=== PATIENT | male | born 1950 | race Caucasian/White ===

== ENCOUNTER 2017-10-23 12:41 | Outpatient (RCR) | payer MEDICARE, OTHER, SELFPAY ==
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
--- NOTE | 2017-11-05 16:37 | NT_ITS ---
NON TREATMENT NOTE: 11/05/17 Patient was a no show no call for today's appointment.
== END 2017-11-09 23:59 | disposition home or self-care (01) ==
LOC: PT 12:41
PROVIDERS: PCP Family Medicine; Referring Provider Family Medicine; Visit Provider Family Medicine
DX: M54.5 Low back pain (principal); M53.86 Other specified dorsopathies, lumbar region
CPT/HCPCS: 97162; G8978

== ENCOUNTER 2017-11-26 15:46 | Outpatient (REF) | payer MEDICARE, OTHER, SELFPAY ==
[2017-11-26 22:39] LABS: Abs Immature Grans 0.02 k/cumm (0.0-0.09); Absolute Basophil Count 0.04 k/cumm (0.0-0.2); Absolute Eosinophil Count 0.09 k/cumm (0.0-0.7); Absolute Lymphocyte Count 1.63 k/cumm (1.2-3.4); Absolute Monocyte Count 0.48 k/cumm (0.11-0.7); Absolute Neutrophil Count 4.09 k/cumm (1.2-6.7); Basophils % 0.6; Eosinophils % 1.4; HCT 41.3 % (40.0-50.0); Immature Grans % 0.3; Lymphocytes % 25.7; Mean Corp. HGB Concentration 33.9 g/dL (32.0-36.0); Mean Corpuscular Hemoglobin 29.2 pg (27.0-33.0); Mean Corpuscular Volume 86.2 fL (80-95); Mean Platelet Volume 10.8 fL (8.0-11.0); Monocytes % 7.6; Neutrophils % 64.4; Platelet Count 228 x1000/uL (130-400); RBC 4.79 m/cumm (4.50-6.00); RBC Distribution Width 13.8 % (11.8-14.1); White Blood Cell Count 6.35 k/cumm (4.4-10.8)
[2017-11-26 22:42] LABS: ALT 17 U/L (12-78); AST 11 U/L (15-37); Albumin 3.1 g/dL (3.4-5.0); Alkaline Phosphatase 90 U/L (46-116); Anion Gap 9.5 mmol/L (3-11); BUN 22 mg/dL (7-18); CO2 26.5 mmol/L (21.0-32.0); CREATININE 1.26 mg/dL (0.70-1.30); Calcium 9.1 mg/dL (8.5-10.1); Chloride 98 mmol/L (98-107); Estimated GFR 57.44 (mL/min/1.73m2); Glucose 326 mg/dL (70-100); Potassium 3.8 mmol/L (3.5-5.1); Sodium 134 mmol/L (136-145); TSH (W/Ref FT4) 10.99 uIU/mL (0.358-3.74); Total Protein 6.7 g/dL (6.4-8.2)
[2017-11-26 23:12] LABS: FREE T4 0.87 ng/dL (0.76-1.46)
== END 2017-11-26 16:06 ==
LOC: NCHCN 15:46
PROVIDERS: PCP Family Medicine; Visit Provider Family Medicine
DX: K21.9 Gastro-esophageal reflux disease without esophagitis (principal); N28.9 Disorder of kidney and ureter, unspecified; F32.9 Major depressive disorder, single episode, unspecified; E11.9 Type 2 diabetes mellitus without complications
CPT/HCPCS: 80053; 84439; 84443; 85025

== ENCOUNTER → 2018-01-15 09:00 | Outpatient (BNVA) | payer MEDICARE, OTHER, MEDICAID, SELFPAY | PROVIDERS: PCP Family Medicine; Visit Provider Nurse Practitioner Family | DX: I25.810 Atherosclerosis of coronary artery bypass graft(s) without angina pectoris (principal); Z95.818 Presence of other cardiac implants and grafts; R00.1 Bradycardia, unspecified; I44.2 Atrioventricular block, complete; Z45.018 Encounter for adjustment and management of other part of cardiac pacemaker; I35.0 Nonrheumatic aortic (valve) stenosis; G47.30 Sleep apnea, unspecified; I10 Essential (primary) hypertension; E11.40 Type 2 diabetes mellitus with diabetic neuropathy, unspecified; Z79.4 Long term (current) use of insulin; J44.9 Chronic obstructive pulmonary disease, unspecified | CPT/HCPCS: 93288; 99213 ==

== ENCOUNTER 2018-06-20 16:46 | Outpatient (REF) | payer MEDICARE, OTHER, SELFPAY, MEDICAID ==
[2018-06-20 21:43] LABS: Anion Gap 8.5 mmol/L (3-11); BUN 27 mg/dL (7-18); CO2 29.5 mmol/L (21.0-32.0); CREATININE 1.38 mg/dL (0.70-1.30); Calcium 9.1 mg/dL (8.5-10.1); Chloride 92 mmol/L (98-107); Estimated GFR 51.71 (mL/min/1.73m2); Glucose 493 mg/dL (70-100); Potassium 4.2 mmol/L (3.5-5.1); Sodium 130 mmol/L (136-145)
== END 2018-06-20 17:06 ==
LOC: NCHCN 16:46
PROVIDERS: PCP Family Medicine; Visit Provider Registered Nurse
DX: I10 Essential (primary) hypertension (principal); E11.9 Type 2 diabetes mellitus without complications
CPT/HCPCS: 80048

== ENCOUNTER 2018-07-10 13:23 | Emergency (ER) | payer MEDICARE, OTHER, MEDICAID, SELFPAY ==
[2018-07-10 13:31] VITALS: BP 147/76; PULSE 70; RESP 14; TEMP 36.6; O2SAT 98
--- NOTE | 2018-07-10 13:40 | ED.GENADUL_ITS ---
Discharge Plan Disposition Patient Disposition: HOME Condition: Stable Discharge Details Chief Complaint: RashLesion Clinical Impression: Abrasion of leg, left Primary Care Provider: [facility] ED Provider: Juan A Mcgraw Home Meds and New Rx's Prescriptions: No Action cholecalciferol (vitamin D3) 1,000 UNIT capsule 1,000 unit PO DAILY RF: 0 beclomethasone dipropionate [Qvar] 8.7 GM aerosol 2 puff Inhalation BID RF: 0 mometasone [Nasonex] 17 GM spray,non-aerosol 2 spry NS DAILY RF: 0 fluticasone propion-salmeterol [Advair Diskus] 1 EACH blister with device 1 puff Inhalation BID RF: 0 clopidogrel [Plavix] 75 MG tablet 75 mg PO DAILY RF: 0 oxycodone-acetaminophen [Percocet] 1 EACH tablet 1 tab-cap PO Q6H PRN RF: 0 econazole 15 GM cream 15 gm Topical BID RF: 0 ketorolac [Acular LS] 5 ML drops 1 drp Ophthalmic QID RF: 0 chlorhexidine gluconate [Peridex] 473 ML mouthwash 473 ml Mucous Membrane BID RF: 0 albuterol sulfate [ProAir RespiClick] 90 MCG aerosol powdr breath activated 90 mcg Inhalation Q4H PRN RF: 0 insulin lispro [Humalog KwikPen Insulin] 200 UNIT/1 ML insulin pen 200 unit SQ as directed RF: 0 tamsulosin 0.4 MG capsule 0.4 mg PO DAILY RF: 0 insulin aspart U-100 [Novolog Flexpen U-100 Insulin] 100 UNIT/1 ML insulin pen 30 Sub-Q TID RF: 0 umeclidinium [Incruse Ellipta] 62.5 MCG blister with device 1 puff Inhalation DAILY RF: 0 ezetimibe [Zetia] 10 MG tablet 10 mg PO QAM RF: 0 aspirin [Aspir-81] 81 MG tablet,delayed release (DR/EC) 81 mg PO QAM RF: 0 bupropion HCl 300 MG tablet extended release 24 hr 300 mg PO QAM RF: 0 escitalopram oxalate [Lexapro] 20 MG tablet 20 mg PO QAM RF: 0 isosorbide mononitrate 120 MG tablet extended release 24 hr 120 mg PO QAM RF: 0 furosemide 40 MG tablet 40 mg PO DAILY RF: 0 atorvastatin [Lipitor] 80 MG tablet 80 mg PO HS RF: 0 ropinirole 2 MG tablet 2 mg PO HS RF: 0 metformin 500 MG tablet extended release 24 hr 500 mg PO BID RF: 0 nitroglycerin [Nitrostat] 0.4 MG tablet, sublingual 0.4 mg Sublingual PRN PRNRF: 0 multivitamin [Daily Multi-Vitamin] 1 EACH tablet 2 tab PO QAM RF: 0 losartan 25 MG tablet 25 mg PO DAILY RF: 0 metoprolol succinate 100 MG tablet extended release 24 hr 100 mg PO DAILY RF: 0 levothyroxine 150 MCG tablet 150 mcg PO DAILY RF: 0 clotrimazole 15 GM cream 1 applic Topical RF: 0 insulin glargine [Lantus Solostar U-100 Insulin] 100 UNIT/ML insulin pen 54 unit SQ QAM RF: 0 omeprazole 20 MG capsule,delayed release(DR/EC) 40 mg PO BID Qty: 0 RF: 0 meclizine 25 MG tablet 25 mg PO Q8H PRN (Reason: Vertigo) Qty: 20 RF: 0 Discharge Instructions Instructions: Abrasion (ED) Additional Instructions: Continue to take your normally prescribed daily medication and apply bacitracin ointment 2 times daily to the wound and continue to observe over the next couple days. For any significant worsening of symptoms, odorous drainage, or spreading redness please return to emergency department or your primary care provider for reassessment. Referrals: [facility] [Primary Care Provider] - (As needed for reassessment or if wound is not healing) Medical Decision Making Patient presenting the emergency department for chief complaint of injury to left lower leg. Patient states approximately 6 days ago he had a side table fall and strike him in the back of the left lower leg. People have asked him what happened making him concerned due to his diabetes about needing to get it checked out. Patient has a superficial abrasion with appropriate healing scabbing and mild redness to the area but no spreading redness, no streaking, patient denies any severe pain or discomfort and no other symptoms are noted. Wound does not appear to be infected at this time and appears appropriate for superficial abrasion. Given patient is a diabetic he was instructed on bacitracin use and informed that he should use this twice daily for the next 3 days and continue to watch wound closely and return for any new or significant worsening of symptoms. Full return precautions were discussed. After discussion of diagnosis and plan of care patient has no further needs, questions, or concerns and states clear understanding to return to the emergency department for any worsening symptoms. HPI General Mode of arrival: ambulatory . Date/Time Provider Initiated Documentation: 07/10/18 13:26 . Limitations to Documentation: no limitations . Information obtained by: patient and RN notes reviewed . History of Present Ill last 68 year old M presents to the emergency department with the chief complaint of Left leg injury, described as mild, with intensity rated at 2. Quality is described as aching, and is localized to the left and lower extremity. Patient started experiencing this day(s) (6) and it has been constant. No relieving factors improve symptom(s), No exacerbating factors reported . Patient notes no other symptoms.. Patient did receive the following treatments prior to arrival, none Related Data Home Medications Medication Instructions Recorded Confirmed aspirin [Aspir-81] 81 mg PO QAM 01/05/14 01/15/18 atorvastatin [Lipitor] 80 mg PO HS 01/05/14 01/15/18 bupropion HCl 300 mg PO QAM 01/05/14 01/15/18 escitalopram oxalate [Lexapro] 20 mg PO QAM 01/05/14 01/15/18 ezetimibe [Zetia] 10 mg PO QAM 01/05/14 01/15/18 furosemide 40 mg PO DAILY 01/05/14 01/15/18 isosorbide mononitrate 120 mg PO QAM 01/05/14 01/15/18 metformin 500 mg PO BID 01/05/14 01/15/18 multivitamin [Daily Multi-Vitamin] 2 tab PO QAM 01/05/14 01/15/18 nitroglycerin [Nitrostat] 0.4 mg SUBLINGUAL PRN PRN 01/05/14 01/15/18 ropinirole 2 mg PO HS 01/05/14 01/15/18 cholecalciferol (vitamin D3) 1,000 unit PO DAILY 04/21/15 01/15/18 losartan 25 mg PO DAILY 02/12/16 01/15/18 beclomethasone dipropionate [Qvar] 2 puff INHALATION BID inhaler 03/01/16 01/15/18 meclizine 25 mg PO Q8H PRN #20 tab 11/08/16 01/15/18 mometasone [Nasonex] 2 spry NS DAILY spray 01/08/17 01/15/18 clotrimazole 1 applic TOPICAL 04/02/17 01/15/18 insulin glargine [Lantus Solostar 54 unit SQ QAM 04/02/17 01/15/18 U-100 Insulin] levothyroxine 150 mcg PO DAILY 04/02/17 01/15/18 metoprolol succinate 100 mg PO DAILY 04/02/17 01/15/18 omeprazole 40 mg PO BID #0 tab-cap 04/02/17 01/15/18 albuterol sulfate [ProAir 90 mcg INHALATION Q4H PRN 07/10/17 01/15/18 RespiClick] chlorhexidine gluconate [Peridex] 473 ml MUCOUS MEMBRANE BID 07/10/17 01/15/18 clopidogrel [Plavix] 75 mg PO DAILY tab-cap 07/10/17 01/15/18 econazole 15 gm TOPICAL BID 07/10/17 01/15/18 fluticasone propion-salmeterol 1 puff INHALATION BID disk 07/10/17 01/15/18 [Advair Diskus] insulin lispro [Humalog KwikPen 200 unit SQ as directed 07/10/17 01/15/18 Insulin] ketorolac [Acular LS] 1 drp OPHTHALMIC QID drp 07/10/17 01/15/18 oxycodone-acetaminophen [Percocet] 1 tab-cap PO Q6H PRN tab-cap 07/10/17 01/15/18 insulin aspart U-100 [Novolog 30 SUB-Q TID 07/20/17 01/15/18 Flexpen U-100 Insulin] tamsulosin 0.4 mg PO DAILY tab-cap 07/20/17 01/15/18 umeclidinium [Incruse Ellipta] 1 puff INHALATION DAILY 07/20/17 01/15/18 Previous Rx's Medication Instructions Recorded meclizine 25 mg PO Q8H PRN #20 tab 11/08/16 omeprazole 40 mg PO BID #0 tab-cap 04/02/17 Allergies Allergy/AdvReac Type Severity Reaction Status Date / Time No Known Allergies Allergy Unverified 07/10/18 13:35 General Stated Complaint: RashLesion DAYLIN: 5 Review of Systems Constitutional Denies chills and Denies fever(s) Cardiovascular Denies chest pain and Denies dyspnea Respiratory Denies dyspnea Integumentary/Breasts Reports as per HPI and Reports erythema PFSH Medical History Aortic valve replaced CAD (coronary artery disease) COPD (chronic obstructive pulmonary disease) DM (diabetes mellitus) Diabetic neuropathy HTN (hypertension) Hypothyroidism IVETTE (obstructive sleep apnea) Pacemaker Renal insufficiency Surgical History Coronary Artery Bypass Gaft (CABG) Coronary Stent Pacemaker Replacement of aortic valve Social History Smoking/Tobacco Use Status: Never Drug use: Never Do you feel safe at home: Yes Do you feel safe in your relationship?: Yes Exam Const General: cooperative, no acute distress and not ill appearing Orientation: alert, awake and oriented x3 Resp Effort & Inspection: normal respiratory effort, able to speak in complete sentences and no respiratory distress Skin Trauma: abrasion (Superficial abrasion to posterior distal tib-fib) Neuro General: alert, awake and oriented x3 Course Vital Signs Temperature 36.6 C 07/10/18 13:31 Pulse 70 07/10/18 13:31 Respiratory Rate 14 07/10/18 13:31 Blood Pressure 147/76 H 07/10/18 13:31 Pulse Oximetry 98 07/10/18 13:31 Temperature 36.6 C 07/10/18 13:31 Temperature Source Temporal Artery Scan 07/10/18 13:31 Pulse 70 07/10/18 13:31 Respiratory Rate 14 07/10/18 13:31 Respiratory Effort Non-Labored 07/10/18 13:32 Blood Pressure 147/76 H 07/10/18 13:31 Blood Pressure Position Sitting 07/10/18 13:31 Pulse Oximetry 98 07/10/18 13:31 Oxygen Delivery Method Room Air 07/10/18 13:31 Oxygen Flow Rate 0 07/10/18 13:31 Pain Level 0 07/10/18 13:31
== END 2018-07-10 13:46 | disposition home or self-care (01) ==
LOC: ER 13:57
PROVIDERS: Emergency Provider Nurse Practitioner Family; PCP Registered Nurse
DX: S80.812A Abrasion, left lower leg, initial encounter (principal); W22.8XXA Striking against or struck by other objects, initial encounter; E11.9 Type 2 diabetes mellitus without complications; Z79.4 Long term (current) use of insulin
CPT/HCPCS: 99282

== ENCOUNTER → 2018-07-23 13:04 | Outpatient (BNVA) | payer MEDICARE, OTHER, SELFPAY, MEDICAID | PROVIDERS: PCP Registered Nurse; Visit Provider Nurse Practitioner Family | DX: I25.10 Atherosclerotic heart disease of native coronary artery without angina pectoris (principal); J44.9 Chronic obstructive pulmonary disease, unspecified; E11.40 Type 2 diabetes mellitus with diabetic neuropathy, unspecified; I10 Essential (primary) hypertension; I49.5 Sick sinus syndrome; Z45.018 Encounter for adjustment and management of other part of cardiac pacemaker; N18.9 Chronic kidney disease, unspecified; E11.22 Type 2 diabetes mellitus with diabetic chronic kidney disease | CPT/HCPCS: 93280; 99212; 99214 ==

== ENCOUNTER 2018-07-23 13:51 | Emergency (ER) | payer MEDICARE, OTHER, MEDICAID, SELFPAY ==
[2018-07-23] VITALS (14 sets, daily range): BP systolic 90–117; BP diastolic 54–67; PULSE 61–69; RESP 11–23; TEMP 36.6; O2SAT 90–99
--- NOTE | 2018-07-23 13:54 | DI.RAD_ITS ---
SYMPTOMS/DIAGNOSIS: FATIGUE PA AND LATERAL CHEST: Comparison is made with July,. Cardiomegaly, pacemaker, sternal wires, coronary artery stents and proximal aortic stent are again noted. The lungs appear clear. No infiltrate, effusion or pulmonary edema is seen. There is no visible mass or adenopathy. IMPRESSION: No acute abnormality.
[2018-07-23 14:10] LABS: Abs Immature Grans 0.01 k/cumm (0.0-0.09); Absolute Basophil Count 0.07 k/cumm (0.0-0.2); Absolute Eosinophil Count 0.16 k/cumm (0.0-0.7); Absolute Monocyte Count 0.42 k/cumm (0.11-0.7); Absolute Neutrophil Count 3.03 k/cumm (1.2-6.7); Basophils % 1.3; HCT 40.2 % (40.0-50.0); HGB 14.2 g/dL (13.5-17.5); Immature Grans % 0.2; Lymphocytes % 31.5; Mean Corp. HGB Concentration 35.3 g/dL (32.0-36.0); Mean Corpuscular Hemoglobin 29.8 pg (27.0-33.0); Mean Corpuscular Volume 84.3 fL (80-95); Mean Platelet Volume 10.2 fL (8.0-11.0); Monocytes % 7.8; Neutrophils % 56.2; Platelet Count 226 x1000/uL (130-400); RBC 4.77 m/cumm (4.50-6.00); RBC Distribution Width 13.1 % (11.8-14.1); White Blood Cell Count 5.39 k/cumm (4.4-10.8)
[2018-07-23 14:35] LABS: ALT 23 U/L (12-78); AST 13 U/L (15-37); Albumin 2.9 g/dL (3.4-5.0); Alkaline Phosphatase 89 U/L (46-116); Anion Gap 6.9 mmol/L (3-11); BUN 28 mg/dL (7-18); CO2 29.1 mmol/L (21.0-32.0); CREATININE 1.65 mg/dL (0.70-1.30); Chloride 89 mmol/L (98-107); Estimated GFR 41.95 (mL/min/1.73m2); Lipase 312 U/L (73-393); NT-proBNP 848 pg/mL; Potassium 4.6 mmol/L (3.5-5.1); Sodium 125 mmol/L (136-145); TSH (W/Ref FT4) 11.58 uIU/mL (0.358-3.74); Total Protein 7.3 g/dL (6.4-8.2); Troponin I 0.02 ng/mL (0.00-0.06)
--- NOTE | 2018-07-23 14:44 | W.ED.GENAD ---
Discharge Plan Disposition Patient Disposition: HOME Condition: Good Discharge Details Chief Complaint: Chest Pain Clinical Impression: Hyperglycemia, Medically noncompliant, Acute hyponatremia, Disease of thyroid gland Primary Care Provider: ALEXUS LAN ED Provider: Torsten Diane Home Meds and New Rx's Prescriptions: No Action mirtazapine 15 mg tablet 15 mg PO DAILY RF: 0 Slow-Mag 71.5 mg tablet,delayed release (DR/EC) 71.5 mg PO BID RF: 0 cholecalciferol (vitamin D3) 1,000 UNIT capsule 1,000 unit PO DAILY RF: 0 beclomethasone dipropionate [Qvar] 8.7 GM aerosol 2 puff Inhalation BID RF: 0 fluticasone propion-salmeterol [Advair Diskus] 1 EACH blister with device 1 puff Inhalation BID RF: 0 albuterol sulfate [ProAir RespiClick] 90 MCG aerosol powdr breath activated 90 mcg Inhalation Q4H PRN RF: 0 insulin lispro [Humalog KwikPen Insulin] 200 UNIT/1 ML insulin pen 200 unit SQ as directed RF: 0 tamsulosin 0.4 MG capsule 0.4 mg PO DAILY RF: 0 insulin aspart U-100 [Novolog Flexpen U-100 Insulin] 100 UNIT/1 ML insulin pen 30 Sub-Q TID RF: 0 umeclidinium [Incruse Ellipta] 62.5 MCG blister with device 1 puff Inhalation DAILY RF: 0 ezetimibe [Zetia] 10 MG tablet 10 mg PO QAM RF: 0 aspirin [Aspir-81] 81 MG tablet,delayed release (DR/EC) 81 mg PO QAM RF: 0 escitalopram oxalate [Lexapro] 20 MG tablet 20 mg PO QAM RF: 0 isosorbide mononitrate 120 MG tablet extended release 24 hr 120 mg PO QAM RF: 0 furosemide 40 MG tablet 40 mg PO DAILY RF: 0 atorvastatin [Lipitor] 80 MG tablet 80 mg PO HS RF: 0 ropinirole 2 MG tablet 2 mg PO HS RF: 0 metformin 500 MG tablet extended release 24 hr 500 mg PO BID RF: 0 nitroglycerin [Nitrostat] 0.4 MG tablet, sublingual 0.4 mg Sublingual PRN PRNRF: 0 multivitamin [Daily Multi-Vitamin] 1 EACH tablet 2 tab PO QAM RF: 0 losartan 25 mg tablet 100 mg PO DAILY RF: 0 metoprolol succinate 100 MG tablet extended release 24 hr 100 mg PO DAILY RF: 0 levothyroxine 150 MCG tablet 150 mcg PO DAILY RF: 0 insulin glargine [Lantus Solostar U-100 Insulin] 100 UNIT/ML insulin pen 54 unit SQ QAM RF: 0 omeprazole 20 MG capsule,delayed release(DR/EC) 40 mg PO BID Qty: 0 RF: 0 meclizine 25 MG tablet 25 mg PO Q8H PRN (Reason: Vertigo) Qty: 20 RF: 0 Discharge Instructions Instructions: Diabetic Hyperglycemia (ED) Additional Instructions: Please take your insulin and Lantus as directed, do not miss any doses. Please eat foods high in salt over the next few days as your sodium is slightly low. Your thyroid level certainly needs further management, and reassessment by a primary care provider. If you change your mind on wanting a family doctor please let us know and we will be happy to set one up for you immediately. Please drink some Gatorade over the next few days to be well-hydrated and supplement your sodium levels. If you notice any worsening of your symptoms, or any new symptoms such as vomiting, diarrhea, fever, chills, shortness of breath, chest pain, numbness, weakness, or fainting , please return immediately to the emergency department for reevaluation. Please follow up with your primary care provider as soon as possible for reassessment and reevaluation. As always, it was a pleasure participating in your medical care today. Referrals: ALEXUS LAN NP [Primary Care Provider] - Discharge Data Discharge Date/Time-TO BE ENTERED AT DEPARTURE: 07/23/18 17:30 Medical Decision Making This is a pleasant 68-year-old male with past medical history COPD, coronary artery disease, pacemaker defibrillator, anemia and anxiety who presents today for generalized feelings of unwellness. He was getting his pacemaker defibrillator interrogated but while up there medical staff felt that he looked unwell, and recommended that he come in for further evaluation. Currently the patient has no complaints to speak of. He does have some chronic chest pain which he states is unchanged, occasional loose stools mild nausea and cough. Very nonspecific symptoms. I did ask the patient if he felt sad, depressed, or suicidal. He states that he does feel little sad but does not feel depressed and has had no thoughts of taking his life. He states specifically that he does not want any resources or any help at this time. He also reassures me that he is not a danger to himself. We will perform a cardiac work-up, imaging of his chest, rehydrate, and perform laboratory work-up 18: 00 Patient's laboratory work-up has returned, he demonstrates a notably elevated glucose at 700. No evidence of acidosis, and bicarb is normal. I discussed this with the patient and he states that for the last few days he has not been checking his sugar levels and he has not been taking his insulin. I have asked why and he states that he just does not feel like taking it. Remainder of his laboratory work-up is returned, EKG is relatively benign, troponin is normal, sodium is low at 125, he has been gently rehydrated with normal saline here. Upon reassessment he is actually feeling much better after the rehydration. We did give the patient 30 units of subcu insulin, and his sugars are beginning to trend downwards with this. I discussed admission, continued fluids, and further management with the patient, however he has made it very clear that he feels fine, and he would like to go home and he does not want to be admitted. Additionally he does not want additional lab testing for further cardiac evaluation. He states very clearly that he understands his risks, his current medical status, as well as the importance of medical noncompliance and the risk of not complying with this. The patient is asking to go home. I again offered him multiple resources for both mental health counseling, help and assistance at home, as well as new primary care provider referral for management of his diabetes, and he reiterates multiple times that he does not want any additional assistance, he feels that he will be able to control care for himself medically on his own. Respecting the patient's wishes we will allow him to be discharged home, and he understands the notable risk of this. He is of clear mind, and demonstrates good decision-making capacity. I discussed with him that he can return at any time for continued and further management, and all he needs to do is contact us and we will set him up with a PCP or counselors on an outpatient basis. I have extensively reviewed the treatment plan and discharge instructions with the patient. I have addressed all patient concerns at this time. The patient was made aware of what symptoms to monitor for that would warrant a return to the emergency department. Discussed the plan with the patient, they demonstrate verbal understanding and agreement with our assessment and plan at this time. EKG 13: 57 Rate 60 intervals normal, sinus rhythm, right bundle branch block, findings are consistent with previous EKG on 06/01/2017 and 10/04/2017. No acute changes. No significant ST changes. High sugar, sugar going down, patient wanting to go Exam(s) a RAD:XR chest 2V PA & lateral SYMPTOMS/DIAGNOSIS: FATIGUE PA AND LATERAL CHEST: Comparison is made with July,. Cardiomegaly, pacemaker, sternal wires, coronary artery stents and proximal aortic stent are again noted. The lungs appear clear. No infiltrate, effusion or pulmonary edema is seen. There is no visible mass or adenopathy. IMPRESSION: No acute abnormality. Ordered By: Torsten Diane DO [facility] General Date/Time Provider Initiated Documentation: 07/23/18 13:54. HPI Narrative: This is a pleasant 68-year-old male with a past medical history of pacemaker defibrillator, coronary artery disease, COPD, diabetes, depression, irritable bowel syndrome, hypothyroidism, chronic anemia, who presents today for evaluation of malaise. The patient was getting his pacemaker interrogated at a standard visit appointment with his machine try out setter. While up there the medical staff noticed that he appeared more fatigued, pale, and were concerned. The recommend he go down to the ER for further evaluation. Pacemaker interrogation at that time per medical staff was negative with no abnormalities. On my assessment the patient does have a complaint of chronic left-sided chest pain, he states that it is unchanged from his normal feeling. He has had it for months upon months, and there is been no acute worsening or change. He does admit to an occasional cough which is unchanged, occasional diarrhea and nausea but no vomiting. He denies any fever or chills. He denies any abdominal pain. He denies any numbness tingling or weakness. He has no other complaints at this time. He denies any other modifying factors. Related Data Home Medications Medication Instructions Recorded Confirmed aspirin [Aspir-81] 81 mg PO QAM 01/05/14 07/23/18 atorvastatin [Lipitor] 80 mg PO HS 01/05/14 07/23/18 escitalopram oxalate [Lexapro] 20 mg PO QAM 01/05/14 07/23/18 ezetimibe [Zetia] 10 mg PO QAM 01/05/14 07/23/18 furosemide 40 mg PO DAILY 01/05/14 07/23/18 isosorbide mononitrate 120 mg PO QAM 01/05/14 07/23/18 metformin 500 mg PO BID 01/05/14 07/23/18 multivitamin [Daily Multi-Vitamin] 2 tab PO QAM 01/05/14 07/23/18 nitroglycerin [Nitrostat] 0.4 mg SUBLINGUAL PRN PRN 01/05/14 07/23/18 ropinirole 2 mg PO HS 01/05/14 07/23/18 cholecalciferol (vitamin D3) 1,000 unit PO DAILY 04/21/15 07/23/18 beclomethasone dipropionate [Qvar] 2 puff INHALATION BID inhaler 03/01/16 01/15/18 meclizine 25 mg PO Q8H PRN #20 tab 11/08/16 07/23/18 insulin glargine [Lantus Solostar 54 unit SQ QAM 04/02/17 01/15/18 U-100 Insulin] levothyroxine 150 mcg PO DAILY 04/02/17 07/23/18 metoprolol succinate 100 mg PO DAILY 04/02/17 07/23/18 omeprazole 40 mg PO BID #0 tab-cap 04/02/17 07/23/18 albuterol sulfate [ProAir 90 mcg INHALATION Q4H PRN 07/10/17 01/15/18 RespiClick] fluticasone propion-salmeterol 1 puff INHALATION BID disk 07/10/17 01/15/18 [Advair Diskus] insulin lispro [Humalog KwikPen 200 unit SQ as directed 07/10/17 01/15/18 Insulin] insulin aspart U-100 [Novolog 30 SUB-Q TID 07/20/17 01/15/18 Flexpen U-100 Insulin] tamsulosin 0.4 mg PO DAILY tab-cap 07/20/17 07/23/18 umeclidinium [Incruse Ellipta] 1 puff INHALATION DAILY 07/20/17 01/15/18 losartan 25 mg tablet 100 mg PO DAILY tab 07/23/18 07/23/18 magnesium 71.5 mg (magnesium 71.5 mg PO BID tab 07/23/18 07/23/18 chloride) tablet,delayed release mirtazapine 15 mg tablet 15 mg PO DAILY 07/23/18 07/23/18 Previous Rx's Medication Instructions Recorded meclizine 25 mg PO Q8H PRN #20 tab 11/08/16 omeprazole 40 mg PO BID #0 tab-cap 04/02/17 Allergies Allergy/AdvReac Type Severity Reaction Status Date / Time No Known Allergies Allergy Unverified 07/23/18 14:04 General Stated Complaint: Chest Pain DAYLIN: 2 Review of Systems Review of Systems All systems reviewed & are unremarkable except as noted in HPI and below PFSH Social History Smoking/Tobacco Use Status: Never Alcohol Intake: never Drug use: Never Do you feel safe at home: Yes Do you feel safe in your relationship?: Yes Exam Narrative Exam Narrative: 1.Const: Well-nourished, Well-developed, appearing stated age, morbidly obese 2.Eyes: PERRL, no conjunctival injection, and symmetrical lids. 3.ENT: Atraumatic external nose and ears. Moist MM. Neck: Symmetric, trachea midline, No thyromegaly. 4.CVS: +S1/S2, No murmurs or gallops. Peripheral pulses 2+ and equal in all extremities. Brisk capillary refill in all extremities. Questionable mild reproducible left-sided chest pain on palpation in the epigastric region 5.RESP: Unlabored respiratory effort. Clear to auscultation bilaterally. No wheezes rales or rhonchi 6.GI: Soft, Nontender/Nondistended, No hepatosplenomegaly. No guarding or rebound. 7.MSK: Normocephalic/Atraumatic, Extremities w/o deformity or ttp No cyanosis or clubbing, Normal movement of all extremities 8.Skin: Warm, Dry. No rashes or lesions. 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 Sensation grossly intact, no focal neurologic deficits. 10.Psych: (AAO) x3. Appropriate mood and affect Course Vital Signs Temperature 36.6 C 07/23/18 13:58 Pulse 63 05/14/19 13:58 Respiratory Rate 17 07/23/18 13:58 Blood Pressure 104/61 07/23/18 13:58 Pulse Oximetry 98 07/23/18 13:58 Temperature 36.6 C 07/23/18 13:58 Temperature Source Temporal Artery Scan 07/23/18 13:58 Pulse 63 07/23/18 13:58 Respiratory Rate 17 07/23/18 13:58 Respiratory Effort Non-Labored 07/23/18 14:02 Blood Pressure 104/61 07/23/18 13:58 Blood Pressure Position Supine 07/23/18 13:58 Pulse Oximetry 98 07/23/18 13:58 Oxygen Delivery Method Room Air 07/23/18 13:58 Oxygen Flow Rate 0 07/23/18 13:58 Pain Level 8 07/23/18 13:58 Lab/Test Results Lab/Test Results: Laboratory Tests Range/Units 07/23/18 07/23/18 14:04 14:04 WBC (4.4-10.8) k/cumm 5.39 RBC (4.50-6.00) m/cumm 4.77 Hgb (13.5-17.5) g/dL 14.2 Hct (40.0-50.0) % 40.2 MCV (80-95) fL 84.3 MCH (27.0-33.0) pg 29.8 MCHC (32.0-36.0) g/dL 35.3 RDW (11.8-14.1) % 13.1 Plt Count (130-400) x1000/uL 226 MPV (8.0-11.0) fL 10.2 Immature Gran % 0.2 Neutrophils % 56.2 Lymphocytes % 31.5 Monocytes % 7.8 Eosinophils % 3.0 Basophils % 1.3 Absolute Neutrophils (1.2-6.7) k/cumm 3.03 Absolute Lymphocytes (1.2-3.4) k/cumm 1.70 Absolute Monocytes (0.11-0.7) k/cumm 0.42 Absolute Eosinophils (0.0-0.7) k/cumm 0.16 Absolute Basophils (0.0-0.2) k/cumm 0.07 Sodium (136-145) mmol/L 125 L Potassium (3.5-5.1) mmol/L 4.6 Chloride (98-107) mmol/L 89 L Carbon Dioxide (21.0-32.0) mmol/L 29.1 Anion Gap (3-11) mmol/L 6.9 BUN (7-18) mg/dL 28 H Creatinine (0.70-1.30) mg/dL 1.65 H Estimated GFR/1.73 m2 (mL/min/1.73m2) 41.95 Glucose (70-100) mg/dL Total Bilirubin (0.2-1.0) mg/dL 1.0 AST (15-37) U/L 13 L ALT (12-78) U/L 23 Alkaline Phosphatase (46-116) U/L 89 Troponin I (0.00-0.06) ng/mL 0.02 NT-Pro-B Natriuret Pep ( - 299) pg/mL 848 H Total Protein (6.4-8.2) g/dL 7.3 Albumin (3.4-5.0) g/dL 2.9 L Lipase (73-393) U/L 312 TSH (0.358-3.74) uIU/mL 11.58 H
[2018-07-23] MEDS: Normal Saline 250 ML 1000 ML IV (14:45)
[2018-07-23 14:55] LABS: Calcium 9.4 mg/dL (8.5-10.1); FREE T4 1.08 ng/dL (0.76-1.46)
[2018-07-23 15:03] LABS: Glucose 733 mg/dL (70-100)
[2018-07-23] MEDS: Insulin REGULAR-Human 100 UNITS/ML UNIT 30 UNITS SC (15:22)
[2018-07-23 16:59] LABS: Glucose 681 mg/dL (70-100)
== END 2018-07-23 17:30 | disposition home or self-care (01) ==
PROVIDERS: Emergency Provider Student in an Organized Health Care Education/Training Program; PCP Registered Nurse
DX: E11.65 Type 2 diabetes mellitus with hyperglycemia (principal); E87.1 Hypo-osmolality and hyponatremia; E07.9 Disorder of thyroid, unspecified; I10 Essential (primary) hypertension; J44.9 Chronic obstructive pulmonary disease, unspecified; Z91.19 Patient's noncompliance with other medical treatment and regimen; Z95.0 Presence of cardiac pacemaker; I25.10 Atherosclerotic heart disease of native coronary artery without angina pectoris; E11.40 Type 2 diabetes mellitus with diabetic neuropathy, unspecified
CPT/HCPCS: 36415; 80053; 82947; 83690; 93005; 93280; 96360; 96372; 99212; 99214; 99285; 71046; 83880; 84439; 84443; 84484; 85025; 93010

== ENCOUNTER 2018-09-18 15:40 | Outpatient (REF) | payer MEDICARE, OTHER, SELFPAY, MEDICAID ==
[2018-09-18 21:42] LABS: Anion Gap 9.5 mmol/L (3-11); BUN 24 mg/dL (7-18); CO2 25.5 mmol/L (21.0-32.0); Calcium 8.7 mg/dL (8.5-10.1); Chloride 94 mmol/L (98-107); Estimated GFR 46.82 (mL/min/1.73m2); Potassium 4.8 mmol/L (3.5-5.1); Sodium 129 mmol/L (136-145)
[2018-09-18 21:51] LABS: Glucose 715 mg/dL (70-100)
[2018-09-18 22:03] LABS: Hemoglobin A1C 13.2 % (4.5-6.2)
== END 2018-09-18 16:00 ==
LOC: NCHCN 15:40
PROVIDERS: PCP Registered Nurse; Visit Provider Registered Nurse
DX: E11.40 Type 2 diabetes mellitus with diabetic neuropathy, unspecified (principal); I10 Essential (primary) hypertension
CPT/HCPCS: 80048; 83036

== ENCOUNTER 2018-10-04 04:11 | Emergency (ER) | payer MEDICARE, OTHER, MEDICAID, SELFPAY ==
[2018-10-04] VITALS (17 sets, daily range): BP systolic 120–131; BP diastolic 52–103; PULSE 72–89; RESP 20; TEMP 36.2–36.6; O2SAT 95–98
[2018-10-04] MEDS: Normal Saline 1,000 ML 1000 ML IV (04:05)
--- NOTE | 2018-10-04 04:17 | ED.GENADUL_ITS ---
Discharge Plan Disposition Patient Disposition: HOME Condition: Good Discharge Details Chief Complaint: Nk/Back Pain Clinical Impression: Right-sided low back pain with sciatica, Hyperglycemia without ketosis Primary Care Provider: ALEXUS LAN ED Provider: Jaylen España [place] Meds and New Rx's Prescriptions: New lidocaine [Lidoderm] 5 % Adhesive Patch,Medicated 1 patch topical DIRECTED Qty: 15 RF: 0 Continued mirtazapine 15 mg tablet 15 mg PO DAILY RF: 0 Slow-Mag 71.5 mg tablet,delayed release (DR/EC) 71.5 mg PO BID RF: 0 cholecalciferol (vitamin D3) 1,000 UNIT capsule 1,000 unit PO DAILY RF: 0 Qvar 8.7 GM aerosol 2 puff Inhalation BID RF: 0 fluticasone propion-salmeterol [Advair Diskus] 1 EACH blister with device 1 puff Inhalation BID RF: 0 ProAir RespiClick 90 MCG aerosol powdr breath activated 90 mcg Inhalation Q4H PRN RF: 0 tamsulosin 0.4 MG capsule 0.4 mg PO DAILY RF: 0 Novolog Flexpen U-100 Insulin 100 UNIT/1 ML insulin pen 30 unit Sub-Q TID RF: 0 ezetimibe [Zetia] 10 MG tablet 10 mg PO QAM RF: 0 aspirin [Aspir-81] 81 MG tablet,delayed release (DR/EC) 81 mg PO QAM RF: 0 escitalopram oxalate [Lexapro] 20 MG tablet 20 mg PO QAM RF: 0 isosorbide mononitrate 120 MG tablet extended release 24 hr 120 mg PO QAM RF: 0 furosemide 40 MG tablet 40 mg PO DAILY RF: 0 atorvastatin [Lipitor] 80 MG tablet 80 mg PO HS RF: 0 ropinirole 2 MG tablet 2 mg PO HS RF: 0 nitroglycerin [Nitrostat] 0.4 MG tablet, sublingual 0.4 mg Sublingual PRN PRNRF: 0 multivitamin [Daily Multi-Vitamin] 1 EACH tablet 2 tab PO QAM RF: 0 losartan 25 mg tablet 100 mg PO DAILY RF: 0 metoprolol succinate 100 MG tablet extended release 24 hr 100 mg PO DAILY RF: 0 levothyroxine 150 MCG tablet 150 mcg PO DAILY RF: 0 Lantus Solostar U-100 Insulin 100 UNIT/ML insulin pen 54 unit SQ QAM RF: 0 omeprazole 20 MG capsule,delayed release(DR/EC) 40 mg PO BID Qty: 0 RF: 0 meclizine 25 MG tablet 25 mg PO Q8H PRN (Reason: Vertigo) Qty: 20 RF: 0 gabapentin 300 mg Capsule 300 mg PO HS RF: 0 Discharge Instructions Additional Instructions: Use the Lidoderm patches as directed, apply patch for 12 hours then remove for 12 hours. Please take Tylenol 1 g every 6-8 hours in addition to using the Lidoderm patches. Please monitor your blood sugars. Follow-up with your primary care next week as planned. Return to the emergency department if you develop worsening back pain, inability to ambulate, bladder or bowel dysfunction, lower extremity weakness, abdominal pain, fever, persistently elevated blood sugar. Referrals: ALEXUS LAN REFRIGERATION MANAGER [Primary Care Provider] - Medical Decision Making This patient's chief complaint is right low back pain with radiation down the right leg with ambulation. Certainly appears to be sciatica related. He has no midline spinal tenderness. He has no new neurologic deficits. The decreased sensation in his lower extremities is chronic and unchanged due to neuropathy from diabetes. He has no weakness. He has no bladder or bowel incontinence. He has not taken anything for this pain including Tylenol or Motrin. We will go ahead and apply a Lidoderm patch. We will give a one-time dose of IV Toradol 15 mg. His sugar is elevated and EMS started a line with fluids. I will go ahead and check a CBC and chemistry and get a urine but I do not think this back pain is related to pyelonephritis, kidney stone, abdominal process. It is not abnormal for patient to have elevated sugars according to him. Patient's back is feeling better with the Lidoderm and Toradol. We will not continue nonsteroidal use because of his history of diabetes, hypertension, renal insufficiency. Will prescribe Lidoderm patches and have him use Tylenol as well. Laboratory studies significant for sugar over 500. He received a liter of saline and 10 units of regular insulin subcu. Repeat fingerstick showed glucose to be 186. There are no ketones in his urine. There is no anion gap. No evidence of urinary tract infection. No elevated white count. Patient will be discharged home. He has follow-up with his primary care next week. Return to ED for increasing back pain, bladder or bowel dysfunction, lower extremity weakness, abdominal pain, fever, persistent elevated glucose. Lab Data Lab results reviewed: Yes I reviewed the patient's lab results. HPI General Mode of arrival: EMS . Date/Time Provider Initiated Documentation: 10/04/18 04:57 . Limitations to Documentation: no limitations . Information obtained by: patient and RN notes reviewed . HPI Narrative: Patient presents to ED by ambulance with complaint of right low back pain. He has had it for about 2 weeks. He has not seen his primary care doctor yet. He is supposed to see her next week. Pain has got worse to the point where he has shooting pain down the right leg when he is trying to walk. He denies weakness. The leg gives out because of pain. He has diabetic neuropathy and chronic numbness which he does not think is worse. He has no bladder or bowel incontinence. He has some mild nausea but no abdominal pain. He has no fevers. He denies chest pain or shortness of breath. He denies rash. There is no mid line back pain. He has been running high on sugar and when EMS checked it, he was > 500. IV was started and fluids given. Patient reports baseline sugar is typically in the 200 range. Related Data Home Medications Medication Instructions Recorded Confirmed aspirin [Aspir-81] 81 mg PO QAM 01/05/14 10/04/18 atorvastatin [Lipitor] 80 mg PO HS 01/05/14 10/04/18 escitalopram oxalate [Lexapro] 20 mg PO QAM 01/05/14 10/04/18 ezetimibe [Zetia] 10 mg PO QAM 01/05/14 10/04/18 furosemide 40 mg PO DAILY 01/05/14 10/04/18 isosorbide mononitrate 120 mg PO QAM 01/05/14 10/04/18 multivitamin [Daily Multi-Vitamin] 2 tab PO QAM 01/05/14 10/04/18 nitroglycerin [Nitrostat] 0.4 mg SUBLINGUAL PRN PRN 01/05/14 10/04/18 ropinirole 2 mg PO HS 01/05/14 10/04/18 cholecalciferol (vitamin D3) 1,000 unit PO DAILY 04/21/15 10/04/18 Qvar 2 puff INHALATION BID inhaler 03/01/16 10/04/18 meclizine 25 mg PO Q8H PRN #20 tab 11/08/16 10/04/18 Lantus Solostar U-100 Insulin 54 unit SQ QAM 04/02/17 10/04/18 levothyroxine 150 mcg PO DAILY 04/02/17 10/04/18 metoprolol succinate 100 mg PO DAILY 04/02/17 10/04/18 omeprazole 40 mg PO BID #0 tab-cap 04/02/17 10/04/18 ProAir RespiClick 90 mcg INHALATION Q4H PRN 07/10/17 10/04/18 fluticasone propion-salmeterol 1 puff INHALATION BID disk 07/10/17 10/04/18 [Advair Diskus] Novolog Flexpen U-100 Insulin 30 unit SUB-Q TID 07/20/17 10/04/18 tamsulosin 0.4 mg PO DAILY tab-cap 07/20/17 10/04/18 losartan 25 mg tablet 100 mg PO DAILY tab 07/23/18 10/04/18 magnesium chloride 71.5 mg 71.5 mg PO BID tab 07/23/18 10/04/18 (magnesium chloride) tablet,delayed release mirtazapine 15 mg tablet 15 mg PO DAILY 07/23/18 10/04/18 gabapentin 300 mg PO HS 10/04/18 10/04/18 lidocaine [Lidoderm] 1 patch TOPICAL DIRECTED #15 10/04/18 each Previous Rx's Medication Instructions Recorded meclizine 25 mg PO Q8H PRN #20 tab 11/08/16 omeprazole 40 mg PO BID #0 tab-cap 04/02/17 lidocaine [Lidoderm] 1 patch TOPICAL DIRECTED #15 10/04/18 each Allergies Allergy/AdvReac Type Severity Reaction Status Date / Time No Known Allergies Allergy Unverified 10/04/18 04:29 General Stated Complaint: FlankPain DAYLIN: 2 Review of Systems Review of Systems 12/23 Review of Systems completed and is negative except as stated above in HPI (Systems reviewed: Const, Eyes, ENT, Resp, CV, GI, , MSK, Skin, Neuro) PFSH Social History Smoking/Tobacco Use Status: Never Alcohol Intake: never Drug use: Never Do you feel safe at home: Yes Do you feel safe in your relationship?: Yes Exam Narrative Exam Narrative: Vitals: Afebrile with normal vital signs. Const: Obese male in NAD. HEENT: NC/AT. Normal facial exam. Eyes: Normal conjunctiva and sclera. Neck: Supple. Trachea midline. Lungs: Normal respiratory effort. Lungs are clear. Cor: RRR without murmur/gallop. Good distal pulses including B DP pulses. GI: Soft. NT/ND. No guarding or rebound. Back: No CVAT. No spinal tenderness. Tender with palpation over the right lower lumbar area. No tenderness over the sciatic nerve. Neuro: A+O x 3. CN grossly in tact. 5/5 strength throughout. Sensory decreased in LE (chronic and unchanged per patient due to neuropathy). Anal wink present. Ext: No C/C. BLE edema. No deformity or tenderness. Skin: Warm and dry without rash. Course Vital Signs Temperature 97.9 F 10/04/18 04:02 Pulse 82 10/04/18 04:02 Respiratory Rate 20 10/04/18 04:02 Blood Pressure 131/61 10/04/18 04:02 Temperature 97.9 F 10/04/18 04:02 Temperature Source Temporal Artery Scan 10/04/18 04:02 Pulse 82 10/04/18 04:02 Respiratory Rate 20 10/04/18 04:02 Respiratory Effort 10/04/18 04:02 Blood Pressure 131/61 10/04/18 04:02 Blood Pressure Position Supine 10/04/18 04:02 Oxygen Delivery Method Room Air 10/04/18 04:02 Oxygen Flow Rate 0 10/04/18 04:02 Pain Level 8 10/04/18 04:02
[2018-10-04 04:30] LABS: Abs Immature Grans 0.01 k/cumm (0.0-0.09); Absolute Basophil Count 0.05 k/cumm (0.0-0.2); Absolute Eosinophil Count 0.16 k/cumm (0.0-0.7); Absolute Lymphocyte Count 1.95 k/cumm (1.2-3.4); Absolute Monocyte Count 0.44 k/cumm (0.11-0.7); Absolute Neutrophil Count 2.74 k/cumm (1.2-6.7); Basophils % 0.9; HCT 37.2 % (40.0-50.0); HGB 12.8 g/dL (13.5-17.5); Immature Grans % 0.2; Lymphocytes % 36.4; Mean Corp. HGB Concentration 34.4 g/dL (32.0-36.0); Mean Corpuscular Hemoglobin 29.6 pg (27.0-33.0); Mean Corpuscular Volume 86.1 fL (80-95); Mean Platelet Volume 10.1 fL (8.0-11.0); Monocytes % 8.2; Neutrophils % 51.3; Platelet Count 225 x1000/uL (130-400); RBC 4.32 m/cumm (4.50-6.00); RBC Distribution Width 13.6 % (11.8-14.1); White Blood Cell Count 5.35 k/cumm (4.4-10.8)
[2018-10-04] MEDS: Ketorolac 15 MG/ML VIAL IVP (04:35)
[2018-10-04 04:38] LABS: Bilirubin Negative (Negative); Blood Small (Negative); Clarity Clear (Clear); Glucose 500 mg/dL (Negative); Ketones Negative (Negative); Leukocyte Esterase Negative (Negative); Nitrite Negative (Negative); Urobilinogen 0.2 EU/dL (Up TO 0.2)
[2018-10-04 04:43] LABS: Anion Gap 9.9 mmol/L (3-11); BUN 20 mg/dL (7-18); CO2 27.1 mmol/L (21.0-32.0); CREATININE 1.34 mg/dL (0.70-1.30); Calcium 8.7 mg/dL (8.5-10.1); Chloride 98 mmol/L (98-107); Estimated GFR 53.33 (mL/min/1.73m2); Potassium 3.5 mmol/L (3.5-5.1); Sodium 135 mmol/L (136-145)
[2018-10-04] MEDS: Lidocaine 5% Patch 1 PATCH TP (04:45)
[2018-10-04 04:47] LABS: Bacteria Rare HPF (Negative); C & S Indicated? No; Casts Negative LPF (Negative); Crystals Negative HPF (Negative); Epithelial Cells Negative HPF (Negative); Mucus Negative (Negative); Other Cells Negative (Negative); WBC 0-2 HPF (0-5)
[2018-10-04] MEDS: Insulin REGULAR-Human 100 UNITS/ML UNIT 10 UNITS SC (05:07)
[2018-10-07 12:04] LABS: Glucose 533 mg/dL (70-100)
== END 2018-10-04 06:49 | disposition home or self-care (01) ==
PROVIDERS: Emergency Provider Emergency Medicine; PCP Registered Nurse
DX: M54.41 Lumbago with sciatica, right side (principal); E11.65 Type 2 diabetes mellitus with hyperglycemia; E11.22 Type 2 diabetes mellitus with diabetic chronic kidney disease; I12.9 Hypertensive chronic kidney disease with stage 1 through stage 4 chronic kidney disease, or unspecified chronic kidney disease; N18.9 Chronic kidney disease, unspecified; E11.42 Type 2 diabetes mellitus with diabetic polyneuropathy
CPT/HCPCS: 36415; 36416; 80048; 82962; 96361; 96372; 96374; 99284; 81003; 81015; 85025; J1885

== ENCOUNTER 2018-10-14 17:56 | Outpatient (REF) | payer MEDICARE, OTHER, MEDICAID, SELFPAY ==
[2018-10-14 21:28] LABS: Abs Immature Grans 0.03 k/cumm (0.0-0.09); Absolute Basophil Count 0.06 k/cumm (0.0-0.2); Absolute Eosinophil Count 0.12 k/cumm (0.0-0.7); Absolute Lymphocyte Count 1.75 k/cumm (1.2-3.4); Absolute Monocyte Count 0.52 k/cumm (0.11-0.7); Absolute Neutrophil Count 3.15 k/cumm (1.2-6.7); Basophils % 1.1; Eosinophils % 2.1; HCT 39.5 % (40.0-50.0); HGB 13.3 g/dL (13.5-17.5); Immature Grans % 0.5; Lymphocytes % 31.1; Mean Corp. HGB Concentration 33.7 g/dL (32.0-36.0); Mean Corpuscular Hemoglobin 29.6 pg (27.0-33.0); Mean Platelet Volume 10.1 fL (8.0-11.0); Monocytes % 9.2; Platelet Count 233 x1000/uL (130-400); RBC 4.49 m/cumm (4.50-6.00); RBC Distribution Width 13.5 % (11.8-14.1); White Blood Cell Count 5.63 k/cumm (4.4-10.8)
[2018-10-14 21:42] LABS: ALT 17 U/L (12-78); AST 17 U/L (15-37); Albumin 2.6 g/dL (3.4-5.0); Alkaline Phosphatase 88 U/L (46-116); Anion Gap 6.8 mmol/L (3-11); BUN 14 mg/dL (7-18); CO2 30.2 mmol/L (21.0-32.0); CREATININE 1.41 mg/dL (0.70-1.30); Chloride 95 mmol/L (98-107); Estimated GFR 50.29 (mL/min/1.73m2); Magnesium 1.3 mg/dL (1.8-2.4); Potassium 4.4 mmol/L (3.5-5.1); Sodium 132 mmol/L (136-145); Total Protein 6.2 g/dL (6.4-8.2)
[2018-10-14 21:48] LABS: Glucose 649 mg/dL (70-100)
== END 2018-10-14 18:16 ==
LOC: NCHCN 17:56
PROVIDERS: PCP Registered Nurse; Visit Provider Registered Nurse
DX: E11.9 Type 2 diabetes mellitus without complications (principal); I25.10 Atherosclerotic heart disease of native coronary artery without angina pectoris; I10 Essential (primary) hypertension; N28.9 Disorder of kidney and ureter, unspecified; R41.0 Disorientation, unspecified; Z95.2 Presence of prosthetic heart valve
CPT/HCPCS: 80053; 83735; 85025

== ENCOUNTER 2018-10-15 06:33 | Inpatient (IN) | payer MEDICARE, OTHER, MEDICAID, SELFPAY ==
[2018-10-15] VITALS (48 sets, daily range): BP systolic 153–187; BP diastolic 79–108; PULSE 67–83; RESP 16; TEMP 36.5–37; O2SAT 89–100
--- NOTE | 2018-10-15 06:43 | ED.GENADUL_ITS ---
Discharge Plan Disposition Patient Disposition: STILL A PATIENT Condition: Stable Discharge Details Chief Complaint: Headache Clinical Impression: Headache, Nausea & vomiting Primary Care Provider: ALEXUS LAN ED Provider: Estee Peterson Home Meds and New Rx's Prescriptions: No Action mirtazapine 15 mg tablet 15 mg PO DAILY RF: 0 Slow-Mag 71.5 mg tablet,delayed release (DR/EC) 71.5 mg PO BID RF: 0 cholecalciferol (vitamin D3) 1,000 UNIT capsule 1,000 unit PO DAILY RF: 0 Qvar 8.7 GM aerosol 2 puff Inhalation BID RF: 0 fluticasone propion-salmeterol [Advair Diskus] 1 EACH blister with device 1 puff Inhalation BID RF: 0 ProAir RespiClick 90 MCG aerosol powdr breath activated 90 mcg Inhalation Q4H PRN RF: 0 tamsulosin 0.4 MG capsule 0.4 mg PO DAILY RF: 0 Novolog Flexpen U-100 Insulin 100 UNIT/1 ML insulin pen 30 unit Sub-Q TID RF: 0 ezetimibe [Zetia] 10 MG tablet 10 mg PO QAM RF: 0 aspirin [Aspir-81] 81 MG tablet,delayed release (DR/EC) 81 mg PO QAM RF: 0 escitalopram oxalate [Lexapro] 20 MG tablet 20 mg PO QAM RF: 0 isosorbide mononitrate 120 MG tablet extended release 24 hr 120 mg PO QAM RF: 0 furosemide 40 MG tablet 40 mg PO DAILY RF: 0 atorvastatin [Lipitor] 80 MG tablet 80 mg PO HS RF: 0 ropinirole 2 MG tablet 2 mg PO HS RF: 0 nitroglycerin [Nitrostat] 0.4 MG tablet, sublingual 0.4 mg Sublingual PRN PRNRF: 0 multivitamin [Daily Multi-Vitamin] 1 EACH tablet 2 tab PO QAM RF: 0 losartan 25 mg tablet 100 mg PO DAILY RF: 0 metoprolol succinate 100 MG tablet extended release 24 hr 100 mg PO DAILY RF: 0 levothyroxine 150 MCG tablet 150 mcg PO DAILY RF: 0 Lantus Solostar U-100 Insulin 100 UNIT/ML insulin pen 54 unit SQ QAM RF: 0 omeprazole 20 MG capsule,delayed release(DR/EC) 40 mg PO BID Qty: 0 RF: 0 meclizine 25 MG tablet 25 mg PO Q8H PRN (Reason: Vertigo) Qty: 20 RF: 0 gabapentin 300 mg Capsule 300 mg PO HS RF: 0 lidocaine [Lidoderm] 5 % Adhesive Patch,Medicated 1 patch topical DIRECTED Qty: 15 RF: 0 Medical Decision Making <Drake Vasquez MD - Last Filed: 10/15/18 07:36> 68 yo male with multiple medical problems including CAD, copd, DM, HTN, CKD comes in with cc of nausea and vomit and not feeling well since yesterday. He states he has had intermittent n/vand epigastric pain and pain in the head that has slowly been worsening. Denies any trauma or falls and states the SERRANO is not the worst of his life. He has no vision changes and no new focal motor or sensation deficits. Suspect the headache is from migraine as he states he used to have this when he wasyounger but given his age will obtain ct head to eval for SDH. SERRANO is not worst of his life and not thunderclap on description so doubt sah. 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 He does have some epigastric tenderness and given the n/v will obtain CT abd/pelvis to eval for possible sbo among other surgical pathology. given his hx of cad will also obtain ecg and troponin to eval for possible atypical presentation of acs. labs show a troponin of 0.51 and glucose over 500, normal ph on venous ph so doubt dka, will order dose of insulin. Given lack of chest pain and no ischemic findings on ekg, and still pending imaging will hold on asa, plavix and heparin. Pt will be signed out to oncoming provider pending final results and disposition Differential Diagnosis sdh, pancreatitis, sbo, cholecystitis Lab Data Lab results reviewed: Yes I reviewed the patient's lab results. ECG Data Attestation: I personally reviewed and interpreted this ECG (s) as follows: Prior ECG tracings: available for review Interpretation: sinus rhythm, rbbb, rate of 75, no acute st wave ischemic changes compared to old ekg <Estee Peterson MD - Last Filed: 10/15/18 11:21> Sher Hinkle was signed out to me by Dr. Vasquez at time of shift change with imaging and disposition pending. Per radiology over the phone, CT abdomen pelvis negative, CT head shows subacute occipital and parietal infarcts. In my exam of the patient he is alert, cranial nerves are intact, motor is intact in all extremities. He is complaining of mild to moderate headache of gradual onset that began yesterday, similar to migraine headaches that he had years ago. Not the worst headache of his life. He also reports general malaise and nausea. I discussed patient with transfer center at [facility] at 910, given patient's recent admission there and patient's request that he be transferred there over [facility], in addition to patient stable condition at this time.. Awaiting callback. 9:26 transfer center called back, hospitalist not available for consultation for at least 40 minutes. I contacted [facility] transfer center for possible transfer given delay. Awaiting callback from both facilities. I discussed patient presentation and results with Dr. Marroquin of hospitalist medicine and Dr. Epperson of neurology at [facility] who reviewed CT head images that were sent over. Per Dr. Epperson of neurology, patient should undergo either CTA of the head and neck or MRA of the head and neck for evaluation of vessels, also needs general outpatient versus inpatient studies including echocardiogram. Needs gradual lowering of blood pressure. He states that there is no need for admission for stroke at this time, as further studies and treatment can be performed on an out patient basis. He also states that should patient need anticoagulation for an STEMI, the risk should be discussed with the patient but it would be generally recommended that patient have typical NSTEMI anticoagulation. Per Dr. Marroquin, unless patient were to have continued elevation in troponin, no indication for transfer at this time. I also discussed patient presentation results with cardiology at [facility], who also felt that patient would not be catheterized at this time unless significant elevation in troponin occurred. Pending second troponin. On reassessment patient reports that he continues to have mild general malaise, mild headache, and no other pain. No other new symptoms. Patient given 1 g magnesium for hypomagnesemia. Second troponin resulted at 0.40. Fingerstick blood sugar 350. Plan for admission to [facility]. Patient is amenable to the plan. Patient admitted to Dr. Peraza. Clinical Impression: Subacute strokes, hyperglycemia, elevated troponin, hypertension Disposition: [facility] inpatient Medical Records Medical records reviewed: Yes I reviewed the patient's medical records. Imaging Data Radiologic Study: Attestation: I personally reviewed and interpreted this imaging study as follows: Radiologist's impression: NONCONTRAST HEAD CT: Comparison is made with 12/13/14. There is an area of low attenuation in the posterior right temporal lobe extending posteriorly into the right occipital lobe. The findings are consistent with a subacute infarct. There is no significant mass effect. There is underlying atrophy, unchanged. The ventricles are normal in size. There is no evidence of hemorrhage. No skull fracture or sinus opacification is seen. IMPRESSION: Area of low attenuation in the right temporo-occipital region could represent a subacute infarct. A mass is less likely. ABDOMEN AND PELVIC CT: Comparison is made with 05/23/17. Images were performed from the lung bases through the ischial tuberosities after IV and a limited amount of oral contrast. The oral contrast is seen in the stomach and proximal duodenum. Proximal aortic stents and pacemaker leads are seen. The lung bases are clear. The liver, gallbladder, spleen, pancreas and adrenals are unremarkable. There are bilateral renal cysts. The aorta is normal in diameter and shows mild calcification. The prostate appears normal in size. The bladder is unremarkable. There is no bowel dilatation or inflammatory change. IMPRESSION: No acute abnormality. Lab Data Lab results reviewed: Yes I reviewed the patient's lab results. Laboratory Tests Range/Units 10/15/18 10/15/18 10/15/18 06:53 06:53 06:53 WBC (4.4-10.8) k/cumm 7.04 RBC (4.50-6.00) m/cumm 5.30 Hgb (13.5-17.5) g/dL 15.8 D Hct (40.0-50.0) % 45.6 MCV (80-95) fL 86.0 MCH (27.0-33.0) pg 29.8 MCHC (32.0-36.0) g/dL 34.6 RDW (11.8-14.1) % 13.5 Plt Count (130-400) x1000/uL 251 MPV (8.0-11.0) fL 9.7 Immature Gran % 0.3 Neutrophils % 67.4 Lymphocytes % 21.0 Monocytes % 7.4 Eosinophils % 2.3 Basophils % 1.6 Absolute Neutrophils (1.2-6.7) k/cumm 4.75 Absolute Lymphocytes (1.2-3.4) k/cumm 1.48 Absolute Monocytes (0.11-0.7) k/cumm 0.52 Absolute Eosinophils (0.0-0.7) k/cumm 0.16 Absolute Basophils (0.0-0.2) k/cumm 0.11 PT (9.3-11.0) sec 9.6 INR (0.9-1.1) 1.0 APTT (21.0-31.4) sec 24.7 VBG pH (7.32-7.43) VBG pCO2 (34-47) mm/Hg VBG pO2 (28-44) mm/Hg VBG HCO3 (22-28) mmol/L VBG Total CO2 (22-29) mmol/L VBG O2 Saturation (70-80) % VBG Base Excess (-3-3) mmol/L Sodium (136-145) mmol/L 126 L Potassium (3.5-5.1) mmol/L 4.1 Chloride (98-107) mmol/L 90 L Carbon Dioxide (21.0-32.0) mmol/L 30.3 Anion Gap (3-11) mmol/L 5.7 BUN (7-18) mg/dL 15 Creatinine (0.70-1.30) mg/dL 1.28 Estimated GFR/1.73 m2 (mL/min/1.73m2) 56.23 Glucose (70-100) mg/dL 514 H* D Calcium (8.5-10.1) mg/dL 9.9 Magnesium (1.8-2.4) mg/dL 1.5 L Total Bilirubin (0.2-1.0) mg/dL 1.2 H AST (15-37) U/L 14 L ALT (12-78) U/L 16 Alkaline Phosphatase (46-116) U/L 92 Creatine Kinase (39-308) U/L Troponin I (0.00-0.06) ng/mL 0.51 H* Total Protein (6.4-8.2) g/dL 8.0 Albumin (3.4-5.0) g/dL 2.9 L Lipase (73-393) U/L 116 Urine Color (Yellow) Urine Clarity (Clear) Urine pH (5-8) Ur Specific [place] (1.005-1.025) Urine Protein (Negative) mg/dL Urine Ketones (Negative) mg/dL Urine Blood (Negative) Urine Nitrite (Negative) Urine Bilirubin (Negative) Urine Urobilinogen (Up TO 0.2) EU/dL Ur Leukocyte Esterase (Negative) Urine RBC (0-2) Urine WBC (0-5) HPF Ur Epithelial Cells (Negative) HPF Urine Crystals (Negative) HPF Urine Bacteria (Negative) HPF Urine Casts (Negative) LPF Urine Mucus (Negative) Ur Culture Indicated? Urine Glucose (Negative) mg/dL Range/Units 10/15/18 10/15/18 10/15/18 06:53 07:10 09:55 WBC (4.4-10.8) k/cumm RBC (4.50-6.00) m/cumm Hgb (13.5-17.5) g/dL Hct (40.0-50.0) % MCV (80-95) fL MCH (27.0-33.0) pg MCHC (32.0-36.0) g/dL RDW (11.8-14.1) % Plt Count (130-400) x1000/uL MPV (8.0-11.0) fL Immature Gran % Neutrophils % Lymphocytes % Monocytes % Eosinophils % Basophils % Absolute Neutrophils (1.2-6.7) k/cumm Absolute Lymphocytes (1.2-3.4) k/cumm Absolute Monocytes (0.11-0.7) k/cumm Absolute Eosinophils (0.0-0.7) k/cumm Absolute Basophils (0.0-0.2) k/cumm PT (9.3-11.0) sec INR (0.9-1.1) APTT (21.0-31.4) sec VBG pH (7.32-7.43) 7.40 VBG pCO2 (34-47) mm/Hg 52 H VBG pO2 (28-44) mm/Hg 33 VBG HCO3 (22-28) mmol/L 33 H VBG Total CO2 (22-29) mmol/L 29 VBG O2 Saturation (70-80) % 63 L VBG Base Excess (-3-3) mmol/L 7.7 H Sodium (136-145) mmol/L Potassium (3.5-5.1) mmol/L Chloride (98-107) mmol/L Carbon Dioxide (21.0-32.0) mmol/L Anion Gap (3-11) mmol/L BUN (7-18) mg/dL Creatinine (0.70-1.30) mg/dL Estimated GFR/1.73 m2 (mL/min/1.73m2) Glucose (70-100) mg/dL Calcium (8.5-10.1) mg/dL Magnesium (1.8-2.4) mg/dL Total Bilirubin (0.2-1.0) mg/dL AST (15-37) U/L ALT (12-78) U/L Alkaline Phosphatase (46-116) U/L Creatine Kinase (39-308) U/L Troponin I (0.00-0.06) ng/mL 0.40 H* Total Protein (6.4-8.2) g/dL Albumin (3.4-5.0) g/dL Lipase (73-393) U/L Urine Color (Yellow) Yellow Urine Clarity (Clear) Clear Urine pH (5-8) 7.0 Ur Specific [place] (1.005-1.025) 1.020 Urine Protein (Negative) mg/dL >=300 H Urine Ketones (Negative) mg/dL Negative Urine Blood (Negative) Moderate H Urine Nitrite (Negative) Negative Urine Bilirubin (Negative) Negative Urine Urobilinogen (Up TO 0.2) EU/dL 0.2 Ur Leukocyte Esterase (Negative) Negative Urine RBC (0-2) 20-50 H Urine WBC (0-5) HPF 0-2 Ur Epithelial Cells (Negative) HPF Few Urine Crystals (Negative) HPF Negative Urine Bacteria (Negative) HPF Few Urine Casts (Negative) LPF Negative Urine Mucus (Negative) Trace Ur Culture Indicated? No Urine Glucose (Negative) mg/dL 500 H Range/Units 10/15/18 09:55 WBC (4.4-10.8) k/cumm RBC (4.50-6.00) m/cumm Hgb (13.5-17.5) g/dL Hct (40.0-50.0) % MCV (80-95) fL MCH (27.0-33.0) pg MCHC (32.0-36.0) g/dL RDW (11.8-14.1) % Plt Count (130-400) x1000/uL MPV (8.0-11.0) fL Immature Gran % Neutrophils % Lymphocytes % Monocytes % Eosinophils % Basophils % Absolute Neutrophils (1.2-6.7) k/cumm Absolute Lymphocytes (1.2-3.4) k/cumm Absolute Monocytes (0.11-0.7) k/cumm Absolute Eosinophils (0.0-0.7) k/cumm Absolute Basophils (0.0-0.2) k/cumm PT (9.3-11.0) sec INR (0.9-1.1) APTT (21.0-31.4) sec VBG pH (7.32-7.43) VBG pCO2 (34-47) mm/Hg VBG pO2 (28-44) mm/Hg VBG HCO3 (22-28) mmol/L VBG Total CO2 (22-29) mmol/L VBG O2 Saturation (70-80) % VBG Base Excess (-3-3) mmol/L Sodium (136-145) mmol/L Potassium (3.5-5.1) mmol/L Chloride (98-107) mmol/L Carbon Dioxide (21.0-32.0) mmol/L Anion Gap (3-11) mmol/L BUN (7-18) mg/dL Creatinine (0.70-1.30) mg/dL Estimated GFR/1.73 m2 (mL/min/1.73m2) Glucose (70-100) mg/dL Calcium (8.5-10.1) mg/dL Magnesium (1.8-2.4) mg/dL Total Bilirubin (0.2-1.0) mg/dL AST (15-37) U/L ALT (12-78) U/L Alkaline Phosphatase (46-116) U/L Creatine Kinase (39-308) U/L 111 Troponin I (0.00-0.06) ng/mL Total Protein (6.4-8.2) g/dL Albumin (3.4-5.0) g/dL Lipase (73-393) U/L Urine Color (Yellow) Urine Clarity (Clear) Urine pH (5-8) Ur Specific [place] (1.005-1.025) Urine Protein (Negative) mg/dL Urine Ketones (Negative) mg/dL Urine Blood (Negative) Urine Nitrite (Negative) Urine Bilirubin (Negative) Urine Urobilinogen (Up TO 0.2) EU/dL Ur Leukocyte Esterase (Negative) Urine RBC (0-2) Urine WBC (0-5) HPF Ur Epithelial Cells (Negative) HPF Urine Crystals (Negative) HPF Urine Bacteria (Negative) HPF Urine Casts (Negative) LPF Urine Mucus (Negative) Ur Culture Indicated? Urine Glucose (Negative) mg/dL ECG Data Attestation: I personally reviewed and interpreted this ECG (s) as follows: Interpretation: EKG 9:44 shows sinus rhythm at 79, normal axis, right bundle branch block, no significant change from prior HPI <Drake Vasquez MD - Last Filed: 10/15/18 07:36> General Mode of arrival: ambulatory . Date/Time Provider Initiated Documentation: 10/15/18 06:34 . Limitations to Documentation: no limitations . Information obtained by: patient . History of Present Illness 68 year old M presents to the emergency department with the chief complaint of nausea/vomit, Patient reports no radiation. Patient started experiencing this day(s) (1) and it has been constant. No relieving factors improve symptom(s), No exacerbating factors reported . Patient did receive the following treatments prior to arrival, none Related Data Home Medications Medication Instructions Recorded Confirmed aspirin [Aspir-81] 81 mg PO QAM 01/05/14 10/15/18 atorvastatin [Lipitor] 80 mg PO 01/05/14 10/15/18 escitalopram oxalate [Lexapro] 20 mg PO QAM 01/05/14 10/15/18 ezetimibe [Zetia] 10 mg PO QAM 01/05/14 10/15/18 furosemide 40 mg PO DAILY 01/05/14 10/15/18 isosorbide mononitrate 120 mg PO QAM 01/05/14 10/15/18 multivitamin [Daily Multi-Vitamin] 2 tab PO QAM 01/05/14 10/15/18 nitroglycerin [Nitrostat] 0.4 mg SUBLINGUAL PRN PRN 01/05/14 10/15/18 ropinirole 2 mg PO 01/05/14 10/15/18 cholecalciferol (vitamin D3) 1,000 unit PO DAILY 04/21/15 10/15/18 Qvar 2 puff INHALATION BID inhaler 03/01/16 10/15/18 meclizine 25 mg PO Q8H PRN #20 tab 11/08/16 10/15/18 Lantus Solostar U-100 Insulin 54 unit SQ QAM 04/02/17 10/15/18 levothyroxine 150 mcg PO DAILY 04/02/17 10/15/18 metoprolol succinate 100 mg PO DAILY 04/02/17 10/15/18 omeprazole 40 mg PO BID #0 tab-cap 04/02/17 10/15/18 ProAir RespiClick 90 mcg INHALATION Q4H PRN 07/10/17 10/15/18 fluticasone propion-salmeterol 1 puff INHALATION BID disk 07/10/17 10/15/18 [Advair Diskus] Novolog Flexpen U-100 Insulin 30 unit SUB-Q TID 07/20/17 10/15/18 tamsulosin 0.4 mg PO DAILY tab-cap 07/20/17 10/15/18 losartan 25 mg tablet 100 mg PO DAILY tab 07/23/18 10/15/18 magnesium chloride 71.5 mg 71.5 mg PO BID tab 07/23/18 10/15/18 (magnesium chloride) tablet,delayed release mirtazapine 15 mg tablet 15 mg PO DAILY 07/23/18 10/15/18 gabapentin 300 mg PO HS 10/04/18 10/15/18 lidocaine [Lidoderm] 1 patch TOPICAL DIRECTED #15 10/04/18 10/15/18 each Previous Rx's Medication Instructions Recorded meclizine 25 mg PO Q8H PRN #20 tab 11/08/16 omeprazole 40 mg PO BID #0 tab-cap 04/02/17 lidocaine [Lidoderm] 1 patch TOPICAL DIRECTED #15 10/04/18 each Allergies Allergy/AdvReac Type Severity Reaction Status Date / Time No Known Allergies Allergy Unverified 10/15/18 07:33 General Stated Complaint: Headache [place]: 3 Review of Systems <Drake Vasquez MD - Last Filed: 10/15/18 07:36> Review of Systems All systems reviewed & are unremarkable except as noted in HPI and below Constitutional Denies chills, Denies fever(s) and Denies weakness Cardiovascular Denies chest pain and Denies dyspnea Respiratory Denies dyspnea Integumentary/Breasts Denies rash Neurologic Denies weakness Endocrine Denies heat intolerance PFSH <Drake Vasquez MD - Last Filed: 10/15/18 07:36> Social History Smoking/Tobacco Use Status: Never Alcohol Intake: never Drug use: Never Do you feel safe at home: Yes Do you feel safe in your relationship?: Yes Exam <Drake Vasquez MD - Last Filed: 10/15/18 07:36> Const General: no acute distress Orientation: alert HENMT Head: normal to inspection Ears: external ears normal General nose exam: external nose normal Mouth: moist mucous membranes Eyes General: appearance normal, both eyes and all related structures Neck Neck: normal visual inspection Resp Effort & Inspection: normal respiratory effort and able to speak in complete sentences Cardio Rate: regular rate Skin General skin exam: no rashes or lesions noted Neuro General: alert and oriented x3 Extrem General: normal to inspection Psych Mental Status: mental status grossly normal Course <Drake Vasquez MD - Last Filed: 10/15/18 07:36> Vital Signs Temperature 36.9 C 10/15/18 06:38 Pulse 83 10/15/18 06:38 Respiratory Rate 16 10/15/18 06:38 Blood Pressure 187/106 H 10/15/18 06:38 Pulse Oximetry 99 10/15/18 06:38 Temperature 36.9 C 10/15/18 06:38 Temperature Source Oral 10/15/18 06:38 Pulse 83 10/15/18 06:38 Respiratory Rate 16 10/15/18 06:38 Respiratory Effort Non-Labored 10/15/18 06:40 Blood Pressure 187/106 H 10/15/18 06:38 Pulse Oximetry 99 10/15/18 06:38 Oxygen Delivery Method Room Air 10/15/18 06:38 Oxygen Flow Rate 0 10/15/18 06:38 Pain Level 10 10/15/18 06:38 Sign Out <Drake Vasquez MD - Last Filed: 10/15/18 07:36> Sign Out Data: Sign Out Comment: follow up on imaging results and dispostion Last updated by Drake Vasquez MD at 10/15/18 06:50
[2018-10-15] MEDS: Ondansetron 4 MG/2 ML VIAL IVP (06:54)
[2018-10-15] MEDS: Normal Saline 1,000 ML 1000 ML IV (06:54)
[2018-10-15] MEDS: Acetaminophen 500 MG TAB 1000 MG PO (06:55)
[2018-10-15] MEDS: Omnipaque 350 MG/ML 50 ML BTL PO (06:58)
[2018-10-15] MEDS: Breeza Beverage 473 ML BTL PO ×2 (06:59→08:45)
[2018-10-15 07:05] LABS: Abs Immature Grans 0.02 k/cumm (0.0-0.09); Absolute Basophil Count 0.11 k/cumm (0.0-0.2); Absolute Eosinophil Count 0.16 k/cumm (0.0-0.7); Absolute Lymphocyte Count 1.48 k/cumm (1.2-3.4); Absolute Monocyte Count 0.52 k/cumm (0.11-0.7); Absolute Neutrophil Count 4.75 k/cumm (1.2-6.7); BE (Venous) 7.7 mmol/L (-3-3); Basophils % 1.6; Eosinophils % 2.3; HCO3 (Venous) 33 mmol/L (22-28); HCT 45.6 % (40.0-50.0); HGB 15.8 g/dL (13.5-17.5); Immature Grans % 0.3; Mean Corp. HGB Concentration 34.6 g/dL (32.0-36.0); Mean Corpuscular Hemoglobin 29.8 pg (27.0-33.0); Mean Platelet Volume 9.7 fL (8.0-11.0); Monocytes % 7.4; Neutrophils % 67.4; O2 Sat (Venous) 63 % (70-80); Platelet Count 251 x1000/uL (130-400); RBC Distribution Width 13.5 % (11.8-14.1); TCO2 (Venous) 29 mmol/L (22-29); White Blood Cell Count 7.04 k/cumm (4.4-10.8); pCO2 (Venous) 52 mm/Hg (34-47); pO2 (Venous) 33 mm/Hg (28-44)
[2018-10-15 07:28] LABS: ALT 16 U/L (12-78); AST 14 U/L (15-37); Albumin 2.9 g/dL (3.4-5.0); Alkaline Phosphatase 92 U/L (46-116); Anion Gap 5.7 mmol/L (3-11); BUN 15 mg/dL (7-18); Bilirubin, Total 1.2 mg/dL (0.2-1.0); CO2 30.3 mmol/L (21.0-32.0); CREATININE 1.28 mg/dL (0.70-1.30); Calcium 9.9 mg/dL (8.5-10.1); Chloride 90 mmol/L (98-107); Estimated GFR 56.23 (mL/min/1.73m2); Lipase 116 U/L (73-393); Magnesium 1.5 mg/dL (1.8-2.4); PTT Activated 24.7 sec (21.0-31.4); Potassium 4.1 mmol/L (3.5-5.1); Prothrombin Time 9.6 sec (9.3-11.0); Sodium 126 mmol/L (136-145)
[2018-10-15 07:32] LABS: Troponin I 0.51 ng/mL (0.00-0.06)
[2018-10-15 07:34] LABS: Glucose 514 mg/dL (70-100)
[2018-10-15] MEDS: Insulin REGULAR-Human 100 UNITS/ML UNIT 10 UNITS IV (07:45)
[2018-10-15] MEDS: Normal Saline 1,000 ML 125 ML IV (07:49)
[2018-10-15 07:52] LABS: Bilirubin Negative (Negative); Blood Moderate (Negative); Clarity Clear (Clear); Glucose 500 mg/dL (Negative); Ketones Negative (Negative); Leukocyte Esterase Negative (Negative); Nitrite Negative (Negative); Urobilinogen 0.2 EU/dL (Up TO 0.2)
[2018-10-15 08:02] LABS: Bacteria Few HPF (Negative); Crystals Negative HPF (Negative); Epithelial Cells Few HPF (Negative); Mucus Trace (Negative); RBC 20-50 (0-2); WBC 0-2 HPF (0-5)
[2018-10-15 08:03] LABS: C & S Indicated? No; Casts Negative LPF (Negative)
[2018-10-15] MEDS: Omnipaque 350 MG/ML 100 ML BTL IJ (08:43)
[2018-10-15] MEDS: Omnipaque 350 MG/ML 50 ML BTL IJ (08:45)
[2018-10-15] MEDS: MAGNESIUM SULFATE 1 GM/100 ML BAG IVPB ×2 (09:23→11:31)
[2018-10-15 10:48] LABS: Creatine Kinase 111 U/L (39-308)
--- NOTE | 2018-10-15 11:10 | NUR.NOTE ---
Nursing Note: BGL 350. MD Peterson made aware.
[2018-10-15] MEDS: Metoprolol CR 50 MG TABCR (11:31)
[2018-10-15] MEDS: Heparin 5,000 UNITS/ML VIAL 5000 UNITS SC ×2 (11:32→20:19)
--- NOTE | 2018-10-15 12:35 | DI.US_ITS ---
SYMPTOMS/DIAGNOSIS: SUBACUTE CEREBROVASCULAR ACCIDENT CAROTID ULTRASOUND: There is scattered calcific plaque along the common carotid arteries, right greater than left. A small amount of plaque is seen in both common carotid bulbs and at the ICA origins. There is no significant visible stenosis. The velocity measurements are within the normal range, consistent with a mild, less than 50% stenosis. The vertebral arteries show antegrade flow. IMPRESSION: Mild scattered calcific plaque. No significant internal carotid artery stenosis.
--- NOTE | 2018-10-15 12:45 | DI.MRI_ITS ---
SYMPTOMS/DIAGNOSIS: SUBACUTE CEREBROVASCULAR ACCIDENT MRI OF THE BRAIN: Comparison is made with head CT performed earlier the same day. T2 sagittal, T1, T2, FLAIR, diffusion and gradient-echo axial sequences were performed. There is an area of high signal on T2 and FLAIR images in the posteroinferior right temporal lobe and extending into the right occipital lobe adjacent to the occipital horn of the lateral ventricle. There is mild mass effect on the temporal horn of the lateral ventricle. There is no midline shift. There is no evidence of hemorrhage. No additional areas of infarction are seen. The vascular flow voids appear grossly intact. There is moderate atrophy, but no significant underlying white matter changes. IMPRESSION: Subacute infarct in the right temporal and occipital lobes. MRA OF THE [place]: A 3D [id number] study was performed. The distal vertebral, basilar and distal carotid arteries, as well as [place] vasculature, show normal diameter. There is no evidence of aneurysm. IMPRESSION: Negative MRA of the [place] of [place].
--- NOTE | 2018-10-15 13:20 | MERGE_ITS ---
*[facility]* *[facility]* [address] [place] [address] Date of study: 10/15/2018 Transthoracic Echocardiography M-mode, complete 2D, complete spectral Doppler, and color Doppler *STUDY CONCLUSIONS* Impressions: Compared to the 2017 study, there has been no significant interval change. Summary: 1. Left ventricle: The cavity size was normal. There was mild concentric hypertrophy. Systolic function was at the lower limits of normal. The estimated ejection fraction was 50-55%. Although no diagnostic regional wall motion abnormality was identified, this possibility cannot be completely excluded on the basis of this study. Findings consistent with diastolic dysfunction. Doppler parameters are consistent with high ventricular filling pressure. 2. Aortic valve: History of bioprosthetic valve placement TAVR. There was no significant perivalvular regurgitation. Mean gradient (S): 17.1mm Hg. 3. Right ventricle: The cavity size was normal. Wall thickness was normal. Pacer wire noted in right ventricle. Systolic function was normal. 4. Pulmonary arteries: Pulmonary systolic pressure was increased, in the range of 40mm Hg to 45mm Hg. *PATIENT PRESENTATION* Height: 157.5cm (62in ) S/D Pressure: 159 / 80 Weight: 110.7kg (243.5lb ) BSA: 2.27m^2 Test start time: 01:25 PM. Test stop time: 02:20 PM. PERFORMING Unknown CONSULTING Adolfo Peraza ORDERING Adolfo Peraza REFERRING Adolfo Peraza PERFORMING [facility] DIRECTOR OF PROGRAMMING RT Chika (R)(RAVI) RDCS *PROCEDURE DATA* Procedure information: The patient was identified by two identifiers. This study was interpreted by [facility]. Pertinent images and digital data are archived for permanent storage and are available for subsequent review. Comparison was made to the study of 11/15/2016. Study status: Routine. Transthoracic echocardiography. M-mode, complete 2D, complete spectral Doppler, and color Doppler. A Transthoracic Echocardiogram was performed. Scanning was performed from the parasternal, apical, subcostal, and suprasternal notch acoustic windows. Images were obtained using an [id number] cardiac ultrasound machine. Image quality was fair. Study completion: The patient tolerated the procedure well. There were no complications. History: PMH: Subacute CVA. *CARDIAC ANATOMY* Left ventricle: The cavity size was normal. There was mild concentric hypertrophy. Systolic function was at the lower limits of normal. The estimated ejection fraction was 50-55%. Although no diagnostic regional wall motion abnormality was identified, this possibility cannot be completely excluded on the basis of this study. Findings consistent with diastolic dysfunction. Doppler parameters are consistent with high ventricular filling pressure. Aortic valve: History of bioprosthetic valve placement TAVR. Mobility was not restricted. Doppler: Transvalvular velocity was within the normal range. There was no stenosis. There was no regurgitation. There was no significant perivalvular regurgitation. VTI ratio of LVOT to aortic valve: 0.5. Valve area (VTI): 1.4cm^2. Indexed valve area (VTI): 0.6cm^2/m^2. Peak velocity ratio of LVOT to aortic valve: 0.5. Valve area (Vmax): 1.4cm^2. Indexed valve area (Vmax): 0.6cm^2/m^2. Mean velocity ratio of LVOT to aortic valve: 0.42. Valve area (Vmean): 1.2cm^2. Indexed valve area (Vmean): 0.5cm^2/m^2. Mean gradient (S): 17.1mm Hg. Peak gradient (S): 28.2mm Hg. Aorta: Aortic root: The aortic root was normal in size. Ascending aorta: The ascending aorta was normal in size. Mitral valve: Structurally normal valve. Mobility was not restricted. Doppler: Transvalvular velocity was within the normal range. There was no evidence for stenosis. There was trivial regurgitation. Valve area by pressure half-time: 4.3cm^2. Indexed valve area by pressure half-time: 1.9cm^2/m^2. Peak gradient (D): 5mm Hg. Left atrium: The atrium was normal in size. Right ventricle: The cavity size was normal. Wall thickness was normal. Pacer wire noted in right ventricle. Systolic function was normal. Pulmonic valve: Doppler: Transvalvular velocity was within the normal range. There was no evidence for stenosis. There was no significant regurgitation. Peak gradient (S): 3.2mm Hg. Tricuspid valve: Structurally normal valve. Doppler: Transvalvular velocity was within the normal range. There was no evidence for stenosis. There was trivial regurgitation. Pulmonary artery: Pulmonary systolic pressure was increased, in the range of 40mm Hg to 45mm Hg. Right atrium: The atrium was normal in size. Pacer wire or catheter noted in right atrium. Pericardium: There was no pericardial effusion. Systemic veins: Inferior vena cava: Well visualized. The vessel was normal in size. The respirophasic diameter changes were in the normal range (greater than or equal to 50%). Baseline ECG: Paced rhythm. Measurements Left ventricle Value 11/15/2016 Reference LV ID, ED, PLAX 5.7 cm 5.7 3.5 - 6.0 LV ID, ES, PLAX 4.0 cm 4.1 2.1 - 4.0 LV PW thickness, ED, PLAX 1.2 cm 1.2 LV end-diastolic volume, 86 ml 1-p A2C LV ejection fraction, 1-p 53 % A2C LV end-diastolic volume, 95 ml 1-p A4C LV ejection fraction, 1-p 49 % A4C LV e', lateral 0.046 m/sec LV E/e', lateral 24 LV e', medial 0.057 m/sec LV E/e', medial 20 LV e', average 0.052 m/sec LV E/e', average 22 Ventricular septum Value 11/15/2016 Reference IVS thickness, ED, PLAX 1.2 cm 1.3 LVOT Value 11/15/2016 Reference LVOT ID, A-P 1.9 cm 1.9 LVOT area 2.8 cm^2 2.8 LVOT peak velocity, S 1.34 m/sec 1.04 LVOT mean velocity, S 0.82 m/sec LVOT VTI, S 27.4 cm 25.3 LVOT peak gradient, S 7.2 mm Hg LVOT mean gradient, S 3.3 mm Hg 2.5 Stroke volume (SV), LVOT 78 ml DP Stroke index (SV/bsa), 34 ml/m^2 LVOT DP Aortic valve Value 11/15/2016 Reference Aortic valve peak 2.7 m/sec 2.9 velocity, S Aortic valve mean 2 m/sec velocity, S Aortic valve VTI, S 55.0 cm Aortic mean gradient, S 17.1 mm Hg 19 Aortic peak gradient, S 28.2 mm Hg 34.6 VTI ratio, LVOT/AV 0.5 0.39 Aortic valve area, VTI 1.4 cm^2 1.1 Velocity ratio, peak, 0.5 0.36 LVOT/AV Aortic valve area, peak 1.4 cm^2 1 velocity Velocity ratio, mean, 0.42 LVOT/AV Aortic valve area, mean 1.2 cm^2 velocity Aortic valve area/bsa, 0.5 cm^2/m^2 mean velocity Aorta Value 11/15/2016 Reference Ascending aorta ID, A-P, S 3.4 cm 3.4 Left atrium Value 11/15/2016 Reference LA ID, A-P, ES 4.0 cm LA ID/bsa, A-P 1.8 cm/m^2 <=2.2 LA volume/bsa, ES, 1-p A4C 24 ml/m^2 25 LA volume, ES, 2-p 36 ml LA volume/bsa, ES, 2-p 16 ml/m^2 Mitral valve Value 11/15/2016 Reference Mitral E-wave peak 1.12 m/sec 1.14 velocity Mitral A-wave peak 0.55 m/sec 0.66 velocity Mitral deceleration time 178 ms 150 - 230 Mitral pressure half-time 51 ms 49 Mitral peak gradient, D 5 mm Hg 5.2 Mitral E/A ratio, peak 2.02 1.73 Mitral valve area, PHT, DP 4.3 cm^2 4.5 Pulmonary veins Value 11/15/2016 Reference Pulmonary vein peak 0.31 m/sec velocity, S Pulmonary vein peak 0.83 m/sec velocity, D Pulmonary vein velocity 0.37 ratio, peak, S/D Tricuspid valve Value 11/15/2016 Reference Tricuspid regurg peak 3 m/sec 2.8 velocity Tricuspid peak RV-RA 36.8 mm Hg 30.7 gradient Right atrium Value 11/15/2016 Reference RA area, ES, A4C 15.4 cm^2 13 8.3 - 19.5 Pulmonic valve Value 11/15/2016 Reference Pulmonic peak gradient, S 3.2 mm Hg 5.2 Legend: (L) and (H) annie values outside specified reference range. I have personally reviewed the images and have reviewed and edited the reported findings. Electronically signed by Enoc Dillon 10/15/2018 15:46
[2018-10-15] MEDS: Normal Saline 1,000 ML 75 ML IV (14:38)
[2018-10-15] MEDS: Acetaminophen 325 MG TAB PO (14:47)
[2018-10-15 15:21] LABS: Sodium 133 mmol/L (136-145)
--- NOTE | 2018-10-15 16:17 | PT.INNT ---
Date of service: 10/15/18 Time of Service: 16:17 PT Notes Referral for skilled services was received today for this 68-year-old male who was brought up to the MedSurg department from the ED this afternoon for management of subacute stroke. Patient is currently with respiratory therapist and is unavailable upon arrival of this PT. Nurse stated that lab staff are coming as well to draw blood which may further limit patient availability. Physical therapy evaluation will be re-attempted tomorrow morning. Thank you very much for this referral. Melissa Cavazos PT, DPT, CLT [facility]
--- NOTE | 2018-10-15 17:18 | HPE_ITS ---
Date of service: 10/15/18 Time of Service: 17:19 Assessment and Plan (1) CVA (cerebral vascular accident): Current visit: Yes Status: Chronic Subacute CVA in poorly controlled diabetic with multiple underlying comorbidities, including HTN, dyslipidemia, and CAD. Echo, carotid ultrasound, and MRI as reported. - Maintain on telemetry overnight. - Change aspirin to daily clopidogrel, and continue high potency statin and BB therapy. - Hold losartan to allow permissive hypertension overnight, with goals of gently decreasing blood pressure. - Consult physical therapy for further evaluation, but patient does not appear to have any deficits post CVA. - Check fasting lipids, hemoglobin A1c, and repeat TSH in the morning. Neurology consult in the morning as well. (2) Type 2 diabetes mellitus with complication, with long-term current use of insulin: Current visit: No Status: Acute Continue home basal insulin regimen, initiate resistant sliding scale, and maintain patient on carb counting pre-meal insulin as well. Current blood sugar in the 500s, and review of prior ED visits appears to have patient leaving the hospital with blood sugars as high as in the 700s. Current pH appears to be normal. (3) IVETTE (obstructive sleep apnea): Current visit: No Status: Acute Continue CPAP therapy. (4) Hypothyroidism: Current visit: No Status: Acute Continue replacement therapy, and repeat TSH -elevated when last checked in July. (5) H/O aortic valve replacement: Current visit: No Status: Acute s/p TAVR in 2016, with bioprosthetic functioning well on current echocardiogram. (6) CAD (coronary artery disease): Current visit: Yes Status: Chronic Noted history of CAD, with prior history of NSTEMI, with reported previous stents and s/p CABG x4. -Continue high potency statin, beta-blocke, and change daily antiplatelet therapy from aspirin to clopidogrel given evidence of subacute CVA. -Current mild elevation in troponin is in the setting of nausea, self-reported decreased oral intake and dehydration, and subacute CVA -very unlikely to be ACS. Will maintain on telemetry and trend serial cardiac biomarkers. Current troponin downtrending and stable at 0.4. (7) DVT prophylaxis: Current visit: Yes Status: Acute SC heparin. History of Present Illness Chief Complaint: Headache Narrative: 68-year-old man with a history of uncontrolled DM, being admitted from [facility] Emergency Department on 10/15 with a diagnosis of subacute CVA. Mr. Hinkle has a past medical history significant for CAD with a prior history of NSTEMI, stenting, and s/p CABG x4 in the past. He also has uncontrolled insulin-dependent diabetes with diabetic neuropathy. Other history includes diastolic CHF, severe s/p TAVR in 2016, hx SSS & Complete Heart Block s/p PP M, PHTN, severe IVETTE on CPAP therapy, and reported carotid disease s/p Carotid endarterectomy. Other history includes dyslipidemia, COPD, hypothyroidism, HTN, depression, and anxiety. The patient presented to the ED with complaints of worsening right-sided headache ongoing since yesterday, along with some nausea without any specific abdominal pain or discomfort. He also specifically denies any chest pain, pressure, palpitations, heartburn symptoms. Routine lab work was unremarkable with the exception of a mildly low sodium at 126, a value which the patient has had in the past. Also with noted mild TIN with a creatinine of 1.4, elevated glucose which appears to be the norm for the patient, and an elevated specific gravity and urinalysis without any evidence of infection. Imaging of abdomen and pelvis with CT scanning was negative, but CT of the head showed evidence of a subacute right sided temporo-occipital infarct. He was admitted for further evaluation and treatment. Review of Systems Review of Systems All systems reviewed & are unremarkable except as noted in HPI and below PFSH Medical History Aortic valve replaced CAD (coronary artery disease) COPD (chronic obstructive pulmonary disease) Diabetic neuropathy DM (diabetes mellitus) HTN (hypertension) Hypothyroidism IVETTE (obstructive sleep apnea) Pacemaker Renal insufficiency Surgical History Coronary Artery Bypass Gaft (CABG) Coronary Stent Pacemaker Replacement of aortic valve Social History Smoking/Tobacco Use Status: Never Alcohol Intake: never Drug use: Never Do you feel safe at home: Yes Do you feel safe in your relationship?: Yes Meds Home Medications Medication Instructions Recorded Confirmed Type aspirin [Aspir-81] 81 mg PO QAM 01/05/14 10/15/18 History atorvastatin [Lipitor] 80 mg PO HS 01/05/14 10/15/18 History escitalopram oxalate [Lexapro] 20 mg PO QAM 01/05/14 10/15/18 History ezetimibe [Zetia] 10 mg PO QAM 01/05/14 10/15/18 History furosemide 40 mg PO DAILY 01/05/14 10/15/18 History isosorbide mononitrate 120 mg PO QAM 01/05/14 10/15/18 History multivitamin [Daily Multi-Vitamin] 2 tab PO QAM 01/05/14 10/15/18 History nitroglycerin [Nitrostat] 0.4 mg SUBLINGUAL PRN PRN 01/05/14 10/15/18 History ropinirole 2 mg PO HS 01/05/14 10/15/18 History cholecalciferol (vitamin D3) 1,000 unit PO DAILY 04/21/15 10/15/18 History Qvar 2 puff INHALATION BID inhaler 03/01/16 10/15/18 History meclizine 25 mg PO Q8H PRN #20 tab 11/08/16 10/15/18 Rx Lantus Solostar U-100 Insulin 54 unit SQ QAM 04/02/17 10/15/18 History levothyroxine 150 mcg PO DAILY 04/02/17 10/15/18 History metoprolol succinate 100 mg PO DAILY 04/02/17 10/15/18 History omeprazole 40 mg PO BID #0 tab-cap 04/02/17 10/15/18 Rx ProAir RespiClick 90 mcg INHALATION Q4H PRN 07/10/17 10/15/18 History fluticasone propion-salmeterol 1 puff INHALATION BID disk 07/10/17 10/15/18 History [Advair Diskus] Novolog Flexpen U-100 Insulin 30 unit SUB-Q TID 07/20/17 10/15/18 History tamsulosin 0.4 mg PO DAILY tab-cap 07/20/17 10/15/18 History losartan 25 mg tablet 100 mg PO DAILY tab 07/23/18 10/15/18 History magnesium chloride 71.5 mg 71.5 mg PO BID tab 07/23/18 10/15/18 History (magnesium chloride) tablet,delayed release mirtazapine 15 mg tablet 15 mg PO DAILY 07/23/18 10/15/18 History gabapentin 300 mg PO HS 10/04/18 10/15/18 History lidocaine [Lidoderm] 1 patch TOPICAL DIRECTED #15 10/04/18 10/15/18 Rx each Allergies Allergy/AdvReac Type Severity Reaction Status Date / Time No Known Allergies Allergy Unverified 10/15/18 07:33 Exam Narrative Exam Narrative: General: Patient appears comfortable, AAOX3, NAD Neck: Supple CV: Regular, nontachycardic, S1S2, No rubs, murmurs, or gallops. Pulmonary: Clear to auscultation bilaterally, no crackles, wheezing, or rhonchi on limited anterior and lateral oral exam Abdomen: + Bowel Sounds, soft, nontender, nondistended Vascular: No lower extremity edema Neurologic: CN II-XII grossly intact. No focal deficits. Psych: Normal mood and affect. Results Imaging Additional studies: Exam(s) a CT:CT abdomen & pelvis w a CT:CT head wo SYMPTOM/DIAGNOSIS: HEADACHE, NAUSEA, VOMITING, EPIGASTRIC PAIN NONCONTRAST HEAD CT: Comparison is made with 12/13/14. There is an area of low attenuation in the posterior right temporal lobe extending posteriorly into the right occipital lobe. The findings are consistent with a subacute infarct. There is no significant mass effect. There is underlying atrophy, unchanged. The ventricles are normal in size. There is no evidence of hemorrhage. No skull fracture or sinus opacification is seen. IMPRESSION: Area of low attenuation in the right temporo-occipital region could represent a subacute infarct. A mass is less likely. ABDOMEN AND PELVIC CT: Comparison is made with 05/23/17. Images were performed from the lung bases through the ischial tuberosities after IV and a limited amount of oral contrast. The oral contrast is seen in the stomach and proximal duodenum. Proximal aortic stents and pacemaker leads are seen. The lung bases are clear. The liver, gallbladder, spleen, pancreas and adrenals are unremarkable. There are bilateral renal cysts. The aorta is normal in diameter and shows mild calcification. The prostate appears normal in size. The bladder is unremarkable. There is no bowel dilatation or inflammatory change. IMPRESSION: No acute abnormality. Exam(s) a US:US carotid SYMPTOMS/DIAGNOSIS: SUBACUTE CEREBROVASCULAR ACCIDENT CAROTID ULTRASOUND: There is scattered calcific plaque along the common carotid arteries, right greater than left. A small amount of plaque is seen in both common carotid bulbs and at the ICA origins. There is no significant visible stenosis. The velocity measurements are within the normal range, consistent with a mild, less than 50% stenosis. The vertebral arteries show antegrade flow. IMPRESSION: Mild scattered calcific plaque. No significant internal carotid artery stenosis. Exam(s) a MRI:MR angio brain wo a MRI:MR brain wo SYMPTOMS/DIAGNOSIS: SUBACUTE CEREBROVASCULAR ACCIDENT MRI OF THE BRAIN: Comparison is made with head CT performed earlier the same day. T2 sagittal, T1, T2, FLAIR, diffusion and gradient-echo axial sequences were performed. There is an area of high signal on T2 and FLAIR images in the posteroinferior right temporal lobe and extending into the right occipital lobe adjacent to the occipital horn of the lateral ventricle. There is mild mass effect on the temporal horn of the lateral ventricle. There is no midline shift. There is no evidence of hemorrhage. No additional areas of infarction are seen. The vascular flow voids appear grossly intact. There is moderate atrophy, but no significant underlying white matter changes. IMPRESSION: Subacute infarct in the right temporal and occipital lobes. MRA OF THE [place]: A 3D [id number] study was performed. The distal vertebral, basilar and distal carotid arteries, as well as [place] vasculature, show normal diameter. There is no evidence of aneurysm. IMPRESSION: Negative MRA of the [place]. --------- Exam(s) a US:US echocardiogram Date of study: 10/15/2018 Transthoracic Echocardiography M-mode, complete 2D, complete spectral Doppler, and color Doppler *STUDY CONCLUSIONS* Impressions: Compared to the 2017 study, there has been no significant interval change. Summary: 1. Left ventricle: The cavity size was normal. There was mild concentric hypertrophy. Systolic function was at the lower limits of normal. The estimated ejection fraction was 50-55%. Although no diagnostic regional wall motion abnormality was identified, this possibility cannot be completely excluded on the basis of this study. Findings consistent with diastolic dysfunction. Doppler parameters are consistent with high ventricular filling pressure. 2. Aortic valve: History of bioprosthetic valve placement TAVR. There was no significant perivalvular regurgitation. Mean gradient (S): 17.1mm Hg. 3. Right ventricle: The cavity size was normal. Wall thickness was normal. Pacer wire noted in right ventricle. Systolic function was normal. 4. Pulmonary arteries: Pulmonary systolic pressure was increased, in the range of 40mm Hg to 45mm Hg. Labs : 10/15/18 06:53 10/15/18 14:34 Laboratory Results - last 24 hr 10/15/18 10/15/18 10/15/18 06:53 06:53 06:53 WBC 7.04 RBC 5.30 Hgb 15.8 D Hct 45.6 MCV 86.0 MCH 29.8 MCHC 34.6 RDW 13.5 Plt Count 251 MPV 9.7 Immature Gran % 0.3 Neutrophils % 67.4 Lymphocytes % 21.0 Monocytes % 7.4 Eosinophils % 2.3 Basophils % 1.6 Absolute Neutrophils 4.75 Absolute Lymphocytes 1.48 Absolute Monocytes 0.52 Absolute Eosinophils 0.16 Absolute Basophils 0.11 PT 9.6 INR 1.0 APTT 24.7 VBG pH VBG pCO2 VBG pO2 VBG HCO3 VBG Total CO2 VBG O2 Saturation VBG Base Excess Sodium 126 L Potassium 4.1 Chloride 90 L Carbon Dioxide 30.3 Anion Gap 5.7 BUN 15 Creatinine 1.28 Estimated GFR/1.73 m2 56.23 Glucose 514 H* D Calcium 9.9 Magnesium 1.5 L Total Bilirubin 1.2 H AST 14 L ALT 16 Alkaline Phosphatase 92 Creatine Kinase Troponin I 0.51 H* Total Protein 8.0 Albumin 2.9 L Lipase 116 Urine Color Urine Clarity Urine pH Ur Specific [place] Urine Protein Urine Ketones Urine Blood Urine Nitrite Urine Bilirubin Urine Urobilinogen Ur Leukocyte Esterase Urine RBC Urine WBC Ur Epithelial Cells Urine Crystals Urine Bacteria Urine Casts Urine Mucus Ur Culture Indicated? Urine Glucose 10/15/18 10/15/18 10/15/18 06:53 07:10 09:55 WBC RBC Hgb Hct MCV MCH MCHC RDW Plt Count MPV Immature Gran % Neutrophils % Lymphocytes % Monocytes % Eosinophils % Basophils % Absolute Neutrophils Absolute Lymphocytes Absolute Monocytes Absolute Eosinophils Absolute Basophils PT INR APTT VBG pH 7.40 VBG pCO2 52 H VBG pO2 33 VBG HCO3 33 H VBG Total CO2 29 VBG O2 Saturation 63 L VBG Base Excess 7.7 H Sodium Potassium Chloride Carbon Dioxide Anion Gap BUN Creatinine Estimated GFR/1.73 m2 Glucose Calcium Magnesium Total Bilirubin AST ALT Alkaline Phosphatase Creatine Kinase Troponin I 0.40 H* Total Protein Albumin Lipase Urine Color Yellow Urine Clarity Clear Urine pH 7.0 Ur Specific [place] 1.020 Urine Protein >=300 H Urine Ketones Negative Urine Blood Moderate H Urine Nitrite Negative Urine Bilirubin Negative Urine Urobilinogen 0.2 Ur Leukocyte Esterase Negative Urine RBC 20-50 H Urine WBC 0-2 Ur Epithelial Cells Few Urine Crystals Negative Urine Bacteria Few Urine Casts Negative Urine Mucus Trace Ur Culture Indicated? No Urine Glucose 500 H 10/15/18 10/15/18 10/15/18 09:55 14:34 14:35 WBC RBC Hgb Hct MCV MCH MCHC RDW Plt Count MPV Immature Gran % Neutrophils % Lymphocytes % Monocytes % Eosinophils % Basophils % Absolute Neutrophils Absolute Lymphocytes Absolute Monocytes Absolute Eosinophils Absolute Basophils PT INR APTT VBG pH VBG pCO2 VBG pO2 VBG HCO3 VBG Total CO2 VBG O2 Saturation VBG Base Excess Sodium 133 L Potassium Chloride Carbon Dioxide Anion Gap BUN Creatinine Estimated GFR/1.73 m2 Glucose Calcium Magnesium Total Bilirubin AST ALT Alkaline Phosphatase Creatine Kinase 111 Troponin I 0.40 H* Total Protein Albumin Lipase Urine Color Urine Clarity Urine pH Ur Specific [place] Urine Protein Urine Ketones Urine Blood Urine Nitrite Urine Bilirubin Urine Urobilinogen Ur Leukocyte Esterase Urine RBC Urine WBC Ur Epithelial Cells Urine Crystals Urine Bacteria Urine Casts Urine Mucus Ur Culture Indicated? Urine Glucose Last Vital Signs Temp 37 C 10/15/18 14:50 Pulse 72 10/15/18 15:12 Resp 16 10/15/18 14:50 BP 154/82 H 10/15/18 14:50 Pulse Ox 96 10/15/18 14:50
[2018-10-15] MEDS: Insulin Aspart 300 UNITS/3 ML PEN SC (17:28)
[2018-10-15 19:09] LABS: Troponin I 0.34 ng/mL (0.00-0.06)
[2018-10-15] MEDS: Budesonide/Formoterol 160/4.5 6 GM 60 PUFF INH IH (20:10)
[2018-10-15] MEDS: Mometasone 220 MCG 14 DOSE INHALER 1 PUFF IH (20:11)
[2018-10-15] MEDS: Omeprazole 20 MG CAPCR 40 MG PO (20:13)
[2018-10-15] MEDS: Magnesium Chloride 64 MG TABCR PO (20:13)
[2018-10-15] MEDS: Insulin Glargine 300 UNITS/3 ML PEN 54 UNITS SC (20:16)
[2018-10-15] MEDS: Atorvastatin 40 MG TAB 80 MG PO (21:45)
[2018-10-15] MEDS: rOPINIRole 1 MG TAB 2 MG PO (21:50)
[2018-10-15] MEDS: Gabapentin 300 MG CAP PO (21:50)
[2018-10-16] VITALS (8 sets, daily range): BP systolic 85–151; BP diastolic 46–85; PULSE 60–69; RESP 17–19; TEMP 36.1–36.6; O2SAT 96–98
[2018-10-16] MEDS: Normal Saline 1,000 ML 75 ML IV (02:37)
[2018-10-16] MEDS: Heparin 5,000 UNITS/ML VIAL 5000 UNITS SC ×2 (03:54→12:13)
[2018-10-16] MEDS: Levothyroxine 150 MCG TAB PO (06:42)
[2018-10-16 07:21] LABS: Abs Immature Grans 0.01 k/cumm (0.0-0.09); Absolute Basophil Count 0.07 k/cumm (0.0-0.2); Absolute Eosinophil Count 0.23 k/cumm (0.0-0.7); Absolute Monocyte Count 0.49 k/cumm (0.11-0.7); Absolute Neutrophil Count 3.25 k/cumm (1.2-6.7); Basophils % 1.1; Eosinophils % 3.7; HCT 39.9 % (40.0-50.0); HGB 13.4 g/dL (13.5-17.5); Immature Grans % 0.2; Lymphocytes % 35.2; Mean Corp. HGB Concentration 33.6 g/dL (32.0-36.0); Mean Corpuscular Hemoglobin 29.6 pg (27.0-33.0); Mean Corpuscular Volume 88.1 fL (80-95); Mean Platelet Volume 9.9 fL (8.0-11.0); Monocytes % 7.8; Platelet Count 224 x1000/uL (130-400); RBC 4.53 m/cumm (4.50-6.00); RBC Distribution Width 13.6 % (11.8-14.1); White Blood Cell Count 6.25 k/cumm (4.4-10.8)
[2018-10-16 07:41] LABS: Anion Gap 5.4 mmol/L (3-11); BUN 12 mg/dL (7-18); CO2 29.6 mmol/L (21.0-32.0); Calcium 8.4 mg/dL (8.5-10.1); Calculated LDL 149 mg/dL; Chloride 101 mmol/L (98-107); Cholesterol 246 mg/dL (50-200); Glucose 252 mg/dL (70-100); HDL Cholesterol 44 mg/dL (40-60); Magnesium 1.7 mg/dL (1.8-2.4); Potassium 3.6 mmol/L (3.5-5.1); Sodium 136 mmol/L (136-145); TSH 10.49 uIU/mL (0.36-3.74); Triglyceride 265 mg/dL (30-150)
[2018-10-16 07:42] LABS: Hemoglobin A1C 13.7 % (4.5-6.2)
[2018-10-16] MEDS: Insulin Aspart 300 UNITS/3 ML PEN SC ×5 (08:19→17:06)
[2018-10-16] MEDS: Insulin Glargine 300 UNITS/3 ML PEN 54 UNITS SC (08:20)
[2018-10-16] MEDS: Mirtazapine 15 MG TAB PO (08:21)
[2018-10-16] MEDS: Isosorbide Mononitrate 60 MG TABCR 120 MG PO (08:21)
[2018-10-16] MEDS: Furosemide 40 MG TAB PO (08:21)
[2018-10-16] MEDS: Multivitamin TAB 2 TAB PO (08:21)
[2018-10-16] MEDS: Magnesium Chloride 64 MG TABCR PO (08:21)
[2018-10-16] MEDS: Metoprolol CR 100 MG TABCR PO (08:21)
[2018-10-16] MEDS: Tamsulosin 0.4 MG CAPCR PO (08:21)
[2018-10-16] MEDS: Omeprazole 20 MG CAPCR 40 MG PO (08:21)
[2018-10-16] MEDS: Cholecalciferol (Vitamin D3) 1,000 UNIT TAB 1000 UNITS PO (08:22)
[2018-10-16] MEDS: Escitalopram 20 MG TAB PO (08:22)
[2018-10-16] MEDS: Ezetimibe 10 MG TAB PO (08:22)
[2018-10-16] MEDS: Clopidogrel 75 MG TAB PO (08:22)
--- NOTE | 2018-10-16 08:31 | W.NEUROCONSU ---
Date of service: 10/16/18 Time of Service: 08:32 Assessment and Plan (1) CVA (cerebral vascular accident): Current visit: Yes Status: Chronic Mr. Hinkle is a 68-year-old, right-handed man who was admitted for a right occipital subacute ischemic infarct manifested by nausea, emesis, and headache; of which the etiology remains unknown. Given the large territory infarct, concern is for a embolus from the heart/arch. He has had an extensive negative work-up thus far. I recommend further work-up including a transesophageal echocardiogram and extended 30-day cardiac monitoring. He states understanding. He will continue Plavix with atorvastatin for secondary stroke prevention at this time. I do not recommend dual antiplatelets given the large infarct size and high risk of bleeding. His biggest risk factor for stroke includes poorly controlled type 2 diabetes which we discussed. I agree with discharge and further outpatient work-up pending PT/OT evaluations. He should follow-up in the neurology clinic in 4 to 6 weeks. DISCLAIMER: This note was created using Brighter[employer] voice recognition software. Qualifiers: CVA mechanism: thrombosis Precerebral and cerebral artery: posterior cerebral artery Laterality of affected vessel: right Qualified Code(s): I63.331 - Cerebral infarction due to thrombosis of right posterior cerebral artery History of Present Illness Chief Complaint: stroke Narrative: Handedness: right. HPI: Mr. Hinkle is a 68-year-old man with a past medical history of hypertension, hyperlipidemia, poorly controlled type 2 diabetes with known peripheral neuropathy, coronary artery disease status post stents and CABG x4 as well as aortic valve replacement, obstructive sleep apnea on CPAP, previous carotid stenosis status post CEA, and sick sinus syndrome status post pacemaker. He presented to the [facility] emergency room on 10/15/2018 with a 1 day history of nausea, vomiting, mild right-sided headache, and just generally not feeling well. He has a history of similar headaches remotely. In the emergency room, his glucose was greater than 500. He had a sodium of 126 (-> 133) and a creatinine of 1.41 (-> 1.28). His troponin was mildly elevated at 0.51 (-> 0.4 ->0.4 -> 0.34). He underwent a CT head which I was able to review and showed a subacute right occipital infarct. He was admitted for further care and evaluation. He is on aspirin 81 mg daily at baseline along with atorvastatin 80mg. He underwent the below work-up including an MRI despite having a pacemaker. His aspirin was switched to 75 mg of Plavix daily. He has had improvement in his symptoms since admission. He has not noticed any visual field defects. He may have slight worsening of his balance. -CT head: subacute right occipital infarct. -MRI brain: subacute right occipital/medial temporal infarct, per my review. -MRA head: unremarkable per rads. per my review, R [employer] appears smaller than left, but is still patent -CUS: mild plaque bilaterally without significant stenosis. -CTA neck: Limited study with no axial images per my review. Radiology reported as unremarkable. -TTE: Poor study due to body habitus. EF 50 to 55%. Wall motion abnormalities could not be excluded based on the poor study. Left atria was normal sized. -Tele: unremarkable. -Labs: A1c 13.7, LDL 149 Consults Requesting physician: Adolfo Peraza Review of Systems Review of Systems All systems reviewed & are unremarkable except as noted in HPI and below PFSH Medical History Aortic valve replaced CAD (coronary artery disease) COPD (chronic obstructive pulmonary disease) CVA (cerebral vascular accident) (Chronic) Diabetic neuropathy DM (diabetes mellitus) HTN (hypertension) Hypothyroidism IVETTE (obstructive sleep apnea) Pacemaker Renal insufficiency Surgical History Coronary Artery Bypass Gaft (CABG) Coronary Stent Pacemaker Replacement of aortic valve Social History Smoking/Tobacco Use Status: Never Alcohol Intake: never Drug use: Never Household members: none current occupation: Lives at [facility]. Disabled since . Do you feel safe at home: Yes Do you feel safe in your relationship?: Yes Visit Medication and Allergies Active Medications Generic Name Dose Route Start Last Admin Trade Name Freq PRN Reason Stop Dose Admin Acetaminophen 0 mg 10/15/18 10:45 10/15/18 14:47 Tylenol PO 650 mg Q4H PRN PRN Administration Al Hydrox/Mg Hydrox/Simethicone 30 ml 10/15/18 10:45 Mylanta Liquid PO Q2H PRN PRN Albuterol/Ipratropium 3 ml 10/15/18 10:45 Duoneb Updraft UPD Q6H PRN PRN Atorvastatin Calcium 80 mg 10/15/18 22:00 10/15/18 21:45 Lipitor PO 80 mg HS BG Administration Budesonide/Formoterol Fumarate 2 puff 10/15/18 20:00 10/15/18 20:10 Symbicort 160/4.5 Mcg Inhaler IH 2 puff BID BG Administration Cholecalciferol 1,000 units 10/16/18 08:30 10/16/18 08:22 Vitamin D PO 1,000 units DAILY BG Administration Clopidogrel Bisulfate 75 mg 10/16/18 08:30 10/16/18 08:22 Plavix PO 75 mg DAILY BG Administration Dextrose 0 gm 10/15/18 10:54 Insta-Glucose PO DIRECTED PRN Dextrose/Water 0 gm 10/15/18 10:54 IVP DIRECTED PRN Dimethicone/Zinc Oxide 0 gm 10/15/18 10:45 Dorota Protect Cream TP PRN PRN Docusate Sodium 100 mg 10/15/18 10:45 Colace PO TID PRN PRN Ezetimibe 10 mg 10/16/18 08:30 10/16/18 08:22 Zetia PO 10 mg QAM BG Administration Escitalopram Oxalate 20 mg 10/16/18 08:30 10/16/18 08:22 Lexapro PO 20 mg QAM BG Administration Furosemide 40 mg 10/16/18 08:30 10/16/18 08:21 Lasix PO 40 mg DAILY BG Administration Gabapentin 300 mg 10/15/18 22:00 10/15/18 21:50 Neurontin PO 300 mg HS BG Administration Heparin Sodium (Porcine) 5,000 units 10/15/18 20:00 10/16/18 03:54 SC 5,000 units Q8H BG Administration Sodium Chloride 1,000 mls @ 75 mls/hr 10/15/18 11:00 10/16/18 02:37 Saline 1000ml Bag IV 75 mls/hr INFUSION BG Administration Insulin Aspart 0 units 10/15/18 12:00 10/16/18 08:19 Novolog Flexpen SC 9 unit 0800,1200,1700 BG Administration Protocol Insulin Aspart 0 units 10/15/18 17:00 10/16/18 08:20 Novolog Flexpen SC 5 units 0800,1200,1700 BG Administration Insulin Glargine 54 units 10/15/18 20:00 10/16/18 08:20 Lantus Solostar SC 54 unit BID BG Administration Iohexol 50 ml 10/15/18 07:00 10/15/18 06:58 Omnipaque 350 PO 11/14/18 23:59 50 ml DIRECTED BG Administration Iohexol 100 ml 10/15/18 08:45 10/15/18 08:43 Omnipaque 350 IJ 11/14/18 23:59 100 ml DIRECTED BG Administration Iohexol 50 ml 10/15/18 09:00 10/15/18 08:45 Omnipaque 350 IJ 11/14/18 23:59 50 ml DIRECTED BG Administration Isosorbide Mononitrate 120 mg 10/16/18 08:30 10/16/18 08:21 Imdur PO 120 mg QAM BG Administration Levothyroxine Sodium 150 mcg 10/16/18 06:00 10/16/18 06:42 Levothroid PO 150 mcg DAILY@0600 BG Administration Magnesium Chloride 64 mg 10/15/18 20:00 10/16/18 08:21 Slow-Mag PO 64 mg BID BG Administration Magnesium Hydroxide 30 ml 10/15/18 10:45 Milk Of Magnesia PO DAILY PRN PRN Meclizine HCl 25 mg 10/15/18 11:22 Antivert PO Q8H PRN PRN Vertigo Metoprolol Succinate 100 mg 10/16/18 08:30 10/16/18 08:21 Toprol Xl PO 100 mg DAILY BG Administration Metoprolol Succinate Confirm 10/15/18 11:21 10/15/18 11:31 Toprol Xl Administered 50 mg Dose Administration 50 mg .ROUTE .DM PRN Metoprolol Tartrate 5 mg 10/15/18 11:18 Lopressor Injection IVP Q6H PRN PRN Mirtazapine 15 mg 10/16/18 08:30 10/16/18 08:21 Remeron PO 15 mg DAILY BG Administration Miscellaneous Medication 473 ml 10/15/18 07:00 10/15/18 06:59 Breeza Tropical Fruit Flavor PO 11/14/18 23:59 473 ml DIRECTED BG Administration Miscellaneous Medication 473 ml 10/15/18 08:45 10/15/18 08:45 Breeza Tropical Fruit Flavor PO 11/14/18 23:59 473 ml DIRECTED BG Administration Mometasone Furoate 1 puff 10/15/18 20:00 10/15/18 20:11 Asmanex 220 Twisthaler IH 1 puff BID BG Administration Multivitamins 2 tab 10/16/18 08:30 10/16/18 08:21 PO 2 tab QAM BG Administration Nitroglycerin 0.4 mg 10/15/18 11:14 Nitrostat SL Q5 MIN PRN X3 PRN Omeprazole 40 mg 10/15/18 20:00 10/16/18 08:21 Prilosec PO 40 mg BID@0730,2000 BG Administration Polyethylene Glycol 17 gm 10/15/18 10:45 Miralax PO DAILY PRN PRN Constipation Ropinirole HCl 2 mg 10/15/18 22:00 10/15/18 21:50 Requip PO 2 mg HS BG Administration Sodium Chloride 0 ml 10/15/18 06:41 Saline Flush 10 Ml Syringe IVP PRN PRN Tamsulosin HCl 0.4 mg 10/16/18 08:30 10/16/18 08:21 Flomax PO 0.4 mg DAILY BG Administration Allergies No Known Allergies Allergy (Unverified 10/15/18 07:33) Exam Narrative Exam Narrative: Physical Exam: Gen: Patient appears older than stated age, NAD Head and face: no facial or cranial abnormalities Neck: Supple, no meningismus, no occipital tenderness CV: RRR, distant heart sounds Resp: CTA B/L Abd: soft, nontender, nondistended Ext: Mild bilateral LE edema. No clubbing or cyanosis. No bony deformity. Neuro Exam: Language: fluency, naming, repetition, and comprehension intact; Mental Status: AAOx3, current events intact, fund of knowledge intact; Speech: no dysarthria Cranial nerves: Funduscopy: not performed CN II: visual fry intact CN III, IV, : extraocular movements intact, no nystagmus, pupils symmetric and reactive to light CN V: face sensation intact to LT and PP CN VII: no facial asymmetry noted CN VIII: hearing intact bilaterally CN IX, X: palate rises symmetrically CN XI: trapezius/SCM 5/5 bilaterally CN XII: protrudes tongue symmetrically Sensory: intact to LT and joint position in all extremities; reduced PP in the LE with absent vibration in the LE; stereognosia and graphesthesia intact; Motor: bulk and tone intact. Fine motor movements intact bilaterally. No pronator drift. Strength 5/5 throughout including the deltoids, biceps, triceps, wrist extensors, hip flexors, knee flexors, knee extensors, ankle flexors, and ankle extensors; except 4+/5 right hip flexor (he states this is old). Reflexes: 2+ at the biceps, triceps, and brachioradialis; absent at the patella and achilles tendons bilaterally; toes neutral bilaterally; Coordination: FTN and HTS intact bilaterally Gait: deferred Results Last Vital Signs Temp 36.6 C 10/16/18 07:25 Pulse 60 10/16/18 07:25 Resp 18 10/16/18 07:25 BP 128/85 10/16/18 07:25 Pulse Ox 96 10/16/18 07:25 Labs : 10/16/18 06:55 10/16/18 06:55 Laboratory Results - last 24 hr 10/15/18 10/15/18 10/15/18 09:55 09:55 14:34 WBC RBC Hgb Hct MCV MCH MCHC RDW Plt Count MPV Immature Gran % Neutrophils % Lymphocytes % Monocytes % Eosinophils % Basophils % Absolute Neutrophils Absolute Lymphocytes Absolute Monocytes Absolute Eosinophils Absolute Basophils Sodium 133 L Potassium Chloride Carbon Dioxide Anion Gap BUN Creatinine Estimated GFR/1.73 m2 Glucose Hemoglobin A1c Calcium Magnesium Creatine Kinase 111 Troponin I 0.40 H* Triglycerides Total Cholesterol LDL Cholesterol, Calc HDL Cholesterol TSH 10/15/18 10/15/18 10/16/18 14:35 18:15 06:55 WBC RBC Hgb Hct MCV MCH MCHC RDW Plt Count MPV Immature Gran % Neutrophils % Lymphocytes % Monocytes % Eosinophils % Basophils % Absolute Neutrophils Absolute Lymphocytes Absolute Monocytes Absolute Eosinophils Absolute Basophils Sodium 136 Potassium 3.6 Chloride 101 Carbon Dioxide 29.6 Anion Gap 5.4 BUN 12 Creatinine 1.20 Estimated GFR/1.73 m2 >= 60.00 Glucose 252 H D Hemoglobin A1c Calcium 8.4 L Magnesium 1.7 L Creatine Kinase Troponin I 0.40 H* 0.34 H* Triglycerides 265 H Total Cholesterol 246 H LDL Cholesterol, Calc 149 HDL Cholesterol 44 TSH 10.49 H 10/16/18 10/16/18 06:55 06:55 WBC 6.25 RBC 4.53 Hgb 13.4 L D Hct 39.9 L MCV 88.1 MCH 29.6 MCHC 33.6 RDW 13.6 Plt Count 224 MPV 9.9 Immature Gran % 0.2 Neutrophils % 52.0 Lymphocytes % 35.2 Monocytes % 7.8 Eosinophils % 3.7 Basophils % 1.1 Absolute Neutrophils 3.25 Absolute Lymphocytes 2.20 Absolute Monocytes 0.49 Absolute Eosinophils 0.23 Absolute Basophils 0.07 Sodium Potassium Chloride Carbon Dioxide Anion Gap BUN Creatinine Estimated GFR/1.73 m2 Glucose Hemoglobin A1c 13.7 H Calcium Magnesium Creatine Kinase Troponin I Triglycerides Total Cholesterol LDL Cholesterol, Calc HDL Cholesterol TSH
--- NOTE | 2018-10-16 09:10 | IN_ITS ---
Date of service: 10/16/18 Time of Service: 08:32 PT Notes Inpatient Physical Therapy Evaluation Date: 10/16/2018 Referring Doctor: Adolfo Peraza MD PT Orders: PT CONSULT: Subacute CVA Precautions: Fall. Standard. Activity as tolerated. Patient Profile/Admitting Diagnosis: Patient is a 68-year-old male who presented to the ED with chief complaints of nausea and vomiting, general body malaise, epigastric pain, and pain in the head that has slowly been worsening. CT of the abdomen and pelvis is negative. CT of the head showed subacute occipital and parietal infarcts. Patient is diagnosed with CVA, type II DM, IVETTE, hypothyroidism, AVR, and CAD.. PMHX: Medical History Aortic valve replaced CAD (coronary artery disease) COPD (chronic obstructive pulmonary disease) Diabetic neuropathy DM (diabetes mellitus) HTN (hypertension) Hypothyroidism IVETTE (obstructive sleep apnea) Pacemaker Renal insufficiency Surgical History Coronary Artery Bypass Gaft (CABG) Coronary Stent Pacemaker Replacement of aortic valve Social History/Home Situation: Patient lives on the second floor of the [facility] alone. He uses a motorized wheelchair for community ambulation although recently he states that he has not been able to use it due to battery issues. He is independent with ambulation from his room to the dining room of the apartment building for all his meals and walks about 70-90 feet each time. Current Functional Limitations: Need for assistive device and physical assistance for all transfer and ambulation task performance due to increased fall risk Equipment Owned/DME: Motorized wheelchair. Hospital bed. SPC. Subjective: Patient is agreeable to a PT consult. He states that his wheelchair is motorized wheelchair has been broken due to a battery issue and he has been having a hard time facilitating replacement. He denies headache on the right frontotemporal and occipital areas and like what he experienced at the ED on admission. He denies nausea, dizziness, chest pain, and low back pain. Objective: General Observation: Patient seen resting on recliner chair. IV pole and right UE. Obese. Mental Status: Alert and oriented x4 Pain: 0/10 ROM: Right Upper Extremity: Shoulder Flexion WFL. Shoulder abduction WFL. Elbow flexion WFL. Wrist flexion WFL. Functional opening and closing of hand WFL. Left Upper Extremity: Shoulder Flexion WFL. Shoulder abduction WFL. Elbow flexion WFL. Wrist flexion WFL. Functional opening and closing of hand WFL. Right Lower Extremity: Hip flexion only allows up to 120 degrees due to abdominal panniculus. Hip abduction WFL. Knee flexion WFL. Ankle dorsiflexion WFL. Ankle plantarflexion WFL. Left Lower Extremity: Hip flexion only allows up to 100 degrees due to abdominal panniculus. Hip abduction WFL. Knee flexion WFL. Ankle dorsiflexion WFL. Ankle plantarflexion WFL. Strength: Right Upper Extremity: Shoulder flexors 4/5. Shoulder abductors 4/5. Elbow flexors 4/5. Elbow extensors 4/5. Instrument Technician strong. Left Upper Extremity: Shoulder flexors 4/5. Shoulder abductors 4/5. Elbow flexors 4/5. Elbow extensors 4/5. Instrument Technician strong. Right Lower Extremity: Hip flexors 4/5. Hip abductors 4/5. Knee flexors 4/5. Knee extensors 4/5. Ankle dorsiflexors 4/5. Ankle plantarflexors 4/5. Left Lower Extremity:Hip flexors 3-/5. Hip abductors 4-/5. Knee flexors 4-/5. Knee extensors 4-/5. Ankle dorsiflexors 4-/5. Ankle plantarflexors 4-/5. Sensation: Intact as to pain and pressure on bilateral lower extremities. Bed Mobility/Transfers: Rolling supervision Supine to sit supervision Sit to supine supervision Sit to stand SBA Stand to sit SBA Bed to chair SBA Chair to bed SBA Gait: Patient was able to tolerate 60 feet x 2 of level surface ambulation using SPC with FWB requiring only CGA assist of this PT with decreased step height observed and gait velocity reduced due to body size and complains of mild lightheadedness. Balance: Static Sitting: Good Dynamic Sitting: Good Static Standing: Good Dynamic Standing: Fair Special Tests: Mobility Limitations Standardized Measure [facility] AM-PAC 6 clicks Basic Mobility Inpatient Short Form: Raw Score: 18 CMS Score: 47% deficit 4 stage balance test: Patient able to assume position 1 where feet are placed together for 10 seconds but was unable to perform positions 2 (semi-tande), position 3 (tandem stance), and position 4 (one-legged stance) signifying high risk for falls. Informed Consent/Education: Patient instructed in purpose of PT consult and plan of care. Assessment: 68-year-old male with diagnosis of CVA, Type II DM, IVETTE, hypothyroidism, AVR, and CAD. Patient presents with clinical signs and symptoms consistent with current/admitting diagnoses that have resulted to mobility limitations, gait instability, generalized weakness, and impairment of motor control as demonstrated by the following impairment level findings: 1. Decreased strength to B LE major muscle groups with a left LE>R LE 2. Impaired standing balance 3. Impaired activity tolerance 4. Limitation of joint range of motion in bilateral hips due to abdominal pa nniculus Impairments are contributing to the following functional limitations: 1. Dependent bed mobility skills 2. Increased dependence with transfers 3. Inability to safely ambulate without assistive device and physical assistance 4. Increase completion time for mobility ADL performance 5. Increased fall risk 6. Inability to negotiate steps alone safely Patient is assessed as a 11656 moderate complexity complexity based on the following: History: 68-year-old male with diagnosis of CVA, type II DM, IVETTE, hypothyroidism, AVR, and CAD Examination: Demonstrable impairment in strength, balance, and range of motion with underlying impairments and functional limitations as documented above Presentation:Evolving Decision Makin moderate complexity Goals: Goals X1 week 1. Supine-Sit independent 2. Sit-Supine independent 3. Sit-Stand independent 4. Stand-Sit independent 5. Bed-Chair independent 6. Chair-Bed independent 7. Independent gait on level surface with use of SPC for at least 200 feet without report of pain nor dyspnea 8. Independent with home exercise program 9. Good static and dynamic standing balance/tolerance Plan of Care/Treatment Plan: 1-2x/day, 7 days/week x 1 week. Plan of care has been reviewed with the [employer] providing the service under Physical Therapy direction. Initiate Physical Therapy intervention for strengthening, bed mobility, transfers, gait, stairs, balance training, use of assistive device. DISCHARGE RECOMMENDATIONS: Patient will benefit from home health PT services in order to progress mobility level using least restrictive assistive ambulatory device/using no device, assess home safety, identify additional equipment needs, and establish a functional maintenance program that will increase ability of patient to remain at home. TREATMENT CODE/TIME: 05072 x 23 minutes beginning at 8:32 AM. Thank you very much for this referral. Melissa Cavazos PT, DPT, CLT [facility]
[2018-10-16] MEDS: Budesonide/Formoterol 160/4.5 6 GM 60 PUFF INH IH (09:19)
[2018-10-16] MEDS: Magnesium Oxide 400 MG TAB 800 MG PO (09:47)
[2018-10-16] MEDS: Potassium Chloride 20 MEQ TABCR 40 MEQ PO (09:47)
--- NOTE | 2018-10-16 11:44 | PHARADMIT ---
Admission Pharmacy Clinical Review SUBACUTE CVA Code Status Full Code Current Weight Wgt-110.7 kg Renally Cleared and Narrow Therapeutic Index Meds CrCl~ 46 mL/min Meds-OK QTc Value / Action Taken QTc-477 (Lasix, Prilosec,Lexapro Flomax, BP Control, Fever BP-90/63 Tmax- 37C Electrolytes reviewed Na-136 K+3.6 Mag-1.7 DVT Prophylaxis Plavix, Heparin-SC Opiate Usage / Scheduled Bowel Regimen Ordered No Yes Plt/SCr for Heparin / Enoxaparin Plts-224 SCR-1.20 INR for Warfarin inr-1.0 H/H stable, WBC/Bands H&H- 13.4/39.9 WBC- 6.25 Antibiotic appropriateness none Cultures and Sensitivities none Surgical ABX d/c within 24 hr na DM control / Insulin Dosing BG-252 [id number]-18.7 Aspart, Lantus Heart Failure (Check EF%) (CITLALY's, B-Block, Diuretics) Lasix, Imdur, Toprol-XL, NTG IV to PO Switch No Home Meds Reviewed Yes Home Meds Not Ordered ASA, Lidoderm, Losartan Comments QVAR HFA- subst.Asmanex, Advair-Subst Symbicort RT researching which he should be on.
[2018-10-16] MEDS: Omnipaque 350 MG/ML 100 ML BTL IJ (11:55)
[2018-10-16] MEDS: Normal Saline Flush 10 ML SYR IVP (11:55)
--- NOTE | 2018-10-16 12:00 | DI.CT_ITS ---
SYMPTOMS/DIAGNOSIS: SUBACUTE CEREBROVASCULAR ACCIDENT CT ANGIOGRAPHY OF THE NECK: CT angiography was performed with multi slice acquisition and multi planar and 3D reconstruction. Comparison is made with neck ultrasound of the previous day. The common carotid arteries are normal in diameter. There is minimal calcific plaque at the common carotid bulbs. The internal and external carotid arteries show normal diameter. The left vertebral artery is dominant. There is some calcification of the distal left vertebral artery but no evidence of stenosis. IMPRESSION: Minimal calcific plaque at the common carotid bulbs. No evidence of stenosis or dissection.
--- NOTE | 2018-10-16 14:10 | CHAPLAIN ---
Sher was up in the chair waiting to be discharged later today. He lives at the [facility] and said his sister calls him twice a day to check in on him. This was his first stroke, he told me, but he feels okay, he said, Just a little lightheaded. He was pleasant and is looking forward to being home.
--- NOTE | 2018-10-16 14:28 | PT.INTREAT ---
Date of service: 10/16/18 Time of Service: 14:28 PT Notes 10/16/18 SUBJECTIVE: Sher stating he is doing good. He utilizes a cane for ambulation in the hallways at the [facility]. He utilizes his motorized wheel chair for longer distances outside when it is working. OBJECTIVE: Seated in chair. Agreeable to PT. TRANSFERS Sit to stand: S Stand to sit: S GAIT Device: SPC Weight bearing: Full Assist: CGA/SBA Distance: 100'+40' Deviation: Minimal use of cane ASSESSMENT: Pt tolerates increase in gait distance well. He minimally uses his cane as he is walking and tends to carry this. He was instructed in gait mechanics with the walker and to utilize his cane at a lower height for better control. PLAN: Continue per POC. Direct time: 15 minutes [id number] Yamini Mayes PTA Clinic location: [facility] [place], [place]
--- NOTE | 2018-10-16 14:29 | W.INDIABCONS ---
Date of service: 10/16/18 Time of Service: 14:30
--- NOTE | 2018-10-16 16:00 | W.PM.DS.N ---
Date of service: 10/16/18 Time of Service: 16:00 DS: Diagnosis Discharge Diagnosis (1) CVA (cerebral vascular accident): Status: Chronic (2) Type 2 diabetes mellitus with complication, with long-term current use of insulin: Status: Acute (3) IVETTE (obstructive sleep apnea): Status: Acute (4) Hypothyroidism: Status: Acute (5) H/O aortic valve replacement: Status: Acute (6) CAD (coronary artery disease): Status: Chronic Discharge Plan Disposition Patient Disposition: HOME Condition: Stable Discharge Details Chief Complaint: Headache Clinical Impression: Headache, Nausea & vomiting Reason For Visit: SUBACUTE CVA Admit Date/Time: 10/15/18 10:45 Admit Provider: Adolfo Peraza Attending Provider: Adolfo Peraza Primary Care Provider: ALEXUS LAN ED Provider: Estee Peterson Hospital Course Hospital Course: Chief Complaint: Headache HPI: 68-year-old man with a history of uncontrolled DM, admitted from [facility] Emergency Department on 10/15 with a diagnosis of subacute CVA. Mr. Hinkle has a past medical history significant for CAD with a prior history of NSTEMI, stenting, and s/p CABG x4 in the past. He also has uncontrolled insulin-dependent diabetes with diabetic neuropathy. Other history includes diastolic CHF, severe s/p TAVR in 2016, hx SSS & Complete Heart Block s/p PPM, PHTN, and severe IVETTE on CPAP therapy. Patient also carries the diagnoses of dyslipidemia, COPD, hypothyroidism, HTN, depression, and anxiety. The patient presented to the ED with complaints of worsening right-sided headache ongoing since the day prior to admission, along with some nausea without any specific abdominal pain or discomfort. He also specifically denied any chest pain, pressure, palpitations, or heartburn symptoms. Routine lab work was unremarkable with the exception of a mildly low sodium at 126, a value which the patient has had in the past. Also with noted mild TIN with a creatinine of 1.4, elevated glucose which appears to be the norm for the patient, and an elevated specific gravity and urinalysis without any evidence of infection. Imaging of abdomen and pelvis with CT scanning was negative, but CT of the head showed evidence of a subacute right sided temporo-occipital infarct. He was admitted for further evaluation and treatment. This morning Mr. Hinkle feels back to his baseline and has no complaints. He has been evaluated by PT and deemed safe for discharge. Neurology evaluation with request for a ANGEL. Telemetry without significant arrhythmias or Afib overnight. Remains afebrile. Hospital Course: (1) CVA (cerebral vascular accident): Subacute CVA in poorly controlled diabetic with multiple underlying comorbidities, including HTN, dyslipidemia, and CAD. Echo, carotid ultrasound, and CT Angio of the neck essentially unremarkable and as reported. MRI/MRA with Subacute infarct in the right Temporal and Occipital Lobes. - Maintained on telemetry without significant arrhythmias. - Changed aspirin to daily clopidogrel, with plans to continue high potency statin and BB therapy. - Losartan was held to allow permissive hypertension overnight, with goals of gently decreasing blood pressure. However, with developed mild hypotension despite this raising the question of medication compliance at home. See below. - Pphysical therapy evaluated patient, but patient does not appear to have any deficits post CVA. Cleared to return home. - Fasting lipids, hemoglobin A1c, and repeat TSH performed as well. - Scheduled for outpatient ANGEL on Sunday morning, as availability was not until then as inpatient as well - discussed with neurology and cardiology who are okay with patient leaving here and returning for testing as an outpatient. (2) Type 2 diabetes mellitus with complication, with long-term current use of insulin: HgA1C grossly elevated at 13.7% (13.2 09/2018), with history of grossly elevated blood sugars on prior ED visit. PH was normal despite initial blood sugar in the 500's. Suspect Insulin non-compliance at home. This will need to be addressed in follow-up with PCP. Patient was maintained on his home regimen, along with sliding scale coverage, with blood sugars in the 200's while hospitalized and on an ADA diet. (3) IVETTE (obstructive sleep apnea): Continue CPAP therapy. (4) Hypothyroidism: TSH grossly elevated again (values of 11.5 and 10.9 last July and November) - Levothyroxine increased, but again suspect potential non-compliance with medications at home. Importance of Rx compliance discussed in detail today. Will need follow-up TSH in 4-6 weeks. (5) H/O aortic valve replacement: s/p TAVR in 2016, with bioprosthetic functioning well on current echocardiogram. (6) CAD (coronary artery disease): Noted history of CAD, with prior history of NSTEMI, with reported previous stents and s/p CABG x4. -Continue high potency statin, beta-blocke, and change daily antiplatelet therapy from aspirin to clopidogrel given evidence of subacute CVA. -Current mild elevation in troponin is in the setting of nausea, self-reported decreased oral intake and dehydration, TIN, and subacute CVA - very unlikely to be ACS. Troponins downtrended and stable from 0.51 --> 0.4, 0.34 last checked. (7) DVT prophylaxis: Was maintained on SC heparin. Home Meds and New Rx's Prescriptions: New levothyroxine 175 mcg Tablet 175 mcg PO DAILY@0600 Qty: 30 RF: 0 clopidogrel [Plavix] 75 mg Tablet 75 mg PO DAILY Qty: 30 RF: 0 Continued mirtazapine 15 mg tablet 15 mg PO DAILY RF: 0 Slow-Mag 71.5 mg tablet,delayed release (DR/EC) 71.5 mg PO BID RF: 0 cholecalciferol (vitamin D3) 1,000 UNIT capsule 1,000 unit PO DAILY RF: 0 fluticasone propion-salmeterol [Advair Diskus] 1 EACH blister with device 1 puff Inhalation BID RF: 0 ProAir RespiClick 90 MCG aerosol powdr breath activated 90 mcg Inhalation Q4H PRN RF: 0 tamsulosin 0.4 MG capsule 0.4 mg PO DAILY RF: 0 Novolog Flexpen U-100 Insulin 100 UNIT/1 ML insulin pen 30 unit Sub-Q TID RF: 0 ezetimibe [Zetia] 10 MG tablet 10 mg PO QAM RF: 0 escitalopram oxalate [Lexapro] 20 MG tablet 20 mg PO QAM RF: 0 isosorbide mononitrate 120 MG tablet extended release 24 hr 120 mg PO QAM RF: 0 furosemide 40 MG tablet 40 mg PO DAILY RF: 0 atorvastatin [Lipitor] 80 MG tablet 80 mg PO HS RF: 0 ropinirole 2 MG tablet 2 mg PO HS RF: 0 nitroglycerin [Nitrostat] 0.4 MG tablet, sublingual 0.4 mg Sublingual PRN PRNRF: 0 multivitamin [Daily Multi-Vitamin] 1 EACH tablet 2 tab PO QAM RF: 0 metoprolol succinate 100 MG tablet extended release 24 hr 100 mg PO DAILY RF: 0 Lantus Solostar U-100 Insulin 100 UNIT/ML insulin pen 54 unit SQ QAM RF: 0 omeprazole 20 MG capsule,delayed release(DR/EC) 40 mg PO BID Qty: 0 RF: 0 meclizine 25 MG tablet 25 mg PO Q8H PRN (Reason: Vertigo) Qty: 20 RF: 0 gabapentin 300 mg Capsule 300 mg PO HS RF: 0 lidocaine [Lidoderm] 5 % Adhesive Patch,Medicated 1 patch topical DIRECTED Qty: 15 RF: 0 Discontinued aspirin [Aspir-81] 81 MG tablet,delayed release (DR/EC) 81 mg PO QAM RF: 0 losartan 25 mg tablet 100 mg PO DAILY RF: 0 levothyroxine 150 MCG tablet 150 mcg PO DAILY RF: 0 Discharge Instructions Additional Instructions: Nothing to eat or drink after midnight on October 17 in preparation for ANGEL on Sunday. ANGEL on SundayOctober 18 please arrive to [facility] Day Surgery Unit at 12 noon. Stand Alone Forms: Nursing Discharge Form Referrals: Shiela Sheffield MD [[facility] STAFF PHYSICIAN] - 12/02/18 12:15 pm ALEXUS LAN NP [Primary Care Provider] - 10/23/18 3:25 am Activity:: No Strenuous Activity Equipment/Supplies:: No Equipment Needed Diet:: Carb Counting Discharge Orders Discharge Orders: Discharge Order (Routine); Ordered 10/16/18 Ordered By: Adolfo Peraza DS: Data Vitals/I&O Vitals and I&O: Vital Signs Temperature 36.6 C 10/16/18 07:25 Temperature Source Tympanic 10/16/18 07:25 Pulse 62 10/16/18 09:57 Pulse Rhythm Regular 10/16/18 08:36 Pulse 75 10/15/18 11:33 Respiratory Rate 18 10/16/18 07:25 Respiratory Effort Non-Labored 10/16/18 08:36 Respiratory Depth Normal 10/16/18 08:36 Respiratory Pattern Normal 10/16/18 08:36 Blood Pressure 92/61 L 10/16/18 09:57 Blood Pressure Mean 98 10/15/18 11:33 Pulse Oximetry 96 10/16/18 07:25 Oxygen Delivery Method Cpap 10/16/18 07:25 Oxygen Flow Rate 0 10/16/18 03:40 Pain Level 0 10/16/18 07:25 Comment 10/16/18 09:57 Intake & Output 10/15/18 10/16/18 10/16/18 23:59 11:59 23:59 Intake Total 100 / 1200 2308.75 / 2788.75 480 / 2788.75 Balance 100 / 950 2308.75 / 2788.75 480 / 2788.75 Weight 110.677 kg Intake: IV 100 / 1200 1898.75 / 1898.75 Oral 410 / 890 480 / 890 Other: Urine Color Yellow Pale Straw Yellow Straw Urine Appearance Clear Urine Odor Normal Normal Comment Limon catheter drained an unmeasured amount, by prior [employer]. VOID X 2 DURING THE NIGHT PER PT Voiding Methods Indwelling Catheter Toilet Completed studies during hospitalization [Text1]: a CT:CT abdomen & pelvis w a CT:CT head wo SYMPTOM/DIAGNOSIS: HEADACHE, NAUSEA, VOMITING, EPIGASTRIC PAIN NONCONTRAST HEAD CT: Comparison is made with 12/13/14. There is an area of low attenuation in the posterior right temporal lobe extending posteriorly into the right occipital lobe. The findings are consistent with a subacute infarct. There is no significant mass effect. There is underlying atrophy, unchanged. The ventricles are normal in size. There is no evidence of hemorrhage. No skull fracture or sinus opacification is seen. IMPRESSION: Area of low attenuation in the right temporo-occipital region could represent a subacute infarct. A mass is less likely. ABDOMEN AND PELVIC CT: Comparison is made with 05/23/17. Images were performed from the lung bases through the ischial tuberosities after IV and a limited amount of oral contrast. The oral contrast is seen in the stomach and proximal duodenum. Proximal aortic stents and pacemaker leads are seen. The lung bases are clear. The liver, gallbladder, spleen, pancreas and adrenals are unremarkable. There are bilateral renal cysts. The aorta is normal in diameter and shows mild calcification. The prostate appears normal in size. The bladder is unremarkable. There is no bowel dilatation or inflammatory change. IMPRESSION: No acute abnormality. Exam(s) a US:US carotid SYMPTOMS/DIAGNOSIS: SUBACUTE CEREBROVASCULAR ACCIDENT CAROTID ULTRASOUND: There is scattered calcific plaque along the common carotid arteries, right greater than left. A small amount of plaque is seen in both common carotid bulbs and at the ICA origins. There is no significant visible stenosis. The velocity measurements are within the normal range, consistent with a mild, less than 50% stenosis. The vertebral arteries show antegrade flow. IMPRESSION: Mild scattered calcific plaque. No significant internal carotid artery stenosis. Exam(s) a MRI:MR angio brain wo a MRI:MR brain wo SYMPTOMS/DIAGNOSIS: SUBACUTE CEREBROVASCULAR ACCIDENT MRI OF THE BRAIN: Comparison is made with head CT performed earlier the same day. T2 sagittal, T1, T2, FLAIR, diffusion and gradient-echo axial sequences were performed. There is an area of high signal on T2 and FLAIR images in the posteroinferior right temporal lobe and extending into the right occipital lobe adjacent to the occipital horn of the lateral ventricle. There is mild mass effect on the temporal horn of the lateral ventricle. There is no midline shift. There is no evidence of hemorrhage. No additional areas of infarction are seen. The vascular flow voids appear grossly intact. There is moderate atrophy, but no significant underlying white matter changes. IMPRESSION: Subacute infarct in the right temporal and occipital lobes. MRA OF THE [place]: A 3D [id number] study was performed. The distal vertebral, basilar and distal carotid arteries, as well as [place] vasculature, show normal diameter. There is no evidence of aneurysm. IMPRESSION: Negative MRA of the [place]. --------- Exam(s) a US:US echocardiogram Date of study: 10/15/2018 Transthoracic Echocardiography M-mode, complete 2D, complete spectral Doppler, and color Doppler *STUDY CONCLUSIONS* Impressions: Compared to the 2017 study, there has been no significant interval change. Summary: 1. Left ventricle: The cavity size was normal. There was mild concentric hypertrophy. Systolic function was at the lower limits of normal. The estimated ejection fraction was 50-55%. Although no diagnostic regional wall motion abnormality was identified, this possibility cannot be completely excluded on the basis of this study. Findings consistent with diastolic dysfunction. Doppler parameters are consistent with high ventricular filling pressure. 2. Aortic valve: History of bioprosthetic valve placement TAVR. There was no significant perivalvular regurgitation. Mean gradient (S): 17.1mm Hg. 3. Right ventricle: The cavity size was normal. Wall thickness was normal. Pacer wire noted in right ventricle. Systolic function was normal. 4. Pulmonary arteries: Pulmonary systolic pressure was increased, in the range of 40mm Hg to 45mm Hg. Exam(s) 10/16/[address]:CT carotid neck CTA SYMPTOMS/DIAGNOSIS: SUBACUTE CEREBROVASCULAR ACCIDENT CT ANGIOGRAPHY OF THE NECK: CT angiography was performed with multi slice acquisition and multi planar and 3D reconstruction. Comparison is made with neck ultrasound of the previous day. The common carotid arteries are normal in diameter. There is minimal calcific plaque at the common carotid bulbs. The internal and external carotid arteries show normal diameter. The left vertebral artery is dominant. There is some calcification of the distal left vertebral artery but no evidence of stenosis. IMPRESSION: Minimal calcific plaque at the common carotid bulbs. No evidence of stenosis or dissection. Labs on day of discharge: Labs from last 24 hours 10/16/18 10/16/18 10/16/18 06:55 06:55 06:55 WBC 6.25 RBC 4.53 Hgb 13.4 L D Hct 39.9 L MCV 88.1 MCH 29.6 MCHC 33.6 RDW 13.6 Plt Count 224 MPV 9.9 Immature Gran % 0.2 Neutrophils % 52.0 Lymphocytes % 35.2 Monocytes % 7.8 Eosinophils % 3.7 Basophils % 1.1 Absolute Neutrophils 3.25 Absolute Lymphocytes 2.20 Absolute Monocytes 0.49 Absolute Eosinophils 0.23 Absolute Basophils 0.07 Sodium 136 Potassium 3.6 Chloride 101 Carbon Dioxide 29.6 Anion Gap 5.4 BUN 12 Creatinine 1.20 Estimated GFR/1.73 m2 >= 60.00 Glucose 252 H D Hemoglobin A1c 13.7 H Calcium 8.4 L Magnesium 1.7 L Troponin I Triglycerides 265 H Total Cholesterol 246 H LDL Cholesterol, Calc 149 HDL Cholesterol 44 TSH 10.49 H 10/15/18 10/15/18 18:15 14:35 WBC RBC Hgb Hct MCV MCH MCHC RDW Plt Count MPV Immature Gran % Neutrophils % Lymphocytes % Monocytes % Eosinophils % Basophils % Absolute Neutrophils Absolute Lymphocytes Absolute Monocytes Absolute Eosinophils Absolute Basophils Sodium Potassium Chloride Carbon Dioxide Anion Gap BUN Creatinine Estimated GFR/1.73 m2 Glucose Hemoglobin A1c Calcium Magnesium Troponin I 0.34 H* 0.40 H* Triglycerides Total Cholesterol LDL Cholesterol, Calc HDL Cholesterol [facility] Medical History Aortic valve replaced CAD (coronary artery disease) COPD (chronic obstructive pulmonary disease) CVA (cerebral vascular accident) (Chronic) Diabetic neuropathy DM (diabetes mellitus) HTN (hypertension) Hypothyroidism IVETTE (obstructive sleep apnea) Pacemaker Renal insufficiency Surgical History Coronary Artery Bypass Gaft (CABG) Coronary Stent Pacemaker Replacement of aortic valve Social History Smoking/Tobacco Use Status: Never Alcohol Intake: never Drug use: Never Do you feel safe at home: Yes Do you feel safe in your relationship?: Yes
--- NOTE | 2018-10-16 19:04 | PDOC.CMIN ---
- If Service Date Differs Date of service: 10/16/18 Time of Service: 19:04 Care Management Initial Assess REASON FOR HOSPITALIZATION:: CVA PAST MEDICAL HISTORY/PAST SURGICAL HISTORY:: Aortic valve replaced. CAD (coronary artery disease). COPD (chronic obstructive pulmonary disease). Diabetic neuropathy. DM (diabetes mellitus). HTN (hypertension). Hypothyroidism. IVETTE (obstructive sleep apnea). Pacemaker. Renal insufficiency. Surgical History . Coronary Artery Bypass Gaft (CABG). Coronary Stent. Pacemaker. Replacement of aortic valve PREVIOUS FUNCTIONAL STATUS/SOCIAL/FAMILY SUPPORTS:: Sher lives at the [facility] he has a sister that lives local. He has two sons that live in [place] and he talks to over the phone. 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 Sher has a scooter that is broken and that is how he gets around town. [facility] [employer] is assisting with finding resources to replace it. CURRENT FUNCTIONAL STATUS:: Sher is able to stand and walk around on his own. He reports that he has a FWW, hospital bed and electric recliner at home. He does have moderate needs with a home health nurse licensed practical. ADVANCE DIRECTIVES:: None on file he reports that he completed with [facility] and a copy is at the primary Has patient been provided with information about the portal?: Yes Did the patient sign up for the portal?: No INSURANCE COVERAGE / FINANCIAL ISSUES:: Medicare, medicaid, finanical assist CURRENT HOME/COMMUNITY SERVICES/EQUIPMENT:: [facility], homemaker through moderate needs, walker, hospital bed, electric recliner PRIMARY CARE PHYSICIAN:: Everett Felipe POTENTIAL DISCHARGE NEEDS:: Follow up with primary care neurology and ANGEL on Sunday as outpatient. PATIENT/FAMILY EDUCATION NEEDS:: Discharged education, limitations and follow plan of care including ask me three. CM communitcated to [facility] caser shoe parts Gisela Roger requested follow up r/t scooter ANTICIPATED BARRIERS TO DISCHARGE:: none TRANSPORTATION:: Via private car with sister PLAN:: Sher is being discharged home today he will follow up with primary care and neurology. Plan for outpatient ANGEL on Sunday arranged at time of discharge. No additional services. CM faxed discharge information to pcp at number provided.
== END 2018-10-16 18:05 | disposition home or self-care (01) | DRG 65 ==
LOC: ER 11:06 → MS 12:25
PROVIDERS: Emergency Medicine; Admitting Provider Internal Medicine; Emergency Provider Student in an Organized Health Care Education/Training Program; PCP Registered Nurse; Visit Provider Internal Medicine
DX: I63.331 Cerebral infarction due to thrombosis of right posterior cerebral artery (principal); I50.32 Chronic diastolic (congestive) heart failure; N17.9 Acute kidney failure, unspecified; E11.65 Type 2 diabetes mellitus with hyperglycemia; E11.42 Type 2 diabetes mellitus with diabetic polyneuropathy; G47.33 Obstructive sleep apnea (adult) (pediatric); J44.9 Chronic obstructive pulmonary disease, unspecified; I11.0 Hypertensive heart disease with heart failure; E78.5 Hyperlipidemia, unspecified; I25.10 Atherosclerotic heart disease of native coronary artery without angina pectoris; Z79.4 Long term (current) use of insulin; E03.9 Hypothyroidism, unspecified; E86.0 Dehydration; Z95.3 Presence of xenogenic heart valve; I25.2 Old myocardial infarction
CPT/HCPCS: 36410; 36415; 36416; 70498; 70544; 80048; 80053; 80061; 82550; 82805; 82962; 83690; 83721; 93005; 93306; 94640; 96361; 96365; 96366; 96367; 96375; 97162; 97530; 99223; 99239; 99285; 70450; 70551; 74177; 81003; 81015; 83036; 83735; 84295; 84443; 84484; 85025; 85610; 85730; 93010; 93880; 94660; J1644; J2405; J3475; J3490; Q9967

== ENCOUNTER → 2018-10-16 09:57 | Outpatient (BNVA) | payer MEDICARE, OTHER, MEDICAID, SELFPAY ==
--- NOTE | 2018-10-17 13:02 | INDS_ITS ---
Date of service: 10/17/18 Time of Service: 13:02 PT Notes Inpatient Physical Therapy Discharge Summary Dates: 10/17/2018 Dates of Service: 10/16/2018 and 10/17/2018 This is a clinical summary of care provided on the duration of dates listed above. No charge was made in the completion of this documentation. Referring Doctor: Adolfo Peraza MD PT Orders: PT CONSULT: Subacute CVA Precautions: Fall. Standard. Activity as tolerated. Patient Profile/Admitting Diagnosis: Patient is a 68-year-old male who presented to the ED with chief complaints of nausea and vomiting, general body malaise, epigastric pain, and pain in the head that has slowly been worsening. CT of the abdomen and pelvis is negative. CT of the head showed subacute occipital and parietal infarcts. Patient is diagnosed with CVA, type II DM, IVETTE, hypothyroidism, AVR, and CAD.. PMHX: Medical History Aortic valve replaced CAD (coronary artery disease) COPD (chronic obstructive pulmonary disease) Diabetic neuropathy DM (diabetes mellitus) HTN (hypertension) Hypothyroidism IVETTE (obstructive sleep apnea) Pacemaker Renal insufficiency Surgical History Coronary Artery Bypass Gaft (CABG) Coronary Stent Pacemaker Replacement of aortic valve Social History/Home Situation: Patient lives on the second floor of the [facility] alone. He uses a motorized wheelchair for community ambulation although recently he states that he has not been able to use it due to battery issues. He is independent with ambulation from his room to the dining room of the apartment building for all his meals and walks about 70-90 feet each time. Current Functional Limitations: Need for assistive device and physical assistance for all transfer and ambulation task performance due to increased fall risk Equipment Owned/DME: Motorized wheelchair. Hospital bed. SPC. Subjective: NT Objective: General Observation: NT Mental Status: NT Pain: NT ROM: Right Upper Extremity: Shoulder Flexion WFL. Shoulder abduction WFL. Elbow flexion WFL. Wrist flexion WFL. Functional opening and closing of hand WFL. Left Upper Extremity: Shoulder Flexion WFL. Shoulder abduction WFL. Elbow flexion WFL. Wrist flexion WFL. Functional opening and closing of hand WFL. Right Lower Extremity: Hip flexion only allows up to 120 degrees due to abdominal panniculus. Hip abduction WFL. Knee flexion WFL. Ankle dorsiflexion W FL. Ankle plantarflexion WFL. Left Lower Extremity: Hip flexion only allows up to 100 degrees due to abdominal panniculus. Hip abduction WFL. Knee flexion WFL. Ankle dorsiflexion WFL. Ankle plantarflexion WFL. Strength: Right Upper Extremity: Shoulder flexors 4/5. Shoulder abductors 4/5. Elbow flexors 4/5. Elbow extensors 4/5. Director Pediatric strong. Left Upper Extremity: Shoulder flexors 4/5. Shoulder abductors 4/5. Elbow flexors 4/5. Elbow extensors 4/5. Director Pediatric strong. Right Lower Extremity: Hip flexors 4/5. Hip abductors 4/5. Knee flexors 4/5. Knee extensors 4/5. Ankle dorsiflexors 4/5. Ankle plantarflexors 4/5. Left Lower Extremity:Hip flexors 3-/5. Hip abductors 4-/5. Knee flexors 4-/5. Knee extensors 4-/5. Ankle dorsiflexors 4-/5. Ankle plantarflexors 4-/5. Sensation: Intact as to pain and pressure on bilateral lower extremities. Bed Mobility/Transfers: Rolling supervision Supine to sit supervision Sit to supine supervision Sit to stand SBA Stand to sit SBA Bed to chair SBA Chair to bed SBA Gait: Patient was able to tolerate 60 feet x 2 of level surface ambulation using SPC with FWB requiring only CGA assist of this PT with decreased step height observed and gait velocity reduced due to body size and complains of mild lightheadedness. Balance: Static Sitting: Good Dynamic Sitting: Good Static Standing: Good Dynamic Standing: Fair Special Tests: Mobility Limitations Standardized Measure [facility] AM-PAC 6 clicks Basic Mobility Inpatient Short Form: Raw Score: 18 CMS Score: 47% deficit 4 stage balance test: Patient able to assume position 1 where feet are placed together for 10 seconds but was unable to perform positions 2 (semi-tande), position 3 (tandem stance), and position 4 (one-legged stance) signifying high risk for falls. Assessment: 68-year-old male with diagnosis of CVA, Type II DM, IVETTE, hypothyroidism, AVR, and CAD. Patient presents with clinical signs and symptoms consistent with current/admitting diagnoses that have resulted to mobility limitations, gait instability, generalized weakness, and impairment of motor control as demonstrated by the following impairment level findings: 1. Decreased strength to B LE major muscle groups with a left LE>R LE 2. Impaired standing balance 3. Impaired activity tolerance 4. Limitation of joint range of motion in bilateral hips due to abdominal panniculus Impairments are contributing to the following functional limitations: 1. Dependent bed mobility skills 2. Increased dependence with transfers 3. Inability to safely ambulate without assistive device and physical assistance 4. Increase completion time for mobility ADL performance 5. Increased fall risk 6. Inability to negotiate steps alone safely Patient is assessed as a [id number] moderate complexity complexity based on the following: History: 68-year-old male with diagnosis of CVA, type II DM, IVETTE, hypothyroidism, AVR, and CAD Examination: Demonstrable impairment in strength, balance, and range of motion with underlying impairments and functional limitations as documented above Presentation:Evolving Decision Makin moderate complexity Goals: Goals X1 week 1. Supine-Sit independent MET 2. Sit-Supine independent MET 3. Sit-Stand independent MET 4. Stand-Sit independent NOT MET 5. Bed-Chair independent NOT MET 6. Chair-Bed independent NOT MET 7. Independent gait on level surface with use of SPC for at least 200 feet without report of pain nor dyspnea NOT MET 8. Independent with home exercise program NOT MET 9. Good static and dynamic standing balance/tolerance NOT MET DISCHARGE RECOMMENDATIONS: Patient will benefit from home health PT services in order to progress mobility level using least restrictive assistive ambulatory device/using no device, assess home safety, identify additional equipment needs, and establish a functional maintenance program that will increase ability of patient to remain at home. TREATMENT CODE/TIME: NC. Thank you very much for this referral. Melissa Cavazos PT, DPT, CLT [facility]
== END ==
PROVIDERS: PCP Registered Nurse; Visit Provider Student in an Organized Health Care Education/Training Program
DX: R69 Illness, unspecified (principal)

== ENCOUNTER 2018-10-18 07:38 | Outpatient (CLI) | payer MEDICARE, OTHER, MEDICAID, SELFPAY ==
--- NOTE | 2018-10-18 12:30 | MERGE_ITS ---
*[facility]* *[facility]* [address] [place] [address] Date of study: 10/18/2018 Transesophageal Echocardiography 2D, spectral Doppler, and color Doppler *STUDY CONCLUSIONS* Impressions: No cardiac source of emboli was identified. Summary: 1. Left ventricle: Systolic function was normal. The estimated ejection fraction was 50-55%. Wall motion was normal; there were no regional wall motion abnormalities. 2. Right ventricle: The cavity size was normal. Deivce wire noted in right ventricle. Systolic function was normal. 3. Left atrium: The atrium was dilated. No evidence of thrombus in the atrial cavity or appendage. 4. Aortic valve: A bioprosthesis was present and functioning normally. 5. Atrial septum: Agitated saline contrast study showed no atrial level shunt, in the baseline state. *PATIENT PRESENTATION* Height: 157.5cm (62in ) S/D Pressure: 152 / 83 Weight: 110.7kg (243.5lb ) BSA: 2.27m^2 PERFORMING Unknown CONSULTING Adolfo Peraza ORDERING Adolfo Peraza REFERRING Adolfo Peraza PERFORMING [facility] APPLIANCE FIXER RT Farr RDCS (R CT) *PROCEDURE DATA* Procedure information: The patient was identified by two identifiers. This study was interpreted by [facility]. Pertinent images and digital data are archived for permanent storage and are available for subsequent review. Study status: Routine. Diagnostic transesophageal echocardiography. 2D, spectral Doppler, and color Doppler. Consent: The risks, benefits, and alternatives to the procedure were explained to the patient and consent was verbally obtained. Barriers to education: No barriers to education identified. Initial setup. The patient was brought to the laboratory in the fasting state. Surface ECG leads, blood pressure measurements, and pulse oximetric signals were monitored. Sedation. Moderate sedation was administered . A Transesophageal echocardiogram was performed. Topical anesthesia was obtained using viscous lidocaine. Images were obtained using an [id number] cardiac ultrasound machine. Image quality was adequate. The saline was administered by RN . A total amount of 10ml of saline was used.The transesophageal probe was removed. Study completion: The patient tolerated the procedure well. There was no blood loss or specimens removed during the procedure. There were no complications. History: PMH: Right occipital subacute ischemic infarct. I63.9 *CARDIAC ANATOMY* Left ventricle: Systolic function was normal. The estimated ejection fraction was 50-55%. Wall motion was normal; there were no regional wall motion abnormalities. Aortic valve: A bioprosthesis was present and functioning normally. Cusp separation was normal. No evidence of vegetation. Doppler: There was no significant regurgitation. Aorta: There was no atheroma. There was no evidence for dissection. Aortic root: The aortic root was not dilated. Ascending aorta: The ascending aorta was normal in size. Aortic arch: The aortic arch was normal in size. Descending aorta: The descending aorta was normal in size. Mitral valve: Structurally normal valve. Leaflet separation was normal. No evidence of vegetation. Doppler: There was mild regurgitation. Left atrium: The atrium was dilated. No evidence of thrombus in the atrial cavity or appendage. The appendage was morphologically a left appendage, multilobulated, and of normal size. Emptying velocity was normal. Atrial septum: Agitated saline contrast study showed no atrial level shunt, in the baseline state. Right ventricle: The cavity size was normal. Deivce wire noted in right ventricle. Systolic function was normal. Pulmonic valve: The pulmonary valve appears to be grossly normal. No evidence of vegetation. Doppler: There was no significant regurgitation. Tricuspid valve: Structurally normal valve. Leaflet separation was normal. No evidence of vegetation. Doppler: There was mild-moderate regurgitation. Right atrium: The atrium was normal in size. Pericardium: There was no pericardial effusion. Baseline ECG: Paced rhythm. I have personally reviewed the images and have reviewed and edited the reported findings. Electronically signed by Gita Wilson 10/18/2018 14:18
== END 2018-10-18 07:58 ==
PROVIDERS: PCP Registered Nurse; Referring Provider Psychiatry & Neurology Neurology; Visit Provider Internal Medicine
DX: I63.9 Cerebral infarction, unspecified (principal); I51.7 Cardiomegaly; Z95.3 Presence of xenogenic heart valve; Z95.0 Presence of cardiac pacemaker
CPT/HCPCS: 93306; 93312; 93320; 93325

== ENCOUNTER 2018-10-18 11:16 | Day surgery (SDC) | payer MEDICARE, OTHER, MEDICAID, SELFPAY ==
[2018-10-18] VITALS (8 sets, daily range): BP systolic 103–162; BP diastolic 51–88; PULSE 67–77; RESP 11–20; TEMP 36–36.5; O2SAT 96–100
[2018-10-18] MEDS: Normal Saline 1,000 ML 20 ML IV (12:50)
--- NOTE | 2018-10-18 13:43 | W.PROCNOTE ---
Date of service: 10/18/18 Time of Service: 13:43 Procedure Note Date of procedure: 10/18/18 Procedure: Transesophageal echo Surgeon/Proceduralist/Physician: Gita Wilson Procedure Diagnosis: CVA Procedure Indications: Thromboembolic source Procedure Description: Outpatient transesophageal echo. Recent stroke. Completing work-up to exclude a thromboembolic etiology. Informed consent obtained. Anesthesia nursing present throughout procedure. Hemodynamically monitored. No contraindications to proceeding. Sedation as per anesthesia. Patient tolerated procedure well. No complications. No obvious thrombo-embolic source identified. Please see MERGE for full details of results.
== END 2018-10-18 15:42 | disposition home or self-care (01) ==
PROVIDERS: PCP Registered Nurse; Visit Provider Internal Medicine Cardiovascular Disease
PROC: (CPT 93312; principal; 2018-10-18 13:00)
DX: I63.9 Cerebral infarction, unspecified (principal)
CPT/HCPCS: 93312; 93306; 93320; 93325; J2250; J2405

== ENCOUNTER 2018-11-13 14:51 | Emergency (ER) | payer MEDICARE, OTHER, MEDICAID, SELFPAY ==
[2018-11-13] VITALS (38 sets, daily range): BP systolic 100–120; BP diastolic 50–65; PULSE 63–75; RESP 4–26; TEMP 36.9; O2SAT 91–99
--- NOTE | 2018-11-13 15:03 | ED.GENADUL_ITS ---
Discharge Plan Disposition Patient Disposition: HOME Condition: Stable Discharge Details Chief Complaint: SOB Clinical Impression: Shortness of breath Primary Care Provider: ALEXUS LAN ED Provider: Drake Vasquez Home Meds and New Rx's Prescriptions: Continued mirtazapine 15 mg tablet 15 mg PO DAILY RF: 0 cholecalciferol (vitamin D3) 1,000 UNIT capsule 1,000 unit PO DAILY RF: 0 fluticasone propion-salmeterol [Advair Diskus] 1 EACH blister with device 1 puff Inhalation BID RF: 0 ProAir RespiClick 90 MCG aerosol powdr breath activated 90 mcg Inhalation Q4H PRN RF: 0 tamsulosin 0.4 MG capsule 0.4 mg PO DAILY RF: 0 Novolog Flexpen U-100 Insulin 100 UNIT/1 ML insulin pen 30 unit Sub-Q TID RF: 0 ezetimibe [Zetia] 10 MG tablet 10 mg PO QAM RF: 0 escitalopram oxalate [Lexapro] 20 MG tablet 20 mg PO QAM RF: 0 isosorbide mononitrate 120 MG tablet extended release 24 hr 120 mg PO QAM RF: 0 furosemide 40 MG tablet 40 mg PO DAILY RF: 0 atorvastatin [Lipitor] 80 MG tablet 80 mg PO HS RF: 0 ropinirole 2 MG tablet 2 mg PO HS RF: 0 nitroglycerin [Nitrostat] 0.4 MG tablet, sublingual 0.4 mg Sublingual PRN PRNRF: 0 multivitamin [Daily Multi-Vitamin] 1 EACH tablet 2 tab PO QAM RF: 0 metoprolol succinate 100 MG tablet extended release 24 hr 100 mg PO DAILY RF: 0 Lantus Solostar U-100 Insulin 100 UNIT/ML insulin pen 54 unit SQ QAM RF: 0 omeprazole 20 MG capsule,delayed release(DR/EC) 40 mg PO BID Qty: 0 RF: 0 meclizine 25 MG tablet 25 mg PO Q8H PRN (Reason: Vertigo) Qty: 20 RF: 0 gabapentin 300 mg Capsule 300 mg PO HS RF: 0 levothyroxine 175 mcg Tablet 175 mcg PO DAILY@0600 Qty: 30 RF: 0 clopidogrel [Plavix] 75 mg Tablet 75 mg PO DAILY Qty: 30 RF: 0 metformin 500 mg Tablet 500 mg PO BID RF: 0 Slow-Mag 71.5 mg Tablet,Delayed Release (Dr/Ec) 71.5 mg PO DAILY RF: 0 Discharge Instructions Instructions: Dyspnea (ED) Additional Instructions: follow up with your primary care provider within 1 week especially if symptoms continue if you feel you are becoming more ill, have severe worsening pain or trouble breathing return to the emergency department Medical Decision Making 68 yo male with hx of copd, cad, recent cva earlier last month, who comes in with shortness of breath since 9 am and intermittent chest aches for the past few days that last a few days. Denies fevers, has had a dry cough, no recent falls. He is noted to have mild wheezing at the apices and bases on lung exam bilteral. no jvd and no crackles so doubt acute chf and had transesophageal echo done within the past month that showed ef of 50%. chest pain sounds atypical for acs and ekg unchanged, will send troponin and obtain lab work and chest xray. Has no hypoxia or evidence of dvt so doubt pe at this time. xray unremarkable, labs show troponin just outside undetectabale range and is down from over 0.5 earlier in October. Remains pain free and feels well, will repeat troponin and ecg. pt remains stable second ecg unchanged and 2nd troponin negative, no chest pain here so feel he can be d/c'd with f/u with pcp. He states he has a frontal headache similar to prior migraine headaches. he states normally they don't get better with meds and improve on their own so declined anything other than ibuprofen. States pain is not worse of his life and slowly came on so doubt sah and no falls so doubt ich. 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 Differential Diagnosis copd, pna, chf Medical Records Medical records reviewed: Yes I reviewed the patient's medical records. Imaging Data Radiologic Study: Attestation: I personally reviewed and interpreted this imaging study as follows: Imaging: X-Ray Radiologist's impression: no acute findings Lab Data Lab results reviewed: Yes I reviewed the patient's lab results. ECG Data Attestation: I personally reviewed and interpreted this ECG (s) as follows: Prior ECG tracings: available for review Interpretation: sinus rhythm, rate of 70, pr 180, no acute st t wave ischemic findings 2nd ekg shows sinusrhythm, rate of 70, pr 178, no acute changes from first ekg HPI General Mode of arrival: ambulatory . Date/Time Provider Initiated Documentation: 11/13/18 14:52 . Limitations to Documentation: no limitations . Information obtained by: patient . History of Present Illness 68 year old M presents to the emergency department with the chief complaint of shortness of breath, described as moderate, Patient started experiencing this hour(s) (6) and it has been intermittent. No relieving factors improve symptom(s), No exacerbating factors reported . Patient notes no other symptoms.. Patient did receive the following treatments prior to arrival, none Related Data Home Medications Medication Instructions Recorded Confirmed atorvastatin [Lipitor] 80 mg PO HS 01/05/14 11/13/18 escitalopram oxalate [Lexapro] 20 mg PO QAM 01/05/14 11/13/18 ezetimibe [Zetia] 10 mg PO QAM 01/05/14 11/13/18 furosemide 40 mg PO DAILY 01/05/14 11/13/18 isosorbide mononitrate 120 mg PO QAM 01/05/14 11/13/18 multivitamin [Daily Multi-Vitamin] 2 tab PO QAM 01/05/14 11/13/18 nitroglycerin [Nitrostat] 0.4 mg SUBLINGUAL PRN PRN 01/05/14 11/13/18 ropinirole 2 mg PO HS 01/05/14 11/13/18 cholecalciferol (vitamin D3) 1,000 unit PO DAILY 04/21/15 11/13/18 meclizine 25 mg PO Q8H PRN #20 tab 11/08/16 11/13/18 Lantus Solostar U-100 Insulin 54 unit SQ QAM 04/02/17 11/13/18 metoprolol succinate 100 mg PO DAILY 04/02/17 11/13/18 omeprazole 40 mg PO BID #0 tab-cap 04/02/17 11/13/18 ProAir RespiClick 90 mcg INHALATION Q4H PRN 07/10/17 11/13/18 fluticasone propion-salmeterol 1 puff INHALATION BID disk 07/10/17 11/13/18 [Advair Diskus] Novolog Flexpen U-100 Insulin 30 unit SUB-Q TID 07/20/17 11/13/18 tamsulosin 0.4 mg PO DAILY tab-cap 07/20/17 11/13/18 mirtazapine 15 mg tablet 15 mg PO DAILY 07/23/18 11/13/18 gabapentin 300 mg PO HS 10/04/18 11/13/18 clopidogrel [Plavix] 75 mg PO DAILY #30 tab 10/16/18 11/13/18 levothyroxine 175 mcg PO DAILY@0600 #30 tab 10/16/18 11/13/18 Slow-Mag 71.5 mg PO DAILY 10/18/18 11/13/18 metformin 500 mg PO BID 10/18/18 11/13/18 Previous Rx's Medication Instructions Recorded meclizine 25 mg PO Q8H PRN #20 tab 11/08/16 omeprazole 40 mg PO BID #0 tab-cap 04/02/17 clopidogrel [Plavix] 75 mg PO DAILY #30 tab 10/16/18 levothyroxine 175 mcg PO DAILY@0600 #30 tab 10/16/18 Allergies Allergy/AdvReac Type Severity Reaction Status Date / Time No Known Allergies Allergy Unverified 11/13/18 15:03 General Stated Complaint: SOB DAYLIN: 2 Review of Systems Review of Systems All systems reviewed & are unremarkable except as noted in HPI and below Constitutional Denies chills, Denies fever(s) and Denies weakness Respiratory Denies cough Gastrointestinal Denies abdominal pain, Denies nausea and Denies vomiting Musculoskeletal Denies joint swelling Neurologic Denies weakness PFSH Family History (Updated 10/17/18 @ 15:54 by Yenny Gibbons RN) Other Cancer Heart disease Social History Smoking/Tobacco Use Status: Never Alcohol Intake: former Drug use: Never Substance use type: does not use Details: Pt reports no alcohol since his heart attack 1995 Household members: none current occupation: Lives at [employer]. Disabled since . Do you feel safe at home: Yes Additional Social history: lives alone, area on [place] comes in to assiste pt. Exam Const General: no acute distress Orientation: alert HENMT Head: normal to inspection Ears: external ears normal General nose exam: external nose normal Mouth: moist mucous membranes Eyes General: appearance normal, both eyes and all related structures Neck Neck: normal visual inspection Resp Effort & Inspection: normal respiratory effort and able to speak in complete sentences Cardio Rate: regular rate Skin General skin exam: no rashes or lesions noted Neuro General: alert and oriented x3 Extrem General: normal to inspection Psych Mental Status: mental status grossly normal Course Vital Signs Temperature 36.9 C 11/13/18 14:58 Pulse 70 11/13/18 14:58 Respiratory Rate 14 11/13/18 14:58 Blood Pressure 113/65 11/13/18 14:58 Pulse Oximetry 99 11/13/18 14:58 Temperature 36.9 C 11/13/18 14:58 Temperature Source Temporal Artery Scan 11/13/18 14:58 Pulse 70 11/13/18 14:58 Respiratory Rate 14 11/13/18 14:58 Blood Pressure 113/65 11/13/18 14:58 Blood Pressure Position Supine 11/13/18 14:58 Pulse Oximetry 99 11/13/18 14:58 Oxygen Delivery Method Room Air 11/13/18 14:58 Oxygen Flow Rate 0 11/13/18 14:58
--- NOTE | 2018-11-13 15:03 | DI.RAD_ITS ---
SYMPTOMS/DIAGNOSIS: SHORTNESS OF BREATH PA AND LATERAL CHEST: Comparison is made with July,. The heart is enlarged, unchanged. A pacemaker, mediastinal clips and coronary artery stents, as well as proximal aortic prosthesis, are again noted. The lungs appear clear. No infiltrate, effusion or pulmonary edema is seen. IMPRESSION: No acute abnormality.
[2018-11-13 15:13] LABS: Abs Immature Grans 0.02 k/cumm (0.0-0.09); Absolute Basophil Count 0.07 k/cumm (0.0-0.2); Absolute Eosinophil Count 0.16 k/cumm (0.0-0.7); Absolute Lymphocyte Count 2.41 k/cumm (1.2-3.4); Absolute Monocyte Count 0.44 k/cumm (0.11-0.7); Absolute Neutrophil Count 4.13 k/cumm (1.2-6.7); Eosinophils % 2.2; HCT 40.8 % (40.0-50.0); HGB 13.5 g/dL (13.5-17.5); Immature Grans % 0.3; Lymphocytes % 33.3; Mean Corp. HGB Concentration 33.1 g/dL (32.0-36.0); Mean Corpuscular Hemoglobin 29.3 pg (27.0-33.0); Mean Corpuscular Volume 88.7 fL (80-95); Mean Platelet Volume 9.5 fL (8.0-11.0); Monocytes % 6.1; Neutrophils % 57.1; Platelet Count 254 x1000/uL (130-400); RBC Distribution Width 13.9 % (11.8-14.1); White Blood Cell Count 7.23 k/cumm (4.4-10.8)
[2018-11-13] MEDS: Albuterol/Ipratropium 3 ML UPD VIAL UPD (15:13)
[2018-11-13] MEDS: methylPREDNISolone SUCC 125 MG VIAL IVP (15:13)
[2018-11-13 15:18] LABS: BE (Venous) 2.8 mmol/L (-3-3); HCO3 (Venous) 29 mmol/L (22-28); O2 Sat (Venous) 45 % (70-80); TCO2 (Venous) 27 mmol/L (22-29); pCO2 (Venous) 55 mm/Hg (34-47); pH (Venous) 7.32 (7.32-7.43); pO2 (Venous) 26 mm/Hg (28-44)
[2018-11-13 15:26] LABS: PTT Activated 24.1 sec (21.0-31.4); Prothrombin Time 9.8 sec (9.3-11.0)
[2018-11-13 15:42] LABS: ALT 25 U/L (16-63); AST 19 U/L (15-37); Albumin 2.7 g/dL (3.4-5.0); Alkaline Phosphatase 80 U/L (46-116); Anion Gap 7.8 mmol/L (3-11); BUN 23 mg/dL (7-18); Bilirubin, Total 0.8 mg/dL (0.2-1.0); CO2 28.2 mmol/L (21.0-32.0); CREATININE 1.29 mg/dL (0.70-1.30); Calcium 8.6 mg/dL (8.5-10.1); Chloride 104 mmol/L (98-107); Estimated GFR 55.72 (mL/min/1.73m2); Glucose 83 mg/dL (70-100); Magnesium 1.3 mg/dL (1.8-2.4); NT-proBNP 1736 pg/mL; Sodium 140 mmol/L (136-145)
[2018-11-13 16:04] LABS: Troponin I 0.07 ng/mL (0.00-0.06)
[2018-11-13] MEDS: Ibuprofen 600 MG TAB (17:43)
[2018-11-13 17:58] LABS: Troponin I 0.06 ng/mL (0.00-0.06)
--- NOTE | 2018-11-13 18:20 | NUR.NOTE ---
Nursing Note: pt assisted to wheelchair and assisted in to sisters car.
== END 2018-11-13 18:18 | disposition home or self-care (01) ==
PROVIDERS: Emergency Provider Emergency Medicine; PCP Registered Nurse
DX: R06.02 Shortness of breath (principal); R51 Headache; R07.89 Other chest pain; J44.9 Chronic obstructive pulmonary disease, unspecified; I25.10 Atherosclerotic heart disease of native coronary artery without angina pectoris; I12.9 Hypertensive chronic kidney disease with stage 1 through stage 4 chronic kidney disease, or unspecified chronic kidney disease; N18.9 Chronic kidney disease, unspecified; E11.22 Type 2 diabetes mellitus with diabetic chronic kidney disease; Z79.4 Long term (current) use of insulin
CPT/HCPCS: 36415; 80053; 82805; 93005; 94640; 96374; 99285; 71046; 83735; 83880; 84484; 85025; 85610; 85730; 93010; J2930; J3490; J7620

== ENCOUNTER 2018-11-15 03:53 | Outpatient (CLI) | payer MEDICARE, OTHER, MEDICAID, SELFPAY ==
--- NOTE | 2018-12-17 12:07 | CER_ITS ---
Cardiac Event Recorder Cardiac Event Note: The study is a 30 day MCT monitor ordered for history of stroke. -There were no events of atrial fibrillation recorded. -Sinus rhythm with an average heart rate of 70 bpm (min 58 - max 117). -There were rare (less than 1%) isolated and paired atrial premature complexes. -There were rare (less than 1%) isolated ventricular premature complexes. There were no runs of ventricular tachycardia. -All patient triggered events were associated with sinus rhythm, or an isolated atrial/ventricular premature complex -There were no pauses greater than 3 seconds CC: Dictated by: DAMEON IVY MD Dictated:: [id number] <Electronically signed by Dameon Ivy M.D.> 12/17/18
== END 2018-11-15 04:13 ==
PROVIDERS: PCP Registered Nurse; Visit Provider Registered Nurse
DX: I69.331 Monoplegia of upper limb following cerebral infarction affecting right dominant side (principal); I49.1 Atrial premature depolarization; I49.3 Ventricular premature depolarization
CPT/HCPCS: 93270

== ENCOUNTER 2018-12-04 18:09 | Outpatient (REF) | payer MEDICARE, OTHER, MEDICAID, SELFPAY ==
[2018-12-04 22:33] LABS: COMMENT (LAB VIEW ONLY) 95.15 mg/dL
== END 2018-12-04 18:29 ==
LOC: NCHCN 18:09
PROVIDERS: PCP Registered Nurse; Visit Provider Registered Nurse
DX: E11.9 Type 2 diabetes mellitus without complications (principal)
CPT/HCPCS: 82043; 82570

== ENCOUNTER 2018-12-15 19:03 | Emergency (ER) | payer MEDICARE, OTHER, MEDICAID, SELFPAY ==
[2018-12-15 19:10] VITALS: BP 171/93; PULSE 85; RESP 15; TEMP 36.5; O2SAT 99
[2018-12-15 19:13] VITALS: RESP 18
--- NOTE | 2018-12-15 19:30 | NUR.NOTE ---
Nursing Note: Reports several hours of sharp midsternal pain with associated SOB. pain radiates to back. denies n/v. #18 RAC, labs drawn. SR on monitor. RA sat 98%, placed on 2L NC for comfort, sats 99% Reports 8/10 pain.
[2018-12-15 19:37] VITALS: O2SAT 99
[2018-12-15 19:53] LABS: Abs Immature Grans 0.02 k/cumm (0.0-0.09); Absolute Basophil Count 0.07 k/cumm (0.0-0.2); Absolute Eosinophil Count 0.15 k/cumm (0.0-0.7); Absolute Monocyte Count 0.46 k/cumm (0.11-0.7); Absolute Neutrophil Count 3.45 k/cumm (1.2-6.7); Basophils % 1.1; Eosinophils % 2.4; HCT 39.2 % (40.0-50.0); HGB 13.1 g/dL (13.5-17.5); Immature Grans % 0.3; Lymphocytes % 33.6; Mean Corp. HGB Concentration 33.4 g/dL (32.0-36.0); Mean Corpuscular Hemoglobin 29.4 pg (27.0-33.0); Mean Corpuscular Volume 87.9 fL (80-95); Mean Platelet Volume 10.2 fL (8.0-11.0); Monocytes % 7.4; Neutrophils % 55.2; Platelet Count 204 x1000/uL (130-400); RBC 4.46 m/cumm (4.50-6.00); White Blood Cell Count 6.25 k/cumm (4.4-10.8)
[2018-12-15 20:02] LABS: ALT 17 U/L (16-63); AST 16 U/L (15-37); Albumin 2.7 g/dL (3.4-5.0); Alkaline Phosphatase 75 U/L (46-116); Anion Gap 6.9 mmol/L (3-11); BUN 21 mg/dL (7-18); Bilirubin, Total 0.9 mg/dL (0.2-1.0); CO2 31.1 mmol/L (21.0-32.0); CREATININE 1.35 mg/dL (0.70-1.30); Calcium 8.8 mg/dL (8.5-10.1); Chloride 99 mmol/L (98-107); Estimated GFR 52.88 (mL/min/1.73m2); Glucose 477 mg/dL (70-100); NT-proBNP 1764 pg/mL; Potassium 3.9 mmol/L (3.5-5.1); Sodium 137 mmol/L (136-145); Total Protein 6.7 g/dL (6.4-8.2)
[2018-12-15 20:08] LABS: Troponin I < 0.05 ng/mL (0.00-0.06)
--- NOTE | 2018-12-15 20:16 | ED.GENADUL_ITS ---
Discharge Plan Disposition Patient Disposition: HOME Condition: Improving Discharge Details Chief Complaint: Chest Pain Clinical Impression: Atypical chest pain Primary Care Provider: ALEXUS LAN ED Provider: Mounika Persaud Home Meds and New Rx's Prescriptions: Continued mirtazapine 15 mg tablet 15 mg PO DAILY RF: 0 cholecalciferol (vitamin D3) 1,000 UNIT capsule 1,000 unit PO DAILY RF: 0 fluticasone propion-salmeterol [Advair Diskus] 1 EACH blister with device 1 puff Inhalation BID RF: 0 ProAir RespiClick 90 MCG aerosol powdr breath activated 90 mcg Inhalation Q4H PRN RF: 0 tamsulosin 0.4 MG capsule 0.4 mg PO DAILY RF: 0 Novolog Flexpen U-100 Insulin 100 UNIT/1 ML insulin pen See Rx Instructions .ROUTE .COMPLEX RF: 0 ezetimibe [Zetia] 10 MG tablet 10 mg PO QAM RF: 0 escitalopram oxalate [Lexapro] 20 MG tablet 20 mg PO QAM RF: 0 isosorbide mononitrate 120 MG tablet extended release 24 hr 120 mg PO QAM RF: 0 furosemide 40 MG tablet 40 mg PO DAILY RF: 0 atorvastatin [Lipitor] 80 MG tablet 80 mg PO HS RF: 0 ropinirole 2 MG tablet 2 mg PO HS RF: 0 nitroglycerin [Nitrostat] 0.4 MG tablet, sublingual 0.4 mg Sublingual PRN PRNRF: 0 multivitamin [Daily Multi-Vitamin] 1 EACH tablet 2 tab PO QAM RF: 0 metoprolol succinate 100 MG tablet extended release 24 hr 100 mg PO DAILY RF: 0 Lantus Solostar U-100 Insulin 100 UNIT/ML insulin pen 42 unit SQ QAM RF: 0 omeprazole 20 MG capsule,delayed release(DR/EC) 40 mg PO BID Qty: 0 RF: 0 meclizine 25 MG tablet 25 mg PO Q8H PRN (Reason: Vertigo) Qty: 20 RF: 0 gabapentin 300 mg Capsule 300 mg PO HS RF: 0 levothyroxine 175 mcg Tablet 175 mcg PO DAILY@0600 Qty: 30 RF: 0 clopidogrel [Plavix] 75 mg Tablet 75 mg PO DAILY Qty: 30 RF: 0 metformin 500 mg Tablet 500 mg PO BID RF: 0 Slow-Mag 71.5 mg Tablet,Delayed Release (Dr/Ec) 71.5 mg PO DAILY RF: 0 Discharge Instructions Instructions: Chest Pain (ED) Additional Instructions: Take tylenol as needed for pain and get plenty of rest. Follow up with your primary care doctor next week for re-evaluation. Return immediately to the emergency department with any worsening or new concerning symptoms. Discharge Data Discharge Date/Time-TO BE ENTERED AT DEPARTURE: 12/16/18 00:20 Discharge Physician: Mounika Persaud Medical Decision Making <Kj Peterson MD - Last Filed: 01/07/19 02:10> 20:21 --68-year-old male with multiple medical problems including history of coronary artery disease status post stent, aortic valve replacement, COPD, recent CVA, here with pleuritic chest pain over the past few hours. Patient is not tachycardic, but is on metoprolol. He is hypertensive. Patient saturating well in no respiratory distress. ECG was reviewed and interpreted by me: Sinus rhythm, 84 bpm, normal axis, right bundle branch block with left anterior fascicular block. ECG without significant change from prior 11/13/2018. Given pleuritic nature of chest pain, I am concerned about potential pulmonary embolism. Plan to obtain CT of the chest to assess for pulmonary embolism. Consider ACS given risk factors. ECG nondiagnostic. Will check troponin. Plan to reassess. --Initial labs reviewed. Initial troponin negative. Initial troponin is mildly elevated but at baseline compared to prior. Patient does have elevated glucose with no anion gap. Creatinine is 1.35 which is his baseline. Will give insulin 10U regular for hyperglycemia. <Mounika Persaud DO - Last Filed: 12/16/18 07:15> 1999 -- Please see Dr. Peterson's note for initial presentation and course. 68-year-old male with a history of COPD, CAD, depression, hypertension, diabetes, hypothyroidism, and obesity with history of CABG and coronary stent placement, aortic valve replacement and pacemaker presented with several hours of sharp chest pain radiating to his back. Case endorsed to follow-up on CT imaging and with plan for repeat troponin and EKG -- Overall presentation atypical for acs and 1st troponin negative with no ischemic changes on ekg but given patient's age and risk factors will discuss final disposition. 2300 --CT chest negative for PE. Second troponin negative. Repeat EKG unchanged. Patient is pain-free after pain meds given here and requesting to go home. Considering patient's age and risk factors, he was offered admission for further evaluation but declined. The risks of and disability due to a cardiac etiology explained to patient and he fully understands. He demonstrates capacity to make decisions. He ambulated around the emergency department in no acute distress. Repeat glucose 377. He was advised to follow-up with his primary care doctor this week for reevaluation and to return here at any time if worse. Medical Records Medical records reviewed: Yes I reviewed the patient's medical records. Imaging Data Radiologic Study: Radiologist's impression: CT Angiography Chest With Contrast Exam date and time: 12/15/2018 8:35 PM Clinical history: 68 years old, male; Other: Pleuritic chest pain, central left chest pain; Prior surgery; Surgery date: 6+ months; Surgery type: Pace maker 3 years ago TECHNIQUE: Imaging protocol: Computed tomographic angiography of the chest with intravenous contrast. 3D rendering: MIP reconstructed images were created and reviewed. Radiation optimization: All CT scans at this facility use at least one of these dose optimization techniques: automated exposure control; mA and/or kV adjustment per patient size (includes targeted exams where dose is matched to clinical indication); or iterative reconstruction. Contrast material: OMNIPAQUE 350; Contrast volume: 90 ml; Contrast route: IV RAC; COMPARISON: CR XR CHEST 2V PA LATERAL 11/13/2018 3:37 PM FINDINGS: Tubes, catheters and devices: Transvenous pacemaker. Generator in left upper chest, one lead terminating in right atrium and second lead in right ventricular apex. Pulmonary arteries: Dependent pulmonary vascular prominence. No pulmonary artery filling defects to segmental level. Evaluation more distally is limited. Aorta: No aortic aneurysm or dissection. Lungs: Unremarkable. No consolidation. No masses. Pleural space: Small bilateral pleural effusions. Heart: Status post median sternotomy for coronary artery bypass grafting. Status post TAVR. Cardiomegaly. Liver: There is diffuse decrease in hepatic parenchymal density, consistent with mild fatty infiltration. Lymph nodes: Unremarkable. No enlarged lymph nodes. Bones/joints: Unremarkable. No acute fracture. The spine demonstrates moderate degenerative changes at multiple levels. Soft tissues: Unremarkable. IMPRESSION: 1. No pulmonary embolism demonstrated to segmental level. Evaluation more distally occluded. 2. Pulmonary vascular congestion. 3. Cardiomegaly. 4. Hepatic steatosis. 5. Pleural effusions. Lab Data Lab results reviewed: Yes I reviewed the patient's lab results. ECG Data Attestation: I personally reviewed and interpreted this ECG (s) as follows: Interpretation: 2252 --rate of 70, sinus, right bundle branch block. Left anterior fascicular block. No acute ST elevation or depression. No acute change from previous. HPI <Kj Peterson MD - Last Filed: 01/07/19 02:10> General Mode of arrival: ambulatory . Date/Time Provider Initiated Documentation: 12/15/18 19:22 . Limitations to Documentation: no limitations . Information obtained by: patient . HPI Narrative: 68-year-old male with multiple medical problems including history of coronary artery disease status post stent, COPD, diabetes, hypertension, aortic valve replacement, pacemaker, presents with chief complaint of chest pain. Patient notes that for the past few hours he has had moderate to severe, currently rated 8 out of 10 chest pain. Pain is localized to his central and left anterior chest. Pain is worse with deep inspiration. He has no associated shortness of breath. Patient notes chronic leg pain. No calf pain. Related Data Home Medications Medication Instructions Recorded Confirmed atorvastatin [Lipitor] 80 mg PO HS 01/05/14 12/27/18 escitalopram oxalate [Lexapro] 20 mg PO QAM 01/05/14 12/27/18 ezetimibe [Zetia] 10 mg PO QAM 01/05/14 12/27/18 furosemide 40 mg PO DAILY 01/05/14 12/27/18 isosorbide mononitrate 120 mg PO QAM 01/05/14 12/27/18 multivitamin [Daily Multi-Vitamin] 2 tab PO QAM 01/05/14 12/27/18 nitroglycerin [Nitrostat] 0.4 mg SUBLINGUAL PRN PRN 01/05/14 12/27/18 ropinirole 2 mg PO HS 01/05/14 12/27/18 cholecalciferol (vitamin D3) 1,000 unit PO DAILY 04/21/15 12/27/18 meclizine 25 mg PO Q8H PRN #20 tab 11/08/16 12/27/18 Lantus Solostar U-100 Insulin 42 unit SQ QAM 04/02/17 12/27/18 metoprolol succinate 100 mg PO DAILY 04/02/17 12/27/18 omeprazole 40 mg PO BID #0 tab-cap 04/02/17 12/27/18 ProAir RespiClick 90 mcg INHALATION Q4H PRN 07/10/17 12/27/18 fluticasone propion-salmeterol 1 puff INHALATION BID disk 07/10/17 12/27/18 [Advair Diskus] Novolog Flexpen U-100 Insulin See Rx Instructions .ROUTE .COMPLEX 07/20/17 12/27/18 tamsulosin 0.4 mg PO DAILY tab-cap 07/20/17 12/27/18 mirtazapine 15 mg tablet 15 mg PO DAILY 07/23/18 12/27/18 gabapentin 300 mg PO HS 10/04/18 12/27/18 clopidogrel [Plavix] 75 mg PO DAILY #30 tab 10/16/18 12/27/18 levothyroxine 175 mcg PO DAILY@0600 #30 tab 10/16/18 12/27/18 Slow-Mag 71.5 mg PO DAILY 10/18/18 12/27/18 metformin 500 mg PO BID 10/18/18 12/27/18 Previous Rx's Medication Instructions Recorded meclizine 25 mg PO Q8H PRN #20 tab 11/08/16 omeprazole 40 mg PO BID #0 tab-cap 04/02/17 clopidogrel [Plavix] 75 mg PO DAILY #30 tab 10/16/18 levothyroxine 175 mcg PO DAILY@0600 #30 tab 10/16/18 Allergies Allergy/AdvReac Type Severity Reaction Status Date / Time No Known Allergies Allergy Unverified 12/27/18 22:33 General Stated Complaint: Chest Pain DAYLIN: 2 Review of Systems <Kj Peterson MD - Last Filed: 01/07/19 02:10> Review of Systems ROS Unobtainable: All systems reviewed & are unremarkable except as noted in HPI and below Constitutional Constitutional: Denies fever(s) Cardiovascular Cardiovascular: Reports as per HPI, Reports chest pain, Denies diaphoresis, Denies syncope, Reports edema and Denies dyspnea Respiratory Respiratory: Denies dyspnea Gastrointestinal Gastrointestinal: Denies abdominal pain Neurologic Neurologic: Denies syncope PFSH <Kj Peterson MD - Last Filed: 01/07/19 02:10> Medical History Aortic valve replaced CAD (coronary artery disease) COPD (chronic obstructive pulmonary disease) CVA (cerebral vascular accident) (Chronic) Diabetic neuropathy DM (diabetes mellitus) HTN (hypertension) Hypothyroidism IVETTE (obstructive sleep apnea) Pacemaker Renal insufficiency Surgical History Coronary Artery Bypass Gaft (CABG) Coronary Stent CABGx4 Pacemaker Replacement of aortic valve Family History Other Cancer Heart disease Social History Smoking/Tobacco Use Status: Never Alcohol Intake: former Drug use: Never Substance use type: does not use Details: Pt reports no alcohol since his heart attack 1995 Household members: none current occupation: Lives at [employer]. Disabled since . Do you feel safe at home: Yes Do you feel safe in your relationship?: Yes Additional Social history: lives alone, [facility] comes in to assiste pt. Exam <Kj Peterson MD - Last Filed: 01/07/19 02:10> Const General: cooperative and no acute distress HENMT Head: normocephalic Mouth: moist mucous membranes Eyes Conjunctivae: normal conjunctivae Sclera: normal sclerae Neck Neck: trachea midline, supple and no JVD Resp Auscultation: clear to auscultation bilaterally, no rales, no rhonchi and no wheezes Cardio Jugular venous pressure: no JVD Rate: regular rate and not tachycardic Rhythm: regular rhythm GI Palpation: soft, not firm, no guarding, no masses, not rigid and nontender Skin General skin exam: no rashes or lesions noted Neuro General: alert, awake, oriented x3 and tone normal Extrem General: no calf tenderness and edema Laterality: bilateral (1+ pitting) Psych Appearance: grossly normal Mental Status: mental status grossly normal Course <Kj Peterson MD - Last Filed: 01/07/19 02:10> Vital Signs Vital signs: Vital Signs Temperature 36.5 C 12/15/18 19:10 Pulse 85 12/15/18 19:10 Respiratory Rate 15 12/15/18 19:10 Blood Pressure 171/93 H 12/15/18 19:10 Pulse Oximetry 99 12/15/18 19:10 Temperature 36.5 C 12/15/18 19:10 Temperature Source Skin 12/15/18 19:10 Pulse 85 12/15/18 19:10 Respiratory Rate 18 12/15/18 19:13 Respiratory Effort 12/15/18 19:13 Blood Pressure 171/93 H 12/15/18 19:10 Blood Pressure Position Supine 12/15/18 19:10 Pulse Oximetry 99 12/15/18 19:37 Oxygen Delivery Method Nasal Cannula 12/15/18 19:37 Oxygen Flow Rate 2 12/15/18 19:37 Lab/Test Results Lab/Test Results: Laboratory Tests Range/Units 12/15/18 12/15/18 19:25 19:25 WBC (4.4-10.8) k/cumm 6.25 RBC (4.50-6.00) m/cumm 4.46 L Hgb (13.5-17.5) g/dL 13.1 L Hct (40.0-50.0) % 39.2 L MCV (80-95) fL 87.9 MCH (27.0-33.0) pg 29.4 MCHC (32.0-36.0) g/dL 33.4 RDW (11.8-14.1) % 14.0 Plt Count (130-400) x1000/uL 204 MPV (8.0-11.0) fL 10.2 Immature Gran % 0.3 Neutrophils % 55.2 Lymphocytes % 33.6 Monocytes % 7.4 Eosinophils % 2.4 Basophils % 1.1 Absolute Neutrophils (1.2-6.7) k/cumm 3.45 Absolute Lymphocytes (1.2-3.4) k/cumm 2.10 Absolute Monocytes (0.11-0.7) k/cumm 0.46 Absolute Eosinophils (0.0-0.7) k/cumm 0.15 Absolute Basophils (0.0-0.2) k/cumm 0.07 Sodium (136-145) mmol/L 137 Potassium (3.5-5.1) mmol/L 3.9 Chloride (98-107) mmol/L 99 Carbon Dioxide (21.0-32.0) mmol/L 31.1 Anion Gap (3-11) mmol/L 6.9 BUN (7-18) mg/dL 21 H Creatinine (0.70-1.30) mg/dL 1.35 H Estimated GFR/1.73 m2 (mL/min/1.73m2) 52.88 Glucose (70-100) mg/dL 477 H Calcium (8.5-10.1) mg/dL 8.8 Total Bilirubin (0.2-1.0) mg/dL 0.9 AST (15-37) U/L 16 ALT (16-63) U/L 17 Alkaline Phosphatase (46-116) U/L 75 Troponin I (0.00-0.06) ng/mL < 0.05 NT-Pro-B Natriuret Pep ( - 299) pg/mL 1764 H Total Protein (6.4-8.2) g/dL 6.7 Albumin (3.4-5.0) g/dL 2.7 L Sign Out <Kj Peterson MD - Last Filed: 01/07/19 02:10> Sign Out Data: Sign Out Comment: Follow-up CT chest for PE. Follow-up labs. Reassess patient for disposition. Last updated by Kj Peterson MD at 12/15/18 20:25
--- NOTE | 2018-12-15 20:17 | NUR.NOTE ---
Nursing Note: Home med list reviewedw eligio pt, Did not bring list today.
[2018-12-15] MEDS: Omnipaque 350 MG/ML 100 ML BTL IJ (20:31)
--- NOTE | 2018-12-15 20:45 | DI.CT_ITS ---
EXAM: CT CHEST PE CTA CLINICAL HISTORY: pleuritic chest pain, central and left chest. TECHNIQUE: COMPARISON: CT ABDOMEN PELVIS W from 10/15/2018 FINDINGS: CT angiography of chest was performed with bolus infusion 100 cc of Omnipaque 350. There are small b ilateral pleural effusions. The lungs are clear but hypoinflated. No evidence of pulmonary embolic disease. Aortic valve replacement. Transvenous cardiac pacemaker in position. No mediastinal or hi lar adenopathy. Tracheobronchial tree appears intact. IMPRESSION: No evidence of acute pulmonary embolic disease
[2018-12-15] MEDS: Insulin REGULAR-Human 100 UNITS/ML UNIT 10 UNITS SC (20:52)
[2018-12-15] MEDS: Normal Saline 250 ML IV (21:09)
--- NOTE | 2018-12-15 21:09 | DI.VRAD_ITS ---
PROCEDURE INFORMATION: Exam: CT Angiography Chest With Contrast Exam date and time: 12/15/2018 8:35 PM Clinical history: 68 years old, male; Other: Pleuritic chest pain, central left chest pain; Prior surgery; Surgery date: 6+ months; Surgery type: Pace maker 3 years ago TECHNIQUE: Imaging protocol: Computed tomographic angiography of the chest with intravenous contrast. 3D rendering: MIP reconstructed images were created and reviewed. Radiation optimization: All CT scans at this facility use at least one of these dose optimization techniques: automated exposure control; mA and/or kV adjustment per patient size (includes targeted exams where dose is matched to clinical indication); or iterative reconstruction. Contrast material: OMNIPAQUE 350; Contrast volume: 90 ml; Contrast route: IV RAC; COMPARISON: CR XR CHEST 2V PA LATERAL 11/13/2018 3:37 PM FINDINGS: Tubes, catheters and devices: Transvenous pacemaker. Generator in left upper chest, one lead terminating in right atrium and second lead in right ventricular apex. Pulmonary arteries: Dependent pulmonary vascular prominence. No pulmonary artery filling defects to segmental level. Evaluation more distally is limited. Aorta: No aortic aneurysm or dissection. Lungs: Unremarkable. No consolidation. No masses. Pleural space: Small bilateral pleural effusions. Heart: Status post median sternotomy for coronary artery bypass grafting. Status post TAVR. Cardiomegaly. Liver: There is diffuse decrease in hepatic parenchymal density, consistent with mild fatty infiltration. Lymph nodes: Unremarkable. No enlarged lymph nodes. Bones/joints: Unremarkable. No acute fracture. The spine demonstrates moderate degenerative changes at multiple levels. Soft tissues: Unremarkable. IMPRESSION: 1. No pulmonary embolism demonstrated to segmental level. Evaluation more distally occluded. 2. Pulmonary vascular congestion. 3. Cardiomegaly. 4. Hepatic steatosis. 5. Pleural effusions. Dictated and Authenticated by: Florian Minor MD. Ordering:ALVIN Underwood MD
[2018-12-15 21:30] VITALS: BP 189/90; PULSE 77; RESP 14; O2SAT 99
[2018-12-15 22:43] LABS: Troponin I 0.05 ng/mL (0.00-0.06)
[2018-12-15 23:15] VITALS: BP 199/84; PULSE 70; RESP 18; O2SAT 99
[2018-12-15 23:52] VITALS: BP 186/82; PULSE 76; RESP 17; TEMP 36.5; O2SAT 95
--- NOTE | 2018-12-15 23:53 | NUR.NOTE ---
Nursing Note: Ambulated to BR with steady gait. remains pain free. denies CP, SOB. IV dc'd.
--- NOTE | 2018-12-16 00:17 | NUR.NOTE ---
Nursing Note: Discharge instructions reviewed with verbal understanding. aware to f/u with pcp as needed. ambulated to exit with steady gait.
--- NOTE | 2018-12-17 12:07 | W.CARDEVENT ---
Cardiac Event Recorder Cardiac Event Note: The study is a 30 day MCT monitor ordered for history of stroke. -There were no events of atrial fibrillation recorded. -Sinus rhythm with an average heart rate of 70 bpm (min 58 - max 117). -There were rare (less than 1%) isolated and paired atrial premature complexes. -There were rare (less than 1%) isolated ventricular premature complexes. There were no runs of ventricular tachycardia. -All patient triggered events were associated with sinus rhythm, or an isolated atrial/ventricular premature complex -There were no pauses greater than 3 seconds
== END 2018-12-16 00:20 | disposition home or self-care (01) ==
PROVIDERS: Student in an Organized Health Care Education/Training Program; Emergency Provider Physician Assistant; PCP Registered Nurse
DX: R07.89 Other chest pain (principal); J44.9 Chronic obstructive pulmonary disease, unspecified; E11.42 Type 2 diabetes mellitus with diabetic polyneuropathy; I10 Essential (primary) hypertension; Z95.0 Presence of cardiac pacemaker; Z95.5 Presence of coronary angioplasty implant and graft; Z95.1 Presence of aortocoronary bypass graft; Z95.4 Presence of other heart-valve replacement
CPT/HCPCS: 36415; 71275; 80053; 93005; 96361; 96372; 96374; 99285; 83880; 84484; 85025; 93010; J3490

== ENCOUNTER 2018-12-17 12:07 | Outpatient (CLI) | payer MEDICARE, OTHER, MEDICAID, SELFPAY | END 2018-12-17 12:27 | PROVIDERS: PCP Registered Nurse; Referring Provider Registered Nurse; Visit Provider Internal Medicine Cardiovascular Disease | DX: I63.331 Cerebral infarction due to thrombosis of right posterior cerebral artery (principal); I49.1 Atrial premature depolarization; I49.3 Ventricular premature depolarization | CPT/HCPCS: 93228 ==

== ENCOUNTER 2018-12-27 22:12 | Emergency (ER) | payer MEDICARE, OTHER, MEDICAID, SELFPAY ==
[2018-12-27] VITALS (12 sets, daily range): BP systolic 159–163; BP diastolic 75–92; PULSE 81–92; RESP 18–20; TEMP 36.7; O2SAT 95–97
--- NOTE | 2018-12-27 22:38 | W.ED.GENAD ---
Discharge Plan Disposition Patient Disposition: HOME Condition: Good Discharge Details Chief Complaint: Dizzy/Sync Clinical Impression: Dehydration, Hyperbilirubinemia, Acute UTI Primary Care Provider: ALEXUS LAN ED Provider: Torsten Diane Home Meds and New Rx's Prescriptions: New cephalexin [Keflex] 500 mg capsule 500 mg PO QID 7 Days Qty: 28 RF: 0 Continued mirtazapine 15 mg tablet 15 mg PO DAILY RF: 0 cholecalciferol (vitamin D3) 1,000 UNIT capsule 1,000 unit PO DAILY RF: 0 fluticasone propion-salmeterol [Advair Diskus] 1 EACH blister with device 1 puff Inhalation BID RF: 0 ProAir RespiClick 90 MCG aerosol powdr breath activated 90 mcg Inhalation Q4H PRN RF: 0 tamsulosin 0.4 MG capsule 0.4 mg PO DAILY RF: 0 Novolog Flexpen U-100 Insulin 100 UNIT/1 ML insulin pen See Rx Instructions .ROUTE .COMPLEX RF: 0 ezetimibe [Zetia] 10 MG tablet 10 mg PO QAM RF: 0 escitalopram oxalate [Lexapro] 20 MG tablet 20 mg PO QAM RF: 0 isosorbide mononitrate 120 MG tablet extended release 24 hr 120 mg PO QAM RF: 0 furosemide 40 MG tablet 40 mg PO DAILY RF: 0 atorvastatin [Lipitor] 80 MG tablet 80 mg PO HS RF: 0 ropinirole 2 MG tablet 2 mg PO HS RF: 0 nitroglycerin [Nitrostat] 0.4 MG tablet, sublingual 0.4 mg Sublingual PRN PRNRF: 0 multivitamin [Daily Multi-Vitamin] 1 EACH tablet 2 tab PO QAM RF: 0 metoprolol succinate 100 MG tablet extended release 24 hr 100 mg PO DAILY RF: 0 Lantus Solostar U-100 Insulin 100 UNIT/ML insulin pen 42 unit SQ QAM RF: 0 omeprazole 20 MG capsule,delayed release(DR/EC) 40 mg PO BID Qty: 0 RF: 0 meclizine 25 MG tablet 25 mg PO Q8H PRN (Reason: Vertigo) Qty: 20 RF: 0 gabapentin 300 mg Capsule 300 mg PO HS RF: 0 levothyroxine 175 mcg Tablet 175 mcg PO DAILY@0600 Qty: 30 RF: 0 clopidogrel [Plavix] 75 mg Tablet 75 mg PO DAILY Qty: 30 RF: 0 metformin 500 mg Tablet 500 mg PO BID RF: 0 Slow-Mag 71.5 mg Tablet,Delayed Release (Dr/Ec) 71.5 mg PO DAILY RF: 0 Discharge Instructions Instructions: Dehydration (ED), Urinary Tract Infection in Men (ED) Additional Instructions: I feel that your symptoms are likely from mild dehydration. However you have many medical problems which I believe are playing into this. Please continue to stay well-hydrated at home and drink plenty of fluids. You have a questionable mild urinary tract infection, please take the antibiotic as directed. Your sugars are not well controlled, this may be secondary to a virus, or your mild urinary tract infection. Please watch your sugars closely and use your insulin at home as directed. Please follow-up closely with your primary care provider in regards to your elevated bilirubin. You may require further evaluation on an outpatient setting for this. Additionally you may require increased dosing for your levothyroxine as you are thyroid still appears to be low functioning. If you notice any worsening of your symptoms, or any new symptoms such as vomiting, diarrhea, fever, chills, shortness of breath, chest pain, numbness, weakness, or fainting , please return immediately to the emergency department for reevaluation. Please follow up with your primary care provider as soon as possible for reassessment and reevaluation. As always, it was a pleasure participating in your medical care today. Referrals: ALEXUS LAN, [employer] [Primary Care Provider] - Medical Decision Making This is a pleasant 68-year-old male with a past medical history of pacemaker defibrillator, coronary artery disease and CABG, COPD, diabetes, depression, irritable bowel syndrome, hypothyroidism, chronic anemia, who presents today for evaluation of generalized malaise, mild dizziness, mild nausea without vomiting. Additionally he has had a cough for the last week, that is been nonproductive. No hemoptysis. Physical exam demonstrates no nystagmus, and a surprisingly normal neurologic exam. Notably dry mucous membranes. No abdominal tenderness whatsoever. Lungs are clear. Signs and symptoms are concerning for metabolic disorder, electrolyte abnormality, dehydration or hyperglycemia. Previous echo demonstrates normal systolic function but reduced diastolic function. We will gently rehydrate, evaluate for laboratory abnormalities, evaluate for unlikely or atypical ACS, CT scan of his head to rule out acute abnormality. 2:43 AM Patient's laboratory work-up is returned relatively unremarkable, no significant white count, bandemia or leukocytosis. No acidosis on VBG. Urine does show mild ketones, mild blood which is very typical for him, questionable mild UTI though. Electrolytes are stable, no anion gap. Renal function stable. TSH is elevated, however free T4 is borderline low end of normal. Recommend continued follow-up with his PCP in regards to this. No clinical evidence of myxedema coma at this time. Serial troponins are unremarkable. EKG unchanged. Patient's bilirubin is elevated at 2.1, however CT scan shows no evidence of acute gallbladder pathology or other abnormality. On reassessment the patient's dizziness is resolved, he is feeling much better. He was given 10 units of subcu insulin to help with his hyperglycemia and upon gentle rehydration feels significantly improved. Discussed admission versus discharge and at this time the patient feels comfortable to go home. Signs and symptoms appear to be consistent with mild dehydration, potentially secondary to hyperglycemia, poor control at home. Questionable UTI may also be a potential component. Abdomen abundance of precaution we will give Rocephin here and Keflex for home use. Recommend close follow-up with his PCP for management of his thyroid disease, and elevated bilirubin. Repeat abdominal exam shows no clinical evidence of an acute surgical abdomen, he shows no clinical jaundice, and he has been able to tolerate p.o. I have extensively reviewed the treatment plan and discharge instructions with the patient. I have addressed all patient concerns at this time. The patient was made aware of what symptoms to monitor for that would warrant a return to the emergency department. Discussed the plan with the patient, they demonstrate verbal understanding and agreement with our assessment and plan at this time. EKG 22: 33 Rate 86, [place] 164, QTc 490, QRS 148, sinus rhythm, right bundle branch block, no other significant abnormalities, evaluation of EKG from 12/15/2018 demonstrates identical findings. FINDINGS: Brain: Encephalomalacia is developing in the right temporal and occipital lobes. No acute infarct. Mild cerebral cortical atrophy again seen. No acute intracranial hemorrhage. Ventricles: No ventriculomegaly. Bones/joints: No acute fracture. Sinuses: No acute sinusitis. Mastoid air cells: No mastoid effusion. Orbits: Exophthalmos. Soft tissues: No suspicious lesions. IMPRESSION: No acute intracranial findings. Thank you for allowing us to participate in the care of your patient. Dictated and Authenticated by: Maureen Javed MD 12/27/2018 11:24 PM Eastern Time ([place] & [place]) FINDINGS: Tubes, catheters and devices: Dual lead pacemaker in the expected position. Lungs: No consolidation. Pleural space: No pleural effusion. No pneumothorax. Heart/Mediastinum: Stable mild cardiomegaly without volume overload. Bones/joints: Median sternotomy wires. No displaced fracture. Aortic valvular prosthesis again seen. IMPRESSION: Stable mild cardiomegaly without volume overload. Thank you for allowing us to participate in the care of your patient. Dictated and Authenticated by: Maureen Javed MD FINDINGS: Tubes, catheters and devices: Cardiac pacemaker leads are partially seen. Lungs: Minimal dependent subsegmental atelectasis. Liver: No mass. Gallbladder and bile ducts: No calcified stones. No ductal dilation. No inflammatory changes. Pancreas: No ductal dilation. No masses. Spleen: No splenomegaly or focal lesions. Adrenals: No mass. Kidneys and ureters: Benign-appearing renal cysts and probable cysts. Follow-up as per institutional protocol. No renal masses or hydronephrosis bilaterally. Stomach and bowel: No obstruction. No mucosal thickening. Appendix: No evidence of appendicitis. Intraperitoneal space: No free air. No significant fluid collection. Vasculature: Aortic prosthesis partially seen. Lymph nodes: No significantly enlarged lymph nodes. Bladder: Unremarkable as visualized. Reproductive: Unremarkable as visualized. Bones/joints: Median sternotomy wires are partially seen. Soft tissues: Small fat-containing umbilical hernia. Small fat-containing right inguinal hernia. IMPRESSION: 1. No acute findings. 2. Incidental findings as described. Thank you for allowing us to participate in the care of your patient. Dictated and Authenticated by: Maureen Javed MD [facility] General Date/Time Provider Initiated Documentation: 12/27/18 22:15. HPI Narrative: This is a pleasant 68-year-old male with a past medical history of pacemaker defibrillator, coronary artery disease with CABG, COPD, diabetes, depression, irritable bowel syndrome, hypothyroidism, chronic anemia, who presents today for evaluation of feelings of mild dizziness and nausea without vomiting. He also has mild cough. For the past week he has had a mild cough, however today he is felt shaky, nauseous without vomiting, slightly dizzy. He denies any recent trauma. He has been checking his sugars at home and they have been in the 300s. He states that he has been taking his medications including his Lantus. He denies any chest pain, chest heaviness, chest tightness, shortness of breath. He states that his whole body feels slightly numb, but he denies any focal numbness tingling or weakness. He has mild dizziness is not made worse by movement or turning his head. He denies any tinnitus. He denies any other complaints at this time. No other modifying factors. Of note he also states that the symptoms are not similar to his previous episodes of coronary artery disease. Related Data Home Medications Medication Instructions Recorded Confirmed atorvastatin [Lipitor] 80 mg PO HS 01/05/14 12/27/18 escitalopram oxalate [Lexapro] 20 mg PO QAM 01/05/14 12/27/18 ezetimibe [Zetia] 10 mg PO QAM 01/05/14 12/27/18 furosemide 40 mg PO DAILY 01/05/14 12/27/18 isosorbide mononitrate 120 mg PO QAM 01/05/14 12/27/18 multivitamin [Daily Multi-Vitamin] 2 tab PO QAM 01/05/14 12/27/18 nitroglycerin [Nitrostat] 0.4 mg SUBLINGUAL PRN PRN 01/05/14 12/27/18 ropinirole 2 mg PO HS 01/05/14 12/27/18 cholecalciferol (vitamin D3) 1,000 unit PO DAILY 04/21/15 12/27/18 meclizine 25 mg PO Q8H PRN #20 tab 11/08/16 12/27/18 Lantus Solostar U-100 Insulin 42 unit SQ QAM 04/02/17 12/27/18 metoprolol succinate 100 mg PO DAILY 04/02/17 12/27/18 omeprazole 40 mg PO BID #0 tab-cap 04/02/17 12/27/18 ProAir RespiClick 90 mcg INHALATION Q4H PRN 07/10/17 12/27/18 fluticasone propion-salmeterol 1 puff INHALATION BID disk 07/10/17 12/27/18 [Advair Diskus] Novolog Flexpen U-100 Insulin See Rx Instructions .ROUTE .COMPLEX 07/20/17 12/27/18 tamsulosin 0.4 mg PO DAILY tab-cap 07/20/17 12/27/18 mirtazapine 15 mg tablet 15 mg PO DAILY 07/23/18 12/27/18 gabapentin 300 mg PO HS 10/04/18 12/27/18 clopidogrel [Plavix] 75 mg PO DAILY #30 tab 10/16/18 12/27/18 levothyroxine 175 mcg PO DAILY@0600 #30 tab 10/16/18 12/27/18 Slow-Mag 71.5 mg PO DAILY 10/18/18 12/27/18 metformin 500 mg PO BID 10/18/18 12/27/18 cephalexin [Keflex] 500 mg PO QID 7 Days #28 cap 12/28/18 Previous Rx's Medication Instructions Recorded meclizine 25 mg PO Q8H PRN #20 tab 11/08/16 omeprazole 40 mg PO BID #0 tab-cap 04/02/17 clopidogrel [Plavix] 75 mg PO DAILY #30 tab 10/16/18 levothyroxine 175 mcg PO DAILY@0600 #30 tab 10/16/18 cephalexin [Keflex] 500 mg PO QID 7 Days #28 cap 12/28/18 Allergies Allergy/AdvReac Type Severity Reaction Status Date / Time No Known Allergies Allergy Unverified 12/27/18 22:33 General Stated Complaint: Dizzy/Sync DAYLIN: 2 Review of Systems Review of Systems ROS Unobtainable: All systems reviewed & are unremarkable except as noted in HPI and below PFSH Social History Smoking/Tobacco Use Status: Never Alcohol Intake: former Drug use: Never Substance use type: does not use Details: Pt reports no alcohol since his heart attack 1995 Household members: none current occupation: Lives at [employer]. Disabled since . Do you feel safe at home: Yes Do you feel safe in your relationship?: Yes Additional Social history: lives alone, [facility] comes in to assiste pt. Exam Narrative Exam Narrative: 1.Const: Well-nourished, Well-developed, appearing stated age 2.Eyes: PERRL, no conjunctival injection, and symmetrical lids. No horizontal vertical or rotatory nystagmus. Negative test of skew. 3.ENT: Atraumatic external nose and ears. Notably dry MM. Neck: Symmetric, trachea midline, No thyromegaly. 4.CVS: +S1/S2, No murmurs or gallops. Peripheral pulses 2+ and equal in all extremities. Brisk capillary refill in all extremities. 5.RESP: Unlabored respiratory effort. Clear to auscultation bilaterally. No wheezes rales or rhonchi 6.GI: Soft, Nontender/Nondistended, No hepatosplenomegaly. No guarding or rebound. No pain at McBurney's point, negative Tanner sign. 7.MSK: Normocephalic/Atraumatic, Extremities w/o deformity or ttp No cyanosis or clubbing, Normal movement of all extremities 8.Skin: Warm, Dry. No rashes or lesions. 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 Sensation grossly intact, no focal neurologic deficits. All 6 cardinal planes of vision are fully intact. No evidence of rotatory or vertical nystagmus. The patient demonstrated a normal [id number], good dexterity. There was no evidence of dysdiadochokinesia. Patient was able to ambulate without difficulty. There was no wide-based gait. [id number] normal on testing. Sensation was intact bilaterally as well as muscle strength bilaterally for all extremities. Patient was able to verbalize butter cup with no slurring, or miss pronunciation. 10.Psych: (AAO) x3. Appropriate mood and affect Course Vital Signs Vital signs: Vital Signs Temperature 36.7 C 12/27/18 22:30 Pulse 92 H 12/27/18 22:30 Respiratory Rate 20 12/27/18 22:30 Blood Pressure 163/92 H 12/27/18 22:30 Pulse Oximetry 95 12/27/18 22:30 Temperature 36.7 C 12/27/18 22:30 Pulse 92 H 12/27/18 22:30 Respiratory Rate 20 12/27/18 22:30 Blood Pressure 163/92 H 12/27/18 22:30 Pulse Oximetry 95 12/27/18 22:30 Oxygen Delivery Method Room Air 12/27/18 22:30 Oxygen Flow Rate 0 12/27/18 22:30 Pain Level 0 12/27/18 22:30
[2018-12-27] MEDS: Normal Saline 500 ML IV (22:55)
--- NOTE | 2018-12-27 23:10 | DI.CT_ITS ---
EXAM: CT HEAD WO CLINICAL HISTORY: dizzy, hx of stroke TECHNIQUE: Noncontrast cranial CT was performed. COMPARISON: CT HEAD WO from 10/15/2018 FINDINGS: There is moderate generalized cerebral atrophy. There is an old area of encephalomalacia consistent w ith remote infarct involving portions of the right temporal and occipital lobes, consistent with a po sterior circulation infarct. No evidence of acute intracranial hemorrhage, mass effect or midline alonso ft. Orbital and temporal bone structures appear intact. Paranasal sinuses and mastoid air cells are c lear as visualized. IMPRESSION: No evidence of acute intracranial process.
--- NOTE | 2018-12-27 23:17 | DI.RAD_ITS ---
EXAM: XR CHEST 2V PA LATERAL CLINICAL HISTORY: cough for 1 week COMPARISON: XR CHEST 2V PA LATERAL from 11/13/2018 FINDINGS: The heart is at the upper limits of normal in size. Lungs are clear. No pleural effusion seen. Pre viously noted cardiac pacemaker and proximal aortic graft again noted. No pleural effusion. IMPRESSION: No evidence of acute process.
[2018-12-27] MEDS: Meclizine 25 MG TAB PO (23:23)
--- NOTE | 2018-12-27 23:23 | DI.VRAD_ITS ---
PROCEDURE INFORMATION: Exam: XR Chest, 2 Views Exam date and time: 12/27/2018 23:17 Clinical history: 68 years old, male; Cough; Prior surgery; Surgery type: Pacemaker TECHNIQUE: Imaging protocol: XR of the chest Views: 2 views. COMPARISON: CR XR CHEST 2V PA LATERAL 11/13/2018 15:37 FINDINGS: Tubes, catheters and devices: Dual lead pacemaker in the expected position. Lungs: No consolidation. Pleural space: No pleural effusion. No pneumothorax. Heart/Mediastinum: Stable mild cardiomegaly without volume overload. Bones/joints: Median sternotomy wires. No displaced fracture. Aortic valvular prosthesis again seen. IMPRESSION: Stable mild cardiomegaly without volume overload. Dictated and Authenticated by: Maureen Javed MD. Ordering:JELENA Sarmiento MD
--- NOTE | 2018-12-27 23:24 | DI.VRAD_ITS ---
PROCEDURE INFORMATION: Exam: CT Head Without Contrast Exam date and time: 12/27/2018 23:07 Clinical history: 68 years old, male; Dizziness; Patient HX: HX stroke TECHNIQUE: Imaging protocol: Computed tomography of the head without contrast. Radiation optimization: All CT scans at this facility use at least one of these dose optimization techniques: automated exposure control; mA and/or kV adjustment per patient size (includes targeted exams where dose is matched to clinical indication); or iterative reconstruction. COMPARISON: CT HEAD WO 10/15/2018 08:28 FINDINGS: Brain: Encephalomalacia is developing in the right temporal and occipital lobes. No acute infarct. Mild cerebral cortical atrophy again seen. No acute intracranial hemorrhage. Ventricles: No ventriculomegaly. Bones/joints: No acute fracture. Sinuses: No acute sinusitis. Mastoid air cells: No mastoid effusion. Orbits: Exophthalmos. Soft tissues: No suspicious lesions. IMPRESSION: No acute intracranial findings. Dictated and Authenticated by: Maureen Javed MD. Ordering:JELENA Sarmiento MD
[2018-12-27 23:46] LABS: HCO3 (Venous) 29 mmol/L (22-28); O2 Sat (Venous) 69 % (70-80); TCO2 (Venous) 25 mmol/L (22-29); pCO2 (Venous) 48 mm/Hg (34-47); pH (Venous) 7.39 (7.32-7.43); pO2 (Venous) 36 mm/Hg (28-44)
[2018-12-27 23:47] LABS: Abs Immature Grans 0.01 k/cumm (0.0-0.09); Absolute Basophil Count 0.05 k/cumm (0.0-0.2); Absolute Eosinophil Count 0.09 k/cumm (0.0-0.7); Absolute Lymphocyte Count 0.95 k/cumm (1.2-3.4); Absolute Monocyte Count 0.64 k/cumm (0.11-0.7); Absolute Neutrophil Count 8.45 k/cumm (1.2-6.7); Basophils % 0.5; Eosinophils % 0.9; HCT 42.2 % (40.0-50.0); HGB 14.4 g/dL (13.5-17.5); Immature Grans % 0.1; Lymphocytes % 9.3; Mean Corp. HGB Concentration 34.1 g/dL (32.0-36.0); Mean Corpuscular Hemoglobin 29.4 pg (27.0-33.0); Mean Corpuscular Volume 86.1 fL (80-95); Mean Platelet Volume 10.1 fL (8.0-11.0); Monocytes % 6.3; Neutrophils % 82.9; Platelet Count 268 x1000/uL (130-400); RBC Distribution Width 13.8 % (11.8-14.1); White Blood Cell Count 10.19 k/cumm (4.4-10.8)
[2018-12-27] MEDS: Metoclopramide 10 MG/2 ML VIAL IVP (23:58)
[2018-12-28] VITALS (23 sets, daily range): BP systolic 137–163; BP diastolic 69–81; PULSE 76–99; RESP 18; O2SAT 95–99
[2018-12-28] MEDS: Normal Saline 50 ML (00:09)
[2018-12-28 00:12] LABS: ALT 13 U/L (16-63); AST 12 U/L (15-37); Albumin 2.7 g/dL (3.4-5.0); Alkaline Phosphatase 77 U/L (46-116); Anion Gap 9.5 mmol/L (3-11); BUN 19 mg/dL (7-18); Bilirubin, Total 2.1 mg/dL (0.2-1.0); CO2 28.5 mmol/L (21.0-32.0); CREATININE 1.24 mg/dL (0.70-1.30); Calcium 8.8 mg/dL (8.5-10.1); Chloride 97 mmol/L (98-107); Estimated GFR 58.33 (mL/min/1.73m2); Glucose 339 mg/dL (70-100); Lipase 71 U/L (73-393); NT-proBNP 1815 pg/mL; Sodium 135 mmol/L (136-145); TSH (W/Ref FT4) 15.96 uIU/mL (0.36-3.74); Total Protein 7.1 g/dL (6.4-8.2)
[2018-12-28 00:15] LABS: Troponin I < 0.05 ng/mL (0.00-0.06)
[2018-12-28 00:41] LABS: FREE T4 0.74 ng/dL (0.76-1.46)
[2018-12-28] MEDS: Omnipaque 350 MG/ML 100 ML BTL IJ (01:02)
--- NOTE | 2018-12-28 01:03 | DI.CT_ITS ---
EXAM: CT ABDOMEN PELVIS W CLINICAL HISTORY: nausea, elevated bili, r/o gb pathology TECHNIQUE: CT examination of the abdomen and pelvis was performed with a bolus infusion of 100 cc of Omnipaque 350. COMPARISON: CT CHEST PE CTA from 12/15/2018 FINDINGS: Note is made of cardiac pacemaker and aortic graft. Visualized lung bases are clear. Liver, spleen and pancreas are unremarkable. Gallbladder and bile ducts are CT normal. Multiple renal cysts again noted. No evidence of urinary tract calcification or obstruction. Adrenals are unremarkable. Abdo zenaida aorta is of normal diameter. There is some atheromatous calcification of thoracic aorta and ma ирина visceral branches but no significant stenosis is identified. Small fat containing umbilical hernia noted. Small bilateral fat containing inguinal hernias noted. No abdominal or pelvic adenopathy. Appendix is normal. No evidence of diverticulitis or bowel obst ruction. There is wall thickening of the urinary bladder which may represent chronic bladder outlet obstructio n versus cystitis. IMPRESSION: Urinary bladder wall thickening which may represent cystitis versus chronic bladder outlet obstructio n. Please correlate clinically.
--- NOTE | 2018-12-28 01:17 | DI.VRAD_ITS ---
PROCEDURE INFORMATION: Exam: CT Abdomen And Pelvis With Contrast Exam date and time: 12/28/2018 00:29 Clinical history: 68 years old, male; Prior surgery; Surgery date: 6+ months; Surgery type: Pacemaker; Patient HX: Nausea, elevated bili, R/O gb pathology TECHNIQUE: Imaging protocol: Computed tomography of the abdomen and pelvis with intravenous contrast. Radiation optimization: All CT scans at this facility use at least one of these dose optimization techniques: automated exposure control; mA and/or kV adjustment per patient size (includes targeted exams where dose is matched to clinical indication); or iterative reconstruction. Contrast material: [id number]; Contrast volume: 100 ml; Contrast route: IV RAC 18G; COMPARISON: CT ABDOMEN PELVIS W 10/15/2018 08:34 FINDINGS: Tubes, catheters and devices: Cardiac pacemaker leads are partially seen. Lungs: Minimal dependent subsegmental atelectasis. Liver: No mass. Gallbladder and bile ducts: No calcified stones. No ductal dilation. No inflammatory changes. Pancreas: No ductal dilation. No masses. Spleen: No splenomegaly or focal lesions. Adrenals: No mass. Kidneys and ureters: Benign-appearing renal cysts and probable cysts. Follow-up as per institutional protocol. No renal masses or hydronephrosis bilaterally. Stomach and bowel: No obstruction. No mucosal thickening. Appendix: No evidence of appendicitis. Intraperitoneal space: No free air. No significant fluid collection. Vasculature: Aortic prosthesis partially seen. Lymph nodes: No significantly enlarged lymph nodes. Bladder: Unremarkable as visualized. Reproductive: Unremarkable as visualized. Bones/joints: Median sternotomy wires are partially seen. Soft tissues: Small fat-containing umbilical hernia. Small fat-containing right inguinal hernia. IMPRESSION: 1. No acute findings. 2. Incidental findings as described. Dictated and Authenticated by: Maureen Javed MD. Ordering:JELENA Sarmiento MD
[2018-12-28] MEDS: Insulin REGULAR-Human 100 UNITS/ML UNIT 10 UNITS SC (01:19)
[2018-12-28 02:13] LABS: Bilirubin Negative (Negative); Blood Moderate (Negative); Clarity Clear (Clear); Glucose 500 mg/dL (Negative); Ketones 15 mg/dL (Negative); Leukocyte Esterase Negative (Negative); Nitrite Negative (Negative); Specific Gravity 1.025 (1.005-1.025); Urobilinogen 0.2 EU/dL (Up TO 0.2)
[2018-12-28 02:19] LABS: Epithelial Cells Many HPF (Negative); RBC >50 (0-2)
[2018-12-28 02:20] LABS: Bacteria Few HPF (Negative); Crystals Negative HPF (Negative); Mucus Heavy (Negative)
[2018-12-28 02:21] LABS: C & S Indicated? No/Sq. Contamination; Casts Negative LPF (Negative)
[2018-12-28 02:24] LABS: Troponin I < 0.05 ng/mL (0.00-0.06)
[2018-12-28 03:20] LABS: PTT Activated 26.4 sec (21.0-31.4)
[2018-12-28 06:31] LABS: Bilirubin, Direct 0.27 mg/dL (0.00-0.20)
== END 2018-12-28 03:25 | disposition home or self-care (01) ==
PROVIDERS: Emergency Provider Student in an Organized Health Care Education/Training Program; PCP Registered Nurse
DX: E86.0 Dehydration (principal); E80.6 Other disorders of bilirubin metabolism; N39.0 Urinary tract infection, site not specified; I25.10 Atherosclerotic heart disease of native coronary artery without angina pectoris; J44.9 Chronic obstructive pulmonary disease, unspecified; E11.42 Type 2 diabetes mellitus with diabetic polyneuropathy; I10 Essential (primary) hypertension; Z95.0 Presence of cardiac pacemaker
CPT/HCPCS: 36415; 80053; 82805; 83690; 93005; 96361; 96372; 96374; 99285; 70450; 71046; 74177; 81003; 81015; 82248; 83880; 84439; 84443; 84484; 85025; 85610; 85730; 93010; J2765; J3490

== ENCOUNTER 2019-01-02 15:22 | Outpatient (REF) | payer MEDICARE, OTHER, MEDICAID, SELFPAY ==
[2019-01-02 21:04] LABS: Bilirubin Negative (Negative); Blood Moderate (Negative); Clarity Clear (Clear); Glucose 500 mg/dL (Negative); Ketones Negative (Negative); Leukocyte Esterase Negative (Negative); Nitrite Negative (Negative); Specific Gravity 1.025 (1.005-1.025); Urobilinogen 0.2 EU/dL (Up TO 0.2)
[2019-01-02 21:14] LABS: Bacteria Rare HPF (Negative); C & S Indicated? No; Casts 3-5 Hyaline LPF (Negative); Crystals Negative HPF (Negative); Epithelial Cells Negative HPF (Negative); Mucus Negative (Negative); Other Cells Rare Yeast (Negative); WBC 0-2 HPF (0-5)
== END 2019-01-02 15:42 ==
LOC: NCHCN 15:22
PROVIDERS: PCP Registered Nurse; Visit Provider Nurse Practitioner Family
DX: R82.90 Unspecified abnormal findings in urine (principal)
CPT/HCPCS: 81003; 81015

== ENCOUNTER → 2019-01-07 13:17 | Outpatient (BNVA) | payer MEDICARE, OTHER, MEDICAID, SELFPAY | PROVIDERS: PCP Registered Nurse; Referring Provider Registered Nurse; Visit Provider Psychiatry & Neurology Neurology | DX: I69.331 Monoplegia of upper limb following cerebral infarction affecting right dominant side (principal); Z09 Encounter for follow-up examination after completed treatment for conditions other than malignant neoplasm; I25.810 Atherosclerosis of coronary artery bypass graft(s) without angina pectoris; K92.1 Melena; I10 Essential (primary) hypertension; E11.65 Type 2 diabetes mellitus with hyperglycemia; E11.42 Type 2 diabetes mellitus with diabetic polyneuropathy | CPT/HCPCS: 99214 ==

== ENCOUNTER 2019-02-14 03:52 | Emergency (ER) | payer MEDICARE, MEDICAID, SELFPAY ==
[2019-02-14 04:06] VITALS: BP 128/69; PULSE 80; RESP 20; TEMP 36.4; O2SAT 98
--- NOTE | 2019-02-14 04:22 | ED.GENADUL_ITS ---
Discharge Plan Disposition Patient Disposition: HOME Condition: Good Discharge Details Chief Complaint: Diabetes Clinical Impression: Viral URI with cough, Hyperglycemia without ketosis Primary Care Provider: ALEXUS LAN ED Provider: Jaylen España Orange Meds and New Rx's Prescriptions: New benzonatate [Tessalon Perles] 100 mg capsule 100 mg PO TID PRN (Reason: cough) Qty: 15 RF: 0 Continued mirtazapine 15 mg tablet 15 mg PO DAILY RF: 0 cholecalciferol (vitamin D3) 1,000 UNIT capsule 1,000 unit PO DAILY RF: 0 fluticasone propion-salmeterol [Advair Diskus] 1 EACH blister with device 1 puff Inhalation BID RF: 0 ProAir RespiClick 90 MCG aerosol powdr breath activated 90 mcg Inhalation Q4H PRN RF: 0 tamsulosin 0.4 MG capsule 0.4 mg PO DAILY RF: 0 Novolog Flexpen U-100 Insulin 100 UNIT/1 ML insulin pen See Rx Instructions .ROUTE .COMPLEX RF: 0 ezetimibe [Zetia] 10 MG tablet 10 mg PO QAM RF: 0 escitalopram oxalate [Lexapro] 20 MG tablet 20 mg PO QAM RF: 0 isosorbide mononitrate 120 MG tablet extended release 24 hr 120 mg PO QAM RF: 0 furosemide 40 MG tablet 40 mg PO DAILY RF: 0 atorvastatin [Lipitor] 80 MG tablet 80 mg PO HS RF: 0 ropinirole 2 MG tablet 2 mg PO HS RF: 0 nitroglycerin [Nitrostat] 0.4 MG tablet, sublingual 0.4 mg Sublingual PRN PRNRF: 0 multivitamin [Daily Multi-Vitamin] 1 EACH tablet 2 tab PO QAM RF: 0 metoprolol succinate 100 MG tablet extended release 24 hr 100 mg PO DAILY RF: 0 Lantus Solostar U-100 Insulin 100 UNIT/ML insulin pen 42 unit SQ BID RF: 0 omeprazole 20 MG capsule,delayed release(DR/EC) 40 mg PO BID Qty: 0 RF: 0 meclizine 25 MG tablet 25 mg PO Q8H PRN (Reason: Vertigo) Qty: 20 RF: 0 gabapentin 300 mg Capsule 300 mg PO HS RF: 0 levothyroxine 175 mcg Tablet 175 mcg PO DAILY@0600 Qty: 30 RF: 0 clopidogrel [Plavix] 75 mg Tablet 75 mg PO DAILY Qty: 30 RF: 0 metformin 500 mg Tablet 500 mg PO BID RF: 0 Slow-Mag 71.5 mg Tablet,Delayed Release (Dr/Ec) 71.5 mg PO DAILY RF: 0 Discharge Instructions Additional Instructions: Please monitor your blood sugars and use your NovoLog sliding scale as directed. Do not take with breakfast as we just gave you regular insulin. You may use your pro-air inhaler every 4-6 hours while ill with your cold. Tessalon if needed for cough. Follow-up with your primary care doctor next week. Return to ED for persistent elevated blood sugars, vomiting, high fever, increasing shortness of breath, chest pain, confusion, other concerns or problems. Referrals: ALEXUS LAN NP [Primary Care Provider] - Medical Decision Making Patient presenting with complaint of cough and high blood sugar. Vital signs are normal. He does not appear to be in any distress. Few scattered wheezes on lung exam. Blood sugar here over [address] IV to give her a liter of fluid and check BMP. Will receive DuoNeb and Tessalon. Will obtain chest x-ray. Patient's cough is better with a DuoNeb and Tessalon. Laboratory studies with a glucose of 442. He has no anion gap and his carbon dioxide is normal. After a liter of LR his sugar is 400. On further discussion patient tells me that around 4:00 this morning he did take his Lantus. He has not taken any NovoLog. We will give him 10 of regular insulin subcu. He will not use NovoLog this morning. He will recheck his blood sugar and use the NovoLog based upon his sliding scale at lunch. He will get the prescription for Tessalon. He is told that he may use his pro-air inhaler every 4-6 hours while he is sick with a cold. Follow-up with primary care next week. Return to ED for increasing shortness of breath, high fever, persistent high sugars, other concerns. Lab Data Lab results reviewed: Yes I reviewed the patient's lab results. HPI General Mode of arrival: ambulatory . Date/Time Provider Initiated Documentation: 02/14/19 04:21 . Limitations to Documentation: no limitations . Information obtained by: patient and RN notes reviewed . HPI Narrative: Patient presents to ED with complaint of elevated blood sugar and cough. Patient reports a dry cough for about 2 to 3 days now. He has a sore throat from coughing so much. Has some congestion. No real trouble breathing. No fever that he is aware of. Mild shortness of breath with exertion. No chest pain. He has been using cough drops that were not sugar-free. He has been taking his insulin. Reports his blood sugar being high this morning. He has not taken any insulin yet this morning. He has some nausea but no vomiting. There is no abdominal pain. Related Data Home Medications Medication Instructions Recorded Confirmed atorvastatin [Lipitor] 80 mg PO HS 01/05/14 02/14/19 escitalopram oxalate [Lexapro] 20 mg PO QAM 01/05/14 02/14/19 ezetimibe [Zetia] 10 mg PO QAM 01/05/14 02/14/19 furosemide 40 mg PO DAILY 01/05/14 02/14/19 isosorbide mononitrate 120 mg PO QAM 01/05/14 02/14/19 multivitamin [Daily Multi-Vitamin] 2 tab PO QAM 01/05/14 02/14/19 nitroglycerin [Nitrostat] 0.4 mg SUBLINGUAL PRN PRN 01/05/14 02/14/19 ropinirole 2 mg PO HS 01/05/14 01/07/19 cholecalciferol (vitamin D3) 1,000 unit PO DAILY 04/21/15 02/14/19 meclizine 25 mg PO Q8H PRN #20 tab 11/08/16 02/14/19 Lantus Solostar U-100 Insulin 42 unit SQ BID 04/02/17 02/14/19 metoprolol succinate 100 mg PO DAILY 04/02/17 02/14/19 omeprazole 40 mg PO BID #0 tab-cap 04/02/17 02/14/19 ProAir RespiClick 90 mcg INHALATION Q4H PRN 07/10/17 02/14/19 fluticasone propion-salmeterol 1 puff INHALATION BID disk 07/10/17 02/14/19 [Advair Diskus] Novolog Flexpen U-100 Insulin See Rx Instructions .ROUTE .COMPLEX 07/20/1708/28 tamsulosin 0.4 mg PO DAILY tab-cap 07/20/17 01/07/19 mirtazapine 15 mg tablet 15 mg PO DAILY 07/23/18 02/14/19 gabapentin 300 mg PO HS 10/04/18 02/14/19 clopidogrel [Plavix] 75 mg PO DAILY #30 tab 10/16/18 02/14/19 levothyroxine 175 mcg PO DAILY@0600 #30 tab 10/16/18 02/14/19 Slow-Mag 71.5 mg PO DAILY 10/18/18 02/14/19 metformin 500 mg PO BID 10/18/18 02/14/19 benzonatate [Tessalon Perles] 100 mg PO TID PRN #15 cap 02/14/19 Previous Rx's Medication Instructions Recorded meclizine 25 mg PO Q8H PRN #20 tab 11/08/16 omeprazole 40 mg PO BID #0 tab-cap 04/02/17 clopidogrel [Plavix] 75 mg PO DAILY #30 tab 10/16/18 levothyroxine 175 mcg PO DAILY@0600 #30 tab 10/16/18 benzonatate [Tessalon Perles] 100 mg PO TID PRN #15 cap 02/14/19 Allergies Allergy/AdvReac Type Severity Reaction Status Date / Time No Known Allergies Allergy Unverified 01/07/19 13:31 General Stated Complaint: Diabetes DAYLIN: 3 Review of Systems Narrative: As documented in HPI otherwise negative as below. Const: no fever, chills, weakness Resp: cough, mild SOB; no pleuritic pain CV: no CP, diaphoresis, edema, syncope GI: nausea; no abdominal pain, vomiting, diarrhea Neuro: no headache, numbness, focal weakness, confusion PFSH Medical History Aortic valve replaced CAD (coronary artery disease) COPD (chronic obstructive pulmonary disease) CVA (cerebral vascular accident) (Chronic) Diabetic neuropathy DM (diabetes mellitus) HTN (hypertension) Hypothyroidism IVETTE (obstructive sleep apnea) Pacemaker Renal insufficiency Surgical History Coronary Artery Bypass Gaft (CABG) Coronary Stent CABGx4 Pacemaker Replacement of aortic valve Social History Smoking/Tobacco Use Status: Never Alcohol Intake: former Drug use: Never Substance use type: does not use Details: Pt reports no alcohol since his heart attack 1995 Household members: none Housing: other Details: [facility] Number of Children: 2 current occupation: Lives at [facility]. Disabled since . Seatbelt use: always Do you feel safe at home: Yes Do you feel safe in your relationship?: Yes Additional Social history: lives alone, [facility] comes in to assiste pt. Exam Narrative Exam Narrative: Vitals: Afebrile. Normal vital signs and normal room air pulse ox. Const: Obese male in NAD. HEENT: NC/AT. Normal facial exam. OP without erythema or exudate. Eyes: Normal conjunctiva and sclera. Neck: Supple. Trachea midline. Lungs: Normal respiratory effort. Lungs with just a few scattered wheezes. Cor: RRR with murmur. Good radial pulses. GI: Soft. NT/ND. No guarding or rebound. Neuro: A+O x 3. No gross motor or sensory deficit. Ext: No C/C. BLE edema. Skin: Warm and dry without rash. Course Vital Signs Vital signs: Vital Signs Temperature 97.6 F 02/14/19 04:06 Pulse 80 02/14/19 04:06 Respiratory Rate 20 02/14/19 04:06 Blood Pressure 128/69 02/14/19 04:06 Pulse Oximetry 98 02/14/19 04:06 Temperature 97.6 F 02/14/19 04:06 Temperature Source Temporal Artery Scan 02/14/19 04:06 Pulse 80 02/14/19 04:06 Respiratory Rate 20 02/14/19 04:06 Respiratory Effort Labored 02/14/19 04:18 Blood Pressure 128/69 02/14/19 04:06 Blood Pressure Position Supine 02/14/19 04:06 Pulse Oximetry 98 02/14/19 04:06 Oxygen Delivery Method Room Air 02/14/19 04:06 Oxygen Flow Rate 0 02/14/19 04:06 Pain Level 0 02/14/19 04:06
[2019-02-14] MEDS: Lactated Ringers 1,000 ML 1000 ML IV (04:51)
[2019-02-14] MEDS: Benzonatate 100 MG CAP PO (04:53)
[2019-02-14 04:54] LABS: Anion Gap 6.9 mmol/L (3-11); BUN 22 mg/dL (7-18); CO2 27.1 mmol/L (21.0-32.0); CREATININE 1.18 mg/dL (0.70-1.30); Calcium 8.8 mg/dL (8.5-10.1); Chloride 97 mmol/L (98-107); Glucose 442 mg/dL (74-106); Potassium 4.1 mmol/L (3.5-5.1); Sodium 131 mmol/L (136-145)
[2019-02-14] MEDS: Albuterol/Ipratropium 3 ML UPD VIAL UPD (04:54)
--- NOTE | 2019-02-14 05:03 | NUR.NOTE ---
Nursing Note: Radiology called for chest x ray.
--- NOTE | 2019-02-14 05:15 | DI.RAD_ITS ---
EXAM: XR CHEST 2V PA LATERAL INDICATION: cough. COMPARISON: No exams were available for comparison TECHNIQUE: 2D digital imaging was performed. FINDINGS: Heart size and pulmonary vasculature are within normal limits. Sternal wires are in place. Pacing w ires are in stable position. The lungs are clear. No effusions or pneumothoraces are present. Age- appropriate degenerative changes are seen in the spine. IMPRESSION: No acute pulmonary process.
[2019-02-14 05:24] VITALS: PULSE 79; RESP 1; RESP 18; RESP 8; O2SAT 99
--- NOTE | 2019-02-14 05:32 | DI.VRAD_ITS ---
PROCEDURE INFORMATION: Exam: XR Chest, 2 Views Exam date and time: 02/14/2019 5:14 AM Age: 68 years old Clinical history: Cough; Prior surgery; Surgery date: 6+ months TECHNIQUE: Imaging protocol: XR of the chest Views: 2 views. COMPARISON: CR XR CHEST 2V PA LATERAL 12/27/2018 11:13 PM FINDINGS: Lungs: Unremarkable. No consolidation. Pleural space: Unremarkable. No pleural effusion. No pneumothorax. Heart/Mediastinum: Unremarkable. No cardiomegaly. Bones/joints: Left chest wall pacing device and median sternotomy wires. IMPRESSION: No acute finding. Dictated and Authenticated by: Drake Peoples MD. Ordering:KARLO York MD
[2019-02-14] MEDS: Insulin REGULAR-Human 100 UNITS/ML UNIT 10 UNITS SC (06:05)
== END 2019-02-14 06:25 | disposition home or self-care (01) ==
PROVIDERS: Emergency Provider Emergency Medicine; PCP Registered Nurse
DX: E11.65 Type 2 diabetes mellitus with hyperglycemia (principal); Z79.4 Long term (current) use of insulin; J06.9 Acute upper respiratory infection, unspecified; R05 Cough; J44.9 Chronic obstructive pulmonary disease, unspecified
CPT/HCPCS: 36415; 80048; 94640; 96360; 96372; 99284; 71046; J7620

== ENCOUNTER 2019-03-18 23:32 | Outpatient (REF) | payer OTHER, MEDICAID, SELFPAY ==
[2019-03-18 22:33] LABS: Abs Immature Grans 0.01 k/cumm (0.0-0.09); Absolute Basophil Count 0.05 k/cumm (0.0-0.2); Absolute Eosinophil Count 0.09 k/cumm (0.0-0.7); Absolute Lymphocyte Count 1.82 k/cumm (1.2-3.4); Absolute Monocyte Count 0.48 k/cumm (0.11-0.7); Absolute Neutrophil Count 2.97 k/cumm (1.2-6.7); Basophils % 0.9; Eosinophils % 1.7; HCT 39.4 % (40.0-50.0); HGB 13.4 g/dL (13.5-17.5); Immature Grans % 0.2 %; Lymphocytes % 33.6; Mean Corpuscular Volume 85.3 fL (80-95); Mean Platelet Volume 10.1 fL (8.0-11.0); Monocytes % 8.9; Neutrophils % 54.7; Platelet Count 268 x1000/uL (130-400); RBC 4.62 m/cumm (4.50-6.00); RBC Distribution Width 13.8 % (11.8-14.1); White Blood Cell Count 5.42 k/cumm (4.4-10.8)
[2019-03-18 22:55] LABS: ALT 14 U/L (16-63); AST 15 U/L (15-37); Albumin 2.7 g/dL (3.4-5.0); Alkaline Phosphatase 75 U/L (46-116); Anion Gap 10.6 mmol/L (3-11); BUN 23 mg/dL (7-18); Bilirubin, Total 0.8 mg/dL (0.2-1.0); CO2 27.4 mmol/L (21.0-32.0); CREATININE 1.36 mg/dL (0.70-1.30); Calcium 9.1 mg/dL (8.5-10.1); Chloride 95 mmol/L (98-107); Estimated GFR 52.43 (mL/min/1.73m2); Glucose 456 mg/dL (74-106); Potassium 4.5 mmol/L (3.5-5.1); Sodium 133 mmol/L (136-145); TSH 27.39 uIU/mL (0.36-3.74)
== END 2019-03-18 23:52 ==
LOC: NCHCN 23:32
PROVIDERS: PCP Registered Nurse; Visit Provider Registered Nurse
DX: E03.9 Hypothyroidism, unspecified (principal); F32.9 Major depressive disorder, single episode, unspecified; E11.9 Type 2 diabetes mellitus without complications; Z91.81 History of falling
CPT/HCPCS: 80053; 84443; 85025

== ENCOUNTER 2019-03-20 03:31 | Emergency (ER) | payer OTHER, MEDICAID, SELFPAY ==
[2019-03-20] VITALS (12 sets, daily range): BP systolic 101–116; BP diastolic 47–56; PULSE 62–76; RESP 16; TEMP 36; O2SAT 94–99
--- NOTE | 2019-03-20 02:38 | ED.GENADUL_ITS ---
Discharge Plan Disposition Patient Disposition: HOME Condition: Good Discharge Details Chief Complaint: Nk/Back Pain Clinical Impression: Lumbago, Chronic hyperglycemia Primary Care Provider: ALEXUS LAN ED Provider: Torsten Diane Home Meds and New Rx's Prescriptions: New acetaminophen [Mapap Extra Strength] 500 MG tablet 1,000 mg PO Q6H 5 Days Qty: 60 RF: 0 lidocaine [Lidoderm] 1 PATCH patch 1 patch Topical Q24H Qty: 4 RF: 0 No Action mirtazapine 15 mg tablet 15 mg PO DAILY RF: 0 cholecalciferol (vitamin D3) 1,000 UNIT capsule 1,000 unit PO DAILY RF: 0 fluticasone propion-salmeterol [Advair Diskus] 1 EACH blister with device 1 puff Inhalation BID RF: 0 ProAir RespiClick 90 MCG aerosol powdr breath activated 90 mcg Inhalation Q4H PRN RF: 0 tamsulosin 0.4 MG capsule 0.4 mg PO DAILY RF: 0 Novolog Flexpen U-100 Insulin 100 UNIT/1 ML insulin pen See Rx Instructions .ROUTE .COMPLEX RF: 0 ezetimibe [Zetia] 10 MG tablet 10 mg PO QAM RF: 0 escitalopram oxalate [Lexapro] 20 MG tablet 20 mg PO QAM RF: 0 isosorbide mononitrate 120 MG tablet extended release 24 hr 120 mg PO QAM RF: 0 furosemide 40 MG tablet 40 mg PO DAILY RF: 0 atorvastatin [Lipitor] 80 MG tablet 80 mg PO HS RF: 0 ropinirole 2 MG tablet 2 mg PO HS RF: 0 nitroglycerin [Nitrostat] 0.4 MG tablet, sublingual 0.4 mg Sublingual PRN PRNRF: 0 multivitamin [Daily Multi-Vitamin] 1 EACH tablet 2 tab PO QAM RF: 0 metoprolol succinate 100 MG tablet extended release 24 hr 100 mg PO DAILY RF: 0 Lantus Solostar U-100 Insulin 100 UNIT/ML insulin pen 42 unit SQ BID RF: 0 omeprazole 20 MG capsule,delayed release(DR/EC) 40 mg PO BID Qty: 0 RF: 0 meclizine 25 MG tablet 25 mg PO Q8H PRN (Reason: Vertigo) Qty: 20 RF: 0 gabapentin 300 mg Capsule 300 mg PO HS RF: 0 levothyroxine 175 mcg Tablet 175 mcg PO DAILY@0600 Qty: 30 RF: 0 clopidogrel [Plavix] 75 mg Tablet 75 mg PO DAILY Qty: 30 RF: 0 metformin 500 mg Tablet 500 mg PO BID RF: 0 Slow-Mag 71.5 mg Tablet,Delayed Release (Dr/Ec) 71.5 mg PO DAILY RF: 0 benzonatate [Tessalon Perles] 100 mg capsule 100 mg PO TID PRN (Reason: cough) Qty: 15 RF: 0 Discharge Instructions Instructions: Low Back Strain (ED) Additional Instructions: At this time your symptoms are consistent and concerning for a muscle sprain. Please continue to use the Lidoderm patch, Tylenol. Use a heating pad on your back. If your symptoms do not improve over time he may require additional imaging or evaluation. If you notice any worsening of your symptoms, or any new symptoms such as vomiting, diarrhea, fever, chills, shortness of breath, chest pain, numbness, weakness, or fainting , please return immediately to the emergency department for reevaluation. Please follow up with your primary care provider as soon as possible for reassessment and reevaluation. As always, it was a pleasure participating in your medical care today. Referrals: ALEXUS LAN NP [Primary Care Provider] - Medical Decision Making This is a pleasant 68-year-old male with a past medical history of pacemaker defibrillator, coronary artery disease with CABG, COPD, diabetes, depression, irritable bowel syndrome, hypothyroidism, chronic anemia, who presents for back pain by EMS. Patient states that for the last 2 to 3 days he has had mild right-sided back/flank pain. Made worse with lying flat or sitting upright. He denies any associated saddle anesthesia numbness or tingling in his groin, or new weakness or change in strength for his lower extremities. No bowel or bladder incontinence that is new. He denies a acute falls or trauma. Exam demonstrates reproducible right lower paraspinal tenderness over the right lumbar region, as well as mild right CVA tenderness. No abdominal tenderness though. No genital or testicular tenderness. Rectal exam normal. No clinical evidence of neurovascular compromise or cauda equina syndrome. Suspect mu sculoskeletal etiology however urolithiasis is less likely but on the differential. Get basic labs, UA, treat with NSAIDs Lidoderm patch and reassess. 3:57 AM Laboratory work-up has returned, CBC normal, metabolic panel demonstrates chronic renal deficiency, sugar is high at 534, which is actually fairly normal for the patient. However we will give some subcu insulin at 15 units here to help mitigate this. Urinalysis shows no evidence of infection, 3-5 RBCs, but no evidence of significant hematuria. Symptoms and consistent with kidney stone. Patient continues to show no pain at McBurney's point, negative Tanner sign, no genital pain. Symptoms appear to be localized to the right paraspinal musculature region. Patient has no history of trauma or falls recently to suggest osseous injury. With the symptoms being notably muscular in nature, being worse with lying flat bending, signs and symptoms are clinically consistent with muscle spasm. Did discuss imaging with the patient, and with no current clinical indication after weighing risks and benefits through shared decision making process we will hold off on any additional imaging. Bladder scan demonstrates less than 50 cc post void. With no evidence of saddle anesthesia, bowel or bladder incontinence, or other abnormality cauda equina syndrome is clinically inconsistent. Signs and symptoms at this time appear clinically consistent with a right-sided muscle spasm. Recommend continuation of acetaminophen, Lidoderm patch. Discussed the importance of a heating pad and close follow-up with PCP. I have extensively reviewed the treatment plan and discharge instructions with the patient. I have addressed all patient concerns at this time. The patient was made aware of what symptoms to monitor for that would warrant a return to the emergency department. Discussed the plan with the patient, they demonstrate verbal understanding and agreement with our assessment and plan at this time. HPI General Date/Time Provider Initiated Documentation: 03/20/19 03:31 . HPI Narrative: This is a pleasant 68-year-old male with a past medical history of pacemaker defibrillator, coronary artery disease with CABG, COPD, diabetes, depression, irritable bowel syndrome, hypothyroidism, chronic anemia, who presents today for evaluation of right lower back pain. Patient states that it is been present for the last 2 to 3 days, he describes it as aching and stabbing. He denies any tearing or ripping sensations. Pain is made worse with bending and lying flat. Improved by nothing. He has not been taking any NSAIDs. He did see his primary care provider less than 24 hours ago. And at that time he states that nothing additional was done in regards to this. He denies any hematuria, urinary frequency, or new bowel or bladder incontinence. He denies any change in strength of his lower extremities, or numbness or tingling in his groin. He denies any fever, chills, or recent falls or trauma. He has no other complaints at this time. Related Data Home Medications Medication Instructions Recorded Confirmed atorvastatin [Lipitor] 80 mg PO HS 01/05/14 03/20/19 escitalopram oxalate [Lexapro] 20 mg PO QAM 01/05/14 03/20/19 ezetimibe [Zetia] 10 mg PO QAM 01/05/14 03/20/19 furosemide 40 mg PO DAILY 01/05/14 03/20/19 isosorbide mononitrate 120 mg PO QAM 01/05/14 02/14/19 multivitamin [Daily Multi-Vitamin] 2 tab PO QAM 01/05/14 03/20/19 nitroglycerin [Nitrostat] 0.4 mg SUBLINGUAL PRN PRN 01/05/14 03/20/19 ropinirole 2 mg PO HS 01/05/14 03/20/19 cholecalciferol (vitamin D3) 1,000 unit PO DAILY 04/21/15 03/20/19 meclizine 25 mg PO Q8H PRN #20 tab 11/08/16 02/14/19 Lantus Solostar U-100 Insulin 42 unit SQ BID 04/02/17 03/20/19 metoprolol succinate 100 mg PO DAILY 04/02/17 03/20/19 omeprazole 40 mg PO BID #0 tab-cap 04/02/17 03/20/19 ProAir RespiClick 90 mcg INHALATION Q4H PRN 07/10/17 03/20/19 fluticasone propion-salmeterol 1 puff INHALATION BID disk 07/10/17 02/14/19 [Advair Diskus] Novolog Flexpen U-100 Insulin See Rx Instructions .ROUTE .COMPLEX 07/20/17 03/20/19 tamsulosin 0.4 mg PO DAILY tab-cap 07/20/17 03/20/19 mirtazapine 15 mg tablet 15 mg PO DAILY 07/23/18 03/20/19 gabapentin 300 mg PO HS 10/04/18 03/20/19 clopidogrel [Plavix] 75 mg PO DAILY #30 tab 10/16/18 03/20/19 levothyroxine 175 mcg PO DAILY@0600 #30 tab 10/16/18 03/20/19 Slow-Mag 71.5 mg PO DAILY 10/18/18 03/20/19 metformin 500 mg PO BID 10/18/18 03/20/19 benzonatate [Tessalon Perles] 100 mg PO TID PRN #15 cap 02/14/19 acetaminophen [Mapap Extra 1,000 mg PO Q6H 5 Days #60 tab 03/20/19 Strength] lidocaine [Lidoderm] 1 patch TOPICAL Q24H #4 patch 03/20/19 Previous Rx's Medication Instructions Recorded meclizine 25 mg PO Q8H PRN #20 tab 11/08/16 omeprazole 40 mg PO BID #0 tab-cap 04/02/17 clopidogrel [Plavix] 75 mg PO DAILY #30 tab 10/16/18 levothyroxine 175 mcg PO DAILY@0600 #30 tab 10/16/18 benzonatate [Tessalon Perles] 100 mg PO TID PRN #15 cap 02/14/19 acetaminophen [Mapap Extra 1,000 mg PO Q6H 5 Days #60 tab 03/20/19 Strength] lidocaine [Lidoderm] 1 patch TOPICAL Q24H #4 patch 03/20/19 Allergies Allergy/AdvReac Type Severity Reaction Status Date / Time No Known Allergies Allergy Unverified 03/20/19 02:51 General DAYLIN: 3 Review of Systems All systems reviewed & are unremarkable except as noted in HPI and below PFSH Social History Smoking/Tobacco Use Status: Never Alcohol Intake: former Drug use: Never Substance use type: does not use Details: Pt reports no alcohol since his heart attack 1995 Household members: none Housing: other Details: [facility] Number of Children: 2 current occupation: Lives at [facility]. Disabled since . Seatbelt use: always Do you feel safe at home: Yes Do you feel safe in your relationship?: Yes Additional Social history: lives alone, area on [facility] comes in to assiste pt. Exam Narrative Exam Narrative: 1.Const: Well-nourished, Well-developed, appearing stated age 2.Eyes: PERRL, no conjunctival injection, and symmetrical lids. 3.ENT: Atraumatic external nose and ears. Moist MM. Neck: Symmetric, trachea midline, No thyromegaly. 4.CVS: +S1/S2, No murmurs or gallops. Peripheral pulses 2+ and equal in all extremities. Brisk capillary refill in all extremities. 5.RESP: Unlabored respiratory effort. Clear to auscultation bilaterally. No wheezes rales or rhonchi 6.GI: Soft, Nontender/Nondistended, No hepatosplenomegaly. No guarding or rebound. No pain on palpation of the right lower right mid to right upper regions of the abdomen. No tenderness on the left. 7.MSK: Normocephalic/Atraumatic, Extremities w/o deformity or ttp No cyanosis or clubbing, Normal movement of all extremities No midline tenderness to palpation over the CTLS spine. Minimal right paraspinal right CVA tenderness. Normal ROM in flexion, extension, side bend, and rotation. Patient has +5 out of 5 strength in the lower extremities in d orsiflexion and plantarflexion, knee flexion and extension, hip flexion and extension. Normal strength for dorsiflexion and plantar flexion of the great toe bilaterally. There is +2 over 2 dorsalis pedis pulses bilaterally. There is normal sensation to the skin with light touch at the foot, knee, and hip. Normal saddle sensation. Good sensation over the deep sural nerve area bilaterally. Rectal exam demonstrates good rectal tone and perirectal sensation. Lower extremity reflexes intact. 8.Skin: Warm, Dry. No rashes or lesions. 9.Neuro: map clerk II-XII grossly intact. Sensation grossly intact, no focal neurologic deficits. 10.Psych: (AAO) x3. Appropriate mood and affect
--- NOTE | 2019-03-20 02:49 | NUR.NOTE ---
Nursing Note: Pt states his blood sugar at home was 536 around 1930 tonight. States he took 54 units of lantus at that time.
[2019-03-20] MEDS: Lidocaine 5% Patch 1 PATCH TP (02:55)
[2019-03-20] MEDS: Acetaminophen 500 MG TAB 1000 MG PO (02:56)
[2019-03-20] MEDS: Ketorolac 15 MG/ML VIAL IVP (02:57)
[2019-03-20 02:58] LABS: Abs Immature Grans 0.01 k/cumm (0.0-0.09); Absolute Basophil Count 0.07 k/cumm (0.0-0.2); Absolute Eosinophil Count 0.09 k/cumm (0.0-0.7); Absolute Lymphocyte Count 2.44 k/cumm (1.2-3.4); Absolute Monocyte Count 0.57 k/cumm (0.11-0.7); Absolute Neutrophil Count 2.99 k/cumm (1.2-6.7); Basophils % 1.1; Eosinophils % 1.5; HGB 13.2 g/dL (13.5-17.5); Immature Grans % 0.2 %; Lymphocytes % 39.5; Mean Corp. HGB Concentration 33.8 g/dL (32.0-36.0); Mean Corpuscular Hemoglobin 29.2 pg (27.0-33.0); Mean Corpuscular Volume 86.3 fL (80-95); Mean Platelet Volume 9.5 fL (8.0-11.0); Monocytes % 9.2; Neutrophils % 48.5; Platelet Count 250 x1000/uL (130-400); RBC 4.52 m/cumm (4.50-6.00); RBC Distribution Width 13.6 % (11.8-14.1); White Blood Cell Count 6.17 k/cumm (4.4-10.8)
--- NOTE | 2019-03-20 03:06 | NUR.NOTE ---
Nursing Note: Urinal at bedside. Pt instructed to call when he is ready to void. Call light handed to patient
[2019-03-20 03:10] LABS: ALT 11 U/L (16-63); AST 15 U/L (15-37); Albumin 2.6 g/dL (3.4-5.0); Alkaline Phosphatase 68 U/L (46-116); Anion Gap 8.7 mmol/L (3-11); BUN 19 mg/dL (7-18); Bilirubin, Total 1.1 mg/dL (0.2-1.0); CO2 29.3 mmol/L (21.0-32.0); CREATININE 1.46 mg/dL (0.70-1.30); Chloride 96 mmol/L (98-107); Estimated GFR 48.31 (mL/min/1.73m2); Potassium 4.1 mmol/L (3.5-5.1); Sodium 134 mmol/L (136-145); Total Protein 6.6 g/dL (6.4-8.2)
[2019-03-20 03:28] LABS: Glucose 534 mg/dL (74-106)
[2019-03-20 03:34] LABS: Bilirubin Negative (Negative); Blood Trace-intact (Negative); Clarity Clear (Clear); Glucose 500 mg/dL (Negative); Ketones Negative (Negative); Leukocyte Esterase Negative (Negative); Nitrite Negative (Negative); Urobilinogen 0.2 EU/dL (Up TO 0.2); pH 5.5 (5-8)
[2019-03-20 03:44] LABS: Bacteria Rare HPF (Negative); Epithelial Cells Rare HPF (Negative); WBC 0-2 HPF (0-5)
[2019-03-20 03:45] LABS: C & S Indicated? No
[2019-03-20] MEDS: Insulin REGULAR-Human 100 UNITS/ML UNIT 15 UNITS SC (04:08)
--- NOTE | 2019-03-20 05:06 | NUR.NOTE ---
Nursing Note: RCT called for ride home
== END 2019-03-20 06:20 | disposition home or self-care (01) ==
LOC: ER 04:52
PROVIDERS: Emergency Provider Student in an Organized Health Care Education/Training Program; PCP Registered Nurse
DX: E11.65 Type 2 diabetes mellitus with hyperglycemia (principal); Z79.4 Long term (current) use of insulin; J44.9 Chronic obstructive pulmonary disease, unspecified; M54.5 Low back pain
CPT/HCPCS: 80053; 96372; 96374; 96375; 99285; 81003; 81015; 85025; 99284; J1885

== ENCOUNTER 2019-05-07 16:47 | Outpatient (REF) | payer OTHER, MEDICAID, SELFPAY ==
[2019-05-07 22:15] LABS: HCT 38.4 % (40.0-50.0); Mean Corp. HGB Concentration 33.9 g/dL (32.0-36.0); Mean Corpuscular Hemoglobin 29.4 pg (27.0-33.0); Mean Corpuscular Volume 86.9 fL (80-95); Mean Platelet Volume 10.4 fL (8.0-11.0); Platelet Count 279 x1000/uL (130-400); RBC 4.42 m/cumm (4.50-6.00); RBC Distribution Width 13.8 % (11.8-14.1); White Blood Cell Count 6.08 k/cumm (4.4-10.8)
[2019-05-07 22:21] LABS: ALT 12 U/L (16-63); AST 12 U/L (15-37); Albumin 2.8 g/dL (3.4-5.0); Alkaline Phosphatase 76 U/L (46-116); Anion Gap 8.1 mmol/L (3-11); BUN 19 mg/dL (7-18); Bilirubin, Total 0.8 mg/dL (0.2-1.0); CO2 27.9 mmol/L (21.0-32.0); CREATININE 1.23 mg/dL (0.70-1.30); Calcium 8.5 mg/dL (8.5-10.1); Chloride 103 mmol/L (98-107); Estimated GFR 58.87 (mL/min/1.73m2); Glucose 322 mg/dL (74-106); Magnesium 1.3 mg/dL (1.8-2.4); Potassium 3.9 mmol/L (3.5-5.1); Sodium 139 mmol/L (136-145)
== END 2019-05-07 17:07 ==
LOC: NCHCN 16:47
PROVIDERS: PCP Registered Nurse; Visit Provider Registered Nurse
DX: E11.9 Type 2 diabetes mellitus without complications (principal); N28.9 Disorder of kidney and ureter, unspecified; D64.9 Anemia, unspecified; E80.6 Other disorders of bilirubin metabolism
CPT/HCPCS: 80053; 85027; 83735

== ENCOUNTER → 2019-05-19 10:39 | Outpatient (BNVA) | payer OTHER, MEDICAID, SELFPAY | PROVIDERS: PCP Registered Nurse; Referring Provider Registered Nurse; Visit Provider Nurse Practitioner Gerontology | DX: R31.9 Hematuria, unspecified (principal); R35.0 Frequency of micturition; I10 Essential (primary) hypertension; J44.9 Chronic obstructive pulmonary disease, unspecified; E11.42 Type 2 diabetes mellitus with diabetic polyneuropathy | CPT/HCPCS: 99214 ==

== ENCOUNTER 2019-05-29 14:45 | Emergency (ER) | payer OTHER, MEDICAID, SELFPAY ==
[2019-05-29] VITALS (31 sets, daily range): BP systolic 121–208; BP diastolic 57–109; PULSE 68–91; RESP 14–27; TEMP 36.4; O2SAT 93–100
--- NOTE | 2019-05-29 14:43 | W.ED.GENAD ---
Discharge Plan Disposition Patient Disposition: HOME Condition: Stable Discharge Details Chief Complaint: Diabetes Clinical Impression: Hyperglycemia, Generalized weakness Primary Care Provider: ALEXUS LAN ED Provider: Mounika Persaud Home Meds and New Rx's Prescriptions: Continued mirtazapine 15 mg tablet 15 mg PO DAILY RF: 0 cholecalciferol (vitamin D3) 1,000 UNIT capsule 1,000 unit PO DAILY RF: 0 fluticasone propion-salmeterol [Advair Diskus] 1 EACH blister with device 1 puff Inhalation BID RF: 0 ProAir RespiClick 90 MCG aerosol powdr breath activated 90 mcg Inhalation Q4H PRN RF: 0 tamsulosin 0.4 MG capsule 0.4 mg PO DAILY RF: 0 insulin aspart U-100 [Novolog Flexpen U-100 Insulin] 100 UNIT/1 ML insulin pen See Rx Instructions .ROUTE .COMPLEX RF: 0 ketorolac 0.4 % drops 1 drp OP QID RF: 0 chlorhexidine gluconate [Periogard] 0.12 % mouthwash 15 ml MM BID RF: 0 (DME) nebulizers Misc See Rx Instructions .ROUTE .MEDSUPPLY Qty: 1 RF: 0 (DME) oxygen-air delivery systems Device See Rx Instructions .ROUTE .MEDSUPPLY Qty: 1 RF: 0 nystatin 100,000 unit/gram powder 1 applic TP TID RF: 0 Shingrix Adjuvant Component-PF Suspension IM RF: 0 clotrimazole 1 % cream 1 applic TP BID RF: 0 mometasone [Nasonex] 50 mcg/actuation spray,non-aerosol 2 spray ROSE MARY DAILY RF: 0 mometasone [Nasonex] 50 mcg/actuation spray,non-aerosol 2 spray ROSE MARY DAILY RF: 0 fluticasone propionate 50 mcg/actuation spray,suspension 2 spray ROSE MARY DAILY RF: 0 Levemir FlexTouch U-100 Insuln 100 unit/mL (3 mL) insulin pen 54 unit SC .am and pm RF: 0 metformin 500 mg tablet 500 mg PO BID RF: 0 budesonide-formoterol [Symbicort] 80-4.5 mcg/actuation HFA aerosol inhaler 2 puff IH Q12H RF: 0 clopidogrel [Plavix] 75 mg tablet 75 mg PO DAILY RF: 0 losartan 100 mg tablet 100 mg PO DAILY RF: 0 hydrocortisone 0.5 % cream 1 applic TP BID PRNRF: 0 levothyroxine 25 mcg tablet 25 mcg PO DAILY RF: 0 ezetimibe [Zetia] 10 MG tablet 10 mg PO QAM RF: 0 isosorbide mononitrate 120 MG tablet extended release 24 hr 120 mg PO QAM RF: 0 furosemide 40 MG tablet 40 mg PO DAILY RF: 0 atorvastatin [Lipitor] 80 MG tablet 80 mg PO HS RF: 0 ropinirole 2 MG tablet 2 mg PO HS RF: 0 nitroglycerin [Nitrostat] 0.4 MG tablet, sublingual 0.4 mg Sublingual PRN PRNRF: 0 multivitamin [Daily Multi-Vitamin] 1 EACH tablet 2 tab PO QAM RF: 0 metoprolol succinate 100 MG tablet extended release 24 hr 100 mg PO DAILY RF: 0 Lantus Solostar U-100 Insulin 100 UNIT/ML insulin pen 42 unit SQ BID RF: 0 omeprazole 20 MG capsule,delayed release(DR/EC) 40 mg PO BID Qty: 0 RF: 0 gabapentin 300 mg Capsule 400 mg PO HS RF: 0 levothyroxine 175 mcg Tablet 175 mcg PO DAILY@0600 Qty: 30 RF: 0 clopidogrel [Plavix] 75 mg Tablet 75 mg PO DAILY Qty: 30 RF: 0 metformin 500 mg Tablet 500 mg PO BID RF: 0 Slow-Mag 71.5 mg Tablet,Delayed Release (Dr/Ec) 71.5 mg PO DAILY RF: 0 lidocaine [Lidoderm] 1 PATCH patch 1 patch Topical Q24H Qty: 4 RF: 0 polyethylene glycol 3350 [Miralax] 17 gram Powder In Packet 17 g PO DAILY RF: 0 levothyroxine 175 mcg Tablet 175 mcg PO DAILY RF: 0 nitroglycerin [Nitrostat] 0.4 mg Tablet, Sublingual 0.4 mg sublingual PRN PRNRF: 0 fluoxetine 20 mg Capsule 20 mg PO DAILY RF: 0 Discharge Instructions Instructions: Weakness (ED), Diabetic Hyperglycemia (ED) Additional Instructions: Drink plenty of fluids and get plenty of rest. You should not be using a sliding scale for your insulin per your primary care doctor. Their recommendations for insulin is that you continue your Levemir 54 units twice daily and to take NovoLog 30 units 3 times daily. Call your primary care doctor's office tomorrow to schedule a follow-up appointment for reevaluation next week. Return to the emergency department if you develop any worsening or new concerning symptoms. Discharge Data Discharge Date/Time-TO BE ENTERED AT DEPARTURE: 05/29/19 18:00 Discharge Physician: Mounika Persaud Medical Decision Making [id number] -- 68-year-old male with a history of morbid obesity, anxiety, asthma, COPD, CAD, diabetes, hypertension, hyperlipidemia and ID presents for hyperglycemia of 535 and generalized weakness today at home. EKG on arrival notes a rate of 85, sinus, right bundle branch block and left anterior fascicular block with no acute ischemic change. Patient was able to ambulate from the ambulance stretcher to the ED stretcher bed without incident. Lungs clear. Abdomen soft nontender. No focal deficits. Fingerstick glucose 308. 1730 -- Screening labs obtained and note a normal white blood cell count and hemoglobin. Glucose 294. Magnesium 1.2. Potassium 3.1. Patient given 1 L IV fluids, and repleted potassium and magnesium. Urinalysis noted glucose and protein but no obvious infection. Repeat glucose 266 after fluids and patient meal. Case was discussed with care management who discussed with patient's primary care doctor who stated that patient is not supposed to be on sliding scale insulin. Per the primary care doctor, he is supposed to be on 54 units of lantus bid and 30 units SSI TID. Pt was informed of this plan. Pt feels good to go home. Advised to follow up with the primary care doctor for re-evaluation. Usual and customary return precautions given prior to discharge. Medical Records Medical records reviewed: Yes I reviewed the patient's medical records. Lab Data Lab results reviewed: Yes I reviewed the patient's lab results. Labs: Laboratory Tests Range/Units 05/29/19 05/29/19 05/29/19 15:06 15:06 15:18 WBC (4.4-10.8) k/cumm 5.02 RBC (4.50-6.00) m/cumm 4.67 Hgb (13.5-17.5) g/dL 13.8 Hct (40.0-50.0) % 40.7 MCV (80-95) fL 87.2 MCH (27.0-33.0) pg 29.6 MCHC (32.0-36.0) g/dL 33.9 RDW (11.8-14.1) % 13.9 Plt Count (130-400) x1000/uL 259 MPV (8.0-11.0) fL 9.4 Immature Gran % % 0.2 Neutrophils % 52.7 Lymphocytes % 35.9 Monocytes % 8.2 Eosinophils % 2.4 Basophils % 0.6 Absolute Neutrophils (1.2-6.7) k/cumm 2.65 Absolute Lymphocytes (1.2-3.4) k/cumm 1.80 Absolute Monocytes (0.11-0.7) k/cumm 0.41 Absolute Eosinophils (0.0-0.7) k/cumm 0.12 Absolute Basophils (0.0-0.2) k/cumm 0.03 Sodium (136-145) mmol/L 139 Potassium (3.5-5.1) mmol/L 3.1 L Chloride (98-107) mmol/L 101 Carbon Dioxide (21.0-32.0) mmol/L 31.6 Anion Gap (3-11) mmol/L 6.4 BUN (7-18) mg/dL 15 Creatinine (0.70-1.30) mg/dL 1.34 H Estimated GFR/1.73 m2 (mL/min/1.73m2) 53.33 Glucose (74-106) mg/dL 294 H Calcium (8.5-10.1) mg/dL 9.0 Magnesium (1.8-2.4) mg/dL 1.2 L Total Bilirubin (0.2-1.0) mg/dL 0.8 AST (15-37) U/L 11 L ALT (16-63) U/L 13 L Alkaline Phosphatase (46-116) U/L 75 Troponin I (<0.06) ng/Ml < 0.05 Total Protein (6.4-8.2) g/dL 6.4 Albumin (3.4-5.0) g/dL 2.5 L Urine Color (Yellow) Yellow Urine Clarity (Clear) Clear Urine pH (5-8) 6.0 Ur Specific Ignacio (1.005-1.025) 1.025 Urine Protein (Negative) mg/dL >=300 H Urine Ketones (Negative) mg/dL Negative Urine Blood (Negative) Moderate H Urine Nitrite (Negative) Negative Urine Bilirubin (Negative) Negative Urine Urobilinogen (Up TO 0.2) EU/dL 1.0 H Ur Leukocyte Esterase (Negative) Negative Urine RBC (0-2) HPF 5-10 H Urine WBC (0-5) HPF 3-5 Ur Epithelial Cells (Negative) HPF Few Urine Crystals (Negative) HPF Negative Urine Bacteria (Negative) HPF Rare Urine Casts (Negative) LPF 3-5 hyaline Urine Mucus (Negative) Negative Urine Other (Negative) Few renal Ur Culture Indicated? No Urine Glucose (Negative) mg/dL 500 H ECG Data Attestation: I personally reviewed and interpreted this ECG (s) as follows: Interpretation: Rate of 85, sinus, right bundle branch block. Left anterior fascicular block. No acute ST elevation or depression. IA 180. QTc 492. QRS 152. HPI General Mode of arrival: ambulatory. Date/Time Provider Initiated Documentation: 05/29/19 14:51. Limitations to Documentation: no limitations. Information obtained by: patient. HPI Narrative: Patient is a 68-year-old male with a history of asthma, COPD, coronary artery disease, diabetes, hypertension, hyperlipidemia and ID and obesity presents with hyperglycemia and generalized weakness at home today. Glucose as high as 535. Patient states he has home health who helps him with his insulin at home but states he lost his sliding scale insulin information packet and has been giving himself insulin doses which may be inaccurate. He states he took 54 units of Lantus this morning and 20 units of NovoLog in the afternoon. He admits to generalized weakness and denies any unilateral numbness or weakness, headache, dizziness, chest pain, shortness of breath, abdominal pain, vomiting, diarrhea or urinary symptoms. Related Data Home Medications Medication Instructions Recorded Confirmed atorvastatin [Lipitor] 80 mg PO HS 01/05/14 05/29/19 ezetimibe [Zetia] 10 mg PO QAM 01/05/14 05/29/19 furosemide 40 mg PO DAILY 01/05/14 05/29/19 isosorbide mononitrate 120 mg PO QAM 01/05/14 05/29/19 multivitamin [Daily Multi-Vitamin] 2 tab PO QAM 01/05/14 05/29/19 nitroglycerin [Nitrostat] 0.4 mg SUBLINGUAL PRN PRN 01/05/14 05/29/19 ropinirole 2 mg PO HS 01/05/14 05/29/19 cholecalciferol (vitamin D3) 1,000 unit PO DAILY 04/21/15 05/29/19 Lantus Solostar U-100 Insulin 42 unit SQ BID 04/02/17 05/29/19 metoprolol succinate 100 mg PO DAILY 04/02/17 05/29/19 omeprazole 40 mg PO BID #0 tab-cap 04/02/17 05/29/19 ProAir RespiClick 90 mcg INHALATION Q4H PRN 07/10/17 05/29/19 fluticasone propion-salmeterol 1 puff INHALATION BID disk 07/10/17 05/29/19 [Advair Diskus] insulin aspart U-100 [Novolog See Rx Instructions .ROUTE .COMPLEX 07/20/17 05/29/19 Flexpen U-100 Insulin] tamsulosin 0.4 mg PO DAILY tab-cap 07/20/17 05/29/19 mirtazapine 15 mg tablet 15 mg PO DAILY 07/23/18 05/29/19 gabapentin 400 mg PO HS 10/04/18 05/29/19 clopidogrel [Plavix] 75 mg PO DAILY #30 tab 10/16/18 05/29/19 levothyroxine 175 mcg PO DAILY@0600 #30 tab 10/16/18 05/29/19 Slow-Mag 71.5 mg PO DAILY 10/18/18 05/29/19 metformin 500 mg PO BID 10/18/18 05/29/19 lidocaine [Lidoderm] 1 patch TOPICAL Q24H #4 patch 03/20/19 05/29/19 adjuvant AS01B (PF)vial 1 of 2 ml IM 04/01/19 05/19/19 budesonide-formoterol HFA 80 2 puff IH Q12H 04/01/19 05/29/19 mcg-4.5 mcg/actuation aerosol inhaler chlorhexidine gluconate 0.12 % 15 ml MM BID 04/01/19 05/29/19 mouthwash clopidogrel 75 mg tablet 75 mg PO DAILY 04/01/19 05/29/19 clotrimazole 1 % topical cream 1 applic TP BID 04/01/19 05/29/19 fluticasone propionate 50 2 spray ROSE MARY DAILY 04/01/19 05/29/19 mcg/actuation nasal spray,suspension hydrocortisone 0.5 % topical cream 1 applic TP BID PRN 04/01/19 05/29/19 insulin detemir U-100 100 unit/mL 54 unit SC .am and pm ml 04/01/19 05/29/19 (3 mL) subcutaneous pen ketorolac 0.4 % eye drops 1 drp OP QID 04/01/19 05/29/19 levothyroxine 25 mcg tablet 25 mcg PO DAILY 04/01/19 05/29/19 losartan 100 mg tablet 100 mg PO DAILY 04/01/19 05/29/19 metformin 500 mg tablet 500 mg PO BID 04/01/19 05/29/19 mometasone 50 mcg/actuation nasal 2 spray ROSE MARY DAILY 04/01/19 05/29/19 spray mometasone 50 mcg/actuation nasal 2 spray ROSE MARY DAILY 04/01/19 05/29/19 spray nebulizers #1 each 04/01/19 05/19/19 nystatin 100,000 unit/gram topical 1 applic TP TID 04/01/19 05/29/19 powder oxygen-air delivery systems #1 04/01/19 05/19/19 fluoxetine 20 mg PO DAILY 05/29/19 05/29/19 levothyroxine 175 mcg PO DAILY 05/29/19 05/29/19 nitroglycerin [Nitrostat] 0.4 mg SUBLINGUAL PRN PRN 05/29/19 05/29/19 polyethylene glycol 3350 [Miralax] 17 g PO DAILY 05/29/19 05/29/19 Previous Rx's Medication Instructions Recorded omeprazole 40 mg PO BID #0 tab-cap 04/02/17 clopidogrel [Plavix] 75 mg PO DAILY #30 tab 10/16/18 levothyroxine 175 mcg PO DAILY@0600 #30 tab 10/16/18 lidocaine [Lidoderm] 1 patch TOPICAL Q24H #4 patch 03/20/19 Allergies Allergy/AdvReac Type Severity Reaction Status Date / Time No Known Allergies Allergy Unverified 05/29/19 14:55 General DAYLIN: 3 Review of Systems All systems reviewed & are unremarkable except as noted in HPI and below Constitutional Constitutional: Reports as per HPI, Denies chills, Denies fever(s) and Reports weakness Eyes Eyes: Denies blurry vision ENT Ears, Nose, Mouth, and Throat: Denies dizziness, Denies sore throat and Denies throat swelling Cardiovascular Cardiovascular: Denies chest pain and Denies dyspnea Respiratory Respiratory: Denies cough and Denies dyspnea Gastrointestinal Gastrointestinal: Denies abdominal pain, Denies diarrhea and Denies vomiting Genitourinary Genitourinary: Denies hematuria and Denies dysuria Musculoskeletal Musculoskeletal: Denies back pain and Denies numbness Integumentary/Breasts Skin/Breast: Denies lesions and Denies rash Neurologic Neurologic: Denies dizziness, Denies localized weakness, Denies numbness and Reports weakness Allergic/Immunologic Allergic/Immunologic: Denies throat swelling [facility] Medical History Anxiety with depression (Acute) Aortic valve replaced Back pain (Acute) CAD (coronary artery disease) COPD (chronic obstructive pulmonary disease) CVA (cerebral vascular accident) (Chronic) Diabetic neuropathy DM (diabetes mellitus) GERD (gastroesophageal reflux disease) (Chronic) H/O: HTN (hypertension) (Acute) Hematuria (Acute) History of bloody stools (Acute) HTN (hypertension) Hx of fall (Acute) Hyperlipidemia (Acute) Hypothyroidism Hypothyroidism (acquired) (Acute) Insomnia (Acute) Memory impairment (Acute) Obesity (Chronic) IVETTE (obstructive sleep apnea) IVETTE on CPAP (Chronic) Pacemaker Passive suicidal ideations (Acute) Perforated tympanic membrane (Acute) Polypharmacy (Acute) Proteinuria (Acute) Rash, skin (Acute) Renal insufficiency Tinea cruris (Acute) Surgical History Coronary Artery Bypass Gaft (CABG) Coronary Stent CABGx4 Pacemaker Replacement of aortic valve Family History Other Cancer Heart disease Social History Smoking/Tobacco Use Status: Never Alcohol Intake: former Drug use: Never Substance use type: does not use Details: Pt reports no alcohol since his heart attack 1995 Household members: none Housing: other Details: [facility] Number of Children: 2 current occupation: Lives at [employer]. Disabled since . Seatbelt use: always Do you feel safe at home: Yes Do you feel safe in your relationship?: Yes Additional Social history: lives alone, area on aging comes in to assiste pt. Reports safety issue regarding leg giving out. Exam Const General: cooperative, no acute distress and ill appearing chronically Orientation: alert, awake and oriented x3 HENMT Head: normal to inspection Ears: hearing grossly normal bilaterally and external ears normal General nose exam: external nose normal Face and sinus: normal facial exam Mouth: oral mucosae normal Teeth and gingiva: dentition normal Throat: posterior oropharynx normal Eyes General: appearance normal, both eyes and all related structures Eyelids: eyelids normal Pupils: PERRL EOM: EOM intact bilaterally Neck Neck: normal visual inspection Lymphatic: no lymphadenopathy noted Chest Chest: normal inspection of the chest Resp Effort & Inspection: normal respiratory effort and able to speak in complete sentences Auscultation: clear to auscultation bilaterally Cardio Rate: regular rate Rhythm: regular rhythm GI Inspection: normal to inspection and obesity Palpation: soft, not firm, no guarding, no hepatosplenomegaly, no masses and nontender Auscultation: hypoactive bowel sounds Skin General skin exam: no rashes or lesions noted Neuro General: patient alert and patient awake Cognition: normal cognition Speech: speech normal Gait: normal gait Motor: muscle tone normal throughout Sensory Exam: no sensory deficits noted Extrem General: normal to inspection, full ROM, capillary refill normal and no edema Psych Appearance: grossly normal Mental Status: mental status grossly normal Speech and Movement: speech and movement normal Affect: normal affect Thought Process: normal
[2019-05-29] MEDS: Normal Saline 500 ML IV ×2 (15:00→16:11)
[2019-05-29 15:19] LABS: Abs Immature Grans 0.01 k/cumm (0.0-0.09); Absolute Basophil Count 0.03 k/cumm (0.0-0.2); Absolute Eosinophil Count 0.12 k/cumm (0.0-0.7); Absolute Monocyte Count 0.41 k/cumm (0.11-0.7); Absolute Neutrophil Count 2.65 k/cumm (1.2-6.7); Basophils % 0.6; Eosinophils % 2.4; HCT 40.7 % (40.0-50.0); HGB 13.8 g/dL (13.5-17.5); Immature Grans % 0.2 %; Lymphocytes % 35.9; Mean Corp. HGB Concentration 33.9 g/dL (32.0-36.0); Mean Corpuscular Hemoglobin 29.6 pg (27.0-33.0); Mean Corpuscular Volume 87.2 fL (80-95); Mean Platelet Volume 9.4 fL (8.0-11.0); Monocytes % 8.2; Neutrophils % 52.7; Platelet Count 259 x1000/uL (130-400); RBC 4.67 m/cumm (4.50-6.00); RBC Distribution Width 13.9 % (11.8-14.1); White Blood Cell Count 5.02 k/cumm (4.4-10.8)
[2019-05-29 15:27] LABS: Bilirubin Negative (Negative); Blood Moderate (Negative); Clarity Clear (Clear); Glucose 500 mg/dL (Negative); Ketones Negative (Negative); Leukocyte Esterase Negative (Negative); Nitrite Negative (Negative); Specific Gravity 1.025 (1.005-1.025)
[2019-05-29 15:33] LABS: ALT 13 U/L (16-63); AST 11 U/L (15-37); Albumin 2.5 g/dL (3.4-5.0); Alkaline Phosphatase 75 U/L (46-116); Anion Gap 6.4 mmol/L (3-11); BUN 15 mg/dL (7-18); Bilirubin, Total 0.8 mg/dL (0.2-1.0); CO2 31.6 mmol/L (21.0-32.0); CREATININE 1.34 mg/dL (0.70-1.30); Chloride 101 mmol/L (98-107); Estimated GFR 53.33 (mL/min/1.73m2); Glucose 294 mg/dL (74-106); Magnesium 1.2 mg/dL (1.8-2.4); Potassium 3.1 mmol/L (3.5-5.1); Sodium 139 mmol/L (136-145); Total Protein 6.4 g/dL (6.4-8.2); Troponin I < 0.05 ng/Ml (<0.06)
[2019-05-29] MEDS: Potassium Chloride 20 MEQ TABCR 40 MEQ PO (16:05)
[2019-05-29] MEDS: MAGNESIUM SULFATE 1 GM/100 ML BAG IVPB (16:06)
[2019-05-29 16:12] LABS: Bacteria Rare HPF (Negative); C & S Indicated? No; Casts 3-5 Hyaline LPF (Negative); Crystals Negative HPF (Negative); Epithelial Cells Few HPF (Negative); Mucus Negative (Negative); Other Cells Few Renal (Negative)
--- NOTE | 2019-05-30 14:31 | CMPROGNOTE_ITS ---
- If Service Date Differs Date of service: 05/29/19 Time of Service: 14:31 Care Management Progress Note ED provider requests CM's assistance in locating a sliding scale for patient's insulin. Sher reportedly was given one by his PCP several months ago but has lost it and is unsure of how many units of insulin he should be taking. PAT telephones Sher's PCP's office ([facility]) and speaks with DINORA Reed, who reports Sher has been told a few times to stop taking his insulin on a s liding scale. She reports he is prescribed Levemir 54 units twice a day and Novolog 30 units three time a day but fears Sher is not taking the insulin as prescribed. PAT relays information to ED provider.
== END 2019-05-29 18:00 | disposition home or self-care (01) ==
PROVIDERS: Emergency Provider Physician Assistant; PCP Registered Nurse
DX: E11.65 Type 2 diabetes mellitus with hyperglycemia (principal); R53.1 Weakness; R79.9 Abnormal finding of blood chemistry, unspecified; J44.9 Chronic obstructive pulmonary disease, unspecified; I10 Essential (primary) hypertension; Z79.4 Long term (current) use of insulin
CPT/HCPCS: 80053; 93005; 96361; 96365; 99284; 81003; 81015; 83735; 84484; 85025; 93010; J3475

== ENCOUNTER 2019-07-03 06:21 | Emergency (ER) | payer OTHER, MEDICAID, SELFPAY ==
--- NOTE | 2019-07-03 06:15 | DI.RAD_ITS ---
EXAM: XR PORTABLE CHEST AP CLINICAL HISTORY: chest pain TECHNIQUE: COMPARISON: XR CHEST 2V PA LATERAL from 02/14/2019 FINDINGS: Portable AP film at 0648 hours. There is a poor inspiration. There is mild prominence of the pulmon arturo interstitial markings which may be due to the poor inspiration. No focal consolidation. Cardiac size appears at the upper limits of normal. Proximal aortic graft again noted. Transvenous cardiac pacemaker again noted in position. IMPRESSION: No evidence of acute process.
[2019-07-03 06:22] VITALS: BP 164/76; PULSE 92; RESP 16; TEMP 36.8; O2SAT 97
--- NOTE | 2019-07-03 06:48 | ED.GENADUL_ITS ---
Discharge Plan Disposition Patient Disposition: HOME Condition: Stable Discharge Details Chief Complaint: Chest Pain Clinical Impression: Chest pain Primary Care Provider: ALEXUS LAN ED Provider: Drake Vasquez Home Meds and New Rx's Prescriptions: Continued mirtazapine 15 mg tablet 15 mg PO DAILY RF: 0 cholecalciferol (vitamin D3) 1,000 UNIT capsule 1,000 unit PO DAILY RF: 0 fluticasone propion-salmeterol [Advair Diskus] 1 EACH blister with device 1 puff Inhalation BID RF: 0 ProAir RespiClick 90 MCG aerosol powdr breath activated 90 mcg Inhalation Q4H PRN RF: 0 tamsulosin 0.4 MG capsule 0.4 mg PO DAILY RF: 0 insulin aspart U-100 [Novolog Flexpen U-100 Insulin] 100 UNIT/1 ML insulin pen See Rx Instructions .ROUTE .COMPLEX RF: 0 ketorolac 0.4 % drops 1 drp OP QID RF: 0 chlorhexidine gluconate [Periogard] 0.12 % mouthwash 15 ml MM BID RF: 0 (DME) nebulizers Misc See Rx Instructions .ROUTE .MEDSUPPLY Qty: 1 RF: 0 (DME) oxygen-air delivery systems Device See Rx Instructions .ROUTE .MEDSUPPLY Qty: 1 RF: 0 nystatin 100,000 unit/gram powder 1 applic TP TID RF: 0 clotrimazole 1 % cream 1 applic TP BID RF: 0 mometasone [Nasonex] 50 mcg/actuation spray,non-aerosol 2 spray ROSE MARY DAILY RF: 0 fluticasone propionate 50 mcg/actuation spray,suspension 2 spray ROSE MARY DAILY RF: 0 Levemir FlexTouch U-100 Insuln 100 unit/mL (3 mL) insulin pen 54 unit SC .am and pm RF: 0 metformin 500 mg tablet 500 mg PO BID RF: 0 budesonide-formoterol [Symbicort] 80-4.5 mcg/actuation HFA aerosol inhaler 2 puff IH Q12H RF: 0 clopidogrel [Plavix] 75 mg tablet 75 mg PO DAILY RF: 0 losartan 100 mg tablet 100 mg PO DAILY RF: 0 hydrocortisone 0.5 % cream 1 applic TP BID PRNRF: 0 levothyroxine 25 mcg tablet 25 mcg PO DAILY RF: 0 ezetimibe [Zetia] 10 MG tablet 10 mg PO QAM RF: 0 isosorbide mononitrate 120 MG tablet extended release 24 hr 120 mg PO QAM RF: 0 furosemide 40 MG tablet 40 mg PO DAILY RF: 0 atorvastatin [Lipitor] 80 MG tablet 80 mg PO HS RF: 0 ropinirole 2 MG tablet 2 mg PO HS RF: 0 multivitamin [Daily Multi-Vitamin] 1 EACH tablet 2 tab PO QAM RF: 0 metoprolol succinate 100 MG tablet extended release 24 hr 100 mg PO DAILY RF: 0 omeprazole 20 MG capsule,delayed release(DR/EC) 40 mg PO BID Qty: 0 RF: 0 gabapentin 300 mg Capsule 400 mg PO HS RF: 0 Slow-Mag 71.5 mg Tablet,Delayed Release (Dr/Ec) 71.5 mg PO DAILY RF: 0 polyethylene glycol 3350 [Miralax] 17 gram Powder In Packet 17 g PO DAILY RF: 0 levothyroxine 175 mcg Tablet 175 mcg PO DAILY RF: 0 nitroglycerin [Nitrostat] 0.4 mg Tablet, Sublingual 0.4 mg sublingual PRN PRNRF: 0 fluoxetine 20 mg Capsule 20 mg PO DAILY RF: 0 Discharge Instructions Instructions: Chest Pain (ED), Hypokalemia (ED), Hypomagnesemia (ED) Additional Instructions: follow up with your primary care provider within 1 week if you have severe worsening of pain, difficulty breathing or feel more ill return to the emergency department Stand Alone Forms: Work Release Discharge Data Discharge Date/Time-TO BE ENTERED AT DEPARTURE: 07/03/19 10:05 Medical Decision Making <Drake Vasquez MD - Last Filed: 07/03/19 07:40> 69 yo male with multiple medical problems including CAD s/p stenting, copd, pacemaker, t2dm who comes in with burning sensation in his chest since yesterday and is unable to provide complete details on when it started or what he was doing when it started. He took 2 nitro at home without significaitn relief so came here. Denies any dyspnea, fevers, abdominal pain, back pain. Has no tenderness of the abdomen on exam speaking in full sentences in no distress. Given his history will obtain ecg and troponin to evaluate for acs. His symptoms are consistent with possible gerd so will try gi cocktail. He has no hypoxia, tachycardia or pleuritic chest pain so doubt PE and no evidence of dvt on exam. No tearing back pain and no deficits in pulses on either arm to suggest dissection pt's pain resolved with gi cocktail and has no pain now, labs show chronic elevated probnp and low k and magnesium that is not abnormal for him. I recommended admission but he declined. He has the capacity to make his own decisions and understands risks of leaving including and disability and is willing to accept these risks He has had the pain since yesterday so did not feel delta troponin would be beneficial, this was at least offered to him but he declined. Will place him on f/u list to see pcp within a week, return precautions given Differential Diagnosis Differential Diagnosis: gerd, acs, pna, esophagitis Medical Records Medical records reviewed: Yes I reviewed the patient's medical records. Imaging Data Radiologic Study: Attestation: I personally reviewed and interpreted this imaging study as follows: Imaging: X-Ray Radiologist's impression: IMPRESSION: Question mild interstitial prominence/peribronchial thickening. Correlate for mild bronchitis No radiographic evidence for pneumonia Lab Data Lab results reviewed: Yes I reviewed the patient's lab results. ECG Data Attestation: I personally reviewed and interpreted this ECG (s) as follows: Prior ECG tracings: available for review Interpretation: sinus rhythm, rate of 81, pr 176, qtc 508, no acute st t wave ischmic findings <Torsten Diane DO - Last Filed: 07/04/19 08:05> I did not see or care for this patient. My name was placed on the chart in error and was unable to be removed secondary to the complicated system of [employer]. HPI <Drake Vasquez MD - Last Filed: 07/03/19 07:40> General Mode of arrival: EMS . Date/Time Provider Initiated Documentation: 07/03/19 06:29 . Limitations to Documentation: no limitations . Information obtained by: patient . History of Present Illness 69 year old M presents to the emergency department with the chief complaint of chest pain, described as moderate, with intensity rated at 4. Quality is described as burning, and is localized to the chest. Patient reports no radiation. Patient started experiencing this day(s) (1) and it has been constant. No relieving factors improve symptom(s), No exacerbating factors reported . Patient notes no other symptoms.. Patient did receive the following treatments prior to arrival, other (nitro, no relief) Related Data Home Medications Medication Instructions Recorded Confirmed atorvastatin [Lipitor] 80 mg PO HS 01/05/14 07/03/19 ezetimibe [Zetia] 10 mg PO QAM 01/05/14 07/03/19 furosemide 40 mg PO DAILY 01/05/14 07/03/19 isosorbide mononitrate 120 mg PO QAM 01/05/14 07/03/19 multivitamin [Daily Multi-Vitamin] 2 tab PO QAM 01/05/14 07/03/19 ropinirole 2 mg PO HS 01/05/14 07/03/19 cholecalciferol (vitamin D3) 1,000 unit PO DAILY 04/21/15 07/03/19 metoprolol succinate 100 mg PO DAILY 04/02/17 07/03/19 omeprazole 40 mg PO BID #0 tab-cap 04/02/17 07/03/19 ProAir RespiClick 90 mcg INHALATION Q4H PRN 07/10/17 07/03/19 fluticasone propion-salmeterol 1 puff INHALATION BID disk 07/10/17 07/03/19 [Advair Diskus] insulin aspart U-100 [Novolog See Rx Instructions .ROUTE .COMPLEX 07/20/17 07/03/19 Flexpen U-100 Insulin] tamsulosin 0.4 mg PO DAILY tab-cap 07/20/17 07/03/19 mirtazapine 15 mg tablet 15 mg PO DAILY 07/23/18 07/03/19 gabapentin 400 mg PO HS 10/04/18 07/03/19 Slow-Mag 71.5 mg PO DAILY 10/18/18 07/03/19 budesonide-formoterol HFA 80 2 puff IH Q12H 04/01/19 07/03/19 mcg-4.5 mcg/actuation aerosol inhaler chlorhexidine gluconate 0.12 % 15 ml MM BID 04/01/19 07/03/19 mouthwash clopidogrel 75 mg tablet 75 mg PO DAILY 04/01/19 07/03/19 clotrimazole 1 % topical cream 1 applic TP BID 04/01/19 07/03/19 fluticasone propionate 50 2 spray ROSE MARY DAILY 04/01/19 07/03/19 mcg/actuation nasal spray,suspension hydrocortisone 0.5 % topical cream 1 applic TP BID PRN 04/01/19 07/03/19 insulin detemir U-100 100 unit/mL 54 unit SC .am and pm ml 04/01/19 07/03/19 (3 mL) subcutaneous pen ketorolac 0.4 % eye drops 1 drp OP QID 04/01/19 07/03/19 levothyroxine 25 mcg tablet 25 mcg PO DAILY 04/01/19 07/03/19 losartan 100 mg tablet 100 mg PO DAILY 04/01/19 07/03/19 metformin 500 mg tablet 500 mg PO BID 04/01/19 07/03/19 mometasone 50 mcg/actuation nasal 2 spray ROSE MARY DAILY 04/01/19 07/03/19 spray nebulizers #1 each 04/01/19 05/19/19 nystatin 100,000 unit/gram topical 1 applic TP TID 04/01/19 07/03/19 powder oxygen-air delivery systems #1 04/01/19 05/19/19 fluoxetine 20 mg PO DAILY 05/29/19 07/03/19 levothyroxine 175 mcg PO DAILY 05/29/19 07/03/19 nitroglycerin [Nitrostat] 0.4 mg SUBLINGUAL PRN PRN 05/29/19 07/03/19 polyethylene glycol 3350 [Miralax] 17 g PO DAILY 05/29/19 07/03/19 Previous Rx's Medication Instructions Recorded omeprazole 40 mg PO BID #0 tab-cap 04/02/17 Allergies Allergy/AdvReac Type Severity Reaction Status Date / Time No Known Allergies Allergy Unverified 05/29/19 14:55 General Stated Complaint: Chest Pain DAYLIN: 2 Review of Systems <Drake Vasquez MD - Last Filed: 07/03/19 07:40> All systems reviewed & are unremarkable except as noted in HPI and below Constitutional Constitutional: Denies chills, Denies fever(s) and Denies weakness Cardiovascular Cardiovascular: Denies dyspnea Respiratory Respiratory: Denies cough and Denies dyspnea Gastrointestinal Gastrointestinal: Denies abdominal pain, Denies nausea and Denies vomiting Musculoskeletal Musculoskeletal: Denies joint swelling Neurologic Neurologic: Denies weakness Psychiatric Psychiatric: Denies depression PFSH <Drake Vasquez MD - Last Filed: 07/03/19 07:40> Social History Smoking/Tobacco Use Status: Never Alcohol Intake: former Drug use: Never Substance use type: does not use Details: Pt reports no alcohol since his heart attack 1995 Household members: none Housing: other Details: [facility] Number of Children: 2 current occupation: Lives at [facility]. Disabled since . Seatbelt use: always Do you feel safe at home: Yes Do you feel safe in your relationship?: Yes Additional Social history: lives alone, [facility] comes in to assiste pt. Reports safety issue regarding leg giving out. Exam <Drake Vasquez MD - Last Filed: 07/03/19 07:40> Const General: no acute distress Orientation: alert HENMT Head: normal to inspection Ears: external ears normal General nose exam: external nose normal Mouth: moist mucous membranes Eyes General: appearance normal, both eyes and all related structures Neck Neck: normal visual inspection Resp Effort & Inspection: normal respiratory effort and able to speak in complete sentences Cardio Rate: regular rate Skin General skin exam: no rashes or lesions noted Neuro General: patient alert and patient oriented x3 Extrem General: normal to inspection Psych Mental Status: mental status grossly normal Course <Drake Vasquez MD - Last Filed: 07/03/19 07:40> Vital Signs Vital signs: Vital Signs Temperature 36.8 C 07/03/19 06:22 Pulse 92 H 07/03/19 06:22 Respiratory Rate 16 07/03/19 06:22 Blood Pressure 164/76 H 07/03/19 06:22 Pulse Oximetry 97 07/03/19 06:22 Temperature 36.8 C 07/03/19 06:22 Temperature Source Temporal Artery Scan 07/03/19 06:22 Pulse 92 H 07/03/19 06:22 Respiratory Rate 16 07/03/19 06:22 Respiratory Effort 07/03/19 06:47 Blood Pressure 164/76 H 07/03/19 06:22 Pulse Oximetry 97 07/03/19 06:22 Oxygen Delivery Method Room Air 07/03/19 06:22 Oxygen Flow Rate 0 07/03/19 06:22 Pain Level 8 07/03/19 06:22
--- NOTE | 2019-07-03 06:59 | DI.VRAD_ITS ---
PROCEDURE INFORMATION: Exam: XR Chest, 1 View Exam date and time: 07/03/2019 6:48 AM Age: 69 years old Clinical indication: Chest pain; Type not specified TECHNIQUE: Imaging protocol: XR of the chest Views: 1 view. COMPARISON: CR XR CHEST 2V PA LATERAL 02/14/2019 5:11 AM FINDINGS: Cardiac pacemaker leads are grossly intact. Prior sternotomy/CABG Low lung volumes. Moderate cardiomegaly and tortuous aorta noted. Mild interstitial prominence/peribronchial thickening. No focal consolidation. No pleural effusion or pneumothorax Question right-sided calcific tendinosis IMPRESSION: Question mild interstitial prominence/peribronchial thickening. Correlate for mild bronchitis No radiographic evidence for pneumonia Dictated and Authenticated by: Sukhdeep Gill MD. Ordering:ZENON Juan MD
[2019-07-03] MEDS: Aspirin 81 MG CHEW 324 MG CH (07:00)
[2019-07-03 07:02] VITALS: BP 190/82; PULSE 77; RESP 14; TEMP 36.6; O2SAT 96
--- NOTE | 2019-07-03 07:10 | NUR.NOTE ---
Nursing Note: BGL 105, MD Vasquez made aware.
[2019-07-03 07:12] LABS: Abs Immature Grans 0.04 k/cumm (0.0-0.09); Absolute Basophil Count 0.06 k/cumm (0.0-0.2); Absolute Eosinophil Count 0.17 k/cumm (0.0-0.7); Absolute Lymphocyte Count 3.36 k/cumm (1.2-3.4); Absolute Monocyte Count 0.77 k/cumm (0.11-0.7); Absolute Neutrophil Count 4.09 k/cumm (1.2-6.7); Basophils % 0.7; HCT 42.3 % (40.0-50.0); HGB 14.5 g/dL (13.5-17.5); Immature Grans % 0.5 %; Lymphocytes % 39.6; Mean Corp. HGB Concentration 34.3 g/dL (32.0-36.0); Mean Corpuscular Hemoglobin 29.2 pg (27.0-33.0); Mean Corpuscular Volume 85.3 fL (80-95); Mean Platelet Volume 9.6 fL (8.0-11.0); Monocytes % 9.1; Neutrophils % 48.1; Platelet Count 344 x1000/uL (130-400); RBC 4.96 m/cumm (4.50-6.00); RBC Distribution Width 13.7 % (11.8-14.1); White Blood Cell Count 8.49 k/cumm (4.4-10.8)
[2019-07-03 07:14] LABS: ALT 16 U/L (16-63); AST 13 U/L (15-37); Albumin 2.5 g/dL (3.4-5.0); Alkaline Phosphatase 88 U/L (46-116); Anion Gap 8.2 mmol/L (3-11); BUN 15 mg/dL (7-18); Bilirubin, Total 0.9 mg/dL (0.2-1.0); CO2 29.8 mmol/L (21.0-32.0); CREATININE 1.27 mg/dL (0.70-1.30); Calcium 9.6 mg/dL (8.5-10.1); Chloride 99 mmol/L (98-107); Estimated GFR 56.57 (mL/min/1.73m2); Glucose 75 mg/dL (74-106); Lipase 116 U/L (73-393); Magnesium 1.3 mg/dL (1.8-2.4); NT-proBNP 2793 pg/mL (<300); Sodium 137 mmol/L (136-145); Troponin I < 0.05 ng/Ml (<0.06)
[2019-07-03 07:21] LABS: Potassium 2.9 mmol/L (3.5-5.1)
[2019-07-03] MEDS: Potassium Chloride 20 MEQ TABCR 40 MEQ PO (07:46)
[2019-07-03 07:47] LABS: Prothrombin Time 10.1 sec (9.3-11.0)
[2019-07-03 07:48] VITALS: BP 190/82; PULSE 72; RESP 14; TEMP 36.6; O2SAT 96
[2019-07-03 09:22] VITALS: BP 147/105; PULSE 73; RESP 16; TEMP 36.6; O2SAT 95
--- NOTE | 2019-07-04 11:35 | PDOC.ERCMACT ---
- If Service Date Differs Date of service: 07/04/19 Time of Service: 11:36 Care Management Activity Note ER note is faxed to Sher's primary care physician at the [facility] with a request for a follow-up appointment in one week.
== END 2019-07-03 10:05 | disposition home or self-care (01) ==
PROVIDERS: Emergency Provider Emergency Medicine; PCP Registered Nurse
DX: R07.89 Other chest pain (principal); E83.42 Hypomagnesemia; E87.6 Hypokalemia; J44.0 Chronic obstructive pulmonary disease with (acute) lower respiratory infection; E11.9 Type 2 diabetes mellitus without complications; Z79.4 Long term (current) use of insulin
CPT/HCPCS: 36416; 80053; 82962; 83690; 93005; 99284; 71045; 83735; 83880; 84484; 85025; 85610; 85730; 93010

== ENCOUNTER 2019-07-11 12:57 | Emergency (ER) | payer OTHER, MEDICAID, SELFPAY ==
[2019-07-11] VITALS (48 sets, daily range): BP systolic 125–191; BP diastolic 68–127; PULSE 66–95; RESP 10–26; TEMP 36.5–36.7; O2SAT 94–98
--- NOTE | 2019-07-11 12:58 | ED.GENADUL_ITS ---
Discharge Plan Disposition Patient Disposition: [facility] Condition: Stable Discharge Details Chief Complaint: AMS/LOC Clinical Impression: NSTEMI (non-ST elevated myocardial infarction), Hyperglycemia Primary Care Provider: ALEXUS LAN ED Provider: Mounika Persaud Home Meds and New Rx's Prescriptions: No Action mirtazapine 15 mg tablet 15 mg PO DAILY RF: 0 cholecalciferol (vitamin D3) 1,000 UNIT capsule 1,000 unit PO DAILY RF: 0 fluticasone propion-salmeterol [Advair Diskus] 1 EACH blister with device 1 puff Inhalation BID RF: 0 ProAir RespiClick 90 MCG aerosol powdr breath activated 90 mcg Inhalation Q4H PRN RF: 0 tamsulosin 0.4 MG capsule 0.4 mg PO DAILY RF: 0 insulin aspart U-100 [Novolog Flexpen U-100 Insulin] 100 UNIT/1 ML insulin pen See Rx Instructions .ROUTE .COMPLEX RF: 0 ketorolac 0.4 % drops 1 drp OP QID RF: 0 chlorhexidine gluconate [Periogard] 0.12 % mouthwash 15 ml MM BID RF: 0 (DME) nebulizers Misc See Rx Instructions .ROUTE .MEDSUPPLY Qty: 1 RF: 0 (DME) oxygen-air delivery systems Device See Rx Instructions .ROUTE .MEDSUPPLY Qty: 1 RF: 0 nystatin 100,000 unit/gram powder 1 applic TP TID RF: 0 clotrimazole 1 % cream 1 applic TP BID RF: 0 mometasone [Nasonex] 50 mcg/actuation spray,non-aerosol 2 spray ROSE MARY DAILY RF: 0 fluticasone propionate 50 mcg/actuation spray,suspension 2 spray ROSE MARY DAILY RF: 0 Levemir FlexTouch U-100 Insuln 100 unit/mL (3 mL) insulin pen 54 unit SC .am and pm RF: 0 metformin 500 mg tablet 500 mg PO BID RF: 0 budesonide-formoterol [Symbicort] 80-4.5 mcg/actuation HFA aerosol inhaler 2 puff IH Q12H RF: 0 clopidogrel [Plavix] 75 mg tablet 75 mg PO DAILY RF: 0 losartan 100 mg tablet 100 mg PO DAILY RF: 0 hydrocortisone 0.5 % cream 1 applic TP BID PRNRF: 0 levothyroxine 25 mcg tablet 25 mcg PO DAILY RF: 0 ezetimibe [Zetia] 10 MG tablet 10 mg PO QAM RF: 0 isosorbide mononitrate 120 MG tablet extended release 24 hr 120 mg PO QAM RF: 0 furosemide 40 MG tablet 40 mg PO DAILY RF: 0 atorvastatin [Lipitor] 80 MG tablet 80 mg PO HS RF: 0 ropinirole 2 MG tablet 2 mg PO HS RF: 0 multivitamin [Daily Multi-Vitamin] 1 EACH tablet 2 tab PO QAM RF: 0 metoprolol succinate 100 MG tablet extended release 24 hr 100 mg PO DAILY RF: 0 omeprazole 20 MG capsule,delayed release(DR/EC) 40 mg PO BID Qty: 0 RF: 0 gabapentin 300 mg Capsule 400 mg PO HS RF: 0 Slow-Mag 71.5 mg Tablet,Delayed Release (Dr/Ec) 71.5 mg PO DAILY RF: 0 polyethylene glycol 3350 [Miralax] 17 gram Powder In Packet 17 g PO DAILY RF: 0 levothyroxine 175 mcg Tablet 175 mcg PO DAILY RF: 0 nitroglycerin [Nitrostat] 0.4 mg Tablet, Sublingual 0.4 mg sublingual PRN PRNRF: 0 fluoxetine 20 mg Capsule 20 mg PO DAILY RF: 0 Discharge Data Discharge Date/Time-TO BE ENTERED AT DEPARTURE: 07/11/19 17:20 Medical Decision Making 1300 -- 69-year-old male with multiple medical problems including anxiety, depression, coronary artery disease with CABG and coronary stent placement, COPD, CVA, diabetes, hypertension, sleep apnea and morbid obesity presents for hyperglycemia, reported confusion and weakness. EMS states glucose was 580. Patient states his confusion is evident and some memory issues at times. He admitted to an episode of chest pain at 3 AM this morning that was unresolved with nitro. He denies any chest pain at present. Glucose on arrival 500s. Patient appears in no acute distress. He is oriented x3. He has no focal deficits. EKG on arrival notes a rate of 80, sinus, right bundle branch block and left bifascicular block which appear similar to previous EKG. Differential diagnosis includes electrolyte abnormality, metabolic abnormality, ACS, CVA, dehydration, UTI. Will check screening labs, CT head and chest x-ray and start fluids. 1400 --troponin elevated at 1.4. Patient denies any chest pain. Remainder of labs noted a normal CBC, potassium 3.4, sodium 127. Glucose 603 with normal bicarb and anion gap. Magnesium 1.6. Urinalysis notes glucose and protein. Negative CT head and chest x-ray. 1430 --Case discussed with [facility] cardiology who recommends heparin drip, nitro drip and Plavix 300 mg p.o. x1. Accepts patient for transfer, accepting physician Dr. Feliciano. 1500 --Case discussed with patient who states he does not want to be transferred to [facility]. He would rather transferred to [facility] as his sons live nearby there. Case discussed with [facility] cardiology -who stated that patient does not need emergent transfer at this time for any intervention and recommends serial troponins and EKGs. We will repeat troponin and EKG at this time and determine disposition based on result. 1620 --repeat troponin slightly up trending at 1.73. Repeat EKG unchanged. Patient remains chest pain-free. He now is agreeable to transfer to [facility]. Bed now available at [facility]. Discussed with [facility] and they state they are unable to transport with insulin drip but can continue heparin and nitro drip. [facility] does not have a critical care medic available at this time. Patient glucose is downtrending to 434. Will hold insulin drip at this time to prevent further delay of transport. Patient remains hemodynamically stable and in no acute distress. Medical Records Medical records reviewed: Yes I reviewed the patient's medical records. Imaging Data Radiologic Study: Radiologist's impression: CT HEAD WO CLINICAL HISTORY: CONFUSION, R/O ACUTE CVA. TECHNIQUE: Imaging Protocol: Axial computed tomography images with coronal and sagittal reformatted images were created and reviewed COMPARISON: CT HEAD WO from 12/27/2018 FINDINGS: Ventricles and Extra axial spaces: Normal in size and morphology for the patient's age. Hemorrhage: None. Cerebral parenchyma: There is an old infarct again seen involving the right parietal and occipital lobe. No new acute territorial infarct is identified. Midline shift: None. Brainstem/Cerebellum: Normal. Calvarium: Normal. Visualized Paranasal sinuses/Mastoids: Clear. Soft Tissues: Unremarkable. IMPRESSION: No acute intracranial process. The findings were discussed with the Emergency Department on the date of the examination. XR CHEST 2V PA LATERAL CLINICAL HISTORY: confusion, chest pain, r/o acute disease TECHNIQUE: 2D digital imaging was performed. COMPARISON: XR CHEST 2V PA LATERAL from 02/14/2019 FINDINGS: MEDIASTINUM: Normal. HEART: Normal. Aortic graft is again noted. PULMONARY VASCULATURE: Normal. LUNGS: Clear. PLEURAL SPACE: No pleural effusion or pneumothorax. BONE:Normal. Sternal wires are in place. OTHER FINDINGS:Pacing wires are stable in position. IMPRESSION: No acute pulmonary findings. Lab Data Lab results reviewed: Yes I reviewed the patient's lab results. Labs: Laboratory Tests Range/Units 07/11/19 07/11/19 07/11/19 13:06 13:42 14:25 WBC (4.4-10.8) k/cumm 5.95 RBC (4.50-6.00) m/cumm 4.70 Hgb (13.5-17.5) g/dL 13.9 Hct (40.0-50.0) % 39.4 L MCV (80-95) fL 83.8 MCH (27.0-33.0) pg 29.6 MCHC (32.0-36.0) g/dL 35.3 RDW (11.8-14.1) % 13.0 Plt Count (130-400) x1000/uL 281 MPV (8.0-11.0) fL 9.8 Immature Gran % % 0.2 Neutrophils % 62.3 Lymphocytes % 28.1 Monocytes % 7.1 Eosinophils % 1.8 Basophils % 0.5 Absolute Neutrophils (1.2-6.7) k/cumm 3.71 Absolute Lymphocytes (1.2-3.4) k/cumm 1.67 Absolute Monocytes (0.11-0.7) k/cumm 0.42 Absolute Eosinophils (0.0-0.7) k/cumm 0.11 Absolute Basophils (0.0-0.2) k/cumm 0.03 PT (9.3-11.0) sec INR (0.9-1.1) APTT (21.0-31.4) sec Sodium (136-145) mmol/L 127 L Potassium (3.5-5.1) mmol/L 3.4 L Chloride (98-107) mmol/L 92 L Carbon Dioxide (21.0-32.0) mmol/L 26.6 Anion Gap (3-11) mmol/L 8.4 BUN (7-18) mg/dL 15 Creatinine (0.70-1.30) mg/dL 1.56 H Estimated GFR/1.73 m2 (mL/min/1.73m2) 44.62 Glucose (74-106) mg/dL 603 H* Calcium (8.5-10.1) mg/dL 8.8 Magnesium (1.8-2.4) mg/dL 1.6 L Total Bilirubin (0.2-1.0) mg/dL 0.8 AST (15-37) U/L 20 ALT (16-63) U/L 18 Alkaline Phosphatase (46-116) U/L 84 Troponin I (<0.06) ng/Ml 1.40 H* Total Protein (6.4-8.2) g/dL 6.5 Albumin (3.4-5.0) g/dL 2.4 L Urine Color (Yellow) Yellow Urine Clarity (Clear) Clear Urine pH (5-8) 6.5 Ur Specific [place] (1.005-1.025) 1.015 Urine Protein (Negative) mg/dL >=300 H Urine Ketones (Negative) mg/dL Negative Urine Blood (Negative) Small H Urine Nitrite (Negative) Negative Urine Bilirubin (Negative) Negative Urine Urobilinogen (Up TO 0.2) EU/dL 0.2 Ur Leukocyte Esterase (Negative) Negative Urine RBC (0-2) HPF 5-10 H Urine WBC (0-5) HPF 0-2 Ur Epithelial Cells (Negative) HPF Rare Urine Crystals (Negative) HPF Negative Urine Bacteria (Negative) HPF Rare Urine Casts (Negative) LPF Negative Urine Mucus (Negative) Negative Ur Culture Indicated? No Urine Glucose (Negative) mg/dL 500 H Range/Units 07/11/19 07/11/19 15:52 15:52 WBC (4.4-10.8) k/cumm RBC (4.50-6.00) m/cumm Hgb (13.5-17.5) g/dL Hct (40.0-50.0) % MCV (80-95) fL MCH (27.0-33.0) pg MCHC (32.0-36.0) g/dL RDW (11.8-14.1) % Plt Count (130-400) x1000/uL MPV (8.0-11.0) fL Immature Gran % % Neutrophils % Lymphocytes % Monocytes % Eosinophils % Basophils % Absolute Neutrophils (1.2-6.7) k/cumm Absolute Lymphocytes (1.2-3.4) k/cumm Absolute Monocytes (0.11-0.7) k/cumm Absolute Eosinophils (0.0-0.7) k/cumm Absolute Basophils (0.0-0.2) k/cumm PT (9.3-11.0) sec 10.1 INR (0.9-1.1) 1.0 APTT (21.0-31.4) sec 24.3 Sodium (136-145) mmol/L Potassium (3.5-5.1) mmol/L Chloride (98-107) mmol/L Carbon Dioxide (21.0-32.0) mmol/L Anion Gap (3-11) mmol/L BUN (7-18) mg/dL Creatinine (0.70-1.30) mg/dL Estimated GFR/1.73 m2 (mL/min/1.73m2) Glucose (74-106) mg/dL Calcium (8.5-10.1) mg/dL Magnesium (1.8-2.4) mg/dL Total Bilirubin (0.2-1.0) mg/dL AST (15-37) U/L ALT (16-63) U/L Alkaline Phosphatase (46-116) U/L Troponin I (<0.06) ng/Ml 1.73 H* Total Protein (6.4-8.2) g/dL Albumin (3.4-5.0) g/dL Urine Color (Yellow) Urine Clarity (Clear) Urine pH (5-8) Ur Specific [place] (1.005-1.025) Urine Protein (Negative) mg/dL Urine Ketones (Negative) mg/dL Urine Blood (Negative) Urine Nitrite (Negative) Urine Bilirubin (Negative) Urine Urobilinogen (Up TO 0.2) EU/dL Ur Leukocyte Esterase (Negative) Urine RBC (0-2) HPF Urine WBC (0-5) HPF Ur Epithelial Cells (Negative) HPF Urine Crystals (Negative) HPF Urine Bacteria (Negative) HPF Urine Casts (Negative) LPF Urine Mucus (Negative) Ur Culture Indicated? Urine Glucose (Negative) mg/dL ECG Data Attestation: I personally reviewed and interpreted this ECG (s) as follows: Interpretation: #1 -- Rate of 80, sinus, right bundle branch block. Left bifascicular block. No acute ST elevation or depression. SD 182. QTc 508. QRS 152. #2 -- Rate of 90, sinus, right bundle branch block. Left bifascicular block. No acute ST elevation or depression. SD 160. QTc 538. QRS 150. HPI General Mode of arrival: EMS . Date/Time Provider Initiated Documentation: 07/11/19 12:57 . Limitations to Documentation: no limitations . Information obtained by: patient and EMS . HPI Narrative: Patient is a 69-year-old male with multiple medical problems including anxiety, depression, coronary artery disease with CABG and coronary stent placement and aortic valve replacement, COPD, CVA, diabetes, morbid obesity, pacemaker who presents to the ED for hyperglycemia, confusion and generalized weakness. Patient states he has felt confused and generally weak for several months. He states his sugar often fluctuates between normal and high. He states he has been taking his insulin and regular medications as directed. He denied chest pain to me but admitted to one episode of chest pain at 3 AM this morning which was not relieved with 1 nitro. He denies any chest pain at present. He denies any fever, cough, shortness of breath, abdominal pain or urinary symptoms. Related Data Home Medications Medication Instructions Recorded Confirmed atorvastatin [Lipitor] 80 mg PO HS 01/05/14 07/03/19 ezetimibe [Zetia] 10 mg PO QAM 01/05/14 07/03/19 furosemide 40 mg PO DAILY 01/05/14 07/03/19 isosorbide mononitrate 120 mg PO QAM 01/05/14 07/03/19 multivitamin [Daily Multi-Vitamin] 2 tab PO QAM 01/05/14 07/03/19 ropinirole 2 mg PO HS 01/05/14 07/03/19 cholecalciferol (vitamin D3) 1,000 unit PO DAILY 04/21/15 07/03/19 metoprolol succinate 100 mg PO DAILY 04/02/17 07/03/19 omeprazole 40 mg PO BID #0 tab-cap 04/02/17 07/03/19 ProAir RespiClick 90 mcg INHALATION Q4H PRN 07/10/17 07/03/19 fluticasone propion-salmeterol 1 puff INHALATION BID disk 07/10/17 07/03/19 [Advair Diskus] insulin aspart U-100 [Novolog See Rx Instructions .ROUTE .COMPLEX 07/20/17 07/03/19 Flexpen U-100 Insulin] tamsulosin 0.4 mg PO DAILY tab-cap 07/20/17 07/03/19 mirtazapine 15 mg tablet 15 mg PO DAILY 07/23/18 07/03/19 gabapentin 400 mg PO HS 10/04/18 07/03/19 Slow-Mag 71.5 mg PO DAILY 10/18/18 07/03/19 budesonide-formoterol HFA 80 2 puff IH Q12H 04/01/19 07/03/19 mcg-4.5 mcg/actuation aerosol inhaler chlorhexidine gluconate 0.12 % 15 ml MM BID 04/01/19 07/03/19 mouthwash clopidogrel 75 mg tablet 75 mg PO DAILY 04/01/19 07/03/19 clotrimazole 1 % topical cream 1 applic TP BID 04/01/19 07/03/19 fluticasone propionate 50 2 spray ROSE MARY DAILY 04/01/19 07/03/19 mcg/actuation nasal spray,suspension hydrocortisone 0.5 % topical cream 1 applic TP BID PRN 04/01/19 07/03/19 insulin detemir U-100 100 unit/mL 54 unit SC .am and pm ml 04/01/19 07/03/19 (3 mL) subcutaneous pen ketorolac 0.4 % eye drops 1 drp OP QID 04/01/19 07/03/19 levothyroxine 25 mcg tablet 25 mcg PO DAILY 04/01/19 07/03/19 losartan 100 mg tablet 100 mg PO DAILY 04/01/19 07/03/19 metformin 500 mg tablet 500 mg PO BID 04/01/19 07/03/19 mometasone 50 mcg/actuation nasal 2 spray ROSE MARY DAILY 04/01/19 07/03/19 spray nebulizers #1 each 04/01/19 05/19/19 nystatin 100,000 unit/gram topical 1 applic TP TID 04/01/19 07/03/19 powder oxygen-air delivery systems #1 04/01/19 05/19/19 fluoxetine 20 mg PO DAILY 05/29/19 07/03/19 levothyroxine 175 mcg PO DAILY 05/29/19 07/03/19 nitroglycerin [Nitrostat] 0.4 mg SUBLINGUAL PRN PRN 05/29/19 07/03/19 polyethylene glycol 3350 [Miralax] 17 g PO DAILY 05/29/19 07/03/19 Previous Rx's Medication Instructions Recorded omeprazole 40 mg PO BID #0 tab-cap 04/02/17 Allergies Allergy/AdvReac Type Severity Reaction Status Date / Time No Known Allergies Allergy Unverified 07/11/19 13:15 General [place]: 2 Review of Systems All systems reviewed & are unremarkable except as noted in HPI and below Constitutional Constitutional: Reports as per HPI, Denies chills, Denies fever(s) and Reports weakness Eyes Eyes: Denies blurry vision ENT Ears, Nose, Mouth, and Throat: Denies dizziness, Denies sore throat and Denies throat swelling Cardiovascular Cardiovascular: Denies chest pain and Denies dyspnea Respiratory Respiratory: Denies cough and Denies dyspnea Gastrointestinal Gastrointestinal: Denies abdominal pain, Denies diarrhea and Denies vomiting Genitourinary Genitourinary: Denies hematuria and Denies dysuria Musculoskeletal Musculoskeletal: Denies back pain and Denies numbness Integumentary/Breasts Skin/Breast: Denies lesions and Denies rash Neurologic Neurologic: Reports confusion, Denies dizziness, Denies localized weakness, Denies numbness and Reports weakness Psychiatric Psychiatric: Reports confusion Allergic/Immunologic Allergic/Immunologic: Denies throat swelling [facility] Social History Smoking/Tobacco Use Status: Never Alcohol Intake: former Drug use: Never Substance use type: does not use Details: Pt reports no alcohol since his heart attack 1995 Household members: none Housing: other Details: [facility] Number of Children: 2 current occupation: Lives at [facility]. Disabled since . Seatbelt use: always Do you feel safe at home: Yes Do you feel safe in your relationship?: Yes Additional Social history: lives alone, area on [place] comes in to assiste pt. Reports safety issue regarding leg giving out. Exam Const General: cooperative and ill appearing chronically Nutritional Appearance: obese morbidly obese Orientation: alert, awake and oriented x3 HENMT Head: normal to inspection Ears: hearing grossly normal bilaterally and external ears normal General nose exam: external nose normal Face and sinus: normal facial exam Mouth: oral mucosae normal Teeth and gingiva: dentition normal Throat: posterior oropharynx normal Eyes General: appearance normal, both eyes and all related structures Eyelids: eyelids normal EOM: EOM intact bilaterally Neck Neck: normal visual inspection Lymphatic: no lymphadenopathy noted Chest Chest: normal inspection of the chest Resp Effort & Inspection: normal respiratory effort and able to speak in complete sentences Auscultation: clear to auscultation bilaterally Cardio Rate: regular rate Rhythm: regular rhythm GI Inspection: normal to inspection and obesity Palpation: soft, not firm, no guarding, no hepatosplenomegaly, no masses and nontender Auscultation: normal bowel sounds Skin General skin exam: no rashes or lesions noted Neuro General: patient alert, patient awake and moves all extremities Cognition: normal cognition Speech: speech normal Gait: normal gait Motor: muscle tone normal throughout and strength 5/5 throughout Sensory Exam: no sensory deficits noted Extrem General: normal to inspection, full ROM and capillary refill normal Psych Appearance: grossly normal Mental Status: mental status grossly normal Speech and Movement: speech and movement normal Affect: normal affect Thought Process: normal Critical Care Time Critical Care Time Critical Care Time: Yes Total Critical Care Time: 45 Attestation: I spent 45 minutes of critical care time with this patient. This does not include time spent on separately reported billable procedures.
--- NOTE | 2019-07-11 13:00 | DI.CT_ITS ---
EXAM: CT HEAD WO CLINICAL HISTORY: CONFUSION, R/O ACUTE CVA. TECHNIQUE: Imaging Protocol: Axial computed tomography images with coronal and sagittal reformatted images were created and reviewed COMPARISON: CT HEAD WO from 12/27/2018 FINDINGS: Ventricles and Extra axial spaces: Normal in size and morphology for the patient's age. Hemorrhage: None. Cerebral parenchyma: There is an old infarct again seen involving the right parietal and occipital lo be. No new acute territorial infarct is identified. Midline shift: None. Brainstem/Cerebellum: Normal. Calvarium: Normal. Visualized Paranasal sinuses/Mastoids: Clear. Soft Tissues: Unremarkable. IMPRESSION: No acute intracranial process. The findings were discussed with the Emergency Department on the date of the examination. RADIATION DOSE DELIVERED: Total DLP DATA REPOSITORY: All CT scans at this facility are submitted to the National Radiology Data Registry (NRDR) Dose Index Registry (DIR) with the [employer] (A[employer]). RADIATION OPTIMIZATION: All CT scans at this facility use at least one of these dose optimization te chniques: automated exposure control; mA and/or kV adjustment per patient size (includes targeted exa ms where dose is matched to clinical indication); or iterative reconstruction.
[2019-07-11 13:56] LABS: Abs Immature Grans 0.01 k/cumm (0.0-0.09); Absolute Basophil Count 0.03 k/cumm (0.0-0.2); Absolute Eosinophil Count 0.11 k/cumm (0.0-0.7); Absolute Lymphocyte Count 1.67 k/cumm (1.2-3.4); Absolute Monocyte Count 0.42 k/cumm (0.11-0.7); Absolute Neutrophil Count 3.71 k/cumm (1.2-6.7); Basophils % 0.5; Eosinophils % 1.8; HCT 39.4 % (40.0-50.0); HGB 13.9 g/dL (13.5-17.5); Immature Grans % 0.2 %; Lymphocytes % 28.1; Mean Corp. HGB Concentration 35.3 g/dL (32.0-36.0); Mean Corpuscular Hemoglobin 29.6 pg (27.0-33.0); Mean Corpuscular Volume 83.8 fL (80-95); Mean Platelet Volume 9.8 fL (8.0-11.0); Monocytes % 7.1; Neutrophils % 62.3; Platelet Count 281 x1000/uL (130-400); White Blood Cell Count 5.95 k/cumm (4.4-10.8)
[2019-07-11 14:15] LABS: ALT 18 U/L (16-63); AST 20 U/L (15-37); Albumin 2.4 g/dL (3.4-5.0); Alkaline Phosphatase 84 U/L (46-116); Anion Gap 8.4 mmol/L (3-11); BUN 15 mg/dL (7-18); Bilirubin, Total 0.8 mg/dL (0.2-1.0); CO2 26.6 mmol/L (21.0-32.0); CREATININE 1.56 mg/dL (0.70-1.30); Calcium 8.8 mg/dL (8.5-10.1); Chloride 92 mmol/L (98-107); Estimated GFR 44.62 (mL/min/1.73m2); Magnesium 1.6 mg/dL (1.8-2.4); Potassium 3.4 mmol/L (3.5-5.1); Sodium 127 mmol/L (136-145); Total Protein 6.5 g/dL (6.4-8.2)
[2019-07-11 14:17] LABS: Glucose 603 mg/dL (74-106)
[2019-07-11] MEDS: Normal Saline 500 ML IV (14:26)
[2019-07-11 14:36] LABS: Bilirubin Negative (Negative); Blood Small (Negative); Clarity Clear (Clear); Glucose 500 mg/dL (Negative); Ketones Negative (Negative); Leukocyte Esterase Negative (Negative); Nitrite Negative (Negative); Specific Gravity 1.015 (1.005-1.025); Urobilinogen 0.2 EU/dL (Up TO 0.2); pH 6.5 (5-8)
[2019-07-11 14:47] LABS: Bacteria Rare HPF (Negative); C & S Indicated? No; Casts Negative LPF (Negative); Crystals Negative HPF (Negative); Epithelial Cells Rare HPF (Negative); Mucus Negative (Negative); WBC 0-2 HPF (0-5)
[2019-07-11] MEDS: POTASSIUM CHLORIDE 20 MEQ/100 ML BAG 50 MEQ IVPB (14:51)
[2019-07-11] MEDS: Aspirin 325 MG TAB PO (14:51)
[2019-07-11] MEDS: INSULIN REGULAR IN 0.9 % NACL 100 UNIT/100 ML BAG 6.28 UNIT IV (15:17)
[2019-07-11] MEDS: Clopidogrel 300 MG TAB PO (15:25)
[2019-07-11] MEDS: Normal Saline Flush 10 ML SYR IVP (15:46)
[2019-07-11] MEDS: MAGNESIUM SULFATE 2 GM/50 ML BAG IVPB (15:58)
[2019-07-11 16:18] LABS: PTT Activated 24.3 sec (21.0-31.4); Prothrombin Time 10.1 sec (9.3-11.0)
[2019-07-11 16:22] LABS: Troponin I 1.73 ng/Ml (<0.06)
--- NOTE | 2019-07-11 18:07 | NUR.NOTE ---
Nursing Note: Pt transferred to [facility] and left cane behind in room. Family called and will coal picker tomorrow. Patient name label placed on cane and in access for coal picker at main door tomorrow.
--- NOTE | 2019-07-11 21:39 | NUR.NOTE ---
Patients sister called to verify patients arrival to ED, I notified Serenity iHnkle (sister) that I am unable to give any information regarding the patients whereabouts because of HIPAA. I did inform her that I would call Casey Hinkle who is written on the HIPAA. After speaking with Casey i Notified him that Sher had been transferred to [facility]. Nursing Note:
== END 2019-07-11 17:20 | disposition short-term general hospital (02) ==
PROVIDERS: Emergency Provider Physician Assistant; PCP Registered Nurse
DX: I21.4 Non-ST elevation (NSTEMI) myocardial infarction (principal); E11.65 Type 2 diabetes mellitus with hyperglycemia; Z79.4 Long term (current) use of insulin; R41.82 Altered mental status, unspecified; R53.1 Weakness; I10 Essential (primary) hypertension; J44.9 Chronic obstructive pulmonary disease, unspecified; Z95.1 Presence of aortocoronary bypass graft; I25.10 Atherosclerotic heart disease of native coronary artery without angina pectoris; Z95.5 Presence of coronary angioplasty implant and graft; Z95.2 Presence of prosthetic heart valve
CPT/HCPCS: 36415; 36416; 80053; 82962; 93005; 96360; 96361; 96365; 96366; 96368; 99291; 70450; 71046; 81003; 81015; 83735; 84484; 85025; 85610; 85730; 93010; J3480

== ENCOUNTER 2019-07-18 14:00 | Emergency (ER) | payer OTHER, MEDICAID, SELFPAY ==
[2019-07-18] VITALS (17 sets, daily range): BP systolic 97–146; BP diastolic 55–93; PULSE 75–94; RESP 10–22; TEMP 36.2; O2SAT 95–100
--- NOTE | 2019-07-18 14:00 | DI.CT_ITS ---
EXAM: CT HEAD WO CLINICAL HISTORY: AMS. TECHNIQUE: Imaging Protocol: Axial computed tomography images with coronal and sagittal reformatted images were created and reviewed COMPARISON: CT CT HEAD WO from 07/11/2019 FINDINGS: Ventricles and Extra axial spaces: Normal in size and morphology for the patient's age. Hemorrhage: None. Cerebral parenchyma: Stable atrophy. Stable area of old infarct in the posteromedial right temporal and medial right occipital lobe. No evidence of acute infarct. Midline shift: None. Brainstem/Cerebellum: Normal. Calvarium: Normal. Visualized Paranasal sinuses/Mastoids: Clear. Soft Tissues: Unremarkable. IMPRESSION: No acute intracranial process. RADIATION DOSE DELIVERED: Total DLP DATA REPOSITORY: All CT scans at this facility are submitted to the National Radiology Data Registry (NRDR) Dose Index Registry (DIR) with the [employer] (ACR). RADIATION OPTIMIZATION: All CT scans at this facility use at least one of these dose optimization te chniques: automated exposure control; mA and/or kV adjustment per patient size (includes targeted exa ms where dose is matched to clinical indication); or iterative reconstruction.
--- NOTE | 2019-07-18 14:03 | W.ED.GENAD ---
Discharge Plan Disposition Patient Disposition: [facility] Condition: Serious Discharge Details Chief Complaint: AMS/LOC Clinical Impression: NSTEMI (non-ST elevated myocardial infarction), Hyperglycemia Primary Care Provider: ALEXUS LNA ED Provider: Lexii Worthy Home Meds and New Rx's Prescriptions: No Action mirtazapine 15 mg tablet 15 mg PO DAILY RF: 0 cholecalciferol (vitamin D3) 1,000 UNIT capsule 1,000 unit PO DAILY RF: 0 fluticasone propion-salmeterol [Advair Diskus] 1 EACH blister with device 1 puff Inhalation BID RF: 0 ProAir RespiClick 90 MCG aerosol powdr breath activated 90 mcg Inhalation Q4H PRN RF: 0 tamsulosin 0.4 MG capsule 0.4 mg PO DAILY RF: 0 insulin aspart U-100 [Novolog Flexpen U-100 Insulin] 100 UNIT/1 ML insulin pen See Rx Instructions .ROUTE .COMPLEX RF: 0 ketorolac 0.4 % drops 1 drp OP QID RF: 0 chlorhexidine gluconate [Periogard] 0.12 % mouthwash 15 ml MM BID RF: 0 (DME) nebulizers Misc See Rx Instructions .ROUTE .MEDSUPPLY Qty: 1 RF: 0 (DME) oxygen-air delivery systems Device See Rx Instructions .ROUTE .MEDSUPPLY Qty: 1 RF: 0 nystatin 100,000 unit/gram powder 1 applic TP TID RF: 0 clotrimazole 1 % cream 1 applic TP BID RF: 0 mometasone [Nasonex] 50 mcg/actuation spray,non-aerosol 2 spray ROSE MARY DAILY RF: 0 fluticasone propionate 50 mcg/actuation spray,suspension 2 spray ROSE MARY DAILY RF: 0 Levemir FlexTouch U-100 Insuln 100 unit/mL (3 mL) insulin pen 54 unit SC .am and pm RF: 0 metformin 500 mg tablet 500 mg PO BID RF: 0 budesonide-formoterol [Symbicort] 80-4.5 mcg/actuation HFA aerosol inhaler 2 puff IH Q12H RF: 0 clopidogrel [Plavix] 75 mg tablet 75 mg PO DAILY RF: 0 losartan 100 mg tablet 100 mg PO DAILY RF: 0 hydrocortisone 0.5 % cream 1 applic TP BID PRNRF: 0 levothyroxine 25 mcg tablet 25 mcg PO DAILY RF: 0 ezetimibe [Zetia] 10 MG tablet 10 mg PO QAM RF: 0 isosorbide mononitrate 120 MG tablet extended release 24 hr 120 mg PO QAM RF: 0 furosemide 40 MG tablet 40 mg PO DAILY RF: 0 atorvastatin [Lipitor] 80 MG tablet 80 mg PO HS RF: 0 ropinirole 2 MG tablet 0.5 mg PO HS RF: 0 multivitamin [Daily Multi-Vitamin] 1 EACH tablet 2 tab PO QAM RF: 0 metoprolol succinate 100 MG tablet extended release 24 hr 100 mg PO DAILY RF: 0 omeprazole 20 MG capsule,delayed release(DR/EC) 40 mg PO BID Qty: 0 RF: 0 tamsulosin 0.4 mg Capsule 0.4 mg PO DAILY RF: 0 aspirin 81 mg Tablet,Chewable 81 mg PO BID RF: 0 lisinopril 2.5 mg Tablet 2.5 mg PO DAILY RF: 0 gabapentin 300 mg Capsule 400 mg PO HS RF: 0 Slow-Mag 71.5 mg Tablet,Delayed Release (Dr/Ec) 71.5 mg PO DAILY RF: 0 polyethylene glycol 3350 [Miralax] 17 gram Powder In Packet 17 g PO DAILY RF: 0 levothyroxine 175 mcg Tablet 175 mcg PO DAILY RF: 0 nitroglycerin [Nitrostat] 0.4 mg Tablet, Sublingual 0.4 mg sublingual PRN PRNRF: 0 fluoxetine 20 mg Capsule 20 mg PO DAILY RF: 0 Medical Decision Making <WINDY Burns - Last Filed: 07/18/19 19:45> Patient is a pleasant 69-year-old gentleman with significant past medical history presenting today with chief complaint of confusion. Patient was recently discharged from [facility]. I was able to review these records. Patient is also endorsing hyperglycemia and states that his glucose was around 200 when he checked it this morning. He states that his baseline is between 2 and 300. However, he is presenting today after he was confused as to what medications to take in light of his glucose reading and he states that this inability to medicate himself is unusual. He is currently not on endorsing any physical irritants. Believes that the onset of confusion was around the time that he was discharged from [facility]. States that he was discharged a few days ago. Since being home, patient has begun to feel more off but is having a hard time defining this. He curently denies SERRANO, visual changes, CP, SOB, abdominal pain, N/V/D, back pain. On exam, patient is resting comfortably. He appears to be chronically ill but in no acute distress. He has multiple puncture wounds from his recent admission, all without signs of infection. He appears slightly dehydrated. His lungs are clear, normal cardiac auscultation, no lower extremity edema or calf tenderness. Abdominal exam is benign. Neurologic exam is intact aside from patient being confused as to what day of the week it is. Plan for CT, labs and reevaluation. I did review the notes from [facility]. Of note, the patient's A1c was 12. He was discharged on glargine 54 units nightly and aspart 15 units 3 times daily. Plan was for the patient to enter an assisted living home and this is supposed to be managed by her primary care provider. I will recheck the primary care provider and have also requested care management evaluate the patient. Patient's TSH was elevated with normal T4. He did have episodes of hypotension and medications were adjusted. At the time patient was transferred from here to [facility] there is concern for end STEMI as the patient had a troponin of 1.5. Their work-up there revealed that this troponin elevation was likely secondary to demand ischemia. Patient is also diagnosed with ischemic cardiomyopathy with an LVEF of 35%. Patient was noted to have chronic coronary artery disease. Patient is also treated for hypotension that to be secondary to dehydration. While admitted, the patient underwent a right heart catheterization. Was determined during the work-up that the patient did not have any evidence of acute lesion so medical treatment for ischemic cardiomyopathy was undergone. Patient discharged home with aspirin, Plavix, metoprolol, lisinopril and atorvastatin. Patient previously been on or Imdur but this was held secondary to his hypotension. In regard to the mental status of the patient when he was at [facility], they do note that the patient was unable to any helpful details regarding how he got to the hospital or why he might of sought care. This does have a question the patient's timeline as this confusion is likely baseline for the patient. They note that there was concern for the patient to be able to care for himself at home and the patient was agreeable to assisted living facility. Per the discharge note, patient was discharged home with home nursing assistance and PCP follow-up. However, the patient is reporting at this time that no assistance came to his home. With his baseline confusion, I am unclear as to what is actually taken place since the time of his discharge. I am able to see that the VNA referral was sent by [facility]. EKG was reviewed by Dr. Garcia. Patient is in a sinus rhythm with a rate of 86. He does have evidence of a right bundle branch block as well as T wave inversions which appear similar to his EKG dated 07/11/2019. He advised no acute ischemic changes on today's EKG. Contacted by the lab, troponin 32. Patient is denying CP, SOB, nausea, back pain. He continues to be resting comfortably. Unclear if this is from the cath although I would expect it to be downtrending faster as this was completed several days ago. Patient is on Plavix and ASA daily, with the patients confusion, I am unsure if he has taken these medications. Patient will be given dose of aspirin Remaining labs are reviewed. Sodium slightly low at 135. BUN is elevated 20. His creatinine is 1.46 with a GFR 48. This appears to be fairly baseline for the patient although his creatinine does fluctuate with likely baseline being around 1.35. Glucose is 326, this is baseline for the patient. Lactate is normal. Magnesium was 1.5, will replenish this here. AST is elevated at 87, is not been elevated historically. Troponin is elevated at 32. Albumin is low 2.5. TSH is elevated at 10.24 with a free T4 within normal limits. Patient does have protein in his urine, no ketones. Small amount of blood. This is not consistent with infection. Spoke with RONALDO Varner with cardiology at [facility]. She advised not to worry about it in regard to the troponin. She advised to address his current concerns and to not make anything of the troponin. I am concerned that this patient could be having a silent UT. Left heart cath was unable to be performed, he has poorly controlled DM as well as hx of CABG. Will repeat a 4 hour troponin and consult again with cardiology. I was able to speak with patients son, Duong, who advised that his father is baseline slightly confused but that this seems to have been worse since his recent admission although not as severe as when he was first transferred to [facility]. If the patient needed to be transferred, son requests that we consult with [facility] as he and his brother reside in [place]. Head CT reviewed by radiologist: FINDINGS: Ventricles and Extra axial spaces: Normal in size and morphology for the patient's age. Hemorrhage: None. Cerebral parenchyma: Stable atrophy. Stable area of old infarct in the posteromedial right temporal and medial right occipital lobe. No evidence of acute infarct. Midline shift: None. Brainstem/Cerebellum: Normal. Calvarium: Normal. Visualized Paranasal sinuses/Mastoids: Clear. Soft Tissues: Unremarkable. IMPRESSION: No acute intracranial process. CXR reviewed: FINDINGS: The heart is enlarged, unchanged. The pacemaker and proximal aortic stent as well as sternal wires are again noted. The lungs appear clear. No infiltrate, effusion or pulmonary edema is seen. IMPRESSION: Cardiomegaly. No acute pulmonary findings. Repeat ECG reviewed by Dr. Garcia, unchanged from previous. Repeat troponin elevated further at 42.54. Patient continues to be comfortable. Contacted [facility] cardiology, spoke with fellow Dr. Kohler. She knew the patient from the recent admission. She advised that a troponin of this level does not correlate with demand ischemia. She advised transfer to their facility for further intervention. We discussed that the patient was redosed with aspirin were unclear if he took his Plavix today or not. We will hold off at this time as he is currently asymptomatic. Tata nascimento phone # [phone] and # [phone]. Spoke with akosua nascimento regarding findings. They agree to transfer to [facility]. Spoke with Dr. Kohler again who accepts the patient in transfer. Accepting physician is Dr. Hi. Discussed transfer at length with the patient. He voiced understanding and wishes to proceed. Continues to be resting comfortably in the department. <Jose Garcia MD - Last Filed: 07/18/19 15:40> Patient seen, examined, discussed and records reviewed from recent admission and discharge from [facility]. I agree with her plan of care including consultation with cardiology. Please see her note regarding details of the case. HPI <WINDY Burns - Last Filed: 07/18/19 19:45> General Mode of arrival: ambulatory. Date/Time Provider Initiated Documentation: 07/18/19 14:03. Limitations to Documentation: altered mental status. Information obtained by: patient and RN notes reviewed. HPI Narrative: Patient is a pleasant 69 year old male presenting today with c/c of confusion. Patient has a lengthy past medical history including anxiety, depression, CAD status post CABG and stent placements, COPD, CVA, poorly controlled diabetes, hypertension, IVETTE, obesity. Patient was seen here recently at which time patient was sent to [facility] with concern for end STEMI as well as hyperglycemia. Patient is unclear as to the course while at [facility]. He is presenting today with concern for confusion. He states that he is been more confused as to the time as well as the medication she should be taking. He believes that somebody was supposed to be at home helping him after his discharge and states that nobody has come to see him as of yet. He does state that his sister picked up his medications that were prescribed for him at the time of discharge today and he states that he did take these but is concerned that he is not remembering to do so on a regular basis. He attributes the onset of his confusion to his discharge from [facility]. He denies any headache, visual change, weakness, sensory deficit, change in bowel or bladder habits, shortness of breath, chest pain, abdominal pain. No recent fever/chills or other new constitutional symptoms. Related Data Home Medications Medication Instructions Recorded Confirmed atorvastatin [Lipitor] 80 mg PO HS 01/05/14 07/18/19 ezetimibe [Zetia] 10 mg PO QAM 01/05/14 07/18/19 furosemide 40 mg PO DAILY 01/05/14 07/18/19 isosorbide mononitrate 120 mg PO QAM 01/05/14 07/18/19 multivitamin [Daily Multi-Vitamin] 2 tab PO QAM 01/05/14 07/18/19 ropinirole 0.5 mg PO HS 01/05/14 07/18/19 cholecalciferol (vitamin D3) 1,000 unit PO DAILY 04/21/15 07/18/19 metoprolol succinate 100 mg PO DAILY 04/02/17 07/18/19 omeprazole 40 mg PO BID #0 tab-cap 04/02/17 07/18/19 ProAir RespiClick 90 mcg INHALATION Q4H PRN 07/10/17 07/03/19 fluticasone propion-salmeterol 1 puff INHALATION BID disk 07/10/17 07/03/19 [Advair Diskus] insulin aspart U-100 [Novolog See Rx Instructions .ROUTE .COMPLEX 07/20/17 07/03/19 Flexpen U-100 Insulin] tamsulosin 0.4 mg PO DAILY tab-cap 07/20/17 07/18/19 mirtazapine 15 mg tablet 15 mg PO DAILY 07/23/18 07/18/19 gabapentin 400 mg PO HS 10/04/18 07/18/19 Slow-Mag 71.5 mg PO DAILY 10/18/18 07/18/19 budesonide-formoterol HFA 80 2 puff IH Q12H 04/01/19 07/03/19 mcg-4.5 mcg/actuation aerosol inhaler chlorhexidine gluconate 0.12 % 15 ml MM BID 04/01/19 07/03/19 mouthwash clopidogrel 75 mg tablet 75 mg PO DAILY 04/01/19 07/18/19 clotrimazole 1 % topical cream 1 applic TP BID 04/01/19 07/03/19 fluticasone propionate 50 2 spray ROSE MARY DAILY 04/01/19 07/03/19 mcg/actuation nasal spray,suspension hydrocortisone 0.5 % topical cream 1 applic TP BID PRN 04/01/19 07/03/19 insulin detemir U-100 100 unit/mL 54 unit SC .am and pm ml 04/01/19 07/18/19 (3 mL) subcutaneous pen ketorolac 0.4 % eye drops 1 drp OP QID 04/01/19 07/03/19 levothyroxine 25 mcg tablet 25 mcg PO DAILY 04/01/19 07/18/19 losartan 100 mg tablet 100 mg PO DAILY 04/01/19 07/03/19 metformin 500 mg tablet 500 mg PO BID 04/01/19 07/18/19 mometasone 50 mcg/actuation nasal 2 spray ROSE MARY DAILY 04/01/19 07/03/19 spray nebulizers #1 each 04/01/19 05/19/19 nystatin 100,000 unit/gram topical 1 applic TP TID 04/01/19 07/03/19 powder oxygen-air delivery systems #1 04/01/19 05/19/19 fluoxetine 20 mg PO DAILY 05/29/19 07/18/19 levothyroxine 175 mcg PO DAILY 05/29/19 07/18/19 nitroglycerin [Nitrostat] 0.4 mg SUBLINGUAL PRN PRN 05/29/19 07/03/19 polyethylene glycol 3350 [Miralax] 17 g PO DAILY 05/29/19 07/03/19 aspirin 81 mg PO BID 07/18/19 07/18/19 lisinopril 2.5 mg PO DAILY 07/18/19 07/18/19 tamsulosin 0.4 mg PO DAILY 07/18/19 07/18/19 Previous Rx's Medication Instructions Recorded omeprazole 40 mg PO BID #0 tab-cap 04/02/17 Allergies Allergy/AdvReac Type Severity Reaction Status Date / Time No Known Allergies Allergy Unverified 07/11/19 13:15 General DAYLIN: 3 Review of Systems <WINDY Burns - Last Filed: 07/18/19 19:45> Constitutional Constitutional: Reports as per HPI, Denies chills, Denies fatigue, Denies fever(s), Denies frequent falls, Denies headache(s), Denies snoring and Denies weakness Eyes Eyes: Reports as per HPI, Denies blurry vision, Denies change in vision and Reports photophobia ENT Ears, Nose, Mouth, and Throat: Denies vertigo, Denies headache(s) and Denies neck pain Cardiovascular Cardiovascular: Reports as per HPI, Denies chest pain, Denies lightheadedness, Denies radiating jaw, neck or arm pain, Denies dyspnea and Denies dyspnea on exertion Respiratory Respiratory: Reports as per HPI, Denies chest congestion, Denies cough, Denies dyspnea, Denies dyspnea on exertion, Denies snoring, Denies stridor and Denies wheezing Gastrointestinal Gastrointestinal: Reports as per HPI, Denies abdominal pain, Denies change in bowel habits, Denies nausea and Denies vomiting Genitourinary Genitourinary: Reports system reviewed and no additional complaints, except as documented (denies change in urinary habits) Musculoskeletal Musculoskeletal: Reports as per HPI, Denies back pain, Denies myalgias, Denies muscle cramps, Denies neck pain and Denies numbness Integumentary/Breasts Skin/Breast: Reports as per HPI and Denies rash Neurologic Neurologic: Reports as per HPI, Denies abnormal movements, Denies abnormal speech, Denies behavioral changes, Reports confusion, Denies vertigo, Denies frequent falls, Denies headache(s), Denies localized weakness, Denies numbness, Denies sensory deficit and Denies weakness Psychiatric Psychiatric: Denies behavioral changes and Reports confusion Endocrine Endocrine: Denies fatigue Allergic/Immunologic Allergic/Immunologic: Denies wheezing PFSH <WINDY Burns - Last Filed: 07/18/19 19:45> Medical History Anxiety with depression (Acute) Aortic valve replaced Back pain (Acute) CAD (coronary artery disease) COPD (chronic obstructive pulmonary disease) CVA (cerebral vascular accident) (Chronic) Diabetic neuropathy DM (diabetes mellitus) GERD (gastroesophageal reflux disease) (Chronic) H/O: HTN (hypertension) (Acute) Hematuria (Acute) History of bloody stools (Acute) HTN (hypertension) Hx of fall (Acute) Hyperlipidemia (Acute) Hypothyroidism Hypothyroidism (acquired) (Acute) Insomnia (Acute) Memory impairment (Acute) Obesity (Chronic) IVETTE (obstructive sleep apnea) IVETTE on CPAP (Chronic) Pacemaker Passive suicidal ideations (Acute) Perforated tympanic membrane (Acute) Polypharmacy (Acute) Proteinuria (Acute) Rash, skin (Acute) Renal insufficiency Tinea cruris (Acute) Surgical History Coronary Artery Bypass Gaft (CABG) Coronary Stent CABGx4 Pacemaker Replacement of aortic valve Social History Smoking/Tobacco Use Status: Never Alcohol Intake: former Drug use: Never Substance use type: does not use Details: Pt reports no alcohol since his heart attack 1995 Household members: none Housing: other Details: [facility] Number of Children: 2 current occupation: Lives at [facility]. Disabled since . Seatbelt use: always Do you feel safe at home: Yes Do you feel safe in your relationship?: Yes Additional Social history: lives alone, area on [facility] comes in to assiste pt. Reports safety issue regarding leg giving out. Exam <WINDY Burns - Last Filed: 07/18/19 19:45> Const General: cooperative, comfortable, no acute distress, well developed, well groomed and ill appearing chronically Nutritional Appearance: well nourished and obese Orientation: alert, awake, oriented to person, oriented to place and not oriented to time [facility] Head: normal to inspection, no palpable skull fracture, normocephalic and atraumatic Ears: hearing grossly normal bilaterally, external ears normal and TM's normal bilaterally General nose exam: external nose normal Mouth: oral mucosae normal and moist mucous membranes Throat: posterior oropharynx normal Eyes General: appearance normal, both eyes and all related structures Visual Fry: normal visual fry by confrontation Alignment and Position: alignment normal Periorbital: periorbital findings normal Eyelids: eyelids normal Sclera: sclerae normal Cornea: corneas normal Pupils: PERRL EOM: EOM intact bilaterally Neck Neck: normal visual inspection, full ROM, no lymphadenopathy, no meningeal signs and other (puncture site apperas well healed on right side) Resp Effort & Inspection: normal respiratory effort, able to speak in complete sentences and no respiratory distress Auscultation: clear to auscultation bilaterally, no rales, no rhonchi and no wheezes Cardio Rate: regular rate Rhythm: regular rhythm Heart Sounds: S1 normal and S2 normal GI Inspection: normal to inspection and non-distended Palpation: soft, no hepatosplenomegaly, not firm, no guarding, not rigid and nontender Percussion: normal to percussion Auscultation: normal bowel sounds Back/Spine/Pelvis Cervical Spine: normal cervical lordosis and cervical ROM normal Skin General skin exam: ecchymosis (multiple areas of ecchymosis surrounding puncture wound consistent with acc) Neuro General: patient alert, patient awake and patient oriented x3 Cranial Nerves: CN's II-XI intact bilaterally Cognition: normal cognition Speech: speech normal Gait: normal gait Motor: muscle tone normal throughout, strength 5/5 throughout, no pronator drift, no movement abnormalities noted and no fasciculations Sensory Exam: no sensory deficits noted Coordination: [id number] test normal, [id number] test normal, Romberg test normal, Does not sway with eyes open and rapid alternating movement UE normal Extrem General: normal to inspection, capillary refill normal, no pedal edema and no calf tenderness Psych Appearance: grossly normal and well kempt Mental Status: mental status grossly normal Speech and Movement: speech and movement normal
[2019-07-18 14:29] LABS: Lactate 1.2 mmol/L (0.6-1.4)
[2019-07-18 14:31] LABS: Abs Immature Grans 0.02 k/cumm (0.0-0.09); Absolute Basophil Count 0.04 k/cumm (0.0-0.2); Absolute Eosinophil Count 0.14 k/cumm (0.0-0.7); Absolute Lymphocyte Count 1.68 k/cumm (1.2-3.4); Absolute Monocyte Count 0.63 k/cumm (0.11-0.7); Absolute Neutrophil Count 4.09 k/cumm (1.2-6.7); Basophils % 0.6; Eosinophils % 2.1; HCT 39.5 % (40.0-50.0); HGB 13.2 g/dL (13.5-17.5); Immature Grans % 0.3 %; Lymphocytes % 25.5; Mean Corp. HGB Concentration 33.4 g/dL (32.0-36.0); Mean Corpuscular Hemoglobin 29.4 pg (27.0-33.0); Mean Platelet Volume 9.3 fL (8.0-11.0); Monocytes % 9.5; Platelet Count 269 x1000/uL (130-400); RBC 4.49 m/cumm (4.50-6.00)
[2019-07-18] MEDS: Normal Saline 1,000 ML 125 ML IV (14:33)
[2019-07-18 14:44] LABS: Prothrombin Time 10.2 sec (9.3-11.0)
[2019-07-18 14:47] LABS: Ammonia < 10 umol/L (11-32)
[2019-07-18 14:55] LABS: ALT 29 U/L (16-63); AST 87 U/L (15-37); Albumin 2.5 g/dL (3.4-5.0); Alkaline Phosphatase 73 U/L (46-116); Anion Gap 4.5 mmol/L (3-11); BUN 20 mg/dL (7-18); Bilirubin, Total 0.9 mg/dL (0.2-1.0); CO2 30.5 mmol/L (21.0-32.0); CREATININE 1.46 mg/dL (0.70-1.30); Calcium 8.7 mg/dL (8.5-10.1); Chloride 100 mmol/L (98-107); Estimated GFR 48.16 (mL/min/1.73m2); Glucose 326 mg/dL (74-106); Magnesium 1.5 mg/dL (1.8-2.4); Potassium 4.3 mmol/L (3.5-5.1); Sodium 135 mmol/L (136-145); TSH 10.24 uIU/mL (0.36-3.74); Total Protein 6.4 g/dL (6.4-8.2)
[2019-07-18 14:57] LABS: Troponin I 32.46 ng/Ml (<0.06)
--- NOTE | 2019-07-18 15:00 | DI.RAD_ITS ---
EXAM: XR CHEST 2V PA LATERAL CLINICAL HISTORY: elevated troponin TECHNIQUE: 2D digital imaging was performed. COMPARISON: No exams were available for comparison FINDINGS: The heart is enlarged, unchanged. The pacemaker and proximal aortic stent as well as sternal wires are again noted. The lungs appear clear. No infiltrate, effusion or pulmonary edema is seen. IMPRESSION: Cardiomegaly. No acute pulmonary findings. DATA REPOSITORY: RADIATION DOSE DELIVERED:
--- NOTE | 2019-07-18 15:00 | NUR.NOTE ---
critical value Trop. 32.46 07/18/2019 Nursing Note:
[2019-07-18 15:11] LABS: Bilirubin Negative (Negative); Blood Small (Negative); Clarity Clear (Clear); Glucose 250 mg/dL (Negative); Ketones Negative (Negative); Leukocyte Esterase Negative (Negative); Nitrite Negative (Negative); Specific Gravity 1.025 (1.005-1.025); Urobilinogen 0.2 EU/dL (Up TO 0.2); pH 5.5 (5-8)
[2019-07-18] MEDS: MAGNESIUM SULFATE 1 GM/100 ML BAG IVPB (15:13)
[2019-07-18 15:19] LABS: Bacteria Rare HPF (Negative); Crystals Negative HPF (Negative); Epithelial Cells Rare HPF (Negative); Mucus Trace (Negative); WBC 0-2 HPF (0-5)
[2019-07-18 15:20] LABS: C & S Indicated? No; Casts 0-2 Hyaline LPF (Negative)
[2019-07-18] MEDS: Aspirin 81 MG CHEW 324 MG CH (15:28)
[2019-07-18] MEDS: Normal Saline 500 ML IV (15:30)
[2019-07-18 15:31] LABS: FREE T4 1.15 ng/dL (0.76-1.46)
[2019-07-18 16:01] LABS: Troponin I 35.91 ng/Ml (<0.06)
--- NOTE | 2019-07-18 16:26 | CMPROGNOTE_ITS ---
- If Service Date Differs Date of service: 07/18/19 Time of Service: 16:26 Care Management Progress Note CM meets with Sher at the request of ED provider. Sher lives alone at the [facility]. He has two adult sons in [place] and has a brother and sister in the [place], [place] area. Sher reports he had a girlfriend but she of cancer a few years ago. He shares she had a cat that he took in after her . Sher is disabled due to a stroke and no longer drives. He receives ser vices through [facility] ([facility] Ontiver[facility]) and [place] [facility], but states his case management rn through [facility] recently left the agency and he has not yet met his new case management rn. Sher owns a FWW and an electric wheelchair/scooter but states the scooter is in need of a new battery. He states Franklyn from [facility] is working on getting a battery for him. Sher admits he sometimes feels very depressed and has periods of confusion at home. He is willing to consider moving to an assisted living facility, but would like it to be in the [place] or [place] area.
--- NOTE | 2019-07-18 16:26 | PDOC.ERCMPRO ---
- If Service Date Differs Date of service: 07/18/19 Time of Service: 16:26 Care Management Progress Note CM meets with Sher at the request of ED provider. Sher lives alone at the [facility]. He has two adult sons in [place] and has a brother and sister in the [place], [place] area. Sher reports he had a girlfriend but she of cancer a few years ago. He shares she had a cat that he took in after her . Sher is disabled due to a stroke and no longer drives. He receives services through [facility] ([facility]lyn Ontiveros) and [place] [facility], but states his case loader operator through [facility] recently left the agency and he has not yet met his new case loader operator. Sher owns a FWW and an electric wheelchair/scooter but states the scooter is in need of a new battery. He states Franklyn from [facility] is working on getting a battery for him. Sher admits he sometimes feels very depressed and has periods of confusion at home. He is willing to consider moving to an assisted living facility, but would like it to be in the [place] or [place] area.
[2019-07-18 17:55] LABS: Troponin I 42.54 ng/Ml (<0.06)
--- NOTE | 2019-07-18 19:10 | NUR.NOTE ---
Nursing Note: Pt resting on stretcher in NAD. Denies CP or SOB.
== END 2019-07-18 19:50 | disposition short-term general hospital (02) ==
PROVIDERS: Emergency Provider Physician Assistant; PCP Registered Nurse
DX: I21.4 Non-ST elevation (NSTEMI) myocardial infarction (principal); E11.65 Type 2 diabetes mellitus with hyperglycemia; Z79.4 Long term (current) use of insulin; E86.0 Dehydration; I25.10 Atherosclerotic heart disease of native coronary artery without angina pectoris; E11.22 Type 2 diabetes mellitus with diabetic chronic kidney disease; N18.9 Chronic kidney disease, unspecified; I12.9 Hypertensive chronic kidney disease with stage 1 through stage 4 chronic kidney disease, or unspecified chronic kidney disease; I25.5 Ischemic cardiomyopathy; Z95.5 Presence of coronary angioplasty implant and graft; Z95.1 Presence of aortocoronary bypass graft
CPT/HCPCS: 36415; 36416; 80053; 82962; 93005; 96361; 96365; 99285; 70450; 71046; 81003; 81015; 82140; 83605; 83735; 84439; 84443; 84484; 85025; 85610; 93010; J3475

== ENCOUNTER → 2019-08-14 11:37 | Outpatient (BNVA) | payer OTHER, MEDICAID, SELFPAY | PROVIDERS: PCP Registered Nurse; Referring Provider Registered Nurse; Visit Provider Nurse Practitioner Gerontology | DX: R35.0 Frequency of micturition (principal); R31.9 Hematuria, unspecified | CPT/HCPCS: 99213 ==

== ENCOUNTER → 2019-08-14 11:46 | Outpatient (BNVA) | payer OTHER, MEDICAID, SELFPAY | PROVIDERS: PCP Registered Nurse; Referring Provider Registered Nurse; Visit Provider Internal Medicine Cardiovascular Disease | DX: I25.119 Atherosclerotic heart disease of native coronary artery with unspecified angina pectoris (principal); Z95.0 Presence of cardiac pacemaker; Z95.2 Presence of prosthetic heart valve; I10 Essential (primary) hypertension; E11.42 Type 2 diabetes mellitus with diabetic polyneuropathy; Z79.4 Long term (current) use of insulin | CPT/HCPCS: 99203; 99214 ==

== ENCOUNTER 2019-08-21 12:24 | Emergency (ER) | payer OTHER, MEDICAID, SELFPAY ==
[2019-08-21] VITALS (129 sets, daily range): BP systolic 150–215; BP diastolic 99–162; PULSE 83–120; RESP 14–38; TEMP 36.2; O2SAT 94–100
--- NOTE | 2019-08-21 12:45 | DI.RAD_ITS ---
EXAM: XR PORTABLE CHEST AP CLINICAL HISTORY: SOB TECHNIQUE: 2D digital imaging was performed. COMPARISON: CR,XR XR PORTABLE CHEST AP from 07/03/2019 CR XR CHEST 2V PA LATERAL from 07/18/2019 FINDINGS: MEDIASTINUM: Normal. HEART: Normal. Stable aortic stent. PULMONARY VASCULATURE: Normal. LUNGS: Clear. PLEURAL SPACE: No pleural effusion or pneumothorax. BONE:Normal. Sternal wires are again seen. OTHER FINDINGS:Stable positioning of the pacing wires. IMPRESSION: No acute pulmonary findings. DATA REPOSITORY: RADIATION DOSE DELIVERED:
[2019-08-21 14:33] LABS: Abs Immature Grans 0.02 k/cumm (0.0-0.09); Absolute Basophil Count 0.03 k/cumm (0.0-0.2); Absolute Eosinophil Count 0.14 k/cumm (0.0-0.7); Absolute Lymphocyte Count 1.42 k/cumm (1.2-3.4); Absolute Neutrophil Count 4.02 k/cumm (1.2-6.7); Basophils % 0.5; Eosinophils % 2.3; HCT 39.5 % (40.0-50.0); HGB 13.1 g/dL (13.5-17.5); Immature Grans % 0.3 %; Lymphocytes % 23.5; Mean Corp. HGB Concentration 33.2 g/dL (32.0-36.0); Mean Corpuscular Hemoglobin 29.2 pg (27.0-33.0); Mean Corpuscular Volume 88.2 fL (80-95); Mean Platelet Volume 9.9 fL (8.0-11.0); Monocytes % 6.6; Neutrophils % 66.8; Platelet Count 275 x1000/uL (130-400); RBC 4.48 m/cumm (4.50-6.00); RBC Distribution Width 14.6 % (11.8-14.1); White Blood Cell Count 6.03 k/cumm (4.4-10.8)
[2019-08-21 14:43] LABS: ALT 20 U/L (16-63); AST 16 U/L (15-37); Albumin 2.6 g/dL (3.4-5.0); Alkaline Phosphatase 96 U/L (46-116); BUN 16 mg/dL (7-18); Bilirubin, Total 0.9 mg/dL (0.2-1.0); CREATININE 1.21 mg/dL (0.70-1.30); Calcium 8.5 mg/dL (8.5-10.1); Chloride 103 mmol/L (98-107); Estimated GFR 59.82 (mL/min/1.73m2); Glucose 310 mg/dL (74-106); NT-proBNP 5284 pg/mL (<300); Potassium 3.5 mmol/L (3.5-5.1); Sodium 140 mmol/L (136-145); Total Protein 6.9 g/dL (6.4-8.2); Troponin I < 0.05 ng/mL (<0.06)
[2019-08-21] MEDS: Furosemide 40 MG/4 ML VIAL IVP (15:27)
[2019-08-21 15:40] LABS: Bilirubin Negative (Negative); Blood Moderate (Negative); Clarity Clear (Clear); Glucose 500 mg/dL (Negative); Ketones Negative (Negative); Leukocyte Esterase Negative (Negative); Nitrite Negative (Negative); Specific Gravity 1.025 (1.005-1.025); Urobilinogen 0.2 EU/dL (Up TO 0.2)
--- NOTE | 2019-08-21 15:43 | ED.GENADUL_ITS ---
Discharge Plan Disposition Patient Disposition: HOME Condition: Stable Discharge Details Chief Complaint: SOB Clinical Impression: Chronic obstructive pulmonary disease Primary Care Provider: ALEXUS LAN ED Provider: Amparo Barboza Meds and New Rx's Prescriptions: New furosemide [Lasix] 20 mg tablet 20 mg PO DAILY 3 Days Qty: 3 RF: 0 Continued mirtazapine 15 mg tablet 15 mg PO DAILY RF: 0 cholecalciferol (vitamin D3) 1,000 UNIT capsule 1,000 unit PO DAILY RF: 0 fluticasone propion-salmeterol [Advair Diskus] 1 EACH blister with device 1 puff Inhalation BID RF: 0 ProAir RespiClick 90 MCG aerosol powdr breath activated 90 mcg Inhalation Q4H PRN RF: 0 tamsulosin 0.4 MG capsule 0.4 mg PO DAILY RF: 0 insulin aspart U-100 [Novolog Flexpen U-100 Insulin] 100 UNIT/1 ML insulin pen See Rx Instructions .ROUTE .COMPLEX RF: 0 ketorolac 0.4 % drops 1 drp OP QID RF: 0 chlorhexidine gluconate [Periogard] 0.12 % mouthwash 15 ml MM BID RF: 0 (DME) nebulizers Misc See Rx Instructions .ROUTE .MEDSUPPLY Qty: 1 RF: 0 (DME) oxygen-air delivery systems Device See Rx Instructions .ROUTE .MEDSUPPLY Qty: 1 RF: 0 nystatin 100,000 unit/gram powder 1 applic TP TID RF: 0 clotrimazole 1 % cream 1 applic TP BID RF: 0 mometasone [Nasonex] 50 mcg/actuation spray,non-aerosol 2 spray ROSE MARY DAILY RF: 0 fluticasone propionate 50 mcg/actuation spray,suspension 2 spray ROSE MARY DAILY RF: 0 Levemir FlexTouch U-100 Insuln 100 unit/mL (3 mL) insulin pen 54 unit SC .am and pm RF: 0 metformin 500 mg tablet 500 mg PO BID RF: 0 budesonide-formoterol [Symbicort] 80-4.5 mcg/actuation HFA aerosol inhaler 2 puff IH Q12H RF: 0 clopidogrel [Plavix] 75 mg tablet 75 mg PO DAILY RF: 0 losartan 100 mg tablet 100 mg PO DAILY RF: 0 hydrocortisone 0.5 % cream 1 applic TP BID PRNRF: 0 levothyroxine 25 mcg tablet 25 mcg PO DAILY RF: 0 ezetimibe [Zetia] 10 MG tablet 10 mg PO QAM RF: 0 isosorbide mononitrate 120 MG tablet extended release 24 hr 120 mg PO QAM RF: 0 furosemide 40 MG tablet 40 mg PO DAILY RF: 0 atorvastatin [Lipitor] 80 MG tablet 80 mg PO HS RF: 0 ropinirole 2 MG tablet 0.5 mg PO HS RF: 0 multivitamin [Daily Multi-Vitamin] 1 EACH tablet 2 tab PO QAM RF: 0 metoprolol succinate 100 MG tablet extended release 24 hr 100 mg PO DAILY RF: 0 omeprazole 20 MG capsule,delayed release(DR/EC) 40 mg PO BID Qty: 0 RF: 0 tamsulosin 0.4 mg Capsule 0.4 mg PO DAILY RF: 0 aspirin 81 mg Tablet,Chewable 81 mg PO BID RF: 0 lisinopril 2.5 mg Tablet 2.5 mg PO DAILY RF: 0 gabapentin 300 mg Capsule 400 mg PO HS RF: 0 Slow-Mag 71.5 mg Tablet,Delayed Release (Dr/Ec) 71.5 mg PO DAILY RF: 0 polyethylene glycol 3350 [Miralax] 17 gram Powder In Packet 17 g PO DAILY RF: 0 levothyroxine 175 mcg Tablet 175 mcg PO DAILY RF: 0 nitroglycerin [Nitrostat] 0.4 mg Tablet, Sublingual 0.4 mg sublingual PRN PRNRF: 0 fluoxetine 20 mg Capsule 20 mg PO DAILY RF: 0 Discharge Instructions Instructions: COPD (Chronic Obstructive Pulmonary Disease) (ED) Additional Instructions: Increase your lasix to 60 mg daily for the next 3 days. Rest activities as tolerated. Follow-up promptly with your primary care doctor for reevaluation. Your chest x-ray is reassuring today. Your labs today are reassuring. Your blood pressure remains elevated please have prompt follow-up with PCP for blood pressure recheck. Return for any worsening, concerns or alarming symptoms sooner if needed I can Referrals: ALEXUS LAN NP [Primary Care Provider] - Discharge Data Discharge Date/Time-TO BE ENTERED AT DEPARTURE: 08/21/19 16:54 Medical Decision Making Is a 69-year-old patient presenting for complaints of shortness of breath. Patient reports increase in exertional shortness of breath for the last 2 weeks. Patient reports symptoms feel significantly improved at rest. Patient denies any active chest pain. Patient denies any fevers, chills, nausea, vomiting. Patient does have a history of COPD, diabetes, hypertension, CAD, CVA. Patient has multiple comorbidities. Patient does report compliance with his daily medications. Patient reports using his inhalers normally. Patient reports this does seem like a COPD exacerbation. Patient denies fever, chills. Patient does report mild vague nausea today in addition to nausea noted 2 days ago. Patient has been eating and drinking without difficulty. No difficulty urinating, urgency, frequency or dysuria. Patient denies any change in bowels. Patient does report mild increase in swelling in his lower extremities compared to his baseline. Patient does describe orthopnea when lying flat. He does have a hospital bed in his position of comfort is sleeping upright. Patient has been sleeping without difficulty. Patient has clear breath sounds on exam. Patient has no significant increase in respiratory effort at this time. Patient does report shortness of breath with exertion. Patient reports this is typical of his COPD however patient does have obvious retention of fluid distally. Patient does report mild increase in fluid retention over the last few weeks. Patient reports symptoms have been notable in the last few weeks specifically dyspnea on exertion. Denies active chest pain or back pain. Patient denies any headache or dizziness. No fevers or chills recently. We will plan to check labs including a BNP given patient's complaints of shortness of breath and concern for fluid overload with increased peripheral edema present. Given patient's hypertension will check labs prior to administration of Lasix or albuterol as patient is in no apparent distress for sake of trying to avoid fluid movement into the lungs. Will check urinalysis. Will check portable chest as well as EKG. Differential diagnosis includes COPD exacerbation, CHF exacerbation, CAD remains in the differential however significantly less likely as patient does not have any diaphoresis complaints of chest pain symptoms have been intermittent for the last 2 weeks. Renal dysfunction, will check labs. Viral illness less likely given lack of infectious symptoms. Patient's EKG reveals sinus rhythm with a heart rate of 84. No ST elevation [place]. Reviewed with Dr. Persaud. Patient's labs revealed leukocytosis. Patient renal function is within normal limits. Patient's glucose is elevated at 310 however he reports he did not take his morning metformin. Patient's initial troponin is normal of note Patient's BNP is noted to be 5284. This is increased from approximately 2800 earlier this year. We will plan to give patient additional dose of Lasix IV. He did take his morning dose After Lasix infused patient was provided DuoNeb Chest x-ray reveals no acute pulmonary abnormalities. I suspect etiology of patient's symptoms are CHF exacerbation given patient's lab findings. Did recommend increase Lasix to an additional 20 mg daily for the next 3 days in addition to the 40 mg he currently takes. Patient reports he feels significantly improved. Patient is requesting discharge home at this time. Patient request discharge home and follow-up with PCP as an outpatient. The patient was stable and requested discharge. Prior to discharge, my usual and customary return precautions were reviewed with the patient - this included follow-up instructions and reasons to return to the Emergency Department if conditions worsens, does not improve as expected, or other new concerns arise. HPI General Date/Time Provider Initiated Documentation: 08/21/19 12:26 . HPI Narrative: Is a 69-year-old patient presenting for complaints of shortness of breath. Patient reports increase in exertional shortness of breath for the last 2 weeks. Patient reports symptoms feel significantly improved at rest. Patient denies any active chest pain. Patient denies any fevers, chills, nausea, vomiting. Patient does have a history of COPD, diabetes, hypertension, CAD, CVA. Patient has multiple comorbidities. Patient does report compliance with his daily medications. Patient reports using his inhalers normally. Patient reports this does seem like a COPD exacerbation. Patient denies fever, chills. Patient does report mild vague nausea today in addition to nausea noted 2 days ago. Patient has been eating and drinking without difficulty. No difficulty urinating, urgency, frequency or dysuria. Patient denies any change in bowels. Patient does report mild increase in swelling in his lower extremities compared to his baseline. Patient does describe orthopnea when lying flat. He does have a hospital bed in his position of comfort is sleeping upright. Patient has been sleeping without difficulty. Related Data Home Medications Medication Instructions Recorded Confirmed atorvastatin [Lipitor] 80 mg PO HS 01/05/14 08/14/19 ezetimibe [Zetia] 10 mg PO QAM 01/05/14 08/14/19 furosemide 40 mg PO DAILY 01/05/14 08/14/19 isosorbide mononitrate 120 mg PO QAM 01/05/14 08/14/19 multivitamin [Daily Multi-Vitamin] 2 tab PO QAM 01/05/14 08/14/19 ropinirole 0.5 mg PO HS 01/05/14 08/14/19 cholecalciferol (vitamin D3) 1,000 unit PO DAILY 04/21/15 08/14/19 metoprolol succinate 100 mg PO DAILY 04/02/17 08/14/19 omeprazole 40 mg PO BID #0 tab-cap 04/02/17 08/14/19 ProAir RespiClick 90 mcg INHALATION Q4H PRN 07/10/17 08/14/19 fluticasone propion-salmeterol 1 puff INHALATION BID disk 07/10/17 08/14/19 [Advair Diskus] insulin aspart U-100 [Novolog See Rx Instructions .ROUTE .COMPLEX 07/20/17 08/14/19 Flexpen U-100 Insulin] tamsulosin 0.4 mg PO DAILY tab-cap 07/20/17 08/14/19 mirtazapine 15 mg tablet 15 mg PO DAILY 07/23/18 08/14/19 gabapentin 400 mg PO HS 10/04/18 08/14/19 Slow-Mag 71.5 mg PO DAILY 10/18/18 08/14/19 budesonide-formoterol HFA 80 2 puff IH Q12H 04/01/19 08/14/19 mcg-4.5 mcg/actuation aerosol inhaler chlorhexidine gluconate 0.12 % 15 ml MM BID 04/01/19 08/14/19 mouthwash clopidogrel 75 mg tablet 75 mg PO DAILY 04/01/19 08/14/19 clotrimazole 1 % topical cream 1 applic TP BID 04/01/19 08/14/19 fluticasone propionate 50 2 spray ROSE MARY DAILY 04/01/19 08/14/19 mcg/actuation nasal spray,suspension hydrocortisone 0.5 % topical cream 1 applic TP BID PRN 04/01/19 08/14/19 insulin detemir U-100 100 unit/mL 54 unit SC .am and pm ml 04/01/19 08/14/19 (3 mL) subcutaneous pen ketorolac 0.4 % eye drops 1 drp OP QID 04/01/19 08/14/19 levothyroxine 25 mcg tablet 25 mcg PO DAILY 04/01/19 08/14/19 losartan 100 mg tablet 100 mg PO DAILY 04/01/19 08/14/19 metformin 500 mg tablet 500 mg PO BID 04/01/19 08/14/19 mometasone 50 mcg/actuation nasal 2 spray ROSE MARY DAILY 04/01/19 08/14/19 spray nebulizers #1 each 04/01/19 08/14/19 nystatin 100,000 unit/gram topical 1 applic TP TID 04/01/19 08/14/19 powder oxygen-air delivery systems #1 04/01/19 08/14/19 fluoxetine 20 mg PO DAILY 05/29/19 08/14/19 levothyroxine 175 mcg PO DAILY 05/29/19 08/14/19 nitroglycerin [Nitrostat] 0.4 mg SUBLINGUAL PRN PRN 05/29/19 08/14/19 polyethylene glycol 3350 [Miralax] 17 g PO DAILY 05/29/19 08/14/19 aspirin 81 mg PO BID 07/18/19 08/14/19 lisinopril 2.5 mg PO DAILY 07/18/19 08/14/19 tamsulosin 0.4 mg PO DAILY 07/18/19 08/14/19 furosemide [Lasix] 20 mg PO DAILY 3 Days #3 tab 08/21/19 Previous Rx's Medication Instructions Recorded omeprazole 40 mg PO BID #0 tab-cap 04/02/17 furosemide [Lasix] 20 mg PO DAILY 3 Days #3 tab 08/21/19 Allergies Allergy/AdvReac Type Severity Reaction Status Date / Time No Known Allergies Allergy Unverified 08/14/19 11:51 General Stated Complaint: SOB DAYLIN: 2 Review of Systems All systems reviewed & are unremarkable except as noted in HPI and below PFSH Medical History Anxiety with depression (Acute) Aortic valve replaced Back pain (Acute) CAD (coronary artery disease) COPD (chronic obstructive pulmonary disease) CVA (cerebral vascular accident) (Chronic) Diabetic neuropathy DM (diabetes mellitus) GERD (gastroesophageal reflux disease) (Chronic) H/O: HTN (hypertension) (Acute) Hematuria (Acute) History of bloody stools (Acute) HTN (hypertension) Hx of fall (Acute) Hyperlipidemia (Acute) Hypothyroidism Hypothyroidism (acquired) (Acute) Insomnia (Acute) Memory impairment (Acute) Obesity (Chronic) IVETTE (obstructive sleep apnea) IVETTE on CPAP (Chronic) Pacemaker Passive suicidal ideations (Acute) Perforated tympanic membrane (Acute) Polypharmacy (Acute) Proteinuria (Acute) Rash, skin (Acute) Renal insufficiency Tinea cruris (Acute) Social History Smoking/Tobacco Use Status: Never Alcohol Intake: former Drug use: Never Substance use type: does not use Details: Pt reports no alcohol since his heart attack 1995 Household members: none Housing: other Details: [facility] Number of Children: 2 current occupation: Lives at [facility]. Disabled since . Seatbelt use: always Do you feel safe at home: Yes Do you feel safe in your relationship?: Yes Additional Social history: lives alone, area on aging comes in to assiste pt. Reports safety issue regarding leg giving out. Exam Narrative Exam Narrative: CONST: Healthy appearing patient, in no acute distress. Well hydrated. Alert and oriented. HENMT: Head nomocephalic, normal to inspection. Atraumatic. Hearing grossly normal. Normal facial exam. Oral mucosa normal. Tounge normal. Dentition normal. Normal posterior oropharynx. Uvula midline. EYES: General normal appearance. Alignment normal. Eyelids normal. Conjunctiva normal. Sclera normal. NECK: Normal visual inspection. FROM. No lymphadenopathy. Trachea midline. No Midline tenderness. CHEST: Normal insepection of the chest. RESP: Normal respiratory effort. Speaking full sentences. No cough. No wheezing. No retractions. Clear to auscaltation. Breath sound equal and present bilaterally. CARDIO: No JVD. Normal PMI. Regular Rate. Regular Rhythm. Normal peripheral pulses. GI: Normal inspection of abdomen. No distension. Soft. Nontender. Bowel sounds present in all 4 quadrants. No rebound. No gaurding. MUSCULOSKELETAL: Normal Gait. FROM of all extremities. Distal neurovascularly intact. Sensation intact distally. SKIN: Normal. Dry. No rashes. NEURO: Alert and awake. Speech clear. PSYCH: Normal affect. Cooperative. Course Vital Signs Vital signs: Vital Signs Temperature 36.2 C L 08/21/19 12:29 Pulse 95 H 08/21/19 12:29 Respiratory Rate 18 08/21/19 12:29 Pulse Oximetry 98 08/21/19 12:29 Temperature 36.2 C L 08/21/19 12:29 Temperature Source Tympanic 08/21/19 12:29 Pulse 89 08/21/19 13:47 Respiratory Rate 17 08/21/19 14:26 Respiratory Effort 08/21/19 14:02 Respiratory Depth Normal 08/21/19 14:02 Respiratory Pattern Tachypnea 08/21/19 14:02 Blood Pressure 176/116 H 08/21/19 13:47 Blood Pressure Position Sitting 08/21/19 12:29 Pulse Oximetry 96 08/21/19 14:26 Oxygen Delivery Method Room Air 08/21/19 12:29 Oxygen Flow Rate 0 08/21/19 12:29 Pain Level 0 08/21/19 12:29 Lab/Test Results Lab/Test Results: Laboratory Tests Range/Units 08/21/19 08/21/19 08/21/19 13:50 13:50 15:32 WBC (4.4-10.8) k/cumm 6.03 RBC (4.50-6.00) m/cumm 4.48 L Hgb (13.5-17.5) g/dL 13.1 L Hct (40.0-50.0) % 39.5 L MCV (80-95) fL 88.2 MCH (27.0-33.0) pg 29.2 MCHC (32.0-36.0) g/dL 33.2 RDW (11.8-14.1) % 14.6 H Plt Count (130-400) x1000/uL 275 MPV (8.0-11.0) fL 9.9 Immature Gran % % 0.3 Neutrophils % 66.8 Lymphocytes % 23.5 Monocytes % 6.6 Eosinophils % 2.3 Basophils % 0.5 Absolute Neutrophils (1.2-6.7) k/cumm 4.02 Absolute Lymphocytes (1.2-3.4) k/cumm 1.42 Absolute Monocytes (0.11-0.7) k/cumm 0.40 Absolute Eosinophils (0.0-0.7) k/cumm 0.14 Absolute Basophils (0.0-0.2) k/cumm 0.03 Sodium (136-145) mmol/L 140 Potassium (3.5-5.1) mmol/L 3.5 Chloride (98-107) mmol/L 103 Carbon Dioxide (21.0-32.0) mmol/L 28.0 Anion Gap (3-11) mmol/L 9.0 BUN (7-18) mg/dL 16 Creatinine (0.70-1.30) mg/dL 1.21 Estimated GFR/1.73 m2 (mL/min/1.73m2) 59.82 Glucose (74-106) mg/dL 310 H Calcium (8.5-10.1) mg/dL 8.5 Total Bilirubin (0.2-1.0) mg/dL 0.9 AST (15-37) U/L 16 ALT (16-63) U/L 20 Alkaline Phosphatase (46-116) U/L 96 Troponin I (<0.06) ng/mL < 0.05 NT-Pro-B Natriuret Pep (<300) pg/mL 5284 H Total Protein (6.4-8.2) g/dL 6.9 Albumin (3.4-5.0) g/dL 2.6 L Urine Color (Yellow) Yellow Urine Clarity (Clear) Clear Urine pH (5-8) 7.0 Ur Specific [place] (1.005-1.025) 1.025 Urine Protein (Negative) mg/dL >=300 H Urine Ketones (Negative) mg/dL Negative Urine Blood (Negative) Moderate H Urine Nitrite (Negative) Negative Urine Bilirubin (Negative) Negative Urine Urobilinogen (Up TO 0.2) EU/dL 0.2 Ur Leukocyte Esterase (Negative) Negative Urine Glucose (Negative) mg/dL 500 H
[2019-08-21 15:47] LABS: Bacteria Negative HPF (Negative); C & S Indicated? No; Casts Negative LPF (Negative); Crystals Negative HPF (Negative); Epithelial Cells Negative HPF (Negative); Mucus Negative (Negative); Other Cells Negative (Negative); WBC 0-2 HPF (0-5)
[2019-08-21] MEDS: Albuterol/Ipratropium 3 ML UPD VIAL UPD (16:05)
--- NOTE | 2019-08-21 16:19 | ED.GENADUL_ITS ---
Discharge Plan Disposition Patient Disposition: HOME Condition: Stable Discharge Details Chief Complaint: SOB Clinical Impression: Chronic obstructive pulmonary disease Primary Care Provider: ALEXUS LAN ED Provider: Amparo Barboza Meds and New Rx's Prescriptions: New furosemide [Lasix] 20 mg tablet 20 mg PO DAILY 3 Days Qty: 3 RF: 0 Continued mirtazapine 15 mg tablet 15 mg PO DAILY RF: 0 cholecalciferol (vitamin D3) 1,000 UNIT capsule 1,000 unit PO DAILY RF: 0 fluticasone propion-salmeterol [Advair Diskus] 1 EACH blister with device 1 puff Inhalation BID RF: 0 ProAir RespiClick 90 MCG aerosol powdr breath activated 90 mcg Inhalation Q4H PRN RF: 0 tamsulosin 0.4 MG capsule 0.4 mg PO DAILY RF: 0 insulin aspart U-100 [Novolog Flexpen U-100 Insulin] 100 UNIT/1 ML insulin pen See Rx Instructions .ROUTE .COMPLEX RF: 0 ketorolac 0.4 % drops 1 drp OP QID RF: 0 chlorhexidine gluconate [Periogard] 0.12 % mouthwash 15 ml MM BID RF: 0 (DME) nebulizers Misc See Rx Instructions .ROUTE .MEDSUPPLY Qty: 1 RF: 0 (DME) oxygen-air delivery systems Device See Rx Instructions .ROUTE .MEDSUPPLY Qty: 1 RF: 0 nystatin 100,000 unit/gram powder 1 applic TP TID RF: 0 clotrimazole 1 % cream 1 applic TP BID RF: 0 mometasone [Nasonex] 50 mcg/actuation spray,non-aerosol 2 spray ROSE MARY DAILY RF: 0 fluticasone propionate 50 mcg/actuation spray,suspension 2 spray ROSE MARY DAILY RF: 0 Levemir FlexTouch U-100 Insuln 100 unit/mL (3 mL) insulin pen 54 unit SC .am and pm RF: 0 metformin 500 mg tablet 500 mg PO BID RF: 0 budesonide-formoterol [Symbicort] 80-4.5 mcg/actuation HFA aerosol inhaler 2 puff IH Q12H RF: 0 clopidogrel [Plavix] 75 mg tablet 75 mg PO DAILY RF: 0 losartan 100 mg tablet 100 mg PO DAILY RF: 0 hydrocortisone 0.5 % cream 1 applic TP BID PRNRF: 0 levothyroxine 25 mcg tablet 25 mcg PO DAILY RF: 0 ezetimibe [Zetia] 10 MG tablet 10 mg PO QAM RF: 0 isosorbide mononitrate 120 MG tablet extended release 24 hr 120 mg PO QAM RF: 0 furosemide 40 MG tablet 40 mg PO DAILY RF: 0 atorvastatin [Lipitor] 80 MG tablet 80 mg PO HS RF: 0 ropinirole 2 MG tablet 0.5 mg PO HS RF: 0 multivitamin [Daily Multi-Vitamin] 1 EACH tablet 2 tab PO QAM RF: 0 metoprolol succinate 100 MG tablet extended release 24 hr 100 mg PO DAILY RF: 0 omeprazole 20 MG capsule,delayed release(DR/EC) 40 mg PO BID Qty: 0 RF: 0 tamsulosin 0.4 mg Capsule 0.4 mg PO DAILY RF: 0 aspirin 81 mg Tablet,Chewable 81 mg PO BID RF: 0 lisinopril 2.5 mg Tablet 2.5 mg PO DAILY RF: 0 gabapentin 300 mg Capsule 400 mg PO HS RF: 0 Slow-Mag 71.5 mg Tablet,Delayed Release (Dr/Ec) 71.5 mg PO DAILY RF: 0 polyethylene glycol 3350 [Miralax] 17 gram Powder In Packet 17 g PO DAILY RF: 0 levothyroxine 175 mcg Tablet 175 mcg PO DAILY RF: 0 nitroglycerin [Nitrostat] 0.4 mg Tablet, Sublingual 0.4 mg sublingual PRN PRNRF: 0 fluoxetine 20 mg Capsule 20 mg PO DAILY RF: 0 Discharge Instructions Instructions: COPD (Chronic Obstructive Pulmonary Disease) (ED) Additional Instructions: Increase your lasix to 60 mg daily for the next 3 days. Rest activities as tolerated. Follow-up promptly with your primary care doctor for reevaluation. Your chest x-ray is reassuring today. Your labs today are reassuring. Your blood pressure remains elevated please have prompt follow-up with PCP for blood pressure recheck. Return for any worsening, concerns or alarming symptoms sooner if needed I can Referrals: ALEXUS LAN NP [Primary Care Provider] - Discharge Data Discharge Date/Time-TO BE ENTERED AT DEPARTURE: 08/21/19 16:54 Medical Decision Making 1621: Received patient from outgoing provider Neelam TEMPLE, patient is requesting to be discharged home, he does have a history of hypertension and is hypertensive upon initial exam, he does take metoprolol 100 mg p.o. daily. We will give him 100 mg metoprolol prior to discharge. Patient is alert and oriented, and has no chest pain. Patient instructed to increase Lasix to 60 mg for the next 3 days and follow-up with PCP. Lasix 20 mg tablets x3 tablets prescribed to add to his regimen for the next 3 days. Instructed by staff midwife/apprenticeship director on taking this medication. Patient verbalized understanding. Instructed to follow-up closely with primary care provider, strict return instructions discussed. [facility] General Date/Time Provider Initiated Documentation: 08/21/19 12:26 . Related Data Home Medications Medication Instructions Recorded Confirmed atorvastatin [Lipitor] 80 mg PO HS 01/05/14 08/14/19 ezetimibe [Zetia] 10 mg PO QAM 01/05/14 08/14/19 furosemide 40 mg PO DAILY 01/05/14 08/14/19 isosorbide mononitrate 120 mg PO QAM 01/05/14 08/14/19 multivitamin [Daily Multi-Vitamin] 2 tab PO QAM 01/05/14 08/14/19 ropinirole 0.5 mg PO HS 01/05/14 08/14/19 cholecalciferol (vitamin D3) 1,000 unit PO DAILY 04/21/15 08/14/19 metoprolol succinate 100 mg PO DAILY 04/02/17 08/14/19 omeprazole 40 mg PO BID #0 tab-cap 04/02/17 08/14/19 ProAir RespiClick 90 mcg INHALATION Q4H PRN 07/10/17 08/14/19 fluticasone propion-salmeterol 1 puff INHALATION BID disk 07/10/17 08/14/19 [Advair Diskus] insulin aspart U-100 [Novolog See Rx Instructions .ROUTE .COMPLEX 07/20/17 08/14/19 Flexpen U-100 Insulin] tamsulosin 0.4 mg PO DAILY tab-cap 07/20/17 08/14/19 mirtazapine 15 mg tablet 15 mg PO DAILY 07/23/18 08/14/19 gabapentin 400 mg PO HS 10/04/18 08/14/19 Slow-Mag 71.5 mg PO DAILY 10/18/18 08/14/19 budesonide-formoterol HFA 80 2 puff IH Q12H 04/01/19 08/14/19 mcg-4.5 mcg/actuation aerosol inhaler chlorhexidine gluconate 0.12 % 15 ml MM BID 04/01/19 08/14/19 mouthwash clopidogrel 75 mg tablet 75 mg PO DAILY 04/01/19 08/14/19 clotrimazole 1 % topical cream 1 applic TP BID 04/01/19 08/14/19 fluticasone propionate 50 2 spray ROSE MARY DAILY 04/01/19 08/14/19 mcg/actuation nasal spray,suspension hydrocortisone 0.5 % topical cream 1 applic TP BID PRN 04/01/19 08/14/19 insulin detemir U-100 100 unit/mL 54 unit SC .am and pm ml 04/01/19 08/14/19 (3 mL) subcutaneous pen ketorolac 0.4 % eye drops 1 drp OP QID 04/01/19 08/14/19 levothyroxine 25 mcg tablet 25 mcg PO DAILY 04/01/19 08/14/19 losartan 100 mg tablet 100 mg PO DAILY 04/01/19 08/14/19 metformin 500 mg tablet 500 mg PO BID 04/01/19 08/14/19 mometasone 50 mcg/actuation nasal 2 spray ROSE MARY DAILY 04/01/19 08/14/19 spray nebulizers #1 each 04/01/19 08/14/19 nystatin 100,000 unit/gram topical 1 applic TP TID 04/01/19 08/14/19 powder oxygen-air delivery systems #1 04/01/19 08/14/19 fluoxetine 20 mg PO DAILY 05/29/19 08/14/19 levothyroxine 175 mcg PO DAILY 05/29/19 08/14/19 nitroglycerin [Nitrostat] 0.4 mg SUBLINGUAL PRN PRN 05/29/19 08/14/19 polyethylene glycol 3350 [Miralax] 17 g PO DAILY 05/29/19 08/14/19 aspirin 81 mg PO BID 07/18/19 08/14/19 lisinopril 2.5 mg PO DAILY 07/18/19 08/14/19 tamsulosin 0.4 mg PO DAILY 07/18/19 08/14/19 furosemide [Lasix] 20 mg PO DAILY 3 Days #3 tab 08/21/19 Previous Rx's Medication Instructions Recorded omeprazole 40 mg PO BID #0 tab-cap 04/02/17 furosemide [Lasix] 20 mg PO DAILY 3 Days #3 tab 08/21/19 Allergies Allergy/AdvReac Type Severity Reaction Status Date / Time No Known Allergies Allergy Unverified 08/14/19 11:51 General Stated Complaint: SOB [place]: 2 [facility] Medical History Anxiety with depression (Acute) Aortic valve replaced Back pain (Acute) CAD (coronary artery disease) COPD (chronic obstructive pulmonary disease) CVA (cerebral vascular accident) (Chronic) Diabetic neuropathy DM (diabetes mellitus) GERD (gastroesophageal reflux disease) (Chronic) H/O: HTN (hypertension) (Acute) Hematuria (Acute) History of bloody stools (Acute) HTN (hypertension) Hx of fall (Acute) Hyperlipidemia (Acute) Hypothyroidism Hypothyroidism (acquired) (Acute) Insomnia (Acute) Memory impairment (Acute) Obesity (Chronic) IVETTE (obstructive sleep apnea) IVETTE on CPAP (Chronic) Pacemaker Passive suicidal ideations (Acute) Perforated tympanic membrane (Acute) Polypharmacy (Acute) Proteinuria (Acute) Rash, skin (Acute) Renal insufficiency Tinea cruris (Acute) Social History Smoking/Tobacco Use Status: Never Alcohol Intake: former Drug use: Never Substance use type: does not use Details: Pt reports no alcohol since his heart attack 1995 Household members: none Housing: other Details: [facility] Number of Children: 2 current occupation: Lives at [facility]. Disabled since . Seatbelt use: always Do you feel safe at home: Yes Do you feel safe in your relationship?: Yes Additional Social history: lives alone, [facility] comes in to assiste pt. Reports safety issue regarding leg giving out. Course Vital Signs Vital signs: Vital Signs Temperature 36.2 C L 08/21/19 12:29 Pulse 95 H 08/21/19 12:29 Respiratory Rate 18 08/21/19 12:29 Pulse Oximetry 98 08/21/19 12:29 Temperature 36.2 C L 08/21/19 12:29 Temperature Source Tympanic 08/21/19 12:29 Pulse 120 H 08/21/19 16:02 Pulse 86 08/21/19 15:50 Respiratory Rate 26 H 08/21/19 16:08 Respiratory Effort 08/21/19 14:02 Respiratory Depth Normal 08/21/19 14:02 Respiratory Pattern Tachypnea 08/21/19 14:02 Blood Pressure 190/162 H 08/21/19 16:02 Blood Pressure Mean 124 08/21/19 15:47 Blood Pressure Position Sitting 08/21/19 12:29 Pulse Oximetry 99 08/21/19 16:08 Oxygen Delivery Method Room Air 08/21/19 12:29 Oxygen Flow Rate 0 08/21/19 12:29 Pain Level 0 08/21/19 12:29 Lab/Test Results Lab/Test Results: Laboratory Tests Range/Units 08/21/19 08/21/19 08/21/19 13:50 13:50 15:32 WBC (4.4-10.8) k/cumm 6.03 RBC (4.50-6.00) m/cumm 4.48 L Hgb (13.5-17.5) g/dL 13.1 L Hct (40.0-50.0) % 39.5 L MCV (80-95) fL 88.2 MCH (27.0-33.0) pg 29.2 MCHC (32.0-36.0) g/dL 33.2 RDW (11.8-14.1) % 14.6 H Plt Count (130-400) x1000/uL 275 MPV (8.0-11.0) fL 9.9 Immature Gran % % 0.3 Neutrophils % 66.8 Lymphocytes % 23.5 Monocytes % 6.6 Eosinophils % 2.3 Basophils % 0.5 Absolute Neutrophils (1.2-6.7) k/cumm 4.02 Absolute Lymphocytes (1.2-3.4) k/cumm 1.42 Absolute Monocytes (0.11-0.7) k/cumm 0.40 Absolute Eosinophils (0.0-0.7) k/cumm 0.14 Absolute Basophils (0.0-0.2) k/cumm 0.03 Sodium (136-145) mmol/L 140 Potassium (3.5-5.1) mmol/L 3.5 Chloride (98-107) mmol/L 103 Carbon Dioxide (21.0-32.0) mmol/L 28.0 Anion Gap (3-11) mmol/L 9.0 BUN (7-18) mg/dL 16 Creatinine (0.70-1.30) mg/dL 1.21 Estimated GFR/1.73 m2 (mL/min/1.73m2) 59.82 Glucose (74-106) mg/dL 310 H Calcium (8.5-10.1) mg/dL 8.5 Total Bilirubin (0.2-1.0) mg/dL 0.9 AST (15-37) U/L 16 ALT (16-63) U/L 20 Alkaline Phosphatase (46-116) U/L 96 Troponin I (<0.06) ng/mL < 0.05 NT-Pro-B Natriuret Pep (<300) pg/mL 5284 H Total Protein (6.4-8.2) g/dL 6.9 Albumin (3.4-5.0) g/dL 2.6 L Urine Color (Yellow) Yellow Urine Clarity (Clear) Clear Urine pH (5-8) 7.0 Ur Specific [place] (1.005-1.025) 1.025 Urine Protein (Negative) mg/dL >=300 H Urine Ketones (Negative) mg/dL Negative Urine Blood (Negative) Moderate H Urine Nitrite (Negative) Negative Urine Bilirubin (Negative) Negative Urine Urobilinogen (Up TO 0.2) EU/dL 0.2 Ur Leukocyte Esterase (Negative) Negative Urine RBC (0-2) HPF 3-5 H Urine WBC (0-5) HPF 0-2 Ur Epithelial Cells (Negative) HPF Negative Urine Crystals (Negative) HPF Negative Urine Bacteria (Negative) HPF Negative Urine Casts (Negative) LPF Negative Urine Mucus (Negative) Negative Urine Other (Negative) Negative Ur Culture Indicated? No Urine Glucose (Negative) mg/dL 500 H
[2019-08-21] MEDS: Metoprolol 50 MG TAB 100 MG PO (16:52)
== END 2019-08-21 16:54 | disposition home or self-care (01) ==
LOC: ER 16:36
PROVIDERS: Physician Assistant; Emergency Provider Registered Nurse Emergency; PCP Registered Nurse
DX: J44.1 Chronic obstructive pulmonary disease with (acute) exacerbation (principal); R11.0 Nausea; E11.9 Type 2 diabetes mellitus without complications; Z79.4 Long term (current) use of insulin; I10 Essential (primary) hypertension
CPT/HCPCS: 36415; 36416; 80053; 82962; 93005; 94640; 96374; 99285; 71045; 81003; 81015; 83880; 84484; 85025; 93010; 99284; J1940; J7620

== ENCOUNTER → 2019-08-27 13:56 | Outpatient (BNVA) | payer OTHER, MEDICAID, SELFPAY | PROVIDERS: PCP Registered Nurse; Referring Provider Registered Nurse; Visit Provider Physician Assistant | DX: I49.5 Sick sinus syndrome (principal); Z45.018 Encounter for adjustment and management of other part of cardiac pacemaker; J44.9 Chronic obstructive pulmonary disease, unspecified; I10 Essential (primary) hypertension | CPT/HCPCS: 93280; 99211; 99213 ==

== ENCOUNTER 2019-09-02 09:36 | Emergency (ER) | payer OTHER, MEDICAID, SELFPAY ==
[2019-09-02 09:37] VITALS: PULSE 70; RESP 23; TEMP 36.7; O2SAT 95
--- NOTE | 2019-09-02 09:45 | DI.CT_ITS ---
EXAM: CT HEAD - STROKE PROTOCOL CLINICAL HISTORY: Generalized weakness. Question change in speech TECHNIQUE: COMPARISON: CT CT HEAD WO from 07/18/2019 FINDINGS: Noncontrast cranial CT was performed. There is moderate generalized cerebral atrophy. There is no e vidence of acute intracranial hemorrhage, mass effect, or midline shift. The orbital and temporal bone structures appear intact. Visualized paranasal sinuses and mastoid air cells are clear. IMPRESSION: No evidence of acute intracranial process.
--- NOTE | 2019-09-02 10:00 | DI.RAD_ITS ---
EXAM: XR CHEST 1V IN DI DEPT CLINICAL HISTORY: weakness TECHNIQUE: COMPARISON: CR XR PORTABLE CHEST AP from 08/21/2019 FINDINGS: Single upright portable view was obtained. There are multiple sternal sutures. There is a transveno us cardiac pacemaker in position. Cardiac size is mildly enlarged. Lungs are grossly clear and well expanded. No focal consolidation seen. IMPRESSION: No evidence of acute process.
--- NOTE | 2019-09-02 10:14 | ED.GENADUL_ITS ---
Discharge Plan Disposition Patient Disposition: HOME Condition: Good Discharge Details Chief Complaint: GenMedical Clinical Impression: Hypomagnesemia, Weakness Primary Care Provider: ALEXUS LAN ED Provider: Lexii Worthy Home Meds and New Rx's Prescriptions: Continued mirtazapine 15 mg tablet 15 mg PO DAILY RF: 0 ProAir RespiClick 90 MCG aerosol powdr breath activated 90 mcg Inhalation Q4H PRN PRNRF: 0 insulin aspart U-100 [Novolog Flexpen U-100 Insulin] 100 UNIT/1 ML insulin pen See Rx Instructions .ROUTE .COMPLEX RF: 0 ketorolac 0.4 % drops 1 drp OP QID RF: 0 chlorhexidine gluconate [Periogard] 0.12 % mouthwash 15 ml MM BID RF: 0 (DME) nebulizers Misc See Rx Instructions .ROUTE .MEDSUPPLY Qty: 1 RF: 0 (DME) oxygen-air delivery systems Device See Rx Instructions .ROUTE .MEDSUPPLY Qty: 1 RF: 0 nystatin 100,000 unit/gram powder 1 applic TP TID RF: 0 clotrimazole 1 % cream 1 applic TP BID RF: 0 mometasone [Nasonex] 50 mcg/actuation spray,non-aerosol 2 spray ROSE MARY DAILY RF: 0 Levemir FlexTouch U-100 Insuln 100 unit/mL (3 mL) insulin pen 54 unit SC .am and pm RF: 0 metformin 500 mg tablet 500 mg PO BID RF: 0 clopidogrel [Plavix] 75 mg tablet 75 mg PO DAILY RF: 0 losartan 100 mg tablet 100 mg PO DAILY RF: 0 hydrocortisone 0.5 % cream 1 applic TP BID PRNRF: 0 ezetimibe [Zetia] 10 MG tablet 10 mg PO QAM RF: 0 isosorbide mononitrate 120 MG tablet extended release 24 hr 120 mg PO QAM RF: 0 furosemide 40 MG tablet 40 mg PO DAILY RF: 0 atorvastatin [Lipitor] 80 MG tablet 80 mg PO HS RF: 0 ropinirole 2 MG tablet 2 mg PO HS RF: 0 multivitamin [Daily Multi-Vitamin] 1 EACH tablet 1 tab PO QAM RF: 0 metoprolol succinate 100 MG tablet extended release 24 hr 100 mg PO DAILY RF: 0 tamsulosin 0.4 mg Capsule 0.4 mg PO DAILY RF: 0 gabapentin 300 mg Capsule 400 mg PO HS RF: 0 Slow-Mag 71.5 mg Tablet,Delayed Release (Dr/Ec) 71.5 mg PO DAILY RF: 0 polyethylene glycol 3350 [Miralax] 17 gram Powder In Packet 17 g PO DAILY RF: 0 levothyroxine 175 mcg Tablet 175 mcg PO DAILY RF: 0 nitroglycerin [Nitrostat] 0.4 mg Tablet, Sublingual 0.4 mg sublingual PRN PRNRF: 0 fluoxetine 20 mg Capsule 20 mg PO DAILY RF: 0 cholecalciferol (vitamin D3) [Vitamin D3] 25 mcg (1,000 unit) Tablet 1,000 unit PO DAILY RF: 0 fluticasone propionate [Flonase Allergy Relief] 50 mcg/actuation [place],Suspension 2 spray INTRANASAL DAILY RF: 0 budesonide-formoterol [Symbicort] 80-4.5 mcg/actuation Hfa Aerosol Inhaler 2 puff INHALATION BID RF: 0 No Action omeprazole 20 MG capsule,delayed release(DR/EC) 40 mg PO DAILY RF: 0 Discharge Instructions Instructions: Weakness (ED), Hypomagnesemia (ED) Additional Instructions: Please continue your medications as previously prescribed. Please keep your upcoming appointment to have your wheelchair checked. In the interim, please continue with your other wheelchair you have at home, your walker or your canes. You have declined placement into a rehabilitation center today. Should you wish to pursue this for other after talking to your family, please contact your primary care to discuss further. If you develop any new or worsening symptoms please seek care urgently once again. Referrals: ALEXUS LAN NP [Primary Care Provider] - Discharge Data Discharge Date/Time-TO BE ENTERED AT DEPARTURE: 09/02/19 17:21 Medical Decision Making <WINDY Ferrera - Last Filed: 09/03/19 12:21> 69-year-old gentleman with extensive past medical history presents reporting generalized weakness, so weak that he is have difficulty speaking. He reports he went to bed at baseline and awoke like this morning around 9 AM. He was so weak that he slid himself to the ground in order not to fall. Patient is able to move his lower extremities against gravity but not able to hold for extended period of time. Otherwise his strength is 5 out of 5 body wide and he has no glaring neuro deficits. Patient is a rather vague and poor historian. Reports that he lives at home alone but does have some help with his sister. He reports that if he was to go home, going home with a wheelchair would likely be indicated. I was able to speak with the patient's sister who reports that she does not believe that he is safe at home any longer. Progressive weakness over the past 2 weeks, generalized in nature. Also reports that he does not having difficulty finding his words or even slurring his speech. She reports that occasionally his voice just goes out. This certainly appears to be more of a progressive weakness as opposed to an acute TIA, CVA. We will initiate a extensive work-up including laboratory values, urinalysis, chest x-ray, troponin, head CT. Patient be given 1 L IV fluid in the meantime. I did discuss the case with Dr. Persaud. I spoke more with the patient and his sister, he at some point had home health but then later declined. CT is unremarkable. Patient requesting food. Eating lunch without difficulty. Laboratory values reveal a white blood cell count of 6.36 hemoglobin 11.7 hematocrit 35.7. This is slightly lower than his baseline although he appears well, hemodynamically stable, denies black tarry stools or bright red blood in his stools. INR 1.1 creatinine 1.33, estimated GFR 53.63. Glucose 310. Calcium 8.5, mag 1.3, total bili 1.1, albumin 2.7 magnesium and albumin appear to be near baseline. TSH of 4.57, this appears better than baseline. Urinalysis without obvious signs of infection. Chest x-ray clear. I see no obvious emergent process, no glaring neuro deficit. I will reach out to care management to discuss our options as patient is likely not safe to go home alone. Care management involved in the case. Please see their note. Request a PT evaluation and COVID swab. Both ordered Medical Records Medical records reviewed: Yes I reviewed the patient's medical records. Imaging Data Radiologic Study: Attestation: I personally reviewed and interpreted this imaging study as follows: Radiologist's impression: Chest x-ray and head CT both read by radiology as negative Lab Data Lab results reviewed: Yes I reviewed the patient's lab results. Lab results narrative: Laboratory Tests Range/Units 09/02/19 09/02/19 09/02/19 09:56 09:56 10:10 WBC (4.4-10.8) k/cumm 6.36 RBC (4.50-6.00) m/cumm 4.03 L Hgb (13.5-17.5) g/dL 11.7 L Hct (40.0-50.0) % 35.7 L MCV (80-95) fL 88.6 MCH (27.0-33.0) pg 29.0 MCHC (32.0-36.0) g/dL 32.8 RDW (11.8-14.1) % 14.6 H Plt Count (130-400) x1000/uL 247 MPV (8.0-11.0) fL 10.0 Immature Gran % % 0.3 Neutrophils % 60.2 Lymphocytes % 28.1 Monocytes % 8.5 Eosinophils % 2.4 Basophils % 0.5 Absolute Neutrophils (1.2-6.7) k/cumm 3.83 Absolute Lymphocytes (1.2-3.4) k/cumm 1.79 Absolute Monocytes (0.11-0.7) k/cumm 0.54 Absolute Eosinophils (0.0-0.7) k/cumm 0.15 Absolute Basophils (0.0-0.2) k/cumm 0.03 PT (9.3-11.0) sec 11.1 H INR (0.9-1.1) 1.1 Sodium (136-145) mmol/L 138 Potassium (3.5-5.1) mmol/L 3.6 Chloride (98-107) mmol/L 100 Carbon Dioxide (21.0-32.0) mmol/L 30.1 Anion Gap (3-11) mmol/L 7.9 BUN (7-18) mg/dL 17 Creatinine (0.70-1.30) mg/dL 1.33 H Estimated GFR/1.73 m2 (mL/min/1.73m2) 53.63 Glucose (74-106) mg/dL 310 H Calcium (8.5-10.1) mg/dL 8.5 Magnesium (1.8-2.4) mg/dL 1.3 L Total Bilirubin (0.2-1.0) mg/dL 1.1 H AST (15-37) U/L 20 ALT (16-63) U/L 21 Alkaline Phosphatase (46-116) U/L 90 Troponin I (<0.06) ng/mL < 0.05 Total Protein (6.4-8.2) g/dL 6.3 L Albumin (3.4-5.0) g/dL 2.7 L TSH (0.36-3.74) uIU/mL Free T4 (0.76-1.46) ng/dL Urine Color (Yellow) Urine Clarity (Clear) Urine pH (5-8) Ur Specific [place] (1.005-1.025) Urine Protein (Negative) mg/dL Urine Ketones (Negative) mg/dL Urine Blood (Negative) Urine Nitrite (Negative) Urine Bilirubin (Negative) Urine Urobilinogen (Up TO 0.2) EU/dL Ur Leukocyte Esterase (Negative) Urine RBC (0-2) HPF Urine WBC (0-5) HPF Ur Epithelial Cells (Negative) HPF Urine Crystals (Negative) HPF Urine Bacteria (Negative) HPF Urine Casts (Negative) LPF Urine Mucus (Negative) Ur Culture Indicated? Urine Glucose (Negative) mg/dL Range/Units 09/02/19 09/02/19 09/02/19 10:10 10:10 12:43 WBC (4.4-10.8) k/cumm RBC (4.50-6.00) m/cumm Hgb (13.5-17.5) g/dL Hct (40.0-50.0) % MCV (80-95) fL MCH (27.0-33.0) pg MCHC (32.0-36.0) g/dL RDW (11.8-14.1) % Plt Count (130-400) x1000/uL MPV (8.0-11.0) fL Immature Gran % % Neutrophils % Lymphocytes % Monocytes % Eosinophils % Basophils % Absolute Neutrophils (1.2-6.7) k/cumm Absolute Lymphocytes (1.2-3.4) k/cumm Absolute Monocytes (0.11-0.7) k/cumm Absolute Eosinophils (0.0-0.7) k/cumm Absolute Basophils (0.0-0.2) k/cumm PT (9.3-11.0) sec INR (0.9-1.1) Sodium (136-145) mmol/L Potassium (3.5-5.1) mmol/L Chloride (98-107) mmol/L Carbon Dioxide (21.0-32.0) mmol/L Anion Gap (3-11) mmol/L BUN (7-18) mg/dL Creatinine (0.70-1.30) mg/dL Estimated GFR/1.73 m2 (mL/min/1.73m2) Glucose (74-106) mg/dL Calcium (8.5-10.1) mg/dL Magnesium (1.8-2.4) mg/dL Total Bilirubin (0.2-1.0) mg/dL AST (15-37) U/L ALT (16-63) U/L Alkaline Phosphatase (46-116) U/L Troponin I (<0.06) ng/mL < 0.05 Total Protein (6.4-8.2) g/dL Albumin (3.4-5.0) g/dL TSH (0.36-3.74) uIU/mL 4.57 H Free T4 (0.76-1.46) ng/dL 1.33 Urine Color (Yellow) Yellow Urine Clarity (Clear) Clear Urine pH (5-8) 6.5 Ur Specific [place] (1.005-1.025) 1.020 Urine Protein (Negative) mg/dL >=300 H Urine Ketones (Negative) mg/dL Negative Urine Blood (Negative) Small H Urine Nitrite (Negative) Negative Urine Bilirubin (Negative) Negative Urine Urobilinogen (Up TO 0.2) EU/dL 1.0 H Ur Leukocyte Esterase (Negative) Negative Urine RBC (0-2) HPF 0-2 Urine WBC (0-5) HPF 0-2 Ur Epithelial Cells (Negative) HPF Rare Urine Crystals (Negative) HPF Negative Urine Bacteria (Negative) HPF Negative Urine Casts (Negative) LPF Negative Urine Mucus (Negative) Negative Ur Culture Indicated? No Urine Glucose (Negative) mg/dL 250 H ECG Data Attestation: I personally reviewed and interpreted this ECG (s) as follows: Interpretation: EKG performed at 0 945, reviewed and interpreted with Dr. Persaud. Sinus rhythm. Right bundle branch block. Nonspecific T wave abnormality. No STEMI. <WINDY Burns - Last Filed: 09/02/19 17:41> Care transition to myself from Matt Finney PA-C, with physical therapy evaluation still pending. Patient was able to ambulate well around the department. After evaluation, physical therapy recommended home PT services. Care management has also been heavily involved with this patient. There was question about dispositioning this patient to a rehab facility versus home. Patient is adamant that he does not want to go to rehabilitation services. He would like to go home. He is now reporting that he does in fact have a wheelchair at home as well as a walker and cane. However, he does not typically feel that he needs to use the wheelchair in the house. He states that he is able to ambulate up the ramp into his house with his walker. His sister also corroborates this story. I did advise that he continue to work with physical therapy. He does have an appointment to get his motorized wheelchair fixed in 2 days. Patient was given return precautions. All his questions and concerns were addressed in his agreement this plan. HPI <WINDY Ferrera - Last Filed: 09/03/19 12:21> General Mode of arrival: EMS . Date/Time Provider Initiated Documentation: 09/02/19 09:38 . Limitations to Documentation: no limitations . Information obtained by: patient and EMS . HPI Narrative: This is a 69-year-old gentleman with significant past medical history that includes CAD, COPD, CVA, diabetes, diabetic neuropathy, hypertension, hypothyroidism, memory impairment, obesity, pacemaker, renal insufficiency, CABG, coronary stent, aortic valve replacement, anxiety, depression, presenting today via EMS for generalized weakness. He reports that he lives at home alone and typically walks with a walker or 2 canes. He reports that he went to bed last night at baseline and upon waking this morning at approximately 9 AM had generalized weakness in my whole body. He reports I am so tired I cannot even talk. He denies focal weakness, headache, visual changes, fever, chest pain, breath, abdominal pain, nausea, vomiting, numbness in his extremities. He does report some chronic tingling in his lower extremities secondary to his neuropathy. Patient tells me that he has had no recent illness or trauma. He has been eating well and sleeping normally. Apparently because of his generalized weakness he was unable to stand and instead slid himself to the floor in order not to injure himself. He denies any injury while sliding himself on the floor but then was too weak to get up off of the floor. Related Data Home Medications Medication Instructions Recorded Confirmed atorvastatin [Lipitor] 80 mg PO HS 01/05/14 09/03/19 ezetimibe [Zetia] 10 mg PO QAM 01/05/14 09/03/19 furosemide 40 mg PO DAILY 01/05/14 09/03/19 isosorbide mononitrate 120 mg PO QAM 01/05/14 09/03/19 multivitamin [Daily Multi-Vitamin] 1 tab PO QAM 01/05/14 09/03/19 ropinirole 2 mg PO HS 01/05/14 09/03/19 metoprolol succinate 100 mg PO DAILY 04/02/17 09/03/19 ProAir RespiClick 90 mcg INHALATION Q4H PRN PRN 07/10/17 09/03/19 insulin aspart U-100 [Novolog See Rx Instructions .ROUTE .COMPLEX 07/20/17 09/03/19 Flexpen U-100 Insulin] mirtazapine 15 mg tablet 15 mg PO DAILY 07/23/18 09/03/19 gabapentin 400 mg PO HS 10/04/18 09/03/19 Slow-Mag 71.5 mg PO DAILY 10/18/18 09/03/19 chlorhexidine gluconate 0.12 % 15 ml MM BID 04/01/19 09/03/19 mouthwash clopidogrel 75 mg tablet 75 mg PO DAILY 04/01/19 09/03/19 clotrimazole 1 % topical cream 1 applic TP BID 04/01/19 09/03/19 hydrocortisone 0.5 % topical cream 1 applic TP BID PRN 04/01/19 09/03/19 insulin detemir U-100 100 unit/mL 54 unit SC .am and pm ml 04/01/19 09/03/19 (3 mL) subcutaneous pen ketorolac 0.4 % eye drops 1 drp OP QID 04/01/19 09/03/19 losartan 100 mg tablet 100 mg PO DAILY 04/01/19 09/03/19 metformin 500 mg tablet 500 mg PO BID 04/01/19 09/03/19 mometasone 50 mcg/actuation nasal 2 spray ROSE MARY DAILY 04/01/19 09/03/19 spray nebulizers #1 each 04/01/19 08/27/19 nystatin 100,000 unit/gram topical 1 applic TP TID 04/01/19 09/03/19 powder oxygen-air delivery systems #1 04/01/19 08/27/19 fluoxetine 20 mg PO DAILY 05/29/19 09/03/19 levothyroxine 175 mcg PO DAILY 05/29/19 09/03/19 nitroglycerin [Nitrostat] 0.4 mg SUBLINGUAL PRN PRN 05/29/19 09/03/19 polyethylene glycol 3350 [Miralax] 17 g PO DAILY 05/29/19 09/03/19 tamsulosin 0.4 mg PO DAILY 07/18/19 09/03/19 budesonide-formoterol [Symbicort] 2 puff INHALATION BID 09/02/19 09/03/19 cholecalciferol (vitamin D3) 1,000 unit PO DAILY 09/02/19 09/03/19 [Vitamin D3] fluticasone propionate [Flonase 2 spray INTRANASAL DAILY 09/02/19 09/03/19 Allergy Relief] omeprazole 40 mg PO DAILY 09/03/19 09/03/19 Allergies Allergy/AdvReac Type Severity Reaction Status Date / Time No Known Allergies Allergy Unverified 09/02/19 09:44 General Stated Complaint: CVA/TIA [place]LIN: 2 Review of Systems <WINDY Ferrera - Last Filed: 09/03/19 12:21> Constitutional Constitutional: Denies fever(s) Eyes Eyes: Denies change in vision ENT Ears, Nose, Mouth, and Throat: Denies vertigo, Denies dizziness and Denies sore throat Cardiovascular Cardiovascular: Denies chest pain and Denies dyspnea Respiratory Respiratory: Denies chest congestion, Reports cough (Chronic, mild, dry) and Denies dyspnea Gastrointestinal Gastrointestinal: Denies abdominal pain, Denies nausea and Denies vomiting Genitourinary Genitourinary: Denies dysuria Musculoskeletal Musculoskeletal: Denies numbness and Reports tingling Integumentary/Breasts Skin/Breast: Denies rash Neurologic Neurologic: Denies vertigo, Denies dizziness, Denies numbness and Reports tingling PFSH <WINDY Ferrera - Last Filed: 09/03/19 12:21> Medical History Anxiety with depression (Acute) Aortic valve replaced Back pain (Acute) CAD (coronary artery disease) COPD (chronic obstructive pulmonary disease) CVA (cerebral vascular accident) (Chronic) Diabetic neuropathy DM (diabetes mellitus) GERD (gastroesophageal reflux disease) (Chronic) H/O: HTN (hypertension) (Acute) Hematuria (Acute) History of bloody stools (Acute) HTN (hypertension) Hx of fall (Acute) Hyperlipidemia (Acute) Hypothyroidism Hypothyroidism (acquired) (Acute) Insomnia (Acute) Memory impairment (Acute) Obesity (Chronic) IVETTE (obstructive sleep apnea) IVETTE on CPAP (Chronic) Pacemaker Passive suicidal ideations (Acute) Perforated tympanic membrane (Acute) Polypharmacy (Acute) Proteinuria (Acute) Rash, skin (Acute) Renal insufficiency Sinus node dysfunction (Acute) Tinea cruris (Acute) Surgical History Coronary Artery Bypass Gaft (CABG) Coronary Stent CABGx4 Pacemaker Replacement of aortic valve Family History Other Cancer Heart disease Social History Smoking/Tobacco Use Status: Never Alcohol Intake: former Drug use: Never Substance use type: does not use Details: Pt reports no alcohol since his heart attack 1995 Household members: none Housing: other Details: [facility] Number of Children: 2 current occupation: Lives at [employer]. Disabled since . Seatbelt use: always Do you feel safe at home: Yes Do you feel safe in your relationship?: Yes Additional Social history: lives alone, area on aging comes in to assiste pt. Reports safety issue regarding leg giving out. Exam <WINDY Ferrera - Last Filed: 09/03/19 12:21> Const General: cooperative, healthy appearing, comfortable and no acute distress Orientation: alert, awake, oriented to person, oriented to place and oriented to time (Patient knows it is August 2019, unsure of exact date) [facility] Head: normal to inspection, normocephalic and atraumatic Face and sinus: normal facial exam Mouth: moist mucous membranes Throat: posterior oropharynx normal Eyes General: appearance normal, both eyes and all related structures Alignment and Position: alignment normal Periorbital: periorbital findings normal Conjunctivae: conjunctivae normal Sclera: sclerae normal Cornea: corneas normal EOM: EOM intact bilaterally Direct ophthalmoscopy: normal light reflex Neck Neck: normal visual inspection, full ROM, no lymphadenopathy, no meningeal signs, trachea midline, supple and nontender Resp Effort & Inspection: normal respiratory effort and able to speak in complete sentences Auscultation: clear to auscultation bilaterally Cardio Rate: regular rate Rhythm: regular rhythm GI Palpation: soft, no guarding, not rigid and nontender Auscultation: normal bowel sounds Back/Spine/Pelvis Back: No back tenderness Skin General skin exam: no rashes or lesions noted Neuro General: patient alert, patient awake, oriented Patient Orientation: Person, Place and Time (August 2019, unsure of exact date), moves all extremities, no focal motor deficits and CN's II-XI intact bilaterally Cranial Nerves: CN's II-XI intact bilaterally Cognition: normal cognition Speech: abnormal speech garbled (Occasionally) Gait: other (Not tested) Motor: strength 5/5 throughout (Upper extremities), no pronator drift, no fasciculations and strength abnormal (4 out of 5 lower extremities) Sensory Exam: no sensory deficits noted Coordination: [id number] test normal and Does not sway with eyes open Extrem General: normal to inspection, full ROM, capillary refill normal, no pedal edema and no calf tenderness Psych Appearance: grossly normal Mental Status: mental status grossly normal Course <WINDY Ferrera - Last Filed: 09/03/19 12:21> Vital Signs Vital signs: Vital Signs Temperature 36.7 C 09/02/19 09:37 Pulse 70 09/02/19 09:37 Respiratory Rate 23 09/02/19 09:37 Pulse Oximetry 95 09/02/19 09:37 Temperature 36.7 C 09/02/19 09:37 Pulse 70 09/02/19 09:37 Respiratory Rate 23 09/02/19 09:37 Respiratory Effort Non-Labored 09/02/19 09:37 Blood Pressure Position Supine 09/02/19 09:37 Pulse Oximetry 95 09/02/19 09:37 Oxygen Delivery Method Room Air 09/02/19 09:37 Oxygen Flow Rate 0 09/02/19 09:37 Pain Level 0 09/02/19 09:37 Sign Out <WINDY Ferrera - Last Filed: 09/03/19 12:21> Sign Out Data: Sign Out Comment: Pending PT evaluation, final disposition set forth by the care management team. Last updated by Matt Finney PA at 09/02/19 16:04
[2019-09-02 10:22] LABS: Abs Immature Grans 0.02 k/cumm (0.0-0.09); Absolute Basophil Count 0.03 k/cumm (0.0-0.2); Absolute Eosinophil Count 0.15 k/cumm (0.0-0.7); Absolute Lymphocyte Count 1.79 k/cumm (1.2-3.4); Absolute Monocyte Count 0.54 k/cumm (0.11-0.7); Absolute Neutrophil Count 3.83 k/cumm (1.2-6.7); Basophils % 0.5; Eosinophils % 2.4; HCT 35.7 % (40.0-50.0); HGB 11.7 g/dL (13.5-17.5); Immature Grans % 0.3 %; Lymphocytes % 28.1; Mean Corp. HGB Concentration 32.8 g/dL (32.0-36.0); Mean Corpuscular Volume 88.6 fL (80-95); Monocytes % 8.5; Neutrophils % 60.2; Platelet Count 247 x1000/uL (130-400); RBC 4.03 m/cumm (4.50-6.00); RBC Distribution Width 14.6 % (11.8-14.1); White Blood Cell Count 6.36 k/cumm (4.4-10.8)
[2019-09-02 10:33] LABS: Bilirubin Negative (Negative); Blood Small (Negative); Clarity Clear (Clear); Glucose 250 mg/dL (Negative); Ketones Negative (Negative); Leukocyte Esterase Negative (Negative); Nitrite Negative (Negative); pH 6.5 (5-8)
[2019-09-02 10:34] LABS: INR 1.1 (0.9-1.1); Prothrombin Time 11.1 sec (9.3-11.0)
[2019-09-02 10:43] LABS: ALT 21 U/L (16-63); AST 20 U/L (15-37); Albumin 2.7 g/dL (3.4-5.0); Alkaline Phosphatase 90 U/L (46-116); Anion Gap 7.9 mmol/L (3-11); BUN 17 mg/dL (7-18); Bilirubin, Total 1.1 mg/dL (0.2-1.0); CO2 30.1 mmol/L (21.0-32.0); CREATININE 1.33 mg/dL (0.70-1.30); Calcium 8.5 mg/dL (8.5-10.1); Chloride 100 mmol/L (98-107); Estimated GFR 53.63 (mL/min/1.73m2); Glucose 310 mg/dL (74-106); Magnesium 1.3 mg/dL (1.8-2.4); Potassium 3.6 mmol/L (3.5-5.1); Sodium 138 mmol/L (136-145); Total Protein 6.3 g/dL (6.4-8.2)
[2019-09-02 10:44] LABS: Troponin I < 0.05 ng/mL (<0.06)
[2019-09-02 10:49] LABS: TSH (W/Ref FT4) 4.57 uIU/mL (0.36-3.74)
[2019-09-02 10:58] LABS: Bacteria Negative HPF (Negative); C & S Indicated? No; Casts Negative LPF (Negative); Crystals Negative HPF (Negative); Epithelial Cells Rare HPF (Negative); Mucus Negative (Negative); RBC 0-2 HPF (0-2); WBC 0-2 HPF (0-5)
[2019-09-02 11:08] LABS: FREE T4 1.33 ng/dL (0.76-1.46)
[2019-09-02 11:21] VITALS: BP 180/91; PULSE 70; RESP 20; O2SAT 95
--- NOTE | 2019-09-02 11:55 | NUR.NOTE ---
provided diabetic meal tray
[2019-09-02 12:59] VITALS: BP 150/72; PULSE 74; RESP 18; TEMP 36.6; O2SAT 95
[2019-09-02 13:04] LABS: Troponin I < 0.05 ng/mL (<0.06)
[2019-09-02 14:22] VITALS: BP 181/82; PULSE 82; RESP 24; O2SAT 96
--- NOTE | 2019-09-02 14:22 | NUR.NOTE ---
given water and voided in urinal
--- NOTE | 2019-09-02 15:45 | PT.INIE ---
Date of service: 09/02/19 Time of Service: 03:45 PT Notes Visit Reasons: [facility] Inpatient Initial Evaluation Date: 09/02/2019 Referring Doctor: Matt Finney MD PT Orders: PT CONSULT: Urgent. Limited ability Precautions: Fall. Standard. Activity as tolerated. Patient Profile/Admitting Diagnosis: Sher is a 69-year-old male who presented to the ED today with chief complaint of generalized weakness and difficulty with speech. ED referral was sent in order to assess safety of discharge to home. PMHX: Medical History Anxiety with depression (Acute) Aortic valve replaced Back pain (Acute) CAD (coronary artery disease) COPD (chronic obstructive pulmonary disease) CVA (cerebral vascular accident) (Chronic) Diabetic neuropathy DM (diabetes mellitus) GERD (gastroesophageal reflux disease) (Chronic) H/O: HTN (hypertension) (Acute) Hematuria (Acute) History of bloody stools (Acute) HTN (hypertension) Hx of fall (Acute) Hyperlipidemia (Acute) Hypothyroidism Hypothyroidism (acquired) (Acute) Insomnia (Acute) Memory impairment (Acute) Obesity (Chronic) IVETTE (obstructive sleep apnea) IVETTE on CPAP (Chronic) Pacemaker Passive suicidal ideations (Acute) Perforated tympanic membrane (Acute) Polypharmacy (Acute) Proteinuria (Acute) Rash, skin (Acute) Renal insufficiency Sinus node dysfunction (Acute) Tinea cruris (Acute) Surgical History Coronary Artery Bypass Gaft (CABG) Coronary Stent CABGx4 Pacemaker Replacement of aortic valve Social History/Home Situation: Patient lives on the second floor of the [facility]. He states that he has been limited to only doing indoor ambulation using his 4-wheeled walker and has a motorized wheelchair that he uses for outdoors but currently has battery issues. Equipment Owned/DME: Motorized wheelchair with battery issue, 4-wheeled walker Subjective: Sher was admant that he is gong home today no matter what. Patient reports that he has gradually been weak for the past couple of weeks and that this morning he was trying to sit up on his hospital bed but was too weak to support himself and struggle slowly slid himself down onto the floor. He states that he has had the bed for 7 years now and that the mattress is all worn out. He also said that he does not have a rails on the bed to stabilize himself with making it very challenging to move in and out. Objective: General Observation: Obese. Telemetry monitoring in place. Mental Status: Alert and oriented x4 Pain: Reported pain in his back when he transitioned to the sitting position from supine ROM: Right Upper Extremity: Shoulder Flexion WFL. Shoulder abduction WFL. Elbow flexion WFL. Wrist flexion WFL. Opening and closing of hand WFL. Left Upper Extremity: Shoulder Flexion WFL. Shoulder abduction WFL. Elbow flexion WFL. Wrist flexion WFL. Opening and closing of hand WFL. Right Lower Extremity: Hip flexion allows 10 degrees beyond 90 while seated on the edge with this ICU bed. Hip abduction WFL. Knee extension -100 degrees knee flexion 0-90 degrees. Ankle dorsiflexion WFL. Ankle plantarflexion WFL. Left Lower Extremity: Hip flexion allows 10 degrees beyond 90 while seated on the edge with this ICU bed. Hip abduction WFL. Knee flexion 0-90 degrees. Ankle dorsiflexion WFL. Ankle plantarflexion WFL. Ankle dorsiflexion WFL. Ankle plantarflexion WFL. Strength: Right Upper Extremity: Shoulder flexors 5/5. Shoulder abductors 5/5. Elbow flexors 5/5. Elbow extensors 5/5. Neon Sign Erector strong. Left Upper Extremity: Shoulder flexors 5/5. Shoulder abductors 5/5. Elbow flexors 5/5. Elbow extensors 5/5. Neon Sign Erector strong. Right Lower Extremity: Hip flexors 3-/5. Hip abductors 3+/5. Knee flexors 3-/5. Knee extensors 3-/5. Ankle dorsiflexors 3+/5. Ankle plantarflexors 3+/5. Left Lower Extremity: Hip flexors 3-/5. Hip abductors 3+/5. Knee flexors 3-/5. Knee extensors 3-/5. Ankle dorsiflexors 3+/5. Ankle plantarflexors 3+/5. Bed Mobility/Transfers: Rolling modified independent with bed rail Supine to sit modified independent with bed rail Sit to supine modified independent with bed rail Sit to stand SBA Stand to sit SBA Bed to chair SBA Chair to bed SBA Gait: Patient tolerated 50 feet of ICU hallway ambulation using the front-wheeled walker. Contact-guard assist. Vania decreased. Patient reports both knees being shaky and that he did not feel entirely safe. Balance: Static Sitting: Normal Dynamic Sitting: Normal Static Standing: Fair Dynamic Standing: Fair Special Tests: Mobility Limitations Standardized Measure [facility] AM-PAC 6 clicks Basic Mobility Inpatient Short Form: Raw Score: 18 CMS Score: 47% deficit Informed Consent/Education: Patient instructed in purpose of PT consult and plan of care. Assessment: Sher demonstrates generalized weakness and functional mobility decline requiring the use of a front wheeled walker, unsteadiness of gait, and difficulty with walking which increases his risk for falling at home. He also has equipment issues that home health physical therapy may urgently need to look into in order to ensure safety at home. Also will have the assistance of his sister once he goes home today to make sure that he stays safe and that assistance for his basic ADLs are performed. Patient presents with clinical signs and symptoms consistent with current/admitting diagnoses that have resulted to mobility limitations, gait instability, generalized weakness, and impairment of motor control as demonstrated by the following impairment level findings: 1. Decreased strength to B LE major muscle groups 2. Impaired sitting/standing balance 3. Impaired activity tolerance 4. Limitation of joint range of motion in B hips and knees Impairments are contributing to the following functional limitations: 1. Inability to safely ambulate without assistive device and physical assistance 2. Increase completion time for mobility ADL performance 3. Increased fall risk 4. Inability to negotiate steps alone safely Patient is assessed as a 09698 moderate complexity based on the following: History: 69-year-old male with impairment level findings, functional limitations, and past medical history as indicated above Examination: Demonstrable impairment in strength, balance, and mobility level with underlying impairments and functional limitations as documented above Presentation:Evolving Decision Makin moderate complexity Goals: N/A. PT eval only. Plan of Care/Treatment Plan: N/A. PT eval only. DISCHARGE RECOMMENDATIONS: Sher will benefit from using a regular wheelchair to get into his residence at the [facility] via ramp. His sister will be there to help him get into the apartment building. Home Health PT will be urgently needed in order to check the safety of his mattress and his hospital bed, bilateral rails will need to be installed to promote independence with bed mobility tasks and prevent near fall episodes. Home Health PT will also need to assess motorized wheelchair fit and management in order to ensure safe community ambulation. Sher states that he has an appointment with the [facility] in [place] on the of this month to inspect the motorized wheelchair battery. Finally, home health PT services will be needed in order to provide skilled services for functional mobility progression and fall prevention/reduction. TREATMENT CODE/TIME: 38901 x 30 minutes beginning at 3:45 PM. Thank you very much for this referral. Melissa Cavazos PT, DPT, CLT [facility] [place], [place]
--- NOTE | 2019-09-02 16:08 | NUR.NOTE ---
PT here to evaluate pt
[2019-09-02 16:51] VITALS: BP 181/85; PULSE 81; RESP 23; O2SAT 93
--- NOTE | 2019-09-02 17:09 | PDOC.ERCMPRO ---
- If Service Date Differs Date of service: 09/02/19 Time of Service: 17:09 Care Management Progress Note Sher was seen by CM at the request of the ED provider. He presented with weakness and verbalized an inability to care for himself at home. His sister also called the ED to share that she felt he was not safe to be at home alone.Sher is well known to [facility] and has many community supports. He is working with a block and case maker at [employer], Cheli Begum, and also with Valeria Ontiveros from [facility]. Sher stated that he realizes that he is getting weaker and that he needs help to care for himself. CM discussed short term rehab and Sher was willing at first, but later changed his mind. A PT evaluation was completed and Sher was deemed safe to go home with a wheelchair. At first he stated that he did not have one, but later stated that he did. CM communicated with both Valeria and Cheli and community efforts to ensure Sher's safety with a skilled nursing goal of an assisted living accomodation will continue. [employer] is working on a [employer] application at this time. Sher was discharged home with his sister with a plan for her to stay with him in his home.
[2019-09-03 02:31] LABS: COVID-19 RT-PCR UVMMC Result Negative (Negative)
== END 2019-09-02 17:21 | disposition home or self-care (01) ==
PROVIDERS: Physician Assistant; Emergency Provider Physician Assistant; PCP Registered Nurse
DX: E83.42 Hypomagnesemia (principal); R53.1 Weakness; I25.10 Atherosclerotic heart disease of native coronary artery without angina pectoris; Z95.5 Presence of coronary angioplasty implant and graft; Z79.4 Long term (current) use of insulin; Z60.2 Problems related to living alone; E11.22 Type 2 diabetes mellitus with diabetic chronic kidney disease; I12.9 Hypertensive chronic kidney disease with stage 1 through stage 4 chronic kidney disease, or unspecified chronic kidney disease; N18.9 Chronic kidney disease, unspecified; J44.9 Chronic obstructive pulmonary disease, unspecified; Z11.59 Encounter for screening for other viral diseases
CPT/HCPCS: 36415; 36416; 80053; 82962; 93005; 97162; 99285; U0003; 70450; 71045; 81003; 81015; 83735; 84439; 84443; 84484; 85025; 85610; 93010

== ENCOUNTER 2019-09-03 07:56 | Inpatient (IN) | payer OTHER, MEDICAID, SELFPAY ==
[2019-09-03] VITALS (81 sets, daily range): BP systolic 152–196; BP diastolic 74–174; PULSE 76–92; RESP 10–27; TEMP 36.2–37.3; O2SAT 92–97
--- NOTE | 2019-09-03 07:30 | DI.CT_ITS ---
EXAM: CT HEAD - STROKE PROTOCOL CLINICAL HISTORY: left side weakness/slurred speech TECHNIQUE: COMPARISON: CT CT HEAD - STROKE PROTOCOL from 09/02/2019 FINDINGS: Noncontrast cranial CT was performed. There is marked generalized cerebral atrophy. There are areas of decreased attenuation in right temporal occipital region consistent with old infarct. No evidenc e of acute intracranial hemorrhage mass effect or midline shift. Orbital and temporal bone structure s appear intact. Visualized paranasal sinuses and mastoid air cells are clear. IMPRESSION: No evidence of acute intracranial process. Additional evaluation with MRI may be considered if clini filomena appropriate considering the patient's acute symptomatology..
--- NOTE | 2019-09-03 08:21 | DI.RAD_ITS ---
EXAM: XR CHEST 1V IN DI DEPT CLINICAL HISTORY: possible stroke, r/o acute disease TECHNIQUE: COMPARISON: CR XR CHEST 1V IN DI DEPT from 09/02/[address] BRAIN NECK CTA from 09/03/2019 FINDINGS: The heart is enlarged. There is a transvenous cardiac pacemaker in position. There are mild diffuse pulmonary interstitial radiodensities consistent with mild CHF as noted on today's CT examination. IMPRESSION: Findings consistent with mild CHF. Today's CT examination showed bilateral pleural effusions which a re not appreciated on the plain film.
--- NOTE | 2019-09-03 08:29 | W.ED.GENAD ---
Discharge Plan Disposition Patient Disposition: [facility] INPATIENT Condition: Stable Discharge Details Chief Complaint: CVA/TIA Clinical Impression: Slurred speech, Facial droop, Generalized weakness Admit Date/Time: 09/03/19 15:02 Admit Provider: Risa Fleming Attending Provider: Risa Fleming Primary Care Provider: ALEXUS LAN ED Provider: Mounika Persaud Discharge Data Discharge Date/Time-TO BE ENTERED AT DEPARTURE: 09/03/19 16:30 Medical Decision Making 0815 -- 69-year-old male with a history of CAD, COPD, CVA, diabetes, diabetic neuropathy, hypertension, hypothyroidism, memory impairment, obesity, pacemaker, renal insufficiency, CABG, coronary stent, aortic valve replacement, anxiety, depression presents as stroke alert with left-sided facial droop, left arm and leg weakness upon awakening at 6 AM this morning. Last known normal 930 last night. Unknown timeframe of onset of symptoms. Patient sent directly to radiology for stat CT head which is negative for any acute process. Of note, patient was here yesterday for generalized weakness and slurred speech and had negative CT head, was recommended for possible rehab which patient declined and preferred discharged home with plan for motorized wheelchair. EKG notes a rate of 84, sinus, right bundle branch block, left anterior fascicular block with no acute change from previous EKG. On exam, patient has left facial droop, 4/5 muscle strength left upper extremity compared to 5/5 right upper extremity as well as symmetrical weakness to bilateral lower extremities 3/5 with subjective increase in weakness in left leg. He is oriented x3. Airway intact. Screening labs and chest x-ray ordered. Patient unable to obtain MRI due to pacemaker. Will refer for CTA brain and neck. 1015 -- CTA head and neck no obvious acute findings but unable to view the anterior temporal artery. Will discuss with [facility] neurology. 1530 --Long delay in neurology consult from [facility]. They have reviewed the images and do not see any obvious acute stroke. Recommend dual antiplatelet therapy. Case discussed with hospitalist accepts patient for admission. Patient will likely need rehab stay for chronic medical needs and generalized weakness. Medical Records Medical records reviewed: Yes I reviewed the patient's medical records. Imaging Data Radiologic Study: Radiologist's impression: CT HEAD - STROKE PROTOCOL CLINICAL HISTORY: left side weakness/slurred speech TECHNIQUE: COMPARISON: CT CT HEAD - STROKE PROTOCOL from 09/02/2019 FINDINGS: Noncontrast cranial CT was performed. There is marked generalized cerebral atrophy. There are areas of decreased attenuation in right temporal occipital region consistent with old infarct. No evidence of acute intracranial hemorrhage mass effect or midline shift. Orbital and temporal bone structures appear intact. Visualized paranasal sinuses and mastoid air cells are clear. IMPRESSION: No evidence of acute intracranial process. Additional evaluation with MRI may be considered if clinically appropriate considering the patient's acute symptomatology.. Lab Data Lab results reviewed: Yes I reviewed the patient's lab results. Labs: Laboratory Tests Range/Units 09/03/19 09/03/19 09/03/19 08:12 08:12 08:12 WBC (4.4-10.8) k/cumm 6.71 RBC (4.50-6.00) m/cumm 4.24 L Hgb (13.5-17.5) g/dL 12.6 L Hct (40.0-50.0) % 37.6 L MCV (80-95) fL 88.7 MCH (27.0-33.0) pg 29.7 MCHC (32.0-36.0) g/dL 33.5 RDW (11.8-14.1) % 14.7 H Plt Count (130-400) x1000/uL 268 MPV (8.0-11.0) fL 9.9 Immature Gran % % 0.3 Neutrophils % 64.4 Lymphocytes % 24.9 Monocytes % 7.6 Eosinophils % 2.5 Basophils % 0.3 Absolute Neutrophils (1.2-6.7) k/cumm 4.32 Absolute Lymphocytes (1.2-3.4) k/cumm 1.67 Absolute Monocytes (0.11-0.7) k/cumm 0.51 Absolute Eosinophils (0.0-0.7) k/cumm 0.17 Absolute Basophils (0.0-0.2) k/cumm 0.02 PT (9.3-11.0) sec 10.8 INR (0.9-1.1) 1.1 APTT (21.0-31.4) sec 25.3 Sodium (136-145) mmol/L 138 Potassium (3.5-5.1) mmol/L 3.9 Chloride (98-107) mmol/L 100 Carbon Dioxide (21.0-32.0) mmol/L 31.4 Anion Gap (3-11) mmol/L 6.6 BUN (7-18) mg/dL 15 Creatinine (0.70-1.30) mg/dL 1.23 Estimated GFR/1.73 m2 (mL/min/1.73m2) 58.69 Glucose (74-106) mg/dL 282 H Calcium (8.5-10.1) mg/dL 8.8 Magnesium (1.8-2.4) mg/dL 1.3 L Total Bilirubin (0.2-1.0) mg/dL 1.6 H AST (15-37) U/L 29 ALT (16-63) U/L 23 Alkaline Phosphatase (46-116) U/L 96 Creatine Kinase (39-308) U/L Troponin I (<0.06) ng/mL < 0.05 NT-Pro-B Natriuret Pep (<300) pg/mL 5983 H Total Protein (6.4-8.2) g/dL 6.9 Albumin (3.4-5.0) g/dL 2.8 L TSH (0.36-3.74) uIU/mL Urine Color (Yellow) Urine Clarity (Clear) Urine pH (5-8) Ur Specific [place] (1.005-1.025) Urine Protein (Negative) mg/dL Urine Ketones (Negative) mg/dL Urine Blood (Negative) Urine Nitrite (Negative) Urine Bilirubin (Negative) Urine Urobilinogen (Up TO 0.2) EU/dL Ur Leukocyte Esterase (Negative) Urine RBC (0-2) HPF Urine WBC (0-5) HPF Ur Epithelial Cells (Negative) HPF Urine Crystals (Negative) HPF Urine Bacteria (Negative) HPF Urine Casts (Negative) LPF Urine Mucus (Negative) Ur Culture Indicated? Urine Glucose (Negative) mg/dL Range/Units 09/03/19 09/03/19 09/03/19 08:12 08:12 10:18 WBC (4.4-10.8) k/cumm RBC (4.50-6.00) m/cumm Hgb (13.5-17.5) g/dL Hct (40.0-50.0) % MCV (80-95) fL MCH (27.0-33.0) pg MCHC (32.0-36.0) g/dL RDW (11.8-14.1) % Plt Count (130-400) x1000/uL MPV (8.0-11.0) fL Immature Gran % % Neutrophils % Lymphocytes % Monocytes % Eosinophils % Basophils % Absolute Neutrophils (1.2-6.7) k/cumm Absolute Lymphocytes (1.2-3.4) k/cumm Absolute Monocytes (0.11-0.7) k/cumm Absolute Eosinophils (0.0-0.7) k/cumm Absolute Basophils (0.0-0.2) k/cumm PT (9.3-11.0) sec INR (0.9-1.1) APTT (21.0-31.4) sec Sodium (136-145) mmol/L Potassium (3.5-5.1) mmol/L Chloride (98-107) mmol/L Carbon Dioxide (21.0-32.0) mmol/L Anion Gap (3-11) mmol/L BUN (7-18) mg/dL Creatinine (0.70-1.30) mg/dL Estimated GFR/1.73 m2 (mL/min/1.73m2) Glucose (74-106) mg/dL Calcium (8.5-10.1) mg/dL Magnesium (1.8-2.4) mg/dL Total Bilirubin (0.2-1.0) mg/dL AST (15-37) U/L ALT (16-63) U/L Alkaline Phosphatase (46-116) U/L Creatine Kinase (39-308) U/L 247 Troponin I (<0.06) ng/mL NT-Pro-B Natriuret Pep (<300) pg/mL Total Protein (6.4-8.2) g/dL Albumin (3.4-5.0) g/dL TSH (0.36-3.74) uIU/mL 5.32 H Urine Color (Yellow) Yellow Urine Clarity (Clear) Clear Urine pH (5-8) 7.0 Ur Specific [place] (1.005-1.025) 1.020 Urine Protein (Negative) mg/dL >=300 H Urine Ketones (Negative) mg/dL Trace H Urine Blood (Negative) Small H Urine Nitrite (Negative) Negative Urine Bilirubin (Negative) Negative Urine Urobilinogen (Up TO 0.2) EU/dL 0.2 Ur Leukocyte Esterase (Negative) Negative Urine RBC (0-2) HPF 5-10 H Urine WBC (0-5) HPF 0-2 Ur Epithelial Cells (Negative) HPF Rare Urine Crystals (Negative) HPF Negative Urine Bacteria (Negative) HPF Negative Urine Casts (Negative) LPF 0-2 coarse granular Urine Mucus (Negative) Negative Ur Culture Indicated? No Urine Glucose (Negative) mg/dL 500 H ECG Data Attestation: I personally reviewed and interpreted this ECG (s) as follows: Interpretation: Rate of 84, sinus, right bundle branch block. Left anterior fascicular block. No acute ST elevation or depression. NC 180. QTc 504. QRS 152. HPI General Mode of arrival: EMS. Date/Time Provider Initiated Documentation: 09/03/19 08:09. Limitations to Documentation: no limitations. Information obtained by: patient and EMS. HPI Narrative: Patient is a 69-year-old male with a h/o CAD, COPD, CVA, diabetes, diabetic neuropathy, hypertension, hypothyroidism, memory impairment, obesity, pacemaker, renal insufficiency, CABG, coronary stent, aortic valve replacement, anxiety, depression who presents to the ED as a possible stroke alert. At 6 AM this morning, patient awoke to go to the bathroom and noticed left facial droop, slurred speech, and left leg weakness when attempting to get out of bed. Patient states he was too weak and was able to lower himself to the ground. Patient made on the ground until he contacted his sister who contacted EMS. Upon EMS arrival, glucose in the 200s, and blood pressure hypertensive at 207/112. Patient states he has not taken any of his regular medications yesterday or today. Patient was seen here yesterday initially as a stroke alert and was found to have generalized weakness and slurred speech with a negative CT head and was eventually able to ambulate around the ED and prefer discharge to home instead of rehab with plans for a motorized wheelchair. Patient states now he understands that he is unable to go home and care for himself at this time. Patient denies any fever, headache, dizziness, chest pain, shortness of breath. Related Data Home Medications Medication Instructions Recorded Confirmed atorvastatin [Lipitor] 80 mg PO HS 01/05/14 09/03/19 ezetimibe [Zetia] 10 mg PO QAM 01/05/14 09/03/19 furosemide 40 mg PO DAILY 01/05/14 09/03/19 isosorbide mononitrate 120 mg PO QAM 01/05/14 09/03/19 multivitamin [Daily Multi-Vitamin] 1 tab PO QAM 01/05/14 09/03/19 ropinirole 2 mg PO HS 01/05/14 09/03/19 metoprolol succinate 100 mg PO DAILY 04/02/17 09/03/19 ProAir RespiClick 90 mcg INHALATION Q4H PRN PRN 07/10/17 09/03/19 insulin aspart U-100 [Novolog See Rx Instructions .ROUTE .COMPLEX 07/20/17 09/03/19 Flexpen U-100 Insulin] mirtazapine 15 mg tablet 15 mg PO DAILY 07/23/18 09/03/19 gabapentin 400 mg PO HS 10/04/18 09/03/19 Slow-Mag 71.5 mg PO DAILY 10/18/18 09/03/19 chlorhexidine gluconate 0.12 % 15 ml MM BID 04/01/19 09/03/19 mouthwash clopidogrel 75 mg tablet 75 mg PO DAILY 04/01/19 09/03/19 clotrimazole 1 % topical cream 1 applic TP BID 04/01/19 09/03/19 hydrocortisone 0.5 % topical cream 1 applic TP BID PRN 04/01/19 09/03/19 insulin detemir U-100 100 unit/mL 54 unit SC .am and pm ml 04/01/19 09/03/19 (3 mL) subcutaneous pen ketorolac 0.4 % eye drops 1 drp OP QID 04/01/19 09/03/19 losartan 100 mg tablet 100 mg PO DAILY 04/01/19 09/03/19 metformin 500 mg tablet 500 mg PO BID 04/01/19 09/03/19 mometasone 50 mcg/actuation nasal 2 spray ROSE MARY DAILY 04/01/19 09/03/19 spray nebulizers #1 each 04/01/19 08/27/19 nystatin 100,000 unit/gram topical 1 applic TP TID 04/01/19 09/03/19 powder oxygen-air delivery systems #1 04/01/19 08/27/19 fluoxetine 20 mg PO DAILY 05/29/19 09/03/19 levothyroxine 175 mcg PO DAILY 05/29/19 09/03/19 nitroglycerin [Nitrostat] 0.4 mg SUBLINGUAL PRN PRN 05/29/19 09/03/19 polyethylene glycol 3350 [Miralax] 17 g PO DAILY 05/29/19 09/03/19 tamsulosin 0.4 mg PO DAILY 07/18/19 09/03/19 budesonide-formoterol [Symbicort] 2 puff INHALATION BID 09/02/19 09/03/19 cholecalciferol (vitamin D3) 1,000 unit PO DAILY 09/02/19 09/03/19 [Vitamin D3] fluticasone propionate [Flonase 2 spray INTRANASAL DAILY 09/02/19 09/03/19 Allergy Relief] omeprazole 40 mg PO DAILY 09/03/19 09/03/19 Allergies Allergy/AdvReac Type Severity Reaction Status Date / Time No Known Allergies Allergy Unverified 09/02/19 09:44 General Stated Complaint: CVA/TIA [place]: 2 Review of Systems All systems reviewed & are unremarkable except as noted in HPI and below Constitutional Constitutional: Reports as per HPI, Denies chills and Denies fever(s) Eyes Eyes: Denies blurry vision ENT Ears, Nose, Mouth, and Throat: Denies dizziness, Denies sore throat and Denies throat swelling Cardiovascular Cardiovascular: Denies chest pain and Denies dyspnea Respiratory Respiratory: Denies cough and Denies dyspnea Gastrointestinal Gastrointestinal: Denies abdominal pain, Denies diarrhea and Denies vomiting Genitourinary Genitourinary: Denies hematuria and Denies dysuria Musculoskeletal Musculoskeletal: Denies back pain and Denies numbness Integumentary/Breasts Skin/Breast: Denies lesions and Denies rash Neurologic Neurologic: Denies dizziness, Reports localized weakness and Denies numbness Allergic/Immunologic Allergic/Immunologic: Denies throat swelling [facility] Medical History (Updated 09/03/19 @ 19:12 by Mounika Persaud DO) Anxiety with depression (Acute) Aortic valve replaced Back pain (Acute) CAD (coronary artery disease) COPD (chronic obstructive pulmonary disease) CVA (cerebral vascular accident) (Chronic) Diabetic neuropathy DM (diabetes mellitus) GERD (gastroesophageal reflux disease) (Chronic) H/O: HTN (hypertension) (Acute) Hematuria (Acute) History of bloody stools (Acute) HTN (hypertension) Hx of fall (Acute) Hyperlipidemia (Acute) Hypothyroidism Hypothyroidism (acquired) (Acute) Insomnia (Acute) Memory impairment (Acute) Obesity (Chronic) IVETTE (obstructive sleep apnea) IVETTE on CPAP (Chronic) Pacemaker Passive suicidal ideations (Acute) Perforated tympanic membrane (Acute) Polypharmacy (Acute) Proteinuria (Acute) Rash, skin (Acute) Renal insufficiency Sick sinus syndrome (Acute) Sinus node dysfunction (Acute) Tinea cruris (Acute) Surgical History (Updated 09/03/19 @ 18:31 by Risa Fleming MD) Coronary Artery Bypass Gaft (CABG) Coronary Stent CABGx4 H/O carotid endarterectomy (Acute) Pacemaker Replacement of aortic valve Social History Smoking/Tobacco Use Status: Never Alcohol Intake: former Drug use: Never Substance use type: does not use Details: Pt reports no alcohol since his heart attack 1995 Household members: none Housing: other Details: [facility] Number of Children: 2 current occupation: Lives at [facility] [employer]. Disabled since . Seatbelt use: always Do you feel safe at home: Yes Do you feel safe in your relationship?: Yes Additional Social history: lives alone, area on aging comes in to assiste pt. Reports safety issue regarding leg giving out. Exam Const General: cooperative, no acute distress and ill appearing chronically Orientation: alert, awake and oriented x3 HENMT Head: normal to inspection Face and sinus: normal facial exam Eyes General: appearance normal, both eyes and all related structures Pupils: PERRL EOM: EOM intact bilaterally Neck Neck: normal visual inspection and No submandibular swelling Lymphatic: no lymphadenopathy noted Chest Chest: normal inspection of the chest and no tenderness Resp Effort & Inspection: normal respiratory effort and able to speak in complete sentences Auscultation: clear to auscultation bilaterally Cardio Rate: regular rate Rhythm: regular rhythm GI Inspection: normal to inspection and obesity Palpation: soft, not firm, not rigid and nontender Auscultation: normal bowel sounds Skin General skin exam: no rashes or lesions noted Neuro General: patient alert, patient awake and patient oriented x3 Cranial Nerves: PERRL and other (Left facial droop. Tongue deviation to left.) Cognition: normal cognition Speech: abnormal speech slurred Motor: no pronator drift and other (4/5 muscle strength left upper extremity. 3/5 muscle strength b/l LE) Sensory Exam: no sensory deficits noted Extrem General: normal to inspection, full ROM, capillary refill normal, no calf tenderness bilaterally and no edema Psych Appearance: grossly normal Mental Status: mental status grossly normal Speech and Movement: speech and movement normal Affect: normal affect Course Vital Signs Vital signs: Vital Signs Respiratory Rate 17 09/03/19 08:10 Temperature 97.5 F L 09/03/19 08:11 Temperature Source Temporal Artery Scan 09/03/19 08:11 Pulse 82 09/03/19 08:13 Pulse 84 09/03/19 08:13 Respiratory Rate 19 09/03/19 08:13 Blood Pressure 173/87 H 09/03/19 08:13 Blood Pressure Mean 109 09/03/19 08:13 Blood Pressure Position Supine 09/03/19 08:11 Pulse Oximetry 94 L 09/03/19 08:13 Oxygen Delivery Method Room Air 09/03/19 08:11 Oxygen Flow Rate 0 09/03/19 08:11 Pain Level 0 09/03/19 08:11
[2019-09-03 08:40] LABS: Abs Immature Grans 0.02 k/cumm (0.0-0.09); Absolute Basophil Count 0.02 k/cumm (0.0-0.2); Absolute Eosinophil Count 0.17 k/cumm (0.0-0.7); Absolute Lymphocyte Count 1.67 k/cumm (1.2-3.4); Absolute Monocyte Count 0.51 k/cumm (0.11-0.7); Absolute Neutrophil Count 4.32 k/cumm (1.2-6.7); Basophils % 0.3; Eosinophils % 2.5; HCT 37.6 % (40.0-50.0); HGB 12.6 g/dL (13.5-17.5); Immature Grans % 0.3 %; Lymphocytes % 24.9; Mean Corp. HGB Concentration 33.5 g/dL (32.0-36.0); Mean Corpuscular Hemoglobin 29.7 pg (27.0-33.0); Mean Corpuscular Volume 88.7 fL (80-95); Mean Platelet Volume 9.9 fL (8.0-11.0); Monocytes % 7.6; Neutrophils % 64.4; Platelet Count 268 x1000/uL (130-400); RBC 4.24 m/cumm (4.50-6.00); RBC Distribution Width 14.7 % (11.8-14.1); White Blood Cell Count 6.71 k/cumm (4.4-10.8)
[2019-09-03 08:56] LABS: ALT 23 U/L (16-63); AST 29 U/L (15-37); Albumin 2.8 g/dL (3.4-5.0); Alkaline Phosphatase 96 U/L (46-116); Anion Gap 6.6 mmol/L (3-11); BUN 15 mg/dL (7-18); Bilirubin, Total 1.6 mg/dL (0.2-1.0); CO2 31.4 mmol/L (21.0-32.0); CREATININE 1.23 mg/dL (0.70-1.30); Calcium 8.8 mg/dL (8.5-10.1); Chloride 100 mmol/L (98-107); Estimated GFR 58.69 (mL/min/1.73m2); Glucose 282 mg/dL (74-106); Magnesium 1.3 mg/dL (1.8-2.4); Potassium 3.9 mmol/L (3.5-5.1); Sodium 138 mmol/L (136-145); Total Protein 6.9 g/dL (6.4-8.2); Troponin I < 0.05 ng/mL (<0.06)
[2019-09-03 08:57] LABS: INR 1.1 (0.9-1.1); PTT Activated 25.3 sec (21.0-31.4); Prothrombin Time 10.8 sec (9.3-11.0)
[2019-09-03 09:32] LABS: TSH (W/Ref FT4) 5.32 uIU/mL (0.36-3.74)
--- NOTE | 2019-09-03 09:47 | DI.CT_ITS ---
EXAM: CT BRAIN NECK CTA CLINICAL HISTORY: L facial droop/L leg weakness, r/o acute cva TECHNIQUE: Axial CT angiography was performed with multi-slice acquisition and multi-planar and/or 3 D reconstructions. COMPARISON: CT CT ABDOMEN PELVIS W from 12/28/2018 CR XR CHEST 1V IN DI DEPT from 09/03/2019 FINDINGS: CT angiography of the cervicocranial region was performed with intravenous infusion 85 cc of 350. No te is made of bilateral pleural effusions and mild diffuse pulmonary edema. There is an aortic/root prosthesis. There is a transvenous cardiac pacemaker. The findings are suggestive of acute CHF. No gross lesion of the aortic arch identified. No pulmonary embolus surveyed region. No abnormality of the common or internal carotid arteries to suggest a hemodynamically significant stenosis. There is a miniscule right vertebral artery and unremarkable appearing left vertebral artery. Intracranially, there is calcification of cavernous internal carotid artery bilaterally without evide nce of hemodynamically significant stenosis. Calcification of left vertebral artery also noted witho ut evidence of a stenosis in excess of 50 percent. Unremarkable appearance of the basilar artery. M iniscule right vertebral artery. The anterior middle and posterior cerebral arteries show no evidence of occlusion, stenosis or aneury sm. No significant abnormality of major branches identified although there may be a relative paucity of sylvian branches on right as compared to the left. Tracheolaryngeal structures appear intact. No cervical mass or adenopathy. No orbital process. Delayed images of the brain were obtained and show no intracranial mass lesion or enhancing lesion. IMPRESSION: No evidence of intracranial mass lesion or enhancing lesion. Presumed old right temporo-occipital infarct as noted on today's noncontrast CT. No hemodynamically significant vascular lesion identified. Calcified atheromatous plaque noted in ca vernous portions of internal carotid arteries bilaterally and in the left vertebral artery.
[2019-09-03] MEDS: Omnipaque 350 MG/ML 100 ML BTL IJ (09:52)
[2019-09-03] MEDS: MAGNESIUM SULFATE 2 GM/50 ML BAG IVPB ×2 (10:12→17:12)
[2019-09-03 10:31] LABS: Bilirubin Negative (Negative); Blood Small (Negative); Clarity Clear (Clear); Glucose 500 mg/dL (Negative); Ketones Trace mg/dL (Negative); Leukocyte Esterase Negative (Negative); Nitrite Negative (Negative); Urobilinogen 0.2 EU/dL (Up TO 0.2)
[2019-09-03 10:43] LABS: Bacteria Negative HPF (Negative); C & S Indicated? No; Casts 0-2 Coarse Granular LPF (Negative); Crystals Negative HPF (Negative); Epithelial Cells Rare HPF (Negative); Mucus Negative (Negative); WBC 0-2 HPF (0-5)
[2019-09-03 10:45] LABS: Creatine Kinase 247 U/L (39-308)
[2019-09-03] MEDS: Lidocaine 2% Jelly 6 ML SYR (11:34)
[2019-09-03] MEDS: Aspirin 325 MG TAB PO (15:00)
[2019-09-03] MEDS: Clopidogrel 300 MG TAB PO (15:00)
[2019-09-03 15:48] LABS: Troponin I < 0.05 ng/mL (<0.06)
[2019-09-03] MEDS: Heparin 5,000 UNITS/ML VIAL 5000 UNITS SC (17:12)
--- NOTE | 2019-09-03 17:15 | HPE_ITS ---
Date of service: 09/03/19 Time of Service: 16:50 Assessment and Plan Assessment and plan (1) Acute CVA (cerebrovascular accident): Status: Acute Assessment and plan: Unfortunately we will not be able to perform an MRI at our facility due to pacemaker in situ. He was initiated on aspirin in addition to plavix. Obtain echo. Consult neurology, PT/OT, speech. Permissive hypertension overnight. Neurochecks (2) Dysarthria: Status: Acute Assessment and plan: Due to above. Consult speech. For now, provide a modified diet as I suspect the patient may also have dysphagia. (3) H/O aortic valve replacement: Status: Acute Assessment and plan: Obtain echo (4) Hypomagnesemia: Status: Acute Assessment and plan: Replete (5) Type 2 diabetes mellitus with complication, with long-term current use of insulin: Status: Acute Assessment and plan: Continue basal bolus insulin with SSI (6) IVETTE (obstructive sleep apnea): Status: Acute Assessment and plan: Continue home CPAP (7) Hypertension: Status: Chronic Assessment and plan: Permissive hypertension tonight (8) Ambulatory dysfunction: Status: Acute Assessment and plan: consult PT/OT. (9) DVT prophylaxis: Status: Acute Assessment and plan: Heparin SC (10) Discharge planning issues: Status: Acute Assessment and plan: DNI per advanced directive he showed me Will require SNF placement History of Present Illness History of Present Illness Chief Complaint: L-sided weakness since yesterday. Narrative: Mr Hinkle is a 69 year old male with PMHx of CAD s/p CABG in 1995, s/p PCI to RCA/pOM2 in 2005), bioprosthetic aortic valve, , SSS s/p pacer, IDDM2, HTN, hyperlipidemia, COPD, not on oxygen, PAD, as well as IVETTE, who first presented to [facility] ED yesterday complaining of generalized weakness and difficulty walking. He was not felt to have any focal neurological symptoms at that time, and his weakness was felt to be progressive over two weeks. Dispo sition to SNF was considered, but patient adamantly refused this yesterday. This morning, he woke up with L-sided numbness, tingling, and weakness (LUE/LLE) as well as slurred speech and left-sided facial droop. He fell at home (both yesterday and today) and activated his life-alert button, calling the firefighters next door, who brought him to ED. The patient states that his symptoms today are the same as yesterday, but worse. However, there is a report that he was normal at 9:30 last night. In the ED, he was confirmed to have these neurological deficits. He was hypertensive with BP of up to 191/100. CT head, CTA head/neck did not reveal any acute findings. Case was reviewed with [facility] neurology, who recommended that patient be given asa and plavix. He cannot have an MRI here due to pacemaker in-situ. The patient agrees to SNF placement at this time. Review of Systems All systems reviewed & are unremarkable except as noted in HPI and below PFSH Medical History (Updated 09/03/19 @ 18:55 by Risa Fleming MD) Anxiety with depression (Acute) Aortic valve replaced Back pain (Acute) CAD (coronary artery disease) COPD (chronic obstructive pulmonary disease) CVA (cerebral vascular accident) (Chronic) Diabetic neuropathy DM (diabetes mellitus) GERD (gastroesophageal reflux disease) (Chronic) H/O: HTN (hypertension) (Acute) Hematuria (Acute) History of bloody stools (Acute) HTN (hypertension) Hx of fall (Acute) Hyperlipidemia (Acute) Hypothyroidism Hypothyroidism (acquired) (Acute) Insomnia (Acute) Memory impairment (Acute) Obesity (Chronic) IVETTE (obstructive sleep apnea) IVETTE on CPAP (Chronic) Pacemaker Passive suicidal ideations (Acute) Perforated tympanic membrane (Acute) Polypharmacy (Acute) Proteinuria (Acute) Rash, skin (Acute) Renal insufficiency Sick sinus syndrome (Acute) Sinus node dysfunction (Acute) Tinea cruris (Acute) Surgical History (Updated 09/03/19 @ 18:31 by Risa Fleming MD) Coronary Artery Bypass Gaft (CABG) Coronary Stent CABGx4 H/O carotid endarterectomy (Acute) Pacemaker Replacement of aortic valve Social History Smoking/Tobacco Use Status: Never Alcohol Intake: former Drug use: Never Substance use type: does not use Details: Pt reports no alcohol since his heart attack 1995 Household members: none Housing: other Details: [facility] Number of Children: 2 current occupation: Lives at [employer] [facility]. Disabled since . Seatbelt use: always Do you feel safe at home: Yes Do you feel safe in your relationship?: Yes Additional Social history: lives alone, area on aging comes in to assiste pt. Reports safety issue regarding leg giving out. Meds Home Medications and Allergies Home Medications Medication Instructions Recorded Confirmed Type atorvastatin [Lipitor] 80 mg PO HS 01/05/14 09/03/19 History ezetimibe [Zetia] 10 mg PO QAM 01/05/14 09/03/19 History furosemide 40 mg PO DAILY 01/05/14 09/03/19 History isosorbide mononitrate 120 mg PO QAM 01/05/14 09/03/19 History multivitamin [Daily Multi-Vitamin] 1 tab PO QAM 01/05/14 09/03/19 History ropinirole 2 mg PO HS 01/05/14 09/03/19 History metoprolol succinate 100 mg PO DAILY 04/02/17 09/03/19 History ProAir RespiClick 90 mcg INHALATION Q4H PRN PRN 07/10/17 09/03/19 History insulin aspart U-100 [Novolog See Rx Instructions .ROUTE .COMPLEX 07/20/17 09/03/19 History Flexpen U-100 Insulin] mirtazapine 15 mg tablet 15 mg PO DAILY 07/23/18 09/03/19 History gabapentin 400 mg PO HS 10/04/18 09/03/19 History Slow-Mag 71.5 mg PO DAILY 10/18/18 09/03/19 History chlorhexidine gluconate 0.12 % 15 ml MM BID 04/01/19 09/03/19 History mouthwash clopidogrel 75 mg tablet 75 mg PO DAILY 04/01/19 09/03/19 History clotrimazole 1 % topical cream 1 applic TP BID 04/01/19 09/03/19 History hydrocortisone 0.5 % topical cream 1 applic TP BID PRN 04/01/19 09/03/19 History insulin detemir U-100 100 unit/mL 54 unit SC .am and pm ml 04/01/19 09/03/19 History (3 mL) subcutaneous pen ketorolac 0.4 % eye drops 1 drp OP QID 04/01/19 09/03/19 History losartan 100 mg tablet 100 mg PO DAILY 04/01/19 09/03/19 History metformin 500 mg tablet 500 mg PO BID 04/01/19 09/03/19 History mometasone 50 mcg/actuation nasal 2 spray ROSE MARY DAILY 04/01/19 09/03/19 History spray nebulizers #1 each 04/01/19 08/27/19 History nystatin 100,000 unit/gram topical 1 applic TP TID 04/01/19 09/03/19 History powder oxygen-air delivery systems #1 04/01/19 08/27/19 History fluoxetine 20 mg PO DAILY 05/29/19 09/03/19 History levothyroxine 175 mcg PO DAILY 05/29/19 09/03/19 History nitroglycerin [Nitrostat] 0.4 mg SUBLINGUAL PRN PRN 05/29/19 09/03/19 History polyethylene glycol 3350 [Miralax] 17 g PO DAILY 05/29/19 09/03/19 History tamsulosin 0.4 mg PO DAILY 07/18/19 09/03/19 History budesonide-formoterol [Symbicort] 2 puff INHALATION BID 09/02/19 09/03/19 History cholecalciferol (vitamin D3) 1,000 unit PO DAILY 09/02/19 09/03/19 History [Vitamin D3] fluticasone propionate [Flonase 2 spray INTRANASAL DAILY 09/02/19 09/03/19 History Allergy Relief] omeprazole 40 mg PO DAILY 09/03/19 09/03/19 History Allergies Allergy/AdvReac Type Severity Reaction Status Date / Time No Known Allergies Allergy Unverified 09/02/19 09:44 Exam Narrative Exam Narrative: General: Very pleasant obese male with slurred speech and an obvious L-sided facial droop, able to provide his history, though he is difficult to understand due to dysarthria Neurological: A&Ox3, slurred speech, but appropriate word choice, EOMI, PERRLA, tongue appears to be slightly deviated to the R, L facial droop, Otherwise CN II-XII intact, Decreased sensation LUE/LLE. LUE stregth 4/5, LLE 3/5. RUE/RLE 5/5. I am unable to get DTRs. Plantar response equivocal B. No pronator drift. Unclear if patient has dysmetria with LUE or if his weakness is preventing him from being able to reach his nose. Psychiatric: Appropriate speech pattern/content Skin: mild chronic venous stasis dermatitis HEENT: EOMI, MMM, clear oropharynx, tongue deviated to R, L facial droop, no submandibular or cervical lymphadenopathy, mild goiter, no JVD Cardiovascular: RRR, +quiet MARCY Lungs: CTAB Gastrointestinal: soft, nontender, nondistended Genitourinary: has a sotelo Extremities: no lesions on B feet, +1 pedal pules B Results Imaging Additional studies: EKG: NSR, HR 84, RBBB/bi-fascicular block, unchanged from prior CT head: No evidence of acute intracranial process. Additional evaluation with MRI may be considered if clinically appropriate considering the patient's acute symptomatology.. CTA head/neck: No evidence of intracranial mass lesion or enhancing lesion. Presumed old right temporo-occipital infarct as noted on today's noncontrast CT. No hemodynamically significant vascular lesion identified. Calcified atheromatous plaque noted in cavernous portions of internal carotid arteries bilaterally and in the left vertebral artery. CXR: Findings consistent with mild CHF. Today's CT examination showed bilateral pleural effusions which are not appreciated on the plain film. Labs Result diagrams: 09/03/19 08:12 09/03/19 08:12 Labs: Laboratory Results - last 24 hr 09/03/19 09/03/19 09/03/19 08:12 08:12 08:12 WBC 6.71 RBC 4.24 L Hgb 12.6 L Hct 37.6 L MCV 88.7 MCH 29.7 MCHC 33.5 RDW 14.7 H Plt Count 268 MPV 9.9 Immature Gran % 0.3 Neutrophils % 64.4 Lymphocytes % 24.9 Monocytes % 7.6 Eosinophils % 2.5 Basophils % 0.3 Absolute Neutrophils 4.32 Absolute Lymphocytes 1.67 Absolute Monocytes 0.51 Absolute Eosinophils 0.17 Absolute Basophils 0.02 PT 10.8 INR 1.1 APTT 25.3 Sodium 138 Potassium 3.9 Chloride 100 Carbon Dioxide 31.4 Anion Gap 6.6 BUN 15 Creatinine 1.23 Estimated GFR/1.73 m2 58.69 Glucose 282 H Calcium 8.8 Magnesium 1.3 L Total Bilirubin 1.6 H AST 29 ALT 23 Alkaline Phosphatase 96 Creatine Kinase Troponin I < 0.05 Total Protein 6.9 Albumin 2.8 L TSH Urine Color Urine Clarity Urine pH Ur Specific [place] Urine Protein Urine Ketones Urine Blood Urine Nitrite Urine Bilirubin Urine Urobilinogen Ur Leukocyte Esterase Urine RBC Urine WBC Ur Epithelial Cells Urine Crystals Urine Bacteria Urine Casts Urine Mucus Ur Culture Indicated? Urine Glucose 09/03/19 09/03/19 09/03/19 08:12 08:12 10:18 WBC RBC Hgb Hct MCV MCH MCHC RDW Plt Count MPV Immature Gran % Neutrophils % Lymphocytes % Monocytes % Eosinophils % Basophils % Absolute Neutrophils Absolute Lymphocytes Absolute Monocytes Absolute Eosinophils Absolute Basophils PT INR APTT Sodium Potassium Chloride Carbon Dioxide Anion Gap BUN Creatinine Estimated GFR/1.73 m2 Glucose Calcium Magnesium Total Bilirubin AST ALT Alkaline Phosphatase Creatine Kinase 247 Troponin I Total Protein Albumin TSH 5.32 H Urine Color Yellow Urine Clarity Clear Urine pH 7.0 Ur Specific [place] 1.020 Urine Protein >=300 H Urine Ketones Trace H Urine Blood Small H Urine Nitrite Negative Urine Bilirubin Negative Urine Urobilinogen 0.2 Ur Leukocyte Esterase Negative Urine RBC 5-10 H Urine WBC 0-2 Ur Epithelial Cells Rare Urine Crystals Negative Urine Bacteria Negative Urine Casts 0-2 coarse granular Urine Mucus Negative Ur Culture Indicated? No Urine Glucose 500 H 09/03/19 15:30 WBC RBC Hgb Hct MCV MCH MCHC RDW Plt Count MPV Immature Gran % Neutrophils % Lymphocytes % Monocytes % Eosinophils % Basophils % Absolute Neutrophils Absolute Lymphocytes Absolute Monocytes Absolute Eosinophils Absolute Basophils PT INR APTT Sodium Potassium Chloride Carbon Dioxide Anion Gap BUN Creatinine Estimated GFR/1.73 m2 Glucose Calcium Magnesium Total Bilirubin AST ALT Alkaline Phosphatase Creatine Kinase Troponin I < 0.05 Total Protein Albumin TSH Urine Color Urine Clarity Urine pH Ur Specific [place] Urine Protein Urine Ketones Urine Blood Urine Nitrite Urine Bilirubin Urine Urobilinogen Ur Leukocyte Esterase Urine RBC Urine WBC Ur Epithelial Cells Urine Crystals Urine Bacteria Urine Casts Urine Mucus Ur Culture Indicated? Urine Glucose Last Vital Signs Temp 37.1 C 09/03/19 16:45 Pulse 92 H 09/03/19 16:45 Resp 19 09/03/19 16:45 BP 181/119 H 09/03/19 16:45 Pulse Ox 96 09/03/19 16:45 COVID-19 Screening In the past 14 days, have you traveled outside of [place]?: NO Had IN PERSON contact w/suspected or confirmed C-19 person: No
[2019-09-03] MEDS: Insulin Aspart 300 UNITS/3 ML PEN SC ×2 (17:25→21:35)
[2019-09-03 19:24] LABS: NT-proBNP 5983 pg/mL (<300)
[2019-09-03] MEDS: Budesonide/Formoterol 80/4.5 6.9 GM 60 PUFF INH IH (21:26)
[2019-09-03] MEDS: Gabapentin 400 MG CAP PO (21:27)
[2019-09-03] MEDS: rOPINIRole 1 MG TAB 2 MG PO (21:27)
[2019-09-03] MEDS: Atorvastatin 40 MG TAB 80 MG PO (21:27)
--- NOTE | 2019-09-04 | DI.US_ITS ---
APPROVED REPORT EXAM: Comprehensive 2D, Doppler, and color-flow Echocardiogram Patient Location: In-Patient Room/Bed: [address] Worker: Rebecca Swenson RDCS (AE) Indications: Acute CVA Other Information Study Quality: Technically Difficult. Technically limited study due to body habitus. Conclusion Left Ventricle : The left ventricle is normal size. Left ventricular systolic function is mild to mod erately decreased. There is normal left ventricular wall thickness. Regional wall motion abnormalitie s are noted. LVEF is 38%. Right Ventricle : Right ventricle is not well visualized. Right ventricular systolic function could n ot be assessed. The RVSP is 46.8 mmHg. Atria : The left atrium size is normal. The right atrium size is normal. Aortic Valve : Bioprosthetic aortic valve is present. No aortic regurgitation is present. Mitral Valve : Mild mitral annular calcification. The mitral valve is mildly thickened. No evidence o f mitral valve stenosis. Trace mitral regurgitation. Great Vessels : The IVC collapses <50% with inspiration. Echocardiogram at [facility] from 07/19/2019: There is no significant change. Wall motion Left Ventricle The left ventricle is normal size. Left ventricular systolic function is mild to moderately decreased . There is normal left ventricular wall thickness. Regional wall motion abnormalities are noted. The left ventricular diastolic function is abnormal. There is no ventricular septal defect visualized. LV EF is 38%. Right Ventricle Right ventricle is not well visualized. Right ventricular systolic function could not be assessed. Th e RVSP is 46.8 mmHg. Pacemaker lead is present in the right ventricle. Atria The left atrium size is normal. The right atrium size is normal. The interatrial septum is intact wit h no evidence for an atrial septal defect. Aortic Valve No hemodynamically significant valvular aortic stenosis. No aortic regurgitation is present. Bioprost hetic aortic valve is present. Mitral Valve Mild mitral annular calcification. The mitral valve is mildly thickened. No evidence of mitral valve stenosis. Trace mitral regurgitation. Tricuspid Valve The tricuspid valve is normal in structure. There is no tricuspid valve stenosis. Mild tricuspid regu rgitation. Pulmonic Valve The pulmonary valve is normal in structure. There is no pulmonic valvular stenosis. There is no pulmo argelia valvular regurgitation. Great Vessels The aortic root is normal in size. Ascending aorta is normal in caliber. The IVC collapses <50% with inspiration. Pericardium There is no pericardial effusion. 2D Dimensions IVSD d PLAX 0.96 cm M: 0.6-1.2 LV Vol A2C d MOD 120.9 mL LVPW d PLAX 0.90 cm M: 0.6 - 1.2 LV Vol A4C d MOD 109.1 mL LVID d PLAX 5.31 cm M: 4.2 - 5.8 LA vol/ BSA A2C s A-L 16.2 mL/m2 LVDs 4.35 cm M: 2.5 - 4.0 LA vol/ BSA A4C s A-L 20.4 mL/m2 Ao Root d 3.14 cm M: 3.1 - 3.7 LA Vol/ BSA Biplane s A-L 19.4 mL/m2 RA Area A4C 14.69 cm2 LA Area A4C s MOD 17.01 cm2 RA Vol/ BSA A4C s A-L 17.2 mL/m2 LA Area A2C s MOD 14.19 cm2 Ao Asc Diam d 3.23 cm M: 2.6 - 3.4 LV EF A4C MOD 37.5 % LV EF Teichholz 36.9 % LV EF A2C MOD 36.7 % LVEF (Benítez's) 36.98 % M: 52 - 72 LV EF Biplane MOD 37.0 % LV Volume 83.05 mL M: 62 - 150 SV 42.53 mL LV Volume Index 36.91 mL/m2 M: 34 - 74 SV Index 18.89 mL/m2 LV Vol Biplane MOD 115.0 mL FS 17.85 % M-Mode TAPSE 1.88 cm (M/F) >1.7 LV Diastology MV E' medial 0.059 (>0.07 m/s) E/A Ratio 1.7 LV E/e MED 17.15 (<14) MV E Vmax 1.01 (0.4-1.3 m/s) MV E' lateral 0.068 (>0.1 m/s) MV A Vmax 0.60 (0.4-1.3 m/s) LV E/e LAT 14.70 (<14) MV E/A Ratio 1.56 MV E/E' medial 17.17 MV E/E' lateral 14.71 Aortic Valve LVOT Area 3.89 cm2 AoV Area Vmax 2.02 cm2 LVOT Vmax 1.15 m/s AoV Area/ BSA (Vmax) 0.90 cm2/m2 LVOT Mean Dioni. 0.88 m/s BRINA Mean Dioni. 2.09 cm2 LVOT Peak Grad 5.3 mmHg BRINA Mean Dioni. Index 0.93 cm2/m2 LVOT Mean Grad 3.4 mmHg LVOT VTI 0.228 m LVOT Diam s 2.20 cm AoV Vmax 2.22 m/s Velocity Ratio 0.51 AoV Mean Dioni. 1.63 m/s AoV Peak Grad 19.8 mmHg LVOT SV 88.88 mL AoV Mean Grad 11.6 mmHg AoV VTI 0.465 m AoV Area VTI 1.91 cm2 AoV Area/ BSA (VTI) 0.85 cm/m2 Mitral Valve MV DT 165 (160-240 msec) MV PHT 48 msec MV Area PHT 4.60 cm2 MV VTI 0.259 m MV Area VTI 3.43 (4.0-6.0 cm2) Pulmonary Valve PV Vmax 1.10 (0.5-1.5 m/s) RVOT Peak Gr. 3.15 mmHg PV Peak Grad 4.8 mmHg RVOT Mean Gr. 1.90 mmHg PV Mean Grad 3.2 mmHg RVOT VTI 0.164 m PV VTI 0.216 m RVOT Vmax 0.89 m/s Tricuspid Valve TR Peak Grad 38.7 mmHg TR Vmax 3.11 m/s RA Pressure 8.00 mmHg RVSP (TR) 46.8 mmHg
[2019-09-04] MEDS: Heparin 5,000 UNITS/ML VIAL 5000 UNITS SC ×3 (00:20→16:25)
[2019-09-04 03:30] VITALS: BP 158/99; PULSE 80; RESP 19; TEMP 36.7; O2SAT 97
[2019-09-04] MEDS: Levothyroxine 25 MCG TAB (05:59)
[2019-09-04] MEDS: Levothyroxine 150 MCG TAB (05:59)
[2019-09-04 06:57] LABS: Abs Immature Grans 0.01 k/cumm (0.0-0.09); Absolute Basophil Count 0.05 k/cumm (0.0-0.2); Absolute Eosinophil Count 0.28 k/cumm (0.0-0.7); Absolute Lymphocyte Count 1.83 k/cumm (1.2-3.4); Absolute Monocyte Count 0.53 k/cumm (0.11-0.7); Absolute Neutrophil Count 5.67 k/cumm (1.2-6.7); Basophils % 0.6; Eosinophils % 3.3; HCT 37.4 % (40.0-50.0); HGB 12.4 g/dL (13.5-17.5); Immature Grans % 0.1 %; Lymphocytes % 21.9; Mean Corp. HGB Concentration 33.2 g/dL (32.0-36.0); Mean Corpuscular Volume 87.6 fL (80-95); Mean Platelet Volume 9.8 fL (8.0-11.0); Monocytes % 6.3; Neutrophils % 67.8; Platelet Count 295 x1000/uL (130-400); RBC 4.27 m/cumm (4.50-6.00); RBC Distribution Width 14.6 % (11.8-14.1); White Blood Cell Count 8.37 k/cumm (4.4-10.8)
[2019-09-04 07:35] LABS: Anion Gap 6.3 mmol/L (3-11); BUN 10 mg/dL (7-18); CO2 30.7 mmol/L (21.0-32.0); CREATININE 1.01 mg/dL (0.70-1.30); Calcium 8.9 mg/dL (8.5-10.1); Calculated LDL 81 mg/dL (<100); Chloride 104 mmol/L (98-107); Cholesterol 155 mg/dL (<200); Glucose 98 mg/dL (74-106); HDL Cholesterol 48 mg/dL (40-60); Magnesium 1.9 mg/dL (1.8-2.4); Potassium 3.2 mmol/L (3.5-5.1); Sodium 141 mmol/L (136-145); Triglyceride 131 mg/dL (<150); Troponin I < 0.05 ng/mL (<0.06); Vitamin B12 314 pg/mL (193-986)
[2019-09-04] MEDS: Budesonide/Formoterol 80/4.5 6.9 GM 60 PUFF INH IH ×2 (08:00→19:39)
[2019-09-04 08:14] VITALS: BP 178/109; PULSE 80; RESP 16; TEMP 35.9; O2SAT 98
[2019-09-04 08:26] LABS: COVID-19 RT-PCR UVMMC Result Negative (Negative)
--- NOTE | 2019-09-04 08:35 | PT.INIE ---
Date of service: 09/04/19 Time of Service: 08:35 PT Notes Visit Reasons: ACUTE CVA Physical Therapy Inpatient Initial Evaluation Date: 09/04/2019 Referring Doctor: Risa Fleming MD PT Orders: PT CONSULT: Limited ability Precautions: Fall. Standard. Activity as tolerated. Patient Profile/Admitting Diagnosis: Sher is a 69-year-old male who presented to the ED on 09/03/2019 with chief complaints of left-sided facial droop, left arm and left leg weakness, and slurred speech. Patient is diagnosed with acute sudden, dysarthria, hypomagnesemia, type 2 diabetes mellitus, IVETTE, and ambulatory dysfunction with referral to skilled for therapy services in order to address resulting functional mobility impairments. Sher was previously evaluated on 09/02/2019 at the ED for safety assessment for D/C to home with recommendations given for use of wheelchair to use for the ramp to get into the apartment building and for HH PT to follow up right away to assess for home safety. Patient was adamant about intending to go home during the evaluation so aforementioned recommendations were stressed in the ED initial evaluation. (Please refer to ED eval dated 09/02/2019) PMHX: Medical History (Updated 09/03/19 @ 18:55 by Risa Fleming MD) Anxiety with depression (Acute) Aortic valve replaced Back pain (Acute) CAD (coronary artery disease) COPD (chronic obstructive pulmonary disease) CVA (cerebral vascular accident) (Chronic) Diabetic neuropathy DM (diabetes mellitus) GERD (gastroesophageal reflux disease) (Chronic) H/O: HTN (hypertension) (Acute) Hematuria (Acute) History of bloody stools (Acute) HTN (hypertension) Hx of fall (Acute) Hyperlipidemia (Acute) Hypothyroidism Hypothyroidism (acquired) (Acute) Insomnia (Acute) Memory impairment (Acute) Obesity (Chronic) IVETTE (obstructive sleep apnea) IVTETE on CPAP (Chronic) Pacemaker Passive suicidal ideations (Acute) Perforated tympanic membrane (Acute) Polypharmacy (Acute) Proteinuria (Acute) Rash, skin (Acute) Renal insufficiency Sick sinus syndrome (Acute) Sinus node dysfunction (Acute) Tinea cruris (Acute) Surgical History (Updated 09/03/19 @ 18:31 by Risa Fleming MD) Coronary Artery Bypass Graft (CABG) Coronary Stent CABGx4 H/O carotid endarterectomy (Acute) Pacemaker Replacement of aortic valve Social History/Home Situation: Patient lives on the second floor of the [facility]. He states that he has been limited to only doing indoor ambulation using his 4-wheeled walker and has a motorized wheelchair that he uses for outdoors but currently has battery issues. Equipment Owned/DME: Motorized wheelchair with battery issue, 4-wheeled walker Subjective: Sher states that his sister picked her up from the ED in the evening of 09/02/2019 and had a hard time helping him out of her car. He reports walking into the apartment building's ramp using a straight cane on one hand and holding onto the rail with the other with his sister providing needed help. They managed to get into apartment but he states it took a lot out of him. When he got up the bed the following morning, he slid again as the mattress he has has been all worn out and the bed does not have side rails. He was unable to get up and tried to crawl' to the recliner and maneuvered himself in an attempt to use recliner to help him to the sitting and standing position. He failed and finally asked his sister for help who then called 911 immediately. EMS finally brought patient back to the ED yesterday. Objective: General Observation: Appears tired. Lips pale. Obese. L half of face drooped. IV in L UE. TEDS to B legs. Red-colored urine in urinary bag, sotelo catheter in place. Telemetry in place. Mental Status: Alert and oriented for Pain: 3/10 in the low back area ROM: Right Upper Extremity: Shoulder Flexion WFL. Shoulder abduction WFL. Elbow flexion WFL. Wrist flexion WFL. Opening and closing of hand WFL. Left Upper Extremity: Shoulder Flexion allows up to 120 degrees. Shoulder abduction allows up to 100 degrees. Elbow flexion WFL. Wrist flexion WFL. Opening and closing of hand WFL. Right Lower Extremity: Hip flexion WFL. Hip abduction WFL. Knee flexion WFL. Ankle dorsiflexion WFL. Ankle plantarflexion WFL. Left Lower Extremity: Hip flexion does not allow any flexion beyond 90 while seated at edge of bed. Hip abduction allows to 10 degrees. Knee flexion allows up to 90 degrees. Ankle dorsiflexion allows 10 degrees of dorsiflexion beyond neutral. Ankle plantarflexion WFL. Strength: Right Upper Extremity: Shoulder flexors 5/5. Shoulder abductors 5/5. Elbow flexors 5/5. Elbow extensors 5/5. Director Of Advertising [employer] strong. Left Upper Extremity: Shoulder flexors 3-/5. Shoulder abductors 3-/5. Elbow flexors 4-/5. Elbow extensors 4-/5. Director Of Advertising Sales weak but functional. Right Lower Extremity: Hip flexors 5/5. Hip abductors 5/5. Knee flexors 5/5. Knee extensors 5/5. Ankle dorsiflexors 5/5. Ankle plantarflexors 5/5. Left Lower Extremity:Hip flexors 2-/5. Hip abductors 2-/5. Knee flexors 3--/5. Knee extensors 3-/5. Ankle dorsiflexors 3-/5. Ankle plantarflexors 4-/5. Sensation: Intact as to pain and pressure on bilateral lower extremities. Bed Mobility/Transfers: Supine to sit moderate assist Sit to supine moderate assist Sit to stand contact-guard assist, cues needed for hand placement, requires use of a walker Stand to sit contact-guard assist, cues needed for hand placement, requires use of a walker Bed to chair contact-guard assist, cues needed for hand placement, requires use of a walker Chair to bed contact-guard assist, cues needed for hand placement, requires use of a walker Gait: Patient tolerated short distance ambulation of 15 feet x 2 with front wheeled walker with contact-guard assist and IV pole management provided. Vania creased. Dorsiflexion on the left decreased. No LOB seen. Patient reports being exhausted from a short walk and wanted to rest continue to sleep. Functional billboard mechanic on the left walker handle seen. Balance: Static Sitting: Normal Dynamic Sitting: Good Static Standing: Fair Dynamic Standing: Fair Special Tests: Mobility Limitations Standardized Measure [facility] AM-PAC 6 clicks Basic Mobility Inpatient Short Form: Raw Score: 6 CMS Score: 15% deficit Informed Consent/Education: Patient instructed in purpose of PT consult and plan of care. Assessment: Sher demonstrates left-sided hemiparesis on the left UE/LE compounding the pre-existing B UE/LE weakness that has started a couple of weeks ago, functional mobility decline requiring the use of front wheeled for all mobility performance, impairment in balance, unsteadiness of gait, and limited activity tolerance resulting from admitting diagnoses and past medical history. Sher is a 69-year-old male who presented to the ED on 09/03/2019 with chief complaints of left-sided facial droop, left arm and left leg weakness, and slurred speech. Patient is diagnosed with acute sudden, dysarthria, hypomagnesemia, type 2 diabetes mellitus, IVETTE, and ambulatory dysfunction with referral to skilled for therapy services in order to address resulting functional mobility impairments. Sher was previously evaluated on 09/02/2019 at the ED for safety assessment for D/C to home but because patient was adamant about intending to go home (he did not want to stay at hospital nor go somewhere else) during the evaluation so aforementioned recommendations were stressed in the ED initial evaluation with recommendations given for use of wheelchair for the ramp to get into the apartment building and for HH PT to follow up right away to assess for home safety. Patient presents with clinical signs and symptoms consistent with current/admitting diagnoses that have resulted to mobility limitations, gait instability, generalized weakness, and impairment of motor control as demonstrated by the following impairment level findings: 1. Decreased strength to left UE/LE major muscle groups with pre-existing weakness to right UE/LE 2. Impaired sitting/standing balance 3. Impaired activity tolerance 4. Limitation of joint range of motion in L UEs/LE joints Impairments are contributing to the following functional limitations: 1. Dependent bed mobility skills 2. dependent with transfers 3. Inability to safely ambulate without assistive device and physical assistance 4. Increase completion time for mobility ADL performance 5. Increased fall risk 6. Inability to negotiate steps alone safely Patient is assessed as a 49554 moderate complexity based on the following: History: 69-year-old male with impairment level findings, functional limitations, and past medical history as indicated above Examination: Demonstrable impairment in strength, balance, and mobility level with underlying impairments and functional limitations as documented above Presentation:Evolving Decision Makin moderate complexity Goals: Goals X1 week 1. Supine-Sit independent 2. Sit-Supine independent 3. Sit-Stand independent 4. Stand-Sit independent 5. Bed-Chair independent 6. Chair-Bed independent 7. Independent gait on level surface with use of least restrictive device for at least 300 feet without report of pain nor dyspnea 8. Independent stair negotiation while holding onto bilateral rails for at least 10 steps without report of pain nor dyspnea 9. Independent with home exercise program 10. Good static and dynamic standing balance/tolerance Plan of Care/Treatment Plan: 1-2x/day, 7 days/week x 1 week. Plan of care has been reviewed with the INFO SPECIALIST providing the service under Physical Therapy direction. Initiate Physical Therapy intervention for strengthening, bed mobility, transfers, gait, stairs, balance training, use of assistive device. PT Intervention: Session today consisted of initial physical therapy evaluation as well as education and training on safe ability ADL performance using the front-wheeled walker. DISCHARGE RECOMMENDATIONS: Patient will benefit from [facility] placement for continued skilled physical therapy services in order to progress mobility level, strength, and balance in preparation for a safe discharge to home. TREATMENT CODE/TIME: 06428 x 25 minutes, 73231 x43 minutes beginning at 8:35 AM. Thank you very much for this referral. Melissa Cavazos PT, DPT, CLT [facility] [place], [place]
[2019-09-04] MEDS: Tamsulosin 0.4 MG CAPCR PO (09:11)
[2019-09-04] MEDS: Isosorbide Mononitrate 60 MG TABCR 120 MG PO (09:11)
[2019-09-04] MEDS: Ezetimibe 10 MG TAB PO (09:11)
[2019-09-04] MEDS: Omeprazole 20 MG CAPCR 40 MG PO (09:11)
[2019-09-04] MEDS: Clopidogrel 75 MG TAB PO (09:11)
[2019-09-04] MEDS: Cholecalciferol (Vitamin D3) 1,000 UNIT TAB 1000 UNITS PO (09:12)
[2019-09-04] MEDS: Magnesium Chloride 64 MG TABCR PO (09:12)
[2019-09-04] MEDS: Metoprolol CR 100 MG TABCR PO (09:12)
[2019-09-04] MEDS: Multivitamin TAB 1 TAB PO (09:12)
[2019-09-04] MEDS: Aspirin E.C. 81 MG TABEC PO (09:12)
[2019-09-04] MEDS: FLUoxetine 20 MG CAP PO (09:12)
[2019-09-04] MEDS: Polyethylene Glycol 3350 17 GM PACKET PO (09:14)
[2019-09-04] MEDS: Losartan 50 MG TAB 100 MG PO (09:20)
--- NOTE | 2019-09-04 09:57 | OT.INIE ---
Occupational Therapy Notes Inpatient Occupational Therapy Evaluation Date: 09/04/19 Referring Doctor: Risa Fleming MD OT Orders: Non Urgent Precautions: Fall, Standard, DNI PATIENT PROFILE/ADMITTING DIAGNOSIS: Pt is a 69 year old male who presented to the ED on 09/03/19 with Slurred speech, Facial droop, Generalized weakness. He was admitted to [facility] with the following dx of acute CVA, dysarthria, h/o aortic valve replacement, type II DM, IVETTE, HTN. Past Medical History- Medical History (Updated 09/03/19 @ 18:55 by Risa Fleming MD) Anxiety with depression (Acute) Aortic valve replaced Back pain (Acute) CAD (coronary artery disease) COPD (chronic obstructive pulmonary disease) CVA (cerebral vascular accident) (Chronic) Diabetic neuropathy DM (diabetes mellitus) GERD (gastroesophageal reflux disease) (Chronic) H/O: HTN (hypertension) (Acute) Hematuria (Acute) History of bloody stools (Acute) HTN (hypertension) Hx of fall (Acute) Hyperlipidemia (Acute) Hypothyroidism Hypothyroidism (acquired) (Acute) Insomnia (Acute) Memory impairment (Acute) Obesity (Chronic) IVETTE (obstructive sleep apnea) IVETTE on CPAP (Chronic) Pacemaker Passive suicidal ideations (Acute) Perforated tympanic membrane (Acute) Polypharmacy (Acute) Proteinuria (Acute) Rash, skin (Acute) Renal insufficiency Sick sinus syndrome (Acute) Sinus node dysfunction (Acute) Tinea cruris (Acute) Surgical History (Updated 09/03/19 @ 18:31 by Risa Fleming MD) Coronary Artery Bypass Gaft (CABG) Coronary Stent CABGx4 H/O carotid endarterectomy (Acute) Pacemaker Replacement of aortic valve Social History/Home Situation: Pt was previously living at the [facility] on the 2nd floor with his cat. He reports that there is an elevator and that he typically utilizes the elevator when leaving. He has a FWW and 2 canes which he states that he uses for his functional mobility because he is wobbly. He states that he has a walk in shower with a seat and his living situation is handicap accessible. He does not drive at baseline and states that his PCP recommended that he no longer drive but states that the V sent him an active license so he says he has one if he needs to use it but hasnt. He does not require (A) at his baseline level of function and reports that he is (I). He has laundry in the building which he did himself and his son (A) him with grocery shopping when needed. Equipment owned/DME: shower seat, grab bars, FWW, 2-canes, handicap accessible apartment. SUBJECTIVE: Pt was sitting up in bed when OT arrived. He was agreeable to OT session with (L) arm weakness and facial droop present. Difficulty with speech but was able to answer questions appropriately. OBJECTIVE: General Observation: (L) facial droop, difficulty with speech/understanding, (L) arm weakness, hand/digits open and propped on pillow. Mental Status: A&Ox3 Pain: no c.o pain ROM: RUE AROM WFL L UE AROM shoulder flexion to 50*, elbow with minimal movement unless passively (A), wrist and digits WNL, PROM to shoulder flexion WNL STRENGTH: RUE 3+/5 throughout globally LUE 3-/5 throughout globally SENSATION: Intact (B) UE FUNCTIONAL MOBILITY/ADLS: BATHING Bathing UE Sitting in bed with (L) UE able to (I) wash face and forearms. (R) UE also able to perform. Bathing LE NT pt has minimal AROM of (B) LE during OT consult. DRESSING NT Dressing UE Functional ROM of (L) UE and pt will require mod (A) with don and doffing hospital gown due to lack of AROM of (L) UE Dressing LE Max (A) will be required for don and doffing (B) socks at this time. GROOMING NT pt has functional ROM to actively bring (B) UE to face. TOILETING Limon in place. BALANCE: Static sitting Good Dynamic Sitting Good Static Standing NT Dynamic Standing NT SPECIAL TESTS: Daily Activity Limitations Standardized Measure [facility] AM -PAC ?6 clicks? Daily Activity Inpatient Short Form: Raw score: 15 INFORMED CONSENT/EDUCATION: Pt instructed in purpose of OT Consult and plan of care. ASSESSMENT: Patient is a 69 -year-old male referred to occupational therapy services with diagnosis of acute CVA, dysarthria, h/o aortic valve replacement, Type II DM, IVETTE, HTN. Patient presents with clinical signs and symptoms consistent with dx, as demonstrated by the following impairment level findings: (L) facial droop, slurred speech, (L) side weakness, (L) side decreased ROM, (L) LE decreased ROM, increased risk for (L) side neglect, increased risk for secondary complication. Impairments are contributing to the following functional limitations: Impairments in ADL/IADL and leisure activities, hemiparesis of (L) UE, spasticity noted in (L) UE with AROM, impaired coordination, limited functional activity tolerance and endurance, impaired sensation in (L) UE/LE, dysarthria, cognitive impairment secondary to storke, at risk for post secondary complications including biomechanical shoulder issues, edema, joint contractures, depression, DVT's, and increased fall risk. AMPAC score 15 Patient is assessed as a Moderate 75060 complexity based on the following: History: See above Examination: see functional limitations as noted above Presentation: Evolving Decision Making: AMPAC score 15 GOALS Goals x1 week 1. Transfers with min (A) FWW 2. Dressing sitting in bed min (A) don and doffing [facility] gown, mod (A) don and doffing (B) socks 3. Bathing sitting in bed (I) with (B) UE, min (A) abdomen, mod (A) (B) LE 4. Toileting on commode with min (A) 5. Eating min (A) PLAN OF CARE/TREATMENT PLAN: 1x/day, 5 days/ week x 1week Initiate Occupational Therapy Services for bathing, dressing, grooming, toileting, eating, transfer training. DISCHARGE RECOMMENDATIONS Based on pts functional limitations at this time and increased risk for post seconday complications due to stroke, OT recommends that pt go to SNF when medically cleared per MD. TREATMENT TIME/MINUTES/CODES 49146, 20 minutes (08:00)) Anne Marie Amato OTR/[facility]
--- NOTE | 2019-09-04 10:20 | PDOC.CMIN ---
- If Service Date Differs Date of service: 09/04/19 Time of Service: 10:20 Care Management Initial Assess REASON FOR HOSPITALIZATION:: Acute CVA PAST MEDICAL HISTORY/PAST SURGICAL HISTORY:: Medical History (Updated 09/03/19 @ 18:55 by Risa Fleming MD). Anxiety with depression (Acute). Aortic valve replaced. Back pain (Acute). CAD (coronary artery disease). COPD (chronic obstructive pulmonary disease). CVA (cerebral vascular accident) (Chronic). Diabetic neuropathy. DM (diabetes mellitus). GERD (gastroesophageal reflux disease) (Chronic). H/O: HTN (hypertension) (Acute). Hematuria (Acute). History of bloody stools (Acute). HTN (hypertension). Hx of fall (Acute). Hyperlipidemia (Acute). Hypothyroidism. Hypothyroidism (acquired) (Acute). Insomnia (Acute). Memory impairment (Acute). Obesity (Chronic). IVETTE (obstructive sleep apnea). IVETTE on CPAP (Chronic). Pacemaker. Passive suicidal ideations (Acute). Perforated tympanic membrane (Acute). Polypharmacy (Acute). Proteinuria (Acute). Rash, skin (Acute). Renal insufficiency. Sick sinus syndrome (Acute). Sinus node dysfunction (Acute). Tinea cruris (Acute). Surgical History (Updated 09/03/19 @ 18:31 by Risa Fleming MD). Coronary Artery Bypass Gaft (CABG). Coronary Stent. CABGx4. H/O carotid endarterectomy (Acute). Pacemaker. Replacement of aortic valve PREVIOUS FUNCTIONAL STATUS/SOCIAL/FAMILY SUPPORTS:: Sher lives alone in an apartment at the [facility] in [facility]. He has a sister that lives locally who is very supportive. He also has a brother in [place] and 2 sons in the [facility]. 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 He uses a walker and canes to assist with ambulation and he also has a scooter that is broken that he uses to get around town. Sher had an appointment scheduled at [facility] this week to replace it. That appointment will need to be re-scheduled. CURRENT FUNCTIONAL STATUS:: Sher was sitting up in bed when CM met with him. He was pleasant and engaged with CM but admitted to being really tired today. He was seen by Dr. Haynes and speech therapy as well as the hospitalist. The speech therapist was unable to complete her evaluation due to Sher being so sleepy. ADVANCE DIRECTIVES:: Sher has advanced directives but they are not on file at [facility]. His 2 sons are HCAs. Has patient been provided with info about the portal/API?: No Did the patient sign up for the portal?: No CODE STATUS:: DNI INSURANCE COVERAGE / FINANCIAL ISSUES:: [facility] HMO. Medicaid CURRENT HOME/COMMUNITY SERVICES/EQUIPMENT:: Sher has an electric wheelchair/scooter, walker and canes. He has a pillowcase folder through [place] [facility] (Cheli grant) and is also working with Valeria Ontiveros from [facility]. PRIMARY CARE PHYSICIAN:: Asmita Brown POTENTIAL DISCHARGE NEEDS:: Follow up with PCP and discharge plan of care. Sher may need to go to short term rehab or a more supervised living facility such as an assisted living facility. PATIENT/FAMILY EDUCATION NEEDS:: Discharge plan, limitations, follow up plan, Ask Me Three TRANSPORTATION:: to be determined depending on disposition PLAN:: Sher will likely need to go to a fpc facility for rehab or placement when ready for discharge. Disposition will be determined by the course of his illness. will continue to support Sher, his family and discharge planning needs.
[2019-09-04] MEDS: Cyanocobalamin 500 MCG TAB 1000 MCG PO (10:57)
[2019-09-04] MEDS: POTASSIUM CHLORIDE 20 MEQ/100 ML BAG 50 MEQ IVPB ×2 (10:58→13:18)
[2019-09-04] MEDS: Insulin Aspart 300 UNITS/3 ML PEN 30 UNITS SC ×2 (12:16→17:19)
[2019-09-04 12:22] VITALS: BP 169/81; PULSE 73; RESP 18; TEMP 36.3; O2SAT 93
--- NOTE | 2019-09-04 14:48 | W.NEUROCONSU ---
Date of service: 09/04/19 Time of Service: 14:49 Assessment and Plan Assessment and plan (1) Right middle cerebral artery stroke: Status: Acute (2) Left hemiparesis: Status: Acute (3) Dysarthria: Status: Acute (4) Poorly controlled diabetes mellitus: Status: Acute Assessment and plan: Mr. Hinkle is a 69 year-old, right-handed man with a complicated past medical history including prior stroke of unclear etiology and poorly-controlled diabetes admitted for new right basal ganglia stroke manifested by left hemiparesis, dysarthria, and dysphagia, likely due to small vessel disease from poorly-controlled diabetes and hypertension. I agree with combination of aspiring 81mg daily + Plavix 75mg daily for stroke prevention. He should continue atorvastatin 80mg HS as well. Continue permissive hypertension with slow lowering to goal of 140/80 as an outpatient. Continue work-up with TTE and extended 30 day cardiac monitoring. He needs ST, PT, OT. Otherwise, I strongly recommend inpatient rehabilitation to help with getting diabetes and blood pressures under control (along with rehab) and discussed long-term placement with him as well. History of Present Illness History of Present Illness Chief Complaint: stroke Narrative: Handedness: right. HPI: Mr. Hinkle is a 69-year-old, right-handed man with a complicated PMHx including hypertension, hyperlipidemia, poorly controlled type 2 diabetes with known peripheral neuropathy, coronary artery disease s/p CABG x4, cardiac stents and a TAVR in 2016; carotid stenosis s/p endarterectomy, sick sinus syndrome s/p pacemaker, obstructive sleep apnea on CPAP, and medication non-adherence. Mr. Hinkle suffered a right temporoccipital ischemic infarct on 10/14/18 manifested by nausea, emesis, and headache (no visual field defect surprisingly) for which he was admitted at [facility]. In the emergency room, his glucose was greater than 500. He had a sodium of 126 (-> 133) and a creatinine of 1.41 (-> 1.28). His troponin was mildly elevated at 0.51 (-> 0.4 ->0.4 -> 0.34). He was on aspirin 81 mg daily at baseline along with atorvastatin 80mg. He underwent an extensive work-up including an MRI despite having a pacemaker along with MRA head, CTA neck, CUS, TTE, ANGEL, and 30 day cardiac monitoring. The etiology of his stroke remains unknown to this day. His aspirin was switched to 75 mg of Plavix daily for secondary stroke prevention (however, I had contemplated ASA+ low-dose Xarelto combo based on 2018 Compass study, but opted not to do this because of medication adherance issues). I last saw him in December 2018. Mr. Hinkle presented to the [facility] ER on 09/02/19 after waking up with generalized weakness. When getting out of bed, he slid to the floor and was unable to get back up. In the emergency room, he had no focal neurological findings. Per his sister, his weakness had been progressing over 2 weeks. His strength was reportedly 5/5 in the emergency room. His initial BP was 180/91 (not unusual for him, unfortunately). He was discharged to home after an extensive normal laboratory work-up and a CTH with no acute findings. He presented back to the [facility] ER on 09/03/19 this time after waking up with left face, arm, and leg weakness as well has bilateral leg weakness. In the emergency room, his blood pressure was 191/100. He has since undergone the imaging below. He cannot under go MRI due to PM placement. He has been admitted for suspected stroke. He has been placed on aspirin + Plavix combination. Work-up: -CTH (09/02/19): no acute findings. Old right temporoccipital infarct. I reviewed these images personally. -CTH (09/03/19): Subtle appearance of what appears to be a small new infarct in the right basal ganglia. Old right temporoccipital infarct. I reviewed these images personally. -CTA head/neck (09/03/19): unremarkable. I reviewed these images personally. -A1c = 11.0 -LDL = 81 Consults Requesting physician: Risa Fleming Review of Systems All systems reviewed & are unremarkable except as noted in HPI and below [facility] History Anxiety with depression (Acute) Aortic valve replaced Back pain (Acute) CAD (coronary artery disease) COPD (chronic obstructive pulmonary disease) CVA (cerebral vascular accident) (Chronic) Diabetic neuropathy DM (diabetes mellitus) GERD (gastroesophageal reflux disease) (Chronic) H/O: HTN (hypertension) (Acute) Hematuria (Acute) History of bloody stools (Acute) HTN (hypertension) Hx of fall (Acute) Hyperlipidemia (Acute) Hypothyroidism Hypothyroidism (acquired) (Acute) Insomnia (Acute) Memory impairment (Acute) Obesity (Chronic) IVETTE (obstructive sleep apnea) IVETTE on CPAP (Chronic) Pacemaker Passive suicidal ideations (Acute) Perforated tympanic membrane (Acute) Polypharmacy (Acute) Proteinuria (Acute) Rash, skin (Acute) Renal insufficiency Sick sinus syndrome (Acute) Sinus node dysfunction (Acute) Tinea cruris (Acute) Surgical History Coronary Artery Bypass Gaft (CABG) Coronary Stent CABGx4 H/O carotid endarterectomy (Acute) Pacemaker Replacement of aortic valve Family History Other Cancer Heart disease Social History Smoking/Tobacco Use Status: Never Alcohol Intake: former Drug use: Never Substance use type: does not use Details: Pt reports no alcohol since his heart attack 1995 Household members: none Housing: other Details: [facility] Number of Children: 2 current occupation: Lives at [facility]. Disabled since . Seatbelt use: always Do you feel safe at home: Yes Do you feel safe in your relationship?: Yes Additional Social history: lives alone, area on aging comes in to assiste pt. Reports safety issue regarding leg giving out. Visit Medication and Allergies Active Medications Generic Name Dose Route Start Last Admin Trade Name Freq PRN Reason Stop Dose Admin Acetaminophen 0 mg 09/03/19 15:05 Tylenol PO Q4H PRN PRN Al Hydrox/Mg Hydrox/Simethicone 30 ml 09/03/19 15:05 Mylanta Liquid PO Q2H PRN PRN Albuterol Sulfate 0 puff 09/03/19 18:22 Ventolin Hfa IH Q4H PRN PRN Aspirin 81 mg 09/04/19 08:30 09/04/19 09:12 Ecotrin PO 81 mg DAILY BG Administration Atorvastatin Calcium 80 mg 09/03/19 22:00 09/03/19 21:27 Lipitor PO 80 mg HS BG Administration Budesonide/Formoterol Fumarate 0 puff 09/03/19 20:00 09/04/19 08:00 Symbicort 80/4.5 Mcg Inhaler IH 2 puffs BID [facility] Administration Cholecalciferol 1,000 units 09/04/19 08:30 09/04/19 09:12 Vitamin D PO 1,000 units DAILY BG Administration Clopidogrel Bisulfate 75 mg 09/04/19 08:30 09/04/19 09:11 Plavix PO 75 mg DAILY BG Administration Cyanocobalamin 1,000 mcg 09/05/19 08:30 Vitamin B-12 PO DAILY BG Dextrose 0 gm 09/03/19 15:09 Insta-Glucose PO DIRECTED PRN Dextrose/Water 0 gm 09/03/19 15:09 IVP DIRECTED PRN Dimethicone/Zinc Oxide 0 gm 09/03/19 15:00 Dorota Protect Cream TP PRN PRN Docusate Sodium 100 mg 09/03/19 15:05 Colace PO TID PRN PRN Ezetimibe 10 mg 09/04/19 08:30 09/04/19 09:11 Zetia PO 10 mg QAM [facility] Administration Fluoxetine HCl 20 mg 09/04/19 08:30 09/04/19 09:12 Prozac PO 20 mg DAILY [facility] Administration Fluticasone Propionate 0 gm 09/04/19 08:30 09/04/19 12:35 Flonase NS Not Given DAILY [facility] Gabapentin 400 mg 09/03/19 22:00 09/03/19 21:27 Neurontin PO 400 mg HS [facility] Administration Heparin Sodium (Porcine) 5,000 units 09/03/19 16:00 09/04/19 09:15 SC 5,000 units Q8H [facility] Administration Insulin Aspart 0 units 09/03/19 16:30 09/04/19 12:17 Novolog Flexpen SC Not Given AC & HS [facility] Protocol Insulin Aspart 30 units 09/03/19 16:30 09/04/19 12:16 Novolog Flexpen SC 30 units AC [facility] Administration Insulin Detemir 54 units 09/03/19 20:00 09/04/19 09:14 Levemir Flextouch Pen SC 54 units BID@0800,2000 [facility] Administration Isosorbide Mononitrate 120 mg 09/04/19 08:30 09/04/19 09:11 Imdur PO 120 mg QAM [facility] Administration Ketorolac Tromethamine 0 ml 09/03/19 20:00 09/04/19 12:15 Acular Ls 0.4% OP 1 drp QID [facility] Administration Levothyroxine Sodium 175 mcg 09/04/19 06:00 09/04/19 06:00 Levothroid PO Not Given 0600 [facility] Losartan Potassium 100 mg 09/04/19 08:30 09/04/19 09:20 Cozaar PO 100 mg DAILY [facility] Administration Magnesium Chloride 64 mg 09/04/19 08:30 09/04/19 09:12 Slow-Mag PO 64 mg DAILY [facility] Administration Magnesium Hydroxide 30 ml 09/03/19 15:05 Milk Of Magnesia PO DAILY PRN PRN Metoprolol Succinate 100 mg 09/04/19 08:30 09/04/19 09:12 Toprol Xl PO 100 mg DAILY [facility] Administration Metoprolol Tartrate 2.5 mg 09/03/19 15:07 Lopressor Injection IVP Q6H PRN PRN Mirtazapine 15 mg 09/04/19 22:00 Remeron PO HS [facility] Multivitamins 1 tab 09/04/19 08:30 09/04/19 09:12 PO 1 tab QAM [facility] Administration Nitroglycerin 0.4 mg 09/03/19 18:22 09/03/19 23:01 Nitrostat SL 0.4 mg PRN PRN Administration Omeprazole 40 mg 09/04/19 07:30 09/04/19 09:11 Prilosec PO 40 mg DAILY@0730 [facility] Administration Polyethylene Glycol 17 gm 09/04/19 08:30 09/04/19 09:14 Miralax PO 17 gm DAILY [facility] Administration Ropinirole HCl 2 mg 09/03/19 22:00 09/03/19 21:27 Requip PO 2 mg HS [facility] Administration Tamsulosin HCl 0.4 mg 09/04/19 08:30 09/04/19 09:11 Flomax PO 0.4 mg DAILY BG Administration Allergies No Known Allergies Allergy (Unverified 09/02/19 09:44) Exam Narrative Exam Narrative: Physical Exam: Gen: Patient of apparent stated age, NAD Head and face: no facial or cranial abnormalities Neck: Supple, no meningismus, no occipital tenderness CV: + S1, S2, RRR, no murmur Resp: CTA B/L Abd: soft, nontender, nondistended Ext: Mild bilateral LE edema. No clubbing or cyanosis. No bony deformity. Neuro Exam: Language: fluency, naming, repetition, and comprehension intact; Mental Status: AAOx3, current events and fund of knowledge somewhat impaired Speech: mild dysarthria Cranial nerves: Funduscopy: not performed CN II: visual fry intact CN III, IV, : extraocular movements intact, no nystagmus, pupils symmetric and reactive to light CN V: face sensation intact to LT and PP CN VII: left nasolabial fold flattening CN VIII: hearing intact bilaterally CN IX, X: palate rises symmetrically CN XI: trapezius/SCM 5/5 bilaterally CN XII: protrudes tongue symmetrically Sensory: reduced to PP in left arm and leg; Motor: bulk and tone intact. Fine motor movements reduced on the left. Left pronator drift. Strength 5/5 in the RUE, 4/5 LUE diffusely, 4+/5 proximal RLE, 4/5 proximal LLE with distal strength 5/5 bilaterally. Reflexes: hypereflexic throughout; toes neutral bilaterally; Coordination: no ataxia Gait: unsafe to ambulate at this time without 2+ assistance Results Last Vital Signs Temp 36.3 C L 09/04/19 12:22 Pulse 73 09/04/19 12:22 Resp 18 09/04/19 12:22 BP 169/81 H 09/04/19 12:22 Pulse Ox 93 L 09/04/19 12:22 Labs Result diagrams: 09/04/19 06:28 09/04/19 06:28 Labs: Laboratory Results - last 24 hr 09/03/19 09/03/19 09/03/19 06:28 08:12 10:18 WBC RBC Hgb Hct MCV MCH MCHC RDW Plt Count MPV Immature Gran % Neutrophils % Lymphocytes % Monocytes % Eosinophils % Basophils % Absolute Neutrophils Absolute Lymphocytes Absolute Monocytes Absolute Eosinophils Absolute Basophils Sodium Potassium Chloride Carbon Dioxide Anion Gap BUN Creatinine Estimated GFR/1.73 m2 Glucose Hemoglobin A1c 11.0 H Calcium Magnesium Troponin I NT-Pro-B Natriuret Pep 5983 H Triglycerides Total Cholesterol LDL Cholesterol, Calc HDL Cholesterol Vitamin B12 COVID-19 PCR Negative Nasopharyn COVID-19 PCR Not Applicable Ref Test Perform Site [facility] 09/03/19 09/04/19 09/04/19 15:30 06:28 06:28 WBC 8.37 RBC 4.27 L Hgb 12.4 L Hct 37.4 L MCV 87.6 MCH 29.0 MCHC 33.2 RDW 14.6 H Plt Count 295 MPV 9.8 Immature Gran % 0.1 Neutrophils % 67.8 Lymphocytes % 21.9 Monocytes % 6.3 Eosinophils % 3.3 Basophils % 0.6 Absolute Neutrophils 5.67 Absolute Lymphocytes 1.83 Absolute Monocytes 0.53 Absolute Eosinophils 0.28 Absolute Basophils 0.05 Sodium 141 Potassium 3.2 L Chloride 104 Carbon Dioxide 30.7 Anion Gap 6.3 BUN 10 Creatinine 1.01 Estimated GFR/1.73 m2 >= 60.00 Glucose 98 D Hemoglobin A1c Calcium 8.9 Magnesium 1.9 Troponin I < 0.05 < 0.05 NT-Pro-B Natriuret Pep Triglycerides 131 Total Cholesterol 155 LDL Cholesterol, Calc 81 HDL Cholesterol 48 Vitamin B12 314 COVID-19 PCR Nasopharyn COVID-19 PCR Ref Test Perform Site
[2019-09-04 15:06] VITALS: RESP 18
[2019-09-04 15:30] VITALS: BP 122/76; PULSE 67; RESP 19; TEMP 37.1; O2SAT 96
--- NOTE | 2019-09-04 15:31 | W.SPEECHNOTE ---
Date of service: 09/04/19 Time of Service: 15:31 Speech Therapy Visit Note Note: Patient is a 69 -year-old male referred to Speech Language Pathology services with diagnosis of acute CVA, dysarthria, h/o aortic valve replacement, Type II DM, IVETTE, HTN, COPD, cognitive impairment. Pt screened by PICKED EDGE SEWING MACHINE OPERATOR briefly in AM, demonstrates L sided facial droop and suspected L sided lingual/labial weakness as evidenced by dysarthric speech, approx 60% intelligible at phrase/sentence level to unfamiliar listener, 80-90% w cued repetitions; appreciate cognitive impairment and confusion noted per chart review. Pt able to express wants/needs, oriented to place, and able to state where he lives, independently offering descriptive visual features of living environment, it's yellow on the front and what he had eaten for breakfast oatmeal I think; pt demonstrates self-awareness of new onset dysarthria. Swallowing: Pt on modified diet of soft/bite-sized solids, thin liquids with instruction for small bites per nursing interview; Physical Therapist reports pt had drink of thin liquid/water earlier with observed coughing, however pt is reportedly able to tolerate provided foods on modified diet. Pt otherwise reports dry cough. PICKED EDGE SEWING MACHINE OPERATOR attempted to assess pt x3 throughout rest of day and pt lethargic and/or sleeping, unable to complete further swallow screen on this date. Recommend full PICKED EDGE SEWING MACHINE OPERATOR evaluation for dysarthria/cognitive-communication abilities and swallow evaluation as appropriate; Recommend referral for outpatient PICKED EDGE SEWING MACHINE OPERATOR services if evaluation is unable to be completed prior to discharge.
--- NOTE | 2019-09-04 18:41 | PGE_ITS ---
Date of Service Date of service: 09/04/19 Time of Service: 18:41 Assessment and Plan Assessment and plan (1) Right middle cerebral artery stroke: Status: Acute Assessment and plan: neurology consulted. will continue asa 81 mg plus plavix daily, atorvastatin 80 mg at HS needs TTE and 30 day cardiac monitoring. continue SOLAR SALES ASSESSOR/OT/PT (2) Poorly controlled diabetes mellitus: Status: Acute Assessment and plan: hemoglobin A1C is 11.0, which is actually improved from 13.7 in october blood sugars well controlled today in the 110's, continue current diabetes management (3) Hypokalemia: Status: Acute Assessment and plan: received 20 meq IV today, magnesium 1.9. replete and follow (4) DVT prophylaxis: Status: Acute Assessment and plan: heparin sq (5) Essential hypertension: Status: Acute Assessment and plan: blood pressure stable, would allow for permissive hypertension (6) Discharge planning issues: Status: Acute Assessment and plan: will need swing level stay for rehabilitation. case management following case discussed with DR Fleming who is in agreement with plan Subjective Subjective Patient reports: no new complaints, feels better, tolerating liquids well, tolerating a regular diet and afebrile Interval history since last seen: sotelo with some bloody drainage and leaking around catheter. Exam Const General: cooperative and comfortable Nutritional Appearance: obese Orientation: alert, awake and oriented x3 HENNH Head: normal to inspection, normocephalic and atraumatic Face and sinus: other (left sided facial droop) Mouth: oral mucosae normal Resp Effort & Inspection: normal respiratory effort Auscultation: clear to auscultation bilaterally Cardio Rate: regular rate Rhythm: regular rhythm GI Inspection: normal to inspection and obesity Palpation: soft Auscultation: normal bowel sounds General: other (sotelo draining blood tinged urine) Skin General skin exam: no rashes or lesions noted (chronic venous stasis changes to bilateral lower extremities) Neuro General: patient alert, patient awake, patient oriented x3 and moves all extremities (left sided weakness) Cognition: normal cognition Speech: abnormal speech slurred Motor: strength 5/5 throughout (4/4 on left. ) Extrem General: normal to inspection and edema (trace) Laterality: bilateral Objective Objective Clinical Data: Abnormal lab results 09/03/19 09/03/19 09/04/19 Range/Units 06:28 08:12 06:28 RBC (4.50-6.00) m/cumm Hgb (13.5-17.5) g/dL Hct (40.0-50.0) % RDW (11.8-14.1) % Potassium 3.2 L (3.5-5.1) mmol/L Hemoglobin A1c 11.0 H (3.8-5.6) % NT-Pro-B Natriuret Pep 5983 H (<300) pg/mL 09/04/19 Range/Units 06:28 RBC 4.27 L (4.50-6.00) m/cumm Hgb 12.4 L (13.5-17.5) g/dL Hct 37.4 L (40.0-50.0) % RDW 14.6 H (11.8-14.1) % Potassium (3.5-5.1) mmol/L Hemoglobin A1c (3.8-5.6) % NT-Pro-B Natriuret Pep (<300) pg/mL Vital Signs Temperature 37.1 C 09/04/19 15:30 Temperature Source Tympanic 09/04/19 15:30 Pulse 67 09/04/19 15:30 Pulse Rhythm Regular 09/04/19 16:42 Pulse 85 09/03/19 16:10 Respiratory Rate 19 09/04/19 15:30 Respiratory Effort 09/04/19 16:42 Respiratory Depth Normal 09/04/19 16:42 Respiratory Pattern Normal 09/04/19 16:42 Blood Pressure 122/76 09/04/19 15:30 Blood Pressure Mean 104 09/03/19 16:01 Blood Pressure Position Supine 09/03/19 08:11 Pulse Oximetry 96 09/04/19 15:30 Oxygen Delivery Method Room Air 09/04/19 15:30 Oxygen Flow Rate 0 09/04/19 15:30 Fraction of Inspired Oxygen (FIO2) 21 09/03/19 22:00 Pain Level 0 09/04/19 15:30 Intake & Output 09/03/19 09/04/19 09/04/19 23:59 11:59 23:59 Intake Total 340 / 340 Output Total 2225 / 2225 750 / 1040 290 / 1040 Balance -2225 / -2215 -750 / -700 50 / -700 Weight 133.4 kg 127.2 kg Intake: IV 100 / 100 Oral 240 / 240 Output: Urine 2225 / 2225 750 / 1040 290 / 1040 Other: Urine Color Yellow Diego Bright Red Bright Red Urine Appearance Clear Clear Hematuria Urine Odor Normal Comment RN notifed about change in urine color Laboratory Results WBC 8.37 k/cumm (4.4-10.8) 09/04/19 06:28 RBC 4.27 m/cumm (4.50-6.00) L 09/04/19 06:28 Hgb 12.4 g/dL (13.5-17.5) L 09/04/19 06:28 Hct 37.4 % (40.0-50.0) L 09/04/19 06:28 MCV 87.6 fL (80-95) 09/04/19 06: MCH 29.0 pg (27.0-33.0) 09/04/19 06: MCHC 33.2 g/dL (32.0-36.0) 09/04/19 06: RDW 14.6 % (11.8-14.1) H 09/04/19 06:28 Plt Count 295 x1000/uL (130-400) 09/04/19 06:28 MPV 9.8 fL (8.0-11.0) 09/04/19 06:28 Immature Gran % 0.1 % 09/04/19 06:28 Neutrophils % 67.8 09/04/19 06:28 Lymphocytes % 21.9 09/04/19 06:28 Monocytes % 6.3 09/04/19 06: Eosinophils % 3.3 09/04/19 06:28 Basophils % 0.6 09/04/19 06:28 Absolute Neutrophils 5.67 k/cumm (1.2-6.7) 09/04/19 06: Absolute Lymphocytes 1.83 k/cumm (1.2-3.4) 09/04/19 06: Absolute Monocytes 0.53 k/cumm (0.11-0.7) 09/04/19 06:28 Absolute Eosinophils 0.28 k/cumm (0.0-0.7) 09/04/19 06: Absolute Basophils 0.05 k/cumm (0.0-0.2) 09/04/19 06:28 PT 10.8 sec (9.3-11.0) 09/03/19 08:12 INR 1.1 (0.9-1.1) 09/03/19 08:12 APTT 25.3 sec (21.0-31.4) 09/03/19 08:12 Sodium 141 mmol/L (136-145) 09/04/19 06:28 Potassium 3.2 mmol/L (3.5-5.1) L 09/04/19 06:28 Chloride 104 mmol/L (98-107) 09/04/19 06:28 Carbon Dioxide 30.7 mmol/L (21.0-32.0) 09/04/19 06:28 Anion Gap 6.3 mmol/L (3-11) 09/04/19 06:28 BUN 10 mg/dL (7-18) 09/04/19 06:28 Creatinine 1.01 mg/dL (0.70-1.30) 09/04/19 06:28 Estimated GFR/1.73 m2 >= 60.00 (mL/min/1.73m2) 09/04/19 06:28 Glucose 98 mg/dL (74-106) D 09/04/19 06:28 Hemoglobin A1c 11.0 % (3.8-5.6) H 09/03/19 06:28 Calcium 8.9 mg/dL (8.5-10.1) 09/04/19 06:28 Magnesium 1.9 mg/dL (1.8-2.4) 09/04/19 06:28 Total Bilirubin 1.6 mg/dL (0.2-1.0) H 09/03/19 08:12 AST 29 U/L (15-37) 09/03/19 08:12 ALT 23 U/L (16-63) 09/03/19 08:12 Alkaline Phosphatase 96 U/L (46-116) 09/03/19 08:12 Creatine Kinase 247 U/L (39-308) 09/03/19 08:12 Troponin I < 0.05 ng/mL (<0.06) 09/04/19 06:28 NT-Pro-B Natriuret Pep 5983 pg/mL (<300) H 09/03/19 08:12 Total Protein 6.9 g/dL (6.4-8.2) 09/03/19 08:12 Albumin 2.8 g/dL (3.4-5.0) L 09/03/19 08:12 Triglycerides 131 mg/dL (<150) 09/04/19 06:28 Total Cholesterol 155 mg/dL (<200) 09/04/19 06:28 LDL Cholesterol, Calc 81 mg/dL (<100) 09/04/19 06:28 HDL Cholesterol 48 mg/dL (40-60) 09/04/19 06:28 Vitamin B12 314 pg/mL (193-986) 09/04/19 06:28 TSH 5.32 uIU/mL (0.36-3.74) H 09/03/19 08:12 Urine Color Yellow (Yellow) 09/03/19 10:18 Urine Clarity Clear (Clear) 09/03/19 10:18 Urine pH 7.0 (5-8) 09/03/19 10:18 Ur Specific [place] 1.020 (1.005-1.025) 09/03/19 10:18 Urine Protein >=300 mg/dL (Negative) H 09/03/19 10:18 Urine Ketones Trace mg/dL (Negative) H 09/03/19 10:18 Urine Blood Small (Negative) H 09/03/19 10:18 Urine Nitrite Negative (Negative) 09/03/19 10:18 Urine Bilirubin Negative (Negative) 09/03/19 10:18 Urine Urobilinogen 0.2 EU/dL (Up TO 0.2) 09/03/19 10:18 Ur Leukocyte Esterase Negative (Negative) 09/03/19 10:18 Urine RBC 5-10 HPF (0-2) H 09/03/19 10:18 Urine WBC 0-2 HPF (0-5) 09/03/19 10:18 Ur Epithelial Cells Rare HPF (Negative) 09/03/19 10:18 Urine Crystals Negative HPF (Negative) 09/03/19 10:18 Urine Bacteria Negative HPF (Negative) 09/03/19 10:18 Urine Casts 0-2 coarse granular LPF (Negative) 09/03/19 10:18 Urine Mucus Negative (Negative) 09/03/19 10:18 Ur Culture Indicated? No 09/03/19 10:18 Urine Glucose 500 mg/dL (Negative) H 09/03/19 10:18 COVID-19 PCR Negative (Negative) 09/03/19 10:18 Nasopharyn COVID-19 PCR Not Applicable 09/03/19 10:18 Ref Test Perform Site [facility] 09/03/19 10:18
[2019-09-04 19:10] VITALS: BP 162/95; PULSE 70; RESP 19; TEMP 36.8; O2SAT 97
[2019-09-04] MEDS: rOPINIRole 1 MG TAB 2 MG PO (21:19)
[2019-09-04] MEDS: Gabapentin 400 MG CAP PO (21:20)
[2019-09-04] MEDS: Atorvastatin 40 MG TAB 80 MG PO (21:20)
[2019-09-04] MEDS: Mirtazapine 15 MG TAB PO (21:20)
[2019-09-05] VITALS (7 sets, daily range): BP systolic 102–158; BP diastolic 61–98; PULSE 59–69; RESP 16–20; TEMP 36.1–37; O2SAT 95–99
[2019-09-05] MEDS: Heparin 5,000 UNITS/ML VIAL 5000 UNITS SC ×3 (00:27→16:58)
[2019-09-05] MEDS: Levothyroxine 175 MCG TAB PO (06:13)
[2019-09-05] MEDS: Budesonide/Formoterol 80/4.5 6.9 GM 60 PUFF INH IH ×2 (08:24→19:28)
[2019-09-05] MEDS: Losartan 50 MG TAB 100 MG PO (08:53)
[2019-09-05] MEDS: Tamsulosin 0.4 MG CAPCR PO (08:54)
[2019-09-05] MEDS: Cholecalciferol (Vitamin D3) 1,000 UNIT TAB 1000 UNITS PO (08:54)
[2019-09-05] MEDS: Aspirin E.C. 81 MG TABEC PO (08:54)
[2019-09-05] MEDS: Omeprazole 20 MG CAPCR 40 MG PO (08:54)
[2019-09-05] MEDS: Magnesium Chloride 64 MG TABCR PO (08:54)
[2019-09-05] MEDS: Ezetimibe 10 MG TAB PO (08:54)
[2019-09-05] MEDS: Isosorbide Mononitrate 60 MG TABCR 120 MG PO (08:54)
[2019-09-05] MEDS: Metoprolol CR 100 MG TABCR PO (08:54)
[2019-09-05] MEDS: Multivitamin TAB 1 TAB PO (08:55)
[2019-09-05] MEDS: Clopidogrel 75 MG TAB PO (08:55)
[2019-09-05] MEDS: FLUoxetine 20 MG CAP PO (08:55)
[2019-09-05] MEDS: Cyanocobalamin 500 MCG TAB 1000 MCG PO (08:55)
[2019-09-05] MEDS: Fluticasone NASAL SPRAY 16 GM BTL NS (08:56)
[2019-09-05] MEDS: Polyethylene Glycol 3350 17 GM PACKET PO (08:57)
--- NOTE | 2019-09-05 09:10 | PT.INTREAT ---
Date of service: 09/05/19 Time of Service: 09:10 PT Notes Visit Reasons: ACUTE CVA Physical Therapy Inpatient Treatment Note Date: 09/05/2019 Precautions: Fall. Standard. Activity as tolerated. Subjective: No exacerbation of symptoms reported today. Patient reports that he feels a little better than he did yesterday. A little less tired today. He states that his left upper and lower extremity feels the same as they did yesterday, not worse nor better. He continues to be agreeable with placement in a nursing home facility to achieve his prior level of function. Sister was present in the room towards the end of the session. Objective: General Observation: Obese. L half of face drooped. IV in L UE. TEDS to B legs. Red-colored urine in urinary bag, sotelo catheter in place. Telemetry in place. Mental Status: Alert and oriented for Pain: 3/10 in the low back area Bed Mobility/Transfers: Supine to sit moderate assist Sit to supine moderate assist Sit to stand contact-guard assist, cues needed for hand placement, requires use of a walker Stand to sit contact-guard assist, cues needed for hand placement, requires use of a walker Bed to chair contact-guard assist, cues needed for hand placement, requires use of a walker Chair to bed contact-guard assist, cues needed for hand placement, requires use of a walker Gait: Patient tolerated short distance ambulation of 50 feet +60 feet + 60 feet +40 feet with front wheeled walker with contact-guard assist. Vania decreased. Dorsiflexion on the left decreased. L Knee minimally gave way due to fatigue but no LOB was seen. THERA EX: Patient tolerated seated level exercises once x10, hip flexion x10, and ankle pumps x10 incorporate with deep breathing exercises after each activity with good response in patient. Balance: Static Sitting: Normal Dynamic Sitting: Good Static Standing: Fair Dynamic Standing: Fair Assessment: Tolerated level surface ambulation today well with 1 incident of left knee giving way but without resulting LOB as patient was able to stop and hold onto the front wheeled walker in a timely manner. Patient reported discomfort in low back area with prolonged bedside chair positioning. Emphasized safe movement transitions from sit to stand during ambulation activity to maximize safety. DISCHARGE RECOMMENDATIONS: Patient will benefit from nursing home facility placement for continued skilled physical therapy services in order to progress mobility level, strength, and balance in preparation for a safe discharge to home. TREATMENT CODE/TIME: 88341 x 30 minutes, one 0 x 16 minutes beginning at 9:10 AM.
--- NOTE | 2019-09-05 09:48 | PDOC.CMPRO ---
- If Service Date Differs Date of service: 09/05/19 Time of Service: 09:48 Care Management Progress Note S/O:Sher was sitting up in bed visiting with his sister Luisa when CM met with him. He was pleasant and agreeable to conversation. CM discussed transfer to a SNF for rehab and Sher and his sister both stated that they feel this is necessary. There has been some discussion about longer term placement but Sher was clear that he hopes that with rehab, he will be able to get stronger and return home to care for himself. He requested that a referral be sent to [facility]. CM also spoke with Sher's sons Casey and Amy. They were en route to visit Sher from their home in [place] at the time. Casey is Sher's POA and was concerned when he learned that he would not be able to visit. Sher did not understand that once he designated a support person ,it could not be changed and he had already designated his sister. Additionally, Sher's sons are from an area with a high incidence of Covid-19 infections and would not meet [facility] criteria for visitation. CM provided contact information and will be available to speak with them and answer questions as needed. A: Sher is a 69 year old man admitted to [facility] on 09/03/19 with a CVA P:Sher will need to go to a fdc facility for rehab or placement when ready for discharge. A referral has been sent to [facility]. He has tentatively been accepted for transfer on Sunday, pending the receipt of authorization from Sher's insurance company. CM will continue to support Sher, his family and discharge planning needs.
--- NOTE | 2019-09-05 10:01 | OT.INTREAT ---
Date of service: 09/05/19 Time of Service: 07:40 Occupational Therapy Notes Occupational Therapy Inpatient Treatment Note Date: 09/05/19 PRECAUTIONS: Fall, Standard, DNI SUBJECTIVE: Pt was sitting in chair when OT arrived. He was agreeable to OT session and states that he is tired. OBJECTIVE: PAIN: c/o numbness throughout his body which he reports is no different than yesterday. BATHING: Sitting in chair with max (A) set up/clean up Upper Body: (I) washing face, mod (A) washing (B) UE with min vc, max (A) abdomen as pt was demonstrating fatigue. Lower Body: Max (A) (B) LE DRESSING: Upper Extremity: Mod (A) don and doffing hospital gown pt required PROM to (L) UE for arm into hospital gown. Lower Extremity: Max (A) don and doffing (B) socks. TOILETING: Device: Limon Assist- N/A ASSESSMENT/ PLAN: Pt is presenting with significant decreased functional activity tolerance. (L) hand presents with remarkable edema present and he states that he is getting a heavy feeling in it. OT emphasizes the importance of performing ROM and to use (L) UE as much as possible. Pt has decreased dynamic sitting balance which is poor at todays session. When leaning forward to wash his back he required stabilization and (A). OT will monitor pts response and progress according to symptoms. OT continues to recommend SNF for pt at this time. TREATMENT CODES/TIME: 44307, 20 minutes (07:40) Anne Marie Amato OTR/L [facility]
--- NOTE | 2019-09-05 11:00 | PHA.REVIEW ---
Pharmacy Admission Review - Admission Clinical Review (Last Reviewed 09/04/19 @ 16:45 by Shiela Sheffield MD) Hypokalemia (Acute) Poorly controlled diabetes mellitus (Acute) Left hemiparesis (Acute) Right middle cerebral artery stroke (Acute) Slurred speech (Acute) Facial droop (Acute) Generalized weakness (Acute) Dysarthria (Acute) Ambulatory dysfunction (Acute) Discharge planning issues (Acute) Acute CVA (cerebrovascular accident) (Acute) Hypomagnesemia (Acute) Essential hypertension (Acute 07/05/17) H/O aortic valve replacement (Acute 07/05/17) IVETTE (obstructive sleep apnea) (Acute 07/05/17) Type 2 diabetes mellitus with complication, with long-term current use of insulin (Acute 07/05/17) DVT prophylaxis (Acute) No Known Allergies Allergy (Unverified 09/02/19 09:44) Weight 127 kg - Comments Comments/Follow Ups: needs placement in SNF - Renal Dosing Renal Dosing: BUN 10 mg/dL (7-18) 09/04/19 06:28 Creatinine 1.01 mg/dL (0.70-1.30) 09/04/19 06:28 Medications needing adjustments: Reviewed (crcl ~54ml/min) - Anticoagulation Anticoagulation: Hgb 12.4 g/dL (13.5-17.5) L 09/04/19 06:28 Hct 37.4 % (40.0-50.0) L 09/04/19 06:28 Plt Count 295 x1000/uL (130-400) 09/04/19 06:28 INR 1.1 (0.9-1.1) 09/03/19 08:12 Creatinine 1.01 mg/dL (0.70-1.30) 09/04/19 06:28 DVT Prohphylaxis: Reviewed Medications: Heparin Therapeutic Anticoagulation: N/A - Relevant Labs Sodium 141 mmol/L (136-145) 09/04/19 06:28 Potassium 3.2 mmol/L (3.5-5.1) L 09/04/19 06:28 Chloride 104 mmol/L (98-107) 09/04/19 06:28 Magnesium 1.9 mg/dL (1.8-2.4) 09/04/19 06:28 Electrolytes, C-Reactive P, ESR: Reviewed (KCL bolus ordered) - DM Control DM Control: Glucose 98 mg/dL (74-106) D 09/04/19 06:28 Hemoglobin A1c 11.0 % (3.8-5.6) H 09/03/19 06:28 Finger Stick Blood Glucose 68 Finger Stick Blood Glucose 68 Finger Stick Blood Glucose 68 Finger Stick Blood Glucose 68 Finger Stick Blood Glucose 68 Finger Stick Blood Glucose 68 Finger Stick Blood Glucose 62 Insulin Dosing: Reviewed (insulin detemir dose decreased, also using insulin aspart SS and BG dosing) - Heart Failure/OK Heart Failure/OK: Troponin I < 0.05 ng/mL (<0.06) 09/04/19 06:28 NT-Pro-B Natriuret Pep 5983 pg/mL (<300) H 09/03/19 08:12 - BP Control BP Control: Blood Pressure 158/98 Blood Pressure 128/78 Blood Pressure 120/69 - Qtc Review If Elevated: Reviewed (521 Mirtazapine (MI), Fluoxetine (CR), Omeprazole (CR)) - IV to PO Switch IV Medications: Reviewed (IV metoprolo PRN,) - Current meds Current Medication Order Review: Reviewed
[2019-09-05] MEDS: Insulin Aspart 300 UNITS/3 ML PEN 30 UNITS SC ×2 (11:59→16:58)
[2019-09-05] MEDS: Insulin Aspart 300 UNITS/3 ML PEN SC (11:59)
--- NOTE | 2019-09-05 13:10 | PGE_ITS ---
Date of Service Date of service: 09/05/19 Time of Service: 13:10 Assessment and Plan Assessment and plan (1) Right middle cerebral artery stroke: Status: Acute Assessment and plan: stable. neurology following. will continue asa 81 mg plus plavix daily, atorvastatin 80 mg at HS needs TTE and 30 day cardiac monitoring. continue P[employer]HER [employer]NER/OT/PT (2) Poorly controlled diabetes mellitus: Status: Acute Assessment and plan: hemoglobin A1C is 11.0, which is actually improved from 13.7 in october blood sugars low overnight to a low of 52, will decrease basal insulin to 40 units bid, continue to closely monitor and adjust as needed. (3) Hypokalemia: Status: Acute Assessment and plan: repleted yesterday, magnesium was 1.9 will repeat levels tomorrow. (4) DVT prophylaxis: Status: Acute Assessment and plan: heparin sq (5) Essential hypertension: Status: Acute Assessment and plan: blood pressure stable, would allow for permissive hypertension (6) Discharge planning issues: Status: Acute Assessment and plan: will need swing level stay for rehabilitation. case management following. referrals placed. case discussed with DR Fleming who is in agreement with plan Subjective Subjective Patient reports: no new complaints, feels better, tolerating liquids well, tolerating a regular diet, bowel movement and afebrile Interval history since last seen: ashleigh continues to have blood tinged urine likely from getting pulled on. sotelo discontinued without incident. working with physical therapy and reambulated with walker, feeling like his left knee may 'give out and with some trouble holding on to left side of walker. blood sugars low today to 52, reports he is symptomatic below 60. Exam Const General: cooperative and comfortable Nutritional Appearance: obese Orientation: alert, awake and oriented x3 [facility] Head: normal to inspection, normocephalic and atraumatic Face and sinus: other (left sided facial droop) Mouth: oral mucosae normal Resp Effort & Inspection: normal respiratory effort Auscultation: clear to auscultation bilaterally Cardio Rate: regular rate Rhythm: regular rhythm GI Inspection: normal to inspection and obesity Palpation: soft Auscultation: normal bowel sounds General: other (sotelo draining blood tinged urine) Skin General skin exam: no rashes or lesions noted (chronic venous stasis changes to bilateral lower extremities) Neuro General: patient alert, patient awake, patient oriented x3 and moves all extremities (left sided weakness) Cognition: normal cognition Speech: abnormal speech slurred Motor: strength 5/5 throughout (4/4 on left. ) Extrem General: normal to inspection and edema (trace) Laterality: bilateral Objective Objective Clinical Data: Vital Signs Temperature 37 C 09/05/19 08:07 Temperature Source Tympanic 09/05/19 08:07 Pulse 69 09/05/19 08:07 Pulse Rhythm Regular 09/05/19 07:25 Pulse 85 09/03/19 16:10 Respiratory Rate 18 09/05/19 08:07 Respiratory Effort Labored 09/05/19 07:25 Respiratory Depth Normal 09/05/19 07:25 Respiratory Pattern Normal 09/05/19 07:25 Blood Pressure 158/98 H 09/05/19 08:07 Blood Pressure Mean 104 09/03/19 16:01 Blood Pressure Position Supine 09/03/19 08:11 Pulse Oximetry 96 09/05/19 08:07 Oxygen Delivery Method Room Air 09/05/19 08:07 Oxygen Flow Rate 0 09/05/19 08:07 Fraction of Inspired Oxygen (FIO2) 21 09/05/19 12:58 Pain Level 0 09/05/19 11:58 Comment 09/05/19 11:58 Intake & Output 09/04/19 09/05/19 09/05/19 23:59 11:59 23:59 Intake Total 340 / 340 480 / 720 240 / 720 Output Total 740 / 1490 1025 / 1225 200 / 1225 Balance -400 / -1150 -545 / -505 40 / -505 Weight 127 kg Intake: IV 100 / 100 Oral 240 / 240 480 / 720 240 / 720 Output: Urine 740 / 1490 1025 / 1225 200 / 1225 Other: Urine Color [employer] [place] [employer] [place] Dark Red Urine Appearance Hematuria Hematuria Clear Clots Hematuria Urine Odor Strong Comment Void x1 in the toilet. Stool Size Moderate Stool Characteristics Soft Formed Voiding Methods Toilet Laboratory Results WBC 8.37 k/cumm (4.4-10.8) 09/04/19 06:28 RBC 4.27 m/cumm (4.50-6.00) L 09/04/19 06:28 Hgb 12.4 g/dL (13.5-17.5) L 09/04/19 06:28 Hct 37.4 % (40.0-50.0) L 09/04/19 06: MCV 87.6 fL (80-95) 09/04/19 06: MCH 29.0 pg (27.0-33.0) 09/04/19 06: MCHC 33.2 g/dL (32.0-36.0) 09/04/19 06: RDW 14.6 % (11.8-14.1) H 09/04/19 06:28 Plt Count 295 x1000/uL (130-400) 09/04/19 06:28 MPV 9.8 fL (8.0-11.0) 09/04/19 06: Immature Gran % 0.1 % 09/04/19 06: Neutrophils % 67.8 09/04/19 06:28 Lymphocytes % 21.9 09/04/19 06:28 Monocytes % 6.3 09/04/19 06:28 Eosinophils % 3.3 09/04/19 06: Basophils % 0.6 09/04/19 06:28 Absolute Neutrophils 5.67 k/cumm (1.2-6.7) 09/04/19 06:28 Absolute Lymphocytes 1.83 k/cumm (1.2-3.4) 09/04/19 06:28 Absolute Monocytes 0.53 k/cumm (0.11-0.7) 09/04/19 06: Absolute Eosinophils 0.28 k/cumm (0.0-0.7) 09/04/19 06: Absolute Basophils 0.05 k/cumm (0.0-0.2) 09/04/19 06:28 PT 10.8 sec (9.3-11.0) 09/03/19 08:12 INR 1.1 (0.9-1.1) 09/03/19 08:12 APTT 25.3 sec (21.0-31.4) 09/03/19 08:12 Sodium 141 mmol/L (136-145) 09/04/19 06:28 Potassium 3.2 mmol/L (3.5-5.1) L 09/04/19 06:28 Chloride 104 mmol/L (98-107) 09/04/19 06:28 Carbon Dioxide 30.7 mmol/L (21.0-32.0) 09/04/19 06:28 Anion Gap 6.3 mmol/L (3-11) 09/04/19 06:28 BUN 10 mg/dL (7-18) 09/04/19 06:28 Creatinine 1.01 mg/dL (0.70-1.30) 09/04/19 06:28 Estimated GFR/1.73 m2 >= 60.00 (mL/min/1.73m2) 09/04/19 06:28 Glucose 98 mg/dL (74-106) D 09/04/19 06:28 Hemoglobin A1c 11.0 % (3.8-5.6) H 09/03/19 06:28 Calcium 8.9 mg/dL (8.5-10.1) 09/04/19 06:28 Magnesium 1.9 mg/dL (1.8-2.4) 09/04/19 06:28 Total Bilirubin 1.6 mg/dL (0.2-1.0) H 09/03/19 08:12 AST 29 U/L (15-37) 09/03/19 08:12 ALT 23 U/L (16-63) 09/03/19 08:12 Alkaline Phosphatase 96 U/L (46-116) 09/03/19 08:12 Creatine Kinase 247 U/L (39-308) 09/03/19 08:12 Troponin I < 0.05 ng/mL (<0.06) 09/04/19 06:28 NT-Pro-B Natriuret Pep 5983 pg/mL (<300) H 09/03/19 08:12 Total Protein 6.9 g/dL (6.4-8.2) 09/03/19 08:12 Albumin 2.8 g/dL (3.4-5.0) L 09/03/19 08:12 Triglycerides 131 mg/dL (<150) 09/04/19 06:28 Total Cholesterol 155 mg/dL (<200) 09/04/19 06:28 LDL Cholesterol, Calc 81 mg/dL (<100) 09/04/19 06:28 HDL Cholesterol 48 mg/dL (40-60) 09/04/19 06:28 Vitamin B12 314 pg/mL (193-986) 09/04/19 06:28 TSH 5.32 uIU/mL (0.36-3.74) H 09/03/19 08:12 Urine Color Yellow (Yellow) 09/03/19 10:18 Urine Clarity Clear (Clear) 09/03/19 10:18 Urine pH 7.0 (5-8) 09/03/19 10:18 Ur Specific [place] 1.020 (1.005-1.025) 09/03/19 10:18 Urine Protein >=300 mg/dL (Negative) H 09/03/19 10:18 Urine Ketones Trace mg/dL (Negative) H 09/03/19 10:18 Urine Blood Small (Negative) H 09/03/19 10:18 Urine Nitrite Negative (Negative) 09/03/19 10:18 Urine Bilirubin Negative (Negative) 09/03/19 10:18 Urine Urobilinogen 0.2 EU/dL (Up TO 0.2) 09/03/19 10:18 Ur Leukocyte Esterase Negative (Negative) 09/03/19 10:18 Urine RBC 5-10 HPF (0-2) H 09/03/19 10:18 Urine WBC 0-2 HPF (0-5) 09/03/19 10:18 Ur Epithelial Cells Rare HPF (Negative) 09/03/19 10:18 Urine Crystals Negative HPF (Negative) 09/03/19 10:18 Urine Bacteria Negative HPF (Negative) 09/03/19 10:18 Urine Casts 0-2 coarse granular LPF (Negative) 09/03/19 10:18 Urine Mucus Negative (Negative) 09/03/19 10:18 Ur Culture Indicated? No 09/03/19 10:18 Urine Glucose 500 mg/dL (Negative) H 09/03/19 10:18 COVID-19 PCR Negative (Negative) 09/03/19 10:18 Nasopharyn COVID-19 PCR Not Applicable 09/03/19 10:18 Ref Test Perform Site [place] 09/03/19 10:18
--- NOTE | 2019-09-05 13:16 | DM INPTCON_ITS ---
Date of service: 09/05/19 Time of Service: 13:16 Diabetes Inpatient Consult DESCRIPTION/ASSESSMENT: Met with Sher today to provide Diabetes inpatient education. Sher was admitted with CVA, poorly controlled diabetes (A1C: 11% 09/02), left hemiparesis, weakness, morbid obesity with BMI>50. Following Diabetic Soft Bite Diet with excellent intake. Poor dentition but does not report issues with swallowing at this time. EDITOR MANAGING DIRECTOR consult pending. Reports that he used to cook for himself and has started to get meals on wheels as standing has been difficult for him. He reports checking his sugars now and again. Sher has inability to manage his diabetes on his own at this time and has impaired ability to prepare the necessary foods ideal for diabetes management due to weakness and food, nutrition and nutrition related defici. Estimated Needs: [id number] kcal, 80-90 g protein. Home Meds include: novolog SS. Met with Assistant Auto Center Manager that report after d/c from [facility] most likely will go to LTC. INTERVENTION: Attempted to educate Sher on diet principles for ideal blood sugar control. He had difficulty processing information and clearly has deficits in relation to knowledge about food and blood sugar interactions. Evident at this time, the he would be unable to care for self and insulin/blood sugar management. LTC and SNF is optimal at d/c. CDM from kitchen has been helping to count CHO's and achieve intake of ~65g/CHO per meal period. PLAN: Continue current meal plan, CDM will work with Sher daily to help teach carbohydrate counting. will monitor labs, weight and po intake Time Spent in Nutritional Counseling and Treatment: 20 min
[2019-09-05] MEDS: Gabapentin 400 MG CAP PO (22:05)
[2019-09-05] MEDS: rOPINIRole 1 MG TAB 2 MG PO (22:05)
[2019-09-05] MEDS: Mirtazapine 15 MG TAB PO (22:05)
[2019-09-05] MEDS: Atorvastatin 40 MG TAB 80 MG PO (22:05)
[2019-09-06] VITALS (7 sets, daily range): BP systolic 92–151; BP diastolic 50–86; PULSE 61–68; RESP 14–20; TEMP 35.3–36.7; O2SAT 92–100
[2019-09-06] MEDS: Heparin 5,000 UNITS/ML VIAL 5000 UNITS SC ×4 (00:27→23:57)
[2019-09-06] MEDS: Levothyroxine 175 MCG TAB PO (06:17)
[2019-09-06 06:40] LABS: HCT 32.2 % (40.0-50.0); HGB 10.4 g/dL (13.5-17.5); Mean Corp. HGB Concentration 32.3 g/dL (32.0-36.0); Mean Corpuscular Hemoglobin 28.9 pg (27.0-33.0); Mean Corpuscular Volume 89.4 fL (80-95); Mean Platelet Volume 9.4 fL (8.0-11.0); Platelet Count 254 x1000/uL (130-400)
[2019-09-06] MEDS: Budesonide/Formoterol 80/4.5 6.9 GM 60 PUFF INH IH ×2 (07:39→20:32)
--- NOTE | 2019-09-06 09:02 | CMPROGNOTE_ITS ---
- If Service Date Differs Date of service: 09/06/19 Time of Service: 09:02 Care Management Progress Note S/O:Sher remains acute at this time pending discharge on Sunday to health and rehab. He will need a cardiac event monitor, vs Zio patch pending coverage. CM will need to confirm the coverage on Sunday prior to discharge. A: Sher is a 69 year old man admitted to [facility] on 09/03/19 with a CVA P:Sher will likely be discharged to [facility]. He has tentatively been accepted for transfer on Sunday, pending the receipt of authorization from Sher's insurance company. He will director search marketing strategies placed prior to discharge pending approval. CM will continue to support Sher, his family and discharge planning needs.
[2019-09-06] MEDS: Magnesium Chloride 64 MG TABCR PO (09:06)
[2019-09-06] MEDS: Isosorbide Mononitrate 60 MG TABCR 120 MG PO (09:06)
[2019-09-06] MEDS: Omeprazole 20 MG CAPCR 40 MG PO (09:06)
[2019-09-06] MEDS: Cholecalciferol (Vitamin D3) 1,000 UNIT TAB 1000 UNITS PO (09:06)
[2019-09-06] MEDS: FLUoxetine 20 MG CAP PO (09:07)
[2019-09-06] MEDS: Aspirin E.C. 81 MG TABEC PO (09:07)
[2019-09-06] MEDS: Losartan 50 MG TAB 100 MG PO (09:07)
[2019-09-06] MEDS: Multivitamin TAB 1 TAB PO (09:07)
[2019-09-06] MEDS: Ezetimibe 10 MG TAB PO (09:07)
[2019-09-06] MEDS: Tamsulosin 0.4 MG CAPCR PO (09:07)
[2019-09-06] MEDS: Cyanocobalamin 500 MCG TAB 1000 MCG PO (09:07)
[2019-09-06] MEDS: Clopidogrel 75 MG TAB PO (09:07)
[2019-09-06] MEDS: Metoprolol CR 100 MG TABCR PO (09:07)
[2019-09-06] MEDS: Fluticasone NASAL SPRAY 16 GM BTL NS (09:08)
[2019-09-06 09:19] LABS: BUN 26 mg/dL (7-18); CREATININE 1.67 mg/dL (0.70-1.30); Calcium 8.7 mg/dL (8.5-10.1); Chloride 104 mmol/L (98-107); Estimated GFR 41.24 (mL/min/1.73m2); Glucose 59 mg/dL (74-106); Potassium 4.3 mmol/L (3.5-5.1); Sodium 139 mmol/L (136-145)
--- NOTE | 2019-09-06 10:50 | PGE_ITS ---
Date of Service Date of service: 09/06/19 Time of Service: 10:51 Assessment and Plan Assessment and plan (1) Right middle cerebral artery stroke: Start date: 09/06/19 Start time: 11:00 Status: Acute Assessment and plan: stable. neurology following. will continue asa 81 mg plus plavix daily, atorvastatin 80 mg at HS needs TTE and 30 day cardiac monitoring. Bed at H//r sunday, repeat covid. continue DIRECTOR COUNCIL [employer]ING/OT/PT (2) Poorly controlled diabetes mellitus: Start date: 09/06/19 Start time: 11:01 Status: Acute Assessment and plan: hemoglobin A1C is 11.0, which is actually improved from 13.7 in october blood sugars low overnight to a low of 57, will decrease basal insulin to 30 units bid, continue to closely monitor and adjust as needed. (3) Hypokalemia: Start date: 09/06/19 Start time: 11:01 Status: Resolved Assessment and plan: Resolved. Continue to monitor and replete as needed. (4) DVT prophylaxis: Start date: 09/06/19 Start time: 11:02 Status: Acute Assessment and plan: heparin sq (5) Essential hypertension: Start date: 09/06/19 Start time: 11:04 Status: Acute Assessment and plan: blood pressure stable, would allow for permissive hypertension (6) Discharge planning issues: Start date: 09/06/19 Start time: 11:04 Status: Acute Assessment and plan: H/R for rehab on possibly Sunday. case management following. referrals placed. case discussed with Dr Shi who is in agreement with plan Subjective Subjective Patient reports: other Interval history since last seen: Sleeping with CPAP on. No c/o pain, just feeling sleepy today. Tolerating diet. Exam Narrative Exam Narrative: General: Very sleepy male on cpap, awakes to name calling Neurological: PERRLA, not really answering questions at this time, Otherwise CN II-XII intact, Decreased sensation LUE/LLE. LUE stregth 4/5, LLE 4/5. RUE/RLE 5/5. Psychiatric: Appropriate speech pattern/content Skin: mild chronic venous stasis dermatitis HEENT: EOMI, MMM, clear oropharynx, tongue deviated to R, L facial droop, no submandibular or cervical lymphadenopathy, mild goiter, no JVD Cardiovascular: RRR, +quiet MARCY Lungs: CTAB Gastrointestinal: soft, nontender, nondistended Genitourinary: has a sotelo Extremities: no lesions on B feet, +1 pedal pules B Objective Objective Clinical Data: Abnormal lab results 09/06/19 09/06/19 Range/Units 06:30 06:30 RBC 3.60 L (4.50-6.00) m/cumm Hgb 10.4 L (13.5-17.5) g/dL Hct 32.2 L (40.0-50.0) % RDW 15.0 H (11.8-14.1) % BUN 26 H D (7-18) mg/dL Creatinine 1.67 H (0.70-1.30) mg/dL Glucose 59 L (74-106) mg/dL Vital Signs Temperature 35.3 C L 09/06/19 08:00 Temperature Source Tympanic 09/06/19 08:00 Pulse 63 09/06/19 08:00 Pulse Rhythm Regular 09/06/19 04:05 Pulse 85 09/03/19 16:10 Respiratory Rate 14 09/06/19 08:00 Respiratory Effort Non-Labored 09/06/19 04:05 Respiratory Depth Normal 09/06/19 04:05 Respiratory Pattern Normal 09/06/19 04:05 Blood Pressure 134/77 09/06/19 08:00 Blood Pressure Mean 104 09/03/19 16:01 Blood Pressure Position Supine 09/03/19 08:11 Pulse Oximetry 94 L 09/06/19 08:00 Oxygen Delivery Method Room Air 09/06/19 08:00 Oxygen Flow Rate 0 09/06/19 08:00 Fraction of Inspired Oxygen (FIO2) 21 09/05/19 13:19 Pain Level 0 09/05/19 23:56 Comment 09/06/19 03:10 Intake & Output 09/05/19 09/05/19 09/06/19 11:59 23:59 11:59 Intake Total 480 / 960 480 / 960 300 / 300 Output Total 1025 / 1725 700 / 1725 800 / 800 Balance -545 / -765 -220 / -765 -500 / -500 Weight 127 kg 135.2 kg Intake: Oral 480 / 960 480 / 960 300 / 300 Output: Urine 1025 / 1725 700 / 1725 800 / 800 Other: Urine Color [employer] Straw [place] [employer] Dark Red Urine Appearance Hematuria Clear Clear Urine Odor Strong Strong Comment Void x1 in the toilet. Void x1 in the toilet. Voiding Methods Toilet Toilet Laboratory Results WBC 8.10 k/cumm (4.4-10.8) 09/06/19 06:30 RBC 3.60 m/cumm (4.50-6.00) L 09/06/19 06:30 Hgb 10.4 g/dL (13.5-17.5) L 09/06/19 06:30 Hct 32.2 % (40.0-50.0) L 09/06/19 06:30 MCV 89.4 fL (80-95) 09/06/19 06:30 MCH 28.9 pg (27.0-33.0) 09/06/19 06:30 MCHC 32.3 g/dL (32.0-36.0) 09/06/19 06:30 RDW 15.0 % (11.8-14.1) H 09/06/19 06:30 Plt Count 254 x1000/uL (130-400) 09/06/19 06:30 MPV 9.4 fL (8.0-11.0) 09/06/19 06:30 Immature Gran % 0.1 % 09/04/19 06:28 Neutrophils % 67.8 09/04/19 06:28 Lymphocytes % 21.9 09/04/19 06:28 Monocytes % 6.3 09/04/19 06:28 Eosinophils % 3.3 09/04/19 06:28 Basophils % 0.6 09/04/19 06:28 Absolute Neutrophils 5.67 k/cumm (1.2-6.7) 09/04/19 06:28 Absolute Lymphocytes 1.83 k/cumm (1.2-3.4) 09/04/19 06:28 Absolute Monocytes 0.53 k/cumm (0.11-0.7) 09/04/19 06:28 Absolute Eosinophils 0.28 k/cumm (0.0-0.7) 09/04/19 06:28 Absolute Basophils 0.05 k/cumm (0.0-0.2) 09/04/19 06:28 PT 10.8 sec (9.3-11.0) 09/03/19 08:12 INR 1.1 (0.9-1.1) 09/03/19 08:12 APTT 25.3 sec (21.0-31.4) 09/03/19 08:12 Sodium 139 mmol/L (136-145) 09/06/19 06:30 Potassium 4.3 mmol/L (3.5-5.1) D 09/06/19 06:30 Chloride 104 mmol/L (98-107) 09/06/19 06:30 Carbon Dioxide 30.0 mmol/L (21.0-32.0) 09/06/19 06:30 Anion Gap 5.0 mmol/L (3-11) 09/06/19 06:30 BUN 26 mg/dL (7-18) H D 09/06/19 06:30 Creatinine 1.67 mg/dL (0.70-1.30) H 09/06/19 06:30 Estimated GFR/1.73 m2 41.24 (mL/min/1.73m2) 09/06/19 06:30 Glucose 59 mg/dL (74-106) L 09/06/19 06:30 Hemoglobin A1c 11.0 % (3.8-5.6) H 09/03/19 06:28 Calcium 8.7 mg/dL (8.5-10.1) 09/06/19 06:30 Magnesium 2.0 mg/dL (1.8-2.4) 09/06/19 06:30 Total Bilirubin 1.6 mg/dL (0.2-1.0) H 09/03/19 08:12 AST 29 U/L (15-37) 09/03/19 08:12 ALT 23 U/L (16-63) 09/03/19 08:12 Alkaline Phosphatase 96 U/L (46-116) 09/03/19 08:12 Creatine Kinase 247 U/L (39-308) 09/03/19 08:12 Troponin I < 0.05 ng/mL (<0.06) 09/04/19 06:28 NT-Pro-B Natriuret Pep 5983 pg/mL (<300) H 09/03/19 08:12 Total Protein 6.9 g/dL (6.4-8.2) 09/03/19 08:12 Albumin 2.8 g/dL (3.4-5.0) L 09/03/19 08:12 Triglycerides 131 mg/dL (<150) 09/04/19 06:28 Total Cholesterol 155 mg/dL (<200) 09/04/19 06:28 LDL Cholesterol, Calc 81 mg/dL (<100) 09/04/19 06:28 HDL Cholesterol 48 mg/dL (40-60) 09/04/19 06:28 Vitamin B12 314 pg/mL (193-986) 09/04/19 06:28 TSH 5.32 uIU/mL (0.36-3.74) H 09/03/19 08:12 Urine Color Yellow (Yellow) 09/03/19 10:18 Urine Clarity Clear (Clear) 09/03/19 10:18 Urine pH 7.0 (5-8) 09/03/19 10:18 Ur Specific [place] 1.020 (1.005-1.025) 09/03/19 10:18 Urine Protein >=300 mg/dL (Negative) H 09/03/19 10:18 Urine Ketones Trace mg/dL (Negative) H 09/03/19 10:18 Urine Blood Small (Negative) H 09/03/19 10:18 Urine Nitrite Negative (Negative) 09/03/19 10:18 Urine Bilirubin Negative (Negative) 09/03/19 10:18 Urine Urobilinogen 0.2 EU/dL (Up TO 0.2) 09/03/19 10:18 Ur Leukocyte Esterase Negative (Negative) 09/03/19 10:18 Urine RBC 5-10 HPF (0-2) H 09/03/19 10:18 Urine WBC 0-2 HPF (0-5) 09/03/19 10:18 Ur Epithelial Cells Rare HPF (Negative) 09/03/19 10:18 Urine Crystals Negative HPF (Negative) 09/03/19 10:18 Urine Bacteria Negative HPF (Negative) 09/03/19 10:18 Urine Casts 0-2 coarse granular LPF (Negative) 09/03/19 10:18 Urine Mucus Negative (Negative) 09/03/19 10:18 Ur Culture Indicated? No 09/03/19 10:18 Urine Glucose 500 mg/dL (Negative) H 09/03/19 10:18 COVID-19 PCR Negative (Negative) 09/03/19 10:18 Alivia COVID-19 PCR Not Applicable 09/03/19 10:18 Ref Test Perform Site [facility] lab 09/03/19 10:18
--- NOTE | 2019-09-06 10:52 | PTTR_ITS ---
PT Notes Visit Reasons: ACUTE CVA Inpatient Physical Therapy Treatment Note [facility] Date: 09/06/2019 PRECAUTIONS: Fall, Standard, Activity As Tolerated SUBJECTIVE: Stated he had to use the toilet. Insisted on standing at toilet. Too weak to continue standing once finished urinating. OBJECTIVE: PAIN: No complaints of pain. Indicated he is unable to feel his left LE when attempting to perform ROM activities. BED MOBILITY/TRANSFERS Rolling L/R: To the left with assist of one. Supine-sit: Mod assist of 2 Sit-supine: Mod assist of 2 Sit-stand: Min assist of 2 Stand-sit: Min assist of 2 GAIT Assistive Device: FWW Weight bearing: FWB Assist: Mod assist of 2 Distance: 25ft to toilet, w/c back to bed THEREX: Performed ankle pumps bilaterally for 20 reps, supine SAQs, hip flexion with assist and hip abd/add with assist x 10 reps post rest after ambulation. Worked on sample maker original strength on left with hand squeezes x 10, Elbow flexion/ extension x 10 and Isometric shoulder extension x 10. ASSESSMENT: Had been up in chair 15 minutes earlier with nursing and had difficulty walking back to bed. Nursing also reported that Sher insisted on standing while using toilet to urinate earlier in the morning and became very weak as well. Feel it would be beneficial to try using urinal for urination standing at edge of bed for safety purposes in the future, until left LE is stronger. PLAN: Continue to work on increased ambulation and functional exercises with left UE / LE for improved ADL activity. Still very weak, will proceed as patient is able to tolerate. Patient feels he is able to do more than he is physically able to tolerate safely. TREATMENT CODE/TIME: MARSHAL ([id number])TP ([id number]), 09:10 to 10:15 (35')
[2019-09-06] MEDS: Insulin Aspart 300 UNITS/3 ML PEN 30 UNITS SC (16:54)
[2019-09-06] MEDS: Insulin Aspart 300 UNITS/3 ML PEN SC (16:54)
[2019-09-06] MEDS: Atorvastatin 40 MG TAB 80 MG PO (22:41)
[2019-09-06] MEDS: Gabapentin 400 MG CAP PO (22:41)
[2019-09-06] MEDS: rOPINIRole 1 MG TAB 2 MG PO (22:41)
[2019-09-06] MEDS: Mirtazapine 15 MG TAB PO (22:41)
[2019-09-07 03:45] VITALS: BP 109/74; PULSE 62; RESP 18; TEMP 36.7; O2SAT 98
[2019-09-07] MEDS: Levothyroxine 175 MCG TAB PO (06:49)
[2019-09-07 07:20] LABS: HCT 32.8 % (40.0-50.0); HGB 10.5 g/dL (13.5-17.5); Mean Corpuscular Hemoglobin 29.2 pg (27.0-33.0); Mean Corpuscular Volume 91.1 fL (80-95); Mean Platelet Volume 9.9 fL (8.0-11.0); Platelet Count 248 x1000/uL (130-400); RBC Distribution Width 15.1 % (11.8-14.1); White Blood Cell Count 7.42 k/cumm (4.4-10.8)
[2019-09-07 07:23] LABS: Anion Gap 6.1 mmol/L (3-11); BUN 31 mg/dL (7-18); CO2 27.9 mmol/L (21.0-32.0); CREATININE 1.73 mg/dL (0.70-1.30); Calcium 8.7 mg/dL (8.5-10.1); Chloride 104 mmol/L (98-107); Estimated GFR 39.59 (mL/min/1.73m2); Glucose 110 mg/dL (74-106); Potassium 4.8 mmol/L (3.5-5.1); Sodium 138 mmol/L (136-145)
[2019-09-07 07:37] VITALS: BP 130/81; PULSE 64; RESP 19; TEMP 36.9; O2SAT 98
[2019-09-07] MEDS: Budesonide/Formoterol 80/4.5 6.9 GM 60 PUFF INH IH ×2 (07:44→19:33)
[2019-09-07 08:23] LABS: Iron 43 ug/dL (65-175); Total Iron Binding Capacity 218 ug/dL (250-450); Transferrin Sat 20 % (20-55)
[2019-09-07 08:50] LABS: Ferritin 213 ng/mL (26-388); Folate 14.7 ng/mL (8.6-20.0); Vitamin B12 409 pg/mL (193-986)
[2019-09-07] MEDS: Cyanocobalamin 500 MCG TAB 1000 MCG PO (08:52)
[2019-09-07] MEDS: FLUoxetine 20 MG CAP PO (08:52)
[2019-09-07] MEDS: Polyethylene Glycol 3350 17 GM PACKET PO (08:52)
[2019-09-07] MEDS: Fluticasone NASAL SPRAY 16 GM BTL NS (08:52)
[2019-09-07] MEDS: Aspirin E.C. 81 MG TABEC PO (08:53)
[2019-09-07] MEDS: Omeprazole 20 MG CAPCR 40 MG PO (08:53)
[2019-09-07] MEDS: Tamsulosin 0.4 MG CAPCR PO (08:53)
[2019-09-07] MEDS: Metoprolol CR 100 MG TABCR PO (08:53)
[2019-09-07] MEDS: Cholecalciferol (Vitamin D3) 1,000 UNIT TAB 1000 UNITS PO (08:53)
[2019-09-07] MEDS: Multivitamin TAB 1 TAB PO (08:53)
[2019-09-07] MEDS: Ezetimibe 10 MG TAB PO (08:53)
[2019-09-07] MEDS: Clopidogrel 75 MG TAB PO (08:53)
[2019-09-07] MEDS: Isosorbide Mononitrate 60 MG TABCR 120 MG PO (08:53)
[2019-09-07] MEDS: Losartan 50 MG TAB 100 MG PO (08:53)
[2019-09-07] MEDS: Magnesium Chloride 64 MG TABCR PO (08:53)
[2019-09-07] MEDS: Ferrous Sulfate 325 MG TAB PO ×2 (09:13→19:33)
--- NOTE | 2019-09-07 09:26 | PDOC.CMPRO ---
- If Service Date Differs Date of service: 09/07/19 Time of Service: 09:26 Care Management Progress Note S/O:Sher remains acute at this time pending discharge on Sunday to [facility]. He will need a cardiac event monitor, vs Zio patch pending coverage. CM will need to confirm the coverage on Sunday prior to discharge. His HGB is trending down he will have anemia studies and stool checks to rule out occult bleeding. His glucose is improving with the adjustment of his insulin. Anticipate he will be ready for discharge on Sunday. A: Sher is a 69 year old man admitted to [facility] on 09/03/19 with a CVA P:Sher will likely be discharged to [facility]. He has tentatively been accepted for transfer on Sunday, pending the receipt of authorization from Sher's insurance company. He will radiation monitor placed prior to discharge pending approval. CM will continue to support Sher, his family and discharge planning needs.
[2019-09-07] MEDS: Normal Saline 1,000 ML 100 ML IV ×2 (10:06→20:10)
[2019-09-07] MEDS: Normal Saline Flush 10 ML SYR IVP (10:06)
--- NOTE | 2019-09-07 10:38 | PGE_ITS ---
Date of Service Date of service: 09/07/19 Time of Service: 10:38 Assessment and Plan Assessment and plan (1) Right middle cerebral artery stroke: Start date: 09/07/19 Status: Acute Assessment and plan: stable. neurology following. will continue asa 81 mg plus plavix daily, atorvastatin 80 mg at HS needs TTE and 30 day cardiac monitoring. Bed at H//r sunday, repeat covid. 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 (4) DVT prophylaxis: Start date: 09/07/19 Start time: 10:54 Status: Acute Assessment and plan: hold heparin due to hematuria and possible eli tochezia (5) Essential hypertension: Start date: 09/07/19 Start time: 10:57 Status: Acute Assessment and plan: blood pressure stable, would allow for permissive hypertension, bp variable however normotensive (6) Anemia: Start date: 09/07/19 Start time: 10:58 Status: Chronic Assessment and plan: Hemoglobin trending down, anemia studies done, iron low, TIBC low, b 12 within range, folate within range. Add iron and vitamin c to regimen. Will check stools. Hold heparin. (7) Discharge planning issues: Start date: 09/07/19 Start time: 10:58 Status: Acute Assessment and plan: H/R for rehab on possibly Sunday. case management following. referrals placed. case discussed with Dr Shi who is in agreement with plan Subjective Subjective Patient reports: no new complaints Interval history since last seen: more awake though continues to be sleepy, present states this is normal for him, he does this at home. Hemoglobin steadily dropping. anemia study done iron and TIBC low. Started on iron with vitamin c. Will test stools as well for blood. hold heparin for now as patient has been cardona ving hematuria. He denies CP, SOB, N/V/D Exam Narrative Exam Narrative: General: sleepy male on cpap, awakes to name calling Neurological: PERRLA, answering questions without difficulty, Otherwise CN II- XII intact, Decreased sensation LUE/LLE. LUE inability to lift, LLE inablility to lift. able to move toes RUE/RLE 5/5. Psychiatric: Appropriate speech pattern/content Skin: mild chronic venous stasis dermatitis HEENT: EOMI, MMM, clear oropharynx, tongue deviated to R, L facial droop, no sub mandibular or cervical lymphadenopathy, mild goiter, no JVD Cardiovascular: RRR, +quiet MARCY Lungs: CTAB Gastrointestinal: soft, nontender, nondistended Genitourinary: has a sotelo Extremities: no lesions on B feet, +1 pedal pules B Objective Objective Clinical Data: Abnormal lab results 09/07/19 09/07/19 09/07/19 Range/Units 06:45 06:45 06:45 RBC 3.60 L (4.50-6.00) m/cumm Hgb 10.5 L (13.5-17.5) g/dL Hct 32.8 L (40.0-50.0) % RDW 15.1 H (11.8-14.1) % BUN 31 H (7-18) mg/dL Creatinine 1.73 H (0.70-1.30) mg/dL Glucose 110 H D (74-106) mg/dL Iron 43 L (65-175) ug/dL TIBC 218 L (250-450) ug/dL Vital Signs Temperature 36.9 C 09/07/19 07:37 Temperature Source Temporal Artery Scan 09/07/19 07:37 Pulse 64 09/07/19 07:37 Pulse Rhythm Regular 09/07/19 03:48 Pulse 85 09/03/19 16:10 Respiratory Rate 19 09/07/19 07:37 Respiratory Effort Non-Labored 09/07/19 03:48 Respiratory Depth Normal 09/07/19 03:48 Respiratory Pattern Normal 09/07/19 03:48 Blood Pressure 130/81 09/07/19 07:37 Blood Pressure Mean 104 09/03/19 16:01 Blood Pressure Position Supine 09/03/19 08:11 Pulse Oximetry 98 09/07/19 07:37 Oxygen Delivery Method Room Air 09/07/19 07:37 Oxygen Flow Rate 0 09/07/19 07:37 Fraction of Inspired Oxygen (FIO2) 21 09/05/19 13:19 Pain Level 0 09/07/19 07:37 Comment 09/06/19 15:13 Intake & Output 09/06/19 09/06/19 09/07/19 11:59 23:59 11:59 Intake Total 1090 / 1570 480 / 1570 Output Total 800 / 2000 1200 / 2000 450 / 450 Balance 290 / -430 -720 / -430 -450 / -450 Weight 135.2 kg Intake: Oral 1090 / 1570 480 / 1570 Output: Urine / 1999 1200 / 2000 450 / 450 Other: Urine Color Straw Yellow Yellow [place] Urine Appearance Clear Clear Clear Urine Odor Strong Normal Strong Comment Void x1 in the toilet. Void x1 in the urinal. Voiding Methods Toilet Urinal Urinal Laboratory Results WBC 7.42 k/cumm (4.4-10.8) 09/07/19 06:45 RBC 3.60 m/cumm (4.50-6.00) L 09/07/19 06:45 Hgb 10.5 g/dL (13.5-17.5) L 09/07/19 06:45 Hct 32.8 % (40.0-50.0) L 09/07/19 06:45 MCV 91.1 fL (80-95) 09/07/19 06:45 MCH 29.2 pg (27.0-33.0) 09/07/19 06:45 MCHC 32.0 g/dL (32.0-36.0) 09/07/19 06:45 RDW 15.1 % (11.8-14.1) H 09/07/19 06:45 Plt Count 248 x1000/uL (130-400) 09/07/19 06:45 MPV 9.9 fL (8.0-11.0) 09/07/19 06:45 Immature Gran % 0.1 % 09/04/19 06:28 Neutrophils % 67.8 09/04/19 06:28 Lymphocytes % 21.9 09/04/19 06:28 Monocytes % 6.3 09/04/19 06:28 Eosinophils % 3.3 09/04/19 06:28 Basophils % 0.6 09/04/19 06:28 Absolute Neutrophils 5.67 k/cumm (1.2-6.7) 09/04/19 06:28 Absolute Lymphocytes 1.83 k/cumm (1.2-3.4) 09/04/19 06:28 Absolute Monocytes 0.53 k/cumm (0.11-0.7) 09/04/19 06:28 Absolute Eosinophils 0.28 k/cumm (0.0-0.7) 09/04/19 06:28 Absolute Basophils 0.05 k/cumm (0.0-0.2) 09/04/19 06:28 PT 10.8 sec (9.3-11.0) 09/03/19 08:12 INR 1.1 (0.9-1.1) 09/03/19 08:12 APTT 25.3 sec (21.0-31.4) 09/03/19 08:12 Sodium 138 mmol/L (136-145) 09/07/19 06:45 Potassium 4.8 mmol/L (3.5-5.1) 09/07/19 06:45 Chloride 104 mmol/L (98-107) 09/07/19 06:45 Carbon Dioxide 27.9 mmol/L (21.0-32.0) 09/07/19 06:45 Anion Gap 6.1 mmol/L (3-11) 09/07/19 06:45 BUN 31 mg/dL (7-18) H 09/07/19 06:45 Creatinine 1.73 mg/dL (0.70-1.30) H 09/07/19 06:45 Estimated GFR/1.73 m2 39.59 (mL/min/1.73m2) 09/07/19 06:45 Glucose 110 mg/dL (74-106) H D 09/07/19 06:45 Hemoglobin A1c 11.0 % (3.8-5.6) H 09/03/19 06:28 Calcium 8.7 mg/dL (8.5-10.1) 09/07/19 06:45 Magnesium 2.0 mg/dL (1.8-2.4) 09/06/19 06:30 Iron 43 ug/dL (65-175) L 09/07/19 06:45 TIBC 218 ug/dL (250-450) L 09/07/19 06:45 Transferrin % Sat 20 % (20-55) 09/07/19 06:45 Ferritin 213 ng/mL (26-388) 09/07/19 06:45 Total Bilirubin 1.6 mg/dL (0.2-1.0) H 09/03/19 08:12 AST 29 U/L (15-37) 09/03/19 08:12 ALT 23 U/L (16-63) 09/03/19 08:12 Alkaline Phosphatase 96 U/L (46-116) 09/03/19 08:12 Creatine Kinase 247 U/L (39-308) 09/03/19 08:12 Troponin I < 0.05 ng/mL (<0.06) 09/04/19 06:28 NT-Pro-B Natriuret Pep 5983 pg/mL (<300) H 09/03/19 08:12 Total Protein 6.9 g/dL (6.4-8.2) 09/03/19 08:12 Albumin 2.8 g/dL (3.4-5.0) L 09/03/19 08:12 Triglycerides 131 mg/dL (<150) 09/04/19 06:28 Total Cholesterol 155 mg/dL (<200) 09/04/19 06:28 LDL Cholesterol, Calc 81 mg/dL (<100) 09/04/19 06:28 HDL Cholesterol 48 mg/dL (40-60) 09/04/19 06:28 Vitamin B12 409 pg/mL (193-986) 09/07/19 06:45 Folate 14.7 ng/mL (8.6-20.0) 09/07/19 06:45 TSH 5.32 uIU/mL (0.36-3.74) H 09/03/19 08:12 Urine Color Yellow (Yellow) 09/03/19 10:18 Urine Clarity Clear (Clear) 09/03/19 10:18 Urine pH 7.0 (5-8) 09/03/19 10:18 Ur Specific [place] 1.020 (1.005-1.025) 09/03/19 10:18 Urine Protein >=300 mg/dL (Negative) H 09/03/19 10:18 Urine Ketones Trace mg/dL (Negative) H 09/03/19 10:18 Urine Blood Small (Negative) H 09/03/19 10:18 Urine Nitrite Negative (Negative) 09/03/19 10:18 Urine Bilirubin Negative (Negative) 09/03/19 10:18 Urine Urobilinogen 0.2 EU/dL (Up TO 0.2) 09/03/19 10:18 Ur Leukocyte Esterase Negative (Negative) 09/03/19 10:18 Urine RBC 5-10 HPF (0-2) H 09/03/19 10:18 Urine WBC 0-2 HPF (0-5) 09/03/19 10:18 Ur Epithelial Cells Rare HPF (Negative) 09/03/19 10:18 Urine Crystals Negative HPF (Negative) 09/03/19 10:18 Urine Bacteria Negative HPF (Negative) 09/03/19 10:18 Urine Casts 0-2 coarse granular LPF (Negative) 09/03/19 10:18 Urine Mucus Negative (Negative) 09/03/19 10:18 Ur Culture Indicated? No 09/03/19 10:18 Urine Glucose 500 mg/dL (Negative) H 09/03/19 10:18 COVID-19 PCR Cancelled 09/06/19 10:33 Nasopharyn COVID-19 PCR Cancelled 09/06/19 10:33 Ref Test Perform Site Cancelled 09/06/19 10:33
[2019-09-07] MEDS: Ascorbic Acid 500 MG TAB PO (11:06)
[2019-09-07 11:40] VITALS: BP 128/85; PULSE 61; RESP 19; TEMP 36.5; O2SAT 98
--- NOTE | 2019-09-07 12:39 | PT.INTREAT ---
PT Notes Visit Reasons: ACUTE CVA 09/07/2019 Held on ambulation today due to nursing staff indicating that patient was very weak and tired today. Spoke with patient regarding bed exercises and he requested to hold for today, just to tired.
[2019-09-07] MEDS: Insulin Aspart 300 UNITS/3 ML PEN 30 UNITS SC (13:14)
[2019-09-07] MEDS: Insulin Aspart 300 UNITS/3 ML PEN SC (13:14)
[2019-09-07 15:20] LABS: COVID-19 RT-PCR Result Not Detected ((See Note))
[2019-09-07 15:27] VITALS: BP 126/72; PULSE 61; RESP 20; TEMP 36.6; O2SAT 96
[2019-09-07 20:02] VITALS: BP 115/67; PULSE 60; RESP 20; TEMP 36.7; O2SAT 98
[2019-09-07] MEDS: Atorvastatin 40 MG TAB 80 MG PO (21:58)
[2019-09-07] MEDS: rOPINIRole 1 MG TAB 2 MG PO (21:59)
[2019-09-07] MEDS: Gabapentin 400 MG CAP PO (21:59)
[2019-09-07] MEDS: Mirtazapine 15 MG TAB PO (21:59)
[2019-09-07 23:32] VITALS: BP 114/68; PULSE 61; RESP 17; TEMP 36.6; O2SAT 96
[2019-09-08] VITALS (7 sets, daily range): BP systolic 113–154; BP diastolic 62–90; PULSE 60–69; RESP 18–20; TEMP 35.7–36.8; O2SAT 94–99
--- NOTE | 2019-09-08 | DI.US_ITS ---
EXAM: US RENAL CLINICAL HISTORY: question hydronephrosis. TECHNIQUE: Castellanos scale, color and spectral Doppler were used. COMPARISON: CT CT ABDOMEN PELVIS W from 12/28/2018 ECG EKG from 07/11/2019 FINDINGS: Exam is limited due to patient body habitus. Renal size in cm: Right: 10.5 left: 11.7 Echogenicity: Normal. Hydronephrosis: No. Cyst or mass: No. Nephrolithiasis: 1.2 cm echogenic focus in the midpole of the right kidney. This may represent a non obstructing stone or vascular calcification. Other findings: None. Bladder:Normal. Ureteral jets: Right: Visualized and unremarkable. Left: Visualized and unremarkable. Prevoid vol:310 cc Postvoid vol:Not obtained. Cc Prostate: Not visualized sonographically. Cc DOPPLER FINDINGS: Normal and symmetric blood flow to the kidneys. IMPRESSION: 1. Examination limited by patient body habitus. 2. Echogenic focus in the midpole of the right kidney. This may represent a nonobstructing stone or vascular calcification. DATA REPOSITORY:
[2019-09-08] MEDS: Normal Saline 1,000 ML 100 ML IV ×2 (05:32→20:02)
[2019-09-08] MEDS: Levothyroxine 175 MCG TAB PO (06:12)
[2019-09-08 07:02] LABS: Anion Gap 7.1 mmol/L (3-11); BUN 32 mg/dL (7-18); CO2 26.9 mmol/L (21.0-32.0); CREATININE 1.83 mg/dL (0.70-1.30); Chloride 105 mmol/L (98-107); Estimated GFR 37.11 (mL/min/1.73m2); Glucose 103 mg/dL (74-106); Potassium 4.6 mmol/L (3.5-5.1); Sodium 139 mmol/L (136-145)
[2019-09-08] MEDS: Budesonide/Formoterol 80/4.5 6.9 GM 60 PUFF INH IH ×2 (07:56→20:00)
[2019-09-08] MEDS: Fluticasone NASAL SPRAY 16 GM BTL NS (08:00)
[2019-09-08] MEDS: FLUoxetine 20 MG CAP PO (08:01)
[2019-09-08] MEDS: Cyanocobalamin 500 MCG TAB 1000 MCG PO (08:01)
[2019-09-08] MEDS: Ascorbic Acid 500 MG TAB PO (08:01)
[2019-09-08] MEDS: Ezetimibe 10 MG TAB PO (08:01)
[2019-09-08] MEDS: Clopidogrel 75 MG TAB PO (08:01)
[2019-09-08] MEDS: Magnesium Chloride 64 MG TABCR PO (08:02)
[2019-09-08] MEDS: Aspirin E.C. 81 MG TABEC PO (08:02)
[2019-09-08] MEDS: Cholecalciferol (Vitamin D3) 1,000 UNIT TAB 1000 UNITS PO (08:02)
[2019-09-08] MEDS: Ferrous Sulfate 325 MG TAB PO ×2 (08:02→20:00)
[2019-09-08] MEDS: Multivitamin TAB 1 TAB PO (08:02)
[2019-09-08] MEDS: Losartan 50 MG TAB 100 MG PO (08:02)
[2019-09-08] MEDS: Omeprazole 20 MG CAPCR 40 MG PO (08:03)
[2019-09-08] MEDS: Isosorbide Mononitrate 60 MG TABCR 120 MG PO (08:03)
[2019-09-08] MEDS: Tamsulosin 0.4 MG CAPCR PO (08:03)
[2019-09-08] MEDS: Metoprolol CR 100 MG TABCR PO (08:03)
[2019-09-08] MEDS: Polyethylene Glycol 3350 17 GM PACKET PO (08:04)
--- NOTE | 2019-09-08 08:09 | OT.INTREAT ---
Date of service: 09/08/19 Time of Service: 07:17 Occupational Therapy Notes Occupational Therapy Inpatient Treatment Note Date: 09/08/19 PRECAUTIONS: Fall, Standard, DNI SUBJECTIVE: Pt sitting in chair when OT arrived. He was agreeable to OT session and notes that he is fatigued and that his arm feels . OBJECTIVE: PAIN: c/o numbness throughout his body and feeling in (L) UE BATHING: Sitting in chair with max (A) set up/clean up Upper Body: (I) washing face, mod (A) washing (B) UE with min vc, pt was demonstrating fatigue. DRESSING: Upper Extremity: Mod (A) don and doffing hospital gown able to perform AROM to (L) UE for arm into hospital gown with min vc. ASSESSMENT/ PLAN: Pt is presenting with significant decreased functional activity tolerance. (L) hand presents with remarkable edema present and he states that he is getting a heavy feeling in it. OT again emphasizes the importance of performing ROM and to use (L) UE as much as possible. Pt has decreased functional activity tolerance. TREATMENT CODES/TIME: 09855, 20 minutes (07:17) Anne Marie Amato, OTR/L [facility]
[2019-09-08] MEDS: Insulin Aspart 300 UNITS/3 ML PEN 30 UNITS SC (08:15)
--- NOTE | 2019-09-08 09:58 | PTTR_ITS ---
Date of service: 09/08/19 Time of Service: 09:58 PT Notes Visit Reasons: ACUTE CVA Inpatient Physical Therapy Treatment Note [facility] Date: 09/08/2019 PRECAUTIONS: Fall. Standard. Activity As Tolerated. SUBJECTIVE: Report significant fatigue today compared to last Sunday during initial evaluation. Ports left leg being weak and left arm more difficult to move. OBJECTIVE: hogshead head matcher on. Bilateral TEDS. IV in R UE. Limon catheter in place. PAIN: None reported. BED MOBILITY/TRANSFERS Rolling L/R: Moderate assist of 2 Supine-sit: Mod assist of 2 Sit-supine: Mod assist of 2 Sit-stand: Min assist of 2 Stand-sit: Min assist of 2 GAIT Assistive Device: FWW Weight bearing: FWB Assist: Mod assist of 2 Distance: About 8 steps from bedside to BSC landing on her 8 steps back to bed. Increased pushing felt to the left side. Manual assist to left hand to stay on the left handle of walker. Reported considerable fatigue after transfer activity. ASSESSMENT: Sher demonstrates further decline in mobility ADL performance compared to date of initial evaluation. Quality Liaison on the left arm has further diminished. Ability to tolerate standing position has decreased. Sensation of stability in the left knee has become limited with patient confidence significantly reduced. Patient required significant encouragement to tolerate upright positioning during transfer activities. PLAN/discharge recommendations: Continue to work on increased ambulation and functional exercises with left UE / LE for improved ADL activity. Still very weak, will proceed as patient is able to tolerate. Patient feels he is able to do more than he is physically able to tolerate safely. Patient will benefit from half-way facility placement for continued skilled physical therapy services in order to progress mobility level, strength, and balance in preparation for a safe discharge to home. TREATMENT CODE/TIME: 43460 x 33 minutes beginning at 9:58 AM.
--- NOTE | 2019-09-08 10:26 | W.PM.PROGNOT ---
Date of Service Date of service: 09/08/19 Time of Service: 10: Assessment and Plan Assessment and plan (1) Right middle cerebral artery stroke: Start date: 09/08/19 Start time: 10: Status: Acute Assessment and plan: stable. neurology following. will continue asa 81 mg plus plavix daily, atorvastatin 80 mg at HS needs TTE and 30 day cardiac monitoring. Bed at H//r sunday, repeat covid. 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 (4) DVT prophylaxis: Start date: 09/08/19 Start time: 10: Status: Acute Assessment and plan: Hemtest negative. Awaiting cbc, restart heparin (5) Essential hypertension: Start date: 09/08/19 Start time: 10:30 Status: Acute Assessment and plan: blood pressure stable, would allow for permissive hypertension, bp variable however normotensive (6) Anemia: Start date: 09/08/19 Start time: 10:30 Status: Chronic Assessment and plan: Hemoglobin trending down, anemia studies done, iron low, TIBC low, b 12 within range, folate within range. Add iron and vitamin c to regimen. Stools negative for blood. (7) TIN (acute kidney injury): Start date: 09/08/19 Start time: 10:31 Status: Acute Assessment and plan: Creatinine trending up from 1.01 on 09/03 to 1.83 today. Gave IVF and creatinine increased will check PVR and renal u/s r/o hydronephrosis, possible discharge to rehab tomorrow. (8) Discharge planning issues: Status: Acute Assessment and plan: H/R for rehab on possibly tomorrow will evaluate overnight see above. case management following. referrals placed. case discussed with Dr Shi who is in agreement with plan Subjective Subjective Patient reports: no new complaints Interval history since last seen: more awake today. Answering questions appropriately, no c/o pain or any issues. Continues to have weakness to ROSA and LLE, with facial droop though he is able to lift extremities. Creatinine continues to rise. Will do PVR and renal u/s. Possible discharge in am. Exam Narrative Exam Narrative: General: sleepy male on cpap, awakes to name calling Neurological: PERRLA, answering questions without difficulty, Otherwise CN II-XII intact, Decreased sensation LUE/LLE. LUE 3/5, LLE 4/5 to lift. able to move toes RUE/RLE 5/5. Psychiatric: Appropriate speech pattern/content Skin: mild chronic venous stasis dermatitis HEENT: EOMI, MMM, clear oropharynx, tongue deviated to R, L facial droop, no submandibular or cervical lymphadenopathy, mild goiter, no JVD Cardiovascular: RRR, +quiet MARCY Lungs: CTAB Gastrointestinal: soft, nontender, nondistended Extremities: no lesions on B feet, +1 pedal pules B Objective Objective Clinical Data: Abnormal lab results 09/08/19 Range/Units 06:05 BUN 32 H (7-18) mg/dL Creatinine 1.83 H (0.70-1.30) mg/dL Vital Signs Temperature 35.9 C L 09/08/19 07:47 Temperature Source Tympanic 09/08/19 07:47 Pulse 60 09/08/19 07:47 Pulse Rhythm Regular 09/08/19 07:50 Pulse 85 09/03/19 16:10 Respiratory Rate 19 09/08/19 07:47 Respiratory Effort Non-Labored 09/08/19 07:50 Respiratory Depth Normal 09/08/19 07:50 Respiratory Pattern Normal 09/08/19 07:50 Blood Pressure 124/80 09/08/19 07:47 Blood Pressure Mean 104 09/03/19 16:01 Blood Pressure Position Supine 09/03/19 08:11 Pulse Oximetry 95 09/08/19 07:50 Oxygen Delivery Method Room Air 09/08/19 07:50 Oxygen Flow Rate 0 09/08/19 07:50 Fraction of Inspired Oxygen (FIO2) 21 09/05/19 13:19 Pain Level 0 09/08/19 07:47 Comment 09/07/19 17:43 Intake & Output 09/07/19 09/07/19 09/08/19 11:59 23:59 11:59 Intake Total 1259 1240 / 1260 1176.667 / 1176.667 Output Total 450 / 975 525 / 975 880 / 880 Balance -430 / 285 715 / 285 296.667 / 296.667 Weight 131 kg Intake: IV 1019 1000 / 1020 936.667 / 936.667 Oral 240 / 240 240 / 240 Output: Urine 450 / 975 525 / 975 880 / 880 Other: Urine Color Yellow Straw Yellow Urine Appearance Clear Clear Clear Urine Odor Strong Strong None Comment Void x1 in the urinal. Stool Occult Blood Negative Stool Size Large Stool Characteristics Formed Voiding Methods Urinal Urinal Toilet Laboratory Results WBC 7.42 k/cumm (4.4-10.8) 09/07/19 06:45 RBC 3.60 m/cumm (4.50-6.00) L 09/07/19 06:45 Hgb 10.5 g/dL (13.5-17.5) L 09/07/19 06:45 Hct 32.8 % (40.0-50.0) L 09/07/19 06:45 MCV 91.1 fL (80-95) 09/07/19 06:45 MCH 29.2 pg (27.0-33.0) 09/07/19 06:45 MCHC 32.0 g/dL (32.0-36.0) 09/07/19 06:45 RDW 15.1 % (11.8-14.1) H 09/07/19 06:45 Plt Count 248 x1000/uL (130-400) 09/07/19 06:45 MPV 9.9 fL (8.0-11.0) 09/07/19 06:45 Immature Gran % 0.1 % 09/04/19 06:28 Neutrophils % 67.8 09/04/19 06:28 Lymphocytes % 21.9 09/04/19 06:28 Monocytes % 6.3 09/04/19 06:28 Eosinophils % 3.3 09/04/19 06:28 Basophils % 0.6 09/04/19 06:28 Absolute Neutrophils 5.67 k/cumm (1.2-6.7) 09/04/19 06:28 Absolute Lymphocytes 1.83 k/cumm (1.2-3.4) 09/04/19 06:28 Absolute Monocytes 0.53 k/cumm (0.11-0.7) 09/04/19 06:28 Absolute Eosinophils 0.28 k/cumm (0.0-0.7) 09/04/19 06:28 Absolute Basophils 0.05 k/cumm (0.0-0.2) 09/04/19 06:28 PT 10.8 sec (9.3-11.0) 09/03/19 08:12 INR 1.1 (0.9-1.1) 09/03/19 08:12 APTT 25.3 sec (21.0-31.4) 09/03/19 08:12 Sodium 139 mmol/L (136-145) 09/08/19 06:05 Potassium 4.6 mmol/L (3.5-5.1) 09/08/19 06:05 Chloride 105 mmol/L (98-107) 09/08/19 06:05 Carbon Dioxide 26.9 mmol/L (21.0-32.0) 09/08/19 06:05 Anion Gap 7.1 mmol/L (3-11) 09/08/19 06:05 BUN 32 mg/dL (7-18) H 09/08/19 06:05 Creatinine 1.83 mg/dL (0.70-1.30) H 09/08/19 06:05 Estimated GFR/1.73 m2 37.11 (mL/min/1.73m2) 09/08/19 06:05 Glucose 103 mg/dL (74-106) 09/08/19 06:05 Hemoglobin A1c 11.0 % (3.8-5.6) H 09/03/19 06:28 Calcium 9.0 mg/dL (8.5-10.1) 09/08/19 06:05 Magnesium 2.0 mg/dL (1.8-2.4) 09/06/19 06:30 Iron 43 ug/dL (65-175) L 09/07/19 06:45 TIBC 218 ug/dL (250-450) L 09/07/19 06:45 Transferrin % Sat 20 % (20-55) 09/07/19 06:45 Ferritin 213 ng/mL (26-388) 09/07/19 06:45 Total Bilirubin 1.6 mg/dL (0.2-1.0) H 09/03/19 08:12 AST 29 U/L (15-37) 09/03/19 08:12 ALT 23 U/L (16-63) 09/03/19 08:12 Alkaline Phosphatase 96 U/L (46-116) 09/03/19 08:12 Creatine Kinase 247 U/L (39-308) 09/03/19 08:12 Troponin I < 0.05 ng/mL (<0.06) 09/04/19 06:28 NT-Pro-B Natriuret Pep 5983 pg/mL (<300) H 09/03/19 08:12 Total Protein 6.9 g/dL (6.4-8.2) 09/03/19 08:12 Albumin 2.8 g/dL (3.4-5.0) L 09/03/19 08:12 Triglycerides 131 mg/dL (<150) 09/04/19 06:28 Total Cholesterol 155 mg/dL (<200) 09/04/19 06:28 LDL Cholesterol, Calc 81 mg/dL (<100) 09/04/19 06:28 HDL Cholesterol 48 mg/dL (40-60) 09/04/19 06:28 Vitamin B12 409 pg/mL (193-986) 09/07/19 06:45 Folate 14.7 ng/mL (8.6-20.0) 09/07/19 06:45 TSH 5.32 uIU/mL (0.36-3.74) H 09/03/19 08:12 Urine Color Yellow (Yellow) 09/03/19 10:18 Urine Clarity Clear (Clear) 09/03/19 10:18 Urine pH 7.0 (5-8) 09/03/19 10:18 Ur Specific [place] 1.020 (1.005-1.025) 09/03/19 10:18 Urine Protein >=300 mg/dL (Negative) H 09/03/19 10:18 Urine Ketones Trace mg/dL (Negative) H 09/03/19 10:18 Urine Blood Small (Negative) H 09/03/19 10:18 Urine Nitrite Negative (Negative) 09/03/19 10:18 Urine Bilirubin Negative (Negative) 09/03/19 10:18 Urine Urobilinogen 0.2 EU/dL (Up TO 0.2) 09/03/19 10:18 Ur Leukocyte Esterase Negative (Negative) 09/03/19 10:18 Urine RBC 5-10 HPF (0-2) H 09/03/19 10:18 Urine WBC 0-2 HPF (0-5) 09/03/19 10:18 Ur Epithelial Cells Rare HPF (Negative) 09/03/19 10:18 Urine Crystals Negative HPF (Negative) 09/03/19 10:18 Urine Bacteria Negative HPF (Negative) 09/03/19 10:18 Urine Casts 0-2 coarse granular LPF (Negative) 09/03/19 10:18 Urine Mucus Negative (Negative) 09/03/19 10:18 Ur Culture Indicated? No 09/03/19 10:18 Urine Glucose 500 mg/dL (Negative) H 09/03/19 10:18 COVID-19 PCR Cancelled 09/06/19 10:33 COVID-19 PCR Not Applicable 09/06/19 10:33 Nasopharyn COVID-19 PCR Cancelled 09/06/19 10:33 Nasopharyn COVID-19 PCR Not detected ((See Note)) 09/06/19 10:33 Ref Test Perform Site Cancelled 09/06/19 10:33 Ref Test Perform Site See below 09/06/19 10:33
[2019-09-08] MEDS: Dextrose 50%-Water 25 GM/50 ML SYR IVP (12:03)
[2019-09-08 12:18] LABS: HCT 33.6 % (40.0-50.0); HGB 10.8 g/dL (13.5-17.5); Mean Corp. HGB Concentration 32.1 g/dL (32.0-36.0); Mean Corpuscular Hemoglobin 29.7 pg (27.0-33.0); Mean Corpuscular Volume 92.3 fL (80-95); Mean Platelet Volume 10.2 fL (8.0-11.0); Platelet Count 290 x1000/uL (130-400); RBC 3.64 m/cumm (4.50-6.00); RBC Distribution Width 15.3 % (11.8-14.1); White Blood Cell Count 8.17 k/cumm (4.4-10.8)
--- NOTE | 2019-09-08 14:06 | CMPROGNOTE_ITS ---
- If Service Date Differs Date of service: 09/08/19 Time of Service: 14:07 Care Management Progress Note S/O:Sher was sitting up in a chair when CM met with him. He appeared sleepy and shared that he is not doing well, observing that he feels that he is getting weaker and weaker. Sher's serum creatinine has been increasing every day and his hemoglobin has decreased from 12.6 on admission to 10.8 today. His stools remain hemoccult negative. Sher will be tranferred to [facility] when medically cleared, pending authorization from his insurance company. A: Sher is a 69 year old man admitted to [facility] on 09/03/19 with a CVA P:Sher will likely be discharged to [facility]. He has tentatively been accepted for transfer, pending receipt of authorization from Sher's insurance company. He will need a monitoring engineer placed prior to discharge pending approval. CM will continue to support Sher, his family and discharge planning needs.
[2019-09-08] MEDS: Heparin 5,000 UNITS/ML VIAL 5000 UNITS SC (14:42)
[2019-09-08] MEDS: rOPINIRole 1 MG TAB 2 MG PO (21:26)
[2019-09-08] MEDS: Atorvastatin 40 MG TAB 80 MG PO (21:26)
[2019-09-08] MEDS: Gabapentin 400 MG CAP PO (21:27)
[2019-09-08] MEDS: Mirtazapine 15 MG TAB PO (21:27)
[2019-09-08] MEDS: Insulin Aspart 300 UNITS/3 ML PEN SC (21:27)
[2019-09-08 22:05] LABS: COVID-19 RT-PCR UVMMC Result Negative (Negative)
[2019-09-09] MEDS: Heparin 5,000 UNITS/ML VIAL 5000 UNITS SC (02:16)
[2019-09-09 04:00] VITALS: BP 127/79; PULSE 65; RESP 20; TEMP 36.7; O2SAT 98
[2019-09-09] MEDS: Normal Saline 1,000 ML 100 ML IV (05:40)
[2019-09-09] MEDS: Levothyroxine 175 MCG TAB PO (05:40)
[2019-09-09 06:29] LABS: HGB 11.4 g/dL (13.5-17.5); Mean Corp. HGB Concentration 31.7 g/dL (32.0-36.0); Mean Corpuscular Hemoglobin 29.2 pg (27.0-33.0); Mean Corpuscular Volume 92.1 fL (80-95); Mean Platelet Volume 9.6 fL (8.0-11.0); Platelet Count 247 x1000/uL (130-400); RBC 3.91 m/cumm (4.50-6.00); RBC Distribution Width 15.2 % (11.8-14.1)
[2019-09-09 06:37] LABS: Anion Gap 5.7 mmol/L (3-11); BUN 27 mg/dL (7-18); CO2 26.3 mmol/L (21.0-32.0); CREATININE 1.44 mg/dL (0.70-1.30); Calcium 9.2 mg/dL (8.5-10.1); Chloride 106 mmol/L (98-107); Estimated GFR 48.93 (mL/min/1.73m2); Glucose 80 mg/dL (74-106); Magnesium 1.8 mg/dL (1.8-2.4); Potassium 4.9 mmol/L (3.5-5.1); Sodium 138 mmol/L (136-145)
[2019-09-09 07:12] VITALS: BP 129/83; PULSE 68; RESP 18; TEMP 36.9; O2SAT 95
[2019-09-09] MEDS: Budesonide/Formoterol 80/4.5 6.9 GM 60 PUFF INH IH (07:39)
[2019-09-09] MEDS: Aspirin E.C. 81 MG TABEC PO (08:21)
[2019-09-09] MEDS: Magnesium Chloride 64 MG TABCR PO (08:21)
[2019-09-09] MEDS: Tamsulosin 0.4 MG CAPCR PO (08:21)
[2019-09-09] MEDS: Cholecalciferol (Vitamin D3) 1,000 UNIT TAB 1000 UNITS PO (08:21)
[2019-09-09] MEDS: Polyethylene Glycol 3350 17 GM PACKET PO (08:21)
[2019-09-09] MEDS: Isosorbide Mononitrate 60 MG TABCR 120 MG PO (08:21)
[2019-09-09] MEDS: Clopidogrel 75 MG TAB PO (08:22)
[2019-09-09] MEDS: Ascorbic Acid 500 MG TAB PO (08:22)
[2019-09-09] MEDS: Ezetimibe 10 MG TAB PO (08:22)
[2019-09-09] MEDS: Metoprolol CR 100 MG TABCR PO (08:23)
[2019-09-09] MEDS: FLUoxetine 20 MG CAP PO (08:23)
[2019-09-09] MEDS: Cyanocobalamin 500 MCG TAB 1000 MCG PO (08:23)
[2019-09-09] MEDS: Multivitamin TAB 1 TAB PO (08:23)
[2019-09-09] MEDS: Ferrous Sulfate 325 MG TAB PO (08:23)
[2019-09-09] MEDS: Omeprazole 20 MG CAPCR 40 MG PO (08:28)
[2019-09-09] MEDS: Fluticasone NASAL SPRAY 16 GM BTL NS (08:46)
--- NOTE | 2019-09-09 09:36 | OT.INTREAT ---
Date of service: 09/09/19 Time of Service: 07:00 Occupational Therapy Notes Occupational Therapy Inpatient Treatment Note Date: 09/09/19 PRECAUTIONS: Fall, Standard, DNI SUBJECTIVE: Pt sitting in chair when OT arrived. He was agreeable to OT session and notes that he is fatigued and that his arm feels . He states that he is supposed to transition to [facility] today which he is looking forward to. He states that he feels like is body is getting heavier each day. OBJECTIVE: PAIN: c/o numbness throughout his body and feeling in (L) UE and (L) LE BATHING: Sitting in chair with max (A) set up/clean up Upper Body: (I) washing face with (R) UE, mod (A) washing (B) UE with min vc, pt was demonstrating fatigue and decreased functional activity tolerance. Lower body: Able to wash (R) thigh with (R) UE, attempts to wash (L) thigh with min vc but is unable due to fatigue. DRESSING: Upper Extremity: Mod (A) don and doffing hospital gown unable to perform AROM to (L) UE for arm into hospital gown with min vc and required max (A) for PROM. ASSESSMENT/ PLAN: Pt is presenting with significant decreased functional activity tolerance and fatigue. He has very minimal motion to his (L) UE and is presenting with (L) side neglect. Able to tolerate functional activities under 5 minutes then becomes too fatigued to perform without mod-max (A). TREATMENT CODES/TIME: 48284, 16 minutes (07:00) [facility]
--- NOTE | 2019-09-09 10:40 | W.PM.DS.N ---
Date of service: 09/09/19 Time of Service: 11:09 DS: Diagnosis Discharge Diagnosis (1) Right middle cerebral artery stroke: Status: Acute (2) Poorly controlled diabetes mellitus: Status: Acute (3) Hypokalemia: Status: Resolved (4) Essential hypertension: Status: Acute (5) Anemia: Status: Chronic (6) TIN (acute kidney injury): Status: Acute Discharge Plan Disposition Patient Disposition: SNF (LEVEL 1) [facility] Condition: Stable Discharge Details Chief Complaint: CVA/TIA Clinical Impression: Slurred speech, Facial droop, Generalized weakness Reason For Visit: ACUTE CVA Admit Date/Time: 09/03/19 15:02 Admit Provider: Risa Fleming Attending Provider: Risa Fleming Primary Care Provider: ALEXUS LAN ED Provider: Mounika Persaud Hospital Course Hospital Course: This is a 69 year-old, right-handed man with a past medical history including CVA, poorly-controlled diabetes with hemoglobin A1C of 11 who was admitted with a new right basal ganglia stroke manifested by left hemiparesis, dysarthria, and dysphagia, likely due to small vessel disease from poorly-controlled diabetes and hypertension. Neurology was consulted and recommended we continue to treat with asa 81 mg daily, plavix, and atorvastatin. He is being discharged to [facility] and rehab for further rehabilitation. He will be discharged on a zio patch. We did need to decrease his levimer to 30 units BID d/t some hypoglycemia. blood sugars have been better controlled in the 60-160's. He has not been taking his metformin, will defer when and if to start to outpatient team. He received IV fluids as his creatinine was increasing, which improved from 1.83 to 1.44. His lasix and losartan have been place on hold, blood sugars stable. He is tolerating po well. Covid 19 testing was negative. He has remained medically stable. He has been working with physical therapy and slowly progressing. case management has been following and referrals have been placed. He has been accepted at [facility] rehab. case and discharge plan discussed with Dr Shi who is in agreement Home Meds and New Rx's Prescriptions: New aspirin 81 mg Tablet,Delayed Release (Dr/Ec) 81 mg PO DAILY Qty: 0 RF: 0 ferrous sulfate 325 mg (65 mg iron) Tablet 325 mg PO BID Qty: 0 RF: 0 Continued mirtazapine 15 mg tablet 15 mg PO DAILY RF: 0 ProAir RespiClick 90 MCG aerosol powdr breath activated 90 mcg Inhalation Q4H PRN PRNRF: 0 insulin aspart U-100 [Novolog Flexpen U-100 Insulin] 100 UNIT/1 ML insulin pen See Rx Instructions .ROUTE .COMPLEX RF: 0 ketorolac 0.4 % drops 1 drp OP QID RF: 0 (DME) nebulizers Misc See Rx Instructions .ROUTE .MEDSUPPLY Qty: 1 RF: 0 (DME) oxygen-air delivery systems Device See Rx Instructions .ROUTE .MEDSUPPLY Qty: 1 RF: 0 clopidogrel [Plavix] 75 mg tablet 75 mg PO DAILY RF: 0 ezetimibe [Zetia] 10 MG tablet 10 mg PO QAM RF: 0 isosorbide mononitrate 120 MG tablet extended release 24 hr 120 mg PO QAM RF: 0 atorvastatin [Lipitor] 80 MG tablet 80 mg PO HS RF: 0 ropinirole 2 MG tablet 2 mg PO HS RF: 0 multivitamin [Daily Multi-Vitamin] 1 EACH tablet 1 tab PO QAM RF: 0 metoprolol succinate 100 MG tablet extended release 24 hr 100 mg PO DAILY RF: 0 tamsulosin 0.4 mg Capsule 0.4 mg PO DAILY RF: 0 omeprazole 20 MG capsule,delayed release(DR/EC) 40 mg PO DAILY RF: 0 gabapentin 300 mg Capsule 400 mg PO HS RF: 0 Slow-Mag 71.5 mg Tablet,Delayed Release (Dr/Ec) 71.5 mg PO DAILY RF: 0 polyethylene glycol 3350 [Miralax] 17 gram Powder In Packet 17 g PO DAILY RF: 0 levothyroxine 175 mcg Tablet 175 mcg PO DAILY RF: 0 nitroglycerin [Nitrostat] 0.4 mg Tablet, Sublingual 0.4 mg sublingual PRN PRNRF: 0 fluoxetine 20 mg Capsule 20 mg PO DAILY RF: 0 cholecalciferol (vitamin D3) [Vitamin D3] 25 mcg (1,000 unit) Tablet 1,000 unit PO DAILY RF: 0 fluticasone propionate [Flonase Allergy Relief] 50 mcg/actuation [place],Suspension 2 spray INTRANASAL DAILY RF: 0 budesonide-formoterol [Symbicort] 80-4.5 mcg/actuation Hfa Aerosol Inhaler 2 puff INHALATION BID RF: 0 Changed Levemir FlexTouch U-100 Insuln 100 unit/mL (3 mL) insulin pen 30 unit SC .am and pm Qty: 0 RF: 0 Discontinued chlorhexidine gluconate [Periogard] 0.12 % mouthwash 15 ml MM BID RF: 0 nystatin 100,000 unit/gram powder 1 applic TP TID RF: 0 clotrimazole 1 % cream 1 applic TP BID RF: 0 mometasone [Nasonex] 50 mcg/actuation spray,non-aerosol 2 spray ROSE MARY DAILY RF: 0 metformin 500 mg tablet 500 mg PO BID RF: 0 losartan 100 mg tablet 100 mg PO DAILY RF: 0 hydrocortisone 0.5 % cream 1 applic TP BID PRNRF: 0 furosemide 40 MG tablet 40 mg PO DAILY RF: 0 Discharge Instructions Instructions: Stroke (DC) Additional Instructions: continue to check blood sugars and adjust insulin as needed. drink 6-8 glasses of water daily to stay well hydrated. Stand Alone Forms: Nursing Discharge Form Referrals: ALEXUS LAN NP [Primary Care Provider] - (f/u for CVA) Activity:: Activity as Tolerated Equipment/Supplies:: No Equipment Needed Diet:: Carb Counting Discharge Orders Discharge Orders: Discharge Order (Routine); Ordered 09/09/19 Ordered By: Elmira De Jesus Discharge Data Discharge Date/Time-TO BE ENTERED AT DEPARTURE: 09/09/19 13:19 DS: Summary Status at Discharge Functional status at discharge: uses cane/walker Overall status at discharge: patient is progressing back to baseline Mental Status: mental status grossly normal Speech and Movement: slurred speech Mood: congruent mood Affect: normal affect Exam Const General: cooperative and comfortable Nutritional Appearance: obese Orientation: alert, awake and oriented x3 HENMT Head: normal to inspection, normocephalic and atraumatic Face and sinus: other (left sided facial droop) Mouth: oral mucosae normal Resp Effort & Inspection: normal respiratory effort Auscultation: clear to auscultation bilaterally Cardio Rate: regular rate Rhythm: regular rhythm GI Inspection: normal to inspection and obesity Palpation: soft Auscultation: normal bowel sounds General: other (sotelo draining blood tinged urine) Skin General skin exam: no rashes or lesions noted (chronic venous stasis changes to bilateral lower extremities) Neuro General: patient alert, patient awake, patient oriented x3 and moves all extremities (left sided weakness) Cognition: normal cognition Speech: abnormal speech slurred Motor: strength 5/5 throughout (4/4 on left. ) Extrem General: normal to inspection and edema (trace) Laterality: bilateral Psych Mental Status: mental status grossly normal Speech and Movement: slurred speech Mood: congruent mood Affect: normal affect DS: Data Vitals/I&O Vitals and I&O: Vital Signs Temperature 36.9 C 09/09/19 07:12 Temperature Source Temporal Artery Scan 09/09/19 07:12 Pulse 68 09/09/19 07:12 Pulse Rhythm Regular 09/09/19 07:55 Pulse 85 09/03/19 16:10 Respiratory Rate 18 09/09/19 07:12 Respiratory Effort Non-Labored 09/09/19 07:55 Respiratory Depth Normal 09/09/19 07:55 Respiratory Pattern Normal 09/09/19 07:55 Blood Pressure 129/83 09/09/19 07:12 Blood Pressure Mean 104 09/03/19 16:01 Blood Pressure Position Supine 09/03/19 08:11 Pulse Oximetry 95 09/09/19 07:12 Oxygen Delivery Method Room Air 09/09/19 07:12 Oxygen Flow Rate 0 09/09/19 07:12 Fraction of Inspired Oxygen (FIO2) 21 09/08/19 20:37 Pain Level 0 09/09/19 07:55 Comment 09/09/19 07:55 Intake & Output 09/08/19 09/08/19 09/09/19 11:59 23:59 11:59 Intake Total 1176.667 / 2656.667 1480 / 2656.667 1203.333 / 1203.333 Output Total 880 / 3180 2300 / 3180 2300 / 2300 Balance 296.667 / -523.333 -820 / -523.333 -1096.667 / -1096.667 Weight 131 kg 131.4 kg Intake: IV 936.667 / 6502.062 4260 / 1936.667 963.333 / 963.333 Oral 240 / 720 480 / 720 240 / 240 Output: Urine 880 / 3180 2300 / 3180 2300 / 2300 Other: Urine Color Yellow Yellow Straw Urine Appearance Clear Clear Clear Urine Odor None None Strong Comment Void x1 in the urinal. Voiding Methods Toilet Urinal Urinal Data Completed and Pending Labs on day of discharge: Labs from last 24 hours 09/09/19 09/09/19 09/08/19 06:15 06:15 09:20 WBC 7.20 RBC 3.91 L Hgb 11.4 L Hct 36.0 L MCV 92.1 MCH 29.2 MCHC 31.7 L RDW 15.2 H Plt Count 247 MPV 9.6 Sodium 138 Potassium 4.9 Chloride 106 Carbon Dioxide 26.3 Anion Gap 5.7 BUN 27 H Creatinine 1.44 H Estimated GFR/1.73 m2 48.93 Glucose 80 Calcium 9.2 Magnesium 1.8 COVID-19 PCR Negative Nasopharyn COVID-19 PCR Not Applicable Ref Test Perform Site [facility] 09/08/19 06:05 WBC 8.17 RBC 3.64 L Hgb 10.8 L Hct 33.6 L MCV 92.3 MCH 29.7 MCHC 32.1 RDW 15.3 H Plt Count 290 MPV 10.2 Sodium Potassium Chloride Carbon Dioxide Anion Gap BUN Creatinine Estimated GFR/1.73 m2 Glucose Calcium Magnesium COVID-19 PCR Nasopharyn COVID-19 PCR Ref Test Perform Site [facility] Medical History Anxiety with depression (Acute) Aortic valve replaced Back pain (Acute) CAD (coronary artery disease) COPD (chronic obstructive pulmonary disease) CVA (cerebral vascular accident) (Chronic) Diabetic neuropathy DM (diabetes mellitus) GERD (gastroesophageal reflux disease) (Chronic) H/O: HTN (hypertension) (Acute) Hematuria (Acute) History of bloody stools (Acute) HTN (hypertension) Hx of fall (Acute) Hyperlipidemia (Acute) Hypothyroidism Hypothyroidism (acquired) (Acute) Insomnia (Acute) Memory impairment (Acute) Obesity (Chronic) IVETTE (obstructive sleep apnea) IVETTE on CPAP (Chronic) Pacemaker Passive suicidal ideations (Acute) Perforated tympanic membrane (Acute) Polypharmacy (Acute) Proteinuria (Acute) Rash, skin (Acute) Renal insufficiency Sick sinus syndrome (Acute) Sinus node dysfunction (Acute) Tinea cruris (Acute) Surgical History Coronary Artery Bypass Gaft (CABG) Coronary Stent CABGx4 H/O carotid endarterectomy (Acute) Pacemaker Replacement of aortic valve Family History Other Cancer Heart disease Social History Smoking/Tobacco Use Status: Never Alcohol Intake: former Drug use: Never Substance use type: does not use Details: Pt reports no alcohol since his heart attack 1995 Household members: none Housing: other Details: [facility] Number of Children: 2 current occupation: Lives at [facility]. Disabled since . Seatbelt use: always Do you feel safe at home: Yes Do you feel safe in your relationship?: Yes Additional Social history: lives alone, [facility] comes in to assiste pt. Reports safety issue regarding leg giving out.
[2019-09-09 11:35] VITALS: BP 154/73; PULSE 68; RESP 19; TEMP 36.8; O2SAT 98
[2019-09-09] MEDS: Insulin Aspart 300 UNITS/3 ML PEN 30 UNITS SC (12:18)
--- NOTE | 2019-09-09 12:26 | PT.INTREAT ---
Date of service: 09/09/19 Time of Service: 12:27 PT Notes Visit Reasons: ACUTE CVA Inpatient Physical Therapy Treatment Note [facility] Date: 09/09/19 PRECAUTIONS: Fall, activity as tolerated SUBJECTIVE: Sher is agreeable to participating in PT, although he indicates that he is very tired this morning. When asked, he reports that he feels about the same as yesterday. OBJECTIVE: PAIN: Patient complains of buttock and spine pain from sitting up in chair BED MOBILITY/TRANSFERS Sit-supine: Mod A x2 with HOB flat Sit-stand: Min A x2 Stand-sit: CGA x1 + Min A x1 Chair-bed: Min A?Mod A GAIT Assistive Device: FWW Weight bearing: Full Assist: Min A x2 Distance: 10 steps Deviation: Mod A for FWW management with L UE THEREX: Patient completed a left lower extremity strengthening program, while seated at EOB, as per flow sheet. Patient required assistance with wrist flexion/extension and elbow flexion/extension due to weakness. ASSESSMENT: Patient was able to tolerate a slight progression in gait training, although does continue wtih require moderate physical assist for L UE to/with walker due to weakness. Patient would benefit from continued gait training for improved activity tolerance, as well as continued ther ex for improved strength, globally. PLAN: As per primary PT TREATMENT CODE/TIME: 25 minutes; 61866, [id number]
--- NOTE | 2019-09-09 13:26 | CMDISCH_ITS ---
- If Service Date Differs Date of service: 09/09/19 Time of Service: 13:26 LACE Index Scoring Tool - Questions: Length of Stay (in days): 4 - 6 Acuity (Admit via E.D.?): Yes Comorbidities: Cerebrovascular Disease, Diabetes w/o Complication, Chronic Pulmonary Disease E.D. Visits: 14 - Answers: Total Score: 16 Risk of Readmission: High Risk Care Management Discharge Reason for Hospitalization: Acute CVA Discharge Plan: Sher will be discharged to [facility] for short term rehab following a CVA. He will follow their plan of care and discharge plan. Sher will transport via wheelchair van from the facility. Patient/Family Education Needs: Discharge plan, limitations, follow up plan. Ask Me Three.
--- NOTE | 2019-09-10 07:36 | OTDS_ITS ---
Date of service: 09/10/19 Time of Service: 07:36 Occupational Therapy Notes Occupational Therapy Inpatient Discharge Summary Date: 09/10/19 Reporting Period: 09/04/19-09/10/19 Referring Doctor: Risa Fleming MD OT Orders: Non Urgent Precautions: Fall, Standard, DNI *This document serves as a summary of care, no skilled OT services provided for this documentation* PATIENT PROFILE/ADMITTING DIAGNOSIS: Pt is a 69 year old male who presented to the ED on 09/03/19 with Slurred speech, Facial droop, Generalized weakness. He was admitted to Med Surg with the following dx of acute CVA, dysarthria, h/o aortic valve replacement, type II DM, IVETTE, HTN. Past Medical History- Medical History (Updated 09/03/19 @ 18:55 by Risa Fleming MD) Anxiety with depression (Acute) Aortic valve replaced Back pain (Acute) CAD (coronary artery disease) COPD (chronic obstructive pulmonary disease) CVA (cerebral vascular accident) (Chronic) Diabetic neuropathy DM (diabetes mellitus) GERD (gastroesophageal reflux disease) (Chronic) H/O: HTN (hypertension) (Acute) Hematuria (Acute) History of bloody stools (Acute) HTN (hypertension) Hx of fall (Acute) Hyperlipidemia (Acute) Hypothyroidism Hypothyroidism (acquired) (Acute) Insomnia (Acute) Memory impairment (Acute) Obesity (Chronic) IVETTE (obstructive sleep apnea) IVETTE on CPAP (Chronic) Pacemaker Passive suicidal ideations (Acute) Perforated tympanic membrane (Acute) Polypharmacy (Acute) Proteinuria (Acute) Rash, skin (Acute) Renal insufficiency Sick sinus syndrome (Acute) Sinus node dysfunction (Acute) Tinea cruris (Acute) Surgical History (Updated 09/03/19 @ 18:31 by Risa Fleming MD) Coronary Artery Bypass Gaft (CABG) Coronary Stent CABGx4 H/O carotid endarterectomy (Acute) Pacemaker Replacement of aortic valve Social History/Home Situation: Pt was previously living at the [facility] on the 2nd floor with his cat. He reports that there is an elevator and that he typically utilizes the elevator when leaving. He has a FWW and 2 canes which he states that he uses for his functional mobility because he is wobbly. He states that he has a walk in shower with a seat and his living situation is handicap accessible. He does not drive at baseline and states that his PCP recommended that he no longer drive but states that the DMV sent him an active license so he says he has one if he needs to use it but hasnt. He does not require (A) at his baseline level of function and reports that he is (I). He has laundry in the building which he did himself and his son (A) him with grocery shopping when needed. Equipment owned/DME: shower seat, grab bars, FWW, 2-canes, handicap accessible apartment. SUBJECTIVE: NT OBJECTIVE: General Observation: (L) facial droop, difficulty with speech/understanding, (L) arm weakness, hand/digits open and propped on pillow, pt required legs up in chair and (A) with (L) arm to prevent risk of contractures. Mental Status: A&Ox3 Pain: no c/o pain ROM: RUE AROM WFL L UE AROM shoulder flexion to 40*, elbow with minimal movement unless passively (A), wrist and digits WNL, PROM to shoulder flexion WNL STRENGTH: RUE 3+/5 throughout globally LUE 2-/5 throughout globally SENSATION: decreased sensation in (L) UE/LE FUNCTIONAL MOBILITY/ADLS: BATHING sitting in chair with max (A) set up/clean up Upper Body: (I) washing face with (R) UE, mod (A) washing (B) UE with min vc, pt was demonstrating fatigue and decreased functional activity tolerance. Lower body: Able to wash (R) thigh with (R) UE, attempts to wash (L) thigh with min vc but is unable due to fatigue. DRESSING sitting in chair with mod vc Dressing UE Functional ROM of (L) UE and pt will require mod (A) with don and doffing [facility] gown due to lack of AROM of (L) UE Dressing LE Max (A) will be required for don and doffing (B) socks GROOMING NT pt has functional ROM to actively bring (B) UE to face, he denied performance of brushing his teeth at each session. TOILETING [place]on in place, pt was transitioning to commode by required mod-max (A) toileting hygiene. BALANCE: Static sitting Good Dynamic Sitting Good Static Standing NT Dynamic Standing NT ASSESSMENT: Patient is a 69 -year-old male referred to occupational therapy services with diagnosis of acute CVA, dysarthria, h/o aortic valve replacement, Type II DM, IVETTE, HTN. Pt was seen for 4 skilled OT sessions. In this time pt had a significant decline in use of his (L) UE which was a contributing factor in his decline in ADL/IADL routines. Throughout sessions he presented with decreased functional activity tolerance and increased fatigue with 2 step tasks. He has some functional AROM of his (L) UE but this is limited as he reports a feeling in the (L) side of his body. Pt was able to lift his (L) over his head to (A) with bathing under his arms but was tired post session. Pt was transitioned to SNF on 09/09/19. OT will formally discharge pt from OT services at this time. GOALS 1. Transfers with min (A) FWW- not met 2. Dressing sitting in bed min (A) don and doffing hospital gown, mod (A) don and doffing (B) socks- not met 3. Bathing sitting in bed (I) with (B) UE, min (A) abdomen, mod (A) (B) LE- not met 4. Toileting on commode with min (A)- not met 5. Eating min (A)- met PLAN OF CARE/TREATMENT PLAN: Pt was transitioned to [facility] (SNF) on 09/09/19 Discharge from OT services. DISCHARGE RECOMMENDATIONS Based on pts functional limitations at this time and increased risk for post secondary complications due to stroke, OT recommends that pt go to SNF when medically cleared per MD. TREATMENT TIME/MINUTES/CODES N/A Anne Marie Amato OTR/L [facility]
== END 2019-09-09 13:19 | disposition skilled nursing facility (03) | DRG 65 ==
LOC: ER 09:06 → MS 16:41
PROVIDERS: Nurse Practitioner Family; Admitting Provider Internal Medicine; Emergency Provider Physician Assistant; PCP Registered Nurse; Visit Provider Internal Medicine
DX: I63.89 Other cerebral infarction (principal); G81.94 Hemiplegia, unspecified affecting left nondominant side; Z68.43 Body mass index [BMI] 50.0-59.9, adult; N17.9 Acute kidney failure, unspecified; R47.1 Dysarthria and anarthria; E83.42 Hypomagnesemia; Z79.4 Long term (current) use of insulin; G47.33 Obstructive sleep apnea (adult) (pediatric); I10 Essential (primary) hypertension; R26.2 Difficulty in walking, not elsewhere classified; I25.10 Atherosclerotic heart disease of native coronary artery without angina pectoris; Z95.1 Presence of aortocoronary bypass graft; Z95.0 Presence of cardiac pacemaker; Z95.3 Presence of xenogenic heart valve; E78.5 Hyperlipidemia, unspecified; J44.9 Chronic obstructive pulmonary disease, unspecified; I73.9 Peripheral vascular disease, unspecified; R29.810 Facial weakness; R29.6 Repeated falls; I67.89 Other cerebrovascular disease; F41.8 Other specified anxiety disorders; M54.9 Dorsalgia, unspecified; E11.40 Type 2 diabetes mellitus with diabetic neuropathy, unspecified; K21.9 Gastro-esophageal reflux disease without esophagitis; E03.9 Hypothyroidism, unspecified; G47.00 Insomnia, unspecified; E66.9 Obesity, unspecified; E11.65 Type 2 diabetes mellitus with hyperglycemia; Z86.73 Personal history of transient ischemic attack (TIA), and cerebral infarction without residual deficits; E87.6 Hypokalemia; D64.9 Anemia, unspecified
CPT/HCPCS: 0296T; 36415; 36416; 51702; 70496; 70498; 76770; 80048; 80053; 80061; 82550; 82962; 85027; 93005; 93306; 94640; 96365; 96366; 97110; 97162; 97166; 97530; 97535; 99223; 99233; 99239; 99285; J3490; U0003; 70450; 71045; 81003; 81015; 82607; 82728; 82746; 83036; 83540; 83550; 83735; 83880; 84443; 84484; 85025; 85610; 85730; 93010; 94660; J1644; J3480

== ENCOUNTER → 2019-09-04 07:31 | Outpatient (BNVA) | payer OTHER, MEDICAID, SELFPAY ==
--- NOTE | 2019-09-10 10:31 | PT.INDS ---
Date of service: 09/10/19 Time of Service: 10:32 PT Notes Visit Reasons: [facility] INPATIENT-CVA Inpatient Physical Therapy Discharge Summary Dates: 09/10/2019 Dates of Service: 09/04/2019 through 09/09/2019 Referring Doctor: Risa Fleming MD PT Orders: PT CONSULT: Limited ability Precautions: Fall. Standard. Activity as tolerated. Patient Profile/Admitting Diagnosis: Sher is a 69-year-old male who presented to the ED on 09/03/2019 with chief complaints of left-sided facial droop, left arm and left leg weakness, and slurred speech. Patient is diagnosed with acute sudden, dysarthria, hypomagnesemia, type 2 diabetes mellitus, IVETTE, and ambulatory dysfunction with referral to skilled for therapy services in order to address resulting functional mobility impairments. Sher was previously evaluated on 09/02/2019 at the ED for safety assessment for D/C to home with recommendations given for use of wheelchair to use for the ramp to get into the apartment building and for HH PT to follow up right away to assess for home safety. Patient was adamant about intending to go home during the evaluation so aforementioned recommendations were stressed in the ED initial evaluation. (Please refer to ED eval dated 09/02/2019) PMHX: Medical History (Updated 09/03/19 @ 18:55 by Risa Fleming MD) Anxiety with depression (Acute) Aortic valve replaced Back pain (Acute) CAD (coronary artery disease) COPD (chronic obstructive pulmonary disease) CVA (cerebral vascular accident) (Chronic) Diabetic neuropathy DM (diabetes mellitus) GERD (gastroesophageal reflux disease) (Chronic) H/O: HTN (hypertension) (Acute) Hematuria (Acute) History of bloody stools (Acute) HTN (hypertension) Hx of fall (Acute) Hyperlipidemia (Acute) Hypothyroidism Hypothyroidism (acquired) (Acute) Insomnia (Acute) Memory impairment (Acute) Obesity (Chronic) IVETTE (obstructive sleep apnea) IVETTE on CPAP (Chronic) Pacemaker Passive suicidal ideations (Acute) Perforated tympanic membrane (Acute) Polypharmacy (Acute) Proteinuria (Acute) Rash, skin (Acute) Renal insufficiency Sick sinus syndrome (Acute) Sinus node dysfunction (Acute) Tinea cruris (Acute) Surgical History (Updated 09/03/19 @ 18:31 by Risa Fleming MD) Coronary Artery Bypass Graft (CABG) Coronary Stent CABGx4 H/O carotid endarterectomy (Acute) Pacemaker Replacement of aortic valve Social History/Home Situation: Patient lives on the second floor of the [facility]. He states that he has been limited to only doing indoor ambulation using his 4-wheeled walker and has a motorized wheelchair that he uses for outdoors but currently has battery issues. Equipment Owned/DME: Motorized wheelchair with battery issue, 4-wheeled walker Subjective: NT Objective: General Observation: NT Mental Status: NT Pain: NT ROM: Right Upper Extremity: Shoulder Flexion WFL. Shoulder abduction WFL. Elbow flexion WFL. Wrist flexion WFL. Opening and closing of hand WFL. Left Upper Extremity: Shoulder Flexion allows up to 120 degrees. Shoulder abduction allows up to 100 degrees. Elbow flexion WFL. Wrist flexion WFL. Opening and closing of hand WFL. Right Lower Extremity: Hip flexion WFL. Hip abduction WFL. Knee flexion WFL. Ankle dorsiflexion WFL. Ankle plantarflexion WFL. Left Lower Extremity: Hip flexion does not allow any flexion beyond 90 while seated at edge of bed. Hip abduction allows to 10 degrees. Knee flexion allows up to 90 degrees. Ankle dorsiflexion allows 10 degrees of dorsiflexion beyond neutral. Ankle plantarflexion WFL. Strength: Right Upper Extremity: Shoulder flexors 5/5. Shoulder abductors 5/5. Elbow flexors 5/5. Elbow extensors 5/5. Expeditionary Fighting Vehicle Crewman strong. Left Upper Extremity: Shoulder flexors 3-/5. Shoulder abductors 3-/5. Elbow flexors 4-/5. Elbow extensors 4-/5. Expeditionary Fighting Vehicle Crewman weak but functional. Right Lower Extremity: Hip flexors 5/5. Hip abductors 5/5. Knee flexors 5/5. Knee extensors 5/5. Ankle dorsiflexors 5/5. Ankle plantarflexors 5/5. Left Lower Extremity:Hip flexors 2-/5. Hip abductors 2-/5. Knee flexors 3--/5. Knee extensors 3-/5. Ankle dorsiflexors 3-/5. Ankle plantarflexors 4-/5. Sensation: Diminished on the L UE/LE Bed Mobility/Transfers: Supine to sit moderate assist x 2 Sit to supine moderate assist x 2 Sit to stand minimal assist x 2, cues needed for hand placement, requires use of a walker Stand to sit minimal assist x 2, cues needed for hand placement, requires use of a walker Bed to chair minimal assist x 2, cues needed for hand placement, requires use of a walker Chair to bed minimal assist x 2, cues needed for hand placement, requires use of a walker Gait: Patient tolerated short distance ambulation of 8-10 feet with front wheeled walker with minmal assist of 2. Vania decreased. Dorsiflexion on the left decreased. Patient reports being exhausted from a short walk and wanted to rest continue to sleep. Functional hospital receiving clerk on the left walker handle seen. Required much more help today than he did on day of evaluation. Balance: Static Sitting: Good Dynamic Sitting: Good Static Standing: Poor Dynamic Standing: Poor Assessment: Sher continues to demonstrates left-sided hemiparesis on the left UE/LE compounding the pre-existing B UE/LE weakness that has started a couple of weeks ago, functional mobility decline requiring the use of front wheeled for all mobility performance, impairment in balance, unsteadiness of gait, and limited activity tolerance resulting from admitting diagnoses and past medical history. Sher is a 69-year-old male who presented to the ED on 09/03/2019 with chief complaints of left-sided facial droop, left arm and left leg weakness, and slurred speech. Patient is diagnosed with acute sudden, dysarthria, hypomagnesemia, type 2 diabetes mellitus, IVETTE, and ambulatory dysfunction with referral to skilled for therapy services in order to address resulting functional mobility impairments. Sher was previously evaluated on 09/02/2019 at the ED for safety assessment for D/C to home but because patient was adamant about intending to go home (he did not want to stay at hospital nor go somewhere else) during the evaluation so aforementioned recommendations were stressed in the ED initial evaluation with recommendations given for use of wheelchair for the ramp to get into the apartment building and for HH PT to follow up right away to assess for home safety. Patient continues to present with clinical signs and symptoms consistent with current/admitting diagnoses that have resulted to mobility limitations, gait instability, generalized weakness, and impairment of motor control as demonstrated by the following impairment level findings: 1. Decreased strength to left UE/LE major muscle groups with pre-existing weakness to right UE/LE 2. Impaired sitting/standing balance 3. Impaired activity tolerance 4. Limitation of joint range of motion in L UEs/LE joints Impairments are continuing to contribute to the following functional limitations: 1. Dependent bed mobility skills 2. dependent with transfers 3. Inability to safely ambulate without assistive device and physical assistance 4. Increase completion time for mobility ADL performance 5. Increased fall risk 6. Inability to negotiate steps alone safely Goals: Goals X1 week 1. Supine-Sit independent NOT MET 2. Sit-Supine independent NOT MET 3. Sit-Stand independent NOT MET 4. Stand-Sit independent NOT MET 5. Bed-Chair independent NOT MET 6. Chair-Bed independent NOT MET 7. Independent gait on level surface with use of least restrictive device for at least 300 feet without report of pain nor dyspnea NOT MET 8. Independent stair negotiation while holding onto bilateral rails for at least 10 steps without report of pain nor dyspnea NOT MET 9. Independent with home exercise program NOT MET 10. Good static and dynamic standing balance/tolerance NOT MET DISCHARGE RECOMMENDATIONS: Patient will benefit from long term facility placement for continued skilled physical therapy services in order to progress mobility level, strength, and balance in preparation for a safe discharge to home. TREATMENT CODE/TIME: NC. Thank you very much for this referral. Melissa Cavazos PT, DPT, CLT [facility] [place], [place]
== END ==
PROVIDERS: PCP Registered Nurse; Referring Provider Registered Nurse; Visit Provider Psychiatry & Neurology Neurology
DX: R69 Illness, unspecified (principal)

== ENCOUNTER → 2019-09-16 13:35 | Outpatient (REF) | payer OTHER, MEDICAID, SELFPAY ==
[2019-09-17 17:58] LABS: COVID-19 RT-PCR Result Not Detected ((See Note))
== END ==
LOC: LBN 13:35
PROVIDERS: PCP Registered Nurse; Visit Provider Nurse Practitioner Adult Health
DX: Z03.818 Encounter for observation for suspected exposure to other biological agents ruled out (principal)
CPT/HCPCS: U0003

== ENCOUNTER 2019-09-23 18:08 | Outpatient (REF) | payer OTHER, MEDICAID, SELFPAY ==
[2019-09-24 17:37] LABS: COVID-19 RT-PCR Result Not Detected ((See Note))
--- NOTE | 2019-10-02 10:28 | W.ZIOMONITOR ---
Date of service: 10/02/19 Time of Service: 10:28 ZIO Patch Charging Machine Operator Referring Provider:: Antelmo Indications:: CVA Note: This is a 2-week ZIO patch ordered for the indication of CVA. ?Patient was in normal sinus rhythm as well as atrially paced beats for the majority of the recording. Maximal heart rate was 87 bpm with an average heart rate of 63 bpm. ?There were isolated PACs and PVCs. ?There were no episodes of ventricular tachycardia, no pauses or in 3 seconds and no evidence of high degree heart block. ?There were no episodes of atrial fibrillation. ?There were no patient triggered events.
== END 2019-09-23 18:28 ==
LOC: LBN 18:08
PROVIDERS: PCP Registered Nurse; Visit Provider Nurse Practitioner Adult Health
DX: Z03.818 Encounter for observation for suspected exposure to other biological agents ruled out (principal)
CPT/HCPCS: U0003

== ENCOUNTER 2019-10-02 09:00 | Outpatient (CLI) | payer OTHER, MEDICAID, SELFPAY | END 2019-10-02 09:20 | PROVIDERS: PCP Registered Nurse; Referring Provider Registered Nurse; Visit Provider Internal Medicine Cardiovascular Disease | DX: I63.9 Cerebral infarction, unspecified (principal); I49.1 Atrial premature depolarization; I49.3 Ventricular premature depolarization | CPT/HCPCS: 0298T ==

== ENCOUNTER 2019-10-10 14:50 | Outpatient (REF) | payer OTHER, MEDICAID, SELFPAY ==
[2019-10-10 20:45] LABS: Abs Immature Grans 0.02 10^3/uL (0.0-0.06); Absolute Basophil Count 0.06 10^3/uL (0.0-0.2); Absolute Eosinophil Count 0.16 10^3/uL (0.0-0.7); Absolute Lymphocyte Count 1.66 10^3/uL (1.2-3.4); Absolute Monocyte Count 0.47 10^3/uL (0.1-0.8); Absolute Neutrophil Count 4.68 10^3/uL (1.2-6.7); Basophils % 0.9; Eosinophils % 2.3; HCT 37.1 % (40.0-50.0); HGB 12.1 g/dL (13.5-17.5); Immature Grans % 0.3; Lymphocytes % 23.5; MCH 28.8 pg (27.0-33.0); MCHC 32.6 % (32.0-36.0); MCV 88.3 fL (80-95); MPV 10.5 fL (8.0-11.0); Monocytes % 6.7; Neutrophils % 66.3; Platelet Count 279 10^3/uL (130-400); RDW 14.7 % (11.8-14.1); RDW-SD 47.2 fL; WBC 7.05 10^3/uL (4.4-10.8)
[2019-10-10 21:14] LABS: ALT 31 U/L (16-63); AST 30 U/L (15-37); Albumin 3.1 g/dL (3.4-5.0); Alkaline Phosphatase 97 U/L (46-116); Anion Gap 8.6 mmol/L (3-11); BUN 27 mg/dL (7-18); CO2 29.4 mmol/L (21.0-32.0); CREATININE 1.44 mg/dL (0.70-1.30); Chloride 103 mmol/L (98-107); Estimated GFR 48.93 (mL/min/1.73m2); Glucose 156 mg/dL (74-106); Sodium 141 mmol/L (136-145); Total Protein 6.8 g/dL (6.4-8.2)
== END 2019-10-10 15:10 ==
LOC: NCHCN 14:50
PROVIDERS: PCP Registered Nurse; Visit Provider Registered Nurse
DX: E87.6 Hypokalemia (principal); D64.9 Anemia, unspecified; M54.5 Low back pain
CPT/HCPCS: 80053; 85025; 87086

== ENCOUNTER 2019-11-08 21:40 | Inpatient (IN) | payer OTHER, MEDICAID, SELFPAY ==
[2019-11-08] VITALS (23 sets, daily range): BP systolic 166–210; BP diastolic 77–142; PULSE 63–76; RESP 16–30; TEMP 36.6; O2SAT 91–98
--- NOTE | 2019-11-08 21:30 | RT.EKG_ITS ---
APPROVED REPORT Exam: Resting ECG Patient Location: E HR:73 bpm ECG Measurements Heart Rate 73 AXIS NH 167 P 66 QRSd 149 QRS -59 QT 443 T 96 QTc 488 Conclusion Sinus rhythm...normal P axis, V-rate 60- 99 Right bundle branch block...QRSd>120, terminal axis(90,270) Inferior infarct, old...Q >35mS, II III aVF I have reviewed and interpreted ECG and agree with software generated interpretation.
--- NOTE | 2019-11-08 21:44 | ED.GENADUL_ITS ---
Discharge Plan Disposition [facility] Condition: Poor Discharge Details Chief Complaint: SOB Clinical Impression: CHF (congestive heart failure) Primary Care Provider: ALEXUS LAN ED Provider: Jaylen España Hooper Meds and New Rx's Prescriptions: No Action mirtazapine 15 mg tablet 15 mg PO DAILY RF: 0 ProAir RespiClick 90 MCG aerosol powdr breath activated 90 mcg Inhalation Q4H PRN PRNRF: 0 insulin aspart U-100 [Novolog Flexpen U-100 Insulin] 100 UNIT/1 ML insulin pen See Rx Instructions .ROUTE .COMPLEX RF: 0 ketorolac 0.4 % drops 1 drp OP QID RF: 0 (DME) nebulizers Misc See Rx Instructions .ROUTE .MEDSUPPLY Qty: 1 RF: 0 (DME) oxygen-air delivery systems Device See Rx Instructions .ROUTE .MEDSUPPLY Qty: 1 RF: 0 clopidogrel [Plavix] 75 mg tablet 75 mg PO DAILY RF: 0 ezetimibe [Zetia] 10 MG tablet 10 mg PO QAM RF: 0 isosorbide mononitrate 120 MG tablet extended release 24 hr 120 mg PO QAM RF: 0 atorvastatin [Lipitor] 80 MG tablet 80 mg PO HS RF: 0 ropinirole 2 MG tablet 2 mg PO HS RF: 0 multivitamin [Daily Multi-Vitamin] 1 EACH tablet 1 tab PO QAM RF: 0 metoprolol succinate 100 MG tablet extended release 24 hr 100 mg PO DAILY RF: 0 tamsulosin 0.4 mg Capsule 0.4 mg PO DAILY RF: 0 omeprazole 20 MG capsule,delayed release(DR/EC) 40 mg PO DAILY RF: 0 aspirin 81 mg Tablet,Delayed Release (Dr/Ec) 81 mg PO DAILY Qty: 0 RF: 0 ferrous sulfate 325 mg (65 mg iron) Tablet 325 mg PO BID Qty: 0 RF: 0 Levemir FlexTouch U-100 Insuln 100 unit/mL (3 mL) insulin pen 30 unit SC .am and pm Qty: 0 RF: 0 gabapentin 300 mg Capsule 400 mg PO HS RF: 0 Slow-Mag 71.5 mg Tablet,Delayed Release (Dr/Ec) 71.5 mg PO DAILY RF: 0 polyethylene glycol 3350 [Miralax] 17 gram Powder In Packet 17 g PO DAILY RF: 0 levothyroxine 175 mcg Tablet 175 mcg PO DAILY RF: 0 nitroglycerin [Nitrostat] 0.4 mg Tablet, Sublingual 0.4 mg sublingual PRN PRNRF: 0 fluoxetine 20 mg Capsule 20 mg PO DAILY RF: 0 cholecalciferol (vitamin D3) [Vitamin D3] 25 mcg (1,000 unit) Tablet 1,000 unit PO DAILY RF: 0 fluticasone propionate [Flonase Allergy Relief] 50 mcg/actuation [place],Suspension 2 spray INTRANASAL DAILY RF: 0 budesonide-formoterol [Symbicort] 80-4.5 mcg/actuation Hfa Aerosol Inhaler 2 puff INHALATION BID RF: 0 Medical Decision Making Patient presenting with increasing shortness of breath over time. He uses CPAP at night. States that is not even helping at this point. No pain. No fever. Does admit to cough. Arrives markedly hypertensive with increased work of breathing. Significant lower extremity edema. Suspect fluid overload and hypertensive urgency. His EKG shows no sign of ischemia. He has chronic right bundle branch block. IV in place and laboratory studies sent. 1 inch Nitropaste applied and 40 mg of Lasix given IV. Note patient is not as best I can tell on diuretics as outpatient. Laboratory studies show normal white count. Baseline anemia without change. Chemistries with no significant abnormalities. Baseline creatinine. Negative troponin. Elevated BNP to 7300 which is higher than any previous value. Also elevated d-dimer. He is fairly sedentary with minimal activity. Seems to be better on BiPAP with Nitropaste and is diuresing. Blood pressure coming down little by little. Again suspicion is for fluid overload and hypertensive urgency. Doubt PE but given elevated d-dimer and sedentary lifestyle as well as body habitus will obtain CTA. CTA of chest negative for PE. He does have small to moderate bilateral pleural effusions. Atelectasis versus infiltrate in the bases but given no fever or white count presume atelectasis. Patient has been seen by hospitalist. He will be admitted for further management and diuresis. Medical Records Medical records reviewed: Yes I reviewed the patient's medical records. Lab Data Lab results reviewed: Yes I reviewed the patient's lab results. ECG Data Attestation: I personally reviewed and interpreted this ECG (s) as follows: Interpretation: See EKG interpretation HPI General Mode of arrival: EMS . Date/Time Provider Initiated Documentation: 11/08/19 21:43 . Limitations to Documentation: no limitations . Information obtained by: patient, RN notes reviewed and old records reviewed . HPI Narrative: Patient presents to ED by ambulance with increasing shortness of breath over couple of weeks. Patient suffered significant CVA this summer. He is currently at [facility] for assisted living. The EMS crew that brought him in [facility] had responded to him a couple days ago with diabetic emergency related to hypoglycemia. He was not transported at that time. The medic reports that he had no complaints of shortness of breath then. Patient however states that it is slowly been getting worse over couple of weeks. He does have a dry cough. He does not leave [facility] at all. He has no COVID exposure. There has been no cases at that assisted living facility. He reports weight gain, leg edema, increasing shortness of breath. He denies chest pain or pressure. He does report that he continues to make urine. He has no URI complaints, UTI complaints, GI complaints. Related Data Home Medications Medication Instructions Recorded Confirmed atorvastatin [Lipitor] 80 mg PO HS 01/05/14 09/03/19 ezetimibe [Zetia] 10 mg PO QAM 01/05/14 09/03/19 isosorbide mononitrate 120 mg PO QAM 01/05/14 09/03/19 multivitamin [Daily Multi-Vitamin] 1 tab PO QAM 01/05/14 09/03/19 ropinirole 2 mg PO HS 01/05/14 09/03/19 metoprolol succinate 100 mg PO DAILY 04/02/17 09/03/19 ProAir RespiClick 90 mcg INHALATION Q4H PRN PRN 07/10/17 09/03/19 insulin aspart U-100 [Novolog See Rx Instructions .ROUTE .COMPLEX 07/20/17 09/03/19 Flexpen U-100 Insulin] mirtazapine 15 mg tablet 15 mg PO DAILY 07/23/18 09/03/19 gabapentin 400 mg PO HS 10/04/18 09/03/19 Slow-Mag 71.5 mg PO DAILY 10/18/18 09/03/19 clopidogrel 75 mg tablet 75 mg PO DAILY 04/01/19 09/03/19 ketorolac 0.4 % eye drops 1 drp OP QID 04/01/19 09/03/19 nebulizers #1 each 04/01/19 08/27/19 oxygen-air delivery systems #1 04/01/19 08/27/19 fluoxetine 20 mg PO DAILY 05/29/19 09/03/19 levothyroxine 175 mcg PO DAILY 05/29/19 09/03/19 nitroglycerin [Nitrostat] 0.4 mg SUBLINGUAL PRN PRN 05/29/19 09/03/19 polyethylene glycol 3350 [Miralax] 17 g PO DAILY 05/29/19 09/03/19 tamsulosin 0.4 mg PO DAILY 07/18/19 09/03/19 budesonide-formoterol [Symbicort] 2 puff INHALATION BID 09/02/19 09/03/19 cholecalciferol (vitamin D3) 1,000 unit PO DAILY 09/02/19 09/03/19 [Vitamin D3] fluticasone propionate [Flonase 2 spray INTRANASAL DAILY 09/02/19 09/03/19 Allergy Relief] omeprazole 40 mg PO DAILY 09/03/19 09/03/19 Levemir FlexTouch U-100 Insuln 30 unit SC .am and pm #0 ml 09/09/19 09/03/19 aspirin 81 mg PO DAILY #0 tab 09/09/19 ferrous sulfate 325 mg PO BID #0 tab 09/09/19 Previous Rx's Medication Instructions Recorded Levemir FlexTouch U-100 Insuln 30 unit SC .am and pm #0 ml 09/09/19 aspirin 81 mg PO DAILY #0 tab 09/09/19 ferrous sulfate 325 mg PO BID #0 tab 09/09/19 Allergies Allergy/AdvReac Type Severity Reaction Status Date / Time No Known Allergies Allergy Unverified 11/08/19 22:02 General [place]: 2 Review of Systems Narrative: 12/23 Review of Systems completed and is negative except as stated above in HPI (Systems reviewed: Const, Eyes, ENT, Resp, CV, GI, , MSK, Skin, Neuro) [facility] Medical History Anxiety with depression (Acute) Aortic valve replaced Back pain (Acute) CAD (coronary artery disease) COPD (chronic obstructive pulmonary disease) CVA (cerebral vascular accident) (Chronic) Diabetic neuropathy DM (diabetes mellitus) GERD (gastroesophageal reflux disease) (Chronic) H/O: HTN (hypertension) (Acute) Hematuria (Acute) History of bloody stools (Acute) HTN (hypertension) Hx of fall (Acute) Hyperlipidemia (Acute) Hypothyroidism Hypothyroidism (acquired) (Acute) Insomnia (Acute) Memory impairment (Acute) Obesity (Chronic) IVETTE (obstructive sleep apnea) IVETTE on CPAP (Chronic) Pacemaker Passive suicidal ideations (Acute) Perforated tympanic membrane (Acute) Polypharmacy (Acute) Proteinuria (Acute) Rash, skin (Acute) Renal insufficiency Sick sinus syndrome (Acute) Sinus node dysfunction (Acute) Tinea cruris (Acute) Surgical History Coronary Artery Bypass Gaft (CABG) Coronary Stent CABGx4 H/O carotid endarterectomy (Acute) Pacemaker Replacement of aortic valve Family History Other Cancer Heart disease Social History Smoking/Tobacco Use Status: Never Alcohol Intake: former Drug use: Never Substance use type: does not use Details: Pt reports no alcohol since his heart attack 1995 Household members: none Housing: other Details: [facility] Number of Children: 2 current occupation: Lives at [facility]. Disabled since . Seatbelt use: always Do you feel safe at home: Yes Do you feel safe in your relationship?: Yes Additional Social history: lives alone, [facility] comes in to assiste pt. Reports safety issue regarding leg giving out. Exam Narrative Exam Narrative: Vitals: Afebrile. Markedly hypertensive. Normal pulse. Increased work of breathing but room air saturations in the low 90s. Const: Obese male in no distress but with increase work of breathing. HEENT: NC/AT. Normal facial exam. Eyes: Normal conjunctiva and sclera. Neck: Supple. Trachea midline. Lungs: Lungs are both clear. No wheezing. Few rhonchi. Cor: RRR without murmur/gallop. Good radial pulses. GI: Soft. NT/ND. No guarding or rebound. Neuro: A+O x 3. Normal speech, mentation. Cranial nerves II - XII grossly intact. Residual left-sided weakness from stroke this summer. Sensation intact. Ext: No C/C. Significant bilateral lower extremity edema. Skin: Warm and dry without rash.
--- NOTE | 2019-11-08 22:00 | DI.RAD_ITS ---
EXAM: XR PORTABLE CHEST AP CLINICAL HISTORY: SOB TECHNIQUE: 2D digital imaging was performed. COMPARISON: CR XR PORTABLE CHEST AP from 08/21/2019 FINDINGS: MEDIASTINUM: Normal. HEART: Cardiomegaly. PULMONARY VASCULATURE: Normal. LUNGS: Small right basilar infiltrate. PLEURAL SPACE: No pleural effusion or pneumothorax. BONE:Sternotomy. OTHER FINDINGS:Pacing wires in good position. IMPRESSION: Right basilar infiltrate which may represent atelectasis or pneumonia. DATA REPOSITORY: RADIATION DOSE DELIVERED:
[2019-11-08] MEDS: nitroGLYcerin 2% 1 INCH/1 GM PKT TP (22:25)
[2019-11-08] MEDS: Furosemide 40 MG/4 ML VIAL IVP (22:25)
[2019-11-08 22:42] LABS: Abs Immature Grans 0.01 10^3/uL (0.0-0.06); Absolute Basophil Count 0.05 10^3/uL (0.0-0.2); Absolute Eosinophil Count 0.13 10^3/uL (0.0-0.7); Absolute Lymphocyte Count 1.82 10^3/uL (1.2-3.4); Absolute Monocyte Count 0.59 10^3/uL (0.1-0.8); Absolute Neutrophil Count 3.32 10^3/uL (1.2-6.7); Basophils % 0.8; Eosinophils % 2.2; HCT 39.2 % (40.0-50.0); HGB 12.4 g/dL (13.5-17.5); Immature Grans % 0.2; Lymphocytes % 30.7; MCH 28.2 pg (27.0-33.0); MCHC 31.6 % (32.0-36.0); MCV 89.1 fL (80-95); MPV 9.7 fL (8.0-11.0); Neutrophils % 56.1; Nucleated RBC 0 %; Platelet Count 255 10^3/uL (130-400); WBC 5.92 10^3/uL (4.4-10.8)
[2019-11-08 23:02] LABS: ALT 21 U/L (16-63); AST 17 U/L (15-37); Albumin 2.7 g/dL (3.4-5.0); Alkaline Phosphatase 114 U/L (46-116); Anion Gap 9.7 mmol/L (3-11); BUN 13 mg/dL (7-18); Bilirubin, Total 1.8 mg/dL (0.2-1.0); CO2 27.3 mmol/L (21.0-32.0); CREATININE 1.34 mg/dL (0.70-1.30); Chloride 102 mmol/L (98-107); Estimated GFR 53.17 (mL/min/1.73m2); Glucose 320 mg/dL (74-106); Magnesium 1.5 mg/dL (1.8-2.4); NT-proBNP 7358 pg/mL (<300); Potassium 3.6 mmol/L (3.5-5.1); Sodium 139 mmol/L (136-145); Total Protein 6.7 g/dL (6.4-8.2); Troponin I < 0.05 ng/mL (<0.06)
--- NOTE | 2019-11-08 23:14 | DI.VRAD_ITS ---
PROCEDURE INFORMATION: Exam: XR Chest, 1 View Exam date and time: 11/08/2019 10:42 PM Age: 69 years old Clinical indication: Shortness of breath; Patient HX: SOB TECHNIQUE: Imaging protocol: XR of the chest Views: 1 view. COMPARISON: CR XR CHEST 1V IN DI DEPT 09/03/2019 9:56 AM FINDINGS: Lungs: Mild pulmonary venous congestion. No sabrina pulmonary edema. Mild atelectasis or infiltrate within the right lung base. Pleural space: Unremarkable. No pleural effusion. No pneumothorax. Heart/Mediastinum: The cardiac silhouette is moderately enlarged. Bones/joints: Unremarkable. IMPRESSION: Pulmonary venous congestion with mild atelectasis or infiltrate within the right lung base. Dictated and Authenticated by: Yasmin Mckeon MD. Ordering:KARLO York MD
[2019-11-08 23:15] LABS: D-Dimer 1831 ng/mlFEU (<500)
--- NOTE | 2019-11-08 23:15 | DI.CT_ITS ---
EXAM: CT CHEST PE CTA CLINICAL HISTORY: SOB with elevated d-dimer. TECHNIQUE: Imaging Protocol: Axial CT angiography was performed with multi-slice acquisition and mu lti-planar and/or 3D reconstructions. CONTRAST MATERIAL: Intravenous: Omnipaque 350 Contrast volume:100 mL COMPARISON: CT CT BRAIN NECK CTA from 09/03/2019 FINDINGS: Pulmonary Arteries: No evidence of filling defect to suggest pulmonary emboli. Tracheobronchial tree: Patent where visualized. Mediastinum and Maryanne: No dominant adenopathy or fluid collection. Pulmonary parenchyma: Small subjacent basilar infiltrates may represent atelectasis or pneumonia. No architectural distortion. Pleura: Bilateral moderate pleural effusions. No pneumothorax. Heart: Cardiomegaly. Aortic stent. No pericardial effusion. Marked coronary artery calcification. No pericardial effusion. Aorta: Thoracic aorta non-dilated. Atherosclerosis. Upper abdomen: Unremarkable. Bones: Degenerative changes. Status post sternotomy. Soft tissues: Unremarkable. IMPRESSION: 1. No evidence of pulmonary embolism, thoracic aortic dissection or aneurysm. 2. Moderate bilateral pleural effusions with subjacent infiltrates. RADIATION DOSE DELIVERED: 650.05mGy.cm Total DLP DATA REPOSITORY: All CT scans at this facility are submitted to the National Radiology Data Registry (NRDR) Dose Index Registry (DIR) with the [employer] (ACR). RADIATION OPTIMIZATION: All CT scans at this facility use at least one of these dose optimization te chniques: automated exposure control; mA and/or kV adjustment per patient size (includes targeted exa ms where dose is matched to clinical indication); or iterative reconstruction.
[2019-11-09] VITALS (31 sets, daily range): BP systolic 118–210; BP diastolic 61–110; PULSE 63–118; RESP 10–25; TEMP 35.5–36.7; O2SAT 91–97
--- NOTE | 2019-11-09 01:30 | HPE_ITS ---
Date of service: 11/09/19 Time of Service: : Assessment and Plan Assessment and plan (1) HFrEF (heart failure with reduced ejection fraction): Status: Acute Assessment and plan: Patient's clinical presentation with shortness of breath seems most consistent with episode of congestive heart failure. Chest x- ray and BNP with this assessment. Patient has had at least 3 echocardiograms in July and August 2019, all showing reduced ejection fraction somewhere in 35 to 40%. His respiratory symptoms are likely complicated by his chronic obstructive pulmonary disease and obstructive sleep apnea. I do not think he has an active pneumonia based on his symptoms. We are going to rule him out for COVID. Is responding to IV Lasix in the emergency room. We will continue this with additional dosing later this morning. (2) Poorly controlled diabetes mellitus: Status: Acute Assessment and plan: Last hemoglobin A1c in August was 11. We will monitor him on his outpatient insulin and adjust as necessary. (3) CAD (coronary artery disease): Status: Chronic Assessment and plan: Previously diagnosed coronary artery disease, status post CABG. His current presentation does not appear to be induced by acute cardiac ischemia, but I will add a troponin is was not done emergency room. Do not think this is ACS, but troponin may help with prognosis. (4) CVA (cerebral vascular accident): Status: Chronic Assessment and plan: Patient has recovered well from his CVA in August, though he still has mobility issues. Continue statin and antiplatelet agents. Qualifiers: CVA mechanism: thrombosis Precerebral and cerebral artery: posterior cerebral artery Laterality of affected vessel: right Qualified Code(s): I63.331 - Cerebral infarction due to thrombosis of right posterior cerebral artery (5) Renal insufficiency: Status: Acute Assessment and plan: Renal insufficiency at close to his baseline. Follow with diuresis. (6) Hypertension: Status: Chronic Assessment and plan: Blood pressure quite elevated in the emergency room likely secondary to fluid overload. I am not can to be very aggressive to try to bring this down. He does have Nitropaste, and anticipate the blood pressures will improve with diuresis. (7) Anemia: Status: Chronic Assessment and plan: Mild, so I do not think this is contributing to his shortness of breath. (8) IVETTE (obstructive sleep apnea): Status: Acute Assessment and plan: Currently on BiPAP, continue overnight (9) Hypothyroidism: Status: Acute Assessment and plan: TSH was 5 in August, though he was sick. We will continue his previous function dosing and defer any adjustments to outpatient. 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 Patient states shortness of breath progressed gradually over the last 2 days. He has had sl ight cough but no sputum production or hemoptysis. He denies chest pain or palpitations. He has noted some weight gain and increase in peripheral edema. His shortness of breath is worse lying down and it is improved by CPAP, which she does use at rehab. There are no cases of COVID-19 at the [facility] and rehab, the patient has not traveled or had other exposures. He has some chronic sinus symptoms, but no sore throat or changes in taste or smell. Review of Systems All systems reviewed & are unremarkable except as noted in HPI and below Constitutional Constitutional: Reports as per HPI and Reports frequent falls Comments: [place] feverish yesterday, not today Neurologic Neurologic: Reports frequent falls Comments: Difficulty with his voice and left-sided weakness have improved significantly since his previous admission [facility] Medical History Anxiety with depression (Acute) Aortic valve replaced Back pain (Acute) CAD (coronary artery disease) COPD (chronic obstructive pulmonary disease) CVA (cerebral vascular accident) (Chronic) Diabetic neuropathy DM (diabetes mellitus) GERD (gastroesophageal reflux disease) (Chronic) H/O: HTN (hypertension) (Acute) Hematuria (Acute) History of bloody stools (Acute) HTN (hypertension) Hx of fall (Acute) Hyperlipidemia (Acute) Hypothyroidism Hypothyroidism (acquired) (Acute) Insomnia (Acute) Memory impairment (Acute) Obesity (Chronic) IVETTE (obstructive sleep apnea) IVETTE on CPAP (Chronic) Pacemaker Passive suicidal ideations (Acute) Perforated tympanic membrane (Acute) Polypharmacy (Acute) Proteinuria (Acute) Rash, skin (Acute) Renal insufficiency Sick sinus syndrome (Acute) Sinus node dysfunction (Acute) Tinea cruris (Acute) Surgical History Coronary Artery Bypass Gaft (CABG) Coronary Stent CABGx4 H/O carotid endarterectomy (Acute) Pacemaker Replacement of aortic valve Family History Other Cancer Heart disease Social History Smoking/Tobacco Use Status: Never Alcohol Intake: former Drug use: Never Substance use type: does not use Details: Pt reports no alcohol since his heart attack 1995 Household members: none Housing: other Details: [facility] Number of Children: 2 current occupation: Lives at [facility]. Disabled since . Seatbelt use: always Do you feel safe at home: Yes Do you feel safe in your relationship?: Yes Additional Social history: lives alone, area on aging comes in to assiste pt. Reports safety issue regarding leg giving out. Meds Home Medications and Allergies Home Medications Medication Instructions Recorded Confirmed Type atorvastatin [Lipitor] 80 mg PO HS 01/05/14 09/03/19 History ezetimibe [Zetia] 10 mg PO QAM 01/05/14 09/03/19 History isosorbide mononitrate 120 mg PO QAM 01/05/14 09/03/19 History multivitamin [Daily Multi-Vitamin] 1 tab PO QAM 01/05/14 09/03/19 History ropinirole 2 mg PO HS 01/05/14 09/03/19 History metoprolol succinate 100 mg PO DAILY 04/02/17 09/03/19 History ProAir RespiClick 90 mcg INHALATION Q4H PRN PRN 07/10/17 09/03/19 History insulin aspart U-100 [Novolog See Rx Instructions .ROUTE .COMPLEX 07/20/17 09/03/19 History Flexpen U-100 Insulin] mirtazapine 15 mg tablet 15 mg PO DAILY 07/23/18 09/03/19 History gabapentin 400 mg PO HS 10/04/18 09/03/19 History Slow-Mag 71.5 mg PO DAILY 10/18/18 09/03/19 History clopidogrel 75 mg tablet 75 mg PO DAILY 04/01/19 09/03/19 History ketorolac 0.4 % eye drops 1 drp OP QID 04/01/19 09/03/19 History nebulizers #1 each 04/01/19 08/27/19 History oxygen-air delivery systems #1 04/01/19 08/27/19 History fluoxetine 20 mg PO DAILY 05/29/19 09/03/19 History levothyroxine 175 mcg PO DAILY 05/29/19 09/03/19 History nitroglycerin [Nitrostat] 0.4 mg SUBLINGUAL PRN PRN 05/29/19 09/03/19 History polyethylene glycol 3350 [Miralax] 17 g PO DAILY 05/29/19 09/03/19 History tamsulosin 0.4 mg PO DAILY 07/18/19 09/03/19 History budesonide-formoterol [Symbicort] 2 puff INHALATION BID 09/02/19 09/03/19 History cholecalciferol (vitamin D3) 1,000 unit PO DAILY 09/02/19 09/03/19 History [Vitamin D3] fluticasone propionate [Flonase 2 spray INTRANASAL DAILY 09/02/19 09/03/19 History Allergy Relief] omeprazole 40 mg PO DAILY 09/03/19 09/03/19 History Levemir FlexTouch U-100 Insuln 30 unit SC .am and pm #0 ml 09/09/19 09/03/19 Rx aspirin 81 mg PO DAILY #0 tab 09/09/19 Rx ferrous sulfate 325 mg PO BID #0 tab 09/09/19 Rx Allergies Allergy/AdvReac Type Severity Reaction Status Date / Time No Known Allergies Allergy Unverified 11/08/19 22:02 Exam Narrative Exam Narrative: General: Alert and oriented, lying in bed with CPAP placed, pleasant and coherent in his history. Able to speak in short sentences HEENT: Atraumatic. Conjunctive are clear no icterus. Pupils equal round reactive to light with extraocular motions intact. Moist mucous membranes with no oropharyngeal lesions. Neck is supple with no masses or lymphadenopathy. Difficult to determine regular venous distention with body habitus and BiPAP mask. Cardiovascular: Regular rate and rhythm, no murmurs gallops or rubs. Lungs: Somewhat diminished diffusely but clear bilaterally with no rales or wheezes currently. Mildly dyspneic with any movement. Abdomen: Active bowel sounds, soft, nontender and nondistended Extremities: 1+ edema bilaterally shins. Nontender to palpation. Neurologic: Cranial nerves II through XII grossly intact. Strength in upper and lower extremities is close to symmetric. Sensation light touch intact in all 4 extremities. Normal coordination and speech. No tremor. MSK: No joint redness or swelling Skin: No rashes or ulcerations or significant bruising Psychiatric: Normal mood and affect Results EKG: Sinus rhythm with right bundle branch block, old inferior Q waves. CT chest: No evidence for pulmonary embolism. Some motion artifact. Small to moderate sized bilateral pleural effusions with passive atelectasis or infiltrate within the lower lobes Chest x-ray: Pulmonary venous congestion and mild atelectasis or infiltrate in the right lung base Labs Result diagrams: 11/08/19 22:00 11/08/19 22:00 Labs: Laboratory Results - last 24 hr 11/08/19 11/08/19 11/08/19 22:00 22:00 22:00 WBC 5.92 RBC 4.40 Hgb 12.4 L Hct 39.2 L MCV 89.1 MCH 28.2 MCHC 31.6 L RDW 16.0 H Plt Count 255 MPV 9.7 Immature Gran % 0.2 Neutrophils % 56.1 Lymphocytes % 30.7 Monocytes % 10.0 Eosinophils % 2.2 Basophils % 0.8 Nucleated RBC % 0 Absolute Neutrophils 3.32 Absolute Lymphocytes 1.82 Absolute Monocytes 0.59 Absolute Eosinophils 0.13 Absolute Basophils 0.05 D-Dimer 1831 H Sodium 139 Potassium 3.6 Chloride 102 Carbon Dioxide 27.3 Anion Gap 9.7 BUN 13 Creatinine 1.34 H Estimated GFR/1.73 m2 53.17 Glucose 320 H Calcium 9.0 Magnesium 1.5 L Total Bilirubin 1.8 H AST 17 ALT 21 Alkaline Phosphatase 114 Troponin I < 0.05 NT-Pro-B Natriuret Pep 7358 H Total Protein 6.7 Albumin 2.7 L Last Vital Signs Temp 36.6 C 11/08/19 21:53 Pulse 69 11/09/19 00:18 Resp 20 11/09/19 00:30 BP 184/99 H 11/09/19 00:16 Pulse Ox 94 L 11/09/19 00:30 COVID-19 Screening Have you,or household,traveled outside [place] in last 14 days?: No Had IN PERSON contact w/suspected or confirmed C-19 person: No
--- NOTE | 2019-11-09 01:36 | DI.VRAD_ITS ---
PROCEDURE INFORMATION: Exam: CT Angiography Chest With Contrast Exam date and time: 11/08/2019 11:21 PM Age: 69 years old Clinical indication: Shortness of breath; Prior surgery; Patient HX: SOB with elevated d dimer TECHNIQUE: Imaging protocol: Computed tomographic angiography of the chest with intravenous contrast. 3D rendering (Not supervised by radiologist): MIP and/or 3D reconstructed images were created by the technologist. COMPARISON: CT CHEST PE CTA 12/15/2018 8:37 PM FINDINGS: Pulmonary arteries: The pulmonary arteries opacify normally with contrast. Please note, the distal segmental branches are not well evaluated secondary to patient respiratory motion artifact. Aorta: The thoracic aorta is normal in caliber without aneurysm or evidence for dissection. Lungs: Mild passive atelectasis or infiltrate within the lower lobes. Pleural space: Small to moderate size bilateral pleural effusions are seen. Heart: An aortic valve replacement is again seen. Postoperative changes of a CABG. A 2 lead cardiac pacemaker is seen with leads in the right atrium and right ventricle. Lymph nodes: Unremarkable. No enlarged lymph nodes. Bones/joints: Mild degenerative changes within the thoracic spine. No evidence for acute compression fracture. Soft tissues: Unremarkable. IMPRESSION: 1. No evidence for acute pulmonary embolism. Please note, the distal segmental branches are not well evaluated secondary to respiratory motion artifact. 2. Small to moderate size bilateral pleural effusions with passive atelectasis or infiltrate within the lower lobes. Dictated and Authenticated by: Yasmin Mckeon MD. Ordering:KARLO York MD
[2019-11-09 02:27] LABS: Troponin I < 0.05 ng/mL (<0.06)
--- NOTE | 2019-11-09 03:19 | NUR.NOTE ---
Nursing Note: BP noted to be rising prior to giving report to 2nd floor. Also questioned in report. Called Dr Cheung and discussed with him. BP taken with bigger cuff in both arms and noted to be slightly lower. Pt denies any headaches, shortness of breath or other symptoms. Pt noted to be breathing better and less short of breath as he has had much fluid out with lasix given. Update called to floor. No change in plan of care at this time.
[2019-11-09] MEDS: Levothyroxine 175 MCG TAB PO (04:57)
[2019-11-09] MEDS: Normal Saline Flush 10 ML SYR IVP ×3 (04:57→17:39)
[2019-11-09] MEDS: MAGNESIUM SULFATE 2 GM/50 ML BAG IVPB ×3 (04:57→17:37)
[2019-11-09] MEDS: Heparin 5,000 UNITS/ML VIAL 5000 UNITS SC ×3 (04:57→21:13)
[2019-11-09 06:54] LABS: Magnesium 1.5 mg/dL (1.8-2.4)
[2019-11-09] MEDS: Omeprazole 20 MG CAPCR 40 MG PO (08:52)
[2019-11-09] MEDS: Polyethylene Glycol 3350 17 GM PACKET PO (08:52)
[2019-11-09] MEDS: Ezetimibe 10 MG TAB PO (08:52)
[2019-11-09] MEDS: FLUoxetine 20 MG CAP PO (08:53)
[2019-11-09] MEDS: Clopidogrel 75 MG TAB PO (08:53)
[2019-11-09] MEDS: Metoprolol CR 100 MG TABCR PO (08:53)
[2019-11-09] MEDS: Tamsulosin 0.4 MG CAPCR PO (08:53)
[2019-11-09] MEDS: Isosorbide Mononitrate 60 MG TABCR 120 MG PO (08:53)
[2019-11-09] MEDS: Aspirin E.C. 81 MG TABEC PO (08:53)
[2019-11-09] MEDS: Magnesium Chloride 64 MG TABCR PO ×2 (08:53→21:13)
[2019-11-09] MEDS: Furosemide 40 MG/4 ML VIAL IVP ×2 (08:54→17:37)
[2019-11-09] MEDS: Mirtazapine 15 MG TAB PO (08:54)
[2019-11-09] MEDS: Insulin Aspart 300 UNITS/3 ML PEN SC ×2 (09:59→12:18)
[2019-11-09] MEDS: Insulin Aspart 300 UNITS/3 ML PEN 15 UNITS SC ×2 (10:00→12:19)
[2019-11-09] MEDS: Fluticasone NASAL SPRAY 16 GM BTL NS (10:08)
--- NOTE | 2019-11-09 11:02 | INITIAL_ITS ---
- If Service Date Differs Date of service: 11/09/19 Time of Service: 11:02 Care Management Initial Assess REASON FOR HOSPITALIZATION:: Heart failure with reduced ejection fraction. PAST MEDICAL HISTORY/PAST SURGICAL HISTORY:: Medical History: Anxiety with d epression, Aortic valve replaced, Back pain, CAD (coronary artery disease), COPD (chronic obstructive pulmonary disease), CVA (cerebral vascular accident), Diabetic neuropathy, DM (diabetes mellitus), GERD (gastroesophageal reflux disease), H/O: HTN (hypertension), Hematuria, History of bloody stools, Hx of fall, Hyperlipidemia, Hypothyroidism, Insomnia, Memory impairment, Obesity, IVETTE (obstructive sleep apnea) on CPAP, Pacemaker, Passive suicidal ideations, Perforated tympanic membrane, Polypharmacy, Proteinuria, Rash, skin, Renal insufficiency, Sick sinus syndrome, Sinus node dysfunction, and Tinea cruris. Surgical History: Coronary Artery Bypass [place] (CABG), Coronary Stent, CABGx4, H/O carotid endarterectomy, Pacemaker, and Replacement of aortic valve. PREVIOUS FUNCTIONAL STATUS/SOCIAL/FAMILY SUPPORTS:: Sher lives alone in an apartment at the [facility] on [facility] in [place]. He has two sons who live in the [facility], a brother in [place], and a sister who lives locally and is supportive of him. 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 He ambulates with a walker and canes and has an electric scooter that he uses to get around town. Sher no longer drives. CURRENT FUNCTIONAL STATUS:: CM is unable to meet with Sher as he is currently pending COVID-19 results. CM will continue to follow. ADVANCE DIRECTIVES:: On file; romeo Hinkle is healthcare agent. Has patient been provided with info about the portal/API?: No Did the patient sign up for the portal?: No CODE STATUS:: DNI INSURANCE COVERAGE / FINANCIAL ISSUES:: [employer] (commercial MCR replacement) and Medicaid. CURRENT HOME/COMMUNITY SERVICES/EQUIPMENT:: Sher has a walker, canes, and an electric scooter. He also has a CPAP machine. He has a briefcase sewer through [facility] and is also working with Franklyn Ontiveros from [facility]. PRIMARY CARE PHYSICIAN:: Asmita Brown POTENTIAL DISCHARGE NEEDS:: Follow up appointments with PCP and selector packer. PATIENT/FAMILY EDUCATION NEEDS:: Discharge instructions, limitations and follow up plan of care, including Ask Me Three and self management. ANTICIPATED BARRIERS TO DISCHARGE:: No anticipated barriers at this time. TRANSPORTATION:: Remains to be determined depending on disposition. PLAN:: Anticipate Sher will be discharged home when medically cleared by provider with a resumption of services through [facility] and [facility]. Sher would benefit from a placement at an assisted living facility, but this has been discussed with him in the past and he has always opted to return home to his apartment. Current disposition will be determined by the course of his illness. CM will continue to support Sher and discharge planning considerations.
[2019-11-09 12:43] LABS: Anion Gap 6.3 mmol/L (3-11); BUN 11 mg/dL (7-18); CO2 33.7 mmol/L (21.0-32.0); CREATININE 1.27 mg/dL (0.70-1.30); Calcium 8.9 mg/dL (8.5-10.1); Chloride 100 mmol/L (98-107); Estimated GFR 56.57 (mL/min/1.73m2); Glucose 205 mg/dL (74-106); Potassium 3.1 mmol/L (3.5-5.1); Sodium 140 mmol/L (136-145)
--- NOTE | 2019-11-09 12:45 | RT.EKG_ITS ---
APPROVED REPORT Exam: Resting ECG Patient Location: I HR:122 bpm ECG Measurements Heart Rate 122 AXIS VT [id number] P [id number] QRSd 153 QRS -16 QT 410 T 99 QTc 584 Conclusion Atrial flutter with predominant 2:1 AV block...A-rate 245, multiple Ps Right bundle branch block...QRSd>120, terminal axis(90,270) ST elevation secondary to atrial flutter
[2019-11-09 13:25] LABS: TSH (W/Ref FT4) 0.19 uIU/mL (0.36-3.74)
[2019-11-09 13:36] LABS: Procalcitonin < 0.1 ng/mL
[2019-11-09 13:50] LABS: FREE T4 1.81 ng/dL (0.76-1.46)
--- NOTE | 2019-11-09 17:35 | W.PM.PROGNOT ---
Date of Service Date of service: 11/09/19 Time of Service: 17:35 Subjective Subjective Interval history since last seen: Mr Hinkle states that he is doing a little better. Has a dry cough. Wearing CPAP. He requests a podiatry consult to have toe nails cut. He told me he fell at home a few days ago because he was/while he was hypoglycemic and was weak and could not get to the kitchen. He activated his life alert button at that time. He agrees to see physical therapy. He appears to have been having accelerated junctional rhythm on telemetry, in 120s. Had evidence of Afib overnight, as well, which would be a new diagnosis. He is a huge risk to fall, so no anticoagulation is being initiated at this time. I am adjusting his beta blockers. Consider cardiology consult. Objective Objective Clinical Data: Abnormal lab results 11/08/19 11/08/19 11/08/19 Range/Units 22:00 22:00 22:00 Hgb 12.4 L (13.5-17.5) g/dL Hct 39.2 L (40.0-50.0) % MCHC 31.6 L (32.0-36.0) % RDW 16.0 H (11.8-14.1) % D-Dimer 1831 H (<500) ng/mlFEU Potassium (3.5-5.1) mmol/L Carbon Dioxide (21.0-32.0) mmol/L Creatinine 1.34 H (0.70-1.30) mg/dL Glucose 320 H (74-106) mg/dL Magnesium 1.5 L (1.8-2.4) mg/dL Total Bilirubin 1.8 H (0.2-1.0) mg/dL NT-Pro-B Natriuret Pep 7358 H (<300) pg/mL Albumin 2.7 L (3.4-5.0) g/dL TSH (0.36-3.74) uIU/mL Free T4 (0.76-1.46) ng/dL 11/09/19 11/09/19 11/09/19 Range/Units 02:00 12:25 12:25 Hgb (13.5-17.5) g/dL Hct (40.0-50.0) % MCHC (32.0-36.0) % RDW (11.8-14.1) % D-Dimer (<500) ng/mlFEU Potassium 3.1 L (3.5-5.1) mmol/L Carbon Dioxide 33.7 H (21.0-32.0) mmol/L Creatinine (0.70-1.30) mg/dL Glucose 205 H D (74-106) mg/dL Magnesium 1.5 L (1.8-2.4) mg/dL Total Bilirubin (0.2-1.0) mg/dL NT-Pro-B Natriuret Pep (<300) pg/mL Albumin (3.4-5.0) g/dL TSH 0.19 L (0.36-3.74) uIU/mL Free T4 1.81 H (0.76-1.46) ng/dL Vital Signs Temperature 35.5 C L 11/09/19 16:20 Temperature Source Tympanic 11/09/19 16:20 Pulse 118 H 11/09/19 16:20 Pulse Rhythm Regular 11/09/19 11:12 Pulse 69 11/09/19 02:46 Respiratory Rate 20 11/09/19 16:20 Respiratory Effort 11/09/19 11:12 Respiratory Depth Normal 11/09/19 11:12 Respiratory Pattern Tachypnea 11/09/19 11:12 Blood Pressure 118/61 11/09/19 16:20 Blood Pressure Mean 119 11/09/19 02:46 Pulse Oximetry 97 11/09/19 16:20 Oxygen Delivery Method Nasal Cannula 11/09/19 16:20 Oxygen Flow Rate 1 11/09/19 16:20 Fraction of Inspired Oxygen (FIO2) 21 11/09/19 00:18 Pain Level 0 11/09/19 16:20 Comment 11/09/19 12:00 Intake & Output 11/08/19 11/09/19 11/09/19 23:59 11:59 23:59 Intake Total Output Total 1125 / 1125 6985 / 8325 1340 / 8325 Balance -1125 / -1125 -6975 / -8315 -1340 / -8315 Weight 131.6 kg 129.1 kg Intake: IV Output: Urine 1125 / 1125 6985 / 8325 1340 / 8325 Other: Urine Color Yellow Yellow Urine Appearance Clear Clear Urine Odor None None Stool Size Small Stool Characteristics Formed Voiding Methods Urinal Urinal Laboratory Results WBC 5.92 10^3/uL (4.4-10.8) 11/08/19 22:00 RBC 4.40 10^6/uL (4.36-5.78) 11/08/19 22:00 Hgb 12.4 g/dL (13.5-17.5) L 11/08/19 22:00 Hct 39.2 % (40.0-50.0) L 11/08/19 22:00 MCV 89.1 fL (80-95) 11/08/19 22:00 MCH 28.2 pg (27.0-33.0) 11/08/19 22:00 MCHC 31.6 % (32.0-36.0) L 11/08/19 22:00 RDW 16.0 % (11.8-14.1) H 11/08/19 22:00 Plt Count 255 10^3/uL (130-400) 11/08/19 22:00 MPV 9.7 fL (8.0-11.0) 11/08/19 22:00 Immature Gran % 0.2 11/08/19 22:00 Neutrophils % 56.1 11/08/19 22:00 Lymphocytes % 30.7 11/08/19 22:00 Monocytes % 10.0 11/08/19 22:00 Eosinophils % 2.2 11/08/19 22:00 Basophils % 0.8 11/08/19 22:00 Nucleated RBC % 0 % 11/08/19 22:00 Absolute Neutrophils 3.32 10^3/uL (1.2-6.7) 11/08/19 22:00 Absolute Lymphocytes 1.82 10^3/uL (1.2-3.4) 11/08/19 22:00 Absolute Monocytes 0.59 10^3/uL (0.1-0.8) 11/08/19 22:00 Absolute Eosinophils 0.13 10^3/uL (0.0-0.7) 11/08/19 22:00 Absolute Basophils 0.05 10^3/uL (0.0-0.2) 11/08/19 22:00 D-Dimer 1831 ng/mlFEU (<500) H 11/08/19 22:00 Sodium 140 mmol/L (136-145) 11/09/19 12:25 Potassium 3.1 mmol/L (3.5-5.1) L 11/09/19 12:25 Chloride 100 mmol/L (98-107) 11/09/19 12:25 Carbon Dioxide 33.7 mmol/L (21.0-32.0) H 11/09/19 12:25 Anion Gap 6.3 mmol/L (3-11) 11/09/19 12:25 BUN 11 mg/dL (7-18) 11/09/19 12:25 Creatinine 1.27 mg/dL (0.70-1.30) 11/09/19 12:25 Estimated GFR/1.73 m2 56.57 (mL/min/1.73m2) 11/09/19 12:25 Glucose 205 mg/dL (74-106) H D 11/09/19 12:25 Calcium 8.9 mg/dL (8.5-10.1) 11/09/19 12:25 Magnesium 1.5 mg/dL (1.8-2.4) L 11/09/19 02:00 Total Bilirubin 1.8 mg/dL (0.2-1.0) H 11/08/19 22:00 AST 17 U/L (15-37) 11/08/19 22:00 ALT 21 U/L (16-63) 11/08/19 22:00 Alkaline Phosphatase 114 U/L (46-116) 11/08/19 22:00 Troponin I < 0.05 ng/mL (<0.06) 11/09/19 02:00 NT-Pro-B Natriuret Pep 7358 pg/mL (<300) H 11/08/19 22:00 Total Protein 6.7 g/dL (6.4-8.2) 11/08/19 22:00 Albumin 2.7 g/dL (3.4-5.0) L 11/08/19 22:00 Procalcitonin < 0.1 ng/mL 11/09/19 12:25 TSH 0.19 uIU/mL (0.36-3.74) L 11/09/19 12:25 Free T4 1.81 ng/dL (0.76-1.46) H 11/09/19 12:25 COVID-19 PCR Cancelled 11/08/19 23:54 Nasopharyn COVID-19 PCR Cancelled 11/08/19 23:54 Ref Test Perform Site Cancelled 11/08/19 23:54
[2019-11-09] MEDS: Potassium Chloride 20 MEQ TABCR 40 MEQ PO ×2 (17:37→21:13)
[2019-11-09] MEDS: Metoprolol 25 MG TAB PO (17:37)
[2019-11-09] MEDS: Budesonide/Formoterol 80/4.5 10.2 GM 120 PUFF INH IH (21:12)
[2019-11-09] MEDS: Metoprolol 50 MG TAB PO (21:13)
[2019-11-09] MEDS: rOPINIRole 1 MG TAB 2 MG PO (21:13)
[2019-11-09] MEDS: Atorvastatin 40 MG TAB 80 MG PO (21:13)
[2019-11-09] MEDS: Gabapentin 400 MG CAP PO (21:21)
[2019-11-10] VITALS (7 sets, daily range): BP systolic 97–138; BP diastolic 52–84; PULSE 55–72; RESP 16–20; TEMP 35.5–36.8; O2SAT 91–97
[2019-11-10] MEDS: Levothyroxine 175 MCG TAB PO (05:18)
[2019-11-10] MEDS: Metoprolol 50 MG TAB PO ×3 (05:18→21:42)
[2019-11-10] MEDS: Heparin 5,000 UNITS/ML VIAL 5000 UNITS SC ×2 (05:18→15:06)
[2019-11-10 07:39] LABS: HCT 36.9 % (40.0-50.0); HGB 11.8 g/dL (13.5-17.5); MCH 28.5 pg (27.0-33.0); MCV 89.1 fL (80-95); MPV 9.6 fL (8.0-11.0); Platelet Count 248 10^3/uL (130-400); RBC 4.14 10^6/uL (4.36-5.78); RDW-SD 52.3 fL; WBC 6.46 10^3/uL (4.4-10.8)
[2019-11-10 07:52] LABS: Anion Gap 2.5 mmol/L (3-11); BUN 11 mg/dL (7-18); CO2 37.5 mmol/L (21.0-32.0); CREATININE 1.41 mg/dL (0.70-1.30); Calcium 9.2 mg/dL (8.5-10.1); Chloride 102 mmol/L (98-107); Estimated GFR 50.14 (mL/min/1.73m2); Glucose 81 mg/dL (74-106); Magnesium 2.3 mg/dL (1.8-2.4); Potassium 3.4 mmol/L (3.5-5.1); Sodium 142 mmol/L (136-145)
[2019-11-10] MEDS: Ezetimibe 10 MG TAB PO (08:01)
[2019-11-10] MEDS: Magnesium Chloride 64 MG TABCR PO ×2 (08:01→19:25)
[2019-11-10] MEDS: Potassium Chloride 20 MEQ TABCR 40 MEQ PO ×2 (08:01→11:32)
[2019-11-10] MEDS: Clopidogrel 75 MG TAB PO (08:02)
[2019-11-10] MEDS: Mirtazapine 15 MG TAB PO (08:02)
[2019-11-10] MEDS: FLUoxetine 20 MG CAP PO (08:02)
[2019-11-10] MEDS: Aspirin E.C. 81 MG TABEC PO (08:02)
[2019-11-10] MEDS: Omeprazole 20 MG CAPCR 40 MG PO (08:02)
[2019-11-10] MEDS: Fluticasone NASAL SPRAY 16 GM BTL NS (08:02)
[2019-11-10] MEDS: Isosorbide Mononitrate 60 MG TABCR 120 MG PO (08:02)
[2019-11-10] MEDS: Tamsulosin 0.4 MG CAPCR PO (08:02)
[2019-11-10] MEDS: Polyethylene Glycol 3350 17 GM PACKET PO (08:03)
[2019-11-10] MEDS: Furosemide 40 MG/4 ML VIAL IVP (08:03)
[2019-11-10 08:20] LABS: COVID-19 RT-PCR UVMMC Result Negative
[2019-11-10] MEDS: Budesonide/Formoterol 80/4.5 10.2 GM 120 PUFF INH IH ×2 (08:22→19:24)
[2019-11-10 10:46] LABS: Troponin I < 0.05 ng/mL (<0.06)
--- NOTE | 2019-11-10 11:47 | W.PM.PROGNOT ---
Date of Service Date of service: 11/10/19 Time of Service: 11:47 Assessment and Plan Assessment and plan (1) HFrEF (heart failure with reduced ejection fraction): Status: Acute Assessment and plan: Acute on chronic, EF 35-40% by echo in 08/2019 at [facility]. Due to ICMO. Acute exacerbation is likely in part due to hypertensive urgency/emergency on presentation. COVID-19 ruled out. Transition lasix to PO as he is improving. He is on beta blockers, but not kristofer-i or aldactone, which could be considered, though today's blood pressures as beautiful. I will add a small dose of lisinopril. Interrogate pacer to see if the patient has spent a significant amount of time in rapid Afib, which could be contributing to his CHF exacerbation. I am holding his levothyroxine given his iatrogenic hyperthyroidism which is likely also contributing to both rapid rates and CHF. Continue to monitor I/O's, daily weights. Ambulate and assess exercise oxymetry. (2) Paroxysmal atrial fibrillation: Status: Acute Assessment and plan: Appears to be a new finding on this admission, but the patient has a pacemaker which we should be able to interrogate to see how new it is. Given h/o CVA, I think we need to consider switching him from dual antiplatelet therapy to anticoagulation. I have increased his metoprolol. As above - hold levothyroxine. Consult cardiology to help streamline medications. (3) H/O: CVA (cerebrovascular accident): Status: Chronic Assessment and plan: Given new diagnosis of Afib, switch to anticoagulation should be considered. Again, cardiology consulted. (4) Iatrogenic hyperthyroidism: Status: Acute Assessment and plan: As above - hold levothyroxine. (5) Poorly controlled diabetes mellitus: Status: Acute Assessment and plan: With hypoglycemic episodes at home; FBG 77 this am. Decrease long acting insulin. Continue SSI. The patient would benefit from a continuous glucose monitor as outpatient - preferably one with an alarm. Diabetes education consulted. (6) CAD (coronary artery disease): Status: Chronic Assessment and plan: No ACS on this admission. The patient is on aspirin, plavix, metoprolol, imdur. I am adding a low dose of lisinopril. Cardiology is consulted to help decide on antiplatelet/anticoagulation combination. (7) Renal insufficiency: Status: Chronic Assessment and plan: Cr at baseline - continue to monitor as diuresing and adding lisinopril. (8) Hypertension: Status: Chronic Assessment and plan: Hypertensive emergency on presentation likely contributed to acute exacerbation of CHF. At this time, the patient's BPs are well controlled. Will add a small dose of lisinopril. Consider adding aldactone. (9) Anemia: Status: Chronic Assessment and plan: Chronic, normocytic, Mild. Follow up as outpatient. (10) IVETTE (obstructive sleep apnea): Status: Chronic Assessment and plan: Patient is using own CPAP with success. Continue home CPAP. (11) Hypomagnesemia: Status: Resolved Assessment and plan: Recheck in am (12) Ambulatory dysfunction: Status: Chronic Assessment and plan: PT consulted. (13) COVID-19 ruled out by laboratory testing: Status: Ruled-out (14) DVT prophylaxis: Status: Acute Assessment and plan: Lovenox SC (15) Discharge planning issues: Status: Acute Assessment and plan: DNI Expected to be discharge home tomorrow. Subjective Subjective Interval history since last seen: Mr Hinkle feels a lot better. He still reports DOOLEY, but at rest his breathing is at his baseline. He is interested in finding out if he needs oxygen. BG 77 this morning. We discussed how I am decreasing his insulin, given his hypoglycemic events at home. I informed him about possible need to change cardiac medications. I talked about increased risk of stroke with Afib. Denies dizziness, chest pain, nausea, abdominal pain. Requests that I talk to his son. Exam Narrative Exam Narrative: General: Very pleasant middle-aged male, has a facial droop, A&Ox3 HEENT: EOMI, MMM Heart: RRR with an extra beat; no m/r/g Lungs: CTAB Abdomen: soft, obese, nontender, nondistended Extremities: +1 BLE edema Objective Objective Clinical Data: Abnormal lab results 11/09/19 11/09/19 11/10/19 Range/Units 12:25 12:25 07:00 RBC 4.14 L (4.36-5.78) 10^6/uL Hgb 11.8 L (13.5-17.5) g/dL Hct 36.9 L (40.0-50.0) % RDW 16.0 H (11.8-14.1) % Potassium 3.1 L (3.5-5.1) mmol/L Carbon Dioxide 33.7 H (21.0-32.0) mmol/L Anion Gap (3-11) mmol/L Creatinine (0.70-1.30) mg/dL Glucose 205 H D (74-106) mg/dL TSH 0.19 L (0.36-3.74) uIU/mL Free T4 1.81 H (0.76-1.46) ng/dL 11/10/19 Range/Units 07:00 RBC (4.36-5.78) 10^6/uL Hgb (13.5-17.5) g/dL Hct (40.0-50.0) % RDW (11.8-14.1) % Potassium 3.4 L (3.5-5.1) mmol/L Carbon Dioxide 37.5 H (21.0-32.0) mmol/L Anion Gap 2.5 L (3-11) mmol/L Creatinine 1.41 H (0.70-1.30) mg/dL Glucose (74-106) mg/dL TSH (0.36-3.74) uIU/mL Free T4 (0.76-1.46) ng/dL Vital Signs Temperature 36.0 C L 11/10/19 11:22 Temperature Source Tympanic 11/10/19 11:22 Pulse 60 11/10/19 11:22 Pulse Rhythm Regular 11/10/19 04:05 Pulse 69 11/09/19 02:46 Respiratory Rate 20 11/10/19 11:22 Respiratory Effort Non-Labored 11/10/19 04:05 Respiratory Depth Normal 11/10/19 04:05 Respiratory Pattern Tachypnea 11/10/19 04:05 Blood Pressure 130/80 11/10/19 11:22 Blood Pressure Mean 119 11/09/19 02:46 Pulse Oximetry 96 11/10/19 11:22 Oxygen Delivery Method Cpap 11/10/19 11:22 Oxygen Flow Rate 0 11/10/19 07:48 Fraction of Inspired Oxygen (FIO2) 21 11/09/19 20:16 Pain Level 0 11/10/19 11:22 Comment 11/09/19 12:00 Intake & Output 11/09/19 11/09/19 11/10/19 11:59 23:59 11:59 Intake Total Output Total 6985 / 8875 1890 / 8875 800 / 800 Balance -6975 / -8855 -1880 / -8855 -800 / -800 Weight 129.1 kg 124.9 kg Intake: IV Output: Urine 6985 / 8875 1890 / 8875 800 / 800 Other: Urine Color Yellow Yellow Yellow Connell Urine Appearance Clear Clear Clear Urine Odor None None Normal Comment Unable to measure this time. Patient was unable to catch urine with urinal, urinated on the floor. Stool Size Small Stool Characteristics Formed Voiding Methods Urinal Urinal Toilet Laboratory Results WBC 6.46 10^3/uL (4.4-10.8) 11/10/19 07:00 RBC 4.14 10^6/uL (4.36-5.78) L 11/10/19 07:00 Hgb 11.8 g/dL (13.5-17.5) L 11/10/19 07:00 Hct 36.9 % (40.0-50.0) L 11/10/19 07:00 MCV 89.1 fL (80-95) 11/10/19 07:00 MCH 28.5 pg (27.0-33.0) 11/10/19 07:00 MCHC 32.0 % (32.0-36.0) 11/10/19 07:00 RDW 16.0 % (11.8-14.1) H 11/10/19 07:00 Plt Count 248 10^3/uL (130-400) 11/10/19 07:00 MPV 9.6 fL (8.0-11.0) 11/10/19 07:00 Immature Gran % 0.2 11/08/19 22:00 Neutrophils % 56.1 11/08/19 22:00 Lymphocytes % 30.7 11/08/19 22:00 Monocytes % 10.0 11/08/19 22:00 Eosinophils % 2.2 11/08/19 22:00 Basophils % 0.8 11/08/19 22:00 Nucleated RBC % 0 % 11/08/19 22:00 Absolute Neutrophils 3.32 10^3/uL (1.2-6.7) 11/08/19 22:00 Absolute Lymphocytes 1.82 10^3/uL (1.2-3.4) 11/08/19 22:00 Absolute Monocytes 0.59 10^3/uL (0.1-0.8) 11/08/19 22:00 Absolute Eosinophils 0.13 10^3/uL (0.0-0.7) 11/08/19 22:00 Absolute Basophils 0.05 10^3/uL (0.0-0.2) 11/08/19 22:00 D-Dimer 1831 ng/mlFEU (<500) H 11/08/19 22:00 Sodium 142 mmol/L (136-145) 11/10/19 07:00 Potassium 3.4 mmol/L (3.5-5.1) L 11/10/19 07:00 Chloride 102 mmol/L (98-107) 11/10/19 07:00 Carbon Dioxide 37.5 mmol/L (21.0-32.0) H 11/10/19 07:00 Anion Gap 2.5 mmol/L (3-11) L 11/10/19 07:00 BUN 11 mg/dL (7-18) 11/10/19 07:00 Creatinine 1.41 mg/dL (0.70-1.30) H 11/10/19 07:00 Estimated GFR/1.73 m2 50.14 (mL/min/1.73m2) 11/10/19 07:00 Glucose 81 mg/dL (74-106) D 11/10/19 07:00 Calcium 9.2 mg/dL (8.5-10.1) 11/10/19 07:00 Magnesium 2.3 mg/dL (1.8-2.4) 11/10/19 07:00 Total Bilirubin 1.8 mg/dL (0.2-1.0) H 11/08/19 22:00 AST 17 U/L (15-37) 11/08/19 22:00 ALT 21 U/L (16-63) 11/08/19 22:00 Alkaline Phosphatase 114 U/L (46-116) 11/08/19 22:00 Troponin I < 0.05 ng/mL (<0.06) 11/10/19 07:00 NT-Pro-B Natriuret Pep 7358 pg/mL (<300) H 11/08/19 22:00 Total Protein 6.7 g/dL (6.4-8.2) 11/08/19 22:00 Albumin 2.7 g/dL (3.4-5.0) L 11/08/19 22:00 Procalcitonin < 0.1 ng/mL 11/09/19 12:25 TSH 0.19 uIU/mL (0.36-3.74) L 11/09/19 12:25 Free T4 1.81 ng/dL (0.76-1.46) H 11/09/19 12:25 COVID-19 PCR Cancelled 11/08/19 23:54 COVID-19 PCR Negative 11/08/19 23:54 Nasopharyn COVID-19 PCR Cancelled 11/08/19 23:54 Nasopharyn COVID-19 PCR Not Applicable 11/08/19 23:54 Ref Test Perform Site Cancelled 11/08/19 23:54 Ref Test Perform Site [facility] 11/08/19 23:54
--- NOTE | 2019-11-10 12:38 | CCONE_ITS ---
Date of service: 11/10/19 Time of Service: 12:39 Assessment and Plan Assessment and plan (1) HFrEF (heart failure with reduced ejection fraction): Status: Acute (2) Paroxysmal atrial fibrillation: Status: Acute (3) H/O: CVA (cerebrovascular accident): Status: Chronic (4) Poorly controlled diabetes mellitus: Status: Acute Assessment and plan: The patient now has documented paroxysmal atrial flutter/fibrillation. He has a prior history of stroke. His CHADS2-Vasc score is 7 with a 9.6 %/year risk of thromboembolism. Anticoagulation would be strongly recommended I believe that clopidogrel was started back in August at the time of his stroke, as there was no documentation of atrial dysrhythmia at that time At this point I would recommend stopping clopidogrel and using 1 of the newer anticoagulants for stroke prevention. I will defer the choice of anticoagulant to the hospitalist and primary care. It is acknowledged that the patient is a fall risk but he is in a somewhat supervised setting at the [facility] and his risk of recurrent stroke is quite high He should be continued on maintenance diuretic Baby aspirin should be continued lifelong History of Present Illness History of Present Illness Chief Complaint: Difficulty breathing Narrative: This is a 69-year-old male who presented to the hospital because of progressive shortness of breath. He was last hospitalized in August with a stroke at which time his chronic diuretics were discontinued. He was discharged to an assisted living facility where he reportedly became progressively more short of breath, to the point that he came to the emergency room. Exam, diagnostic lab tests and imaging were all consistent with decompensated congestive heart failure. He has been treated with diuretics with improvement. During his evaluation he was noted on EKG and telemetry monitoring to have atrial flutter with 2-1 block. On this basis his beta-roberot has been adjusted Patient has a Biotronik pacemaker which the hospitalist requested be interrogated today The device is functioning appropriately. Battery life is adequate in excess of 9 years the device has noted the dysrhythmia which it The patient calls atrial tachycardia, present only the last several days After his hospitalization in August, the patient underwent 2 weeks of monitoring which did not disclose any atrial fibrillation, atrial flutter or atrial tachycardia the patient reports that his breathing is improving Chart review indicates tentative discharge tomorrow Consults Consult date: 11/10/19 Requesting physician: Risa Fleming Review of Systems All systems reviewed & are unremarkable except as noted in HPI and below PFSH Medical History Anxiety with depression (Acute) Aortic valve replaced Back pain (Acute) CAD (coronary artery disease) COPD (chronic obstructive pulmonary disease) CVA (cerebral vascular accident) (Chronic) Diabetic neuropathy DM (diabetes mellitus) GERD (gastroesophageal reflux disease) (Chronic) H/O: HTN (hypertension) (Acute) Hematuria (Acute) HFrEF (heart failure with reduced ejection fraction) (Acute) History of bloody stools (Acute) HTN (hypertension) Hx of fall (Acute) Hyperlipidemia (Acute) Hypothyroidism Hypothyroidism (acquired) (Acute) Insomnia (Acute) Memory impairment (Acute) Obesity (Chronic) IVETTE (obstructive sleep apnea) IVETTE on CPAP (Chronic) Pacemaker Passive suicidal ideations (Acute) Perforated tympanic membrane (Acute) Polypharmacy (Acute) Proteinuria (Acute) Rash, skin (Acute) Renal insufficiency Sick sinus syndrome (Acute) Sinus node dysfunction (Acute) Tinea cruris (Acute) Surgical History Coronary Artery Bypass Gaft (CABG) Coronary Stent CABGx4 H/O carotid endarterectomy (Acute) Pacemaker Replacement of aortic valve Family History Other Cancer Heart disease Social History Smoking/Tobacco Use Status: Never Alcohol Intake: former Drug use: Never Substance use type: does not use Details: Pt reports no alcohol since his heart attack 1995 Household members: none Housing: other Details: [facility] Number of Children: 2 current occupation: Lives at [facility] [place]. Disabled since . Seatbelt use: always Do you feel safe at home: Yes Do you feel safe in your relationship?: Yes Additional Social history: lives alone, [facility] comes in to assiste pt. Reports safety issue regarding leg giving out. Exam Narrative Exam Narrative: Physical examination was not performed Results Last Vital Signs Temp 36.0 C L 11/10/19 11:22 Pulse 60 11/10/19 11:22 Resp 20 11/10/19 11:22 BP 130/80 08/31/20 11:22 Pulse Ox 96 11/10/19 11:22 Labs Result diagrams: 11/10/19 07:00 11/10/19 07:00 Labs: Laboratory Results - last 24 hr 11/08/19 11/08/19 11/09/19 23:54 23:54 12:25 WBC RBC Hgb Hct MCV MCH MCHC RDW Plt Count MPV Sodium 140 Potassium 3.1 L Chloride 100 Carbon Dioxide 33.7 H Anion Gap 6.3 BUN 11 Creatinine 1.27 Estimated GFR/1.73 m2 56.57 Glucose 205 H D Calcium 8.9 Magnesium Troponin I Procalcitonin TSH Free T4 COVID-19 PCR Cancelled Negative Nasopharyn COVID-19 PCR Cancelled Not Applicable Ref Test Perform Site Cancelled [place] [facility] 11/09/19 11/09/19 11/10/19 12:25 12:25 07:00 WBC 6.46 RBC 4.14 L Hgb 11.8 L Hct 36.9 L MCV 89.1 MCH 28.5 MCHC 32.0 RDW 16.0 H Plt Count 248 MPV 9.6 Sodium Potassium Chloride Carbon Dioxide Anion Gap BUN Creatinine Estimated GFR/1.73 m2 Glucose Calcium Magnesium Troponin I Procalcitonin < 0.1 TSH 0.19 L Free T4 1.81 H COVID-19 PCR Nasopharyn COVID-19 PCR Ref Test Perform Site 11/10/19 07:00 WBC RBC Hgb Hct MCV MCH MCHC RDW Plt Count MPV Sodium 142 Potassium 3.4 L Chloride 102 Carbon Dioxide 37.5 H Anion Gap 2.5 L BUN 11 Creatinine 1.41 H Estimated GFR/1.73 m2 50.14 Glucose 81 D Calcium 9.2 Magnesium 2.3 Troponin I < 0.05 Procalcitonin TSH Free T4 COVID-19 PCR Nasopharyn COVID-19 PCR Ref Test Perform Site
[2019-11-10] MEDS: Lisinopril 5 MG TAB 2.5 MG PO (12:57)
[2019-11-10] MEDS: Furosemide 40 MG TAB PO (15:06)
--- NOTE | 2019-11-10 16:51 | PDOC.CMPRO ---
- If Service Date Differs Date of service: 11/10/19 Time of Service: 16:51 Care Management Progress Note S/O: Sher was resting when CM attempted to meet with him. Per report, he stated that he is feeling better today. Per MD, he may have some medication changes, and will likely be ready for discharge soon. CM will continue to follow. A: Sher is a 69 year old male admitted to [facility] on 11/09/19 with CHF. P: Anticipate Sher will be discharged home when medically cleared by provider with a resumption of services through [place] [facility] and [facility]. Sher would benefit from a placement at an assisted living facility, but this has been discussed with him in the past and he has always opted to return home to his apartment. CM will continue to support Sher and discharge planning considerations.
--- NOTE | 2019-11-10 16:56 | IN_ITS ---
Date of service: 11/10/19 Time of Service: 14:39 PT Notes Visit Reasons: HEART FAILURE WITH REDUCED EJECTION FRACTION Physical Therapy Inpatient Initial Evaluation Date: 11/10/2019 Referring Doctor: Risa Fleming MD PT Orders: PT CONSULT: Limited ability Precautions: Fall. Standard. Activity as tolerated. Patient Profile/Admitting Diagnosis: Sher is a 69-year-old male who presented to the ED on 11/08/2019 with chief complaints of worsening shortness of breath. Patient is diagnosed with heart failure with reduced ejection fraction (EF of 35-40% as of 08/2019), PAF, history of CVA, iatrogenic hyperthyroidism, poorly controlled diabetes mellitus, and ambulatory dysfunction with referral to skilled for therapy services in order to address resulting functional mobility impairments. PMHX: Medical History Anxiety with depression (Acute) Aortic valve replaced Back pain (Acute) CAD (coronary artery disease) COPD (chronic obstructive pulmonary disease) CVA (cerebral vascular accident) (Chronic) Diabetic neuropathy DM (diabetes mellitus) GERD (gastroesophageal reflux disease) (Chronic) H/O: HTN (hypertension) (Acute) Hematuria (Acute) History of bloody stools (Acute) HTN (hypertension) Hx of fall (Acute) Hyperlipidemia (Acute) Hypothyroidism Hypothyroidism (acquired) (Acute) Insomnia (Acute) Memory impairment (Acute) Obesity (Chronic) IVETTE (obstructive sleep apnea) IVETTE on CPAP (Chronic) Pacemaker Passive suicidal ideations (Acute) Perforated tympanic membrane (Acute) Polypharmacy (Acute) Proteinuria (Acute) Rash, skin (Acute) Renal insufficiency Sick sinus syndrome (Acute) Sinus node dysfunction (Acute) Tinea cruris (Acute) Surgical History Coronary Artery Bypass Gaft (CABG) Coronary Stent CABGx4 H/O carotid endarterectomy (Acute) Pacemaker Replacement of aortic valve Social History/Home Situation: Patient lives on the second floor of the [facility]. He states that he has been limited to only doing indoor ambulation using his 4-wheeled walker. He uses a motorized wheelchair for outdoors. He states that his sister continues to help out with any assistance that he needs. Home health nurse comes in once a week to check on him and take his vital signs. Equipment Owned/DME: Motorized wheelchair, 4-wheeled walker Subjective: Agreeable to PT consult. Denies headache, chest pain, and dizziness throughout PT session however reported mild SOB with ambulation activity that subsided with rest. Objective: General Observation: Appears tired. Lips pale. Obese. IV in L UE. TEDS to B legs. Telemetry in place. Mental Status: Alert and oriented x 4 Pain: 2-3/10 in the low back area ROM: Right Upper Extremity: Shoulder Flexion WFL. Shoulder abduction WFL. Elbow flexion WFL. Wrist flexion WFL. Opening and closing of hand WFL. Left Upper Extremity: Shoulder Flexion allows up to 120 degrees. Shoulder abduction allows up to 100 degrees. Elbow flexion WFL. Wrist flexion WFL. Opening and closing of hand WFL. Right Lower Extremity: Hip flexion WFL. Hip abduction WFL. Knee flexion WFL. Ankle dorsiflexion WFL. Ankle plantarflexion WFL. Left Lower Extremity: Hip flexion allows up to 10 degrees beyond 90 while seated at edge of bed. Hip abduction allows to 10 degrees. Knee flexion allows up to 90 degrees. Ankle dorsiflexion allows 10 degrees of dorsiflexion beyond neutral. Ankle plantarflexion WFL. Strength: Right Upper Extremity: Shoulder flexors 4/5. Shoulder abductors 4/5. Elbow flexors 4/5. Elbow extensors 4/5. Sales Program Coordinator strong. Left Upper Extremity: Shoulder flexors 4-/5. Shoulder abductors 4-/5. Elbow flexors 4-/5. Elbow extensors 4-/5. Sales Program Coordinator strong. Right Lower Extremity: Hip flexors 3-/5. Hip abductors 4/5. Knee flexors 4/5. Knee extensors 4/5. Ankle dorsiflexors 3-/5. Ankle plantarflexors 4/5. Left Lower Extremity:Hip flexors 4-/5. Hip abductors 4-/5. Knee flexors 4-/5. Knee extensors 4-/5. Ankle dorsiflexors 4-/5. Ankle plantarflexors 4-/5. Sensation: Intact as to pain and pressure on bilateral lower extremities. Bed Mobility/Transfers: Supine to sit standby assist Sit to supine standby assist Sit to stand standby assist, cues needed for hand placement, requires use of a walker Stand to sit standby assist, cues needed for hand placement, requires use of a walker Bed to chair standby assist, cues needed for hand placement, requires use of a walker Chair to bed standby assist, cues needed for hand placement, requires use of a walker Gait: Patient tolerated level surface ambulation of 250 feet front wheeled walker with contact-guard assist. Vania creased. Step through gait pattern. Decreased vania. Balance: Static Sitting: Normal Dynamic Sitting: Good Static Standing: Fair Dynamic Standing: Fair Special Tests: Mobility Limitations Standardized Measure [facility] 6 clicks Basic Mobility Inpatient Short Form: Raw Score: 22 CMS Score: 21 % deficit Informed Consent/Education: Patient instructed in purpose of PT consult and plan of care. Assessment: Sher is a 69-year-old male who demonstrates functional mobility decline requiring vehicle assistance and use of a front wheeled walker for all mobility performance, decreased activity tolerance, generalized weakness, and guilty with walking due to admitting diagnosis. Sher is a 69-year-old male who presented to the ED on 11/08/2019 with chief complaints of worsening shortness of breath. Patient is diagnosed with heart failure with reduced ejection fraction (EF of 35-40% as of 08/2019), PAF, history of CVA, iatrogenic hyperthyroidism, poorly controlled diabetes mellitus, and ambulatory dysfunction with referral to skilled for therapy services in order to address resulting functional mobility impairments. Patient presents with clinical signs and symptoms consistent with current/admitting diagnoses that have resulted to mobility limitations, gait instability, generalized weakness, and impairment of motor control as demonstrated by the following impairment level findings: 1. Decreased strength to B UE/LE major muscle groups with pre-existing weakness to right UE/LE 2. Impaired sitting/standing balance 3. Impaired activity tolerance 4. Limitation of joint range of motion in BUEs/LE joints Impairments are contributing to the following functional limitations: 1. Dependent bed mobility skills 2. dependent with transfers 3. Inability to safely ambulate without assistive device and physical assistance 4. Increase completion time for mobility ADL performance 5. Increased fall risk 6. Inability to negotiate steps alone safely Patient is assessed as a 25601 moderate complexity based on the following: History: 69-year-old male with impairment level findings, functional limitations, and past medical history as indicated above Examination: Demonstrable impairment in strength, balance, and mobility level with underlying impairments and functional limitations as documented above Presentation:Evolving Decision Makin moderate complexity Goals: Goals X1 week 1. Supine-Sit independent 2. Sit-Supine independent 3. Sit-Stand independent 4. Stand-Sit independent 5. Bed-Chair independent 6. Chair-Bed independent 7. Independent gait on level surface with use of least restrictive device for at least 300 feet without report of pain nor dyspnea 8. Independent stair negotiation while holding onto bilateral rails for at least 10 steps without report of pain nor dyspnea 9. Independent with home exercise program 10. Good static and dynamic standing balance/tolerance Plan of Care/Treatment Plan: 1-2x/day, 7 days/week x 1 week. Plan of care has been reviewed with the [facility] S[facility]TER providing the service under Physical Therapy direction. Initiate Physical Therapy intervention for strengthening, bed mobility, transfers, gait, stairs, balance training, use of assistive device. PT Intervention: Session today consisted of initial physical therapy evaluation as well as education and training on energy conservation techniques as well a sked on safe ability ADL performance using the front-wheeled walker. DISCHARGE RECOMMENDATIONS: Patient will benefit from prison facility placement for continued skilled physical therapy services in order to progress mobility level, strength, and balance in preparation for a safe discharge to home. TREATMENT CODE/TIME: 62231 x 26 minutes beginning at 14:39 PM. Thank you very much for this referral. Melissa Cavazos PT, DPT, CLT [facility] [place], [place]
--- NOTE | 2019-11-10 18:29 | W.PODCONSULT ---
Date of service: 11/10/19 Time of Service: 18:29 History of Present Illness History of Present Illness Chief Complaint: Fungal toenails Narrative: 69-year-old male, well-known to me from office based practice, with complaints of tender, overgrown toenails causing discomfort. He is a poorly controlled diabetic at risk for complications. He has missed several office appointments previously. He is seen at bedside resting comfortably and indicates he is feeling much better since his admission through the emergency department yesterday. [facility] Medical History Anxiety with depression (Acute) Aortic valve replaced Back pain (Acute) CAD (coronary artery disease) COPD (chronic obstructive pulmonary disease) CVA (cerebral vascular accident) (Chronic) Diabetic neuropathy DM (diabetes mellitus) GERD (gastroesophageal reflux disease) (Chronic) H/O: HTN (hypertension) (Acute) Hematuria (Acute) HFrEF (heart failure with reduced ejection fraction) (Acute) History of bloody stools (Acute) HTN (hypertension) Hx of fall (Acute) Hyperlipidemia (Acute) Hypothyroidism Hypothyroidism (acquired) (Acute) Insomnia (Acute) Memory impairment (Acute) Obesity (Chronic) IVETTE (obstructive sleep apnea) IVETTE on CPAP (Chronic) Pacemaker Paroxysmal atrial fibrillation (Acute) Passive suicidal ideations (Acute) Perforated tympanic membrane (Acute) Polypharmacy (Acute) Proteinuria (Acute) Rash, skin (Acute) Renal insufficiency Sick sinus syndrome (Acute) Sinus node dysfunction (Acute) Tinea cruris (Acute) Surgical History Coronary Artery Bypass Gaft (CABG) Coronary Stent CABGx4 H/O carotid endarterectomy (Acute) Pacemaker Replacement of aortic valve Family History Other Cancer Heart disease Social History Smoking/Tobacco Use Status: Never Alcohol Intake: former Drug use: Never Substance use type: does not use Details: Pt reports no alcohol since his heart attack 1995 Household members: none Housing: other Details: [facility] Number of Children: 2 current occupation: Lives at [facility]. Disabled since . Seatbelt use: always Do you feel safe at home: Yes Do you feel safe in your relationship?: Yes Additional Social history: lives alone, area [facility] comes in to assiste pt. Reports safety issue regarding leg giving out. Exam Narrative Exam Narrative: Sher is awake, alert resting comfortably in his bed. Peripheral pulses are diminished but his feet are warm to the touch. Capillary refill is under 3 seconds to all toes. Trace peripheral edema or is noted bilaterally. Calves are soft to palpation. No findings of DVT. Skin is thin with fungal changes noted affecting all toenails. The nails are heavy, yellowed, thick, dystrophic, hypertrophic, elongated and in need of debridement. Both hallux nails show distal lysis. There is heavy subungual debris with periungual tenderness but no drainage or secondary signs of infection. Groups of 5 out of 5 bilaterally although deconditioned Skeletal exam appeared grossly benign no gross deformities joint inflammations noted. Neurologically he has diminished sensation in his feet consistent with a diabetic type neuropathy. Impression: Onychomycosis symptomatic Poorly controlled diabetes with peripheral neuropathy Plan: Mechanically and electrically debrided all toenails 1 through 5 bilaterally to patient tolerance. Gently curettaged all debris free of the nail grooves. The right hallux nail was loose and approximately 85% of the nail plate was removed atraumatically. The underlying nail beds are dry with heavy subungual debris noted. I did encourage Sher to make follow-up appointments upon discharge to maintain proper diabetic foot care fungal nail care. We did discuss the need for better diabetic control as his last hemoglobin A1c is reported as 21 August 2019. Thank you for the consultation. Results Last Vital Signs Temp 35.5 C L 11/10/19 15:39 Pulse 60 11/10/19 15:39 Resp 16 11/10/19 15:39 BP 97/52 L 11/10/19 15:39 Pulse Ox 95 11/10/19 15:39 Labs Result diagrams: 11/10/19 07:00 11/10/19 07:00 Labs: Laboratory Results - last 24 hr 11/08/19 11/10/19 11/10/19 23:54 07:00 07:00 WBC 6.46 RBC 4.14 L Hgb 11.8 L Hct 36.9 L MCV 89.1 MCH 28.5 MCHC 32.0 RDW 16.0 H Plt Count 248 MPV 9.6 Sodium 142 Potassium 3.4 L Chloride 102 Carbon Dioxide 37.5 H Anion Gap 2.5 L BUN 11 Creatinine 1.41 H Estimated GFR/1.73 m2 50.14 Glucose 81 D Calcium 9.2 Magnesium 2.3 Troponin I < 0.05 COVID-19 PCR Negative Nasopharyn COVID-19 PCR Not Applicable Ref Test Perform Site [place] [facility]
[2019-11-10] MEDS: Apixaban 5 MG TAB PO (19:25)
[2019-11-10] MEDS: Atorvastatin 40 MG TAB 80 MG PO (21:42)
[2019-11-10] MEDS: Gabapentin 400 MG CAP PO (21:42)
[2019-11-10] MEDS: rOPINIRole 1 MG TAB 2 MG PO (21:42)
[2019-11-11 03:49] VITALS: BP 92/50; PULSE 60; RESP 18; TEMP 36; O2SAT 96
[2019-11-11 07:25] VITALS: BP 105/52; PULSE 60; RESP 18; TEMP 36.4; O2SAT 98
[2019-11-11 07:37] LABS: Abs Immature Grans 0.01 10^3/uL (0.0-0.06); Absolute Basophil Count 0.05 10^3/uL (0.0-0.2); Absolute Eosinophil Count 0.19 10^3/uL (0.0-0.7); Absolute Lymphocyte Count 1.88 10^3/uL (1.2-3.4); Absolute Monocyte Count 0.59 10^3/uL (0.1-0.8); Basophils % 0.8; Eosinophils % 3.2; HCT 34.7 % (40.0-50.0); Immature Grans % 0.2; Lymphocytes % 31.8; MCH 28.1 pg (27.0-33.0); MCHC 31.7 % (32.0-36.0); MCV 88.7 fL (80-95); MPV 9.6 fL (8.0-11.0); Nucleated RBC 0 %; Platelet Count 213 10^3/uL (130-400); RBC 3.91 10^6/uL (4.36-5.78); RDW 16.3 % (11.8-14.1); RDW-SD 53.2 fL; WBC 5.92 10^3/uL (4.4-10.8)
[2019-11-11 07:52] LABS: Anion Gap 5.2 mmol/L (3-11); BUN 16 mg/dL (7-18); CO2 32.8 mmol/L (21.0-32.0); CREATININE 1.62 mg/dL (0.70-1.30); Calcium 8.9 mg/dL (8.5-10.1); Chloride 101 mmol/L (98-107); Estimated GFR 42.71 (mL/min/1.73m2); Glucose 158 mg/dL (74-106); Magnesium 2.1 mg/dL (1.8-2.4); Potassium 4.2 mmol/L (3.5-5.1); Sodium 139 mmol/L (136-145)
[2019-11-11] MEDS: Budesonide/Formoterol 80/4.5 10.2 GM 120 PUFF INH IH (08:09)
[2019-11-11] MEDS: Isosorbide Mononitrate 60 MG TABCR 120 MG PO (08:12)
[2019-11-11] MEDS: Magnesium Chloride 64 MG TABCR PO (08:12)
[2019-11-11] MEDS: Polyethylene Glycol 3350 17 GM PACKET PO (08:12)
[2019-11-11] MEDS: Omeprazole 20 MG CAPCR 40 MG PO (08:12)
[2019-11-11] MEDS: Ezetimibe 10 MG TAB PO (08:12)
[2019-11-11] MEDS: Tamsulosin 0.4 MG CAPCR PO (08:13)
[2019-11-11] MEDS: Aspirin E.C. 81 MG TABEC PO (08:13)
[2019-11-11] MEDS: Furosemide 40 MG TAB PO (08:13)
[2019-11-11] MEDS: Mirtazapine 15 MG TAB PO (08:13)
[2019-11-11] MEDS: Apixaban 5 MG TAB PO (08:13)
[2019-11-11] MEDS: FLUoxetine 20 MG CAP PO (08:13)
[2019-11-11] MEDS: Insulin Aspart 300 UNITS/3 ML PEN SC ×2 (08:14→11:54)
[2019-11-11] MEDS: Fluticasone NASAL SPRAY 16 GM BTL NS (08:14)
[2019-11-11 11:13] VITALS: BP 112/66; PULSE 64; RESP 18; TEMP 35.1; O2SAT 93
--- NOTE | 2019-11-11 11:43 | DSE_ITS ---
Date of service: 11/11/19 Time of Service: 11:43 DS: Diagnosis Discharge Diagnosis (1) HFrEF (heart failure with reduced ejection fraction): Status: Acute Asessment and Plan: Acute on chronic, EF 35-40%, due to ICMO. (2) Hypertensive emergency: Status: Resolved (3) Paroxysmal atrial fibrillation: Status: Acute Asessment and Plan: new diagnosis Started on eliquis on this admission (4) H/O: CVA (cerebrovascular accident): Status: Chronic (5) Iatrogenic hyperthyroidism: Status: Acute Asessment and Plan: Likely from excessive dose of levothyroxine, which is being held on discharge. (6) Poorly controlled diabetes mellitus: Status: Chronic Asessment and Plan: with frequent hypoglycemic episodes (7) TIN (acute kidney injury): Status: Acute (8) Hypomagnesemia: Status: Resolved (9) Anemia: Status: Chronic (10) Hypokalemia: Status: Resolved (11) Left hemiparesis: Status: Acute (12) Sick sinus syndrome: Status: Chronic Asessment and Plan: s/p pacemaker (13) CAD (coronary artery disease): Status: Chronic (14) H/O aortic valve replacement: Status: Acute (15) IVETTE (obstructive sleep apnea): Status: Chronic (16) Obesity, morbid, BMI 50 or higher: Status: Acute (17) Ambulatory dysfunction: Status: Acute (18) COVID-19 ruled out by laboratory testing: Status: Ruled-out Discharge Plan Disposition Patient Disposition: HOME W/HOME HEALTH SERVICE Condition: Stable Discharge Details Chief Complaint: SOB Clinical Impression: CHF (congestive heart failure) Reason For Visit: HEART FAILURE WITH REDUCED EJECTION FRACTION Admit Date/Time: 11/09/19 01:59 Admit Provider: Abdullahi Gilliland Attending Provider: Abdullahi Gilliland Primary Care Provider: ALEXUS BROWN ED Provider: Jaylen España [facility] Course Hospital Course: Mr Hinkle is a 69 year old male with PMHx of CAD, chronic systolic CHF with EF of 35-40%, prior CVA (on ETHAN at the time of presentation), as well as hypertension, and poorly controlled insulin-dependent diabetes mellitus type II with frequent hypoglycemic episodes, who was admitted to [facility] hospitalist service on 11/09/2019 with acute on chronic systolic CHF in setting of hypertensive emergency. Additionally, on this admission, the patient was also found to have new onset Atrial fibrillation/flutter with somewhat rapid rate. The patient was diuresed, continued on CPAP. His beat roberto dose was increased. He was switched from ETHAN to combination of baby asa and eliquis given his CHADsVASC score of 7. COVID-19 was ruled out. He was seen in consultation by cardiology and will need to follow up with them as outpatient. He is being discharged home on lasix 20 mg PO daily with instructions on daily weight checks and home health nursing to help manage this at home. He did not tolerate addition of even 2.5 mg of lisinopril with sudden drop in BPs. He was evaluated by physical therapy and is felt to be safe to be discharged home with home health PT. It does appear that the patient has an appointment in [place] tomorrow to get his wheelchair, which should make it safer for him to take blood thinners. Of big concern on this admission is patient's diabetes management. The patient describes numerous hypoglycemic episodes at home which we have seen on this admission as well. The patient's long acting insulin is being decreased to 20 units daily and his meal time insulin is being decreased to 5-7 units with meals, depending on carbohydrate content. The patient is being referred to diabetes education and would greatly benefit from having a continuous glucose monitor with hyperglycemia and hypoglycemia alarms at home since he lives alone. The patient was seen Care for patient as well as completion of his discharge summary on day of discharge took 45 minutes. Home Meds and New Rx's Prescriptions: New furosemide 40 mg Tablet 20 mg PO DAILY Qty: 14 RF: 0 Eliquis 5 mg Tablet 5 mg PO BID Qty: 60 RF: 0 Continued mirtazapine 15 mg tablet 15 mg PO DAILY RF: 0 ProAir RespiClick 90 MCG aerosol powdr breath activated 90 mcg Inhalation Q4H PRN PRNRF: 0 ketorolac 0.4 % drops 1 drp OP QID RF: 0 (DME) nebulizers Misc See Rx Instructions .ROUTE .MEDSUPPLY Qty: 1 RF: 0 (DME) oxygen-air delivery systems Device See Rx Instructions .ROUTE .MEDSUPPLY Qty: 1 RF: 0 ezetimibe [Zetia] 10 MG tablet 10 mg PO QAM RF: 0 isosorbide mononitrate 120 MG tablet extended release 24 hr 120 mg PO QAM RF: 0 atorvastatin [Lipitor] 80 MG tablet 80 mg PO HS RF: 0 ropinirole 2 MG tablet 2 mg PO HS RF: 0 multivitamin [Daily Multi-Vitamin] 1 EACH tablet 1 tab PO QAM RF: 0 tamsulosin 0.4 mg Capsule 0.4 mg PO DAILY RF: 0 omeprazole 20 MG capsule,delayed release(DR/EC) 40 mg PO DAILY RF: 0 aspirin 81 mg Tablet,Delayed Release (Dr/Ec) 81 mg PO DAILY Qty: 0 RF: 0 ferrous sulfate 325 mg (65 mg iron) Tablet 325 mg PO BID Qty: 0 RF: 0 gabapentin 300 mg Capsule 400 mg PO HS RF: 0 Slow-Mag 71.5 mg Tablet,Delayed Release (Dr/Ec) 71.5 mg PO DAILY RF: 0 polyethylene glycol 3350 [Miralax] 17 gram Powder In Packet 17 g PO DAILY RF: 0 nitroglycerin [Nitrostat] 0.4 mg Tablet, Sublingual 0.4 mg sublingual PRN PRNRF: 0 fluoxetine 20 mg Capsule 20 mg PO DAILY RF: 0 cholecalciferol (vitamin D3) [Vitamin D3] 25 mcg (1,000 unit) Tablet 1,000 unit PO DAILY RF: 0 fluticasone propionate [Flonase Allergy Relief] 50 mcg/actuation [place],Suspension 2 spray INTRANASAL DAILY RF: 0 budesonide-formoterol [Symbicort] 80-4.5 mcg/actuation Hfa Aerosol Inhaler 2 puff INHALATION BID RF: 0 Changed metoprolol succinate 100 MG tablet extended release 24 hr 150 mg PO DAILY Qty: 45 RF: 0 Levemir FlexTouch U-100 Insuln 100 unit/mL (3 mL) insulin pen 20 unit SC DAILY Qty: 0 RF: 0 insulin aspart U-100 [Novolog Flexpen U-100 Insulin] 100 UNIT/1 ML insulin pen 5 - 7 unit subcut AC Qty: 0 RF: 0 Discontinued insulin aspart U-100 [Novolog Flexpen U-100 Insulin] 100 UNIT/1 ML insulin pen See Rx Instructions .ROUTE .COMPLEX RF: 0 clopidogrel [Plavix] 75 mg tablet 75 mg PO DAILY RF: 0 levothyroxine 175 mcg Tablet 175 mcg PO DAILY RF: 0 Discharge Instructions Instructions: Furosemide (By mouth), Apixaban (By mouth), Heart Failure (DC), A-fib (Atrial Fibrillation) (DC) Additional Instructions: Return to the hospital with any fever, bleeding, chest pain, shortness of breath. Follow up with your PCP in 1-2 weeks and with cardiology as below. Weigh yourself daily. Inform your PCP if you have gained more than 3 lbs in 3 days. Care Plan Goals: Home with resumption of home health RN and PT. Recommend addition of OT. Home health to check BMP and magnesium on 11/18/2019 - results to Alexus Brown NP. Stand Alone Forms: Nursing Discharge Form Referrals: Leonardo Murphy [PARKING ENFORCEMENT TECHNICIAN] - (Would probably benefit from a CGM with hypoglycemia alarms. ) Dameon Ivy MD [MD CONSULTING PHYSICIAN] - 11/20/19 2:20 pm ALEXUS BROWN NP [Primary Care Provider] - Activity:: Activity as Tolerated Equipment/Supplies:: No Equipment Needed Diet:: carb consistent low sodium Discharge Orders Discharge Orders: Discharge Order (Routine); Ordered 11/11/19 Ordered By: Risa Fleming DS: Summary Status at Discharge Functional status at discharge: uses cane/walker Overall status at discharge: patient is back to baseline Mental Status: mental status grossly normal Speech and Movement: other (baseline dysarthria/facial droop, L-sided weakness) Mood: congruent mood Affect: normal affect Exam Narrative Exam Narrative: General: Very pleasant middle-aged male, has a facial droop, A&Ox3 HEENT: EOMI, MMM Heart: RRR with an extra beat; no m/r/g Lungs: Diminished breath sounds B Abdomen: soft, obese, nontender, nondistended Extremities: +1 BLE edema, L-sided weakness Psych Mental Status: mental status grossly normal Speech and Movement: other (baseline dysarthria/facial droop, L-sided weakness) Mood: congruent mood Affect: normal affect DS: Data Vitals/I&O Vitals and I&O: Vital Signs Temperature 35.1 C L 11/11/19 11:13 Temperature Source Tympanic 11/11/19 07:25 Pulse 64 11/11/19 11:13 Pulse Rhythm Regular 11/11/19 11:00 Pulse 69 11/09/19 02:46 Respiratory Rate 18 11/11/19 11:13 Respiratory Effort 11/11/19 11:00 Respiratory Depth Normal 11/11/19 11:00 Respiratory Pattern Normal 11/11/19 11:00 Blood Pressure 112/66 11/11/19 11:13 Blood Pressure Mean 119 11/09/19 02:46 Pulse Oximetry 93 L 11/11/19 11:13 Oxygen Delivery Method Room Air 11/11/19 11:13 Oxygen Flow Rate 0 11/11/19 11:13 Fraction of Inspired Oxygen (FIO2) 21 11/11/19 09:11 Pain Level 0 11/11/19 11:13 Comment 11/09/19 12:00 Intake & Output 11/10/19 11/10/19 11/11/19 11:59 23:59 11:59 Intake Total 200 / 200 240 / 240 Output Total 800 / 1800 1000 / 1800 Balance -800 / -1600 -800 / -1600 240 / 240 Weight 124.9 kg 122.7 kg Intake: Oral 200 / 200 240 / 240 Output: Urine 800 / 1800 1000 / 1800 Other: Urine Color Yellow Yellow [place] Urine Appearance Clear Clear Urine Odor Normal None Voiding Methods Toilet Toilet Data Completed and Pending Completed studies during hospitalization [Text1]: CXR 11/08/2019: Right basilar infiltrate which may represent atelectasis or pneumonia. CTA chest 11/08/2019: 1. No evidence of pulmonary embolism, thoracic aortic dissection or aneurysm. 2. Moderate bilateral pleural effusions with subjacent infiltrates. Labs on day of discharge: Labs from last 24 hours 11/11/19 11/11/19 07:22 07:22 WBC 5.92 RBC 3.91 L Hgb 11.0 L Hct 34.7 L MCV 88.7 MCH 28.1 MCHC 31.7 L RDW 16.3 H Plt Count 213 MPV 9.6 Immature Gran % 0.2 Neutrophils % 54.0 Lymphocytes % 31.8 Monocytes % 10.0 Eosinophils % 3.2 Basophils % 0.8 Nucleated RBC % 0 Absolute Neutrophils 3.20 Absolute Lymphocytes 1.88 Absolute Monocytes 0.59 Absolute Eosinophils 0.19 Absolute Basophils 0.05 Sodium 139 Potassium 4.2 D Chloride 101 Carbon Dioxide 32.8 H Anion Gap 5.2 BUN 16 Creatinine 1.62 H Estimated GFR/1.73 m2 42.71 Glucose 158 H D Calcium 8.9 Magnesium 2.1 [facility] Medical History (Updated 11/11/19 @ 11:53 by Risa Fleming MD) Anxiety with depression (Acute) Aortic valve replaced Back pain (Acute) CAD (coronary artery disease) COPD (chronic obstructive pulmonary disease) CVA (cerebral vascular accident) (Chronic) Diabetic neuropathy DM (diabetes mellitus) GERD (gastroesophageal reflux disease) (Chronic) H/O: HTN (hypertension) (Acute) Hematuria (Acute) HFrEF (heart failure with reduced ejection fraction) (Acute) History of bloody stools (Acute) HTN (hypertension) Hx of fall (Acute) Hyperlipidemia (Acute) Hypothyroidism Hypothyroidism (acquired) (Acute) Insomnia (Acute) Memory impairment (Acute) Obesity (Chronic) IVETTE (obstructive sleep apnea) IVETTE on CPAP (Chronic) Pacemaker Paroxysmal atrial fibrillation (Acute) Passive suicidal ideations (Acute) Perforated tympanic membrane (Acute) Polypharmacy (Acute) Proteinuria (Acute) Rash, skin (Acute) Renal insufficiency Sick sinus syndrome (Chronic) Sinus node dysfunction (Acute) Tinea cruris (Acute) Surgical History Coronary Artery Bypass Gaft (CABG) Coronary Stent CABGx4 H/O carotid endarterectomy (Acute) Pacemaker Replacement of aortic valve Family History Other Cancer Heart disease Social History Smoking/Tobacco Use Status: Never Alcohol Intake: former Drug use: Never Substance use type: does not use Details: Pt reports no alcohol since his heart attack 1995 Household members: none Housing: other Details: [facility] Number of Children: 2 current occupation: Lives at [employer]. Disabled since . Seatbelt use: always Do you feel safe at home: Yes Do you feel safe in your relationship?: Yes Additional Social history: lives alone, area on aging comes in to assiste pt. Reports safety issue regarding leg giving out.
--- NOTE | 2019-11-11 12:36 | PT.INTREAT ---
Date of service: 11/11/19 Time of Service: 10:00 PT Notes Visit Reasons: HEART FAILURE WITH REDUCED EJECTION FRACTION Inpatient Physical Therapy Treatment Note [facility] Date: 11/11/2019 PRECAUTIONS: Fall SUBJECTIVE: Sher states that he is feeling good today, he reports that he hopes to be discharged to home later today. He also reports that he has ambulated to the bathroom and toileted himself today. OBJECTIVE: PAIN: No c/o pain BED MOBILITY/TRANSFERS Supine-sit: I Sit-supine: I Sit-stand: S Stand-sit: S GAIT Assistive Device: FWW Weight bearing: Full Assist: SBA Distance: 300' Deviation: Steady gait and pace ASSESSMENT: Patient completed PT session without complaint. He was observed ambulating with steady gait and pace utilizing FWW during gait training. PLAN: Recommend PT TREATMENT CODE/TIME: 10 minutes; 82905
--- NOTE | 2019-11-11 16:08 | PDOC.CMDIS ---
- If Service Date Differs Date of service: 11/11/19 Time of Service: 16:08 LACE Index Scoring Tool - Questions: Length of Stay (in days): 3 Acuity (Admit via E.D.?): Yes Comorbidities: Cerebrovascular Disease, Diabetes w/o Complication, Congestive Heart Failure, Chronic Pulmonary Disease, Mild Liver/Renal Disease E.D. Visits: 13 - Answers: Total Score: 15 Risk of Readmission: High Risk Care Management Discharge Reason for Hospitalization: Heart failure with reduced ejection fraction. Discharge Plan: Sher will return home with a resumption of HH RN, PT. CM coordinated a ride through [facility], stopping at [facility] to berry picker his prescriptions. He will follow up with his PCP and discharge plan of care. He is happy to be going home. Patient/Family Education Needs: Review discharge instructions regarding activity levels and medications, discussion of self care needs including ask me three. Services Needed at Discharge: Home Health Care Services (HH RN, PT), Transportation ([facility])
--- NOTE | 2019-11-14 18:30 | PT.INDS ---
Date of service: 11/14/19 PT Notes Visit Reasons: HEART FAILURE WITH REDUCED EJECTION FRACTION Inpatient Physical Therapy Discharge Summary Dates: 11/14/2019 Dates of Service: 11/10/2019 through 11/11/2019 This is a clinical summary of care provided on the duration of dates listed above. No charge was made in the completion of this documentation. Physical Therapy Inpatient Initial Evaluation Referring Doctor: Risa Fleming MD PT Orders: PT CONSULT: Limited ability Precautions: Fall. Standard. Activity as tolerated. Patient Profile/Admitting Diagnosis: Sher is a 69-year-old male who presented to the ED on 11/08/2019 with chief complaints of worsening shortness of breath. Patient is diagnosed with heart failure with reduced ejection fraction (EF of 35-40% as of 08/2019), PAF, history of CVA, iatrogenic hyperthyroidism, poorly controlled diabetes mellitus, and ambulatory dysfunction with referral to skilled for therapy services in order to address resulting functional mobility impairments. PMHX: Medical History Anxiety with depression (Acute) Aortic valve replaced Back pain (Acute) CAD (coronary artery disease) COPD (chronic obstructive pulmonary disease) CVA (cerebral vascular accident) (Chronic) Diabetic neuropathy DM (diabetes mellitus) GERD (gastroesophageal reflux disease) (Chronic) H/O: HTN (hypertension) (Acute) Hematuria (Acute) History of bloody stools (Acute) HTN (hypertension) Hx of fall (Acute) Hyperlipidemia (Acute) Hypothyroidism Hypothyroidism (acquired) (Acute) Insomnia (Acute) Memory impairment (Acute) Obesity (Chronic) IVETTE (obstructive sleep apnea) IVETTE on CPAP (Chronic) Pacemaker Passive suicidal ideations (Acute) Perforated tympanic membrane (Acute) Polypharmacy (Acute) Proteinuria (Acute) Rash, skin (Acute) Renal insufficiency Sick sinus syndrome (Acute) Sinus node dysfunction (Acute) Tinea cruris (Acute) Surgical History Coronary Artery Bypass Gaft (CABG) Coronary Stent CABGx4 H/O carotid endarterectomy (Acute) Pacemaker Replacement of aortic valve Social History/Home Situation: Patient lives on the second floor of the [facility]. He states that he has been limited to only doing indoor ambulation using his 4-wheeled walker. He uses a motorized wheelchair for outdoors. He states that his sister continues to help out with any assistance that he needs. Home health nurse comes in once a week to check on him and take his vital signs. Equipment Owned/DME: Motorized wheelchair, 4-wheeled walker Subjective: NT. See most recent HOME CHILD CARE PROVIDER notes. Objective: General Observation: NT. See most recent HOME CHILD CARE PROVIDER notes. Mental Status: NT. See most recent HOME CHILD CARE PROVIDER notes. Pain: NT. See most recent HOME CHILD CARE PROVIDER notes. ROM: Right Upper Extremity: Shoulder Flexion WFL. Shoulder abduction WFL. Elbow flexion WFL. Wrist flexion WFL. Opening and closing of hand WFL. Left Upper Extremity: Shoulder Flexion allows up to 120 degrees. Shoulder abduction allows up to 100 degrees. Elbow flexion WFL. Wrist flexion WFL. Opening and closing of hand WFL. Right Lower Extremity: Hip flexion WFL. Hip abduction WFL. Knee flexion WFL. Ankle dorsiflexion WFL. Ankle plantarflexion WFL. Left Lower Extremity: Hip flexion allows up to 10 degrees beyond 90 while seated at edge of bed. Hip abduction allows to 10 degrees. Knee flexion allows up to 90 degrees. Ankle dorsiflexion allows 10 degrees of dorsiflexion beyond neutral. Ankle plantarflexion WFL. Strength: Right Upper Extremity: Shoulder flexors 4/5. Shoulder abductors 4/5. Elbow flexors 4/5. Elbow extensors 4/5. Fur Mixer strong. Left Upper Extremity: Shoulder flexors 4-/5. Shoulder abductors 4-/5. Elbow flexors 4-/5. Elbow extensors 4-/5. Fur Mixer strong. Right Lower Extremity: Hip flexors 3-/5. Hip abductors 4/5. Knee flexors 4/5. Knee extensors 4/5. Ankle dorsiflexors 3-/5. Ankle plantarflexors 4/5. Left Lower Extremity:Hip flexors 4-/5. Hip abductors 4-/5. Knee flexors 4-/5. Knee extensors 4-/5. Ankle dorsiflexors 4-/5. Ankle plantarflexors 4-/5. Sensation: Intact as to pain and pressure on bilateral lower extremities. Bed Mobility/Transfers: Supine to sit independent Sit to supine independent Sit to stand supervision Stand to sit supervision Bed to chair supervision Chair to bed supervision Gait: Patient tolerated level surface ambulation of 300 SBA feet front wheeled walker with stand by assist. Balance: Static Sitting: Normal Dynamic Sitting: Good Static Standing: Fair Dynamic Standing: Fair Assessment: Sher demonstrates significant functional mobility outcomes during this episode of care. He is a 69-year-old male who demonstrates functional mobility decline requiring vehicle assistance and use of a front wheeled walker for all mobility performance, decreased activity tolerance, generalized weakness, and guilty with walking due to admitting diagnosis. Sher is a 69-year-old male who presented to the ED on 11/08/2019 with chief complaints of worsening shortness of breath. Patient is diagnosed with heart failure with reduced ejection fraction (EF of 35-40% as of 08/2019), PAF, history of CVA, iatrogenic hyperthyroidism, poorly controlled diabetes mellitus, and ambulatory dysfunction. Goals: Goals X1 week 1. Supine-Sit independent MET 2. Sit-Supine independent MET 3. Sit-Stand independent NOT MET 4. Stand-Sit independent NOT MET 5. Bed-Chair independent NOT MET 6. Chair-Bed independent NOT MET 7. Independent gait on level surface with use of least restrictive device for at least 300 feet without report of pain nor dyspnea NOT MET 8. Independent stair negotiation while holding onto bilateral rails for at least 10 steps without report of pain nor dyspnea NOT MET 9. Independent with home exercise program NOT MET 10. Good static and dynamic standing balance/tolerance NOT MET DISCHARGE RECOMMENDATIONS: Patient will benefit from fdc facility placement for continued skilled physical therapy services in order to progress mobility level, strength, and balance in preparation for a safe discharge to home. TREATMENT CODE/TIME: IN Thank you very much for this referral. Melissa Cavazos PT, DPT, CLT [facility] [place], [place]
== END 2019-11-11 13:01 | disposition home health service (06) | DRG 291 ==
LOC: ER 11-09 02:06 → MS 11-09 04:00
PROVIDERS: Internal Medicine; Admitting Provider Family Medicine; Emergency Provider Emergency Medicine; PCP Registered Nurse; Visit Provider Family Medicine
DX: I13.0 Hypertensive heart and chronic kidney disease with heart failure and stage 1 through stage 4 chronic kidney disease, or unspecified chronic kidney disease (principal); I50.23 Acute on chronic systolic (congestive) heart failure; Z68.42 Body mass index [BMI] 45.0-49.9, adult; N17.9 Acute kidney failure, unspecified; I25.10 Atherosclerotic heart disease of native coronary artery without angina pectoris; J44.9 Chronic obstructive pulmonary disease, unspecified; E11.40 Type 2 diabetes mellitus with diabetic neuropathy, unspecified; K21.9 Gastro-esophageal reflux disease without esophagitis; E78.5 Hyperlipidemia, unspecified; E03.9 Hypothyroidism, unspecified; G47.00 Insomnia, unspecified; Z95.2 Presence of prosthetic heart valve; Z79.4 Long term (current) use of insulin; E66.9 Obesity, unspecified; G47.33 Obstructive sleep apnea (adult) (pediatric); Z95.0 Presence of cardiac pacemaker; Z95.5 Presence of coronary angioplasty implant and graft; Z95.1 Presence of aortocoronary bypass graft; Z86.73 Personal history of transient ischemic attack (TIA), and cerebral infarction without residual deficits; E11.65 Type 2 diabetes mellitus with hyperglycemia; D64.9 Anemia, unspecified; E83.42 Hypomagnesemia; E11.22 Type 2 diabetes mellitus with diabetic chronic kidney disease; N18.9 Chronic kidney disease, unspecified; Z91.81 History of falling; I16.0 Hypertensive urgency; Z11.59 Encounter for screening for other viral diseases; I48.0 Paroxysmal atrial fibrillation; E05.80 Other thyrotoxicosis without thyrotoxic crisis or storm; R26.2 Difficulty in walking, not elsewhere classified; B35.1 Tinea unguium; T38.1X5A Adverse effect of thyroid hormones and substitutes, initial encounter
CPT/HCPCS: 36415; 71275; 80048; 80053; 84145; 85027; 93005; 94618; 94640; 96374; 97162; 97530; 99222; 99233; 99239; 99252; 99285; NC; U0003; 71045; 83735; 83880; 84439; 84443; 84484; 85025; 85379; 93010; J1644; J1940; J3490

== ENCOUNTER → 2019-11-10 10:42 | Outpatient (BNVA) | payer OTHER, MEDICAID, SELFPAY | PROVIDERS: PCP Registered Nurse; Referring Provider Registered Nurse; Visit Provider Internal Medicine Cardiovascular Disease | DX: R69 Illness, unspecified (principal) ==

== ENCOUNTER → 2019-11-13 09:47 | Outpatient (BNVA) | payer OTHER, MEDICAID, SELFPAY | PROVIDERS: PCP Registered Nurse; Referring Provider Registered Nurse; Visit Provider Nurse Practitioner Gerontology | DX: R31.29 Other microscopic hematuria (principal); E11.9 Type 2 diabetes mellitus without complications; I10 Essential (primary) hypertension; J44.9 Chronic obstructive pulmonary disease, unspecified; Z79.4 Long term (current) use of insulin; R35.0 Frequency of micturition; R39.15 Urgency of urination; N40.0 Benign prostatic hyperplasia without lower urinary tract symptoms | CPT/HCPCS: 99213 ==

== ENCOUNTER 2019-11-18 15:54 | Outpatient (REF) | payer OTHER, MEDICAID, SELFPAY ==
[2019-11-18 14:05] LABS: Anion Gap 7.1 mmol/L (3-11); BUN 24 mg/dL (7-18); CO2 30.9 mmol/L (21.0-32.0); Calcium 9.1 mg/dL (8.5-10.1); Chloride 94 mmol/L (98-107); Estimated GFR 33.49 (mL/min/1.73m2); Magnesium 1.5 mg/dL (1.8-2.4); Potassium 4.4 mmol/L (3.5-5.1); Sodium 132 mmol/L (136-145)
[2019-11-18 14:09] LABS: Glucose 529 mg/dL (74-106)
== END 2019-11-18 16:14 ==
LOC: LBN 15:54
PROVIDERS: PCP Registered Nurse; Visit Provider Family Medicine
DX: I10 Essential (primary) hypertension (principal); I69.391 Dysphagia following cerebral infarction; Z79.01 Long term (current) use of anticoagulants; Z79.4 Long term (current) use of insulin; E11.9 Type 2 diabetes mellitus without complications
CPT/HCPCS: 80048; 83735

== ENCOUNTER → 2019-11-20 14:26 | Outpatient (BNVA) | payer OTHER, MEDICAID, SELFPAY | PROVIDERS: PCP Registered Nurse; Referring Provider Registered Nurse; Visit Provider Internal Medicine Cardiovascular Disease | DX: I25.119 Atherosclerotic heart disease of native coronary artery with unspecified angina pectoris (principal); E66.01 Morbid (severe) obesity due to excess calories; I50.20 Unspecified systolic (congestive) heart failure; I10 Essential (primary) hypertension; I49.5 Sick sinus syndrome | CPT/HCPCS: 99214 ==

== ENCOUNTER 2019-12-08 09:30 | Outpatient (CLI) | payer OTHER, MEDICAID, SELFPAY ==
--- NOTE | 2019-12-08 09:30 | NS.NUTBLAN_ITS ---
ASSESSMENT: Sher (69 y/o male) is a pleasant man who was referred to nutrition counseling r/t hx uncontrolled DM. On insulin. He states he can use his glucometer to track BG levels. He reports BG 258 this am ( 12/07) postprandial. He has cognitive deficit with hx CVA. This RD accompanied him to outpatient conference room and he was having difficulty ambulating.He was able to accurately report his insulin regimen twice during this meeting although he acknowledged his difficulty with memory. His hx hypoglycemia could be r/t memory issue and when he takes his doses or accidentally repeats doses. He has a visiting nurse on Wednesdays and receives support from [facility] program. [facility] also [facility] for his DM according to GISE[facility]. This RD has communicated with both colleagues and another local DM educator regarding this patient and his hx. He will need some assistance reinforcing concepts and behaviors to benefit from DM education provided today. He was confused about his appointment and was a walk-in unscheduled for nutrition at 9:30am (12/07). After his appointment with this RD it was discovered that he was scheduled for a neurology appt. at that time. Sher reported that he finds it difficult to adhere to a diet that would help to mitigate his elevated BG. He has a lifeline device which he has used during episodes of hypoglycemia. When asked about glucagon kit he denied having one although it is on his med list. He lives alone at [facility] and uses [facility] for transportation to his appointments for his medical needs. Sher is at risk for nutritional decline and potential further complications from DM at this time. INTERVENTION: Discussed Sher's role in DM self management, reviewed insulin regimen. Discussed options for action plans r/t hypoglycemia. Provided some educational materials on CHO counting and food choices along with guidelines for desired BG ranges. Suggested that he pass these along to his home nurse and share the information with GISELL so that they could provide some over watch to remind him of healthy food choices and insulin doses and schedule. He was aware that he would have difficulty remembering the information and stated that he needed support to do so. This RD followed up with [facility] nurse and [facility] to inform them of his missed neuro appt and his needs r/t DM. PLAN: There is an IDT meeting with Yee REAVES, home nurse and [facility] resendiz, and this RD organized by Ayah Harrison at [facility] scheduled on Dec to review Sher's needs moving forward.
== END 2019-12-08 09:50 ==
PROVIDERS: PCP Registered Nurse; Visit Provider Family Medicine
DX: E11.9 Type 2 diabetes mellitus without complications (principal); Z79.4 Long term (current) use of insulin; Z71.3 Dietary counseling and surveillance
CPT/HCPCS: 97802

== ENCOUNTER 2019-12-08 16:22 | Emergency (ER) | payer OTHER, MEDICAID, SELFPAY ==
[2019-12-08] VITALS (18 sets, daily range): BP systolic 147–169; BP diastolic 61–88; PULSE 59–64; RESP 15–26; TEMP 36.5–36.8; O2SAT 92–97
--- NOTE | 2019-12-08 16:15 | RT.EKG_ITS ---
APPROVED REPORT Exam: Resting ECG Patient Location: E HR:66 bpm ECG Measurements Heart Rate 66 AXIS NM 191 P 33 QRSd 157 QRS -35 QT 468 T 111 QTc 492 Conclusion Sinus rhythm...normal P axis, V-rate 60- 99 Ventricular bigeminy...bigeminy string>4 w/ V complexes Right bundle branch block...QRSd>120, terminal axis(90,270) Inferior infarct, old...Q >35mS, II III aVF
--- NOTE | 2019-12-08 16:44 | W.ED.GENAD ---
Discharge Plan Disposition Patient Disposition: HOME Condition: Improving Discharge Details Clinical Impression: CHF exacerbation, Chronic renal impairment, Hypomagnesemia, Hyperglycemia Primary Care Provider: ALEXUS LAN ED Provider: Lexii Worthy Home Meds and New Rx's Prescriptions: New furosemide [Lasix] 20 mg tablet 20 mg PO QAM Qty: 4 RF: 0 Continued mirtazapine 15 mg tablet 15 mg PO DAILY RF: 0 ProAir RespiClick 90 MCG aerosol powdr breath activated 90 mcg Inhalation Q4H PRN PRNRF: 0 ketorolac 0.4 % drops 1 drp OP QID RF: 0 (DME) nebulizers Misc See Rx Instructions .ROUTE .MEDSUPPLY Qty: 1 RF: 0 (DME) oxygen-air delivery systems Device See Rx Instructions .ROUTE .MEDSUPPLY Qty: 1 RF: 0 ezetimibe [Zetia] 10 MG tablet 10 mg PO QAM RF: 0 isosorbide mononitrate 120 MG tablet extended release 24 hr 120 mg PO QAM RF: 0 atorvastatin [Lipitor] 80 MG tablet 80 mg PO HS RF: 0 ropinirole 2 MG tablet 2 mg PO HS RF: 0 multivitamin [Daily Multi-Vitamin] 1 EACH tablet 1 tab PO QAM RF: 0 tamsulosin 0.4 mg Capsule 0.4 mg PO DAILY RF: 0 omeprazole 20 MG capsule,delayed release(DR/EC) 40 mg PO DAILY RF: 0 aspirin 81 mg Tablet,Delayed Release (Dr/Ec) 81 mg PO DAILY Qty: 0 RF: 0 ferrous sulfate 325 mg (65 mg iron) Tablet 325 mg PO BID Qty: 0 RF: 0 furosemide 40 mg Tablet 20 mg PO DAILY Qty: 14 RF: 0 Eliquis 5 mg Tablet 5 mg PO BID Qty: 60 RF: 0 metoprolol succinate 100 MG tablet extended release 24 hr 150 mg PO DAILY Qty: 45 RF: 0 Levemir FlexTouch U-100 Insuln 100 unit/mL (3 mL) insulin pen 20 unit SC DAILY Qty: 0 RF: 0 insulin aspart U-100 [Novolog Flexpen U-100 Insulin] 100 UNIT/1 ML insulin pen 5 - 7 unit subcut AC Qty: 0 RF: 0 gabapentin 300 mg Capsule 400 mg PO HS RF: 0 Slow-Mag 71.5 mg Tablet,Delayed Release (Dr/Ec) 71.5 mg PO DAILY RF: 0 polyethylene glycol 3350 [Miralax] 17 gram Powder In Packet 17 g PO DAILY RF: 0 nitroglycerin [Nitrostat] 0.4 mg Tablet, Sublingual 0.4 mg sublingual PRN PRNRF: 0 fluoxetine 20 mg Capsule 20 mg PO DAILY RF: 0 cholecalciferol (vitamin D3) [Vitamin D3] 25 mcg (1,000 unit) Tablet 1,000 unit PO DAILY RF: 0 fluticasone propionate [Flonase Allergy Relief] 50 mcg/actuation [place],Suspension 2 spray INTRANASAL DAILY RF: 0 budesonide-formoterol [Symbicort] 80-4.5 mcg/actuation Hfa Aerosol Inhaler 2 puff INHALATION BID RF: 0 Discharge Instructions Instructions: Heart Failure (ED), Pulmonary Edema (ED), Hypomagnesemia (ED) Additional Instructions: Your imaging and labs suggest that you have fluid overload from your CHF. I would like for you to increase your Lasix dosing to 40 mg daily for the next 4 days. Please take 2 of your 20 mg tablets. I have prescribed you more so you do not run out of your previously scheduled Lasix. Hopefully, you will continue to improve as you have here tonight. Please follow-up with your primary care at the end of the week for reevaluation, call tomorrow to schedule appointment number listed below. If you develop fever/chills, cough, chest pain, nausea, vomiting or the new/worsening symptoms please seek care urgently once again. Referrals: ALEXUS LAN NP [Primary Care Provider] - Discharge Data Discharge Date/Time-TO BE ENTERED AT DEPARTURE: 12/08/19 21:20 Medical Decision Making Patient is a pleasant 69-year-old male presenting to complaint of chest pain. He reports that chest pain was first noted this morning when he awoke. Reports that around 4 PM he took 1 nitro with minimal relief. States that pain is constant, not worsened with deep breaths, exertion. Indicates area around his pacemaker is area of discomfort. States the pain is worse palpation over this area. Denies any fevers or chills. No swelling or drainage. Reports that this does not feel like his MS historically. He reports that he has had progressively increased shortness of breath over recent days without any drastic sudden changes in this. He reports that he is also noting increased swelling in his bilateral lower extremities. Patient does have a home care nursing who did evaluate him and felt that his breathing and lower extremity edema were increasing advised that he come in for evaluation. Reviewed recent note from cardiology. Past medical history significant for CAD status post CABG in 1995, PCI 2005 and again in 2006, STEMI in July 2019 patient did not have a coronary angiogram as this was thought to be demand ischemia. Patient is currently medically managed with aspirin, atorvastatin, Zetia, Toprol, isosorbide mononitrate. Patient also has a history of heart failure with reduced ejection fraction. EF estimated to be 35 to 40%. Patient is on Lasix. Patient has had aortic valve replacement. Patient has pacemaker in place for history of sick sinus syndrome. On exam, he does appear nontoxic. He seems to be resting comfortably. He does have pain with palpation about his pacemaker but did not appreciate any outward evidence to suggest infection. His lungs are clear, abdomen benign. He does have lower extremity edema this is nonpitting. No calf tenderness. Skin normal sinus rhythm I do not appreciate any notable murmurs, rubs or gallops. Patient is anticoagulated on Eliquis, does take a daily aspirin. We will hold off any further antiplatelet at this time as his pain seems to be more localized and superficial and he reports is not consistent with one he has had cardiac disease historically. Labs reviewed. No leukocytosis. H&H is stable for the patient. Creatinine is elevated at 1.31 which is quite good for him. Glucose is 333 reports that this is baseline typically is 92-3 100s, magnesium is low at 1.5, will replenish this year. BNP is elevated at 4000. This does also appear to be baseline for him but as he is in worsening shortness of breath as well as lower extremity edema, I do feel that IV dose of Lasix would be appropriate. We will give him this and obtain repeat troponin. FINDINGS: Tubes, catheters and devices: Similar positioning of pacer device. Lungs: Pulmonary vascular prominence. Clear lungs otherwise. Pleural space: No pneumothorax or sizable effusion. Heart/Mediastinum: Enlarged cardiac silhouette. Bones/joints: stable bony structures. Soft tissues: Redemonstrated surgical changes projecting along the midline chest. IMPRESSION: Mild pulmonary edema. I discussed these findings with the patient. Patient received 20 mg of IV Lasix and is feeling much improved at this time. Replenished his magnesium. He states that his chest pain is gone and shortness of breath is improved after urinating. He feels ready for discharge at this time and I do agree with assessment. His repeat troponin is less than 0.05. His repeat EKG was without ischemic findings or change from previous. I did encourage close follow-up with primary care and would like for him to follow-up at the end of the week for reevaluation. Strict return precautions were given. We discussed dietary improvements to help prevent CHF exacerbation in the future. All of his questions or concerns were addressed and he is in agreement this plan. HPI General Mode of arrival: wheelchair. Date/Time Provider Initiated Documentation: 12/08/19 16:44. Limitations to Documentation: no limitations. Information obtained by: patient, RN notes reviewed and old records reviewed. History of Present Illness 69 year old M presents to the emergency department with the chief complaint of chest pain, described as moderate, with intensity rated at 6. Quality is described as aching, and is localized to the chest. Patient reports no radiation. Patient started experiencing this hour(s) (0600 today) and it has been constant (reports that pain is around the pacer, pain with palpation over this area). No relieving factors improve symptom(s), Other factors that worsen symptoms (palpation over htis area) . Patient notes chest pain and shortness of breath (x several days); denies cough, diaphoresis, fever/chills, headaches, loss of appetite, nausea/vomiting, rash, syncope and weakness. Patient did receive the following treatments prior to arrival, other (took nitro with minimal improvement) Related Data Home Medications Medication Instructions Recorded Confirmed atorvastatin [Lipitor] 80 mg PO HS 01/05/14 11/20/19 ezetimibe [Zetia] 10 mg PO QAM 01/05/14 11/20/19 isosorbide mononitrate 120 mg PO QAM 01/05/14 11/20/19 multivitamin [Daily Multi-Vitamin] 1 tab PO QAM 01/05/14 11/20/19 ropinirole 2 mg PO HS 01/05/14 11/20/19 ProAir RespiClick 90 mcg INHALATION Q4H PRN PRN 07/10/17 11/20/19 mirtazapine 15 mg tablet 15 mg PO DAILY 07/23/18 11/20/19 gabapentin 400 mg PO HS 10/04/18 11/20/19 Slow-Mag 71.5 mg PO DAILY 10/18/18 11/20/19 ketorolac 0.4 % eye drops 1 drp OP QID 04/01/19 11/20/19 nebulizers #1 each 04/01/19 11/20/19 oxygen-air delivery systems #1 04/01/19 11/20/19 fluoxetine 20 mg PO DAILY 05/29/19 11/20/19 nitroglycerin [Nitrostat] 0.4 mg SUBLINGUAL PRN PRN 05/29/19 11/20/19 polyethylene glycol 3350 [Miralax] 17 g PO DAILY 05/29/19 11/20/19 tamsulosin 0.4 mg PO DAILY 07/18/19 11/20/19 budesonide-formoterol [Symbicort] 2 puff INHALATION BID 09/02/19 11/20/19 cholecalciferol (vitamin D3) 1,000 unit PO DAILY 09/02/19 11/20/19 [Vitamin D3] fluticasone propionate [Flonase 2 spray INTRANASAL DAILY 09/02/19 11/20/19 Allergy Relief] omeprazole 40 mg PO DAILY 09/03/19 11/20/19 aspirin 81 mg PO DAILY #0 tab 09/09/19 11/20/19 ferrous sulfate 325 mg PO BID #0 tab 09/09/19 11/20/19 Eliquis 5 mg PO BID #60 tab 11/11/19 11/20/19 Levemir FlexTouch U-100 Insuln 20 unit SC DAILY #0 ml 11/11/19 11/20/19 furosemide 20 mg PO DAILY #14 tab 11/11/19 11/20/19 insulin aspart U-100 [Novolog 5 - 7 unit SUBCUT AC #0 ml 11/11/19 11/20/19 Flexpen U-100 Insulin] metoprolol succinate 150 mg PO DAILY #45 tab 11/11/19 11/20/19 furosemide [Lasix] 20 mg PO QAM #4 tab 12/08/19 Previous Rx's Medication Instructions Recorded aspirin 81 mg PO DAILY #0 tab 09/09/19 ferrous sulfate 325 mg PO BID #0 tab 09/09/19 Eliquis 5 mg PO BID #60 tab 11/11/19 Levemir FlexTouch U-100 Insuln 20 unit SC DAILY #0 ml 11/11/19 furosemide 20 mg PO DAILY #14 tab 11/11/19 insulin aspart U-100 [Novolog 5 - 7 unit SUBCUT AC #0 ml 11/11/19 Flexpen U-100 Insulin] metoprolol succinate 150 mg PO DAILY #45 tab 11/11/19 furosemide [Lasix] 20 mg PO QAM #4 tab 12/08/19 Allergies Allergy/AdvReac Type Severity Reaction Status Date / Time No Known Allergies Allergy Verified 12/08/19 16:41 General Stated Complaint: Chest Pain DAYLIN: 2 Review of Systems Constitutional Constitutional: Reports as per HPI, Denies chills, Denies fever(s), Denies headache(s), Denies lethargy and Denies poor appetite Eyes Eyes: Denies change in vision ENT Ears, Nose, Mouth, and Throat: Denies dizziness and Denies headache(s) Cardiovascular Cardiovascular: Reports as per HPI, Reports chest pain, Reports chest pain at rest, Denies chest pain with activity, Denies syncope, Reports leg edema (chronic, states worsening), Denies lightheadedness, Reports dyspnea and Reports dyspnea on exertion Respiratory Respiratory: Reports as per HPI, Denies chest congestion, Denies cough, Denies pain on inspiration, Denies pain with cough, Reports dyspnea, Reports dyspnea on exertion and Denies wheezing Gastrointestinal Gastrointestinal: Reports as per HPI, Denies abdominal pain, Denies diarrhea, Denies nausea and Denies vomiting Genitourinary Genitourinary: Denies system reviewed and no additional complaints, except as documented (denies change in urinary habits) Musculoskeletal Musculoskeletal: Reports as per HPI and Denies back pain Integumentary/Breasts Skin/Breast: Reports as per HPI and Denies rash Neurologic Neurologic: Reports as per HPI, Denies dizziness, Denies syncope and Denies headache(s) Allergic/Immunologic Allergic/Immunologic: Denies wheezing [facility] Medical History Anxiety with depression Aortic valve replaced Back pain CAD (coronary artery disease) COPD (chronic obstructive pulmonary disease) CVA (cerebral vascular accident) Diabetic neuropathy DM (diabetes mellitus) GERD (gastroesophageal reflux disease) H/O: HTN (hypertension) Hematuria HFrEF (heart failure with reduced ejection fraction) History of bloody stools HTN (hypertension) Hx of fall Hyperlipidemia Hypothyroidism Hypothyroidism (acquired) Insomnia Memory impairment Obesity IVETTE (obstructive sleep apnea) IVETTE on CPAP Pacemaker Paroxysmal atrial fibrillation Passive suicidal ideations Perforated tympanic membrane Polypharmacy Proteinuria Rash, skin Renal insufficiency Sick sinus syndrome Sinus node dysfunction Tinea cruris Surgical History Coronary Artery Bypass Gaft (CABG) Coronary Stent CABGx4 H/O carotid endarterectomy Pacemaker Replacement of aortic valve Family History Other Cancer Heart disease Social History Smoking/Tobacco Use Status: Never Alcohol Intake: former Drug use: Never Substance use type: does not use Details: Pt reports no alcohol since his heart attack 1995 Household members: none Housing: other Details: [facility] Number of Children: 2 current occupation: Lives at [facility]. Disabled since . Seatbelt use: always Do you feel safe at home: Yes Do you feel safe in your relationship?: Yes Additional Social history: lives alone, area on aging comes in to assiste pt. Reports safety issue regarding leg giving out. Exam Const General: cooperative, comfortable, no acute distress, well developed and ill appearing chronically Nutritional Appearance: well nourished and obese Orientation: alert, awake and oriented x3 HENMT Head: normal to inspection Ears: hearing grossly normal bilaterally Mouth: moist mucous membranes Chest Chest: normal inspection of the chest, normal palpation of entire chest wall and no crepitus Resp Effort & Inspection: normal respiratory effort, able to speak in complete sentences and no respiratory distress Auscultation: clear to auscultation bilaterally, no rales, no rhonchi and no wheezes Cardio Rate: regular rate Rhythm: regular rhythm Heart Sounds: S1 normal and S2 normal GI Inspection: normal to inspection, no edema and non-distended Palpation: soft, no hepatosplenomegaly, not firm, no guarding, not rigid and nontender Auscultation: normal bowel sounds Back/Spine/Pelvis Back: no CVA tenderness Thoracic/Lumbar Spine: thoracic and lumbar spine normal to inspection Skin General skin exam: no rashes or lesions noted Trauma: no lacerations or abrasions Neuro General: patient alert, patient awake and patient oriented x3 Cognition: normal cognition Speech: speech normal Gait: normal gait Extrem General: normal to inspection, capillary refill normal, no calf tenderness, normal gait and pedal edema bilaterally Psych Appearance: grossly normal and well kempt Mental Status: mental status grossly normal Speech and Movement: speech and movement normal Course Vital Signs Vital signs: Vital Signs Temperature 36.5 C 12/08/19 16:37 Pulse 62 12/08/19 16:37 Respiratory Rate 15 12/08/19 16:37 Blood Pressure 147/61 H 12/08/19 16:37 Pulse Oximetry 95 12/08/19 16:37 Temperature 36.5 C 12/08/19 16:37 Temperature Source Skin 12/08/19 16:37 Pulse 62 12/08/19 16:37 Respiratory Rate 15 12/08/19 16:37 Respiratory Effort Non-Labored 12/08/19 16:37 Blood Pressure 147/61 H 12/08/19 16:37 Blood Pressure Position Sitting 12/08/19 16:37 Pulse Oximetry 95 12/08/19 16:37 Oxygen Delivery Method Room Air 12/08/19 16:37 Oxygen Flow Rate 0 12/08/19 16:37 Pain Level 7 12/08/19 16:37
--- NOTE | 2019-12-08 17:00 | DI.RAD_ITS ---
EXAM: XR CHEST 2V PA LATERAL CLINICAL HISTORY: CP TECHNIQUE: 2D digital imaging was performed. COMPARISON: CR,XR XR PORTABLE CHEST AP from 11/08/2019 FINDINGS: The heart is again noted to be enlarged. Sternal wires, pacemaker and aortic stent is well as owne ry artery stents are noted. There is mild vascular prominence and mildly increased interstitial annie ings could indicate mild pulmonary edema. No effusions are seen. No focal infiltrate is seen. IMPRESSION: Cardiomegaly and mild pulmonary edema.
[2019-12-08 17:01] LABS: Abs Immature Grans 0.01 10^3/uL (0.0-0.06); Absolute Basophil Count 0.05 10^3/uL (0.0-0.2); Absolute Eosinophil Count 0.15 10^3/uL (0.0-0.7); Absolute Lymphocyte Count 1.98 10^3/uL (1.2-3.4); Absolute Monocyte Count 0.47 10^3/uL (0.1-0.8); Absolute Neutrophil Count 3.93 10^3/uL (1.2-6.7); Basophils % 0.8; Eosinophils % 2.3; HCT 35.5 % (40.0-50.0); HGB 11.6 g/dL (13.5-17.5); Immature Grans % 0.2; MCH 28.7 pg (27.0-33.0); MCHC 32.7 % (32.0-36.0); MCV 87.9 fL (80-95); MPV 10.1 fL (8.0-11.0); Monocytes % 7.1; Neutrophils % 59.6; Nucleated RBC 0 %; Platelet Count 173 10^3/uL (130-400); RBC 4.04 10^6/uL (4.36-5.78); RDW 15.5 % (11.8-14.1); RDW-SD 49.4 fL; WBC 6.59 10^3/uL (4.4-10.8)
[2019-12-08 17:20] LABS: INR 1.2 (0.9-1.1); PTT Activated 27.7 sec (21.0-31.4); Prothrombin Time 11.6 sec (9.3-11.0)
[2019-12-08 17:27] LABS: ALT 21 U/L (16-63); AST 20 U/L (15-37); Albumin 2.6 g/dL (3.4-5.0); Alkaline Phosphatase 78 U/L (46-116); Anion Gap 8.6 mmol/L (3-11); BUN 22 mg/dL (7-18); Bilirubin, Total 0.9 mg/dL (0.2-1.0); CO2 25.4 mmol/L (21.0-32.0); CREATININE 1.31 mg/dL (0.70-1.30); Calcium 8.5 mg/dL (8.5-10.1); Chloride 103 mmol/L (98-107); Estimated GFR 54.58 (mL/min/1.73m2); Glucose 333 mg/dL (74-106); Magnesium 1.5 mg/dL (1.8-2.4); Potassium 4.1 mmol/L (3.5-5.1); Sodium 137 mmol/L (136-145); Total Protein 6.3 g/dL (6.4-8.2); Troponin I < 0.05 ng/mL (<0.06)
[2019-12-08 17:30] LABS: NT-proBNP 4131 pg/mL (<300)
--- NOTE | 2019-12-08 17:46 | NUR.NOTE ---
Nursing Note: Unable to verify Pt home medication list. PT does not know medication an does not have list.
--- NOTE | 2019-12-08 17:50 | DI.VRAD_ITS ---
PROCEDURE INFORMATION: Exam: XR Chest, 2 Views Exam date and time: 12/08/2019 5:39 PM Age: 69 years old Clinical indication: Shortness of breath; Patient HX: SOB TECHNIQUE: Imaging protocol: XR of the chest Views: 2 views. COMPARISON: CR XR PORTABLE CHEST AP 11/08/2019 10:34 PM FINDINGS: Tubes, catheters and devices: Similar positioning of pacer device. Lungs: Pulmonary vascular prominence. Clear lungs otherwise. Pleural space: No pneumothorax or sizable effusion. Heart/Mediastinum: Enlarged cardiac silhouette. Bones/joints: stable bony structures. Soft tissues: Redemonstrated surgical changes projecting along the midline chest. IMPRESSION: Mild pulmonary edema. Dictated and Authenticated by: Steven Vazquez MD. Ordering:MARIA GUADALUPE Shultz MD
[2019-12-08] MEDS: Furosemide 20 MG/2 ML VIAL IVP (18:34)
--- NOTE | 2019-12-08 19:45 | RT.EKG_ITS ---
APPROVED REPORT Exam: Resting ECG Patient Location: E HR:61 bpm ECG Measurements Heart Rate [address] 189 P 81 QRSd 148 QRS -33 QT 468 T 127 QTc 473 Conclusion Sinus rhythm...normal P axis, V-rate 60- 99 Right bundle branch block...QRSd>120, terminal axis(90,270) Inferior infarct, old...Q >35mS, II III aVF
--- NOTE | 2019-12-08 20:00 | NUR.NOTE ---
Nursing Note: Patient reports that he is pain free after urinating. Denies any chest pain. Ambulated to restroom with use of 4 prong cane, no gait disturbance noted.
[2019-12-08] MEDS: MAGNESIUM SULFATE 1 GM/100 ML BAG IVPB (20:06)
[2019-12-08 20:18] LABS: Troponin I < 0.05 ng/mL (<0.06)
--- NOTE | 2019-12-08 20:27 | NUR.NOTE ---
Nursing Note: Update provided to romeo Jorgensen per patient's request. Phone number is [phone].
== END 2019-12-08 21:20 | disposition home or self-care (01) ==
PROVIDERS: Emergency Provider Physician Assistant; PCP Registered Nurse
DX: I13.0 Hypertensive heart and chronic kidney disease with heart failure and stage 1 through stage 4 chronic kidney disease, or unspecified chronic kidney disease (principal); N18.9 Chronic kidney disease, unspecified; I50.21 Acute systolic (congestive) heart failure; E83.42 Hypomagnesemia; E11.65 Type 2 diabetes mellitus with hyperglycemia; Z79.4 Long term (current) use of insulin; E11.22 Type 2 diabetes mellitus with diabetic chronic kidney disease; Z95.0 Presence of cardiac pacemaker; I49.5 Sick sinus syndrome; Z79.01 Long term (current) use of anticoagulants; J44.9 Chronic obstructive pulmonary disease, unspecified
CPT/HCPCS: 36415; 80053; 93005; 96365; 96375; 99285; 71046; 83735; 83880; 84484; 85025; 85610; 85730; 93010; J1941; J3475

== ENCOUNTER 2019-12-11 12:59 | Emergency (ER) | payer OTHER, MEDICAID, SELFPAY ==
[2019-12-11] VITALS (17 sets, daily range): BP systolic 106–139; BP diastolic 41–107; PULSE 59–65; RESP 12–27; TEMP 36.4; O2SAT 94–99
--- NOTE | 2019-12-11 12:45 | RT.EKG_ITS ---
APPROVED REPORT Exam: Resting ECG Patient Location: E HR:66 bpm ECG Measurements Heart Rate 66 AXIS MS 180 P 51 QRSd 154 QRS -33 QT 533 T 86 QTc 558 Conclusion Sinus rhythm...normal P axis, V-rate 60- 99 Ventricular bigeminy...bigeminy string>4 w/ V complexes Right bundle branch block...QRSd>120, terminal axis(90,270) Inferior infarct, old...Q >35mS, II III aVF Prolonged QT interval...QTc >500mS
--- NOTE | 2019-12-11 13:00 | DI.RAD_ITS ---
EXAM: XR CHEST 2V PA LATERAL CLINICAL HISTORY: SOB TECHNIQUE: 2D digital imaging was performed. COMPARISON: CR,XR XR CHEST 2V PA LATERAL from 12/08/2019 FINDINGS: Exam was performed in a semi-erect position. Leads overlie the chest. The exam is limited by patien t body habitus. Sternal wires, pacemaker and proximal aortic stent are again noted. No focal area o f consolidation or effusion is seen. There is no definite pulmonary edema. No thoracic compression fractures or pneumothorax is seen. IMPRESSION: Cardiomegaly. No acute abnormality.
--- NOTE | 2019-12-11 13:03 | DI.CT_ITS ---
EXAM: CT BRAIN NECK CTA CLINICAL HISTORY: WEAKNESS, HX OF CVA. TECHNIQUE: Imaging Protocol: Axial CT angiography was performed with multi-slice acquisition and mu lti-planar and/or 3D reconstructions. CONTRAST MATERIAL: Intravenous: Omnipaque 350 Contrast volume:structured data in ml COMPARISON: CT CT HEAD - STROKE PROTOCOL from 09/03/[address] HEAD - STROKE PROTOCOL from 09/03/[address] BRAIN NECK CTA from 09/03/[address] CHEST PE CTA from 11/09/2019 FINDINGS: CT Head W/O: Ventricles and Extra axial spaces: Moderate atrophy. Stable mild ventricular dilatation, greatest of the posterior horn of the right lateral ventricle. Hemorrhage: None. Cerebral parenchyma: Old right temporooccipital infarct. No evidence of acute infarct or mass. Midline shift: None. Brainstem/Cerebellum: Normal. Calvarium: Normal. Visualized Paranasal sinuses/Mastoids: Clear. Soft Tissues: Unremarkable. CTA Brain W: Internal Carotid Arteries: Mural calcification but no significant stenosis. Middle Cerebral Arteries: Right: No aneurysm, occlusion or significant stenosis. Left: No aneurysm, occlusion or significant stenosis. Anterior Cerebral Arteries: Right: No aneurysm, occlusion or significant stenosis. Left: No aneurysm, occlusion or significant stenosis. Posterior cerebral Arteries: Somewhat diminutive bilaterally, stable appearance. Vertebral Arteries: Right: No aneurysm, occlusion or significant stenosis. Left: No aneurysm, occlusion or significant stenosis. Left vertebral artery is dominant and shows ca lcification distally. Basilar Artery: No aneurysm, occlusion or significant stenosis. CTA Neck W: Common Carotid: Right: No aneurysm, occlusion or significant stenosis. Minimal plaque at the bulb. Left: No aneurysm, occlusion or significant stenosis. External Carotid: Right: No aneurysm, occlusion or significant stenosis. Left: No aneurysm, occlusion or significant stenosis. Internal Carotid: Right: No aneurysm, occlusion or significant stenosis. Left: No aneurysm, occlusion or significant stenosis. Vertebral Artery: Right: No aneurysm, occlusion or significant stenosis. Diminutive but patent. Left: No aneurysm, occlusion or significant stenosis. Dominant. Lung Apices: Normal. Bones: Degenerative disc changes Soft Tissues: Normal. IMPRESSION: 1. Stable appearance of [id number] vasculature. 2. Old right temporooccipital infarct. 3. CTA examination of the neck shows no significant stenosis, dissection or occlusion. RADIATION DOSE DELIVERED: 1,272.03mGy.cm Total DLP DATA REPOSITORY: All CT scans at this facility are submitted to the National Radiology Data Registry (NRDR) Dose Index Registry (DIR) with the [employer] (A[employer]). RADIATION OPTIMIZATION: All CT scans at this facility use at least one of these dose optimization te chniques: automated exposure control; mA and/or kV adjustment per patient size (includes targeted exa ms where dose is matched to clinical indication); or iterative reconstruction.
--- NOTE | 2019-12-11 13:06 | W.ED.GENAD ---
Discharge Plan Disposition Patient Disposition: HOME Condition: Stable Discharge Details Clinical Impression: Generalized weakness Primary Care Provider: ALEXUS LAN ED Provider: Amparo Barboza Home Meds and New Rx's Prescriptions: Continued mirtazapine 15 mg tablet 15 mg PO DAILY RF: 0 ProAir RespiClick 90 MCG aerosol powdr breath activated 90 mcg Inhalation Q4H PRN PRNRF: 0 ketorolac 0.4 % drops 1 drp OP QID RF: 0 (DME) nebulizers Misc See Rx Instructions .ROUTE .MEDSUPPLY Qty: 1 RF: 0 (DME) oxygen-air delivery systems Device See Rx Instructions .ROUTE .MEDSUPPLY Qty: 1 RF: 0 ezetimibe [Zetia] 10 MG tablet 10 mg PO QAM RF: 0 isosorbide mononitrate 120 MG tablet extended release 24 hr 120 mg PO QAM RF: 0 atorvastatin [Lipitor] 80 MG tablet 80 mg PO HS RF: 0 ropinirole 2 MG tablet 2 mg PO HS RF: 0 multivitamin [Daily Multi-Vitamin] 1 EACH tablet 1 tab PO QAM RF: 0 tamsulosin 0.4 mg Capsule 0.4 mg PO DAILY RF: 0 omeprazole 20 MG capsule,delayed release(DR/EC) 40 mg PO DAILY RF: 0 aspirin 81 mg Tablet,Delayed Release (Dr/Ec) 81 mg PO DAILY Qty: 0 RF: 0 ferrous sulfate 325 mg (65 mg iron) Tablet 325 mg PO BID Qty: 0 RF: 0 furosemide 40 mg Tablet 20 mg PO DAILY Qty: 14 RF: 0 Eliquis 5 mg Tablet 5 mg PO BID Qty: 60 RF: 0 metoprolol succinate 100 MG tablet extended release 24 hr 150 mg PO DAILY Qty: 45 RF: 0 Levemir FlexTouch U-100 Insuln 100 unit/mL (3 mL) insulin pen 20 unit SC DAILY Qty: 0 RF: 0 insulin aspart U-100 [Novolog Flexpen U-100 Insulin] 100 UNIT/1 ML insulin pen 5 - 7 unit subcut AC Qty: 0 RF: 0 furosemide [Lasix] 20 mg tablet 20 mg PO QAM Qty: 4 RF: 0 gabapentin 300 mg Capsule 400 mg PO HS RF: 0 Slow-Mag 71.5 mg Tablet,Delayed Release (Dr/Ec) 71.5 mg PO DAILY RF: 0 polyethylene glycol 3350 [Miralax] 17 gram Powder In Packet 17 g PO DAILY RF: 0 nitroglycerin [Nitrostat] 0.4 mg Tablet, Sublingual 0.4 mg sublingual PRN PRNRF: 0 fluoxetine 20 mg Capsule 20 mg PO DAILY RF: 0 cholecalciferol (vitamin D3) [Vitamin D3] 25 mcg (1,000 unit) Tablet 1,000 unit PO DAILY RF: 0 fluticasone propionate [Flonase Allergy Relief] 50 mcg/actuation [place],Suspension 2 spray INTRANASAL DAILY RF: 0 budesonide-formoterol [Symbicort] 80-4.5 mcg/actuation Hfa Aerosol Inhaler 2 puff INHALATION BID RF: 0 Discharge Instructions Instructions: Weakness (ED) Additional Instructions: Follow up with primary care provider in 3-5 days. Return to ED sooner if any worsening or concerns. Increase oral fluids. Continue taking Lasix as instructed previously. Return to the ED for any worsening weakness, shortness of breath or any concerns. Today your head CT is within normal limits, your blood levels are improving since being seen here 2 days ago. Referrals: ALEXUS LAN NP [Primary Care Provider] - Discharge Data Discharge Date/Time-TO BE ENTERED AT DEPARTURE: 12/11/19 15:40 Medical Decision Making 69-year-old male presents to the ED via EMS with chief complaint of generalized weakness. This began approximately 1030 this morning with speaking with someone from home health they were concerned they noticed some increased slurred speech and instructed the patient to call 911. He states that he feels weak in his lower extremities. He does also endorse some shortness of breath. He was seen here on 12/07 for chest pain. Patient states that he feels the same as he did when he was seen here then. He denies any headache. He is alert and oriented x3 upon arrival no focal neuro deficit noted. He does have a history of a CVA, coronary artery disease, COPD, diabetic neuropathy, diabetes mellitus, GERD, hypertension, obesity, atrial fibrillation, he has had coronary artery bypass graft, stents placed and does have a pacemaker. He was instructed to increase his Lasix at his last visit which which he states he has been compliant with. At this time work-up ordered including CBC, CMP, BNP, CT head and neck CTA rule out stroke and chest x-ray. Patient's BGL upon initial exam is 260. EMS reports that they got a BGL in the 300s. EXAM: CT BRAIN NECK CTA CLINICAL HISTORY: WEAKNESS, HX OF CVA. TECHNIQUE: Imaging Protocol: Axial CT angiography was performed with multi-slice acquisition and multi-planar and/or 3D reconstructions. CONTRAST MATERIAL: Intravenous: Omnipaque 350 Contrast volume:structured data in ml COMPARISON: CT CT HEAD - STROKE PROTOCOL from 09/03/[address] HEAD - STROKE PROTOCOL from 09/03/[address] BRAIN NECK CTA from 09/03/[address] CHEST PE CTA from 11/09/2019 FINDINGS: CT Head W/O: Ventricles and Extra axial spaces: Moderate atrophy. Stable mild ventricular dilatation, greatest of the posterior horn of the right lateral ventricle. Hemorrhage: None. Cerebral parenchyma: Old right temporooccipital infarct. No evidence of acute infarct or mass. Midline shift: None. Brainstem/Cerebellum: Normal. Calvarium: Normal. Visualized Paranasal sinuses/Mastoids: Clear. Soft Tissues: Unremarkable. CTA Brain W: Internal Carotid Arteries: Mural calcification but no significant stenosis. Middle Cerebral Arteries: Right: No aneurysm, occlusion or significant stenosis. Left: No aneurysm, occlusion or significant stenosis. Anterior Cerebral Arteries: Right: No aneurysm, occlusion or significant stenosis. Left: No aneurysm, occlusion or significant stenosis. Posterior cerebral Arteries: Somewhat diminutive bilaterally, stable appearance. Vertebral Arteries: Right: No aneurysm, occlusion or significant stenosis. Left: No aneurysm, occlusion or significant stenosis. Left vertebral artery is dominant and shows calcification distally. Basilar Artery: No aneurysm, occlusion or significant stenosis. CTA Neck W: Common Carotid: Right: No aneurysm, occlusion or significant stenosis. Minimal plaque at the bulb. Left: No aneurysm, occlusion or significant stenosis. External Carotid: Right: No aneurysm, occlusion or significant stenosis. Left: No aneurysm, occlusion or significant stenosis. Internal Carotid: Right: No aneurysm, occlusion or significant stenosis. Left: No aneurysm, occlusion or significant stenosis. Vertebral Artery: Right: No aneurysm, occlusion or significant stenosis. Diminutive but patent. Left: No aneurysm, occlusion or significant stenosis. Dominant. Lung Apices: Normal. Bones: Degenerative disc changes Soft Tissues: Normal. IMPRESSION: 1. Stable appearance of [id number] vasculature. 2. Old right temporooccipital infarct. 3. CTA examination of the neck shows no significant stenosis, dissection or occlusion. Patient states that he feels well enough to go home. This time his work-up appears to be improving since his last visit 2 days ago. He is alert and oriented and has remained hemodynamically stable throughout stay. Discussed home care and plan to discharge home with patient's daughter who verbalizes understanding. HPI General Mode of arrival: EMS. Date/Time Provider Initiated Documentation: 12/11/19 13:01. Limitations to Documentation: no limitations. Information obtained by: patient and EMS. HPI Narrative: 69-year-old male presents to the ED via EMS with chief complaint of generalized weakness. This began approximately 1030 this morning with speaking with someone from [facility] they were concerned they noticed some increased slurred speech and instructed the patient to call 911. He states that he feels weak in his lower extremities. He does also endorse some shortness of breath. He was seen here on 12/07 for chest pain. Patient states that he feels the same as he did when he was seen here then. He denies any headache. He is alert and oriented x3 upon arrival no focal neuro deficit noted. He does have a history of a CVA, coronary artery disease, COPD, diabetic neuropathy, diabetes mellitus, GERD, hypertension, obesity, atrial fibrillation, he has had coronary artery bypass graft, stents placed and does have a pacemaker. He was instructed to increase his Lasix at his last visit which which he states he has been compliant with. Related Data Home Medications Medication Instructions Recorded Confirmed atorvastatin [Lipitor] 80 mg PO HS 01/05/14 12/11/19 ezetimibe [Zetia] 10 mg PO QAM 01/05/14 12/11/19 isosorbide mononitrate 120 mg PO QAM 01/05/14 12/11/19 multivitamin [Daily Multi-Vitamin] 1 tab PO QAM 01/05/14 12/11/19 ropinirole 2 mg PO HS 01/05/14 12/11/19 ProAir RespiClick 90 mcg INHALATION Q4H PRN PRN 07/10/17 12/11/19 mirtazapine 15 mg tablet 15 mg PO DAILY 07/23/18 12/11/19 gabapentin 400 mg PO HS 10/04/18 12/11/19 Slow-Mag 71.5 mg PO DAILY 10/18/18 12/11/19 ketorolac 0.4 % eye drops 1 drp OP QID 04/01/19 12/11/19 nebulizers #1 each 04/01/19 12/11/19 oxygen-air delivery systems #1 04/01/19 12/11/19 fluoxetine 20 mg PO DAILY 05/29/19 12/11/19 nitroglycerin [Nitrostat] 0.4 mg SUBLINGUAL PRN PRN 05/29/19 12/11/19 polyethylene glycol 3350 [Miralax] 17 g PO DAILY 05/29/19 12/11/19 tamsulosin 0.4 mg PO DAILY 07/18/19 12/11/19 budesonide-formoterol [Symbicort] 2 puff INHALATION BID 09/02/19 12/11/19 cholecalciferol (vitamin D3) 1,000 unit PO DAILY 09/02/19 12/11/19 [Vitamin D3] fluticasone propionate [Flonase 2 spray INTRANASAL DAILY 09/02/19 12/11/19 Allergy Relief] omeprazole 40 mg PO DAILY 09/03/19 12/11/19 aspirin 81 mg PO DAILY #0 tab 09/09/19 12/11/19 ferrous sulfate 325 mg PO BID #0 tab 09/09/19 12/11/19 Eliquis 5 mg PO BID #60 tab 11/11/19 12/11/19 Levemir FlexTouch U-100 Insuln 20 unit SC DAILY #0 ml 11/11/19 12/11/19 furosemide 20 mg PO DAILY #14 tab 11/11/19 12/11/19 insulin aspart U-100 [Novolog 5 - 7 unit SUBCUT AC #0 ml 11/11/19 12/11/19 Flexpen U-100 Insulin] metoprolol succinate 150 mg PO DAILY #45 tab 11/11/19 12/11/19 furosemide [Lasix] 20 mg PO QAM #4 tab 12/08/19 12/11/19 Previous Rx's Medication Instructions Recorded aspirin 81 mg PO DAILY #0 tab 09/09/19 ferrous sulfate 325 mg PO BID #0 tab 09/09/19 Eliquis 5 mg PO BID #60 tab 11/11/19 Levemir FlexTouch U-100 Insuln 20 unit SC DAILY #0 ml 11/11/19 furosemide 20 mg PO DAILY #14 tab 11/11/19 insulin aspart U-100 [Novolog 5 - 7 unit SUBCUT AC #0 ml 11/11/19 Flexpen U-100 Insulin] metoprolol succinate 150 mg PO DAILY #45 tab 11/11/19 furosemide [Lasix] 20 mg PO QAM #4 tab 12/08/19 Allergies Allergy/AdvReac Type Severity Reaction Status Date / Time No Known Allergies Allergy Verified 12/11/19 13:08 General Stated Complaint: GenMedical DAYLIN: 3 Review of Systems Narrative: Constitutional: Negative for weight loss, alert and oriented, well groomed, obese body habitus, appears comfortable. HEENT: Denies trauma, headaches, blurry vision, nasal discharge, sore throat, trouble swallowing. Chest: Denies chest pain, palpitations, irregular rhythm, hypertension. Respiratory: Denies cough, hemoptysis. Reports shortness of breath. GI: Denies abdominal pain, nausea, vomiting, diarrhea, constipation. : Denies dysuria, hematuria, flank pain, rectal bleeding. Neuro: Denies dizziness, blurry vision, syncope, headache or facial numbness. Reports generalized weakness. Hematologic: Denies easy bruising, intolerance to heat or cold, hair loss. [facility] Medical History Anxiety with depression Aortic valve replaced Back pain CAD (coronary artery disease) COPD (chronic obstructive pulmonary disease) CVA (cerebral vascular accident) Diabetic neuropathy DM (diabetes mellitus) GERD (gastroesophageal reflux disease) H/O: HTN (hypertension) Hematuria HFrEF (heart failure with reduced ejection fraction) History of bloody stools HTN (hypertension) Hx of fall Hyperlipidemia Hypothyroidism Hypothyroidism (acquired) Insomnia Memory impairment Obesity IVETTE (obstructive sleep apnea) IVETTE on CPAP Pacemaker Paroxysmal atrial fibrillation Passive suicidal ideations Perforated tympanic membrane Polypharmacy Proteinuria Rash, skin Renal insufficiency Sick sinus syndrome Sinus node dysfunction Tinea cruris Surgical History Coronary Artery Bypass Gaft (CABG) Coronary Stent CABGx4 H/O carotid endarterectomy Pacemaker Replacement of aortic valve Family History Other Cancer Heart disease Social History Smoking/Tobacco Use Status: Never Alcohol Intake: former Drug use: Never Substance use type: does not use Details: Pt reports no alcohol since his heart attack 1995 Household members: none Housing: other Details: [facility] Number of Children: 2 current occupation: Lives at [employer]. Disabled since . Seatbelt use: always Do you feel safe at home: Yes Do you feel safe in your relationship?: Yes Additional Social history: lives alone, [facility] comes in to assiste pt. Reports safety issue regarding leg giving out. Exam Narrative Exam Narrative: Constitutional: Alert and oriented x3. Appears stated age. Normal body habitus. Head: Normocephalic, no trauma. Eyes: Pupils PERRLA, Red reflex noted, EOM's intact. Eyelids symmetrical without lesions, discharge, or swelling. ENT: Bilateral TM's WNL, External ear normal to inspection, no mastoid TTP, swelling, or erythema, Nasal turbinates WNL, no nasal discharge. Normal dentition, Posterior pharynx WNL, no exudate. Chest: RRR, Normal S1, S2, distal pulses intact. Resp: Lungs clear to auscultation bilaterally, no wheezes, rales, or rhonchi. Musculoskeletal: Normal gait, 5/5 strength to all four extremities. Skin: No suspicious rashes or lesions. Capillary refill less than 2 sec. Neurologic: Cranial nerves II-XII intact. Alert and oriented x 3. DTR's intact. Hematologic/Lymphatic: No ecchymosis, no lymphadenopathy. Course Vital Signs Vital signs: Vital Signs Temperature 36.4 C L 12/11/19 12:56 Pulse 64 12/11/19 12:56 Respiratory Rate 18 12/11/19 12:56 Blood Pressure 127/107 H 12/11/19 12:56 Pulse Oximetry 97 12/11/19 12:56 Temperature 36.4 C L 12/11/19 12:56 Temperature Source Skin 12/11/19 12:56 Pulse 64 12/11/19 12:56 Respiratory Rate 18 12/11/19 12:56 Blood Pressure 127/107 H 12/11/19 12:56 Blood Pressure Position Sitting 12/11/19 12:56 Pulse Oximetry 97 12/11/19 12:56 Oxygen Delivery Method Room Air 12/11/19 12:56 Oxygen Flow Rate 0 12/11/19 12:56
[2019-12-11 13:19] LABS: Abs Immature Grans 0.02 10^3/uL (0.0-0.06); Absolute Basophil Count 0.06 10^3/uL (0.0-0.2); Absolute Eosinophil Count 0.15 10^3/uL (0.0-0.7); Absolute Lymphocyte Count 1.87 10^3/uL (1.2-3.4); Absolute Monocyte Count 0.63 10^3/uL (0.1-0.8); Absolute Neutrophil Count 4.79 10^3/uL (1.2-6.7); Basophils % 0.8; HGB 11.4 g/dL (13.5-17.5); Immature Grans % 0.3; Lymphocytes % 24.9; MCH 28.7 pg (27.0-33.0); MCHC 32.6 % (32.0-36.0); MCV 88.2 fL (80-95); MPV 10.2 fL (8.0-11.0); Monocytes % 8.4; Neutrophils % 63.6; Nucleated RBC 0 %; Platelet Count 179 10^3/uL (130-400); RBC 3.97 10^6/uL (4.36-5.78); RDW 15.4 % (11.8-14.1); WBC 7.52 10^3/uL (4.4-10.8)
[2019-12-11 13:51] LABS: ALT 16 U/L (16-63); AST 14 U/L (15-37); Albumin 2.6 g/dL (3.4-5.0); Alkaline Phosphatase 77 U/L (46-116); BUN 26 mg/dL (7-18); Bilirubin, Total 1.3 mg/dL (0.2-1.0); CREATININE 1.34 mg/dL (0.70-1.30); Calcium 8.4 mg/dL (8.5-10.1); Chloride 103 mmol/L (98-107); Estimated GFR 53.17 (mL/min/1.73m2); Glucose 264 mg/dL (74-106); Magnesium 1.5 mg/dL (1.8-2.4); NT-proBNP 3164 pg/mL (<300); Potassium 3.6 mmol/L (3.5-5.1); Sodium 138 mmol/L (136-145); Total Protein 6.1 g/dL (6.4-8.2)
[2019-12-11 13:56] LABS: Troponin I < 0.05 ng/mL (<0.06)
== END 2019-12-11 15:40 | disposition home or self-care (01) ==
PROVIDERS: Emergency Provider Registered Nurse Emergency; PCP Registered Nurse
DX: R53.1 Weakness (principal); E11.65 Type 2 diabetes mellitus with hyperglycemia; Z79.4 Long term (current) use of insulin; Z60.2 Problems related to living alone; I25.10 Atherosclerotic heart disease of native coronary artery without angina pectoris; Z95.1 Presence of aortocoronary bypass graft; Z95.5 Presence of coronary angioplasty implant and graft; J44.9 Chronic obstructive pulmonary disease, unspecified; I10 Essential (primary) hypertension; Z95.0 Presence of cardiac pacemaker
CPT/HCPCS: 36415; 36416; 70496; 70498; 80053; 82962; 93005; 99285; 71046; 83735; 83880; 84484; 85025; 93010

== ENCOUNTER 2019-12-15 20:01 | Emergency (ER) | payer OTHER, MEDICAID, SELFPAY ==
[2019-12-15] VITALS (41 sets, daily range): BP systolic 115–171; BP diastolic 61–91; PULSE 59–65; RESP 16–28; TEMP 36.5; O2SAT 94–99
--- NOTE | 2019-12-15 19:30 | DI.RAD_ITS ---
EXAM: XR CHEST 2V PA LATERAL CLINICAL HISTORY: Chest pain, TECHNIQUE: COMPARISON: CR XR CHEST 2V PA LATERAL from 12/11/2019 FINDINGS: Heart is enlarged. There is a transvenous cardiac pacemaker in position. The lungs appear predomina ntly clear on the frontal view, however on the lateral view there is some prominence of pulmonary mar kings, perhaps due to poor inspiration. Multiple sternal sutures noted. No gross pleural effusion. IMPRESSION: No evidence of acute process. RADIATION DOSE DELIVERED: Total DLP
--- NOTE | 2019-12-15 19:30 | RT.EKG_ITS ---
APPROVED REPORT Exam: Resting ECG Patient Location: E HR:65 bpm ECG Measurements Heart Rate 65 AXIS NE 203 P 46 QRSd 156 QRS -44 QT 464 T 99 QTc 481 Conclusion Sinus rhythm...normal P axis, V-rate 60- 99 Right bundle branch block...QRSd>120, terminal axis(90,270) Inferior infarct, old...Q >35mS, II III aVF. RBBB. Sinus. No change from previous. I have reviewed and interpreted ECG and agree with software generated interpretation.
--- NOTE | 2019-12-15 19:46 | ED.GENADUL_ITS ---
Discharge Plan Disposition Patient Disposition: HOME Condition: Stable Discharge Details Clinical Impression: Chest pain Primary Care Provider: Abdullahi Glililand ED Provider: Amparo Barboza Home Meds and New Rx's Prescriptions: Continued mirtazapine 15 mg tablet 15 mg PO DAILY RF: 0 ProAir RespiClick 90 MCG aerosol powdr breath activated 90 mcg Inhalation Q4H PRN PRNRF: 0 ketorolac 0.4 % drops 1 drp OP QID RF: 0 (DME) nebulizers Misc See Rx Instructions .ROUTE .MEDSUPPLY Qty: 1 RF: 0 (DME) oxygen-air delivery systems Device See Rx Instructions .ROUTE .MEDSUPPLY Qty: 1 RF: 0 ezetimibe [Zetia] 10 MG tablet 10 mg PO QAM RF: 0 isosorbide mononitrate 120 MG tablet extended release 24 hr 120 mg PO QAM RF: 0 atorvastatin [Lipitor] 80 MG tablet 80 mg PO HS RF: 0 ropinirole 2 MG tablet 2 mg PO HS RF: 0 multivitamin [Daily Multi-Vitamin] 1 EACH tablet 1 tab PO QAM RF: 0 tamsulosin 0.4 mg Capsule 0.4 mg PO DAILY RF: 0 omeprazole 20 MG capsule,delayed release(DR/EC) 40 mg PO DAILY RF: 0 aspirin 81 mg Tablet,Delayed Release (Dr/Ec) 81 mg PO DAILY Qty: 0 RF: 0 ferrous sulfate 325 mg (65 mg iron) Tablet 325 mg PO BID Qty: 0 RF: 0 furosemide 40 mg Tablet 20 mg PO DAILY Qty: 14 RF: 0 Eliquis 5 mg Tablet 5 mg PO BID Qty: 60 RF: 0 metoprolol succinate 100 MG tablet extended release 24 hr 150 mg PO DAILY Qty: 45 RF: 0 Levemir FlexTouch U-100 Insuln 100 unit/mL (3 mL) insulin pen 20 unit SC DAILY Qty: 0 RF: 0 insulin aspart U-100 [Novolog Flexpen U-100 Insulin] 100 UNIT/1 ML insulin pen 5 - 7 unit subcut AC Qty: 0 RF: 0 furosemide [Lasix] 20 mg tablet 20 mg PO QAM Qty: 4 RF: 0 gabapentin 300 mg Capsule 400 mg PO HS RF: 0 Slow-Mag 71.5 mg Tablet,Delayed Release (Dr/Ec) 71.5 mg PO DAILY RF: 0 polyethylene glycol 3350 [Miralax] 17 gram Powder In Packet 17 g PO DAILY RF: 0 nitroglycerin [Nitrostat] 0.4 mg Tablet, Sublingual 0.4 mg sublingual PRN PRNRF: 0 fluoxetine 20 mg Capsule 20 mg PO DAILY RF: 0 cholecalciferol (vitamin D3) [Vitamin D3] 25 mcg (1,000 unit) Tablet 1,000 unit PO DAILY RF: 0 fluticasone propionate [Flonase Allergy Relief] 50 mcg/actuation [place],Suspension 2 spray INTRANASAL DAILY RF: 0 budesonide-formoterol [Symbicort] 80-4.5 mcg/actuation Hfa Aerosol Inhaler 2 puff INHALATION BID RF: 0 Discharge Instructions Instructions: Chest Pain (ED) Additional Instructions: Follow up with primary care provider in 3-5 days. Return to ED sooner if any worsening or concerns. Increase oral fluids. Return for any worsening shortness of breath, chest pain, any concerns. Referrals: Abdullahi Gilliland [Primary Care Provider] - Medical Decision Making Labs show hemoglobin 11.5 hematocrit 35.5, sodium is 135, BUN 20, creatinine 1.47 GFR is 47.78. Glucose is 433, magnesium is 1.5, BNP is 4500, initial troponin is negative less than 0.05. EKG was reviewed by Mounika Persaud DO ER attending, please see her official read. Right bundle branch block old was available for review. TECHNIQUE: Imaging protocol: XR of the chest Views: 2 views. COMPARISON: CR XR CHEST 2V PA LATERAL 12/11/2019 2:33 PM FINDINGS: Lungs: Unremarkable. No consolidation. Pleural space: Unremarkable. No pleural effusion. No pneumothorax. Heart/Mediastinum: Previous open-heart surgery. Left chest pacemaker. Mild cardiomegaly. Bones/joints: Unremarkable. IMPRESSION: 1. No acute findings. 2. Previous open-heart surgery. Left chest pacemaker. 3. Stable exam since 12/11/2019. Thank you for allowing us to participate in the care of your patient. Dictated and Authenticated by: Crow Cooper MD Patient is a heart score of 5, he does have multiple risk factors including previous STEMI, CHF, aortic valve replacement, COPD, coronary artery bypass graft, coronary stent, pacemaker. Last echocardiogram read by Dr. Batista wire transfer clerk reviewed from August 2019 shows an ejection fraction of 36% At this time possible admission for chest pain rule out due to patient's high risk factors and repeat visits. 2199: Spoke with hospitalist Dr. Malagon regarding patient he is at bedside for ev aluation. 2211: Dr. Malagon evaluated patient, discussed case in details please see his note. At this time patient may not need to be admitted second serial troponin is pending at this time. Repeat troponin is negative within normal limits, patient to be discharged home at this time. Her CT called for patient transport home discussed strict return instructions, verbalized understanding. HPI General Mode of arrival: EMS . Date/Time Provider Initiated Documentation: 12/15/19 21:11 . Limitations to Documentation: no limitations . Information obtained by: patient and EMS . HPI Narrative: 69-year-old presents to the ED via EMS with chief complaint of right-sided chest pain which began this afternoon. He reports that he was given 4 baby aspirin by home health prior to arrival and he was instructed to take 2 sublingual nitro which he did with no change in his pain. He denies any radiation he states that the pain comes and goes. He does have a history of CHF, coronary artery disease, aortic valve replacement, COPD, CVA with left-sided deficit, diabetic neuropathy, diabetes mellitus, GERD, hypertension and multiple other comorbidities. He has had a coronary artery bypass graft, stent placement, pacemaker placement. He is alert and oriented upon initial exam. He describes the pain as numbness. Related Data Home Medications Medication Instructions Recorded Confirmed atorvastatin [Lipitor] 80 mg PO HS 01/05/14 12/15/19 ezetimibe [Zetia] 10 mg PO QAM 01/05/14 12/15/19 isosorbide mononitrate 120 mg PO QAM 01/05/14 12/15/19 multivitamin [Daily Multi-Vitamin] 1 tab PO QAM 01/05/14 12/15/19 ropinirole 2 mg PO HS 01/05/14 12/15/19 ProAir RespiClick 90 mcg INHALATION Q4H PRN PRN 07/10/17 12/15/19 mirtazapine 15 mg tablet 15 mg PO DAILY 07/23/18 12/15/19 gabapentin 400 mg PO HS 10/04/18 12/15/19 Slow-Mag 71.5 mg PO DAILY 10/18/18 12/15/19 ketorolac 0.4 % eye drops 1 drp OP QID 04/01/19 12/15/19 nebulizers #1 each 04/01/19 12/15/19 oxygen-air delivery systems #1 04/01/19 12/15/19 fluoxetine 20 mg PO DAILY 05/29/19 12/15/19 nitroglycerin [Nitrostat] 0.4 mg SUBLINGUAL PRN PRN 05/29/19 12/15/19 polyethylene glycol 3350 [Miralax] 17 g PO DAILY 05/29/19 12/15/19 tamsulosin 0.4 mg PO DAILY 07/18/19 12/15/19 budesonide-formoterol [Symbicort] 2 puff INHALATION BID 09/02/19 12/15/19 cholecalciferol (vitamin D3) 1,000 unit PO DAILY 09/02/19 12/15/19 [Vitamin D3] fluticasone propionate [Flonase 2 spray INTRANASAL DAILY 09/02/19 12/15/19 Allergy Relief] omeprazole 40 mg PO DAILY 09/03/19 12/15/19 aspirin 81 mg PO DAILY #0 tab 09/09/19 12/15/19 ferrous sulfate 325 mg PO BID #0 tab 09/09/19 12/15/19 Eliquis 5 mg PO BID #60 tab 11/11/19 12/15/19 Levemir FlexTouch U-100 Insuln 20 unit SC DAILY #0 ml 11/11/19 12/15/19 furosemide 20 mg PO DAILY #14 tab 11/11/19 12/15/19 insulin aspart U-100 [Novolog 5 - 7 unit SUBCUT AC #0 ml 11/11/19 12/15/19 Flexpen U-100 Insulin] metoprolol succinate 150 mg PO DAILY #45 tab 11/11/19 12/15/19 furosemide [Lasix] 20 mg PO QAM #4 tab 12/08/19 12/15/19 Previous Rx's Medication Instructions Recorded aspirin 81 mg PO DAILY #0 tab 09/09/19 ferrous sulfate 325 mg PO BID #0 tab 09/09/19 Eliquis 5 mg PO BID #60 tab 11/11/19 Levemir FlexTouch U-100 Insuln 20 unit SC DAILY #0 ml 11/11/19 furosemide 20 mg PO DAILY #14 tab 11/11/19 insulin aspart U-100 [Novolog 5 - 7 unit SUBCUT AC #0 ml 11/11/19 Flexpen U-100 Insulin] metoprolol succinate 150 mg PO DAILY #45 tab 11/11/19 furosemide [Lasix] 20 mg PO QAM #4 tab 12/08/19 Allergies Allergy/AdvReac Type Severity Reaction Status Date / Time No Known Allergies Allergy Verified 12/15/19 19:40 General Stated Complaint: Chest Pain [place]: 3 Review of Systems Narrative: Constitutional: Negative for weight loss, alert and oriented, well groomed, normal body habitus, appears comfortable. HEENT: Denies trauma, headaches, blurry vision, nasal discharge, sore throat, trouble swallowing. Chest: Denies palpitations, irregular rhythm, hypertension. Positive chest pain. Respiratory: Denies Shortness of breath, cough, hemoptysis. GI: Denies abdominal pain, nausea, vomiting, diarrhea, constipation. : Denies dysuria, hematuria, flank pain, rectal bleeding. Neuro: Denies dizziness, blurry vision, weakness, syncope, headache or facial numbness. Hematologic: Denies easy bruising, intolerance to heat or cold, hair loss. COUNT INCLUDES THE [facility] Medical History Anxiety with depression Aortic valve replaced Back pain CAD (coronary artery disease) COPD (chronic obstructive pulmonary disease) CVA (cerebral vascular accident) Diabetic neuropathy DM (diabetes mellitus) GERD (gastroesophageal reflux disease) H/O: HTN (hypertension) Hematuria HFrEF (heart failure with reduced ejection fraction) History of bloody stools HTN (hypertension) Hx of fall Hyperlipidemia Hypothyroidism Hypothyroidism (acquired) Insomnia Memory impairment Obesity IVETTE (obstructive sleep apnea) IVETTE on CPAP Pacemaker Paroxysmal atrial fibrillation Passive suicidal ideations Perforated tympanic membrane Polypharmacy Proteinuria Rash, skin Renal insufficiency Sick sinus syndrome Sinus node dysfunction Tinea cruris Surgical History Coronary Artery Bypass Gaft (CABG) Coronary Stent CABGx4 H/O carotid endarterectomy Pacemaker Replacement of aortic valve Family History Other Cancer Heart disease Social History Smoking/Tobacco Use Status: Never Alcohol Intake: former Drug use: Never Substance use type: does not use Details: Pt reports no alcohol since his heart attack 1995 Household members: none Housing: other Details: [facility] Number of Children: 2 current occupation: Lives at [employer] [facility]. Disabled since . Seatbelt use: always Do you feel safe at home: Yes Do you feel safe in your relationship?: Yes Additional Social history: lives alone, area on aging comes in to assiste pt. Reports safety issue regarding leg giving out. Exam Narrative Exam Narrative: Constitutional: Alert and oriented x3. Appears older than stated age. Normal body habitus. Head: Normocephalic, no trauma. Eyes: Pupils PERRLA, Red reflex noted, EOM's intact. Eyelids symmetrical without lesions, discharge, or swelling. ENT: Bilateral TM's WNL, External ear normal to inspection, no mastoid TTP, swelling, or erythema, Nasal turbinates WNL, no nasal discharge. Normal dentition, Posterior pharynx WNL, no exudate. Chest: RRR, Normal S1, S2, distal pulses intact. RBBB Resp: Lungs clear to auscultation bilaterally, no wheezes, rales, or rhonchi. Musculoskeletal: Normal gait, 5/5 strength to all four extremities. Skin: No suspicious rashes or lesions. Capillary refill less than 2 sec. Neurologic: Cranial nerves II-XII intact. Alert and oriented x 3. DTR's intact. Hematologic/Lymphatic: No ecchymosis, no lymphadenopathy. Course Vital Signs Vital signs: Vital Signs Temperature 36.5 C 12/15/19 19:38 Pulse 62 12/15/19 19:38 Respiratory Rate 18 12/15/19 19:38 Blood Pressure 162/82 H 12/15/19 19:38 Pulse Oximetry 97 12/15/19 19:38 Temperature 36.5 C 12/15/19 19:38 Temperature Source Tympanic 12/15/19 19:38 Pulse 62 12/15/19 19:38 Respiratory Rate 18 12/15/19 19:38 Blood Pressure 162/82 H 12/15/19 19:38 Blood Pressure Position Supine 12/15/19 19:38 Pulse Oximetry 97 12/15/19 19:38 Oxygen Delivery Method Room Air 12/15/19 19:38 Oxygen Flow Rate 0 12/15/19 19:38 Pain Level 0 12/15/19 19:38
[2019-12-15 20:23] LABS: Abs Immature Grans 0.03 10^3/uL (0.0-0.06); Absolute Basophil Count 0.05 10^3/uL (0.0-0.2); Absolute Eosinophil Count 0.11 10^3/uL (0.0-0.7); Absolute Lymphocyte Count 1.68 10^3/uL (1.2-3.4); Absolute Monocyte Count 0.49 10^3/uL (0.1-0.8); Basophils % 0.9; Eosinophils % 1.9; HCT 35.5 % (40.0-50.0); HGB 11.5 g/dL (13.5-17.5); Immature Grans % 0.5; Lymphocytes % 28.7; MCH 28.6 pg (27.0-33.0); MCHC 32.4 % (32.0-36.0); MCV 88.3 fL (80-95); MPV 9.9 fL (8.0-11.0); Monocytes % 8.4; Neutrophils % 59.6; Nucleated RBC 0 %; Platelet Count 179 10^3/uL (130-400); RBC 4.02 10^6/uL (4.36-5.78); RDW 15.2 % (11.8-14.1); RDW-SD 49.1 fL; WBC 5.86 10^3/uL (4.4-10.8)
[2019-12-15 20:43] LABS: ALT 13 U/L (16-63); AST 13 U/L (15-37); Albumin 2.7 g/dL (3.4-5.0); Alkaline Phosphatase 89 U/L (46-116); BUN 20 mg/dL (7-18); Bilirubin, Total 1.1 mg/dL (0.2-1.0); CREATININE 1.47 mg/dL (0.70-1.30); Calcium 8.6 mg/dL (8.5-10.1); Chloride 99 mmol/L (98-107); Estimated GFR 47.78 (mL/min/1.73m2); Glucose 433 mg/dL (74-106); Magnesium 1.5 mg/dL (1.8-2.4); NT-proBNP 4500 pg/mL (<300); Potassium 3.6 mmol/L (3.5-5.1); Sodium 135 mmol/L (136-145); Total Protein 6.4 g/dL (6.4-8.2)
[2019-12-15 20:52] LABS: Troponin I < 0.05 ng/mL (<0.06)
--- NOTE | 2019-12-15 20:55 | DI.VRAD_ITS ---
PROCEDURE INFORMATION: Exam: XR Chest, 2 Views Exam date and time: 12/15/2019 8:32 PM Age: 69 years old Clinical indication: Chest pain; Type not specified; Prior surgery TECHNIQUE: Imaging protocol: XR of the chest Views: 2 views. COMPARISON: CR XR CHEST 2V PA LATERAL 12/11/2019 2:33 PM FINDINGS: Lungs: Unremarkable. No consolidation. Pleural space: Unremarkable. No pleural effusion. No pneumothorax. Heart/Mediastinum: Previous open-heart surgery. Left chest pacemaker. Mild cardiomegaly. Bones/joints: Unremarkable. IMPRESSION: 1. No acute findings. 2. Previous open-heart surgery. Left chest pacemaker. 3. Stable exam since 12/11/2019. Dictated and Authenticated by: Crow Cooper MD. Ordering:DUNCAN Christensen MD
--- NOTE | 2019-12-15 22:10 | W.MEDCONSULT ---
Date of service: 12/15/19 Time of Service: 22:10 Assessment and Plan Assessment and plan (1) Chest pain: Status: Acute Assessment and plan: Atypical CP with negative work up and now asymptomatic. I think there is low likelihood ACS and feel that if troponin 2 is also negative admission not required. History of Present Illness History of Present Illness Chief Complaint: CP Narrative: 69 male with known CAD, s/p AR remotely, states he gets occasional angina. Here tonight reporting intermittent CP whic is different than his anginal pain; this was left sided, lasting up to 15 minutes, w/o SOB diaphoresis or nausea. At home he took NTG w/o effect. The pain later moved to his right side, but this too has resolved. At present he has been pain free for almost 2 hours and has had no intervention here in ER. W/U of note for neg troponin; EKG showing stable RBBB and old IMI; and neg CXR. I was asked to evaluate for possible admission. Patient is requesting to go home. Review of Systems All systems reviewed & are unremarkable except as noted in HPI and below PFSH Medical History Anxiety with depression Aortic valve replaced Back pain CAD (coronary artery disease) COPD (chronic obstructive pulmonary disease) CVA (cerebral vascular accident) Diabetic neuropathy DM (diabetes mellitus) GERD (gastroesophageal reflux disease) H/O: HTN (hypertension) Hematuria HFrEF (heart failure with reduced ejection fraction) History of bloody stools HTN (hypertension) Hx of fall Hyperlipidemia Hypothyroidism Hypothyroidism (acquired) Insomnia Memory impairment Obesity IVETTE (obstructive sleep apnea) IVETTE on CPAP Pacemaker Paroxysmal atrial fibrillation Passive suicidal ideations Perforated tympanic membrane Polypharmacy Proteinuria Rash, skin Renal insufficiency Sick sinus syndrome Sinus node dysfunction Tinea cruris Surgical History Coronary Artery Bypass Gaft (CABG) Coronary Stent CABGx4 H/O carotid endarterectomy Pacemaker Replacement of aortic valve Family History Other Cancer Heart disease Social History Smoking/Tobacco Use Status: Never Alcohol Intake: former Drug use: Never Substance use type: does not use Details: Pt reports no alcohol since his heart attack 1995 Household members: none Housing: other Details: [facility] Number of Children: 2 current occupation: Lives at [facility]. Disabled since . Seatbelt use: always Do you feel safe at home: Yes Do you feel safe in your relationship?: Yes Additional Social history: lives alone, area on aging comes in to assiste pt. Reports safety issue regarding leg giving out. Exam Narrative Exam Narrative: 137/61, 60, 36.5, 23, 99% RA. HEENT unremarkable; neck supple; heart RRR w/o MRG; abdomen soft NT; extremities 1+ pedal edema Results Last Vital Signs Temp 36.5 C 12/15/19 19:38 Pulse 60 12/15/19 19:50 Resp 23 12/15/19 20:02 BP 137/61 12/15/19 20:02 Pulse Ox 99 12/15/19 20:02 Labs Result diagrams: 12/15/19 20:13 12/15/19 20:13 Labs: Laboratory Results - last 24 hr 12/15/19 12/15/19 20:13 20:13 WBC 5.86 RBC 4.02 L Hgb 11.5 L Hct 35.5 L MCV 88.3 MCH 28.6 MCHC 32.4 RDW 15.2 H Plt Count 179 MPV 9.9 Immature Gran % 0.5 Neutrophils % 59.6 Lymphocytes % 28.7 Monocytes % 8.4 Eosinophils % 1.9 Basophils % 0.9 Nucleated RBC % 0 Absolute Neutrophils 3.50 Absolute Lymphocytes 1.68 Absolute Monocytes 0.49 Absolute Eosinophils 0.11 Absolute Basophils 0.05 Sodium 135 L Potassium 3.6 Chloride 99 Carbon Dioxide 28.0 Anion Gap 8.0 BUN 20 H Creatinine 1.47 H Estimated GFR/1.73 m2 47.78 Glucose 433 H Calcium 8.6 Magnesium 1.5 L Total Bilirubin 1.1 H AST 13 L ALT 13 L Alkaline Phosphatase 89 Troponin I < 0.05 NT-Pro-B Natriuret Pep 4500 H Total Protein 6.4 Albumin 2.7 L
[2019-12-15 23:09] LABS: Troponin I < 0.05 ng/mL (<0.06)
== END 2019-12-15 23:55 | disposition home or self-care (01) ==
LOC: ER 12-16 00:11
PROVIDERS: Emergency Provider Registered Nurse Emergency; PCP Family Medicine
DX: R07.89 Other chest pain (principal); E11.65 Type 2 diabetes mellitus with hyperglycemia; I13.0 Hypertensive heart and chronic kidney disease with heart failure and stage 1 through stage 4 chronic kidney disease, or unspecified chronic kidney disease; I50.22 Chronic systolic (congestive) heart failure; N18.9 Chronic kidney disease, unspecified; I25.10 Atherosclerotic heart disease of native coronary artery without angina pectoris; Z95.5 Presence of coronary angioplasty implant and graft; Z95.1 Presence of aortocoronary bypass graft; J44.9 Chronic obstructive pulmonary disease, unspecified; Z79.4 Long term (current) use of insulin
CPT/HCPCS: 36415; 80053; 93005; 99252; 99283; 99285; 71046; 83735; 83880; 84484; 85025; 93010

== ENCOUNTER 2019-12-22 12:19 | Outpatient (REF) | payer OTHER, MEDICAID, SELFPAY ==
[2019-12-22 13:17] LABS: Anion Gap 6.7 mmol/L (3-11); BUN 30 mg/dL (7-18); CO2 31.3 mmol/L (21.0-32.0); CREATININE 1.44 mg/dL (0.70-1.30); Calcium 8.9 mg/dL (8.5-10.1); Chloride 100 mmol/L (98-107); Estimated GFR 48.93 (mL/min/1.73m2); Glucose 400 mg/dL (74-106); Potassium 4.7 mmol/L (3.5-5.1); Sodium 138 mmol/L (136-145)
== END 2019-12-22 12:39 ==
LOC: NCHCN 12:19
PROVIDERS: PCP Family Medicine; Visit Provider Family Medicine
DX: I10 Essential (primary) hypertension (principal); I25.10 Atherosclerotic heart disease of native coronary artery without angina pectoris; E11.42 Type 2 diabetes mellitus with diabetic polyneuropathy
CPT/HCPCS: 80048

== ENCOUNTER → 2019-12-29 12:20 | Outpatient (BNVA) | payer OTHER, MEDICAID, SELFPAY | PROVIDERS: PCP Family Medicine; Visit Provider Psychiatry & Neurology Neurology | DX: I63.331 Cerebral infarction due to thrombosis of right posterior cerebral artery (principal); I48.0 Paroxysmal atrial fibrillation; I10 Essential (primary) hypertension; E11.65 Type 2 diabetes mellitus with hyperglycemia; E11.42 Type 2 diabetes mellitus with diabetic polyneuropathy; Z95.0 Presence of cardiac pacemaker; Z79.4 Long term (current) use of insulin | CPT/HCPCS: 99213 ==

== ENCOUNTER 2020-01-31 16:19 | Emergency (ER) | payer OTHER, MEDICAID, SELFPAY ==
[2020-01-31] VITALS (30 sets, daily range): BP systolic 154–180; BP diastolic 71–128; PULSE 66–71; RESP 16–18; TEMP 36.6; O2SAT 94–99
[2020-01-31] MEDS: traMADol 50 MG TAB PO (16:48)
[2020-01-31] MEDS: Lidocaine 5% Patch 1 PATCH TP (16:49)
[2020-01-31 16:53] LABS: Abs Immature Grans 0.02 10^3/uL (0.0-0.06); Absolute Basophil Count 0.05 10^3/uL (0.0-0.2); Absolute Eosinophil Count 0.11 10^3/uL (0.0-0.7); Absolute Lymphocyte Count 1.71 10^3/uL (1.2-3.4); Absolute Monocyte Count 0.36 10^3/uL (0.1-0.8); Absolute Neutrophil Count 3.87 10^3/uL (1.2-6.7); Basophils % 0.8; Eosinophils % 1.8; HCT 37.3 % (40.0-50.0); HGB 12.3 g/dL (13.5-17.5); Immature Grans % 0.3; Lymphocytes % 27.9; MCH 29.1 pg (27.0-33.0); MCV 88.2 fL (80-95); MPV 9.9 fL (8.0-11.0); Monocytes % 5.9; Neutrophils % 63.3; Nucleated RBC 0 %; Platelet Count 218 10^3/uL (130-400); RBC 4.23 10^6/uL (4.36-5.78); RDW 15.5 % (11.8-14.1); RDW-SD 49.1 fL; WBC 6.12 10^3/uL (4.4-10.8)
--- NOTE | 2020-01-31 16:55 | W.ED.GENAD ---
Discharge Plan Disposition Patient Disposition: HOME Condition: Stable Discharge Details Clinical Impression: Left lumbar radiculopathy, Back pain, Hyperglycemia Primary Care Provider: Abdullahi Gilliland ED Provider: Kj Peterson Home Meds and New Rx's Prescriptions: Continued mirtazapine 15 mg tablet 15 mg PO DAILY RF: 0 ProAir RespiClick 90 MCG aerosol powdr breath activated 90 mcg Inhalation Q4H PRN PRNRF: 0 ketorolac 0.4 % drops 1 drp OP QID RF: 0 (DME) nebulizers Misc See Rx Instructions .ROUTE .MEDSUPPLY Qty: 1 RF: 0 (DME) oxygen-air delivery systems Device See Rx Instructions .ROUTE .MEDSUPPLY Qty: 1 RF: 0 ezetimibe [Zetia] 10 MG tablet 10 mg PO QAM RF: 0 isosorbide mononitrate 120 MG tablet extended release 24 hr 120 mg PO QAM RF: 0 atorvastatin [Lipitor] 80 MG tablet 80 mg PO HS RF: 0 ropinirole 2 MG tablet 2 mg PO HS RF: 0 multivitamin [Daily Multi-Vitamin] 1 EACH tablet 1 tab PO QAM RF: 0 tamsulosin 0.4 mg Capsule 0.4 mg PO DAILY RF: 0 omeprazole 20 MG capsule,delayed release(DR/EC) 40 mg PO DAILY RF: 0 aspirin 81 mg Tablet,Delayed Release (Dr/Ec) 81 mg PO DAILY Qty: 0 RF: 0 ferrous sulfate 325 mg (65 mg iron) Tablet 325 mg PO BID Qty: 0 RF: 0 Eliquis 5 mg Tablet 5 mg PO BID Qty: 60 RF: 0 metoprolol succinate 100 MG tablet extended release 24 hr 150 mg PO DAILY Qty: 45 RF: 0 furosemide [Lasix] 20 mg tablet 20 mg PO QAM Qty: 4 RF: 0 gabapentin 300 mg Capsule 400 mg PO HS RF: 0 Slow-Mag 71.5 mg Tablet,Delayed Release (Dr/Ec) 71.5 mg PO DAILY RF: 0 polyethylene glycol 3350 [Miralax] 17 gram Powder In Packet 17 g PO DAILY RF: 0 nitroglycerin [Nitrostat] 0.4 mg Tablet, Sublingual 0.4 mg sublingual PRN PRNRF: 0 fluoxetine 20 mg Capsule 20 mg PO DAILY RF: 0 fluticasone propionate [Flonase Allergy Relief] 50 mcg/actuation [place],Suspension 2 spray INTRANASAL DAILY RF: 0 budesonide-formoterol [Symbicort] 80-4.5 mcg/actuation Hfa Aerosol Inhaler 2 puff INHALATION BID RF: 0 levothyroxine 150 mcg tablet 150 mcg PO DAILY RF: 0 clotrimazole 1 % cream 1 applic TOPICAL DIRECTED PRNRF: 0 cholecalciferol (vitamin D3) 25 mcg (1,000 unit) tablet 1,000 unit PO DAILY RF: 0 metformin 500 mg tablet extended release 24 hr 500 mg PO DAILY RF: 0 lisinopril 2.5 mg tablet 2.5 mg PO DAILY RF: 0 Trulicity 1.5 mg/0.5 mL pen injector 1.5 mg SUBCUT DIRECTED RF: 0 Levemir FlexTouch U-100 Insuln 100 unit/mL (3 mL) insulin pen 25 unit SC DAILY RF: 0 Discharge Instructions Instructions: Lumbar Radiculopathy (ED), Diabetic Hyperglycemia (ED) Additional Instructions: Please take acetaminophen (tylenol) - 650mg every 6 hours by mouth as needed for pain. Take your gabapentin as prescribed. Use lidocaine patch [id number]?dose according to label. You were given regular insulin, 13 units today in the emergency department to reduce your glucose level. Continue to take your long-acting insulin and other diabetes medications as prescribed. Please contact your primary care physician to arrange follow-up. Call first thing Sunday. Be sure to monitor your blood sugar tomorrow and reduce carbohydrates in your diet. Return to the ER for any worsening or new concerning symptoms. Referrals: Abdullahi Gilliland [Primary Care Provider] - Medical Decision Making 0??69-year-old male with multiple medical problems including prior history of back pain, diabetes, here with left low lumbar paraspinal back pain radiating into his left anterior lateral thigh. Suspect lumbar radiculopathy. No rash. Patient is hyperglycemic per EMS. He has had medication changes recently and notes that he is currently only on long-acting insulin. Consider acidosis and will check chemistry. --Labs reviewed and no acidosis but does have significant hyperglycemia. Given his prior high sensitivity to insulin and concern for inducing hypoglycemia, I administered multiple smaller doses of regular insulin to lower his blood sugar below 300. Patient was reassessed and noted significant improvement in his back pain with lidocaine patch. Patient was encouraged to call his doctor first thing Lance morning to discuss hyperglycemia and likely need for medication adjustment. Patient was instructed Laboratory Tests Range/Units 01/31/20 01/31/20 16:35 16:35 WBC (4.4-10.8) 10^3/uL 6.12 RBC (4.36-5.78) 10^6/uL 4.23 L Hgb (13.5-17.5) g/dL 12.3 L Hct (40.0-50.0) % 37.3 L MCV (80-95) fL 88.2 MCH (27.0-33.0) pg 29.1 MCHC (32.0-36.0) % 33.0 RDW (11.8-14.1) % 15.5 H Plt Count (130-400) 10^3/uL 218 MPV (8.0-11.0) fL 9.9 Immature Gran % 0.3 Neutrophils % 63.3 Lymphocytes % 27.9 Monocytes % 5.9 Eosinophils % 1.8 Basophils % 0.8 Nucleated RBC % % 0 Absolute Neutrophils (1.2-6.7) 10^3/uL 3.87 Absolute Lymphocytes (1.2-3.4) 10^3/uL 1.71 Absolute Monocytes (0.1-0.8) 10^3/uL 0.36 Absolute Eosinophils (0.0-0.7) 10^3/uL 0.11 Absolute Basophils (0.0-0.2) 10^3/uL 0.05 Sodium (136-145) mmol/L 139 Potassium (3.5-5.1) mmol/L 3.6 Chloride (98-107) mmol/L 103 Carbon Dioxide (21.0-32.0) mmol/L 31.3 Anion Gap (3-11) mmol/L 4.7 BUN (7-18) mg/dL 12 Creatinine (0.70-1.30) mg/dL 1.28 Estimated GFR/1.73 m2 (mL/min/1.73m2) 56.06 Glucose (74-106) mg/dL 399 H Calcium (8.5-10.1) mg/dL 8.5 Total Bilirubin (0.2-1.0) mg/dL 1.7 H AST (15-37) U/L 18 ALT (16-63) U/L 19 Alkaline Phosphatase (46-116) U/L 113 Total Protein (6.4-8.2) g/dL 7.1 Albumin (3.4-5.0) g/dL 3.0 L to avoid any carbohydrate rich foods and monitor his blood sugar tomorrow. Patient was encouraged to return immediately for any worsening or new concerning symptoms. HPI General Mode of arrival: ambulatory. Date/Time Provider Initiated Documentation: 01/31/20 16:25. Limitations to Documentation: no limitations. Information obtained by: patient. HPI Narrative: 69-year-old male with multiple medical problems including prior history of low back pain, insulin-dependent diabetes, here with chief complaint of left leg pain. Patient notes he said pain in his left lower back radiating down his left anterior lateral thigh and down his lateral leg to his foot. Pain is been on and off for the past 1 week. Pain is described as sharp. He is concerned that it is sciatic pain. No associated swelling. No associated numbness or new weakness. No rash. Patient does note that he injects Truvada into his anterior left thigh about a week ago. Related Data Home Medications Medication Instructions Recorded Confirmed atorvastatin [Lipitor] 80 mg PO HS 01/05/14 01/31/20 ezetimibe [Zetia] 10 mg PO QAM 01/05/14 01/31/20 isosorbide mononitrate 120 mg PO QAM 01/05/14 01/31/20 multivitamin [Daily Multi-Vitamin] 1 tab PO QAM 01/05/14 01/31/20 ropinirole 2 mg PO HS 01/05/14 01/31/20 ProAir RespiClick 90 mcg INHALATION Q4H PRN PRN 07/10/17 01/31/20 mirtazapine 15 mg tablet 15 mg PO DAILY 07/23/18 01/31/20 gabapentin 400 mg PO HS 10/04/18 01/31/20 Slow-Mag 71.5 mg PO DAILY 10/18/18 01/31/20 ketorolac 0.4 % eye drops 1 drp OP QID 04/01/19 01/31/20 nebulizers #1 each 04/01/19 12/29/19 oxygen-air delivery systems #1 04/01/19 12/29/19 fluoxetine 20 mg PO DAILY 05/29/19 01/31/20 nitroglycerin [Nitrostat] 0.4 mg SUBLINGUAL PRN PRN 05/29/19 01/31/20 polyethylene glycol 3350 [Miralax] 17 g PO DAILY 05/29/19 01/31/20 tamsulosin 0.4 mg PO DAILY 07/18/19 01/31/20 budesonide-formoterol [Symbicort] 2 puff INHALATION BID 09/02/19 01/31/20 fluticasone propionate [Flonase 2 spray INTRANASAL DAILY 09/02/19 01/31/20 Allergy Relief] omeprazole 40 mg PO DAILY 09/03/19 01/31/20 aspirin 81 mg PO DAILY #0 tab 09/09/19 01/31/20 ferrous sulfate 325 mg PO BID #0 tab 09/09/19 01/31/20 Eliquis 5 mg PO BID #60 tab 11/11/19 01/31/20 metoprolol succinate 150 mg PO DAILY #45 tab 11/11/19 01/31/20 furosemide [Lasix] 20 mg PO QAM #4 tab 12/08/19 01/31/20 Levemir FlexTouch U-100 Insuln 25 unit SC DAILY 01/31/20 01/31/20 Trulicity 1.5 mg SUBCUT DIRECTED 01/31/20 01/31/20 cholecalciferol (vitamin D3) 1,000 unit PO DAILY 01/31/20 01/31/20 clotrimazole 1 applic TOPICAL DIRECTED PRN 01/31/20 01/31/20 levothyroxine 150 mcg PO DAILY 01/31/20 01/31/20 lisinopril 2.5 mg PO DAILY 01/31/20 01/31/20 metformin 500 mg PO DAILY 01/31/20 01/31/20 Previous Rx's Medication Instructions Recorded aspirin 81 mg PO DAILY #0 tab 09/09/19 ferrous sulfate 325 mg PO BID #0 tab 09/09/19 Eliquis 5 mg PO BID #60 tab 11/11/19 metoprolol succinate 150 mg PO DAILY #45 tab 11/11/19 furosemide [Lasix] 20 mg PO QAM #4 tab 12/08/19 Allergies Allergy/AdvReac Type Severity Reaction Status Date / Time No Known Allergies Allergy Verified 01/31/20 16:29 General Stated Complaint: Orthopedic DAYLIN: 3 Review of Systems All systems reviewed & are unremarkable except as noted in HPI and below Constitutional Constitutional: Denies fever(s) Musculoskeletal Musculoskeletal: Reports as per HPI Integumentary/Breasts Skin/Breast: Reports as per HPI Neurologic Neurologic: Reports as per HPI [facility] Medical History Anxiety with depression Aortic valve replaced Back pain CAD (coronary artery disease) COPD (chronic obstructive pulmonary disease) CVA (cerebral vascular accident) Diabetic neuropathy DM (diabetes mellitus) GERD (gastroesophageal reflux disease) H/O: HTN (hypertension) Hematuria HFrEF (heart failure with reduced ejection fraction) History of bloody stools HTN (hypertension) Hx of fall Hyperlipidemia Hypothyroidism Hypothyroidism (acquired) Insomnia Memory impairment Obesity IVETTE (obstructive sleep apnea) IVETTE on CPAP Pacemaker Paroxysmal atrial fibrillation Passive suicidal ideations Perforated tympanic membrane Polypharmacy Proteinuria Rash, skin Renal insufficiency Sick sinus syndrome Sinus node dysfunction Tinea cruris Surgical History Coronary Artery Bypass [place] (CABG) Coronary Stent CABGx4 H/O carotid endarterectomy Pacemaker Replacement of aortic valve Family History Other Cancer Heart disease Social History Smoking/Tobacco Use Status: Never Smoking risk assessment performed?: Yes Alcohol Intake: former Drug use: Never Substance use type: does not use Details: Pt reports no alcohol since his heart attack 1995 Household members: none Housing: other Details: [facility] Number of Children: 2 current occupation: Lives at [facility]. Disabled since . Seatbelt use: always Do you feel safe at home: Yes Do you feel safe in your relationship?: Yes Additional Social history: lives alone, [facility] comes in to assiste pt. Reports safety issue regarding leg giving out. Exam Const General: cooperative and no acute distress HENMT Mouth: moist mucous membranes Eyes Conjunctivae: normal conjunctivae Sclera: normal sclerae Resp Auscultation: clear to auscultation bilaterally, no rales, no rhonchi and no wheezes Cardio Rate: regular rate and not tachycardic Rhythm: regular rhythm Pulses: dorsalis pedis present on the left 1+ GI Palpation: soft, not firm, no guarding, no masses, not rigid and nontender Back/Spine/Pelvis Back: No erythema, No warmth and No ecchymosis Thoracic/Lumbar Spine: paraspinal tenderness (Left lumbar), No thoracic spinal tenderness and No lumbar spinal tenderness Skin General skin exam: no rashes or lesions noted Neuro General: patient alert, patient awake and tone normal Extrem Left lower extremity: hip/thigh Details: no tenderness, no swelling, no deformity and no unusual warmth Psych Appearance: grossly normal Mental Status: mental status grossly normal Course Vital Signs Vital signs: Vital Signs Temperature 36.6 C 01/31/20 16:25 Pulse 71 01/31/20 16:25 Respiratory Rate 16 01/31/20 16:25 Blood Pressure 180/71 H 01/31/20 16:25 Pulse Oximetry 98 01/31/20 16:25 Temperature 36.6 C 01/31/20 16:25 Temperature Source Tympanic 01/31/20 16:25 Pulse 71 01/31/20 16:25 Respiratory Rate 16 01/31/20 16:25 Respiratory Effort Non-Labored 01/31/20 16:28 Blood Pressure 180/71 H 01/31/20 16:25 Blood Pressure Position Sitting 01/31/20 16:25 Pulse Oximetry 98 01/31/20 16:25 Oxygen Delivery Method Room Air 01/31/20 16:25 Oxygen Flow Rate 0 01/31/20 16:25 Pain Level 10 01/31/20 16:48
[2020-01-31 17:09] LABS: ALT 19 U/L (16-63); AST 18 U/L (15-37); Alkaline Phosphatase 113 U/L (46-116); Anion Gap 4.7 mmol/L (3-11); BUN 12 mg/dL (7-18); Bilirubin, Total 1.7 mg/dL (0.2-1.0); CO2 31.3 mmol/L (21.0-32.0); CREATININE 1.28 mg/dL (0.70-1.30); Calcium 8.5 mg/dL (8.5-10.1); Chloride 103 mmol/L (98-107); Estimated GFR 56.06 (mL/min/1.73m2); Glucose 399 mg/dL (74-106); Potassium 3.6 mmol/L (3.5-5.1); Sodium 139 mmol/L (136-145); Total Protein 7.1 g/dL (6.4-8.2)
[2020-01-31] MEDS: Insulin REGULAR-Human 100 UNITS/ML UNIT SC ×3 (17:57→20:50)
--- NOTE | 2020-01-31 22:16 | NUR.NOTE ---
Nursing Note: Faxed referral to PCP-Dr. Gilliland at [facility] at fax#[phone] for Sunday
== END 2020-01-31 22:09 | disposition home or self-care (01) ==
LOC: ER 18:02
PROVIDERS: Emergency Provider Student in an Organized Health Care Education/Training Program; PCP Family Medicine
DX: M54.16 Radiculopathy, lumbar region (principal); E11.65 Type 2 diabetes mellitus with hyperglycemia; Z79.4 Long term (current) use of insulin; I12.9 Hypertensive chronic kidney disease with stage 1 through stage 4 chronic kidney disease, or unspecified chronic kidney disease; N18.9 Chronic kidney disease, unspecified; J44.9 Chronic obstructive pulmonary disease, unspecified
CPT/HCPCS: 36415; 36416; 80053; 82962; 96372; 99284; 85025

== ENCOUNTER 2020-02-14 01:59 | Emergency (ER) | payer OTHER, MEDICAID, SELFPAY ==
[2020-02-14 01:58] VITALS: BP 137/93; PULSE 69; RESP 14; TEMP 36.9; O2SAT 100
--- NOTE | 2020-02-14 02:01 | W.ED.GENAD ---
Discharge Plan Disposition Patient Disposition: HOME Condition: Good Discharge Details Clinical Impression: Traumatic hematoma of scalp Primary Care Provider: Abdullahi Gilliland ED Provider: Jaylen España Meds and New Rx's Prescriptions: Continued mirtazapine 15 mg tablet 15 mg PO DAILY RF: 0 ProAir RespiClick 90 MCG aerosol powdr breath activated 90 mcg Inhalation Q4H PRN PRNRF: 0 ketorolac 0.4 % drops 1 drp OP QID RF: 0 (DME) nebulizers Misc See Rx Instructions .ROUTE .MEDSUPPLY Qty: 1 RF: 0 (DME) oxygen-air delivery systems Device See Rx Instructions .ROUTE .MEDSUPPLY Qty: 1 RF: 0 ezetimibe [Zetia] 10 MG tablet 10 mg PO QAM RF: 0 isosorbide mononitrate 120 MG tablet extended release 24 hr 120 mg PO QAM RF: 0 atorvastatin [Lipitor] 80 MG tablet 80 mg PO HS RF: 0 ropinirole 2 MG tablet 2 mg PO HS RF: 0 multivitamin [Daily Multi-Vitamin] 1 EACH tablet 1 tab PO QAM RF: 0 tamsulosin 0.4 mg Capsule 0.4 mg PO DAILY RF: 0 omeprazole 20 MG capsule,delayed release(DR/EC) 40 mg PO DAILY RF: 0 aspirin 81 mg Tablet,Delayed Release (Dr/Ec) 81 mg PO DAILY Qty: 0 RF: 0 ferrous sulfate 325 mg (65 mg iron) Tablet 325 mg PO BID Qty: 0 RF: 0 Eliquis 5 mg Tablet 5 mg PO BID Qty: 60 RF: 0 metoprolol succinate 100 MG tablet extended release 24 hr 150 mg PO DAILY Qty: 45 RF: 0 furosemide [Lasix] 20 mg tablet 20 mg PO QAM Qty: 4 RF: 0 gabapentin 300 mg Capsule 400 mg PO HS RF: 0 Slow-Mag 71.5 mg Tablet,Delayed Release (Dr/Ec) 71.5 mg PO DAILY RF: 0 polyethylene glycol 3350 [Miralax] 17 gram Powder In Packet 17 g PO DAILY RF: 0 nitroglycerin [Nitrostat] 0.4 mg Tablet, Sublingual 0.4 mg sublingual PRN PRNRF: 0 fluoxetine 20 mg Capsule 20 mg PO DAILY RF: 0 fluticasone propionate [Flonase Allergy Relief] 50 mcg/actuation [place],Suspension 2 spray INTRANASAL DAILY RF: 0 budesonide-formoterol [Symbicort] 80-4.5 mcg/actuation Hfa Aerosol Inhaler 2 puff INHALATION BID RF: 0 levothyroxine 150 mcg tablet 150 mcg PO DAILY RF: 0 clotrimazole 1 % cream 1 applic TOPICAL DIRECTED PRNRF: 0 cholecalciferol (vitamin D3) 25 mcg (1,000 unit) tablet 1,000 unit PO DAILY RF: 0 metformin 500 mg tablet extended release 24 hr 500 mg PO DAILY RF: 0 lisinopril 2.5 mg tablet 2.5 mg PO DAILY RF: 0 Trulicity 1.5 mg/0.5 mL pen injector 1.5 mg SUBCUT DIRECTED RF: 0 Levemir FlexTouch U-100 Insuln 100 unit/mL (3 mL) insulin pen 28 unit SC DAILY RF: 0 Discharge Instructions Additional Instructions: Your CT scan showed no evidence of bleed. You may continue Tylenol as needed for headache. Continue other medications as before. Follow-up with primary care as needed. Return to ED for neurologic changes, vomiting, or other concerns. Referrals: Abdullahi Gilliland [Primary Care Provider] - Medical Decision Making Patient presenting status post head injury 12 hours ago with headache, nausea, unsteadiness though has history of same and had left lower extremity weakness from previous stroke. He is on Eliquis. Cervical spine cleared clinically. Head CT ordered. CT head negative for intracranial hemorrhage. Patient be discharged home to continue current medications and follow-up with primary care as needed. Tylenol Motrin for headache. Return to ED for any problems. HPI General Mode of arrival: EMS. Date/Time Provider Initiated Documentation: 02/14/20 02:01. Limitations to Documentation: no limitations. Information obtained by: patient, RN notes reviewed and old records reviewed. HPI Narrative: Patient presenting to the ED by ambulance with complaint of fall approximately 12 hours ago. Did strike the back of the head. He is on Eliquis. He was not seen after the fall. However, tonight he is having posterior head pain, nausea, and feeling more unsteady than usual. He is chronically unsteady and has residual left-sided deficits from previous stroke. A power wheelchair has been ordered for him but has not come in yet. He denies neck pain. He denies fever, cough, shortness of breath, loss of taste or smell, vomiting, abdominal pain, diarrhea, urinary symptoms. Related Data Home Medications Medication Instructions Recorded Confirmed atorvastatin [Lipitor] 80 mg PO HS 01/05/14 02/14/20 ezetimibe [Zetia] 10 mg PO QAM 01/05/14 02/14/20 isosorbide mononitrate 120 mg PO QAM 01/05/14 02/14/20 multivitamin [Daily Multi-Vitamin] 1 tab PO QAM 01/05/14 02/14/20 ropinirole 2 mg PO HS 01/05/14 02/14/20 ProAir RespiClick 90 mcg INHALATION Q4H PRN PRN 07/10/17 02/14/20 mirtazapine 15 mg tablet 15 mg PO DAILY 07/23/18 02/14/20 gabapentin 400 mg PO HS 10/04/18 02/14/20 Slow-Mag 71.5 mg PO DAILY 10/18/18 02/14/20 ketorolac 0.4 % eye drops 1 drp OP QID 04/01/19 02/14/20 nebulizers #1 each 04/01/19 12/29/19 oxygen-air delivery systems #1 04/01/19 12/29/19 fluoxetine 20 mg PO DAILY 05/29/19 02/14/20 nitroglycerin [Nitrostat] 0.4 mg SUBLINGUAL PRN PRN 05/29/19 02/14/20 polyethylene glycol 3350 [Miralax] 17 g PO DAILY 05/29/19 02/14/20 tamsulosin 0.4 mg PO DAILY 07/18/19 02/14/20 budesonide-formoterol [Symbicort] 2 puff INHALATION BID 09/02/19 02/14/20 fluticasone propionate [Flonase 2 spray INTRANASAL DAILY 09/02/19 02/14/20 Allergy Relief] omeprazole 40 mg PO DAILY 09/03/19 02/14/20 aspirin 81 mg PO DAILY #0 tab 09/09/19 02/14/20 ferrous sulfate 325 mg PO BID #0 tab 09/09/19 02/14/20 Eliquis 5 mg PO BID #60 tab 11/11/19 02/14/20 metoprolol succinate 150 mg PO DAILY #45 tab 11/11/19 02/14/20 furosemide [Lasix] 20 mg PO QAM #4 tab 12/08/19 02/14/20 Levemir FlexTouch U-100 Insuln 28 unit SC DAILY 01/31/20 02/14/20 Trulicity 1.5 mg SUBCUT DIRECTED 01/31/20 02/14/20 cholecalciferol (vitamin D3) 1,000 unit PO DAILY 01/31/20 02/14/20 clotrimazole 1 applic TOPICAL DIRECTED PRN 01/31/20 01/31/20 levothyroxine 150 mcg PO DAILY 01/31/20 01/31/20 lisinopril 2.5 mg PO DAILY 01/31/20 01/31/20 metformin 500 mg PO DAILY 01/31/20 01/31/20 Previous Rx's Medication Instructions Recorded aspirin 81 mg PO DAILY #0 tab 09/09/19 ferrous sulfate 325 mg PO BID #0 tab 09/09/19 Eliquis 5 mg PO BID #60 tab 11/11/19 metoprolol succinate 150 mg PO DAILY #45 tab 11/11/19 furosemide [Lasix] 20 mg PO QAM #4 tab 12/08/19 Allergies Allergy/AdvReac Type Severity Reaction Status Date / Time No Known Allergies Allergy Verified 02/14/20 02:10 General DAYLIN: 3 Review of Systems Narrative: As documented in HPI otherwise negative as below. Const: no fever, chills, weakness Resp: no cough, SOB, pleuritic pain CV: no CP, diaphoresis, edema, syncope GI: no abdominal pain, vomiting, diarrhea Neuro: no numbness, confusion PFSH Medical History Anxiety with depression Aortic valve replaced Back pain CAD (coronary artery disease) COPD (chronic obstructive pulmonary disease) CVA (cerebral vascular accident) Diabetic neuropathy DM (diabetes mellitus) GERD (gastroesophageal reflux disease) H/O: HTN (hypertension) Hematuria HFrEF (heart failure with reduced ejection fraction) History of bloody stools HTN (hypertension) Hx of fall Hyperlipidemia Hypothyroidism Hypothyroidism (acquired) Insomnia Memory impairment Obesity IVETTE (obstructive sleep apnea) IVETTE on CPAP Pacemaker Paroxysmal atrial fibrillation Passive suicidal ideations Perforated tympanic membrane Polypharmacy Proteinuria Rash, skin Renal insufficiency Sick sinus syndrome Sinus node dysfunction Tinea cruris Surgical History Coronary Artery Bypass [place] (CABG) Coronary Stent CABGx4 H/O carotid endarterectomy Pacemaker Replacement of aortic valve Family History Other Cancer Heart disease Social History Smoking/Tobacco Use Status: Never Smoking risk assessment performed?: Yes Alcohol Intake: former Drug use: Never Substance use type: does not use Details: Pt reports no alcohol since his heart attack 1995 Household members: none Housing: other Details: [facility] Number of Children: 2 current occupation: Lives at [facility]. Disabled since . Seatbelt use: always Do you feel safe at home: Yes Do you feel safe in your relationship?: Yes Additional Social history: lives alone, area [facility] comes in to assiste pt. Reports safety issue regarding leg giving out. Exam Narrative Exam Narrative: Const: Morbidly obese elderly male in NAD. HEENT: NC. Posterior scalp hematoma noted. normal facial exam. Neck: Supple. Trachea midline. No C-spine tenderness. Lungs: Normal respiratory effort. GI: Soft. NT/ND. No guarding or rebound. Neuro: A+O x 3. Normal speech, mentation. Cranial nerves II - XII grossly intact. Left lower extremity weakness, chronic and unchanged. Good strength in upper extremities and right lower extremities. Sensation intact.
--- NOTE | 2020-02-14 02:44 | DI.CT_ITS ---
EXAM: CT HEAD WO CLINICAL HISTORY: fell earlier today; headache; on Eliquis. TECHNIQUE: Imaging Protocol: Axial computed tomography images with coronal and sagittal reformatted images were created and reviewed COMPARISON: CT CT BRAIN NECK CTA from 12/11/2019 FINDINGS: There is moderate generalized cerebral atrophy. There is an old right occipital infarct and there is a right basal ganglia lacunar infarct. No evidence of acute intracranial hemorrhage, mass effect, or midline shift. The orbital structures are unremarkable. The temporal bone structures appear intact. Calvarium: Normal. Visualized Paranasal sinuses/Mastoids: Clear. IMPRESSION: Normal cranial CT. RADIATION DOSE DELIVERED: 804.21mGy.cm Total DLP 804.21mGy.cm Total DLP DATA REPOSITORY: All CT scans at this facility are submitted to the National Radiology Data Registry (NRDR) Dose Index Registry (DIR) with the [employer] ([employer]). RADIATION OPTIMIZATION: All CT scans at this facility use at least one of these dose optimization te chniques: automated exposure control; mA and/or kV adjustment per patient size (includes targeted exa ms where dose is matched to clinical indication); or iterative reconstruction.
--- NOTE | 2020-02-14 02:53 | DI.VRAD_ITS ---
PROCEDURE INFORMATION: Exam: CT Head Without Contrast Exam date and time: 02/14/2020 2:22 AM Age: 69 years old Clinical indication: Injury or trauma; Fall; Blunt trauma (contusions or hematomas); Without loss of consciousness; Injury date: 02/13/20; Injury details: Fell earlier today, headache, on eliquis TECHNIQUE: Imaging protocol: Computed tomography of the head without contrast. Radiation optimization: All CT scans at this facility use at least one of these dose optimization techniques: automated exposure control; mA and/or kV adjustment per patient size (includes targeted exams where dose is matched to clinical indication); or iterative reconstruction. COMPARISON: CT HEAD - STROKE PROTOCOL 09/03/2019 8:01 AM FINDINGS: Brain: Encephalomalacia right MEDICAL REPRESENTATIVE territory. No acute territorial infarct. No acute intracranial hemorrhage. Cerebral ventricles: No ventriculomegaly. Bones/joints: Unremarkable. No acute fracture. Paranasal sinuses: Visualized sinuses are unremarkable. No fluid levels. Mastoid air cells: Visualized mastoid air cells are well aerated. Soft tissues: Unremarkable. IMPRESSION: No acute intracranial findings. Dictated and Authenticated by: Drake Peoples MD. Ordering:KARLO York MD
[2020-02-14 02:58] VITALS: BP 153/79; PULSE 66; RESP 14; O2SAT 96
[2020-02-14 03:40] VITALS: BP 153/79; PULSE 66; RESP 14; O2SAT 96
== END 2020-02-14 05:55 | disposition home or self-care (01) ==
LOC: ER 03:40
PROVIDERS: Emergency Provider Emergency Medicine; PCP Family Medicine
DX: S00.03XA Contusion of scalp, initial encounter (principal); W19.XXXA Unspecified fall, initial encounter; R51.9 Headache, unspecified; R11.0 Nausea; Z79.01 Long term (current) use of anticoagulants; I12.9 Hypertensive chronic kidney disease with stage 1 through stage 4 chronic kidney disease, or unspecified chronic kidney disease; N18.9 Chronic kidney disease, unspecified; E11.22 Type 2 diabetes mellitus with diabetic chronic kidney disease; Z79.4 Long term (current) use of insulin; J44.9 Chronic obstructive pulmonary disease, unspecified
CPT/HCPCS: 36415; 96365; 96368; 96375; 99284; 99285; 70450; 99283

== ENCOUNTER 2020-02-14 17:49 | Inpatient (IN) | payer OTHER, MEDICAID, SELFPAY ==
[2020-02-14] VITALS (11 sets, daily range): BP systolic 160–184; BP diastolic 78–116; PULSE 80–86; RESP 10–18; TEMP 36–37.2; O2SAT 96–99
--- NOTE | 2020-02-14 17:45 | RT.EKG_ITS ---
APPROVED REPORT Exam: Resting ECG Patient Location: E HR:82 bpm ECG Measurements Heart Rate 82 AXIS LA 199 P 50 QRSd 160 QRS -43 QT 433 T 87 QTc 503 Conclusion Sinus rhythm...normal P axis, V-rate 60- 99 Multiform ventricular premature complexes...short R-R, variable morphology Right bundle branch block...QRSd>120, terminal axis(90,270) Inferior infarct, old...Q >35mS, II III aVF
--- NOTE | 2020-02-14 17:48 | ED.GENADUL_ITS ---
Discharge Plan Disposition Patient Disposition: [facility] INPATIENT Condition: Stable Discharge Details Clinical Impression: Nausea & vomiting, Unsteady, Concussion Primary Care Provider: Abdullahi Gilliland ED Provider: Drake Vasquez Nemo Meds and New Rx's Prescriptions: No Action mirtazapine 15 mg tablet 15 mg PO DAILY RF: 0 ProAir RespiClick 90 MCG aerosol powdr breath activated 90 mcg Inhalation Q4H PRN PRNRF: 0 ketorolac 0.4 % drops 1 drp OP QID RF: 0 (DME) nebulizers Misc See Rx Instructions .ROUTE .MEDSUPPLY Qty: 1 RF: 0 (DME) oxygen-air delivery systems Device See Rx Instructions .ROUTE .MEDSUPPLY Qty: 1 RF: 0 ezetimibe [Zetia] 10 MG tablet 10 mg PO QAM RF: 0 isosorbide mononitrate 120 MG tablet extended release 24 hr 120 mg PO QAM RF: 0 atorvastatin [Lipitor] 80 MG tablet 80 mg PO HS RF: 0 ropinirole 2 MG tablet 2 mg PO HS RF: 0 multivitamin [Daily Multi-Vitamin] 1 EACH tablet 1 tab PO QAM RF: 0 tamsulosin 0.4 mg Capsule 0.4 mg PO DAILY RF: 0 omeprazole 20 MG capsule,delayed release(DR/EC) 40 mg PO DAILY RF: 0 aspirin 81 mg Tablet,Delayed Release (Dr/Ec) 81 mg PO DAILY Qty: 0 RF: 0 ferrous sulfate 325 mg (65 mg iron) Tablet 325 mg PO BID Qty: 0 RF: 0 Eliquis 5 mg Tablet 5 mg PO BID Qty: 60 RF: 0 metoprolol succinate 100 MG tablet extended release 24 hr 150 mg PO DAILY Qty: 45 RF: 0 furosemide [Lasix] 20 mg tablet 20 mg PO QAM Qty: 4 RF: 0 gabapentin 300 mg Capsule 400 mg PO HS RF: 0 Slow-Mag 71.5 mg Tablet,Delayed Release (Dr/Ec) 71.5 mg PO DAILY RF: 0 polyethylene glycol 3350 [Miralax] 17 gram Powder In Packet 17 g PO DAILY RF: 0 nitroglycerin [Nitrostat] 0.4 mg Tablet, Sublingual 0.4 mg sublingual PRN PRNRF: 0 fluoxetine 20 mg Capsule 20 mg PO DAILY RF: 0 fluticasone propionate [Flonase Allergy Relief] 50 mcg/actuation [place],Suspension 2 spray INTRANASAL DAILY RF: 0 budesonide-formoterol [Symbicort] 80-4.5 mcg/actuation Hfa Aerosol Inhaler 2 puff INHALATION BID RF: 0 levothyroxine 150 mcg tablet 150 mcg PO DAILY RF: 0 clotrimazole 1 % cream 1 applic TOPICAL DIRECTED PRNRF: 0 cholecalciferol (vitamin D3) 25 mcg (1,000 unit) tablet 1,000 unit PO DAILY RF: 0 metformin 500 mg tablet extended release 24 hr 500 mg PO DAILY RF: 0 lisinopril 2.5 mg tablet 2.5 mg PO DAILY RF: 0 Trulicity 1.5 mg/0.5 mL pen injector 1.5 mg SUBCUT DIRECTED RF: 0 Levemir FlexTouch U-100 Insuln 100 unit/mL (3 mL) insulin pen 28 unit SC DAILY RF: 0 Medical Decision Making 69 year old male with PMHx of CAD, chronic systolic CHF with EF of 35-40%, prior CVA, hypertension, and poorly controlled insulin-dependent diabetes mellitus type II comes in with feeling dizzy and n/v. He was seen earlier this morning after a fall and had a negative ct of the head and was d/c'd home. He comes back in for n/v throughout the day and feeling dizzy and unsteady. Denies fevers, severe head pain, abdominal pain but when he does vomit he has pain in right oblique area without abdominal tenderness. He fell aroud 3pm yesterday after going to the bathroom and hit his head on the floor, no loc. No chest pain or dyspnea and no fevers. Suspect concussion as cause of his symptoms but given worsening n/v and dizziness potential for delayed bleed especially being on eliquis, will obtain ct head to evaluate for possible ich and also renal colic ct and reassess. labs show mild hypokalemia and also hypomagnesemia otherwise no significant findings on labs, imaging on my read shows no acute findings. He still has n/v and feels unsteady and doesn't feel safe going home, will discuss with hospialist about admission for concussion Differential Diagnosis Differential Diagnosis: concussion, tbi, electrolyte abnormality Medical Records Medical records reviewed: Yes I reviewed the patient's medical records. Imaging Data Radiologic Study: Attestation: I personally reviewed and interpreted this imaging study as follows: Imaging: CT Scan Radiologist's impression: IMPRESSION: 1. No acute intracranial findings. 2. Right supratentorial infarcts, chronic and stable Radiologic Study #2: Attestation: I personally reviewed and interpreted this imaging study as follows: Imaging: CT Scan Radiologist's impression: IMPRESSION: 1. Mild stranding surrounding the tail the pancreas which may represent pancreatitis. Correlation with an amylase and lipase is suggested. No pseudocyst. 2. Bilateral renal cysts. A possible enlarging intermediate density lesion is seen within the inferior pole of the right kidney. This warrants further evaluation with a renal mass protocol CT or MRI study. 3. Small hiatal hernia. Probable mild gastritis. 4. Mild wall thickening within the lower rectum, suggesting mild proctitis. 5. Stable mild circumferential wall thickening within the urinary bladder, suggesting chronic cystitis or possibly chronic bladder outlet obstruction. 6. Small right-sided inguinal hernia Lab Data Lab results reviewed: Yes I reviewed the patient's lab results. ECG Data Attestation: I personally reviewed and interpreted this ECG (s) as follows: Prior ECG tracings: available for review Interpretation: sinus rhythm, rate of 82, qtc 433, pr 199, no acute changes from prior HPI General Mode of arrival: EMS . Date/Time Provider Initiated Documentation: 02/14/20 17:57 . Limitations to Documentation: no limitations . Information obtained by: patient . History of Present Illness 69 year old M presents to the emergency department with the chief complaint of dizziness, described as moderate, and it has been constant. No relieving factors i mprove symptom(s), No exacerbating factors reported . Patient did receive the following treatments prior to arrival, none Related Data Home Medications Medication Instructions Recorded Confirmed atorvastatin [Lipitor] 80 mg PO HS 01/05/14 02/14/20 ezetimibe [Zetia] 10 mg PO QAM 01/05/14 02/14/20 isosorbide mononitrate 120 mg PO QAM 01/05/14 02/14/20 multivitamin [Daily Multi-Vitamin] 1 tab PO QAM 01/05/14 02/14/20 ropinirole 2 mg PO HS 01/05/14 02/14/20 ProAir RespiClick 90 mcg INHALATION Q4H PRN PRN 07/10/17 02/14/20 mirtazapine 15 mg tablet 15 mg PO DAILY 07/23/18 02/14/20 gabapentin 400 mg PO HS 10/04/18 02/14/20 Slow-Mag 71.5 mg PO DAILY 10/18/18 02/14/20 ketorolac 0.4 % eye drops 1 drp OP QID 04/01/19 02/14/20 nebulizers #1 each 04/01/19 12/29/19 oxygen-air delivery systems #1 04/01/19 12/29/19 fluoxetine 20 mg PO DAILY 05/29/19 02/14/20 nitroglycerin [Nitrostat] 0.4 mg SUBLINGUAL PRN PRN 05/29/19 02/14/20 polyethylene glycol 3350 [Miralax] 17 g PO DAILY 05/29/19 02/14/20 tamsulosin 0.4 mg PO DAILY 07/18/19 02/14/20 budesonide-formoterol [Symbicort] 2 puff INHALATION BID 09/02/19 02/14/20 fluticasone propionate [Flonase 2 spray INTRANASAL DAILY 09/02/19 02/14/20 Allergy Relief] omeprazole 40 mg PO DAILY 09/03/19 02/14/20 aspirin 81 mg PO DAILY #0 tab 09/09/19 02/14/20 ferrous sulfate 325 mg PO BID #0 tab 09/09/19 02/14/20 Eliquis 5 mg PO BID #60 tab 11/11/19 02/14/20 metoprolol succinate 150 mg PO DAILY #45 tab 11/11/19 02/14/20 furosemide [Lasix] 20 mg PO QAM #4 tab 12/08/19 02/14/20 Levemir FlexTouch U-100 Insuln 28 unit SC DAILY 01/31/20 02/14/20 Trulicity 1.5 mg SUBCUT DIRECTED 01/31/20 02/14/20 cholecalciferol (vitamin D3) 1,000 unit PO DAILY 01/31/20 02/14/20 clotrimazole 1 applic TOPICAL DIRECTED PRN 01/31/20 02/14/20 levothyroxine 150 mcg PO DAILY 01/31/20 02/14/20 lisinopril 2.5 mg PO DAILY 01/31/20 02/14/20 metformin 500 mg PO DAILY 01/31/20 02/14/20 Previous Rx's Medication Instructions Recorded aspirin 81 mg PO DAILY #0 tab 09/09/19 ferrous sulfate 325 mg PO BID #0 tab 09/09/19 Eliquis 5 mg PO BID #60 tab 11/11/19 metoprolol succinate 150 mg PO DAILY #45 tab 11/11/19 furosemide [Lasix] 20 mg PO QAM #4 tab 12/08/19 Allergies Allergy/AdvReac Type Severity Reaction Status Date / Time No Known Allergies Allergy Verified 02/14/20 18:13 General [place]: 3 Review of Systems All systems reviewed & are unremarkable except as noted in HPI and below Constitutional Constitutional: Denies chills, Denies fever(s) and Denies weakness Cardiovascular Cardiovascular: Denies chest pain and Denies dyspnea Respiratory Respiratory: Denies cough and Denies dyspnea Gastrointestinal Gastrointestinal: Denies abdominal pain Musculoskeletal Musculoskeletal: Denies joint swelling Neurologic Neurologic: Denies weakness [facility] Medical History Anxiety with depression Aortic valve replaced Back pain CAD (coronary artery disease) COPD (chronic obstructive pulmonary disease) CVA (cerebral vascular accident) Diabetic neuropathy DM (diabetes mellitus) GERD (gastroesophageal reflux disease) H/O: HTN (hypertension) Hematuria HFrEF (heart failure with reduced ejection fraction) History of bloody stools HTN (hypertension) Hx of fall Hyperlipidemia Hypothyroidism Hypothyroidism (acquired) Insomnia Memory impairment Obesity IVETTE (obstructive sleep apnea) IVETTE on CPAP Pacemaker Paroxysmal atrial fibrillation Passive suicidal ideations Perforated tympanic membrane Polypharmacy Proteinuria Rash, skin Renal insufficiency Sick sinus syndrome Sinus node dysfunction Tinea cruris Surgical History Coronary Artery Bypass Gaft (CABG) Coronary Stent CABGx4 H/O carotid endarterectomy Pacemaker Replacement of aortic valve Family History Other Cancer Heart disease Social History Smoking/Tobacco Use Status: Never Smoking risk assessment performed?: Yes Alcohol Intake: former Drug use: Never Substance use type: does not use Details: Pt reports no alcohol since his heart attack 1995 Household members: none Housing: other Details: [facility] Number of Children: 2 current occupation: Lives at [employer]. Disabled since . Seatbelt use: always Do you feel safe at home: Yes Do you feel safe in your relationship?: Yes Additional Social history: lives alone, area on aging comes in to assiste pt. Reports safety issue regarding leg giving out. Exam Const General: no acute distress Orientation: alert HENMT Head: normal to inspection Ears: external ears normal General nose exam: external nose normal Mouth: moist mucous membranes Eyes General: appearance normal, both eyes and all related structures Neck Neck: normal visual inspection Resp Effort & Inspection: normal respiratory effort and able to speak in complete sentences Cardio Rate: regular rate Skin General skin exam: no rashes or lesions noted Neuro General: patient alert and patient oriented x3 Extrem General: normal to inspection Psych Mental Status: mental status grossly normal
--- NOTE | 2020-02-14 18:00 | DI.CT_ITS ---
EXAM: CT HEAD WO CLINICAL HISTORY: fall, worsening n/v and dizziness. TECHNIQUE: Imaging Protocol: Axial computed tomography images with coronal and sagittal reformatted images were created and reviewed COMPARISON: CT CT HEAD WO from 02/14/2020 FINDINGS: There are no skull fractures nor fluid in the visualized paranasal sinuses. There is no evidence of intracranial hemorrhage, mass effect, or shift of midline structures. There are no extra-axial fluid collections. The ventricles are not enlarged or shifted and there is no blo od within the ventricular system nor within the basal cisterns. Symmetrical bifrontal atrophy noted. Also evidence of prior infarction in the right occipital lobe, unchanged, with an element of mild ex vacuo dilatation of the ipsilateral atrium of the right lateral ventricle.. There is heavy calcification in the left vertebral artery at the skull base noted. IMPRESSION: No acute intracranial findings on this noninfused CT scan of the brain. Stable appearing post ischemic findings, as described above. RADIATION DOSE DELIVERED: 778.99mGy.cm Total DLP 778.99mGy.cm Total DLP DATA REPOSITORY: All CT scans at this facility are submitted to the National Radiology Data Registry (NRDR) Dose Index Registry (DIR) with the [employer] ([employer]). RADIATION OPTIMIZATION: All CT scans at this facility use at least one of these dose optimization te chniques: automated exposure control; mA and/or kV adjustment per patient size (includes targeted exa ms where dose is matched to clinical indication); or iterative reconstruction.
--- NOTE | 2020-02-14 18:03 | DI.CT_ITS ---
EXAM: CT RENAL COLIC WO CLINICAL HISTORY: nausea and vomit flank pain. TECHNIQUE: Imaging Protocol: Axial computed tomography images with coronal and sagittal reformatted images were created and reviewed CONTRAST MATERIAL: Intravenous: none Oral: None COMPARISON: CT CT ABDOMEN PELVIS W from 12/28/[address] ABDOMEN PELVIS W from 12/28/[address] CHEST PE CTA from 11/09/[address] CHEST PE CTA from 11/09/[address] BRAIN NECK CTA from 12/11/2019 FINDINGS: VISUALIZED LUNG BASES: No nodules nor pleural effusions evident. Sternotomy wires. Bipolar cardiac pacemaker leads. ABDOMEN: There is no ascites. LIVER: There are no obvious focal hepatic lesions evident of this noninfused study. GALLBLADDER/BILIARY: No obvious gallbladder pathology. CBD is not dilated. PANCREAS: There is some streaking in the fat adjacent to the pancreatic tail, possibly an element of pancreatitis. There is no obvious mass in the pancreas evident on this noninfused study. No dilatat ion of pancreatic duct. SPLEEN: Spleen is not enlarged. No obvious intrasplenic lesions. ADRENALS: There are no significant adrenal masses. KIDNEYS: There is a cyst in the inferior pole of the right kidney which measures 4 x 3.5 centimetres. . Smaller cyst is seen in the opposite-left kidney. Abnormal nodular density in the right kidney no noel which measures approximately 2.2 by 1.9 centimetres. This is possibly a solid lesion and require s workup. Difficult to assess probably on this noninfused study.. ABDOMINAL AORTA: Abdominal aorta is not enlarged and there is no [id number] adenopat hy. ABDOMINAL WALL/GI: No evidence of signature anterior abdominal wall hernia. No bowel obstruction. PELVIS: LYMPH NODES: There is no intrapelvic nor inguinal adenopathy. GI: No evidence of appendicitis.No evidence of sigmoid diverticulitis.Mild perirectal fat stranding w hich may be related to proctitis. URINARY BLADDER: No calculi nor obvious masses evident REPRODUCTIVE: Prostate not enlarged OSSEOUS: No significant osseous lesions. IMPRESSION: 1. There is some abnormal stranding around the tail the pancreas consistent with probable pancreatiti s. No pseudocyst evident. No obvious pancreatic mass evident on this noninfused study. 2. Renal cysts. However, in addition there is a 22 x 19 millimeter nodule in the inferior aspect of the right kidney which is difficult to assess on this noninfused study but might be a solid renal mas s. Recommend contrast infused CT scan or MRI. 3. Mild wall thickening and stranding in the lower rectum suggesting an element of proctitis. RADIATION DOSE DELIVERED: 1,333.93mGy.cm Total DLP 1,333.93mGy.cm Total DLP DATA REPOSITORY: All CT scans at this facility are submitted to the National Radiology Data Registry (NRDR) Dose Index Registry (DIR) with the [employer] (ACR). RADIATION OPTIMIZATION: All CT scans at this facility use at least one of these dose optimization te chniques: automated exposure control; mA and/or kV adjustment per patient size (includes targeted exa ms where dose is matched to clinical indication); or iterative reconstruction.
[2020-02-14] MEDS: Ondansetron 4 MG/2 ML VIAL IVP (18:06)
[2020-02-14 18:11] LABS: BE (Venous) 3 mmol/L (-2-3); HCO3 (Venous) 28 mmol/L (23-28); O2 Sat (Venous) 88 %; TCO2 (Venous) 25 mmol/L (24-29); pCO2 (Venous) 44 mmHg (41-51); pH (Venous) 7.41 (7.31-7.41); pO2 (Venous) 56 mmHg
[2020-02-14 18:17] LABS: Abs Immature Grans 0.02 10^3/uL (0.0-0.06); Absolute Basophil Count 0.05 10^3/uL (0.0-0.2); Absolute Eosinophil Count 0.06 10^3/uL (0.0-0.7); Absolute Monocyte Count 0.37 10^3/uL (0.1-0.8); Absolute Neutrophil Count 3.63 10^3/uL (1.2-6.7); Basophils % 0.9; HCT 39.6 % (40.0-50.0); HGB 13.3 g/dL (13.5-17.5); Immature Grans % 0.3; Lymphocytes % 29.2; MCHC 33.6 % (32.0-36.0); MCV 86.5 fL (80-95); MPV 9.8 fL (8.0-11.0); Monocytes % 6.3; Neutrophils % 62.3; Nucleated RBC 0 %; Platelet Count 196 10^3/uL (130-400); RBC 4.58 10^6/uL (4.36-5.78); RDW 14.9 % (11.8-14.1); RDW-SD 47.1 fL; WBC 5.83 10^3/uL (4.4-10.8)
[2020-02-14 18:27] LABS: INR 1.1 (0.9-1.1); PTT Activated 25.2 sec (21.0-27.5)
[2020-02-14 18:32] LABS: ALT 27 U/L (16-63); AST 24 U/L (15-37); Albumin 2.8 g/dL (3.4-5.0); Alkaline Phosphatase 98 U/L (46-116); Anion Gap 8.8 mmol/L (3-11); BUN 10 mg/dL (7-18); Bilirubin, Total 1.8 mg/dL (0.2-1.0); CO2 27.2 mmol/L (21.0-32.0); CREATININE 1.18 mg/dL (0.70-1.30); Calcium 8.6 mg/dL (8.5-10.1); Chloride 102 mmol/L (98-107); Glucose 327 mg/dL (74-106); Lipase 61 U/L (73-393); Potassium 3.1 mmol/L (3.5-5.1); Sodium 138 mmol/L (136-145); Total Protein 6.9 g/dL (6.4-8.2); Troponin I < 0.05 ng/mL (<0.06)
[2020-02-14] MEDS: Prochlorperazine 10 MG/2 ML VIAL IVP (18:34)
[2020-02-14] MEDS: Normal Saline 50 ML (18:35)
--- NOTE | 2020-02-14 18:54 | DI.VRAD_ITS ---
PROCEDURE INFORMATION: Exam: CT Head Without Contrast Exam date and time: 02/14/2020 18:04 Age: 69 years old Clinical indication: Pain; Headache TECHNIQUE: Imaging protocol: Computed tomography of the head without contrast. COMPARISON: CT HEAD WO 02/14/2020 02:42 FINDINGS: Brain: Moderate cerebral atrophy. Small foci of right temporal and occipital encephalomalacia again seen. No significant white matter disease for the patient's age. No edema or hemorrhage. Small chronic infarct right lentiform nuclei. Similar to prior. Cerebral ventricles: Ex vacuo dilation of the ventricular system. Bones/joints: No acute fracture. Paranasal sinuses: No acute sinusitis. Mastoid air cells: No mastoid effusion. Soft tissues: No suspicious lesions. IMPRESSION: 1. No acute intracranial findings. 2. Right supratentorial infarcts, chronic and stable. Dictated and Authenticated by: Maureen Javed MD. Ordering:ZENON Juan MD
[2020-02-14] MEDS: MAGNESIUM SULFATE 2 GM/50 ML BAG IVPB (18:56)
[2020-02-14] MEDS: POTASSIUM CHLORIDE 10 MEQ/100 ML BAG 100 MEQ IVPB (18:57)
--- NOTE | 2020-02-14 19:18 | HPE_ITS ---
Date of service: 02/14/20 Time of Service: 19:19 Assessment and Plan Assessment and plan (1) Intractable nausea and vomiting: Start date: 02/14/20 Status: Acute Assessment and plan: This is a 69-year-old gentleman who fell backwards hitting patient has a history of unsteady gait the back of his head today and had mild concussion symptoms with intractable nausea and vomiting in the ED. He had no diarrhea but did have a question of abdominal discomfort and CT scan of the abdomen showed chronic findings with no specific etiology for his symptoms of nausea and vomiting. On exam he has no abdominal pain. He will be kept on clear fluid diet and treat his nausea with PT to evaluate in the morning for safe ambulation at home. (2) Concussion: Start date: 02/14/20 Status: Acute Assessment and plan: Patient is having no headache and we will treat his nausea with patient. Patient had CT scans with no evidence of bleeding. His aspirin and Eliquis will be held overnight. Qualifiers: Encounter type: subsequent encounter Loss of consciousness presence/duration: with LOC of unspecified duration Qualified Code(s): S06.0X9D - Concussion with loss of consciousness of unspecified duration, subsequent encounter (3) Ambulatory dysfunction: Start date: 02/14/20 Status: Chronic Assessment and plan: Physical therapy evaluation in the morning for safe ambulation at home. (4) Type 2 diabetes mellitus with complication, with long-term current use of insulin: Status: Chronic Assessment and plan: While in the hospital patient will be covered with short acting insulin for mealtime and nighttime coverage only holding his usual outpatient medications. Heart healthy diabetic diet with clear fluids for now. History of Present Illness History of Present Illness Chief Complaint: Head injury with concussion and intractable nausea Narrative: This is a 69-year-old male patient with multiple medical problems including poorly controlled diabetes and unsteady gait who fell striking his head sustaining a concussion and being seen earlier in the ED and sent home but returned with intractable vomiting being admitted for observation. At the time I saw the patient was not having headache and having no further nausea on clear fluids with antiemetics. He has no new neurological complaints and his abdominal symptoms had also resolved. Did have abnormal imaging with nothing acute reviewed his history which is extensive including poorly controlled diabetes and previous CVAs with unsteady gait and frequent falls. He is a DNR/DNI. Review of Systems Narrative: 13 point review of systems otherwise unrevealing or stable. [facility] Medical History Anxiety with depression Aortic valve replaced Back pain CAD (coronary artery disease) COPD (chronic obstructive pulmonary disease) CVA (cerebral vascular accident) Diabetic neuropathy DM (diabetes mellitus) GERD (gastroesophageal reflux disease) H/O: HTN (hypertension) Hematuria HFrEF (heart failure with reduced ejection fraction) History of bloody stools HTN (hypertension) Hx of fall Hyperlipidemia Hypothyroidism Hypothyroidism (acquired) Insomnia Memory impairment Obesity IVETTE (obstructive sleep apnea) IVETTE on CPAP Pacemaker Paroxysmal atrial fibrillation Passive suicidal ideations Perforated tympanic membrane Polypharmacy Proteinuria Rash, skin Renal insufficiency Sick sinus syndrome Sinus node dysfunction Tinea cruris Surgical History Coronary Artery Bypass Gaft (CABG) Coronary Stent CABGx4 H/O carotid endarterectomy Pacemaker Replacement of aortic valve Family History Other Cancer Heart disease Social History Smoking/Tobacco Use Status: Never Smoking risk assessment performed?: Yes Alcohol Intake: former Drug use: Never Substance use type: does not use Details: Pt reports no alcohol since his heart attack 1995 Household members: none Housing: other Details: [facility] Number of Children: 2 current occupation: Lives at [facility]. Disabled since . Seatbelt use: always Do you feel safe at home: Yes Do you feel safe in your relationship?: Yes Additional Social history: lives alone, area on aging comes in to assiste pt. Reports safety issue regarding leg giving out. Meds Home Medications and Allergies Home Medications Medication Instructions Recorded Confirmed Type atorvastatin [Lipitor] 80 mg PO HS 01/05/14 02/14/20 History ezetimibe [Zetia] 10 mg PO QAM 01/05/14 02/14/20 History isosorbide mononitrate 120 mg PO QAM 01/05/14 02/14/20 History multivitamin [Daily Multi-Vitamin] 1 tab PO QAM 01/05/14 02/14/20 History ropinirole 2 mg PO HS 01/05/14 02/14/20 History ProAir RespiClick 90 mcg INHALATION Q4H PRN PRN 05/01/18 12/05/20 History mirtazapine 15 mg tablet 15 mg PO DAILY 07/23/18 02/14/20 History gabapentin 400 mg PO HS 10/04/18 02/14/20 History Slow-Mag 71.5 mg PO DAILY 10/18/18 02/14/20 History ketorolac 0.4 % eye drops 1 drp OP QID 04/01/19 02/14/20 History nebulizers #1 each 04/01/19 12/29/19 History oxygen-air delivery systems #1 04/01/19 12/29/19 History fluoxetine 20 mg PO DAILY 05/29/19 02/14/20 History nitroglycerin [Nitrostat] 0.4 mg SUBLINGUAL PRN PRN 05/29/19 02/14/20 History polyethylene glycol 3350 [Miralax] 17 g PO DAILY 05/29/19 02/14/20 History tamsulosin 0.4 mg PO DAILY 07/18/19 02/14/20 History budesonide-formoterol [Symbicort] 2 puff INHALATION BID 09/02/19 02/14/20 History fluticasone propionate [Flonase 2 spray INTRANASAL DAILY 09/02/19 02/14/20 History Allergy Relief] omeprazole 40 mg PO DAILY 09/03/19 02/14/20 History aspirin 81 mg PO DAILY #0 tab 09/09/19 02/14/20 Rx ferrous sulfate 325 mg PO BID #0 tab 09/09/19 02/14/20 Rx Eliquis 5 mg PO BID #60 tab 11/11/19 02/14/20 Rx metoprolol succinate 150 mg PO DAILY #45 tab 11/11/19 02/14/20 Rx furosemide [Lasix] 20 mg PO QAM #4 tab 12/08/19 02/14/20 Rx Levemir FlexTouch U-100 Insuln 28 unit SC DAILY 01/31/20 02/14/20 History Trulicity 1.5 mg SUBCUT DIRECTED 01/31/20 02/14/20 History cholecalciferol (vitamin D3) 1,000 unit PO DAILY 01/31/20 02/14/20 History clotrimazole 1 applic TOPICAL DIRECTED PRN 01/31/20 02/14/20 History levothyroxine 150 mcg PO DAILY 01/31/20 02/14/20 History lisinopril 2.5 mg PO DAILY 01/31/20 02/14/20 History metformin 500 mg PO DAILY 01/31/20 02/14/20 History Allergies Allergy/AdvReac Type Severity Reaction Status Date / Time No Known Allergies Allergy Verified 02/14/20 18:13 Exam Narrative Exam Narrative: General: Patient appears older than stated age, obese, slow and slightly dysarthric speech which is his baseline from previous exams when I saw the patient in [facility] years ago. He is alert and oriented to person and place and possibly time. He is in no acute distress. HEENT: Normocephalic with bald head, coarsened facial features and asymmetry when talking, eyes with pupils equal and reactive to light symmetrically, extraocular movement intact and sclera anicteric. Oropharynx with moist mucosa. External ears and nose normal. Neck: Supple without JVD. Lungs: Clear to auscultation and percussion with fair aeration diffusely. Back: Stooped posture with no CVA tenderness. Heart: Regular rate and rhythm no appreciable murmurs or gallops. Abdomen: Obese contour and soft, nontender to palpation with no palpable hepatosplenomegaly. Bowel sounds positive in all quadrants. Genitalia/rectal: Exam deferred. Extremities: Without pitting edema, clubbing or cyanosis. Neuro: Cranial nerves II to XII grossly intact, slight asymmetry in facial movement when talking. No focalizing motor deficits the patient appears generally weak. Psych: Flattened affect with slow monotonous tone to voice, good eye contact. Mood appears normal to slightly depressed and no abnormal thought processes. Remote and recent memory grossly intact. Results Imaging Imaging Studies: Exam: CT Head Without Contrast Exam date and time: 02/14/2020 18:04 Age: 69 years old Clinical indication: Pain; Headache TECHNIQUE: Imaging protocol: Computed tomography of the head without contrast. COMPARISON: CT HEAD WO 02/14/2020 02:42 FINDINGS: Brain: Moderate cerebral atrophy. Small foci of right temporal and occipital encephalomalacia again seen. No significant white matter disease for the patient's age. No edema or hemorrhage. Small chronic infarct right lentiform nuclei. Similar to prior. Cerebral ventricles: Ex vacuo dilation of the ventricular system. Bones/joints: No acute fracture. Paranasal sinuses: No acute sinusitis. Mastoid air cells: No mastoid effusion. Soft tissues: No suspicious lesions. IMPRESSION: 1. No acute intracranial findings. 2. Right supratentorial infarcts, chronic and stable. Dictated and Authenticated by: Maureen Javed MD Exam: CT Abdomen And Pelvis Without Contrast Exam date and time: 02/14/2020 6:35 PM Age: 69 years old Clinical indication: Abdominal pain; Flank; Other: Unknown TECHNIQUE: Imaging protocol: Computed tomography of the abdomen and pelvis without contrast. COMPARISON: CT ABDOMEN PELVIS W 12/28/2018 12:56 AM FINDINGS: Heart: The heart is mildly enlarged. A 2 lead cardiac pacemaker is seen with leads in the right atrium and right ventricle. No pericardial effusion. Mediastinal space: A small hiatal hernia is seen. The lower esophagus is slightly patulous. Liver: The liver is upper limits of normal in size and has a slightly lobulated appearance, unchanged. Gallbladder and bile ducts: Normal. No calcified stones. No ductal dilation. Pancreas: Mild stranding is seen along the tip of the pancreatic tail extending into the left paracolic gutter. This is new from the prior study. This is best demonstrated on axial images 37-43, series 2. No pancreatic ductal dilatation. No pseudocyst. Spleen: The spleen is normal appearance. Adrenal glands: The bilateral adrenal glands are normal appearance. Kidneys and ureters: The no renal or intraureteral calculi. No hydronephrosis. Bilateral stable renal cysts. Intermediate density lesion is seen within the inferior pole of the right kidney, which borders are difficult to measure due to lack of intravenous contrast, with Hounsfield units measuring up to 27 on image 417, series 3. This may have slightly increased in size from the prior study, currently measuring 3.4 cm in craniocaudal length, previously 2.7 cm. This is best seen on coronal image 60, series 4. Stomach and bowel: Mild wall thickening within the gastric folds. The small bowel is normal appearance. Mild wall thickening within the rectum. A moderate amount of stool seen throughout the colon without obstruction. Appendix: The appendix is normal appearance. Intraperitoneal space: Unremarkable. No free air. No significant fluid collection. Vasculature: Unremarkable. No abdominal aortic aneurysm. Lymph nodes: Unremarkable. No enlarged lymph nodes. Urinary bladder: Mild wall thickening is seen within the urinary bladder. Reproductive: The prostate gland is upper limits of normal in size to mildly enlarged. Bones/joints: Unremarkable. No acute fracture. Soft tissues: A small fat containing right-sided inguinal hernia is seen. IMPRESSION: 1. Mild stranding surrounding the tail the pancreas which may represent pancreatitis. Correlation with an amylase and lipase is suggested. No pseudocyst. 2. Bilateral renal cysts. A possible enlarging intermediate density lesion is seen within the inferior pole of the right kidney. This warrants further evaluation with a renal mass protocol CT or MRI study. 3. Small hiatal hernia. Probable mild gastritis. 4. Mild wall thickening within the lower rectum, suggesting mild proctitis. 5. Stable mild circumferential wall thickening within the urinary bladder, suggesting chronic cystitis or possibly chronic bladder outlet obstruction. 6. Small right-sided inguinal hernia. Dictated and Authenticated by: Yasmin Mckeon MD. Labs Result diagrams: 02/14/20 18:00 02/14/20 18:00 Labs: Laboratory Results - last 24 hr 02/14/20 02/14/20 02/14/20 18:00 18:00 18:00 WBC 5.83 RBC 4.58 Hgb 13.3 L Hct 39.6 L MCV 86.5 MCH 29.0 MCHC 33.6 RDW 14.9 H Plt Count 196 MPV 9.8 Immature Gran % 0.3 Neutrophils % 62.3 Lymphocytes % 29.2 Monocytes % 6.3 Eosinophils % 1.0 Basophils % 0.9 Nucleated RBC % 0 Absolute Neutrophils 3.63 Absolute Lymphocytes 1.70 Absolute Monocytes 0.37 Absolute Eosinophils 0.06 Absolute Basophils 0.05 PT 11.0 INR 1.1 APTT 25.2 VBG pH VBG pCO2 VBG pO2 VBG HCO3 VBG Total CO2 VBG O2 Saturation VBG Base Excess Sodium 138 Potassium 3.1 L Chloride 102 Carbon Dioxide 27.2 Anion Gap 8.8 BUN 10 Creatinine 1.18 Estimated GFR/1.73 m2 >= 60.00 Glucose 327 H Calcium 8.6 Magnesium 1.0 L Total Bilirubin 1.8 H Conjugated Bilirubin 0.40 H AST 24 ALT 27 Alkaline Phosphatase 98 Troponin I < 0.05 Total Protein 6.9 Albumin 2.8 L Lipase 61 02/14/20 18:00 WBC RBC Hgb Hct MCV MCH MCHC RDW Plt Count MPV Immature Gran % Neutrophils % Lymphocytes % Monocytes % Eosinophils % Basophils % Nucleated RBC % Absolute Neutrophils Absolute Lymphocytes Absolute Monocytes Absolute Eosinophils Absolute Basophils PT INR APTT VBG pH 7.41 VBG pCO2 44 VBG pO2 56 VBG HCO3 28 VBG Total CO2 25 VBG O2 Saturation 88 VBG Base Excess 3 Sodium Potassium Chloride Carbon Dioxide Anion Gap BUN Creatinine Estimated GFR/1.73 m2 Glucose Calcium Magnesium Total Bilirubin Conjugated Bilirubin AST ALT Alkaline Phosphatase Troponin I Total Protein Albumin Lipase Last Vital Signs Temp 36 C L 02/14/20 17:49 Pulse 80 02/14/20 19:02 Resp 18 02/14/20 17:49 BP 180/90 H 02/14/20 19:02 Pulse Ox 97 02/14/20 19:02 COVID-19 Screening Have you, or household traveled for leisure in last 14 days?: No Had IN PERSON contact w/suspected or confirmed C-19 person: No
--- NOTE | 2020-02-14 19:18 | NUR.NOTE ---
Nursing Note: Patient assisted to recliner for comfort.
--- NOTE | 2020-02-14 19:26 | DI.VRAD_ITS ---
PROCEDURE INFORMATION: Exam: CT Abdomen And Pelvis Without Contrast Exam date and time: 02/14/2020 6:35 PM Age: 69 years old Clinical indication: Abdominal pain; Flank; Other: Unknown TECHNIQUE: Imaging protocol: Computed tomography of the abdomen and pelvis without contrast. COMPARISON: CT ABDOMEN PELVIS W 12/28/2018 12:56 AM FINDINGS: Heart: The heart is mildly enlarged. A 2 lead cardiac pacemaker is seen with leads in the right atrium and right ventricle. No pericardial effusion. Mediastinal space: A small hiatal hernia is seen. The lower esophagus is slightly patulous. Liver: The liver is upper limits of normal in size and has a slightly lobulated appearance, unchanged. Gallbladder and bile ducts: Normal. No calcified stones. No ductal dilation. Pancreas: Mild stranding is seen along the tip of the pancreatic tail extending into the left paracolic gutter. This is new from the prior study. This is best demonstrated on axial images 37-43, series 2. No pancreatic ductal dilatation. No pseudocyst. Spleen: The spleen is normal appearance. Adrenal glands: The bilateral adrenal glands are normal appearance. Kidneys and ureters: The no renal or intraureteral calculi. No hydronephrosis. Bilateral stable renal cysts. Intermediate density lesion is seen within the inferior pole of the right kidney, which borders are difficult to measure due to lack of intravenous contrast, with Hounsfield units measuring up to 27 on image 417, series 3. This may have slightly increased in size from the prior study, currently measuring 3.4 cm in craniocaudal length, previously 2.7 cm. This is best seen on coronal image 60, series 4. Stomach and bowel: Mild wall thickening within the gastric folds. The small bowel is normal appearance. Mild wall thickening within the rectum. A moderate amount of stool seen throughout the colon without obstruction. Appendix: The appendix is normal appearance. Intraperitoneal space: Unremarkable. No free air. No significant fluid collection. Vasculature: Unremarkable. No abdominal aortic aneurysm. Lymph nodes: Unremarkable. No enlarged lymph nodes. Urinary bladder: Mild wall thickening is seen within the urinary bladder. Reproductive: The prostate gland is upper limits of normal in size to mildly enlarged. Bones/joints: Unremarkable. No acute fracture. Soft tissues: A small fat containing right-sided inguinal hernia is seen. IMPRESSION: 1. Mild stranding surrounding the tail the pancreas which may represent pancreatitis. Correlation with an amylase and lipase is suggested. No pseudocyst. 2. Bilateral renal cysts. A possible enlarging intermediate density lesion is seen within the inferior pole of the right kidney. This warrants further evaluation with a renal mass protocol CT or MRI study. 3. Small hiatal hernia. Probable mild gastritis. 4. Mild wall thickening within the lower rectum, suggesting mild proctitis. 5. Stable mild circumferential wall thickening within the urinary bladder, suggesting chronic cystitis or possibly chronic bladder outlet obstruction. 6. Small right-sided inguinal hernia. Dictated and Authenticated by: Yasmin Mckeon MD. Ordering:ZENON Juan MD
[2020-02-14 19:55] LABS: Bilirubin Negative (Negative); Blood Moderate (Negative); Clarity Clear (Clear); Glucose 500 mg/dL (Negative); Ketones Trace mg/dL (Negative); Leukocyte Esterase Negative (Negative); Nitrite Negative (Negative); Specific Gravity 1.025 (1.005-1.025); pH 6.5 (5-8)
[2020-02-14 20:04] LABS: Casts Negative LPF (Negative); Epithelial Cells Negative HPF (Negative); Mucus Negative (Negative)
[2020-02-14 20:32] LABS: Bacteria Many HPF (Negative); C & S Indicated? Yes; Crystals Negative HPF (Negative)
[2020-02-14] MEDS: Ferrous Sulfate 325 MG TAB PO (21:17)
[2020-02-14] MEDS: Gabapentin 400 MG CAP PO (21:17)
[2020-02-14] MEDS: Mirtazapine 15 MG TAB PO (21:17)
[2020-02-14] MEDS: rOPINIRole 0.5 MG TAB 2 MG PO (21:17)
[2020-02-14 21:56] LABS: Troponin I < 0.05 ng/mL (<0.06)
[2020-02-15] VITALS (12 sets, daily range): BP systolic 103–154; BP diastolic 64–85; PULSE 60–83; RESP 17–20; TEMP 36–36.9; O2SAT 95–98
[2020-02-15] MEDS: Pantoprazole 40 MG VIAL IVP ×2 (00:14→08:16)
[2020-02-15] MEDS: Normal Saline Flush 10 ML SYR IVP ×4 (00:14→18:17)
[2020-02-15] MEDS: Levothyroxine 75 MCG TAB 150 MCG PO (06:53)
[2020-02-15 07:07] LABS: ALT 19 U/L (16-63); AST 21 U/L (15-37); Albumin 2.5 g/dL (3.4-5.0); Alkaline Phosphatase 90 U/L (46-116); Anion Gap 7.3 mmol/L (3-11); BUN 11 mg/dL (7-18); Bilirubin, Total 1.7 mg/dL (0.2-1.0); CO2 28.7 mmol/L (21.0-32.0); CREATININE 1.13 mg/dL (0.70-1.30); Calcium 8.6 mg/dL (8.5-10.1); Chloride 102 mmol/L (98-107); Glucose 251 mg/dL (74-106); Magnesium 1.5 mg/dL (1.8-2.4); Sodium 138 mmol/L (136-145); Total Protein 6.3 g/dL (6.4-8.2)
[2020-02-15 07:10] LABS: Potassium 2.8 mmol/L (3.5-5.1)
[2020-02-15] MEDS: Budesonide/Formoterol 160/4.5 6 GM 60 PUFF INH IH ×2 (07:58→19:36)
[2020-02-15] MEDS: Metoprolol CR 50 MG TABCR 150 MG PO (08:16)
[2020-02-15] MEDS: Potassium Chloride Liquid 20 MEQ PKT 40 MEQ PO (08:16)
[2020-02-15] MEDS: FLUoxetine 20 MG CAP PO (08:17)
[2020-02-15] MEDS: Tamsulosin 0.4 MG CAPCR PO (08:17)
[2020-02-15] MEDS: Isosorbide Mononitrate 60 MG TABCR 120 MG PO (08:17)
[2020-02-15] MEDS: Ezetimibe 10 MG TAB PO (08:17)
[2020-02-15] MEDS: Lisinopril 5 MG TAB 2.5 MG PO (08:17)
[2020-02-15] MEDS: Ferrous Sulfate 325 MG TAB PO ×2 (08:17→19:35)
[2020-02-15] MEDS: Furosemide 20 MG TAB PO (08:17)
[2020-02-15] MEDS: Insulin Aspart 300 UNITS/3 ML PEN SC ×3 (08:18→21:44)
[2020-02-15] MEDS: POTASSIUM CHLORIDE 20 MEQ/100 ML BAG 50 MEQ IVPB ×2 (08:18→10:15)
[2020-02-15] MEDS: MAGNESIUM SULFATE 4 GM/100 ML BAG IVPB (08:18)
[2020-02-15] MEDS: Magnesium Chloride 64 MG TABCR 128 MG PO ×2 (08:44→19:35)
--- NOTE | 2020-02-15 10:33 | W.PM.PROGNOT ---
Date of Service Date of service: 02/15/20 Time of Service: 10:33 Assessment and Plan Assessment and plan (1) Concussion: Status: Acute Assessment and plan: Still experiencing symptoms of post-concussive syndrome. I will continue to hold his anticoagulation for the next 24 hours. We really need to ensure that the patient has his electric wheelchair on discharge - otherwise, reinstitution of anticoagulation may not be safe. Monitor neurochecks. Qualifiers: Encounter type: subsequent encounter Loss of consciousness presence/duration: with LOC of unspecified duration Qualified Code(s): S06.0X9D - Concussion with loss of consciousness of unspecified duration, subsequent encounter (2) Intractable nausea and vomiting: Status: Acute Assessment and plan: Likely due to post-concussive syndrome. The patient does not have symptoms of pancreatitis, though pancreatitis was suggested on CT. He possibly has mild gastritis, for which he is ow on a PPI. Continue antiemetics. (3) Traumatic hematoma of scalp: Status: Acute Assessment and plan: Hold anticoagulation. Ice. (4) Paroxysmal atrial fibrillation: Status: Acute Assessment and plan: The patient does not describe palpitations or dizziness prior to his fall, so I do believe Afib is not to blame, and that this was a mechanical fall. He is normally on eliquis for anticoagulation. Presently, he is in NSR. Due to the h/o CVA in the past, anticoagulation is ideally something that Sher would be resumed on. However, this is unsafe to do until he gets his wheelchair. Care management will look into this. Continue monitoring on tele. Hold anticoagulation for now. (5) Type 2 diabetes mellitus with complication, with long-term current use of insulin: Status: Chronic Assessment and plan: Hyperglycemic this am. Will start 10 units of levemir in am and continue corrective insulin. We will up-titrate insulin as patient's PO intake improves (6) H/O: CVA (cerebrovascular accident): Status: Chronic Assessment and plan: with chronic L-sided facial droop, L-sided hemiparesis, dysphagia, dysarthria, ambulatory dysfunction. As below (7) Ambulatory dysfunction: Status: Chronic Assessment and plan: Due to residual L hemiparesis due to h/o CVA. PT consulted. Care management is looking into wheelchair. Unsafe to remain on anticoagulation if this cannot be arranged. (8) IVETTE (obstructive sleep apnea): Status: Chronic Assessment and plan: Continue CPAP at home settings, assuming the patient is no longer nauseated at the end of the day. (9) Hypomagnesemia: Status: Acute Assessment and plan: Replete (10) Hypokalemia: Status: Acute Assessment and plan: Replete (11) DVT prophylaxis: Status: Acute Assessment and plan: TEDS/SCDS Holding chemical anticoagulation/DVT ppx due to concussion. (12) Discharge planning issues: Status: Acute Assessment and plan: DNR/DNI Admit to inpatient status. Ideally, would have his electric wheelchair on discharge. Subjective Subjective Interval history since last seen: I was asked to see the patient as he was reported to be having a left facial droop. Reviewing my own records from prior admission, L facial droop is old. The patient also states that his L facial droop is old. He complains of a posterior headache, where he has a hematoma. C/o dizziness while sitting. Denies chest pain, shortness of breath, abdominal pain, diarrhea. Endorses n. No vomiting today so far. States that he still has not received his electric wheelchair. Exam Narrative Exam Narrative: General: Very pleasant middle-aged male with his chronic L-facial droop, A&Ox3, good history provider HEENT: EOMI, L facial droop, dry MM Heart: RRR with S3 gallop Lungs: coarse breath sounds at B bases Abdomen: soft, nontender, nondistended Extremities: +1 edema BLEs, no c/c Objective Last Vital Signs Temp 36.9 C 02/15/20 07:38 Pulse 70 02/15/20 07:38 Resp 18 02/15/20 07:38 BP 154/80 H 02/15/20 07:38 Pulse Ox 98 02/15/20 07:38 Laboratory Results - last 24 hr 02/14/20 02/14/20 02/14/20 18:00 18:00 18:00 WBC 5.83 RBC 4.58 Hgb 13.3 L Hct 39.6 L MCV 86.5 MCH 29.0 MCHC 33.6 RDW 14.9 H Plt Count 196 MPV 9.8 Immature Gran % 0.3 Neutrophils % 62.3 Lymphocytes % 29.2 Monocytes % 6.3 Eosinophils % 1.0 Basophils % 0.9 Nucleated RBC % 0 Absolute Neutrophils 3.63 Absolute Lymphocytes 1.70 Absolute Monocytes 0.37 Absolute Eosinophils 0.06 Absolute Basophils 0.05 PT 11.0 INR 1.1 APTT 25.2 VBG pH VBG pCO2 VBG pO2 VBG HCO3 VBG Total CO2 VBG O2 Saturation VBG Base Excess Sodium 138 Potassium 3.1 L Chloride 102 Carbon Dioxide 27.2 Anion Gap 8.8 BUN 10 Creatinine 1.18 Estimated GFR/1.73 m2 >= 60.00 Glucose 327 H Calcium 8.6 Magnesium 1.0 L Total Bilirubin 1.8 H Conjugated Bilirubin 0.40 H AST 24 ALT 27 Alkaline Phosphatase 98 Troponin I < 0.05 Total Protein 6.9 Albumin 2.8 L Lipase 61 TSH Free T4 Urine Color Urine Clarity Urine pH Ur Specific [place] Urine Protein Urine Ketones Urine Blood Urine Nitrite Urine Bilirubin Urine Urobilinogen Ur Leukocyte Esterase Urine RBC Urine WBC Ur Epithelial Cells Urine Crystals Urine Bacteria Urine Casts Urine Mucus Ur Culture Indicated? Urine Glucose 02/14/20 02/14/20 02/14/20 18:00 19:39 20:55 WBC RBC Hgb Hct MCV MCH MCHC RDW Plt Count MPV Immature Gran % Neutrophils % Lymphocytes % Monocytes % Eosinophils % Basophils % Nucleated RBC % Absolute Neutrophils Absolute Lymphocytes Absolute Monocytes Absolute Eosinophils Absolute Basophils PT INR APTT VBG pH 7.41 VBG pCO2 44 VBG pO2 56 VBG HCO3 28 VBG Total CO2 25 VBG O2 Saturation 88 VBG Base Excess 3 Sodium Potassium Chloride Carbon Dioxide Anion Gap BUN Creatinine Estimated GFR/1.73 m2 Glucose Calcium Magnesium Total Bilirubin Conjugated Bilirubin AST ALT Alkaline Phosphatase Troponin I < 0.05 Total Protein Albumin Lipase TSH Free T4 Urine Color Yellow Urine Clarity Clear Urine pH 6.5 Ur Specific [place] 1.025 Urine Protein >=300 H Urine Ketones Trace H Urine Blood Moderate H Urine Nitrite Negative Urine Bilirubin Negative Urine Urobilinogen 1.0 H Ur Leukocyte Esterase Negative Urine RBC 3-5 H Urine WBC 3-5 Ur Epithelial Cells Negative Urine Crystals Negative Urine Bacteria Many Urine Casts Negative Urine Mucus Negative Ur Culture Indicated? Yes Urine Glucose 500 H 02/14/20 02/15/20 20:55 06:24 WBC RBC Hgb Hct MCV MCH MCHC RDW Plt Count MPV Immature Gran % Neutrophils % Lymphocytes % Monocytes % Eosinophils % Basophils % Nucleated RBC % Absolute Neutrophils Absolute Lymphocytes Absolute Monocytes Absolute Eosinophils Absolute Basophils PT INR APTT VBG pH VBG pCO2 VBG pO2 VBG HCO3 VBG Total CO2 VBG O2 Saturation VBG Base Excess Sodium 138 Potassium 2.8 L* Chloride 102 Carbon Dioxide 28.7 Anion Gap 7.3 BUN 11 Creatinine 1.13 Estimated GFR/1.73 m2 >= 60.00 Glucose 251 H Calcium 8.6 Magnesium 1.5 L Total Bilirubin 1.7 H Conjugated Bilirubin AST 21 ALT 19 Alkaline Phosphatase 90 Troponin I Total Protein 6.3 L Albumin 2.5 L Lipase TSH 5.40 H Free T4 1.10 Urine Color Urine Clarity Urine pH Ur Specific [place] Urine Protein Urine Ketones Urine Blood Urine Nitrite Urine Bilirubin Urine Urobilinogen Ur Leukocyte Esterase Urine RBC Urine WBC Ur Epithelial Cells Urine Crystals Urine Bacteria Urine Casts Urine Mucus Ur Culture Indicated? Urine Glucose
--- NOTE | 2020-02-15 11:07 | PHA.REVIEW ---
Pharmacy Admission Review - Admission Clinical Review (Last Reviewed 02/14/20 @ 21:59 by Dameon Gonzalez) Intractable nausea and vomiting (Acute) Traumatic hematoma of scalp (Acute) Nausea & vomiting (Acute) Unsteady (Acute) Concussion (Acute) Paroxysmal atrial fibrillation (Acute) Hypomagnesemia (Acute) Hypokalemia (Acute) Discharge planning issues (Acute) DVT prophylaxis (Acute) No Known Allergies Allergy (Verified 02/14/20 18:13) Height 5 ft 2 in Weight 111.3 kg - Renal Dosing Renal Dosing: BUN 11 mg/dL (7-18) 02/15/20 06:24 Creatinine 1.13 mg/dL (0.70-1.30) 02/15/20 06:24 Medications needing adjustments: Reviewed (crcl ~48ml/min) - Anticoagulation Anticoagulation: Hgb 13.3 g/dL (13.5-17.5) L 02/14/20 18:00 Hct 39.6 % (40.0-50.0) L 02/14/20 18:00 Plt Count 196 10^3/uL (130-400) 02/14/20 18:00 INR 1.1 (0.9-1.1) 02/14/20 18:00 Creatinine 1.13 mg/dL (0.70-1.30) 02/15/20 06:24 DVT Prohphylaxis: N/A (no fall) Therapeutic Anticoagulation: N/A (takes apixaban as outptfor AFIB-on hold due to fall) - Relevant Labs Sodium 138 mmol/L (136-145) 02/15/20 06:24 Potassium 2.8 mmol/L (3.5-5.1) L* 02/15/20 06:24 Chloride 102 mmol/L (98-107) 02/15/20 06:24 Magnesium 1.5 mg/dL (1.8-2.4) L 02/15/20 06:24 Electrolytes, C-Reactive P, ESR: Reviewed (repleting Mag and K) - DM Control DM Control: Glucose 251 mg/dL (74-106) H 02/15/20 06:24 Finger Stick Blood Glucose 227 Finger Stick Blood Glucose 227 Finger Stick Blood Glucose 227 Insulin Dosing: Reviewed (insulin aspart SS and detemir) - Heart Failure/VT Heart Failure/VT: Troponin I < 0.05 ng/mL (<0.06) 02/14/20 20:55 - BP Control BP Control: Blood Pressure 154/80 Blood Pressure 153/85 Blood Pressure 160/96 If elevated: Reviewed - Qtc Review If Elevated: Reviewed (503(pantoprazole(cr), from home med:fluoxetine(cr)mirtazepine(pr) and ondansetron prn(no doses given)) - IV to PO Switch IV Medications: Reviewed - Home Meds Home Med List reviewed: Reviewed (ompeprazole PO as oupt now pantoprazole IV. apixaban not ordered due to fall, metformin, trulicity not ordered using insulin aspart SS.) - Current meds Current Medication Order Review: Reviewed (waiting for oupt CPAP , PT consult ordered)
--- NOTE | 2020-02-15 11:44 | PT.INIE ---
Date of service: 02/15/20 Time of Service: 09:35 PT Notes Visit Reasons: NAUSEA AND VOMITING,HEAD INJURY WITH CONCUSSION Inpatient Physical Therapy Evaluation Date: 02/15/20 Referring Doctor: Dameon Gonzalez PT Orders: PT CONSULT: Exacerbation of Chronic Condition Limited Ability Precautions: Standard Patient Profile/Admitting Diagnosis: Orders received for this 69-year-old male. Patient states that at baseline he is functional activity is not very high due to a history of CVA with left side affect. Patient states that he recently suffered a fall after his legs gave out. Patient states that he hit his head but did not necessarily lose his consciousness. Patient states that ever since then he has had nausea with standing and sitting up and has felt like his head is constantly in a fog. He feels like he does not have a lot of the same strength. PMHX: Medical History Anxiety with depression Aortic valve replaced Back pain CAD (coronary artery disease) COPD (chronic obstructive pulmonary disease) CVA (cerebral vascular accident) Diabetic neuropathy DM (diabetes mellitus) GERD (gastroesophageal reflux disease) H/O: HTN (hypertension) Hematuria HFrEF (heart failure with reduced ejection fraction) History of bloody stools HTN (hypertension) Hx of fall Hyperlipidemia Hypothyroidism Hypothyroidism (acquired) Insomnia Memory impairment Obesity IVETTE (obstructive sleep apnea) IVETTE on CPAP Pacemaker Paroxysmal atrial fibrillation Passive suicidal ideations Perforated tympanic membrane Polypharmacy Proteinuria Rash, skin Renal insufficiency Sick sinus syndrome Sinus node dysfunction Tinea cruris Surgical History Coronary Artery Bypass Gaft (CABG) Coronary Stent CABGx4 H/O carotid endarterectomy Pacemaker Replacement of aortic valve Social History/Home Situation: Patient lives at home alone in the [facility]. He does have a walker that he utilizes at baseline. Patient states that he is on a list and has already been accepted to receive a motorized wheelchair Equipment Owned/DME: Front wheel walker Subjective: Patient states that he just still feels a little off Objective: Patient has a slight asymmetry in his smile that he states is baseline but this has been yet to be confirmed. His speech is somewhat slow but appropriate. Patient has IV placement through the left upper extremity. And he is on telemetry Mental Status: Well oriented alert to person place and time Pain: 0 out of 10 ROM: Right Upper Extremity: Within functional limits Left Upper Extremity: Within functional limit Right Lower Extremity: Within functional limits Left Lower Extremity: Within functional limits Strength: Right Upper Extremity: Globally 5 out of 5 Left Upper Extremity: Globally 4+ to 5 out of 5 Right Lower Extremity: Globally 5 out of 5 Left Lower Extremity: Globally 4+ to 5 out of 5 Bed Mobility/Transfers: Contact-guard assist Supine-sit: Contact-guard assist mainly for limited Sit-stand: Contact-guard assist into front wheel walker Stand-sit: Contact-guard assist Gait: Patient able to ambulate under contact-guard assist with the aid of front wheel walker around his hospital room up to 20 feet including transferring into his recliner Balance: Static Sitting: Normal Dynamic Sitting: Normal Static Standing: Good Dynamic Standing: Fair Special Tests: Mobility Limitations Standardized Measure [facility] AM-PAC 6 clicks Basic Mobility Inpatient Short Form: Raw Score: 18 standardized Score: 43.63 CMS Score: 46.58% Informed Consent/Education: Patient instructed in purpose of PT consult and plan of care. Treatment includes: Seated marching in place Seated long arc quad Seated knee flexion all x10 ASSESSMENT: Patient is a 69-year-old male with a history of CVA Admitted with status post fall and constant nausea Patient presents with the following impairment level findings: Mild assistance needed for transfers, ambulation intolerance, mild balance deficit Pt will benefit from skilled therapy intervention in order to remedy their functional limitations and restore patient to a more appropriate and stable functional level. Impairments are contributing to the following functional limitations: AMPAC score 46.58% Patient is assessed as a moderate complexity initial evaluation 52112 based on the following: History: see above Examination: see above Presentation: Evolving Decision Making: Moderate based on impact at 46.58% Goals: Goals X1 week 1. Supine-Sit supervision 2. Sit-Supine supervision 3. Sit-Stand supervision 4. Stand-Sit supervision 5. Bed-Chair supervision 6. Gait supervision with the assistance of front wheel walker up to 100 feet Plan of Care/Treatment Plan: 1-2x/day, 7 days/week x 1 week. Plan of care has been reviewed with the [employer]TER[employer] SEWER providing the service under Physical Therapy direction. Initiate Physical Therapy intervention for strengthening, bed mobility, transfers, gait, stairs, balance training, use of assistive device. DISCHARGE RECOMMENDATIONS: Back to his living arrangement at [facility] once goals have been completed and medical stability has been ascertained TREATMENT CODE/TIME: Moderate complexity initial evaluation 94154 time of treatment 935, 25 minutes of direct patient care Jenaro Gibbons DPT [facility]
[2020-02-15] MEDS: Docusate Sodium 100 MG CAP PO (12:08)
[2020-02-15] MEDS: Acetaminophen 325 MG TAB 650 MG PO (12:08)
--- NOTE | 2020-02-15 12:15 | RT.EKG_ITS ---
APPROVED REPORT Exam: Resting ECG Patient Location: I HR:68 bpm ECG Measurements Heart Rate 68 AXIS MN 187 P 88 QRSd 153 QRS 257 QT 475 T 104 QTc 505 Conclusion Sinus rhythm...normal P axis, V-rate 60- 99 Multiform ventricular premature complexes...short R-R, variable morphology Inferior infarct, old...Q >35mS, II III aVF
[2020-02-15] MEDS: nitroGLYcerin 0.4 MG TAB SL (12:44)
[2020-02-15] MEDS: Ondansetron 4 MG/2 ML VIAL IVP ×2 (12:44→18:17)
[2020-02-15 13:07] LABS: Anion Gap 6.6 mmol/L (3-11); BUN 11 mg/dL (7-18); CO2 27.4 mmol/L (21.0-32.0); CREATININE 1.29 mg/dL (0.70-1.30); Calcium 8.7 mg/dL (8.5-10.1); Chloride 102 mmol/L (98-107); Estimated GFR 55.56 (mL/min/1.73m2); Glucose 290 mg/dL (74-106); Potassium 3.9 mmol/L (3.5-5.1); Sodium 136 mmol/L (136-145); Troponin I < 0.05 ng/mL (<0.06)
--- NOTE | 2020-02-15 15:36 | INITIAL_ITS ---
- If Service Date Differs Date of service: 02/15/20 Time of Service: 15:36 Care Management Initial Assess REASON FOR HOSPITALIZATION:: Nausea and vomiting, head injury with concussion. PAST MEDICAL HISTORY/PAST SURGICAL HISTORY:: Medical History: Anxiety with depression, Aortic valve replaced, Back pain, CAD (coronary artery disease), COPD (chronic obstructive pulmonary disease), CVA (cerebral vascular accident), Diabetic neuropathy, DM (diabetes mellitus), GERD (gastroesophageal reflux disease), H/O: HTN (hypertension), Hematuria, HFrEF (heart failure with reduced ejection fraction), History of bloody stools, HTN (hypertension), Hx of fall,. Hyperlipidemia, Hypothyroidism (acquired), Insomnia, Memory impairment,. Obesity, IVETTE (obstructive sleep apnea), IVETTE on CPAP, Pacemaker, Paroxysmal atrial fibrillation, Passive suicidal ideations, Perforated tympanic membrane, Polypharmacy, Proteinuria, Rash, skin, Renal insufficiency, Sick sinus syndrome, Sinus node dysfunction, and Tinea cruris. Surgical History: Coronary Artery Bypass Gaft (CABG), Coronary Stent - CABGx4, H/O carotid endarterectomy, Pacemaker, and Replacement of aortic valve. PREVIOUS FUNCTIONAL STATUS/SOCIAL/FAMILY SUPPORTS:: Sher lives alone with his cat in an apartment at the [facility] in [facility]. He has two sons who reside in the [facility], a brother in [place], and a sister who lives locally and is supportive of him. 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 He ambulates with a walker and canes. He had an electric scooter but says the motor is gone and he can't find anyone willing to repair it. Sher reports he was approved for an electric wheelchair through [facility] several months ago but he has yet to get it. Sher no longer drives. CURRENT FUNCTIONAL STATUS:: Sher is laying in bed when comes to meet with him. He is pleasant and talkative, but his speech is slurred due to a stroke and difficult to understand at times. He talks at great length about his fr ustration around trying to obtain an electric wheelchair and feeling as though he is just getting the run around. ADVANCE DIRECTIVES:: On file; his son, Duong Hinkle, is listed as health care agent. Has patient been provided with info about the portal/API?: Yes Did the patient sign up for the portal?: No CODE STATUS:: DNR/DNI INSURANCE COVERAGE / FINANCIAL ISSUES:: [facility] HMO (commercial Medicare replacement) and Medicaid. CURRENT HOME/COMMUNITY SERVICES/EQUIPMENT:: Sher has a walker, canes, and a CPAP machine. He also has an electric scooter but it is in disrepair. He has a bilingual patient support caseworker through [facility], but does not know the bilingual patient support caseworker's name, and is also working with Franklyn Ontiveros from [facility]. He states he also has a Home Health RN who takes care of his medications. PRIMARY CARE PHYSICIAN:: Abdullahi Gilliland MD POTENTIAL DISCHARGE NEEDS:: Follow up appointment with PCP. PATIENT/FAMILY EDUCATION NEEDS:: Discharge instructions, limitations and follow up plan of care, including Ask Me Three and self management. ANTICIPATED BARRIERS TO DISCHARGE:: Unsafe to discharge home without a new electric wheelchair. Sher may require a SNF placement, though he is unwilling to consider this at this time. TRANSPORTATION:: Via wheelchair van with [facility]. PLAN:: Anticipate Sher will be discharged home when medically cleared by provider. He will resume services through [facility], [facility], and , and will follow up with his PCP and discharge plan of care as directed. He will be transported home via [facility] wheelchair van, to be coordinated by CM when ready. CM will continue to support patient and discharge planning needs.
[2020-02-15] MEDS: Atorvastatin 40 MG TAB 80 MG PO (19:35)
[2020-02-15] MEDS: rOPINIRole 1 MG TAB 2 MG PO (21:42)
[2020-02-15] MEDS: Mirtazapine 15 MG TAB PO (21:43)
[2020-02-15] MEDS: Gabapentin 400 MG CAP PO (21:43)
[2020-02-16] VITALS (8 sets, daily range): BP systolic 126–153; BP diastolic 69–88; PULSE 60–78; RESP 17–19; TEMP 35.6–36.5; O2SAT 96–99
[2020-02-16] MEDS: Levothyroxine 75 MCG TAB 150 MCG PO (06:04)
[2020-02-16 06:54] LABS: Abs Immature Grans 0.01 10^3/uL (0.0-0.06); Absolute Basophil Count 0.05 10^3/uL (0.0-0.2); Absolute Eosinophil Count 0.26 10^3/uL (0.0-0.7); Absolute Monocyte Count 0.48 10^3/uL (0.1-0.8); Absolute Neutrophil Count 3.19 10^3/uL (1.2-6.7); Basophils % 0.8; Eosinophils % 4.3; HCT 38.7 % (40.0-50.0); HGB 12.6 g/dL (13.5-17.5); Immature Grans % 0.2; Lymphocytes % 34.5; MCH 28.6 pg (27.0-33.0); MCHC 32.6 % (32.0-36.0); MPV 10.1 fL (8.0-11.0); Monocytes % 7.9; Neutrophils % 52.3; Nucleated RBC 0 %; Platelet Count 211 10^3/uL (130-400); RDW 15.3 % (11.8-14.1); RDW-SD 49.3 fL; WBC 6.09 10^3/uL (4.4-10.8)
[2020-02-16 06:58] LABS: Anion Gap 7.8 mmol/L (3-11); BUN 10 mg/dL (7-18); CO2 29.2 mmol/L (21.0-32.0); CREATININE 1.19 mg/dL (0.70-1.30); Calcium 8.8 mg/dL (8.5-10.1); Chloride 104 mmol/L (98-107); Glucose 186 mg/dL (74-106); Magnesium 2.1 mg/dL (1.8-2.4); Sodium 141 mmol/L (136-145)
[2020-02-16] MEDS: Budesonide/Formoterol 160/4.5 6 GM 60 PUFF INH IH ×2 (07:58→20:02)
[2020-02-16] MEDS: Pantoprazole 40 MG VIAL IVP (08:15)
[2020-02-16] MEDS: Insulin Aspart 300 UNITS/3 ML PEN SC ×4 (08:16→22:14)
[2020-02-16] MEDS: Isosorbide Mononitrate 60 MG TABCR 120 MG PO (08:16)
[2020-02-16] MEDS: Metoprolol CR 50 MG TABCR 150 MG PO (08:16)
[2020-02-16] MEDS: Lisinopril 5 MG TAB 2.5 MG PO (08:16)
[2020-02-16] MEDS: Magnesium Chloride 64 MG TABCR 128 MG PO ×2 (08:16→20:02)
[2020-02-16] MEDS: Normal Saline Flush 10 ML SYR IVP (08:16)
[2020-02-16] MEDS: Ezetimibe 10 MG TAB PO (08:17)
[2020-02-16] MEDS: Furosemide 20 MG TAB PO (08:17)
[2020-02-16] MEDS: FLUoxetine 20 MG CAP PO (08:17)
[2020-02-16] MEDS: Ferrous Sulfate 325 MG TAB PO ×2 (08:17→20:02)
[2020-02-16] MEDS: Tamsulosin 0.4 MG CAPCR PO (08:17)
[2020-02-16 08:34] LABS: COVID-19 RT-PCR UVMMC Result Negative (Negative)
[2020-02-16 08:38] LABS: Troponin I < 0.05 ng/mL (<0.06)
[2020-02-16] MEDS: POTASSIUM CHLORIDE 20 MEQ/100 ML BAG 30 MEQ IVPB (08:38)
[2020-02-16] MEDS: Potassium Chloride 20 MEQ TABCR PO ×3 (10:09→20:02)
[2020-02-16] MEDS: Nystatin POWDER 60 GM JAR TP ×3 (10:10→20:03)
--- NOTE | 2020-02-16 12:22 | PT.INTREAT ---
Date of service: 02/16/20 Time of Service: 11:35 PT Notes Visit Reasons: NAUSEA AND VOMITING,HEAD INJURY WITH CONCUSSION Inpatient Physical Therapy Treatment Note [facility] Date: 02/16/2020 PRECAUTIONS: Fall SUBJECTIVE: Sher reports that he is feeling good today. He is hoping to be able to go home today. He reports that he is waiting on diabetic shoes and an electric wheelchair, both of which the process begin a while ago. OBJECTIVE: PAIN: Patient complained of B knee pain with gait training BED MOBILITY/TRANSFERS Supine-sit: S with HOB at 20 degrees Sit-stand: SBA in a.m.; S in p.m. Stand-sit: SBA in a.m.; S in p.m. GAIT Assistive Device: FWW Weight bearing: Full Assist: CGA?SBA in a.m.; SBA in p.m. Distance: 200' in both a.m. and p.m. Deviation: Several brief standing rests in both a.m. and p.m., slight LOB x2 self recovered in p.m. THEREX: Patient was instructed in a B UE and LE strengthening program, in a seated position, as per flow sheet. He was issued 1# dumbbells and pink foam cubes. ASSESSMENT: Patient tolerated sessions well with some c/o B knee pain with gait training. He was able to tolerate a progression with gait distance with FWW support and SBA. He was also able to tolerate the addition of B UE strengthening program. PLAN: Continue with global strengthening and gait and transfer training TREATMENT CODE/TIME: Session 1: 20 minutes; [id number] Session 2: 25 minutes; [id number], [id number]
--- NOTE | 2020-02-16 12:46 | PGE_ITS ---
Date of Service Date of service: 02/16/20 Time of Service: 12:47 Assessment and Plan Assessment and plan (1) Concussion: Status: Acute Assessment and plan: Post-concussive symptoms are better today Will resume anticoagulation only if we know for a fact that the patient's wheelchair is coming. Holding it for now. Qualifiers: Encounter type: subsequent encounter Loss of consciousness presence/duration: with LOC of unspecified duration Qualified Code(s): S06.0X9D - Concussion with loss of consciousness of unspecified duration, subsequent encounter (2) Intractable nausea and vomiting: Status: Resolved Assessment and plan: Advance diet as tolerated (3) Traumatic hematoma of scalp: Status: Acute Assessment and plan: Hold anticoagulation. Ice. (4) Paroxysmal atrial fibrillation: Status: Chronic Assessment and plan: The patient does not describe palpitations or dizziness prior to his fall, so I do believe Afib is not to blame, and that this was a mechanical fall. He is normally on eliquis for anticoagulation. Due to the h/o CVA in the past, anticoagulation is ideally something that Sher would be resumed on. However, this is unsafe to do until he gets his wheelchair. Care management will look into this. Continue monitoring on tele. Hold anticoagulation for now. (5) Type 2 diabetes mellitus with complication, with long-term current use of insulin: Status: Chronic Assessment and plan: FBG 184 this am. Adjust insulins as the patient is tolerating more PO. (6) H/O: CVA (cerebrovascular accident): Status: Chronic Assessment and plan: with chronic L-sided facial droop, L-sided hemiparesis, dysphagia, dysarthria, ambulatory dysfunction. As below (7) Ambulatory dysfunction: Status: Chronic Assessment and plan: Due to residual L hemiparesis due to h/o CVA. PT. Care management is looking into wheelchair. Unsafe to remain on anticoagulation if this cannot be arranged. (8) IVETTE (obstructive sleep apnea): Status: Chronic Assessment and plan: Continue CPAP at home settings. Tolerated with no problems last night (9) Hypomagnesemia: Status: Resolved Assessment and plan: Repleted. Recheck in am. (10) Hypokalemia: Status: Acute Assessment and plan: Replete (11) DVT prophylaxis: Status: Acute Assessment and plan: TEDS/SCDS Holding chemical anticoagulation/DVT ppx due to concussion. (12) Discharge planning issues: Status: Acute Assessment and plan: DNR/DNI Awaiting status of wheelchair. Ideally, would have his electric wheelchair on discharge. Expect to be medically ready for discharge tomorrow if tolerates advancement of diet. Subjective Subjective Interval history since last seen: Mr Hinkle is feeling a lot better today. No nausea since last night. Denies dizziness, chest pain, shortness of breath, nausea today. Slept with CPAP on. Chest pain yesterday during the day: was relieved with nitroglycerin x1. Exam Narrative Exam Narrative: General: Very pleasant middle-aged male with his chronic L-facial droop, wearing CPAP and asleep initially, easily arousable, A&Ox3, looks better HEENT: EOMI, L facial droop, MMM Heart: RRR with S3 gallop Lungs: CTAB Abdomen: soft, nontender, nondistended Extremities: wearing SCDS, no visible edema Objective Last Vital Signs Temp 35.6 C L 02/16/20 11:20 Pulse 60 02/16/20 11:20 Resp 19 02/16/20 11:20 BP 153/87 H 02/16/20 11:20 Pulse Ox 99 02/16/20 11:20 Laboratory Results - last 24 hr 02/14/20 02/15/20 02/16/20 19:04 12:43 06:10 WBC RBC Hgb Hct MCV MCH MCHC RDW Plt Count MPV Immature Gran % Neutrophils % Lymphocytes % Monocytes % Eosinophils % Basophils % Nucleated RBC % Absolute Neutrophils Absolute Lymphocytes Absolute Monocytes Absolute Eosinophils Absolute Basophils Sodium 136 141 Potassium 3.9 D 3.0 L Chloride 102 104 Carbon Dioxide 27.4 29.2 Anion Gap 6.6 7.8 BUN 11 10 Creatinine 1.29 1.19 Estimated GFR/1.73 m2 55.56 >= 60.00 Glucose 290 H 186 H D Calcium 8.7 8.8 Magnesium 2.1 Troponin I < 0.05 < 0.05 COVID-19 PCR Negative Nasopharyn COVID-19 PCR Not Applicable Ref Test Perform Site [facility] 02/16/20 06:10 WBC 6.09 RBC 4.40 Hgb 12.6 L Hct 38.7 L MCV 88.0 MCH 28.6 MCHC 32.6 RDW 15.3 H Plt Count 211 MPV 10.1 Immature Gran % 0.2 Neutrophils % 52.3 Lymphocytes % 34.5 Monocytes % 7.9 Eosinophils % 4.3 Basophils % 0.8 Nucleated RBC % 0 Absolute Neutrophils 3.19 Absolute Lymphocytes 2.10 Absolute Monocytes 0.48 Absolute Eosinophils 0.26 Absolute Basophils 0.05 Sodium Potassium Chloride Carbon Dioxide Anion Gap BUN Creatinine Estimated GFR/1.73 m2 Glucose Calcium Magnesium Troponin I COVID-19 PCR Nasopharyn COVID-19 PCR Ref Test Perform Site
--- NOTE | 2020-02-16 15:02 | CMPROGNOTE_ITS ---
- If Service Date Differs Date of service: 02/16/20 Time of Service: 15:09 Care Management Progress Note S/O: Sher was sitting up in her chair when CM met with her. He was pleasant and engaged in conversation. He stated that he was told by Dr. Gonzalez that he would likely discharge today. Per report, he is not medically cleared, but may be tomorrow. CM was asked to expedite the motorized wheelchair that has been ordered for him. CM called and spoke to Franklyn Ontiveros [facility], as well as Miryam Patel, from [facility], who both have been working hard attempting to obtain this for him in the community. They stated that paperwork was recently sent on 02/10/20, which they believed to be the last of the requests, in order for the order to be reviewed. CM called [facility] [employer] and spoke to someone who reported that there was nothing on file for Sher. CM called Miryam Medina again, who confirmed that the order was through [employer], and the contact to talk to is Benjamin Horvath. CM called again and left a voicemail for Benjamin. Sher stated that his w/c is a concern for him, but he is ready to return home, once he is medically cleared. CM stated that we will try to obtain a timeline for the chair, but it likely will not be before he discharges home, which he was agreeable to. CM talked to PT, who stated that he was stand by assist for more than 200ft. CM will continue to follow. A: Sher is a 69 year old male admitted to [facility] on 02/16/20 with nausea, vomiting, and head injury. P: Anticipate Sher will be discharged home when medically cleared by provider. He will resume services through [facility], [facility], and , and will follow up with his PCP and discharge plan of care as directed. He will be transported home via [facility] wheelchair van, to be coordinated by CM when ready. CM will continue to support patient and discharge planning needs.
--- NOTE | 2020-02-16 15:26 | CHAPLAIN ---
Sher was sitting in his chair when I visited, and using his hand weights. Sher told me about his stroke and he said he has difficulty forming some words because of it, but I was able to understand him readily. He easily engages in conversation, telling me about his sons in the [place] area, and growing up in the [place] area. He's having difficulty getting a motorized wheelchair but he said Franklyn from [facility] and care managers here are working on helping he obtain one. (Care Management said it will likely be months before Sher gets the wheelchair.) Sher says he speaks with God several times a day and that he can feel the literal warmth of an embrace from God when he speaks to God. I will continue to visit.
--- NOTE | 2020-02-16 17:11 | W.PALLCONSUL ---
Date of service: 02/16/20 Time of Service: 17:11 History of Present Illness Narrative: History at time of admission: History of Present Illness History of Present Illness Chief Complaint: Head injury with concussion and intractable nausea Narrative: This is a 69-year-old male patient with multiple medical problems including poorly controlled diabetes and unsteady gait who fell striking his head sustaining a concussion and being seen earlier in the ED and sent home but returned with intractable vomiting being admitted for observation. At the time I saw the patient was not having headache and having no further nausea on clear fluids with antiemetics. He has no new neurological complaints and his abdominal symptoms had also resolved. Did have abnormal imaging with nothing acute reviewed his history which is extensive including poorly controlled diabetes and previous CVAs with unsteady gait and frequent falls. He is a DNR/DNI. Presently Sher states that he is getting stronger. He has been able to get around with his walker. He is not having nausea and vomiting. He is anxious to go home. Sher had 2 questions for me the first is that he wanted a scooter so that he can get around and go up and down the roads. 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 He knows that there is a crematorium iin [facility] and also the ba of how much it costs per cremation. Unfortunately his children will not transport his body for cremation. He feels that he needs to find somebody or better I need to find somebody for him that will transport his body. He knows about homes but feels that they are way too expensive. He was not aware of the home in [place] that will transport bodies for cremation at a low ba. Whenever I try to talk to Sher about any other aspect of his health he kept coming back to wanting to get his cremation prepaid and wrapped up Sher has many comorbidities including morbid obesity, diabetes, ambulatory dysfunction, hypertension, A. fib, kidney dysfunction, CVA, sick sinus syndrome, COPD, aortic valve replacement, hypothyroidism and IVETTE He states he is doing pretty good with these multiple comorbidities Consults Consult date: 02/16/20 Requesting physician: Risa Fleming Assessment and Plan Assessment and plan (1) Palliative care patient: Status: Acute Assessment and plan: He is awaiting discharge and hopes to go home tomorrow. I explained to him that he should go through his primary care doctor if he wants a motorized scooter. We did complete the COLST form. He is a DNR/DNI. He does not want intubation. He is okay with transport, antibiotics, and IV fluids. He does not want a feeding tube. We spent the majority of the time talking about planning his cremation. It was a little difficult to get words and edgewise as he kept going over what he did know. I told him that there are basically 3 ways to get a cremation. He kept stating that he wanted the cheapest, hopefully self cremation, at [facility] but that he did not have someone who would bring him to the crematorium. I explained to him a number of times that he needs to figure this piece out, but got the impression from him that I should do this. I cannot. If his children will not do this, maybe he can find a friend to do this. With his BMI , it will not be an easy task. I will find out the particulars on the other options and relay them as an addendum. Hopefully Care Management can help with this piece of relaying what I know and helping him with options I do think he would benefit from continued contact with Palliative Care due to his many comorbidities. (2) Physician orders for life-sustaining treatment (POLST) form indicates patient wish for [id number] status: Status: Acute (3) Paroxysmal atrial fibrillation: Status: Chronic (4) Ambulatory dysfunction: Status: Chronic (5) Nausea & vomiting: Status: Acute (6) Facial droop: Status: Acute (7) Diabetic peripheral neuropathy: Status: Acute Review of Systems Narrative: Nausea has resolved. He is at his baseline for shortness of breath. He has no chest pain. He does not have any diarrhea or constipation,, ambulation is always been a problem for him. He states that his diabetes is under adequate control. [facility], [facility] Medical History Anxiety with depression Aortic valve replaced Back pain CAD (coronary artery disease) COPD (chronic obstructive pulmonary disease) CVA (cerebral vascular accident) Diabetic neuropathy DM (diabetes mellitus) GERD (gastroesophageal reflux disease) H/O: HTN (hypertension) Hematuria HFrEF (heart failure with reduced ejection fraction) History of bloody stools HTN (hypertension) Hx of fall Hyperlipidemia Hypothyroidism Hypothyroidism (acquired) Insomnia Memory impairment Obesity IVETTE (obstructive sleep apnea) IVETTE on CPAP Pacemaker Paroxysmal atrial fibrillation Passive suicidal ideations Perforated tympanic membrane Polypharmacy Proteinuria Rash, skin Renal insufficiency Sick sinus syndrome Sinus node dysfunction Tinea cruris Surgical History Coronary Artery Bypass Gaft (CABG) Coronary Stent CABGx4 H/O carotid endarterectomy Pacemaker Replacement of aortic valve Family History Other Cancer Heart disease Social History Smoking/Tobacco Use Status: Never Smoking risk assessment performed?: Yes Alcohol Intake: former Drug use: Never Substance use type: does not use Details: Pt reports no alcohol since his heart attack 1995 Household members: none Housing: other Details: [facility] Number of Children: 2 current occupation: Lives at [facility]. Disabled since . Seatbelt use: always Do you feel safe at home: Yes Do you feel safe in your relationship?: Yes Additional Social history: lives alone, area on [facility] comes in to assiste pt. Reports safety issue regarding leg giving out. Exam Narrative Exam Narrative: Laboratory Tests 02/14/20 02/15/20 02/16/20 20:55 12:43 06:10 Potassium 3.0 L Glucose 290 H TSH 5.40 H Free T4 1.[address] 02/14/20 Exam(s) a CT:CT head wo EXAM: CT HEAD WO CLINICAL HISTORY: fall, worsening n/v and dizziness. TECHNIQUE: Imaging Protocol: Axial computed tomography images with coronal and sagittal reformatted images were created and reviewed COMPARISON: CT CT HEAD WO from 02/14/2020 FINDINGS: There are no skull fractures nor fluid in the visualized paranasal sinuses. There is no evidence of intracranial hemorrhage, mass effect, or shift of midline structures. There are no extra-axial fluid collections. The ventricles are not enlarged or shifted and there is no blood within the ventricular system nor within the basal cisterns. Symmetrical bifrontal atrophy noted. Also evidence of prior infarction in the right occipital lobe, unchanged, with an element of mild ex vacuo dilatation of the ipsilateral atrium of the right lateral ventricle.. There is heavy calcification in the left vertebral artery at the skull base noted. IMPRESSION: No acute intracranial findings on this noninfused CT scan of the brain. Stable appearing post ischemic findings, as described above. HENMT Face and sinus: other (drooping of his left face with slurred speech) Teeth and gingiva: poor dentition Resp Effort & Inspection: normal respiratory effort and able to speak in complete sentences (difficult to interrupt) Auscultation: diminished lung sounds Cardio Heart Sounds: murmur (muffled heart sounds) GI Inspection: obesity Palpation: soft Results Last Vital Signs Temp 97.2 F L 02/16/20 15:50 Pulse 60 02/16/20 15:50 Resp 18 02/16/20 15:50 BP 143/88 H 02/16/20 15:50 Pulse Ox 99 02/16/20 15:50 Labs Result diagrams: 02/16/20 06:10 02/17/20 06:12 Labs: Laboratory Results - last 24 hr 02/14/20 02/16/20 02/16/20 19:04 06:10 06:10 WBC 6.09 RBC 4.40 Hgb 12.6 L Hct 38.7 L MCV 88.0 MCH 28.6 MCHC 32.6 RDW 15.3 H Plt Count 211 MPV 10.1 Immature Gran % 0.2 Neutrophils % 52.3 Lymphocytes % 34.5 Monocytes % 7.9 Eosinophils % 4.3 Basophils % 0.8 Nucleated RBC % 0 Absolute Neutrophils 3.19 Absolute Lymphocytes 2.10 Absolute Monocytes 0.48 Absolute Eosinophils 0.26 Absolute Basophils 0.05 Sodium 141 Potassium 3.0 L Chloride 104 Carbon Dioxide 29.2 Anion Gap 7.8 BUN 10 Creatinine 1.19 Estimated GFR/1.73 m2 >= 60.00 Glucose 186 H D Calcium 8.8 Magnesium 2.1 Troponin I < 0.05 COVID-19 PCR Negative Nasopharyn COVID-19 PCR Not Applicable Ref Test Perform Site [place] [facility]
[2020-02-16] MEDS: Docusate Sodium 100 MG CAP PO (17:41)
[2020-02-16] MEDS: Atorvastatin 40 MG TAB 80 MG PO (20:02)
[2020-02-16] MEDS: Gabapentin 400 MG CAP PO (22:14)
[2020-02-16] MEDS: Mirtazapine 15 MG TAB PO (22:14)
[2020-02-16] MEDS: rOPINIRole 1 MG TAB 2 MG PO (22:14)
[2020-02-17 03:40] VITALS: BP 134/72; PULSE 61; RESP 17; TEMP 36.9; O2SAT 98
[2020-02-17 06:46] LABS: Anion Gap 6.9 mmol/L (3-11); BUN 16 mg/dL (7-18); CO2 28.1 mmol/L (21.0-32.0); CREATININE 1.38 mg/dL (0.70-1.30); Calcium 8.9 mg/dL (8.5-10.1); Chloride 103 mmol/L (98-107); Glucose 173 mg/dL (74-106); Magnesium 1.8 mg/dL (1.8-2.4); Potassium 3.8 mmol/L (3.5-5.1); Sodium 138 mmol/L (136-145)
[2020-02-17 07:40] VITALS: BP 126/68; PULSE 65; RESP 18; TEMP 36.5; O2SAT 99
[2020-02-17] MEDS: Budesonide/Formoterol 160/4.5 6 GM 60 PUFF INH IH (07:43)
[2020-02-17 07:47] VITALS: PULSE 63
--- NOTE | 2020-02-17 08:00 | DI.US_ITS ---
EXAM: US RENAL CLINICAL HISTORY: right renal nodule TECHNIQUE: Ultrasound performed using standard protocol. COMPARISON: US US RENAL from 09/08/[address] RENAL COLIC WO from 02/14/2020 FINDINGS: Renal ultrasound was performed according to the usual protocol. Recent CT showed a right lower pole renal cyst measuring up to about 4 cm in diameter, this is also noted ultrasound a graphically. Ultr asound also shows a midpole renal cyst which appears to extend into cortex from medulla. This measur es up to about 2-3 cm in diameter. Small upper pole simple cyst is also noted. There is question contour abnormality of the inferior pole renal cortex as noted on CT, no definite c yst identified at this site, solid renal mass lesion not excluded. Correlation with renal MRI recommended to exclude a solid renal mass. IMPRESSION: DATA REPOSITORY:
[2020-02-17] MEDS: Normal Saline Flush 10 ML SYR IVP (08:12)
[2020-02-17] MEDS: Metoprolol CR 50 MG TABCR 150 MG PO (08:12)
[2020-02-17] MEDS: Docusate Sodium 100 MG CAP PO (08:12)
[2020-02-17] MEDS: Pantoprazole 40 MG VIAL IVP (08:12)
[2020-02-17] MEDS: Ezetimibe 10 MG TAB PO (08:13)
[2020-02-17] MEDS: Insulin Aspart 300 UNITS/3 ML PEN SC ×2 (08:13→11:52)
[2020-02-17] MEDS: Lisinopril 5 MG TAB 2.5 MG PO (08:13)
[2020-02-17] MEDS: Potassium Chloride 20 MEQ TABCR PO ×2 (08:13→13:42)
[2020-02-17] MEDS: Ferrous Sulfate 325 MG TAB PO (08:13)
[2020-02-17] MEDS: Magnesium Chloride 64 MG TABCR 128 MG PO (08:13)
[2020-02-17] MEDS: Isosorbide Mononitrate 60 MG TABCR 120 MG PO (08:13)
[2020-02-17] MEDS: FLUoxetine 20 MG CAP PO (08:13)
[2020-02-17] MEDS: Tamsulosin 0.4 MG CAPCR PO (08:13)
[2020-02-17] MEDS: Levothyroxine 75 MCG TAB 150 MCG PO (08:13)
[2020-02-17] MEDS: Furosemide 20 MG TAB PO (08:13)
[2020-02-17] MEDS: Nystatin POWDER 60 GM JAR TP ×2 (08:14→13:43)
[2020-02-17 11:12] VITALS: BP 146/73; PULSE 63; RESP 17; TEMP 36.7; O2SAT 98
[2020-02-17 13:05] VITALS: PULSE 70
--- NOTE | 2020-02-17 13:55 | W.PM.DS.N ---
Date of service: 02/17/20 Time of Service: 13:56 DS: Diagnosis Discharge Diagnosis (1) Palliative care patient: Status: Acute (2) Physician orders for life-sustaining treatment (POLST) form indicates patient wish for [id number] status: Status: Acute (3) Paroxysmal atrial fibrillation: Status: Chronic (4) Ambulatory dysfunction: Status: Chronic (5) Nausea & vomiting: Status: Acute (6) Facial droop: Status: Acute (7) Diabetic peripheral neuropathy: Status: Acute Discharge Plan Disposition Patient Disposition: HOME W/HOME HEALTH SERVICE Condition: Good Discharge Details Reason For Visit: NAUSEA AND VOMITING,HEAD INJURY WITH CONCUSSION Admit Date/Time: 02/15/20 07:50 Admit Provider: Dameon Gonzalez Attending Provider: Dameon Gonzalez [facility]: 69-year-old male with a history of diabetes mellitus, paroxysmal atrial fibrillation, previous CVA with residual left-sided hemiparesis, essential hypertension who presented emergency department after falling and striking his head and sustaining a concussion. There was no loss of consciousness. He had been seen in the emergency department had a CT scan of his head but then was sent home. However he presented back to the emergency department with intractable nausea and vomiting. Initial CT scan of his head had been performed during his first ER visit in the exploration driller hours on February 14, 2020 and was read as normal. However he does have evidence of an old right occipital infarct and right basal ganglia lacunar infarct and generalized cerebral atrophy. But no mass-effect or midline shift or intracranial hemorrhage was seen. Follow-up CT scan of the head was performed without contrast when he represented to the emergency department with intractable nausea vomiting. Again no acute intracranial findings were found and he has stable chronic post ischemic findings as noted before. Because of the intractable nausea and vomiting CT scan of the abdomen following renal protocol. This demonstrated some abnormal stranding around the tail the pancreas that was read as probable acute pancreatitis with no pseudocyst and no pancreatic mass seen. However his serum lipase was within normal limits and clinically he did not seem to have pancreatitis. However additional serendipitous findings included renal cysts as well as a 22 x 19 mm nodule in the inferior aspect of his right kidney that because of lack of contrast was difficult to assess the quality but it was suggested it might be a renal mass and was recommended contrasted few CT scan or MRI be performed. He also had some mild wall thickening and stranding in the lower rectum suggestive of a proctitis however clinically he did not have symptoms of proctitis. His nausea and vomiting resolved he was given IV fluids his electrolyte abnormalities including hypokalemia with a potassium of 2.8 on presentation and hypomagnesemia with a magnesium level 1.5 were corrected with both IV and oral supplementation. At the time of discharge his potassium was up to 3.8 and his magnesium was up to 1.8. As he had no further nausea or vomiting and no headache and no focal neurologic symptoms beyond his chronic deficits from his CVA it was felt that he could be safely discharged home. He was resumed on his home dose of apixaban and aspirin. He was cautioned to watch for any signs or symptoms of new or worsening headaches or recurrent nausea or vomiting as these could be signs of increased intracranial pressure due to a subdural bleed. Patient will have follow-up outpatient labs including a BMP and magnesium level in 1 week. Home Meds and New Rx's Prescriptions: New potassium chloride [Klor-Con M20] 20 mEq Tablet,Er Particles/Crystals 20 meq PO BID Qty: 60 RF: 0 Continued mirtazapine 15 mg tablet 15 mg PO DAILY RF: 0 ProAir RespiClick 90 MCG aerosol powdr breath activated 90 mcg Inhalation Q4H PRN PRNRF: 0 ketorolac 0.4 % drops 1 drp OP QID RF: 0 (DME) nebulizers Misc See Rx Instructions .ROUTE .MEDSUPPLY Qty: 1 RF: 0 (DME) oxygen-air delivery systems Device See Rx Instructions .ROUTE .MEDSUPPLY Qty: 1 RF: 0 ezetimibe [Zetia] 10 MG tablet 10 mg PO QAM RF: 0 isosorbide mononitrate 120 MG tablet extended release 24 hr 120 mg PO QAM RF: 0 atorvastatin [Lipitor] 80 MG tablet 80 mg PO HS RF: 0 ropinirole 2 MG tablet 2 mg PO HS RF: 0 multivitamin [Daily Multi-Vitamin] 1 EACH tablet 1 tab PO QAM RF: 0 tamsulosin 0.4 mg Capsule 0.4 mg PO DAILY RF: 0 omeprazole 20 MG capsule,delayed release(DR/EC) 40 mg PO DAILY RF: 0 aspirin 81 mg Tablet,Delayed Release (Dr/Ec) 81 mg PO DAILY Qty: 0 RF: 0 ferrous sulfate 325 mg (65 mg iron) Tablet 325 mg PO BID Qty: 0 RF: 0 Eliquis 5 mg Tablet 5 mg PO BID Qty: 60 RF: 0 metoprolol succinate 100 MG tablet extended release 24 hr 150 mg PO DAILY Qty: 45 RF: 0 furosemide [Lasix] 20 mg tablet 20 mg PO QAM Qty: 4 RF: 0 gabapentin 300 mg Capsule 400 mg PO HS RF: 0 polyethylene glycol 3350 [Miralax] 17 gram Powder In Packet 17 g PO DAILY RF: 0 nitroglycerin [Nitrostat] 0.4 mg Tablet, Sublingual 0.4 mg sublingual PRN PRNRF: 0 fluoxetine 20 mg Capsule 20 mg PO DAILY RF: 0 fluticasone propionate [Flonase Allergy Relief] 50 mcg/actuation [place],Suspension 2 spray INTRANASAL DAILY RF: 0 budesonide-formoterol [Symbicort] 80-4.5 mcg/actuation Hfa Aerosol Inhaler 2 puff INHALATION BID RF: 0 levothyroxine 150 mcg tablet 150 mcg PO DAILY RF: 0 clotrimazole 1 % cream 1 applic TOPICAL DIRECTED PRNRF: 0 cholecalciferol (vitamin D3) 25 mcg (1,000 unit) tablet 1,000 unit PO DAILY RF: 0 metformin 500 mg tablet extended release 24 hr 500 mg PO DAILY RF: 0 lisinopril 2.5 mg tablet 2.5 mg PO DAILY RF: 0 Trulicity 1.5 mg/0.5 mL pen injector 1.5 mg SUBCUT DIRECTED RF: 0 Levemir FlexTouch U-100 Insuln 100 unit/mL (3 mL) insulin pen 28 unit SC DAILY RF: 0 Changed Slow-Mag 71.5 mg Tablet,Delayed Release (Dr/Ec) 71.5 mg PO BID Qty: 0 RF: 0 Discharge Instructions Instructions: Dehydration (DC), Hypokalemia (DC), Concussion (DC) Additional Instructions: Notify your physician or go to the nearest emergency room if you are experiencing any headaches, nausea or vomiting, or lethargy. Close head injuries can be accompanied by slow internal bleeding which can result in coma or if unrecognized. You are on a chronic anticoagulant (Apixaban and aspirin) for atrial fibrillation and stroke prevention. This can lead to internal bleeding if there is a serious injury such as a fall leading to trauma. Your CT of the head did not show any internal bleeding however subdural bleeding can occur days after an injury. At this time you may safely resume your anticoagulants, however, you should take precautions to prevent further falls. Use your walker regularly. Stand Alone Forms: Nursing Discharge Form Referrals: Abdullahi Gilliland [Primary Care Provider] - 02/24/20 11:00 am Activity:: Activity as Tolerated Equipment/Supplies:: No Equipment Needed Diet:: Carb Counting Discharge Orders Discharge Orders: Discharge Order (Routine); Ordered 02/17/20 Ordered By: Matt Seay Other Ambulatory Orders: Basic Metabolic Panel (Routine) Timeframe: 1 Week Facility: [facility] - Location: Laboratory Outpatient Ordered By: Matt Seay Magnesium (Routine) Timeframe: 1 Week Facility: [facility] - Location: Laboratory Outpatient Ordered By: Matt Seay Discharge Data Discharge Date/Time-TO BE ENTERED AT DEPARTURE: 02/17/20 14:39 DS: Summary Status at Discharge Functional status at discharge: uses cane/walker Overall status at discharge: patient is back to baseline Mental Status: mental status grossly normal Speech and Movement: speech and movement normal Mood: congruent mood Affect: normal affect Exam Psych Mental Status: mental status grossly normal Speech and Movement: speech and movement normal Mood: congruent mood Affect: normal affect DS: Data Vitals/I&O Vitals and I&O: Vital Signs Temperature 36.7 C 02/17/20 11:12 Temperature Source Temporal Artery Scan 02/17/20 11:12 Pulse 70 02/17/20 13:05 Pulse Rhythm Regular 02/17/20 09:16 Pulse 81 02/14/20 19:31 Respiratory Rate 17 02/17/20 11:12 Respiratory Effort Non-Labored 02/17/20 09:16 Respiratory Depth Normal 02/17/20 09:16 Respiratory Pattern Normal 02/17/20 09:16 Blood Pressure 146/73 H 02/17/20 11:12 Blood Pressure Mean 101 02/14/20 19:31 Blood Pressure Position Supine 02/14/20 17:49 Pulse Oximetry 98 02/17/20 11:12 Oxygen Delivery Method Cpap 02/17/20 11:12 Oxygen Flow Rate 0 02/17/20 07:40 Fraction of Inspired Oxygen (FIO2) 21 02/17/20 00:00 Pain Level 0 02/17/20 11:12 Comment 02/15/20 12:50 Intake & Output 02/16/20 02/17/20 02/17/20 23:59 11:59 23:59 Intake Total 480 / 740 120 / 360 240 / 360 Output Total 200 / 1300 1400 / 1400 Balance 280 / -560 -1280 / -1040 240 / -1040 Weight 113 kg Intake: Oral 480 / 730 120 / 360 240 / 360 Output: Urine 200 / 1300 1400 / 1400 Other: Urine Color Yellow Yellow Urine Appearance Clear Clear Urine Odor Normal Normal Comment SPOT [employer]ER report pt urinated in urinal Voiding Methods Toilet Toilet Data Completed and Pending Labs on day of discharge: Labs from last 24 hours 02/17/20 06:12 Sodium 138 Potassium 3.8 D Chloride 103 Carbon Dioxide 28.1 Anion Gap 6.9 BUN 16 D Creatinine 1.38 H Estimated GFR/1.73 m2 51.40 Glucose 173 H Calcium 8.9 Magnesium 1.8 PFSH Medical History Anxiety with depression Aortic valve replaced Back pain CAD (coronary artery disease) COPD (chronic obstructive pulmonary disease) CVA (cerebral vascular accident) Diabetic neuropathy DM (diabetes mellitus) GERD (gastroesophageal reflux disease) H/O: HTN (hypertension) Hematuria HFrEF (heart failure with reduced ejection fraction) History of bloody stools HTN (hypertension) Hx of fall Hyperlipidemia Hypothyroidism Hypothyroidism (acquired) Insomnia Memory impairment Obesity IVETTE (obstructive sleep apnea) IVETTE on CPAP Pacemaker Paroxysmal atrial fibrillation Passive suicidal ideations Perforated tympanic membrane Polypharmacy Proteinuria Rash, skin Renal insufficiency Sick sinus syndrome Sinus node dysfunction Tinea cruris Surgical History Coronary Artery Bypass Gaft (CABG) Coronary Stent CABGx4 H/O carotid endarterectomy Pacemaker Replacement of aortic valve Family History Other Cancer Heart disease Social History Smoking/Tobacco Use Status: Never Smoking risk assessment performed?: Yes Alcohol Intake: former Drug use: Never Substance use type: does not use Details: Pt reports no alcohol since his heart attack 1995 Household members: none Housing: other Details: [facility] Number of Children: 2 current occupation: Lives at [facility]. Disabled since . Seatbelt use: always Do you feel safe at home: Yes Do you feel safe in your relationship?: Yes Additional Social history: lives alone, area on aging comes in to assiste pt. Reports safety issue regarding leg giving out.
--- NOTE | 2020-02-17 14:43 | CHAPLAIN ---
Sher said he had some trouble sleeping last night and was tired today, but other than that he was ok. We talked yesterday about his interest in cremation and I suggested he consult his emergency care attendant. He talked about about this issue with Dr. Martin when she was with him for a PC consult
--- NOTE | 2020-02-17 15:30 | PDOC.CMDIS ---
- If Service Date Differs Date of service: 02/17/20 Time of Service: 15:30 LACE Index Scoring Tool - Questions: Length of Stay (in days): 3 Acuity (Admit via E.D.?): Yes Comorbidities: Cerebrovascular Disease, Diabetes w/o Complication, Chronic Pulmonary Disease E.D. Visits: 16 - Answers: Total Score: 15 Risk of Readmission: High Risk Care Management Discharge Reason for Hospitalization: Nausea and vomiting, head injury with concussion. Discharge Plan: Sher will return home with a resumption of HH RN, with the addition of PT. He will resume care with his community field nurse case manager as well, including Franklyn from [facility], Miryam/Xochitl from [facility], and [facility]. They will continue to assist him with obtaining a motorized wheelchair in the community. He will transport via [facility]. He is happy to be returning home. Patient/Family Education Needs: Review discharge instructions regarding activity levels and medications, discussion of self care needs including ask me three and goals of care. Services Needed at Discharge: Home Health Care Services (RN, PT), Transportation (RCT)
--- NOTE | 2020-02-17 15:56 | PT.INTREAT ---
Date of service: 02/17/20 Time of Service: 11:30 PT Notes Visit Reasons: NAUSEA AND VOMITING,HEAD INJURY WITH CONCUSSION Inpatient Physical Therapy Treatment Note [facility] Date: 02/17/2020 PRECAUTIONS: Fall SUBJECTIVE: Sher is pleasant and agreeable to participating in PT, he is hopeful to return to home later today. He also reports that he completed UE exercises utilizing 1# dumbbells independently in his room this morning. OBJECTIVE: PAIN: No c/o pain BED MOBILITY/TRANSFERS Sit-stand: S Stand-sit: S GAIT Assistive Device: FWW Weight bearing: Full Assist: S Distance: 300' THEREX: Patient was instructed in an UE strengthening program, in a seated position, as per flow sheet. He utilizing 1# dumbbells for exercise completion. ASSESSMENT: Patient tolerated session well without complaint. He was able to tolerate a gait distance progression utilizing FWW support. PLAN: Continue with global strengthening and gait training via PT. TREATMENT CODE/TIME: 20 minutes; [id number]
--- NOTE | 2020-02-20 16:50 | INDS_ITS ---
Date of service: 02/20/20 PT Notes Visit Reasons: NAUSEA AND VOMITING,HEAD INJURY WITH CONCUSSION Physical Therapy Inpatient Discharge Summary Date: 02/20/20 Date of service: 02/15/2020 through 02/17/2020 This is a clinical summary of care provided on the duration of dates listed above. No charge was made in the completion of this documentation. Referring Doctor: Dameon Gonzalez PT Orders: PT CONSULT: Exacerbation of Chronic Condition Limited Ability Precautions: Standard Patient Profile/Admitting Diagnosis: Orders received for this 69-year-old male. Patient states that at baseline he is functional activity is not very high due to a history of CVA with left side affect. Patient states that he recently suffered a fall after his legs gave out. Patient states that he hit his head but did not necessarily lose his consciousness. Patient states that ever since then he has had nausea with standing and sitting up and has felt like his head is constantly in a fog. He feels like he does not have a lot of the same strength. PMHX: Medical History Anxiety with depression Aortic valve replaced Back pain CAD (coronary artery disease) COPD (chronic obstructive pulmonary disease) CVA (cerebral vascular accident) Diabetic neuropathy DM (diabetes mellitus) GERD (gastroesophageal reflux disease) H/O: HTN (hypertension) Hematuria HFrEF (heart failure with reduced ejection fraction) History of bloody stools HTN (hypertension) Hx of fall Hyperlipidemia Hypothyroidism Hypothyroidism (acquired) Insomnia Memory impairment Obesity IVETTE (obstructive sleep apnea) IVETTE on CPAP Pacemaker Paroxysmal atrial fibrillation Passive suicidal ideations Perforated tympanic membrane Polypharmacy Proteinuria Rash, skin Renal insufficiency Sick sinus syndrome Sinus node dysfunction Tinea cruris Surgical History Coronary Artery Bypass Gaft (CABG) Coronary Stent CABGx4 H/O carotid endarterectomy Pacemaker Replacement of aortic valve Social History/Home Situation: Patient lives at home alone in the [facility]. He does have a walker that he utilizes at baseline. Patient states that he is on a list and has already been accepted to receive a motorized wheelchair Equipment Owned/DME: Front wheel walker Subjective: NT. See most recent COMMERCIAL TITLE EXAMINER notes. Objective: NT. See most recent COMMERCIAL TITLE EXAMINER notes. Mental Status: NT. See most recent COMMERCIAL TITLE EXAMINER notes. Pain: NT. See most recent COMMERCIAL TITLE EXAMINER notes. ROM: Right Upper Extremity: Within functional limits Left Upper Extremity: Within functional limit Right Lower Extremity: Within functional limits Left Lower Extremity: Within functional limits Strength: Right Upper Extremity: Globally 5 out of 5 Left Upper Extremity: Globally 4+ to 5 out of 5 Right Lower Extremity: Globally 5 out of 5 Left Lower Extremity: Globally 4+ to 5 out of 5 Bed Mobility/Transfers: Contact-guard assist Supine-sit: Supervision Sit-stand: Supervision Stand-sit: Supervision Gait: Up to 200 feet using front wheeled walker with full weightbearing requiring supervision assist. Balance: Static Sitting: Normal Dynamic Sitting: Normal Static Standing: Good Dynamic Standing: Fair ASSESSMENT: Sher demonstrates significant improvement in mobility ADL performance during this episode of care. He will benefit from home health PT services in order to facilitate a smooth transition to home and reduce fall risk. Goals: Goals X1 week MET 1. Supine-Sit supervision MET 2. Sit-Supine supervision MET 3. Sit-Stand supervision MET 4. Stand-Sit supervision MET 5. Bed-Chair supervision MET 6. Gait supervision with the assistance of front wheel walker up to 100 feet MET DISCHARGE RECOMMENDATIONS: Back to his living arrangement at [facility] once goals have been completed and medical stability has been ascertained TREATMENT CODE/TIME: NC Thank you for the opportunity to participate in the care of this patient. Melissa Cavazos PT, DPT, CLT [facility] [place], [place]
== END 2020-02-17 14:39 | disposition home health service (06) | DRG 89 ==
LOC: ER 19:13 → MS 19:59
PROVIDERS: Internal Medicine; Admitting Provider Family Medicine; Emergency Provider Emergency Medicine; PCP Family Medicine; Visit Provider Family Medicine
DX: S06.0X0A Concussion without loss of consciousness, initial encounter (principal); I50.32 Chronic diastolic (congestive) heart failure; Z68.42 Body mass index [BMI] 45.0-49.9, adult; I69.354 Hemiplegia and hemiparesis following cerebral infarction affecting left non-dominant side; I25.10 Atherosclerotic heart disease of native coronary artery without angina pectoris; I11.0 Hypertensive heart disease with heart failure; E11.65 Type 2 diabetes mellitus with hyperglycemia; Z79.4 Long term (current) use of insulin; W18.39XA Other fall on same level, initial encounter; Z79.01 Long term (current) use of anticoagulants; E87.6 Hypokalemia; E83.42 Hypomagnesemia; F41.8 Other specified anxiety disorders; Z95.2 Presence of prosthetic heart valve; J44.9 Chronic obstructive pulmonary disease, unspecified; E11.42 Type 2 diabetes mellitus with diabetic polyneuropathy; K21.9 Gastro-esophageal reflux disease without esophagitis; E78.5 Hyperlipidemia, unspecified; E03.9 Hypothyroidism, unspecified; G47.00 Insomnia, unspecified; G47.33 Obstructive sleep apnea (adult) (pediatric); E66.9 Obesity, unspecified; Z95.0 Presence of cardiac pacemaker; I48.0 Paroxysmal atrial fibrillation; Z66 Do not resuscitate; R11.2 Nausea with vomiting, unspecified; R26.81 Unsteadiness on feet; R29.6 Repeated falls; Z91.81 History of falling; S00.03XA Contusion of scalp, initial encounter; R93.421 Abnormal radiologic findings on diagnostic imaging of right kidney; I69.392 Facial weakness following cerebral infarction
CPT/HCPCS: 36415; 76770; 80048; 80053; 82805; 83690; 93005; 94640; 97110; 97162; 97530; 99220; 99232; 99239; 99255; U0003; 70450; 74176; 81003; 81015; 82248; 83735; 84439; 84443; 84484; 85025; 85610; 85730; 87086; 93010; G0378; J0780; J2405; J3475; J3480; J3490

== ENCOUNTER 2020-02-18 10:56 | Emergency (ER) | payer OTHER, MEDICAID, SELFPAY ==
[2020-02-18] VITALS (20 sets, daily range): BP systolic 130–181; BP diastolic 64–89; PULSE 68–73; RESP 5–21; TEMP 36.1; O2SAT 90–100
--- NOTE | 2020-02-18 10:45 | RT.EKG_ITS ---
APPROVED REPORT Exam: Resting ECG Patient Location: E HR:71 bpm ECG Measurements Heart Rate 71 AXIS MI 218 P 57 QRSd 152 QRS -35 QT 439 T 113 QTc 478 Conclusion Sinus rhythm. Right bundle branch block. Inferior q waves
--- NOTE | 2020-02-18 11:18 | ED.GENADUL_ITS ---
Discharge Plan Disposition Patient Disposition: HOME Condition: Stable Discharge Details Clinical Impression: Chronic headache, Dizziness Primary Care Provider: Abdullahi Gilliland ED Provider: Mounika Persaud Home Meds and New Rx's Prescriptions: Continued mirtazapine 15 mg tablet 15 mg PO DAILY RF: 0 ProAir RespiClick 90 MCG aerosol powdr breath activated 90 mcg Inhalation Q4H PRN PRNRF: 0 ketorolac 0.4 % drops 1 drp OP QID RF: 0 (DME) nebulizers Misc See Rx Instructions .ROUTE .MEDSUPPLY Qty: 1 RF: 0 (DME) oxygen-air delivery systems Device See Rx Instructions .ROUTE .MEDSUPPLY Qty: 1 RF: 0 ezetimibe [Zetia] 10 MG tablet 10 mg PO QAM RF: 0 isosorbide mononitrate 120 MG tablet extended release 24 hr 120 mg PO QAM RF: 0 atorvastatin [Lipitor] 80 MG tablet 80 mg PO HS RF: 0 ropinirole 2 MG tablet 2 mg PO HS RF: 0 multivitamin [Daily Multi-Vitamin] 1 EACH tablet 1 tab PO QAM RF: 0 tamsulosin 0.4 mg Capsule 0.4 mg PO DAILY RF: 0 omeprazole 20 MG capsule,delayed release(DR/EC) 40 mg PO DAILY RF: 0 aspirin 81 mg Tablet,Delayed Release (Dr/Ec) 81 mg PO DAILY Qty: 0 RF: 0 ferrous sulfate 325 mg (65 mg iron) Tablet 325 mg PO BID Qty: 0 RF: 0 Eliquis 5 mg Tablet 5 mg PO BID Qty: 60 RF: 0 metoprolol succinate 100 MG tablet extended release 24 hr 150 mg PO DAILY Qty: 45 RF: 0 furosemide [Lasix] 20 mg tablet 20 mg PO QAM Qty: 4 RF: 0 gabapentin 300 mg Capsule 400 mg PO HS RF: 0 polyethylene glycol 3350 [Miralax] 17 gram Powder In Packet 17 g PO DAILY RF: 0 nitroglycerin [Nitrostat] 0.4 mg Tablet, Sublingual 0.4 mg sublingual PRN PRNRF: 0 fluoxetine 20 mg Capsule 20 mg PO DAILY RF: 0 fluticasone propionate [Flonase Allergy Relief] 50 mcg/actuation [place],Suspension 2 spray INTRANASAL DAILY RF: 0 budesonide-formoterol [Symbicort] 80-4.5 mcg/actuation Hfa Aerosol Inhaler 2 puff INHALATION BID RF: 0 levothyroxine 150 mcg tablet 150 mcg PO DAILY RF: 0 clotrimazole 1 % cream 1 applic TOPICAL DIRECTED PRNRF: 0 cholecalciferol (vitamin D3) 25 mcg (1,000 unit) tablet 1,000 unit PO DAILY RF: 0 metformin 500 mg tablet extended release 24 hr 500 mg PO DAILY RF: 0 lisinopril 2.5 mg tablet 2.5 mg PO DAILY RF: 0 Trulicity 1.5 mg/0.5 mL pen injector 1.5 mg SUBCUT DIRECTED RF: 0 Levemir FlexTouch U-100 Insuln 100 unit/mL (3 mL) insulin pen 28 unit SC DAILY RF: 0 potassium chloride [Klor-Con M20] 20 mEq Tablet,Er Particles/Crystals 20 meq PO BID Qty: 60 RF: 0 Slow-Mag 71.5 mg Tablet,Delayed Release (Dr/Ec) 71.5 mg PO BID Qty: 0 RF: 0 Discharge Instructions Instructions: Dizziness (ED), General Headache (ED) Additional Instructions: Drink plenty of fluids and get plenty of rest. Take Tylenol as needed and directed for pain. Follow-up with your primary care doctor in 1 week. Return to the emergency department with any worsening or new concerning symptoms. Discharge Data Discharge Date/Time-TO BE ENTERED AT DEPARTURE: 02/18/20 15:35 Discharge Physician: Mounika Persaud Medical Decision Making 59-year-old male with multiple medical problems with recent hospital admission for headaches and dizziness after head injury who was discharged home yesterday presents for headache and dizziness this morning. Patient admits to frequent headache and dizziness since his head injury 2 weeks ago. He has had 2 recent negative head CTs. Vitals within normal limits. EKG notes a rate of 71, sinus, right bundle branch block with no acute change from previous. He has no focal deficits on exam. He has slurred speech which is chronic. Differential diagnosis includes postconcussive syndrome, acute CVA, dehydration, acute on chronic dizziness, electrolyte abnormality. Will place an IV, bolus IV fluids, screening labs, urinalysis, CT head and chest x-ray and reassess. Labs and imaging reviewed and unremarkable. Patient reassessed and he feels much better. He was able to ambulate with a walker and denied any dizziness and feels good to go home. Advised to follow up with the primary care doctor for re-evaluation. Usual and customary return precautions given prior to discharge. Medical Records Medical records reviewed: Yes I reviewed the patient's medical records. Imaging Data Radiologic Study: Radiologist's impression: CT HEAD WO CLINICAL HISTORY: headache, dizziness, r/o acute cva. TECHNIQUE: Imaging Protocol: Axial computed tomography images with coronal and sagittal reformatted images were created and reviewed COMPARISON: CT CT HEAD WO from 02/14/2020 FINDINGS: There are no skull fractures nor fluid in the visualized paranasal sinuses. Again noted is evidence of an prior right temporal occipital infarct, unchanged there is also small nonhemorrhagic lacunar infarct measuring by 3 millimeters located in the posterior limb of the right internal capsule, slightly larger than previous but this may be related to technical factors. No evidence of hemorrhage or new territorial infarction. Symmetrical bifrontal atrophy again noted. IMPRESSION: No acute intracranial findings on this noninfused CT scan of the brain.Previously described nonacute ischemic findings are again noted. Vascular calcification in the vertebral arteries and internal carotid arteries at the skull base noted. XR CHEST 2V PA LATERAL CLINICAL HISTORY: dizziness, r/o acute disease. TECHNIQUE: 2D digital imaging was performed. COMPARISON: CR,XR XR CHEST 2V PA LATERAL from 12/15/2019 FINDINGS: Again noted is a bipolar left subclavian pacemaker lead tips on RA and RV, sternotomy wires, and a aortic stent valve which is unchanged in position. Cardiomegaly is unchanged Lungs are clear. No infiltrates nor pleural effusions. No pulmonary edema. No pleural effusions. IMPRESSION: No acute pulmonary findings.Cardiac findings as above. Lab Data Lab results reviewed: Yes I reviewed the patient's lab results. Labs: 02/18/20 11:15 Urine - Reflex from Ua Urine Culture - Pending Laboratory Tests Range/Units 02/18/20 02/18/20 02/18/20 11:15 11:45 11:45 WBC (4.4-10.8) 10^3/uL RBC (4.36-5.78) 10^6/uL Hgb (13.5-17.5) g/dL Hct (40.0-50.0) % MCV (80-95) fL MCH (27.0-33.0) pg MCHC (32.0-36.0) % RDW (11.8-14.1) % Plt Count (130-400) 10^3/uL MPV (8.0-11.0) fL Immature Gran % Neutrophils % Lymphocytes % Monocytes % Eosinophils % Basophils % Nucleated RBC % % Absolute Neutrophils (1.2-6.7) 10^3/uL Absolute Lymphocytes (1.2-3.4) 10^3/uL Absolute Monocytes (0.1-0.8) 10^3/uL Absolute Eosinophils (0.0-0.7) 10^3/uL Absolute Basophils (0.0-0.2) 10^3/uL Sodium (136-145) mmol/L 140 Potassium (3.5-5.1) mmol/L 4.1 Chloride (98-107) mmol/L 105 Carbon Dioxide (21.0-32.0) mmol/L 31.1 Anion Gap (3-11) mmol/L 3.9 BUN (7-18) mg/dL 24 H Creatinine (0.70-1.30) mg/dL 1.38 H Estimated GFR/1.73 m2 (mL/min/1.73m2) 51.40 Glucose (74-106) mg/dL 173 H Calcium (8.5-10.1) mg/dL 9.3 Magnesium (1.8-2.4) mg/dL 1.8 Total Bilirubin (0.2-1.0) mg/dL 1.2 H AST (15-37) U/L 24 ALT (16-63) U/L 27 Alkaline Phosphatase (46-116) U/L 84 Troponin I (<0.06) ng/mL < 0.05 Total Protein (6.4-8.2) g/dL 6.5 Albumin (3.4-5.0) g/dL 2.7 L TSH (0.36-3.74) uIU/mL 4.74 H Free T4 (0.76-1.46) ng/dL 1.12 Urine Color (Yellow) Yellow Urine Clarity (Clear) Clear Urine pH (5-8) 5.5 Ur Specific [place] (1.005-1.025) 1.015 Urine Protein (Negative) mg/dL >=300 H Urine Ketones (Negative) mg/dL Negative Urine Blood (Negative) Small H Urine Nitrite (Negative) Negative Urine Bilirubin (Negative) Negative Urine Urobilinogen (Up TO 0.2) EU/dL 0.2 Ur Leukocyte Esterase (Negative) Negative Urine RBC (0-2) HPF 0-2 Urine WBC (0-5) HPF 0-2 Ur Epithelial Cells (Negative) HPF Few Urine Crystals (Negative) HPF Negative Urine Bacteria (Negative) HPF Rare Urine Casts (Negative) LPF Negative Urine Mucus (Negative) Negative Ur Culture Indicated? Yes Urine Glucose (Negative) mg/dL 100 Range/Units 02/18/20 11:45 WBC (4.4-10.8) 10^3/uL 5.66 RBC (4.36-5.78) 10^6/uL 4.51 Hgb (13.5-17.5) g/dL 13.1 L Hct (40.0-50.0) % 39.4 L MCV (80-95) fL 87.4 MCH (27.0-33.0) pg 29.0 MCHC (32.0-36.0) % 33.2 RDW (11.8-14.1) % 15.7 H Plt Count (130-400) 10^3/uL 211 MPV (8.0-11.0) fL 9.8 Immature Gran % 0.4 Neutrophils % 47.6 Lymphocytes % 37.6 Monocytes % 9.7 Eosinophils % 3.5 Basophils % 1.2 Nucleated RBC % % 0 Absolute Neutrophils (1.2-6.7) 10^3/uL 2.69 Absolute Lymphocytes (1.2-3.4) 10^3/uL 2.13 Absolute Monocytes (0.1-0.8) 10^3/uL 0.55 Absolute Eosinophils (0.0-0.7) 10^3/uL 0.20 Absolute Basophils (0.0-0.2) 10^3/uL 0.07 Sodium (136-145) mmol/L Potassium (3.5-5.1) mmol/L Chloride (98-107) mmol/L Carbon Dioxide (21.0-32.0) mmol/L Anion Gap (3-11) mmol/L BUN (7-18) mg/dL Creatinine (0.70-1.30) mg/dL Estimated GFR/1.73 m2 (mL/min/1.73m2) Glucose (74-106) mg/dL Calcium (8.5-10.1) mg/dL Magnesium (1.8-2.4) mg/dL Total Bilirubin (0.2-1.0) mg/dL AST (15-37) U/L ALT (16-63) U/L Alkaline Phosphatase (46-116) U/L Troponin I (<0.06) ng/mL Total Protein (6.4-8.2) g/dL Albumin (3.4-5.0) g/dL TSH (0.36-3.74) uIU/mL Free T4 (0.76-1.46) ng/dL Urine Color (Yellow) Urine Clarity (Clear) Urine pH (5-8) Ur Specific [place] (1.005-1.025) Urine Protein (Negative) mg/dL Urine Ketones (Negative) mg/dL Urine Blood (Negative) Urine Nitrite (Negative) Urine Bilirubin (Negative) Urine Urobilinogen (Up TO 0.2) EU/dL Ur Leukocyte Esterase (Negative) Urine RBC (0-2) HPF Urine WBC (0-5) HPF Ur Epithelial Cells (Negative) HPF Urine Crystals (Negative) HPF Urine Bacteria (Negative) HPF Urine Casts (Negative) LPF Urine Mucus (Negative) Ur Culture Indicated? Urine Glucose (Negative) mg/dL ECG Data Attestation: I personally reviewed and interpreted this ECG (s) as follows: Interpretation: rate pf 71, sinus, RBBB, no STEMI, no change from previous. HPI General Mode of arrival: EMS . Date/Time Provider Initiated Documentation: 02/18/20 11:05 . Limitations to Documentation: no limitations . Information obtained by: patient . HPI Narrative: Patient is a 69-year-old male with multiple comorbidities who was discharged from the hospital yesterday after admitted for headache and intractable nausea and vomiting after head injury with 2 negative head CTs who presents for dizziness. Patient states he frequently has lightheadedness and dizziness when he wakes up and states this is not unusual. He has been having headaches off and on since his recent head injury and admits to a posterior headache currently at 7/10. He states he has some minimal dizziness at present. He states he has not yet eaten breakfast this morning. He states he is attempting to get up with help of his home health nurse and felt lightheaded and unsteady. He denies fever, blurry vision, chest pain, shortness of breath, abdominal pain, urinary symptoms, neck or back pain. Related Data Home Medications Medication Instructions Recorded Confirmed atorvastatin [Lipitor] 80 mg PO HS 01/05/14 02/18/20 ezetimibe [Zetia] 10 mg PO QAM 01/05/14 02/18/20 isosorbide mononitrate 120 mg PO QAM 01/05/14 02/18/20 multivitamin [Daily Multi-Vitamin] 1 tab PO QAM 01/05/14 02/18/20 ropinirole 2 mg PO HS 01/05/14 02/18/20 ProAir RespiClick 90 mcg INHALATION Q4H PRN PRN 07/10/17 02/18/20 mirtazapine 15 mg tablet 15 mg PO DAILY 07/23/18 02/18/20 gabapentin 400 mg PO HS 10/04/18 02/18/20 ketorolac 0.4 % eye drops 1 drp OP QID 04/01/19 02/18/20 nebulizers #1 each 04/01/19 02/18/20 oxygen-air delivery systems #1 04/01/19 02/18/20 fluoxetine 20 mg PO DAILY 05/29/19 02/18/20 nitroglycerin [Nitrostat] 0.4 mg SUBLINGUAL PRN PRN 05/29/19 02/18/20 polyethylene glycol 3350 [Miralax] 17 g PO DAILY 05/29/19 02/18/20 tamsulosin 0.4 mg PO DAILY 07/18/19 02/18/20 budesonide-formoterol [Symbicort] 2 puff INHALATION BID 09/02/19 02/18/20 fluticasone propionate [Flonase 2 spray INTRANASAL DAILY 09/02/19 02/18/20 Allergy Relief] omeprazole 40 mg PO DAILY 09/03/19 02/18/20 aspirin 81 mg PO DAILY #0 tab 09/09/19 02/18/20 ferrous sulfate 325 mg PO BID #0 tab 09/09/19 02/18/20 Eliquis 5 mg PO BID #60 tab 11/11/19 02/18/20 metoprolol succinate 150 mg PO DAILY #45 tab 11/11/19 02/18/20 furosemide [Lasix] 20 mg PO QAM #4 tab 12/08/19 02/18/20 Levemir FlexTouch U-100 Insuln 28 unit SC DAILY 01/31/20 02/18/20 Trulicity 1.5 mg SUBCUT DIRECTED 01/31/20 02/18/20 cholecalciferol (vitamin D3) 1,000 unit PO DAILY 01/31/20 02/18/20 clotrimazole 1 applic TOPICAL DIRECTED PRN 01/31/20 02/18/20 levothyroxine 150 mcg PO DAILY 01/31/20 02/18/20 lisinopril 2.5 mg PO DAILY 01/31/20 02/18/20 metformin 500 mg PO DAILY 01/31/20 02/18/20 Slow-Mag 71.5 mg PO BID #0 tab 02/17/20 02/18/20 potassium chloride [Klor-Con M20] 20 meq PO BID #60 tab 02/17/20 02/18/20 Previous Rx's Medication Instructions Recorded aspirin 81 mg PO DAILY #0 tab 09/09/19 ferrous sulfate 325 mg PO BID #0 tab 09/09/19 Eliquis 5 mg PO BID #60 tab 11/11/19 metoprolol succinate 150 mg PO DAILY #45 tab 11/11/19 furosemide [Lasix] 20 mg PO QAM #4 tab 12/08/19 Slow-Mag 71.5 mg PO BID #0 tab 02/17/20 potassium chloride [Klor-Con M20] 20 meq PO BID #60 tab 02/17/20 Allergies Allergy/AdvReac Type Severity Reaction Status Date / Time No Known Allergies Allergy Verified 02/18/20 11:50 General Stated Complaint: Dizzy/Sync [place]: 3 Review of Systems All systems reviewed & are unremarkable except as noted in HPI and below Constitutional Constitutional: Reports as per HPI, Denies chills, Denies fever(s) and Reports headache(s) Eyes Eyes: Denies blurry vision ENT Ears, Nose, Mouth, and Throat: Reports dizziness, Reports headache(s), Denies sore throat and Denies throat swelling Cardiovascular Cardiovascular: Denies chest pain and Denies dyspnea Respiratory Respiratory: Denies cough and Denies dyspnea Gastrointestinal Gastrointestinal: Denies abdominal pain, Denies diarrhea and Denies vomiting Genitourinary Genitourinary: Denies hematuria and Denies dysuria Musculoskeletal Musculoskeletal: Denies back pain and Denies numbness Integumentary/Breasts Skin/Breast: Denies lesions and Denies rash Neurologic Neurologic: Reports dizziness, Reports headache(s), Denies localized weakness and Denies numbness Allergic/Immunologic Allergic/Immunologic: Denies throat swelling PFSH Medical History Anxiety with depression Aortic valve replaced Back pain CAD (coronary artery disease) COPD (chronic obstructive pulmonary disease) CVA (cerebral vascular accident) Diabetic neuropathy DM (diabetes mellitus) GERD (gastroesophageal reflux disease) H/O: HTN (hypertension) Hematuria HFrEF (heart failure with reduced ejection fraction) History of bloody stools HTN (hypertension) Hx of fall Hyperlipidemia Hypothyroidism Hypothyroidism (acquired) Insomnia Memory impairment Obesity IVETTE (obstructive sleep apnea) IVETTE on CPAP Pacemaker Paroxysmal atrial fibrillation Passive suicidal ideations Perforated tympanic membrane Polypharmacy Proteinuria Rash, skin Renal insufficiency Sick sinus syndrome Sinus node dysfunction Tinea cruris Surgical History Coronary Artery Bypass Gaft (CABG) Coronary Stent CABGx4 H/O carotid endarterectomy Pacemaker Replacement of aortic valve Family History Other Cancer Heart disease Social History Smoking/Tobacco Use Status: Never Smoking risk assessment performed?: Yes Alcohol Intake: former Drug use: Never Substance use type: does not use Details: Pt reports no alcohol since his heart attack 1995 Household members: none Housing: other Details: [facility] Number of Children: 2 current occupation: Lives at [facility]. Disabled since . Seatbelt use: always Do you feel safe in your relationship?: Yes Additional Social history: lives alone, area on aging comes in to assiste pt. Reports safety issue regarding leg giving out. Exam Const General: cooperative, no acute distress and ill appearing chronically Orientation: alert, awake and oriented x3 HENMT Head: normal to inspection Face and sinus: normal facial exam Eyes General: appearance normal, both eyes and all related structures Pupils: PERRL EOM: EOM intact bilaterally Neck Neck: normal visual inspection and No submandibular swelling Lymphatic: no lymphadenopathy noted Chest Chest: normal inspection of the chest and no tenderness Resp Effort & Inspection: normal respiratory effort and able to speak in complete sentences Auscultation: clear to auscultation bilaterally Cardio Rate: regular rate Rhythm: regular rhythm GI Inspection: normal to inspection and obesity Palpation: soft, not firm, not rigid and nontender Auscultation: normal bowel sounds Skin General skin exam: no rashes or lesions noted Neuro General: patient alert, patient awake and patient oriented x3 Cranial Nerves: CN's II-XI intact bilaterally Cognition: normal cognition Speech: speech normal Motor: muscle tone normal throughout and strength 5/5 throughout Sensory Exam: no sensory deficits noted Extrem General: normal to inspection, full ROM, capillary refill normal, no calf te nderness bilaterally and edema Laterality: bilateral (1+ pitting) Psych Appearance: grossly normal Mental Status: mental status grossly normal Speech and Movement: speech and movement normal Affect: normal affect Course Vital Signs Vital signs: Vital Signs Temperature 97.0 F L 02/18/20 10:57 Pulse 72 02/18/20 10:57 Respiratory Rate 16 02/18/20 10:57 Blood Pressure 171/83 H 02/18/20 10:57 Pulse Oximetry 97 02/18/20 10:57 Temperature 97.0 F L 02/18/20 10:57 Temperature Source Skin 02/18/20 10:57 Pulse 72 02/18/20 10:57 Respiratory Rate 16 02/18/20 10:57 Blood Pressure 171/83 H 02/18/20 10:57 Blood Pressure Position Supine 02/18/20 10:57 Pulse Oximetry 97 02/18/20 10:57 Oxygen Delivery Method Room Air 02/18/20 10:57 Oxygen Flow Rate 0 02/18/20 10:57 Pain Level 0 02/18/20 10:57
[2020-02-18 11:51] LABS: Abs Immature Grans 0.02 10^3/uL (0.0-0.06); Absolute Basophil Count 0.07 10^3/uL (0.0-0.2); Absolute Lymphocyte Count 2.13 10^3/uL (1.2-3.4); Absolute Monocyte Count 0.55 10^3/uL (0.1-0.8); Absolute Neutrophil Count 2.69 10^3/uL (1.2-6.7); Basophils % 1.2; Eosinophils % 3.5; HCT 39.4 % (40.0-50.0); HGB 13.1 g/dL (13.5-17.5); Immature Grans % 0.4; Lymphocytes % 37.6; MCHC 33.2 % (32.0-36.0); MCV 87.4 fL (80-95); MPV 9.8 fL (8.0-11.0); Monocytes % 9.7; Neutrophils % 47.6; Nucleated RBC 0 %; Platelet Count 211 10^3/uL (130-400); RBC 4.51 10^6/uL (4.36-5.78); RDW 15.7 % (11.8-14.1); RDW-SD 50.1 fL; WBC 5.66 10^3/uL (4.4-10.8)
[2020-02-18 12:05] LABS: ALT 27 U/L (16-63); AST 24 U/L (15-37); Albumin 2.7 g/dL (3.4-5.0); Alkaline Phosphatase 84 U/L (46-116); Anion Gap 3.9 mmol/L (3-11); BUN 24 mg/dL (7-18); Bilirubin, Total 1.2 mg/dL (0.2-1.0); CO2 31.1 mmol/L (21.0-32.0); CREATININE 1.38 mg/dL (0.70-1.30); Calcium 9.3 mg/dL (8.5-10.1); Chloride 105 mmol/L (98-107); Glucose 173 mg/dL (74-106); Potassium 4.1 mmol/L (3.5-5.1); Sodium 140 mmol/L (136-145); Total Protein 6.5 g/dL (6.4-8.2)
[2020-02-18 12:13] LABS: Magnesium 1.8 mg/dL (1.8-2.4); TSH (W/Ref FT4) 4.74 uIU/mL (0.36-3.74)
--- NOTE | 2020-02-18 12:15 | DI.RAD_ITS ---
EXAM: XR CHEST 2V PA LATERAL CLINICAL HISTORY: dizziness, r/o acute disease. TECHNIQUE: 2D digital imaging was performed. COMPARISON: CR,XR XR CHEST 2V PA LATERAL from 12/15/2019 FINDINGS: Again noted is a bipolar left subclavian pacemaker lead tips on RA and RV, sternotomy wires, and a ao rtic stent valve which is unchanged in position. Cardiomegaly is unchanged Lungs are clear. No infiltrates nor pleural effusions. No pulmonary edema. No pleural effusions. IMPRESSION: No acute pulmonary findings.Cardiac findings as above. DATA REPOSITORY: RADIATION DOSE DELIVERED:
[2020-02-18 12:22] LABS: Troponin I < 0.05 ng/mL (<0.06)
[2020-02-18 12:37] LABS: Bilirubin Negative (Negative); Blood Small (Negative); Clarity Clear (Clear); Glucose 100 mg/dL (Negative); Ketones Negative (Negative); Leukocyte Esterase Negative (Negative); Nitrite Negative (Negative); Specific Gravity 1.015 (1.005-1.025); Urobilinogen 0.2 EU/dL (Up TO 0.2); pH 5.5 (5-8)
[2020-02-18 12:40] LABS: FREE T4 1.12 ng/dL (0.76-1.46)
[2020-02-18 12:53] LABS: Bacteria Rare HPF (Negative); Casts Negative LPF (Negative); Crystals Negative HPF (Negative); Epithelial Cells Few HPF (Negative); Mucus Negative (Negative); RBC 0-2 HPF (0-2); WBC 0-2 HPF (0-5)
[2020-02-18 12:54] LABS: C & S Indicated? Yes
--- NOTE | 2020-02-18 12:54 | DI.CT_ITS ---
EXAM: CT HEAD WO CLINICAL HISTORY: headache, dizziness, r/o acute cva. TECHNIQUE: Imaging Protocol: Axial computed tomography images with coronal and sagittal reformatted images were created and reviewed COMPARISON: CT CT HEAD WO from 02/14/2020 FINDINGS: There are no skull fractures nor fluid in the visualized paranasal sinuses. Again noted is evidence of an prior right temporal occipital infarct, unchanged there is also small n onhemorrhagic lacunar infarct measuring by 3 millimeters located in the posterior limb of the right i nternal capsule, slightly larger than previous but this may be related to technical factors. No evid ence of hemorrhage or new territorial infarction. Symmetrical bifrontal atrophy again noted. IMPRESSION: No acute intracranial findings on this noninfused CT scan of the brain.Previously described nonacute ischemic findings are again noted. Vascular calcification in the vertebral arteries and internal car otid arteries at the skull base noted. RADIATION DOSE DELIVERED: 858.68mGy.cm Total DLP DATA REPOSITORY: All CT scans at this facility are submitted to the National Radiology Data Registry (NRDR) Dose Index Registry (DIR) with the [employer] ([employer]). RADIATION OPTIMIZATION: All CT scans at this facility use at least one of these dose optimization te chniques: automated exposure control; mA and/or kV adjustment per patient size (includes targeted exa ms where dose is matched to clinical indication); or iterative reconstruction.
[2020-02-18] MEDS: Normal Saline 250 ML IV (14:08)
[2020-02-18] MEDS: ACETAMINOPHEN 1,000 MG/100 ML BTL 400 MG IVPB (14:08)
--- NOTE | 2020-02-18 15:44 | NUR.NOTE ---
Patient stated prior to discharge that he was missing his shoes. This nurse and SMITA Dumont searched for shoes , called x ray, and no shoes were located. PAtient and patient's sister instructed to look at home for shoes and call if they were not located.Reinaldo called and stated patient did not come in with shoes. Patient discharged home with sister. Transferred from wheelchair to vehicle with contact toni.
== END 2020-02-18 15:35 | disposition home or self-care (01) ==
PROVIDERS: Emergency Provider Physician Assistant; PCP Family Medicine
DX: R42 Dizziness and giddiness (principal); R51.9 Headache, unspecified; G89.29 Other chronic pain; J44.9 Chronic obstructive pulmonary disease, unspecified; E11.9 Type 2 diabetes mellitus without complications; I10 Essential (primary) hypertension
CPT/HCPCS: 36415; 80053; 93005; 96361; 96374; 99285; 70450; 71046; 81003; 81015; 83735; 84439; 84443; 84484; 85025; 87086; 93010; J0131

== ENCOUNTER 2020-02-23 16:36 | Outpatient (REF) | payer OTHER, MEDICAID, SELFPAY ==
[2020-02-23 15:35] LABS: Anion Gap 6.5 mmol/L (3-11); BUN 27 mg/dL (7-18); CO2 26.5 mmol/L (21.0-32.0); CREATININE 1.54 mg/dL (0.70-1.30); Calcium 8.6 mg/dL (8.5-10.1); Chloride 104 mmol/L (98-107); Estimated GFR 45.28 (mL/min/1.73m2); Glucose 234 mg/dL (74-106); Magnesium 1.3 mg/dL (1.8-2.4); Potassium 4.7 mmol/L (3.5-5.1); Sodium 137 mmol/L (136-145)
== END 2020-02-23 16:56 ==
LOC: NCHCN 16:36
PROVIDERS: PCP Family Medicine; Visit Provider Family Medicine
DX: E87.6 Hypokalemia (principal); E83.42 Hypomagnesemia; N17.9 Acute kidney failure, unspecified
CPT/HCPCS: 80048; 83735

== ENCOUNTER 2020-03-01 09:25 | Emergency (ER) | payer OTHER, MEDICAID, SELFPAY ==
[2020-03-01] VITALS (17 sets, daily range): BP systolic 128–150; BP diastolic 62–77; PULSE 70–77; RESP 11–23; TEMP 36.3–36.6; O2SAT 94–100
--- NOTE | 2020-03-01 09:30 | RT.EKG_ITS ---
APPROVED REPORT Exam: Resting ECG Patient Location: E HR:69 bpm ECG Measurements Heart Rate 69 AXIS [place] 181 P 65 QRSd 151 QRS -35 QT 465 T 100 QTc 499 Conclusion Sinus rhythm...normal P axis, V-rate 60- 99 Ventricular premature complex...V complex w/ short R-R interval Right bundle branch block...QRSd>120, terminal axis(90,270) Inferior infarct, old...Q >35mS, II III aVF sinus rhythm at 69, left axis, inf q waves, RBBB, occ PVC, no STEMI, non-diagnostic EKG
[2020-03-01] MEDS: Normal Saline Flush 10 ML SYR IVP (09:35)
--- NOTE | 2020-03-01 09:41 | ED.GENADUL_ITS ---
Discharge Plan Disposition Patient Disposition: HOME Condition: Stable Discharge Details Clinical Impression: Abdominal pain, Hypomagnesemia Primary Care Provider: Abdullahi Gilliland ED Provider: Amparo Barboza Home Meds and New Rx's Prescriptions: Continued mirtazapine 15 mg tablet 15 mg PO DAILY RF: 0 ProAir RespiClick 90 MCG aerosol powdr breath activated 90 mcg Inhalation Q4H PRN PRNRF: 0 ketorolac 0.4 % drops 1 drp OP QID RF: 0 (DME) nebulizers Misc See Rx Instructions .ROUTE .MEDSUPPLY Qty: 1 RF: 0 (DME) oxygen-air delivery systems Device See Rx Instructions .ROUTE .MEDSUPPLY Qty: 1 RF: 0 ezetimibe [Zetia] 10 MG tablet 10 mg PO QAM RF: 0 isosorbide mononitrate 120 MG tablet extended release 24 hr 120 mg PO QAM RF: 0 atorvastatin [Lipitor] 80 MG tablet 80 mg PO HS RF: 0 ropinirole 2 MG tablet 2 mg PO HS RF: 0 multivitamin [Daily Multi-Vitamin] 1 EACH tablet 1 tab PO QAM RF: 0 tamsulosin 0.4 mg Capsule 0.4 mg PO DAILY RF: 0 omeprazole 20 MG capsule,delayed release(DR/EC) 40 mg PO DAILY RF: 0 aspirin 81 mg Tablet,Delayed Release (Dr/Ec) 81 mg PO DAILY Qty: 0 RF: 0 ferrous sulfate 325 mg (65 mg iron) Tablet 325 mg PO BID Qty: 0 RF: 0 Eliquis 5 mg Tablet 5 mg PO BID Qty: 60 RF: 0 metoprolol succinate 100 MG tablet extended release 24 hr 150 mg PO DAILY Qty: 45 RF: 0 furosemide [Lasix] 20 mg tablet 20 mg PO QAM Qty: 4 RF: 0 gabapentin 300 mg Capsule 400 mg PO HS RF: 0 polyethylene glycol 3350 [Miralax] 17 gram Powder In Packet 17 g PO DAILY RF: 0 nitroglycerin [Nitrostat] 0.4 mg Tablet, Sublingual 0.4 mg sublingual PRN PRNRF: 0 fluoxetine 20 mg Capsule 20 mg PO DAILY RF: 0 fluticasone propionate [Flonase Allergy Relief] 50 mcg/actuation Mclaughlin,Suspension 2 spray INTRANASAL DAILY RF: 0 budesonide-formoterol [Symbicort] 80-4.5 mcg/actuation Hfa Aerosol Inhaler 2 puff INHALATION BID RF: 0 levothyroxine 150 mcg tablet 150 mcg PO DAILY RF: 0 clotrimazole 1 % cream 1 applic TOPICAL DIRECTED PRNRF: 0 cholecalciferol (vitamin D3) 25 mcg (1,000 unit) tablet 1,000 unit PO DAILY RF: 0 metformin 500 mg tablet extended release 24 hr 500 mg PO DAILY RF: 0 lisinopril 2.5 mg tablet 2.5 mg PO DAILY RF: 0 Trulicity 1.5 mg/0.5 mL pen injector 1.5 mg SUBCUT DIRECTED RF: 0 Levemir FlexTouch U-100 Insuln 100 unit/mL (3 mL) insulin pen 28 unit SC DAILY RF: 0 potassium chloride [Klor-Con M20] 20 mEq Tablet,Er Particles/Crystals 20 meq PO BID Qty: 60 RF: 0 Slow-Mag 71.5 mg Tablet,Delayed Release (Dr/Ec) 71.5 mg PO BID Qty: 0 RF: 0 Discharge Instructions Instructions: Abdominal Pain (ED), Hypomagnesemia (ED) Additional Instructions: Follow up with primary care provider in 3-5 days. Return to ED sooner if any worsening or concerns. Increase oral fluids. Referrals: Abdullahi Gilliland [Primary Care Provider] - Discharge Data Discharge Date/Time-TO BE ENTERED AT DEPARTURE: 03/01/20 12:06 Medical Decision Making 69-year-old male presents to the ED via EMS with mid periumbilical abdominal pain which began a couple of days ago. This pain is associated with decreased appetite. He describes it as being upset he denies any current nausea vomiting diarrhea. No radiation of pain. He denies any chest pain or shortness of breath. He was given Zofran and 1 L of normal saline placed prior to arrival. He does have a past medical history of pacemaker, aortic valve replacement, coronary stent, CABG, hypothyroidism, hypertension, diabetes, CVA, COPD. EKG was reviewed by Estee Peterson MD ER attending, please see her official report. Normal sinus rhythm, paced rhythm with right bundle branch block no change from previous EKG noted. At this time work-up ordered including CBC, CMP, magnesium, lipase, urinalysis and CT abdomen pelvis. Discussed plan of care CT abdomen pelvis negative for anything acute. Labs are largely at baseline. No leukocytosis or elevated white blood cell count, BUN is 25 creatinine is 1.79 which is slightly elevated from his previous. He was able to reviewed. Glucose 38, glucose of 290, magnesium is 1.4, will give him 1 g of magnesium here in department. a CT:CT abdomen & pelvis w EXAM: CT ABDOMEN PELVIS W CLINICAL HISTORY: Abdominal pain TECHNIQUE: Imaging Protocol: Axial computed tomography images with coronal and sagittal reformatted images were created and reviewed CONTRAST MATERIAL: Intravenous: Omnipaque 350 Contrast volume:100 mL Oral: No COMPARISON: CT CT RENAL COLIC WO from 02/14/2020 US US RENAL from 02/17/2020 FINDINGS: ABDOMEN: Lung Bases: Normal where visualized. Liver: Diffuse decreased attenuation of the liver consistent with fatty infiltration. No measurable mass. Portal, Superior Mesenteric, and Splenic Veins: Unremarkable. Gallbladder and Biliary Tract: No radiodense calculus or dilation. Pancreas: Normal density, no abnormal calcifications or inflammatory process. Spleen: Normal. Adrenals: No masses seen. Kidneys: Normal size, contour and axis. No radiodense stones or obstructive uropathy. There again seen bilateral renal cysts. The hypodense lesion seen at the posterior aspect of the of the right kidney is again noted and appears to be contiguous with the previously measured central parapelvic cyst. Abdominal Aorta: Abdominal portion non-dilated. Atherosclerosis. Bowel: No obstruction or bowel wall thickening. No evidence of appendicitis. Peritoneal Cavity: No ascites, collection or mesenteric inflammatory response. Lymph Nodes: Within normal limits. Bones: Degenerative changes are seen in the spine Soft Tissues: Small fat containing umbilical hernia. PELVIS: Bladder: Symmetric distention, no gross wall thickening. Reproductive Organs: Unremarkable as visualized. Lymph Nodes: Within normal limits. Bones: Within normal limits. IMPRESSION: 1. No acute abdominal or pelvic process. 2. Hypodense lesion seen in the posterior aspect of the right kidney appears to be contiguous with the previously measured central parapelvic cyst. An MRI of the kidneys should be considered for further evaluation and to exclude a solid mass. 3. Findings were discussed with the emergency department on the date of the examination Discussed results with patient who verbalized understanding. At this time findings are largely at patient's baseline. He does have home health that comes into the home discussed home care with his sister who verbalizes understanding, she is willing to come and pick him up from the hospital. Patient has remained alert and oriented hemodynamically stable throughout stay. This text was generated using [employer] system, please disregard any oddities of phrase or misspellings. HPI General Mode of arrival: EMS . Date/Time Provider Initiated Documentation: 03/01/20 09:30 . Limitations to Documentation: no limitations . Information obtained by: patient and EMS . HPI Narrative: 69-year-old male presents to the ED via EMS with mid periumbilical abdominal pain which began a couple of days ago. This pain is associated with decreased appetite. He describes it as being upset he denies any current nausea vomiting diarrhea. No radiation of pain. He denies any chest pain or shortness of breath. He was given Zofran and 1 L of normal saline placed prior to arrival. He does have a past medical history of pacemaker, aortic valve replacement, coronary stent, CABG, hypothyroidism, hypertension, diabetes, CVA, COPD. Related Data Home Medications Medication Instructions Recorded Confirmed atorvastatin [Lipitor] 80 mg PO HS 01/05/14 03/01/20 ezetimibe [Zetia] 10 mg PO QAM 01/05/14 03/01/20 isosorbide mononitrate 120 mg PO QAM 01/05/14 03/01/20 multivitamin [Daily Multi-Vitamin] 1 tab PO QAM 01/05/14 03/01/20 ropinirole 2 mg PO HS 01/05/14 03/01/20 ProAir RespiClick 90 mcg INHALATION Q4H PRN PRN 07/10/17 03/01/20 mirtazapine 15 mg tablet 15 mg PO DAILY 07/23/18 03/01/20 gabapentin 400 mg PO HS 10/04/18 03/01/20 ketorolac 0.4 % eye drops 1 drp OP QID 04/01/19 03/01/20 nebulizers #1 each 04/01/19 03/01/20 oxygen-air delivery systems #1 04/01/19 03/01/20 fluoxetine 20 mg PO DAILY 05/29/19 03/01/20 nitroglycerin [Nitrostat] 0.4 mg SUBLINGUAL PRN PRN 05/29/19 03/01/20 polyethylene glycol 3350 [Miralax] 17 g PO DAILY 05/29/19 03/01/20 tamsulosin 0.4 mg PO DAILY 07/18/19 03/01/20 budesonide-formoterol [Symbicort] 2 puff INHALATION BID 09/02/19 03/01/20 fluticasone propionate [Flonase 2 spray INTRANASAL DAILY 09/02/19 03/01/20 Allergy Relief] omeprazole 40 mg PO DAILY 09/03/19 03/01/20 aspirin 81 mg PO DAILY #0 tab 09/09/19 03/01/20 ferrous sulfate 325 mg PO BID #0 tab 09/09/19 03/01/20 Eliquis 5 mg PO BID #60 tab 11/11/19 03/01/20 metoprolol succinate 150 mg PO DAILY #45 tab 11/11/19 03/01/20 furosemide [Lasix] 20 mg PO QAM #4 tab 12/08/19 03/01/20 Levemir FlexTouch U-100 Insuln 28 unit SC DAILY 01/31/20 03/01/20 Trulicity 1.5 mg SUBCUT DIRECTED 01/31/20 03/01/20 cholecalciferol (vitamin D3) 1,000 unit PO DAILY 01/31/20 03/01/20 clotrimazole 1 applic TOPICAL DIRECTED PRN 01/31/20 03/01/20 levothyroxine 150 mcg PO DAILY 01/31/20 03/01/20 lisinopril 2.5 mg PO DAILY 01/31/20 03/01/20 metformin 500 mg PO DAILY 01/31/20 03/01/20 Slow-Mag 71.5 mg PO BID #0 tab 02/17/20 03/01/20 potassium chloride [Klor-Con M20] 20 meq PO BID #60 tab 02/17/20 03/01/20 Previous Rx's Medication Instructions Recorded aspirin 81 mg PO DAILY #0 tab 09/09/19 ferrous sulfate 325 mg PO BID #0 tab 09/09/19 Eliquis 5 mg PO BID #60 tab 11/11/19 metoprolol succinate 150 mg PO DAILY #45 tab 11/11/19 furosemide [Lasix] 20 mg PO QAM #4 tab 12/08/19 Slow-Mag 71.5 mg PO BID #0 tab 02/17/20 potassium chloride [Klor-Con M20] 20 meq PO BID #60 tab 02/17/20 Allergies Allergy/AdvReac Type Severity Reaction Status Date / Time No Known Allergies Allergy Verified 03/01/20 09:43 General Stated Complaint: Abd Prob DAYLIN: 3 Review of Systems Narrative: Constitutional: Negative for weight loss, alert and oriented, well groomed, normal body habitus, appears comfortable. HEENT: Denies trauma, headaches, blurry vision, nasal discharge, sore throat, trouble swallowing. Chest: Denies chest pain, palpitations, irregular rhythm, hypertension. Respiratory: Denies Shortness of breath, cough, hemoptysis. GI: Denies nausea, vomiting, diarrhea, constipation. Reports mid periumbilical abdominal pain for the last couple of days. : Denies dysuria, hematuria, flank pain, rectal bleeding. Neuro: Denies dizziness, blurry vision, weakness, syncope, headache or facial numbness. Hematologic: Denies easy bruising, intolerance to heat or cold, hair loss. [facility] Medical History Anxiety with depression Aortic valve replaced Back pain CAD (coronary artery disease) COPD (chronic obstructive pulmonary disease) CVA (cerebral vascular accident) Diabetic neuropathy DM (diabetes mellitus) GERD (gastroesophageal reflux disease) H/O: HTN (hypertension) Hematuria HFrEF (heart failure with reduced ejection fraction) History of bloody stools HTN (hypertension) Hx of fall Hyperlipidemia Hypothyroidism Hypothyroidism (acquired) Insomnia Memory impairment Obesity IVETTE (obstructive sleep apnea) IVETTE on CPAP Pacemaker Paroxysmal atrial fibrillation Passive suicidal ideations Perforated tympanic membrane Polypharmacy Proteinuria Rash, skin Renal insufficiency Sick sinus syndrome Sinus node dysfunction Tinea cruris Surgical History Coronary Artery Bypass Gaft (CABG) Coronary Stent CABGx4 H/O carotid endarterectomy Pacemaker Replacement of aortic valve Family History Other Cancer Heart disease Social History Smoking/Tobacco Use Status: Never Smoking risk assessment performed?: Yes Alcohol Intake: former Drug use: Never Substance use type: does not use Details: Pt reports no alcohol since his heart attack 1995 Household members: none Housing: other Details: [facility] Number of Children: 2 current occupation: Lives at [facility]. Disabled since . Seatbelt use: always Do you feel safe in your relationship?: Yes Additional Social history: lives alone, area on [facility] comes in to assiste pt. Reports safety issue regarding leg giving out. Exam Narrative Exam Narrative: Constitutional: Alert and oriented x3. Appears stated age. Normal body habitus. Head: Normocephalic, no trauma. Eyes: Pupils PERRLA, Red reflex noted, EOM's intact. Eyelids symmetrical without lesions, discharge, or swelling. ENT: Bilateral TM's WNL, External ear normal to inspection, no mastoid TTP, swelling, or erythema, Nasal turbinates WNL, no nasal discharge. Normal dentition, Posterior pharynx WNL, no exudate. Chest: RRR, Normal S1, S2, distal pulses intact. Resp: Lungs clear to auscultation bilaterally, no wheezes, rales, or rhonchi. Abdomen: Soft, nondistended nontender to palpation. Musculoskeletal: Normal gait, 5/5 strength to all four extremities. Skin: No suspicious rashes or lesions. Capillary refill less than 2 sec. Neurologic: Cranial nerves II-XII intact. Alert and oriented x 3. DTR's intact. Hematologic/Lymphatic: No ecchymosis, no lymphadenopathy. Course Vital Signs Vital signs: Vital Signs Temperature 36.6 C 03/01/20 09:27 Pulse 71 03/01/20 09:27 Respiratory Rate 18 03/01/20 09:27 Blood Pressure 133/67 03/01/20 09:27 Pulse Oximetry 99 03/01/20 09:27 Temperature 36.6 C 03/01/20 09:27 Pulse 71 03/01/20 09:27 Respiratory Rate 18 03/01/20 09:27 Respiratory Effort 03/01/20 09:34 Blood Pressure 133/67 03/01/20 09:27 Blood Pressure Position Supine 03/01/20 09:27 Pulse Oximetry 99 03/01/20 09:27 Oxygen Delivery Method Room Air 03/01/20 09:27 Oxygen Flow Rate 0 03/01/20 09:27 Pain Level 8 03/01/20 09:27
--- NOTE | 2020-03-01 09:44 | NUR.NOTE ---
Nursing Note: medication reconciled with discharge med list from last visit in February. Pt states home health assists him with medications and they go by this list. Agrees with recent fills.
[2020-03-01 09:51] LABS: Abs Immature Grans 0.01 10^3/uL (0.0-0.06); Absolute Basophil Count 0.06 10^3/uL (0.0-0.2); Absolute Lymphocyte Count 1.81 10^3/uL (1.2-3.4); Absolute Neutrophil Count 3.65 10^3/uL (1.2-6.7); Basophils % 0.9; Eosinophils % 1.6; HCT 38.9 % (40.0-50.0); HGB 13.2 g/dL (13.5-17.5); Immature Grans % 0.2; Lymphocytes % 28.6; MCH 29.6 pg (27.0-33.0); MCHC 33.9 % (32.0-36.0); MCV 87.2 fL (80-95); MPV 9.9 fL (8.0-11.0); Monocytes % 11.1; Neutrophils % 57.6; Nucleated RBC 0 %; Platelet Count 209 10^3/uL (130-400); RBC 4.46 10^6/uL (4.36-5.78); RDW 14.8 % (11.8-14.1); RDW-SD 47.4 fL; WBC 6.33 10^3/uL (4.4-10.8)
[2020-03-01 10:02] LABS: ALT 24 U/L (16-63); AST 19 U/L (15-37); Albumin 2.9 g/dL (3.4-5.0); Alkaline Phosphatase 98 U/L (46-116); BUN 25 mg/dL (7-18); Bilirubin, Total 2.4 mg/dL (0.2-1.0); CREATININE 1.79 mg/dL (0.70-1.30); Calcium 9.2 mg/dL (8.5-10.1); Chloride 100 mmol/L (98-107); Estimated GFR 38.07 (mL/min/1.73m2); Glucose 290 mg/dL (74-106); Lipase 63 U/L (73-393); Magnesium 1.4 mg/dL (1.8-2.4); Potassium 4.2 mmol/L (3.5-5.1); Sodium 136 mmol/L (136-145); Total Protein 7.1 g/dL (6.4-8.2)
[2020-03-01] MEDS: Normal Saline 1,000 ML 150 ML IV (10:15)
[2020-03-01] MEDS: MAGNESIUM SULFATE 1 GM/100 ML BAG IVPB (10:24)
--- NOTE | 2020-03-01 10:48 | DI.CT_ITS ---
EXAM: CT ABDOMEN PELVIS W CLINICAL HISTORY: Abdominal pain TECHNIQUE: Imaging Protocol: Axial computed tomography images with coronal and sagittal reformatted images were created and reviewed CONTRAST MATERIAL: Intravenous: Omnipaque 350 Contrast volume:100 mL Oral: No COMPARISON: CT CT RENAL COLIC WO from 02/14/2020 US US RENAL from 02/17/2020 FINDINGS: ABDOMEN: Lung Bases: Normal where visualized. Liver: Diffuse decreased attenuation of the liver consistent with fatty infiltration. No measurable mass. Portal, Superior Mesenteric, and Splenic Veins: Unremarkable. Gallbladder and Biliary Tract: No radiodense calculus or dilation. Pancreas: Normal density, no abnormal calcifications or inflammatory process. Spleen: Normal. Adrenals: No masses seen. Kidneys: Normal size, contour and axis. No radiodense stones or obstructive uropathy. There again see n bilateral renal cysts. The hypodense lesion seen at the posterior aspect of the of the right kidne y is again noted and appears to be contiguous with the previously measured central parapelvic cyst. Abdominal Aorta: Abdominal portion non-dilated. Atherosclerosis. Bowel: No obstruction or bowel wall thickening. No evidence of appendicitis. Peritoneal Cavity: No ascites, collection or mesenteric inflammatory response. Lymph Nodes: Within normal limits. Bones: Degenerative changes are seen in the spine Soft Tissues: Small fat containing umbilical hernia. PELVIS: Bladder: Symmetric distention, no gross wall thickening. Reproductive Organs: Unremarkable as visualized. Lymph Nodes: Within normal limits. Bones: Within normal limits. IMPRESSION: 1. No acute abdominal or pelvic process. 2. Hypodense lesion seen in the posterior aspect of the right kidney appears to be contiguous with th e previously measured central parapelvic cyst. An MRI of the kidneys should be considered for furthe r evaluation and to exclude a solid mass. 3. Findings were discussed with the emergency department on the date of the examination. RADIATION DOSE DELIVERED: 1,452.42mGy.cm Total DLP DATA REPOSITORY: All CT scans at this facility are submitted to the National Radiology Data Registry (NRDR) Dose Index Registry (DIR) with the [employer] (ACR). RADIATION OPTIMIZATION: All CT scans at this facility use at least one of these dose optimization te chniques: automated exposure control; mA and/or kV adjustment per patient size (includes targeted exa ms where dose is matched to clinical indication); or iterative reconstruction.
[2020-03-01] MEDS: Normal Saline - Diluent 50 ML VIAL IV (10:50)
[2020-03-01] MEDS: Omnipaque 350 MG/ML 100 ML BTL IJ (10:51)
[2020-03-01 11:28] LABS: Bilirubin Small (Negative); Blood Small (Negative); Clarity Clear (Clear); Glucose 100 mg/dL (Negative); Ketones Negative (Negative); Leukocyte Esterase Negative (Negative); Nitrite Negative (Negative); Specific Gravity 1.025 (1.005-1.025); pH 5.5 (5-8)
[2020-03-01 11:33] LABS: Bacteria Moderate HPF (Negative); Crystals Moderate Amorphous HPF (Negative); Epithelial Cells Rare HPF (Negative); Mucus Heavy (Negative)
[2020-03-01 11:36] LABS: C & S Indicated? Yes
== END 2020-03-01 12:06 | disposition home or self-care (01) ==
PROVIDERS: Emergency Provider Registered Nurse Emergency; PCP Family Medicine
DX: E83.42 Hypomagnesemia (principal); R10.33 Periumbilical pain; I12.9 Hypertensive chronic kidney disease with stage 1 through stage 4 chronic kidney disease, or unspecified chronic kidney disease; N18.9 Chronic kidney disease, unspecified; E11.65 Type 2 diabetes mellitus with hyperglycemia; Z79.4 Long term (current) use of insulin; J44.9 Chronic obstructive pulmonary disease, unspecified; E11.22 Type 2 diabetes mellitus with diabetic chronic kidney disease
CPT/HCPCS: 36415; 80053; 83690; 93005; 96361; 96365; 99285; 74177; 81003; 81015; 83735; 85025; 87086; 93010; J3475; J3490

== ENCOUNTER 2020-03-02 17:24 | Emergency (ER) | payer OTHER, MEDICAID, SELFPAY ==
[2020-03-02] VITALS (38 sets, daily range): BP systolic 115–163; BP diastolic 60–92; PULSE 78–94; RESP 14–25; TEMP 36.9; O2SAT 93–99
--- NOTE | 2020-03-02 17:30 | RT.EKG_ITS ---
APPROVED REPORT Exam: Resting ECG Patient Location: E HR:86 bpm ECG Measurements Heart Rate 86 AXIS SC 174 P 83 QRSd 141 QRS -50 QT 431 T 80 QTc 515 Conclusion Sinus rhythm...normal P axis, V-rate 60- 99 Right bundle branch block...QRSd>120, terminal axis(90,270) Inferolateral infarct, old...Q >40mS, inf-lat leads
[2020-03-02 17:55] LABS: Abs Immature Grans 0.03 10^3/uL (0.0-0.06); Absolute Basophil Count 0.05 10^3/uL (0.0-0.2); Absolute Eosinophil Count 0.04 10^3/uL (0.0-0.7); Absolute Lymphocyte Count 1.57 10^3/uL (1.2-3.4); Absolute Monocyte Count 0.76 10^3/uL (0.1-0.8); Absolute Neutrophil Count 6.01 10^3/uL (1.2-6.7); Basophils % 0.6; Eosinophils % 0.5; HCT 42.3 % (40.0-50.0); HGB 14.1 g/dL (13.5-17.5); Immature Grans % 0.4; Lymphocytes % 18.6; MCH 29.3 pg (27.0-33.0); MCHC 33.3 % (32.0-36.0); MCV 87.9 fL (80-95); MPV 9.4 fL (8.0-11.0); Neutrophils % 70.9; Nucleated RBC 0 %; Platelet Count 226 10^3/uL (130-400); RBC 4.81 10^6/uL (4.36-5.78); RDW 14.6 % (11.8-14.1); RDW-SD 47.2 fL; WBC 8.46 10^3/uL (4.4-10.8)
--- NOTE | 2020-03-02 18:00 | ED.GENADUL_ITS ---
Discharge Plan Disposition Patient Disposition: HOME Condition: Stable Discharge Details Clinical Impression: Hypomagnesemia, Nausea & vomiting Primary Care Provider: Abdullahi Gilliland ED Provider: Amparo Barboza Home Meds and New Rx's Prescriptions: New ondansetron HCl [Zofran] 4 mg tablet 4 mg PO Q8H PRN (Reason: nausea and vomiting) Qty: 10 RF: 0 No Action mirtazapine 15 mg tablet 15 mg PO DAILY RF: 0 ProAir RespiClick 90 MCG aerosol powdr breath activated 90 mcg Inhalation Q4H PRN PRNRF: 0 ketorolac 0.4 % drops 1 drp OP QID RF: 0 (DME) nebulizers Misc See Rx Instructions .ROUTE .MEDSUPPLY Qty: 1 RF: 0 (DME) oxygen-air delivery systems Device See Rx Instructions .ROUTE .MEDSUPPLY Qty: 1 RF: 0 ezetimibe [Zetia] 10 MG tablet 10 mg PO QAM RF: 0 isosorbide mononitrate 120 MG tablet extended release 24 hr 120 mg PO QAM RF: 0 atorvastatin [Lipitor] 80 MG tablet 80 mg PO HS RF: 0 ropinirole 2 MG tablet 2 mg PO HS RF: 0 multivitamin [Daily Multi-Vitamin] 1 EACH tablet 1 tab PO QAM RF: 0 tamsulosin 0.4 mg Capsule 0.4 mg PO DAILY RF: 0 omeprazole 20 MG capsule,delayed release(DR/EC) 40 mg PO DAILY RF: 0 aspirin 81 mg Tablet,Delayed Release (Dr/Ec) 81 mg PO DAILY Qty: 0 RF: 0 ferrous sulfate 325 mg (65 mg iron) Tablet 325 mg PO BID Qty: 0 RF: 0 Eliquis 5 mg Tablet 5 mg PO BID Qty: 60 RF: 0 metoprolol succinate 100 MG tablet extended release 24 hr 150 mg PO DAILY Qty: 45 RF: 0 furosemide [Lasix] 20 mg tablet 20 mg PO QAM Qty: 4 RF: 0 gabapentin 300 mg Capsule 400 mg PO HS RF: 0 polyethylene glycol 3350 [Miralax] 17 gram Powder In Packet 17 g PO DAILY RF: 0 nitroglycerin [Nitrostat] 0.4 mg Tablet, Sublingual 0.4 mg sublingual PRN PRNRF: 0 fluoxetine 20 mg Capsule 20 mg PO DAILY RF: 0 fluticasone propionate [Flonase Allergy Relief] 50 mcg/actuation [place],Suspension 2 spray INTRANASAL DAILY RF: 0 budesonide-formoterol [Symbicort] 80-4.5 mcg/actuation Hfa Aerosol Inhaler 2 puff INHALATION BID RF: 0 levothyroxine 150 mcg tablet 150 mcg PO HS RF: 0 clotrimazole 1 % cream 1 applic TOPICAL DIRECTED PRNRF: 0 cholecalciferol (vitamin D3) 25 mcg (1,000 unit) tablet 1,000 unit PO DAILY RF: 0 metformin 500 mg tablet extended release 24 hr 500 mg PO DAILY RF: 0 lisinopril 2.5 mg tablet 2.5 mg PO DAILY RF: 0 Trulicity 1.5 mg/0.5 mL pen injector 1.5 mg SUBCUT DAILY AM RF: 0 Levemir FlexTouch U-100 Insuln 100 unit/mL (3 mL) insulin pen 28 unit SC HS RF: 0 potassium chloride [Klor-Con M20] 20 mEq Tablet,Er Particles/Crystals 20 meq PO BID Qty: 60 RF: 0 Slow-Mag 71.5 mg Tablet,Delayed Release (Dr/Ec) 71.5 mg PO BID Qty: 0 RF: 0 Discharge Instructions Instructions: Acute Nausea and Vomiting (ED), Hypomagnesemia (ED) Additional Instructions: Follow up with primary care provider in 3-5 days. Return to ED sooner if any worsening or concerns. Increase oral fluids. Take nausea medication 3 times a day as needed for nausea. We will have care management follow-up with you to discuss possibly having home health come out to the house will bit more often than 1 time a week to help with activities of daily living. They should contact you for follow-up. Referrals: Abdullahi Gilliland [Primary Care Provider] - Discharge Data Discharge Date/Time-TO BE ENTERED AT DEPARTURE: 03/02/20 21:15 Medical Decision Making 59-year-old male presents to the ED for the second day in a row with chief complaint of nausea vomiting. He did vomit one time at 7:00 this morning he reports green bilious material. He did eat some [employer] [place] fries around 1500 today. No further vomiting reported. Denies any diarrhea. Denies any chest pain or shortness of breath. He reports continued abdominal discomfort and reports abdomen being upset. Abdomen is soft and nontender with palpation. He does report decreased appetite. Did have a CT abdomen pelvis with IV contrast yesterday which was unremarkable. She was given Zofran 4 mg ODT prior to arrival by EMS. EKG was reviewed by Drake Vasquez MD ER attending, please see his official report, right bundle branch block no change from previous EKGs. Differential diagnosis includes but not limited to gastroenteritis, failure to thrive, Magnesium is 1.5, yesterday was 1.4 , we will give another gram of magnesium IV piggyback here in department. 2015: Discussed plan of care with patient he states that his sister and his granddaughter do help take care of him. He is tolerating p.o. here in department is able to take small sips of water without any vomiting. He is requesting for someone to look at his CPAP he states to warm so he has been able to sleep. Respiratory therapy called and they will come evaluate the CPAP machine. At this time he does prefer to be discharged home. This time he is alert and oriented x4 and is able to make his own decisions. I will refer care management to follow-up to look into possibly getting increased help in the home. At this time he states home health comes once a week. HPI General Mode of arrival: EMS . Date/Time Provider Initiated Documentation: 03/02/20 17:31 . Limitations to Documentation: no limitations . Information obtained by: patient and EMS . HPI Narrative: 59-year-old male p resents to the ED for the second day in a row with chief complaint of nausea vomiting. He did vomit one time at 7:00 this morning he reports green bilious material. He did eat some [employer] [place] fries around 1500 today. No further vomiting reported. Denies any diarrhea. Denies any chest pain or shortness of breath. He reports continued abdominal discomfort and reports abdomen being upset. Abdomen is soft and nontender with palpation. He does report decreased appetite. Did have a CT abdomen pelvis with IV contrast yesterday which was unremarkable. She was given Zofran 4 mg ODT prior to arrival by EMS. Related Data Home Medications Medication Instructions Recorded Confirmed atorvastatin [Lipitor] 80 mg PO HS 01/05/14 03/02/20 ezetimibe [Zetia] 10 mg PO QAM 01/05/14 03/02/20 isosorbide mononitrate 120 mg PO QAM 01/05/14 03/02/20 multivitamin [Daily Multi-Vitamin] 1 tab PO QAM 01/05/14 03/02/20 ropinirole 2 mg PO HS 01/05/14 03/02/20 ProAir RespiClick 90 mcg INHALATION Q4H PRN PRN 07/10/17 03/02/20 mirtazapine 15 mg tablet 15 mg PO DAILY 07/23/18 03/02/20 gabapentin 400 mg PO HS 10/04/18 03/02/20 ketorolac 0.4 % eye drops 1 drp OP QID 04/01/19 03/02/20 nebulizers #1 each 04/01/19 03/01/20 oxygen-air delivery systems #1 04/01/19 03/01/20 fluoxetine 20 mg PO DAILY 05/29/19 03/02/20 nitroglycerin [Nitrostat] 0.4 mg SUBLINGUAL PRN PRN 05/29/19 03/02/20 polyethylene glycol 3350 [Miralax] 17 g PO DAILY 05/29/19 03/02/20 tamsulosin 0.4 mg PO DAILY 07/18/19 03/02/20 budesonide-formoterol [Symbicort] 2 puff INHALATION BID 09/02/19 03/02/20 fluticasone propionate [Flonase 2 spray INTRANASAL DAILY 09/02/19 03/02/20 Allergy Relief] omeprazole 40 mg PO DAILY 09/03/19 03/02/20 aspirin 81 mg PO DAILY #0 tab 09/09/19 03/02/20 ferrous sulfate 325 mg PO BID #0 tab 09/09/19 03/02/20 Eliquis 5 mg PO BID #60 tab 11/11/19 03/02/20 metoprolol succinate 150 mg PO DAILY #45 tab 11/11/19 03/02/20 furosemide [Lasix] 20 mg PO QAM #4 tab 12/08/19 03/02/20 Levemir FlexTouch U-100 Insuln 28 unit SC HS 01/31/20 03/02/20 Trulicity 1.5 mg SUBCUT DAILY AM 01/31/20 03/02/20 cholecalciferol (vitamin D3) 1,000 unit PO DAILY 01/31/20 03/02/20 clotrimazole 1 applic TOPICAL DIRECTED PRN 01/31/20 03/02/20 levothyroxine 150 mcg PO HS 01/31/20 03/02/20 lisinopril 2.5 mg PO DAILY 01/31/20 03/02/20 metformin 500 mg PO DAILY 01/31/20 03/02/20 Slow-Mag 71.5 mg PO BID #0 tab 02/17/20 03/02/20 potassium chloride [Klor-Con M20] 20 meq PO BID #60 tab 02/17/20 03/02/20 ondansetron HCl [Zofran] 4 mg PO Q8H PRN #10 tab 03/02/20 Previous Rx's Medication Instructions Recorded aspirin 81 mg PO DAILY #0 tab 09/09/19 ferrous sulfate 325 mg PO BID #0 tab 09/09/19 Eliquis 5 mg PO BID #60 tab 11/11/19 metoprolol succinate 150 mg PO DAILY #45 tab 11/11/19 furosemide [Lasix] 20 mg PO QAM #4 tab 12/08/19 Slow-Mag 71.5 mg PO BID #0 tab 02/17/20 potassium chloride [Klor-Con M20] 20 meq PO BID #60 tab 02/17/20 ondansetron HCl [Zofran] 4 mg PO Q8H PRN #10 tab 03/02/20 Allergies Allergy/AdvReac Type Severity Reaction Status Date / Time No Known Allergies Allergy Verified 03/02/20 17:38 General Stated Complaint: Nausea/Vomit/Diar DAYLIN: 3 Review of Systems Narrative: Constitutional: Negative for weight loss, alert and oriented, well groomed, obese body habitus, appears comfortable. HEENT: Denies trauma, headaches, blurry vision, nasal discharge, sore throat, trouble swallowing. Chest: Denies chest pain, palpitations, irregular rhythm, hypertension. Respiratory: Denies Shortness of breath, cough, hemoptysis. GI: Denies diarrhea, constipation. Positive abdominal pain, nausea vomiting. Decreased appetite. : Denies dysuria, hematuria, flank pain, rectal bleeding. Neuro: Denies dizziness, blurry vision, syncope, headache or facial numbness. Increase generalized weakness increased sleeping. Hematologic: Denies easy bruising, intolerance to heat or cold, hair loss. [facility] Medical History Anxiety with depression Aortic valve replaced Back pain CAD (coronary artery disease) COPD (chronic obstructive pulmonary disease) CVA (cerebral vascular accident) Diabetic neuropathy DM (diabetes mellitus) GERD (gastroesophageal reflux disease) H/O: HTN (hypertension) Hematuria HFrEF (heart failure with reduced ejection fraction) History of bloody stools HTN (hypertension) Hx of fall Hyperlipidemia Hypothyroidism Hypothyroidism (acquired) Insomnia Memory impairment Obesity IVETTE (obstructive sleep apnea) IVETTE on CPAP Pacemaker Paroxysmal atrial fibrillation Passive suicidal ideations Perforated tympanic membrane Polypharmacy Proteinuria Rash, skin Renal insufficiency Sick sinus syndrome Sinus node dysfunction Tinea cruris Surgical History Coronary Artery Bypass Gaft (CABG) Coronary Stent CABGx4 H/O carotid endarterectomy Pacemaker Replacement of aortic valve Family History Other Cancer Heart disease Social History Smoking/Tobacco Use Status: Never Smoking risk assessment performed?: Yes Alcohol Intake: former Drug use: Never Substance use type: does not use Details: Pt reports no alcohol since his heart attack 1995 Household members: none Housing: other Details: [facility] Number of Children: 2 current occupation: Lives at [facility]. Disabled since . Seatbelt use: always Do you feel safe at home: Yes (patient states he would feel safer with wheelchair) Do you feel safe in your relationship?: Yes Additional Social history: lives alone, area on [facility] comes in to assiste pt. Reports safety issue regarding leg giving out. Exam Narrative Exam Narrative: Constitutional: Alert and oriented x3. Appears stated age. Normal body habitus. Head: Normocephalic, no trauma. Eyes: Pupils PERRLA, Red reflex noted, EOM's intact. Eyelids symmetrical without lesions, discharge, or swelling. ENT: Bilateral TM's WNL, External ear normal to inspection, no mastoid TTP, swelling, or erythema, Nasal turbinates WNL, no nasal discharge. Normal dentition, Posterior pharynx WNL, no exudate. Chest: RRR, Normal S1, S2, distal pulses intact. Resp: Lungs clear to auscultation bilaterally, no wheezes, rales, or rhonchi. Abdomen: Soft, obese habitus, nontender to palpation. Musculoskeletal: Unable to assess gait. Moves all 4 extremities. Skin: No suspicious rashes or lesions. Capillary refill less than 2 sec. Neurologic: Cranial nerves II-XII intact. Alert and oriented x 3. DTR's intact. Hematologic/Lymphatic: No ecchymosis, no lymphadenopathy. Course Vital Signs Vital signs: Vital Signs Temperature 36.9 C 03/02/20 17:26 Pulse 94 H 03/02/20 17:26 Respiratory Rate 16 03/02/20 17:26 Blood Pressure 136/60 03/02/20 17:26 Pulse Oximetry 99 03/02/20 17:26 Temperature 36.9 C 03/02/20 17:26 Temperature Source Skin 03/02/20 17:26 Pulse 94 H 03/02/20 17:26 Respiratory Rate 16 03/02/20 17:26 Respiratory Effort Non-Labored 03/02/20 17:36 Blood Pressure 136/60 03/02/20 17:26 Blood Pressure Position Supine 03/02/20 17:26 Pulse Oximetry 99 03/02/20 17:26 Oxygen Delivery Method Room Air 03/02/20 17:26 Oxygen Flow Rate 0 03/02/20 17:26 Pain Level 8 03/02/20 17:26
[2020-03-02 18:19] LABS: Lipase 68 U/L (73-393); Magnesium 1.5 mg/dL (1.8-2.4); Troponin I < 0.05 ng/mL (<0.06)
[2020-03-02 18:30] LABS: ALT 25 U/L (16-63); AST 20 U/L (15-37); Albumin 3.1 g/dL (3.4-5.0); Alkaline Phosphatase 106 U/L (46-116); Anion Gap 10.8 mmol/L (3-11); BUN 20 mg/dL (7-18); Bilirubin, Total 2.3 mg/dL (0.2-1.0); CO2 27.2 mmol/L (21.0-32.0); CREATININE 1.88 mg/dL (0.70-1.30); Calcium 9.6 mg/dL (8.5-10.1); Chloride 98 mmol/L (98-107); Estimated GFR 35.97 (mL/min/1.73m2); Glucose 380 mg/dL (74-106); Potassium 4.1 mmol/L (3.5-5.1); Sodium 136 mmol/L (136-145); Total Protein 7.4 g/dL (6.4-8.2)
[2020-03-02] MEDS: MAGNESIUM SULFATE 1 GM/100 ML BAG IVPB (19:01)
[2020-03-02] MEDS: Normal Saline 1,000 ML 150 ML IV (19:25)
--- NOTE | 2020-03-02 20:32 | NUR.NOTE ---
Nursing Note: REFERAL COPIED AND IN CARE MANAGEMENT BOX 03/02/20
[2020-03-02] MEDS: Ondansetron O.D.T. 4 MG TABEF, 3 TABS/BTL PO (20:56)
[2020-03-02 21:13] LABS: Troponin I < 0.05 ng/mL (<0.06)
== END 2020-03-02 21:15 | disposition home or self-care (01) ==
PROVIDERS: Emergency Provider Registered Nurse Emergency; PCP Family Medicine
DX: E83.42 Hypomagnesemia (principal); R11.2 Nausea with vomiting, unspecified; E11.9 Type 2 diabetes mellitus without complications; J44.9 Chronic obstructive pulmonary disease, unspecified; I10 Essential (primary) hypertension
CPT/HCPCS: 36415; 80053; 83690; 93005; 96361; 96365; 99284; 81003; 83735; 84484; 85025; 93010; J3475

== ENCOUNTER → 2020-03-17 09:28 | Outpatient (BNVA) | payer OTHER, MEDICAID, SELFPAY | PROVIDERS: PCP Family Medicine; Referring Provider Family Medicine; Visit Provider Internal Medicine Cardiovascular Disease | DX: I49.5 Sick sinus syndrome (principal); Z45.018 Encounter for adjustment and management of other part of cardiac pacemaker | CPT/HCPCS: 93280; 99212 ==

== ENCOUNTER → 2020-03-17 11:15 | Outpatient (BNVA) | payer OTHER, MEDICAID, SELFPAY | PROVIDERS: PCP Family Medicine; Referring Provider Family Medicine; Visit Provider Nurse Practitioner Gerontology | DX: R39.9 Unspecified symptoms and signs involving the genitourinary system (principal) | CPT/HCPCS: 99213 ==

== ENCOUNTER 2020-03-20 08:18 | Emergency (ER) | payer OTHER, MEDICAID, SELFPAY ==
--- NOTE | 2020-03-20 08:12 | RT.EKG_ITS ---
APPROVED REPORT Exam: Resting ECG Patient Location: E HR:95 bpm ECG Measurements Heart Rate 95 AXIS KS 187 P 85 QRSd 151 QRS -22 QT 411 T 74 QTc 515 Conclusion Sinus rhythm.. Normal P axis Right bundle branch block - old inferior q waves - old no significant change versus 03/01/20
[2020-03-20 08:20] VITALS: BP 194/100; PULSE 97; RESP 11; TEMP 36.4
[2020-03-20] MEDS: Ondansetron 4 MG/2 ML VIAL (08:38)
--- NOTE | 2020-03-20 08:38 | NUR.NOTE ---
L knee scab present, reports he fell recently
--- NOTE | 2020-03-20 08:43 | W.ED.GENAD ---
Discharge Plan Disposition Patient Disposition: HOME Condition: Improving Discharge Details Clinical Impression: Esophagitis Primary Care Provider: Abdullahi Gilliland ED Provider: Jose Garcia Home Meds and New Rx's Prescriptions: New omeprazole 20 mg capsule,delayed release(DR/EC) 20 mg PO DAILY Qty: 30 RF: 0 Continued mirtazapine 15 mg tablet 15 mg PO DAILY RF: 0 ProAir RespiClick 90 MCG aerosol powdr breath activated 90 mcg Inhalation Q4H PRN PRNRF: 0 ketorolac 0.4 % drops 1 drp OP QID RF: 0 (DME) nebulizers Misc See Rx Instructions .ROUTE .MEDSUPPLY Qty: 1 RF: 0 (DME) oxygen-air delivery systems Device See Rx Instructions .ROUTE .MEDSUPPLY Qty: 1 RF: 0 ezetimibe [Zetia] 10 MG tablet 10 mg PO QAM RF: 0 isosorbide mononitrate 120 MG tablet extended release 24 hr 120 mg PO QAM RF: 0 atorvastatin [Lipitor] 80 MG tablet 80 mg PO HS RF: 0 ropinirole 2 MG tablet 2 mg PO HS RF: 0 multivitamin [Daily Multi-Vitamin] 1 EACH tablet 1 tab PO QAM RF: 0 tamsulosin 0.4 mg Capsule 0.4 mg PO DAILY RF: 0 omeprazole 20 MG capsule,delayed release(DR/EC) 40 mg PO DAILY RF: 0 aspirin 81 mg Tablet,Delayed Release (Dr/Ec) 81 mg PO DAILY Qty: 0 RF: 0 ferrous sulfate 325 mg (65 mg iron) Tablet 325 mg PO BID Qty: 0 RF: 0 Eliquis 5 mg Tablet 5 mg PO BID Qty: 60 RF: 0 metoprolol succinate 100 MG tablet extended release 24 hr 150 mg PO DAILY Qty: 45 RF: 0 furosemide [Lasix] 20 mg tablet 20 mg PO QAM Qty: 4 RF: 0 glipizide 5 mg tablet 5 mg PO DAILY RF: 0 metoclopramide HCl 10 mg Tablet 10 mg PO TID PRNRF: 0 gabapentin 300 mg Capsule 400 mg PO HS RF: 0 polyethylene glycol 3350 [Miralax] 17 gram Powder In Packet 17 g PO DAILY RF: 0 nitroglycerin [Nitrostat] 0.4 mg Tablet, Sublingual 0.4 mg sublingual PRN PRNRF: 0 fluoxetine 20 mg Capsule 20 mg PO DAILY RF: 0 fluticasone propionate [Flonase Allergy Relief] 50 mcg/actuation [place],Suspension 2 spray INTRANASAL DAILY RF: 0 budesonide-formoterol [Symbicort] 80-4.5 mcg/actuation Hfa Aerosol Inhaler 2 puff INHALATION BID RF: 0 levothyroxine 150 mcg tablet 150 mcg PO HS RF: 0 clotrimazole 1 % cream 1 applic TOPICAL DIRECTED PRNRF: 0 cholecalciferol (vitamin D3) 25 mcg (1,000 unit) tablet 1,000 unit PO DAILY RF: 0 metformin 500 mg tablet extended release 24 hr 500 mg PO DAILY RF: 0 lisinopril 2.5 mg tablet 2.5 mg PO DAILY RF: 0 Trulicity 1.5 mg/0.5 mL pen injector 1.5 mg SUBCUT DAILY AM RF: 0 Levemir FlexTouch U-100 Insuln 100 unit/mL (3 mL) insulin pen 30 unit SC HS RF: 0 potassium chloride [Klor-Con M20] 20 mEq Tablet,Er Particles/Crystals 20 meq PO BID Qty: 60 RF: 0 Slow-Mag 71.5 mg Tablet,Delayed Release (Dr/Ec) 71.5 mg PO BID Qty: 0 RF: 0 ondansetron HCl [Zofran] 4 mg tablet 4 mg PO Q8H PRN (Reason: nausea and vomiting) Qty: 10 RF: 0 Discharge Instructions Additional Instructions: Home to rest today. I recommend you observe a soft diet today and avoid fatty, spicy, fried or tomato-based foods. Please begin the omeprazole as prescribed daily for 1 month, next dose tomorrow We will ask care management to arrange a follow-up for you in general surgery clinic for consideration of upper endoscopy to evaluate your inflamed esophagus. We will ask care management to follow-up with your pending referrals to the [facility] in [place] You should continue your regularly prescribed medications. Medical Decision Making 69-year-old male presents from home via EMS for epigastric abdominal pain with vomiting at home to begin last evening. He has a complex past medical history including hypertension diabetes, CVA with left leg weakness, aortic valve replacement, paroxysmal atrial fibrillation. He has been awaiting placement in a [facility]. Currently lives at [facility] with community services. He uses a four-point cane and a wheeled walker. Patient vomiting upon arrival. IV access established, given Zofran, fluids initiated. Differential diagnosis includes gastritis, pancreatitis, bowel obstruction. Must exclude coronary syndrome. Patient has chronic mild renal insufficiency which is not significantly changed today, creatinine 1.7. Chronic elevation of total bilirubin again not changed and 1.6 today. AST 19, ALT 25. Troponin negative, lipase normal. CBC unremarkable. Patient given Protonix. His CT reveals mild thickening of the gastric antrum as well as a dilated upper esophagus, likely due to esophagitis/gastritis. Cannot rule out underlying neoplasia. Evidence of chronic cystitis.\ Following medications and fluids the patient felt improved. He was able to eat and stated he felt better. He requested discharge to home. Given his fairly extensive esophagitis will refer him to outpatient general surgery clinic for consideration of endoscopy. We will ask care management to follow-up about his pending referral to a [facility]. Lab Data Lab results reviewed: Yes I reviewed the patient's lab results. Labs: Laboratory Results - last 24 hr 03/20/20 03/20/20 08:14 08:14 WBC 5.88 RBC 4.91 Hgb 14.6 Hct 43.4 MCV 88.4 MCH 29.7 MCHC 33.6 RDW 14.1 Plt Count 237 MPV 10.1 Immature Gran % 0.2 Neutrophils % 60.1 Lymphocytes % 28.7 Monocytes % 9.0 Eosinophils % 1.0 Basophils % 1.0 Nucleated RBC % 0 Absolute Neutrophils 3.53 Absolute Lymphocytes 1.69 Absolute Monocytes 0.53 Absolute Eosinophils 0.06 Absolute Basophils 0.06 Sodium 135 L Potassium 3.9 Chloride 95 L Carbon Dioxide 29.2 Anion Gap 10.8 BUN 18 Creatinine 1.73 H Estimated GFR/1.73 m2 39.59 Glucose 410 H Calcium 10.2 H Magnesium 1.3 L Total Bilirubin 1.6 H AST 19 ALT 25 Alkaline Phosphatase 99 Troponin I < 0.05 Total Protein 7.7 Albumin 3.3 L Lipase 82 HPI General Mode of arrival: EMS. Date/Time Provider Initiated Documentation: 03/20/20 08:50. Limitations to Documentation: no limitations. Information obtained by: patient and EMS. History of Present Illness 69 year old M presents to the emergency department with the chief complaint of Burning epigastric pain and vomiting at home, described as moderate, Quality is described as dull, and is localized to the abdomen. Patient reports no radiation. Patient started experiencing this hour(s) and it has been intermittent. No relieving factors improve symptom(s), Eating worsens symptoms . Patient notes no other symptoms.. Patient did receive the following treatments prior to arrival, none Related Data Home Medications Medication Instructions Recorded Confirmed atorvastatin [Lipitor] 80 mg PO HS 01/05/14 03/20/20 ezetimibe [Zetia] 10 mg PO QAM 01/05/14 03/20/20 isosorbide mononitrate 120 mg PO QAM 01/05/14 03/20/20 multivitamin [Daily Multi-Vitamin] 1 tab PO QAM 01/05/14 03/20/20 ropinirole 2 mg PO HS 01/05/14 03/20/20 ProAir RespiClick 90 mcg INHALATION Q4H PRN PRN 07/10/17 03/20/20 mirtazapine 15 mg tablet 15 mg PO DAILY 07/23/18 03/20/20 gabapentin 400 mg PO HS 10/04/18 03/20/20 ketorolac 0.4 % eye drops 1 drp OP QID 04/01/19 03/20/20 nebulizers #1 each 04/01/19 03/01/20 oxygen-air delivery systems #1 04/01/19 03/01/20 fluoxetine 20 mg PO DAILY 05/29/19 03/20/20 nitroglycerin [Nitrostat] 0.4 mg SUBLINGUAL PRN PRN 05/29/19 03/20/20 polyethylene glycol 3350 [Miralax] 17 g PO DAILY 05/29/19 03/20/20 tamsulosin 0.4 mg PO DAILY 07/18/19 03/20/20 budesonide-formoterol [Symbicort] 2 puff INHALATION BID 09/02/19 03/20/20 fluticasone propionate [Flonase 2 spray INTRANASAL DAILY 09/02/19 03/20/20 Allergy Relief] omeprazole 40 mg PO DAILY 09/03/19 03/20/20 aspirin 81 mg PO DAILY #0 tab 09/09/19 03/20/20 ferrous sulfate 325 mg PO BID #0 tab 09/09/19 03/20/20 Eliquis 5 mg PO BID #60 tab 11/11/19 03/20/20 metoprolol succinate 150 mg PO DAILY #45 tab 11/11/19 03/20/20 furosemide [Lasix] 20 mg PO QAM #4 tab 12/08/19 03/20/20 Levemir FlexTouch U-100 Insuln 30 unit SC HS 01/31/20 03/20/20 Trulicity 1.5 mg SUBCUT DAILY AM 01/31/20 03/20/20 cholecalciferol (vitamin D3) 1,000 unit PO DAILY 01/31/20 03/20/20 clotrimazole 1 applic TOPICAL DIRECTED PRN 01/31/20 03/20/20 levothyroxine 150 mcg PO HS 01/31/20 03/20/20 lisinopril 2.5 mg PO DAILY 01/31/20 03/20/20 metformin 500 mg PO DAILY 01/31/20 03/20/20 Slow-Mag 71.5 mg PO BID #0 tab 02/17/20 03/20/20 potassium chloride [Klor-Con M20] 20 meq PO BID #60 tab 02/17/20 03/20/20 ondansetron HCl [Zofran] 4 mg PO Q8H PRN #10 tab 03/02/20 03/20/20 glipizide 5 mg PO DAILY 03/20/20 metoclopramide HCl 10 mg PO TID PRN 03/20/20 03/20/20 omeprazole 20 mg PO DAILY #30 cap 03/20/20 Previous Rx's Medication Instructions Recorded aspirin 81 mg PO DAILY #0 tab 09/09/19 ferrous sulfate 325 mg PO BID #0 tab 09/09/19 Eliquis 5 mg PO BID #60 tab 11/11/19 metoprolol succinate 150 mg PO DAILY #45 tab 11/11/19 furosemide [Lasix] 20 mg PO QAM #4 tab 12/08/19 Slow-Mag 71.5 mg PO BID #0 tab 02/17/20 potassium chloride [Klor-Con M20] 20 meq PO BID #60 tab 02/17/20 ondansetron HCl [Zofran] 4 mg PO Q8H PRN #10 tab 03/02/20 omeprazole 20 mg PO DAILY #30 cap 03/20/20 Allergies Allergy/AdvReac Type Severity Reaction Status Date / Time No Known Allergies Allergy Verified 03/20/20 08:26 General Stated Complaint: Chest Pain [place]: 2 Review of Systems Narrative: Vomited at home. Began having pain approximately 5 PM last night. Vomited again upon arrival. Feels like heartburn. No shortness of breath. No recent illness. No cough or fever. 8 systems reviewed and otherwise negative. Has referral for detention in [place]. [facility] Medical History Abnormal finding of kidney Anxiety with depression Aortic valve replaced Back pain CAD (coronary artery disease) COPD (chronic obstructive pulmonary disease) CVA (cerebral vascular accident) Diabetic neuropathy DM (diabetes mellitus) GERD (gastroesophageal reflux disease) H/O: HTN (hypertension) Hematuria HFrEF (heart failure with reduced ejection fraction) History of bloody stools HTN (hypertension) Hx of fall Hyperlipidemia Hypothyroidism Hypothyroidism (acquired) Insomnia Memory impairment Obesity IVETTE (obstructive sleep apnea) IVETTE on CPAP Pacemaker Paroxysmal atrial fibrillation Passive suicidal ideations Perforated tympanic membrane Polypharmacy Proteinuria Rash, skin Renal insufficiency Sick sinus syndrome Sinus node dysfunction Tinea cruris Surgical History Coronary Artery Bypass Gaft (CABG) Coronary Stent CABGx4 H/O carotid endarterectomy Pacemaker Replacement of aortic valve Family History Other Cancer Heart disease Social History Smoking/Tobacco Use Status: Never Smoking risk assessment performed?: Yes Alcohol Intake: former Drug use: Never Substance use type: does not use Details: Pt reports no alcohol since his heart attack 1995 Household members: none Housing: other Details: [facility] Number of Children: 2 current occupation: Lives at [facility]. Disabled since . Seatbelt use: always Do you feel safe at home: Yes (patient states he would feel safer with wheelchair) Do you feel safe in your relationship?: Yes Additional Social history: lives alone, area on aging comes in to assiste pt. Reports safety issue regarding leg giving out. Exam Narrative Exam Narrative: GEN: awake, alert, oriented 3. Pleasant, well groomed, interactive. HEAD: Normocephalic, atraumatic ENT: Mucous membranes moist, oropharynx unremarkable, External ear exam unremarkable EYES: PERRL, EOMI NECK: Full ROM, no STANLEY, no menigismus CHEST/RESP: Nontender, clear to auscultation bilateral, no wheeze/rhonchi/rales CARDIOVASCULAR: Borderline tachycardia approximately 100, no murmur, rub purvi. 2+ Rad pulse bilateral ABDOMEN: Soft, tender epigastrium, no significant rebound, no mass. +Bowel sounds EXT: Full ROM with left leg weakness versus right. Motor 5 out of 5 right lower extremity, 4 out of 5 left, no edema, healing abrasion left knee and left foot Neuro: Grossly normal neurologic exam, conversant, interactive. Psych: Speech fluent, thoughts congruent, affect normal Course Vital Signs Vital signs: Vital Signs Temperature 36.4 C L 03/20/20 08:20 Pulse 97 H 03/20/20 08:20 Respiratory Rate 11 L 03/20/20 08:20 Blood Pressure 194/100 H 03/20/20 08:20 Temperature 36.4 C L 03/20/20 08:20 Temperature Source Skin 03/20/20 08:20 Pulse 97 H 03/20/20 08:20 Respiratory Rate 11 L 03/20/20 08:20 Respiratory Effort Non-Labored 03/20/20 08:28 Respiratory Depth Normal 03/20/20 08:28 Respiratory Pattern Normal 03/20/20 08:28 Blood Pressure 194/100 H 03/20/20 08:20 Blood Pressure Position Supine 03/20/20 08:20 Oxygen Delivery Method Room Air 03/20/20 08:20 Oxygen Flow Rate 0 03/20/20 08:20 Pain Level 9 03/20/20 08:28
[2020-03-20 09:06] LABS: Abs Immature Grans 0.01 10^3/uL (0.0-0.06); Absolute Basophil Count 0.06 10^3/uL (0.0-0.2); Absolute Eosinophil Count 0.06 10^3/uL (0.0-0.7); Absolute Lymphocyte Count 1.69 10^3/uL (1.2-3.4); Absolute Monocyte Count 0.53 10^3/uL (0.1-0.8); Absolute Neutrophil Count 3.53 10^3/uL (1.2-6.7); HCT 43.4 % (40.0-50.0); HGB 14.6 g/dL (13.5-17.5); Immature Grans % 0.2; Lymphocytes % 28.7; MCH 29.7 pg (27.0-33.0); MCHC 33.6 % (32.0-36.0); MCV 88.4 fL (80-95); MPV 10.1 fL (8.0-11.0); Neutrophils % 60.1; Nucleated RBC 0 %; Platelet Count 237 10^3/uL (130-400); RBC 4.91 10^6/uL (4.36-5.78); RDW 14.1 % (11.8-14.1); RDW-SD 45.5 fL; WBC 5.88 10^3/uL (4.4-10.8)
[2020-03-20] MEDS: Normal Saline 1,000 ML 1000 ML IV (09:10)
--- NOTE | 2020-03-20 09:10 | NUR.NOTE ---
NS infusing in L AC
[2020-03-20 09:12] VITALS: BP 194/93; PULSE 97; RESP 14; O2SAT 97
[2020-03-20 09:22] LABS: ALT 25 U/L (16-63); AST 19 U/L (15-37); Albumin 3.3 g/dL (3.4-5.0); Alkaline Phosphatase 99 U/L (46-116); Anion Gap 10.8 mmol/L (3-11); BUN 18 mg/dL (7-18); Bilirubin, Total 1.6 mg/dL (0.2-1.0); CO2 29.2 mmol/L (21.0-32.0); CREATININE 1.73 mg/dL (0.70-1.30); Calcium 10.2 mg/dL (8.5-10.1); Chloride 95 mmol/L (98-107); Estimated GFR 39.59 (mL/min/1.73m2); Glucose 410 mg/dL (74-106); Lipase 82 U/L (73-393); Magnesium 1.3 mg/dL (1.8-2.4); Potassium 3.9 mmol/L (3.5-5.1); Sodium 135 mmol/L (136-145); Total Protein 7.7 g/dL (6.4-8.2); Troponin I < 0.05 ng/mL (<0.06)
--- NOTE | 2020-03-20 09:44 | NUR.NOTE ---
18 G L AC started x 2 attempts, flushes without difficulty
--- NOTE | 2020-03-20 09:58 | NUR.NOTE ---
voided 500mls in urinal at bedside and assisted back to bed
[2020-03-20] MEDS: Omnipaque 350 MG/ML 100 ML BTL IJ (10:06)
[2020-03-20] MEDS: Normal Saline - Diluent 50 ML VIAL IV (10:06)
[2020-03-20] MEDS: Normal Saline Flush 10 ML SYR IVP (10:07)
--- NOTE | 2020-03-20 10:10 | DI.CT_ITS ---
EXAM: CT CHEST/ABD/PEL W CLINICAL HISTORY: Epigastric pain, vomiting. GFR 39. TECHNIQUE: Imaging Protocol: Axial computed tomography images with coronal and sagittal reformatted images were created and reviewed CONTRAST MATERIAL: Intravenous: Omnipaque 350 Contrast volume:100 ml Oral: no COMPARISON: No exams were available for comparison FINDINGS: CHEST: Tracheobronchial tree: Patent where visualized. Mediastinum and Maryanne: No dominant adenopathy or fluid collection. There is wall thickening of the di stal esophagus with an edematous appearance. This could be secondary to esophagitis or neoplasm. Th e proximal esophagus is mildly dilated. Pulmonary parenchyma: No consolidation or dominant measurable mass. No architectural distortion. Pleura: No effusion or pneumothorax. Lymph nodes: Within normal limits. Aorta: Thoracic portion non-dilated. Heart: AVR. Coronary artery calcifications. Pacemaker. Bones: Sternotomy wires. Degenerative changes in the spine. ABDOMEN: Liver: Normal density. No measurable mass. Gallbladder and biliary tract: No radiodense calculus or dilation. Pancreas: Normal density, no abnormal calcifications or inflammatory process. Spleen: Normal. Kidneys: Normal size, contour and axis. No radiodense stones or obstructive uropathy. No masses seen. Bilateral cysts. Adrenal glands: No masses seen. Aorta: Abdominal portion non-dilated. Mild atherosclerotic changes. Lymph nodes: Within normal limits. PELVIS: Bladder: Mild circumferential wall thickening. No focal mass or calcification. Bowel: Fluid in the stomach. No obstruction or bowel wall thickening. Peritoneal cavity: No ascites, collection or mesenteric inflammatory response. Normal appendix. Bones: Degenerative changes in the spine and pelvis. Reproductive organs: Within normal limits. IMPRESSION: Distal esophageal wall thickening, likely representing esophagitis. There is no evidence of perforat ion. Thickened urinary bladder wall could indicate cystitis. Clinical correlation is recommended. RADIATION DOSE DELIVERED: 1,753.54mGy.cm Total DLP DATA REPOSITORY: All CT scans at this facility are submitted to the National Radiology Data Registry (NRDR) Dose Index Registry (DIR) with the [employer] (ACR). RADIATION OPTIMIZATION: All CT scans at this facility use at least one of these dose optimization te chniques: automated exposure control; mA and/or kV adjustment per patient size (includes targeted exa ms where dose is matched to clinical indication); or iterative reconstruction.
[2020-03-20 10:18] VITALS: BP 185/96; PULSE 105; RESP 15; O2SAT 98
--- NOTE | 2020-03-20 10:19 | NUR.NOTE ---
resting quietly, respirations are even and unlabored.
[2020-03-20] MEDS: Pantoprazole 40 MG VIAL IVP (10:30)
--- NOTE | 2020-03-20 10:47 | DI.VRAD_ITS ---
PROCEDURE INFORMATION: Exam: CT Chest With Contrast; Diagnostic Exam date and time: 03/20/2020 10:04 AM Age: 69 years old Clinical indication: Other: Epigastric pain, vomiting, gfr 39 TECHNIQUE: Imaging protocol: Diagnostic computed tomography of the chest with intravenous contrast. Radiation optimization: All CT scans at this facility use at least one of these dose optimization techniques: automated exposure control; mA and/or kV adjustment per patient size (includes targeted exams where dose is matched to clinical indication); or iterative reconstruction. Contrast material: OMNIPAQUE 350; Contrast route: INTRAVENOUS (IV); COMPARISON: CT CHEST PE CTA 11/09/2019 12:51 AM FINDINGS: Tubes, catheters and devices: Pacemaker. Lungs: Unremarkable. No consolidation. No masses. Pleural space: Unremarkable. No pneumothorax. No pleural effusion. Heart: Aortic valve replacement. Vascular calcifications including coronary artery calcifications. Mediastinal space: Dilated proximal esophagus. Diffuse thickening of wall of lower half of the esophagus. The wall is of low density suspicious for edema. This could be due to esophagitis. Underlying neoplasm should be considered. Aorta: Unremarkable. No aortic aneurysm. Lymph nodes: Unremarkable. No enlarged lymph nodes. Bones/joints: Sternotomy. Soft tissues: See Mediastinal space finding. IMPRESSION: 1. Dilated upper esophagus with diffuse thickening of lower half the wall of the esophagus which could be due to esophagitis or neoplasia. PROCEDURE INFORMATION: Exam: CT Abdomen And Pelvis With Contrast Exam date and time: 03/20/2020 10:04 AM Age: 69 years old Clinical indication: Other: Epigastric pain, vomiting, gfr 39 TECHNIQUE: Imaging protocol: Computed tomography of the abdomen and pelvis with intravenous contrast. Radiation optimization: All CT scans at this facility use at least one of these dose optimization techniques: automated exposure control; mA and/or kV adjustment per patient size (includes targeted exams where dose is matched to clinical indication); or iterative reconstruction. Contrast material: OMNIPAQUE 350; Contrast volume: 100 ml; Contrast route: INTRAVENOUS (IV); COMPARISON: CT CHEST PE CTA 11/09/2019 12:51 AM FINDINGS: Liver: Normal. No mass. Gallbladder and bile ducts: Normal. No calcified stones. No ductal dilation. Pancreas: Normal. No ductal dilation. Spleen: Normal. No splenomegaly. Adrenal glands: Normal. No mass. Kidneys and ureters: Well-circumscribed water density lesions in both kidneys consistent with benign cysts. Largest measures 4 cm in the lower pole of right kidney. Stomach and bowel: Mild thickening of the wall of the distal gastric antrum could be due to gastritis, ulcer disease, or neoplasia. The stomach is filled with fluid. Appendix: No evidence of appendicitis. Intraperitoneal space: Unremarkable. No free air. No significant fluid collection. Vasculature: Unremarkable. No abdominal aortic aneurysm. Lymph nodes: Unremarkable. No enlarged lymph nodes. Urinary bladder: Diffuse thickening of the wall of the urinary bladder. This could be due to chronic cystitis. Reproductive: Unremarkable as visualized. Bones/joints: Degenerative arthritis in the spine and pelvis. Soft tissues: Unremarkable. IMPRESSION: 1. Mild thickening wall of gastric antrum could be due to gastritis, ulcer disease or neoplasia. 2. Benign renal cysts. 3. Diffuse thickening of the wall of the urinary bladder, likely chronic cystitis. Dictated and Authenticated by: Dionna Rodriguez MD. Ordering:REYNA Garcia MD
[2020-03-20 11:28] VITALS: BP 186/99; RESP 19; TEMP 36.4; O2SAT 94
[2020-03-20 11:55] VITALS: BP 198/103; PULSE 106; RESP 15; O2SAT 96
[2020-03-20 12:13] LABS: Troponin I < 0.05 ng/mL (<0.06)
--- NOTE | 2020-03-20 12:34 | NUR.NOTE ---
repositioned, given pudding for PO challenge
--- NOTE | 2020-03-20 12:45 | NUR.NOTE ---
tolerated PO, states he is better and ready to leave
--- NOTE | 2020-03-20 13:09 | NUR.NOTE ---
sent [facility] fax nitza morgan follow up 1 week and care managment for placement in [facility] Ramon Guerra ed Nursing Note:
[2020-03-20 13:19] VITALS: BP 190/100; PULSE 93; RESP 15; O2SAT 98
== END 2020-03-20 13:30 | disposition home or self-care (01) ==
PROVIDERS: Emergency Provider Emergency Medicine; PCP Family Medicine
DX: K20.90 Esophagitis, unspecified without bleeding (principal); K29.00 Acute gastritis without bleeding; I10 Essential (primary) hypertension; N18.9 Chronic kidney disease, unspecified; E11.22 Type 2 diabetes mellitus with diabetic chronic kidney disease; Z79.84 Long term (current) use of oral hypoglycemic drugs; J44.9 Chronic obstructive pulmonary disease, unspecified
CPT/HCPCS: 36415; 74177; 80053; 83690; 93005; 96361; 96374; 96375; 99285; 71260; 83735; 84484; 85025; 93010; 99284; J2405; J3490

== ENCOUNTER 2020-04-13 01:08 | Inpatient (IN) | payer OTHER, MEDICAID, SELFPAY ==
[2020-04-13] VITALS (36 sets, daily range): BP systolic 108–161; BP diastolic 61–88; PULSE 82–124; RESP 11–25; TEMP 36–36.6; O2SAT 93–100
--- NOTE | 2020-04-13 01:00 | RT.EKG_ITS ---
APPROVED REPORT Exam: Resting ECG Patient Location: E HR:99 bpm ECG Measurements Heart Rate 99 AXIS RI 156 P 65 QRSd 143 QRS -40 QT 410 T 77 QTc 526 Conclusion Sinus rhythm...normal P axis, V-rate 60- 99 Ventricular premature complex...V complex w/ short R-R interval Right bundle branch block...QRSd>120, terminal axis(90,270) Inferior infarct, old...Q >35mS, II III aVF I have reviewed and interpreted ECG and agree with software generated interpretation. Physician: unchanged from prior EKG on 03/20/20
--- NOTE | 2020-04-13 01:00 | DI.CT_ITS ---
EXAM: CT THORAX ABDOMEN CTA CLINICAL HISTORY: epigastric pain and chest pain, r/o dissection. TECHNIQUE: Imaging Protocol: Axial CT angiography was performed with multi-slice acquisition and m ulti-planar and/or 3D reconstructions. CONTRAST MATERIAL: Intravenous: Omnipaque 350 Contrast volume:75 mL Oral: No COMPARISON: CT CT CHEST/ABD/PEL W from 03/20/2020 FINDINGS: CHEST: Tracheobronchial tree: Patent where visualized. Pulmonary parenchyma: No consolidation or dominant measurable mass. There are calcified granulomas sc attered in the lungs. No noncalcified nodules are identified. Pulmonary Arteries: The pulmonary arteries are not adequately opacified for evaluation of pulmonary e mbolic disease. Mediastinum and Maryanne: No dominant adenopathy or fluid collection. There is a patulous esophagus. The re does appear to be mild thickening of the wall of the distal esophagus. Visualized thyroid: Unremarkable. Pleura: No effusion or pneumothorax. Heart: The heart is not dilated. Marked coronary artery calcification and/or stents. No pericardial effusion.Pacing wires are in good position. Aorta: Thoracic aorta non-dilated. Atherosclerosis. No evidence of dissection. Proximal thoracic ao rtic stent. Soft Tissues: Unremarkable. Bones: Degenerative changes. ABDOMEN AND PELVIS: Abdomen: Celiac axis/mesenteric arteries: No evidence of occlusion. There is mild narrowing of the origin of the celiac artery. Atherosclerosis at the origins of both the celiac and the superior mesenteric art eries. Renal Arteries: No evidence of occlusion. Mild narrowing of the origin of the right renal artery. T here is a single renal artery perfusing each kidney. Mild atherosclerosis at the origin of both renal arteries. Aorta: No evidence of occlusion or significant stenosis. No aneurysm or dissection. Pelvis: Iliac Arteries: No evidence of occlusion or significant stenosis. Atherosclerosis. Common Femoral Arteries: No evidence of occlusion or significant stenosis. Atherosclerosis. ABDOMEN: Liver: Normal density. No measurable mass. Portal, Superior Mesenteric, and Splenic Veins: Unremarkable. Gallbladder and Biliary Tract: No radiodense calculus or dilation. Pancreas: Normal density, no abnormal calcifications or inflammatory process. Spleen: Normal. Adrenals: No masses seen. Kidneys: Normal size, contour and axis. No radiodense stones or obstructive uropathy. Bilateral simpl e renal cysts are present. The largest is seen in the lower pole of the right kidney and measures 4. 1 cm. Bowel: No obstruction or bowel wall thickening. No evidence of appendicitis. Question of mild thicke orestes of the wall of the gastric fundus. Peritoneal Cavity: No ascites, collection or mesenteric inflammatory response. No free air. Lymph Nodes: Within normal limits. Bones: Degenerative changes are seen in the spine. There is left spondylolysis at L5. Soft Tissues: Small fat containing right inguinal hernia. PELVIS: Bladder: Symmetric distention, no gross wall thickening. Reproductive Organs: Unremarkable as visualized. Lymph Nodes: Within normal limits. Bones: Please see above. IMPRESSION: 1. No evidence of thoracic aortic dissection or aneurysm. 2. Patulous esophagus with thickening of the wall of the distal esophagus. Infectious/inflammatory e sophagitis and/or reflux should be considered. Mass cannot be entirely excluded. Upper endoscopy or barium esophagram should be considered for further evaluation. 3. No evidence of abdominal aortic aneurysm or dissection. 4. Question of mild thickening of the wall of the gastric fundus. This could be due to gastritis, ul cer disease or neoplasia. Please correlate clinically. RADIATION DOSE DELIVERED: 1,268.17mGy.cm Total DLP DATA REPOSITORY: All CT scans at this facility are submitted to the National Radiology Data Registry (NRDR) Dose Index Registry (DIR) with the [employer] (ACR). RADIATION OPTIMIZATION: All CT scans at this facility use at least one of these dose optimization te chniques: automated exposure control; mA and/or kV adjustment per patient size (includes targeted exa ms where dose is matched to clinical indication); or iterative reconstruction.
--- NOTE | 2020-04-13 01:13 | W.ED.GENAD ---
Discharge Plan Disposition Patient Disposition: [facility] INPATIENT Condition: Stable Discharge Details Clinical Impression: Esophagitis, Chest pain, Acute upper gastrointestinal bleeding, Gastritis Primary Care Provider: Abdullahi Gilliland ED Provider: Torsten Diane Home Meds and New Rx's Prescriptions: No Action mirtazapine 15 mg tablet 15 mg PO DAILY RF: 0 ProAir RespiClick 90 MCG aerosol powdr breath activated 90 mcg Inhalation Q4H PRN PRNRF: 0 ketorolac 0.4 % drops 1 drp OP QID RF: 0 (DME) nebulizers Misc See Rx Instructions .ROUTE .MEDSUPPLY Qty: 1 RF: 0 (DME) oxygen-air delivery systems Device See Rx Instructions .ROUTE .MEDSUPPLY Qty: 1 RF: 0 ezetimibe [Zetia] 10 MG tablet 10 mg PO QAM RF: 0 isosorbide mononitrate 120 MG tablet extended release 24 hr 120 mg PO QAM RF: 0 atorvastatin [Lipitor] 80 MG tablet 80 mg PO HS RF: 0 ropinirole 2 MG tablet 2 mg PO HS RF: 0 multivitamin [Daily Multi-Vitamin] 1 EACH tablet 1 tab PO QAM RF: 0 tamsulosin 0.4 mg Capsule 0.4 mg PO DAILY RF: 0 omeprazole 20 MG capsule,delayed release(DR/EC) 40 mg PO DAILY RF: 0 aspirin 81 mg Tablet,Delayed Release (Dr/Ec) 81 mg PO DAILY Qty: 0 RF: 0 ferrous sulfate 325 mg (65 mg iron) Tablet 325 mg PO BID Qty: 0 RF: 0 Eliquis 5 mg Tablet 5 mg PO BID Qty: 60 RF: 0 metoprolol succinate 100 MG tablet extended release 24 hr 150 mg PO DAILY Qty: 45 RF: 0 furosemide [Lasix] 20 mg tablet 20 mg PO QAM Qty: 4 RF: 0 glipizide 5 mg tablet 5 mg PO DAILY RF: 0 metoclopramide HCl 10 mg Tablet 10 mg PO TID PRNRF: 0 omeprazole 20 mg capsule,delayed release(DR/EC) 20 mg PO DAILY Qty: 30 RF: 0 gabapentin 300 mg Capsule 400 mg PO HS RF: 0 polyethylene glycol 3350 [Miralax] 17 gram Powder In Packet 17 g PO DAILY RF: 0 nitroglycerin [Nitrostat] 0.4 mg Tablet, Sublingual 0.4 mg sublingual PRN PRNRF: 0 fluoxetine 20 mg Capsule 20 mg PO DAILY RF: 0 fluticasone propionate [Flonase Allergy Relief] 50 mcg/actuation [place],Suspension 2 spray INTRANASAL DAILY RF: 0 budesonide-formoterol [Symbicort] 80-4.5 mcg/actuation Hfa Aerosol Inhaler 2 puff INHALATION BID RF: 0 levothyroxine 150 mcg tablet 150 mcg PO HS RF: 0 clotrimazole 1 % cream 1 applic TOPICAL DIRECTED PRNRF: 0 cholecalciferol (vitamin D3) 25 mcg (1,000 unit) tablet 1,000 unit PO DAILY RF: 0 metformin 500 mg tablet extended release 24 hr 500 mg PO DAILY RF: 0 lisinopril 2.5 mg tablet 2.5 mg PO DAILY RF: 0 Trulicity 1.5 mg/0.5 mL pen injector 1.5 mg SUBCUT DAILY AM RF: 0 Levemir FlexTouch U-100 Insuln 100 unit/mL (3 mL) insulin pen 30 unit SC HS RF: 0 potassium chloride [Klor-Con M20] 20 mEq Tablet,Er Particles/Crystals 20 meq PO BID Qty: 60 RF: 0 Slow-Mag 71.5 mg Tablet,Delayed Release (Dr/Ec) 71.5 mg PO BID Qty: 0 RF: 0 ondansetron HCl [Zofran] 4 mg tablet 4 mg PO Q8H PRN (Reason: nausea and vomiting) Qty: 10 RF: 0 Medical Decision Making This is a pleasant 68-year-old male who is unfortunately a notably poor historian but per records as a past medical history of pacemaker defibrillator, coronary artery disease with CABG, COPD, diabetes, depression, irritable bowel syndrome, hypothyroidism, chronic anemia, paroxysmal A. fib on Eliquis, presents today for evaluation of chest pain. Specific details are sparse, but per EMS, fire and the patient it appears that the patient has had anywhere between 1 and 4 hours of chest pain. He says he took a nitroglycerin at home and this helped, he was given an additional nitroglycerin by EMS, this also helped slightly but it is uncertain as to how much. The patient describes the pain going from his epigastric region all the way up through his chest. He is not able to give any other details. Uncertain if there is an exertional component. He denies falls. No other complaints at this time. He denies vomiting, diarrhea, shortness of breath, fever, chills. Physical exam is unremarkable. Vital signs appear stable. EKG shows right bundle branch block which appears to be unchanged. Because of symptomatology is uncertain, but differential includes cardiac etiology, dissection, pancreatitis. Will get CT scan to rule out dissection, perform laboratory and cardiac work-up, monitor closely and reassess. Gastric irritation is also in the differential. Will give GI cocktail 3:11 AM While here the patient had a notable episode of vomitus, there was notable coffee-ground emesis and some bright red blood intermixed. 150 cc total. Heightened concern at this time for upper GI bleed secondary to chronic gastritis worsened by Eliquis use. Laboratory work-up has returned for the patient, hemoglobin level stable, electrolytes stable, creatinine 1.5, GFR 46, total bilirubin elevated at 1.7 but this is well within normal limits for the patient, troponin normal, proBNP at 1400, showing no signs of severe heart failure especially in comparison to his previous values. Lipase normal. Patient was typed and screened. He was given a Protonix bolus followed by a Protonix infusion, we added Carafate, and famotidine drip. CT has returned, it does show evidence of diffuse dilatation of the esophagus with small air debris in the esophagus and mild mural thickening of the distal esophagus concerning for esophagitis, thickening of the stomach as well. Suspect chronic gastritis and esophagitis with mild bleed at this time. Patient is notably hemodynamically stable, no indication at this time for emergent EGD. Patient lives alone at the [facility]. We will admit the patient here for upper GI bleed. Discussed the case with Dr. Malagon. He agrees with the assessment and plan. I have extensively reviewed the treatment plan with the patient. I have addressed all patient concerns at this time. I have also discussed the plan with the admitting physician and they agree with the current assessment and plan and have agreed to assume responsibility for the patient. All parties demonstrate verbal understanding and agreement with our assessment and plan at this time. The documentation in this chart was dictated using [employer] dictation software. Please excuse any dictation errors. Patient did what dose to contact his son at this current hour of the evening. FINDINGS: Tubes, catheters and devices: Left chest wall dual lead cardiac pacemaker is in place. Pulmonary arteries: Opacification of the pulmonary arteries is suboptimal for the evaluation of embolus and bibasilar motion further limits evaluation for pulmonary embolism, segmental or subsegmental pulmonary embolism not excluded. No large central or saddle embolism. Aorta: No thoracic aortic aneurysm or dissection. Mild vascular calcifications of the thoracic aorta. Thyroid: No mass. Lungs: Mild bibasilar atelectasis. Otherwise no pulmonary consolidation or mass. Pleural spaces: Unremarkable. No pneumothorax. No pleural effusion. Heart: Redemonstrated postsurgical changes of aortic valve replacement. Postsurgical changes of prior CABG. No cardiomegaly or pericardial effusion. There are scattered coronary vascular calcifications. Mediastinal space: Mild diffuse dilation of the esophagus with mild circumferential mural thickening of the distal esophagus. There is small air debris level within the dependent esophagus. Lymph nodes: Unremarkable. No pathologically enlarged lymph nodes. Bones/joints: Unremarkable. No acute fracture. Soft tissues: No focal abnormality. IMPRESSION: 1. No thoracic aortic aneurysm or dissection. 2. Mild diffuse dilation of the esophagus with small diffuse air debris level and mild circumferential mural thickening of the distal esophagus. Correlate clinically for symptoms of esophagitis and/or reflux. FINDINGS: Aorta: There are moderate scattered atherosclerotic calcifications of the abdominal aorta and its major branches, no abdominal aortic aneurysm. No dissection. Celiac trunk and mesenteric arteries: Calcified and noncalcified atheromatous plaques at the ostia of the celiac and superior mesenteric arteries with mild relative narrowing, no high-grade stenosis. No occlusion. Also noted are vascular calcifications at the ostia of the inferior mesenteric artery with mild relative narrowing, no high-grade stenosis or occlusion. Renal arteries: Mild vascular calcifications at the ostia of the bilateral renal arteries without significant stenosis or occlusion. Right iliac arteries: Mild vascular calcifications of the right common and internal iliac arteries. No significant stenosis. No occlusion. Left iliac arteries: No occlusion or significant stenosis. Liver: Diffuse hypoattenuation of the liver consistent with fatty infiltration, correlate with LFTs. No mass. Gallbladder and bile ducts: Unremarkable. No calcified stones. No ductal dilation. Pancreas: Unremarkable. No mass. No ductal dilation. Spleen: Unremarkable. No splenomegaly. Adrenal glands: Unremarkable. No mass. Kidneys and ureters: Bilateral renal cysts appear essentially stable. No hydronephrosis. Ureters are normal in course and caliber. Stomach and bowel: There is mild mural thickening of the gastric fundus near the GE junction.Mild mural thickening of underdistended loops of left hemicolon appears similar to comparison exam without significant pericolonic inflammatory stranding, favor changes of underdistention. Otherwise no focal colonic mural thickening. No bowel obstruction. Appendix: No evidence of appendicitis. Intraperitoneal space: Unremarkable. No free air. No significant fluid collection. Lymph nodes: Unremarkable. No enlarged lymph nodes. Urinary bladder: Bladder is incompletely distended mildly limiting evaluation with mild diffuse bladder wall thickening, this appears similar to comparison. No focal bladder wall thickening. Reproductive: Unremarkable as visualized. Bones/joints: No acute fracture. No dislocation. Soft tissues: There is mild fat in the right inguinal canal. Trace/small fat containing umbilical hernia. IMPRESSION: 1. No abdominal aortic aneurysm or dissection. 2. Mild mural thickening of the gastric fundus could be due to gastritis, ulcer disease, or neoplasia. Correlate clinically. 3. Redemonstrated mild diffuse bladder wall thickening of the incompletely distended bladder, not significantly changed. May represent changes of underdistention versus cystitis versus chronic bladder outlet obstruction. Correlate clinically. Thank you for allowing us to participate in the care of your patient. Dictated and Authenticated by: Ronny Vera MD 04/13/2020 3:09 AM Eastern Time ([place] & [place]) HPI General Date/Time Provider Initiated Documentation: 04/13/20 01:13. HPI Narrative: This is a pleasant 68-year-old male who is unfortunately a notably poor historian but per records as a past medical history of pacemaker defibrillator, coronary artery disease with CABG, COPD, diabetes, depression, irritable bowel syndrome, hypothyroidism, chronic anemia, paroxysmal A. fib on Eliquis, presents today for evaluation of chest pain. Specific details are sparse, but per EMS, fire and the patient it appears that the patient has had anywhere between 1 and 4 hours of chest pain. He says he took a nitroglycerin at home and this helped, he was given an additional nitroglycerin by EMS, this also helped slightly but it is uncertain as to how much. The patient describes the pain going from his epigastric region all the way up through his chest. He is not able to give any other details. Uncertain if there is an exertional component. He denies falls. No other complaints at this time. He denies vomiting, diarrhea, shortness of breath, fever, chills. Related Data Home Medications Medication Instructions Recorded Confirmed atorvastatin [Lipitor] 80 mg PO HS 01/05/14 04/13/20 ezetimibe [Zetia] 10 mg PO QAM 01/05/14 04/13/20 isosorbide mononitrate 120 mg PO QAM 01/05/14 04/13/20 multivitamin [Daily Multi-Vitamin] 1 tab PO QAM 01/05/14 04/13/20 ropinirole 2 mg PO HS 01/05/14 04/13/20 ProAir RespiClick 90 mcg INHALATION Q4H PRN PRN 07/10/17 04/13/20 mirtazapine 15 mg tablet 15 mg PO DAILY 07/23/18 04/13/20 gabapentin 400 mg PO HS 10/04/18 04/13/20 ketorolac 0.4 % eye drops 1 drp OP QID 04/01/19 04/13/20 nebulizers #1 each 04/01/19 04/13/20 oxygen-air delivery systems #1 04/01/19 04/13/20 fluoxetine 20 mg PO DAILY 05/29/19 04/13/20 nitroglycerin [Nitrostat] 0.4 mg SUBLINGUAL PRN PRN 05/29/19 04/13/20 polyethylene glycol 3350 [Miralax] 17 g PO DAILY 05/29/19 04/13/20 tamsulosin 0.4 mg PO DAILY 07/18/19 04/13/20 budesonide-formoterol [Symbicort] 2 puff INHALATION BID 09/02/19 04/13/20 fluticasone propionate [Flonase 2 spray INTRANASAL DAILY 09/02/19 04/13/20 Allergy Relief] omeprazole 40 mg PO DAILY 09/03/19 04/13/20 aspirin 81 mg PO DAILY #0 tab 09/09/19 04/13/20 ferrous sulfate 325 mg PO BID #0 tab 09/09/19 04/13/20 Eliquis 5 mg PO BID #60 tab 11/11/19 04/13/20 metoprolol succinate 150 mg PO DAILY #45 tab 11/11/19 04/13/20 furosemide [Lasix] 20 mg PO QAM #4 tab 12/08/19 04/13/20 Levemir FlexTouch U-100 Insuln 30 unit SC HS 01/31/20 04/13/20 Trulicity 1.5 mg SUBCUT DAILY AM 01/31/20 04/13/20 cholecalciferol (vitamin D3) 1,000 unit PO DAILY 01/31/20 04/13/20 clotrimazole 1 applic TOPICAL DIRECTED PRN 01/31/20 04/13/20 levothyroxine 150 mcg PO HS 01/31/20 04/13/20 lisinopril 2.5 mg PO DAILY 01/31/20 04/13/20 metformin 500 mg PO DAILY 01/31/20 04/13/20 Slow-Mag 71.5 mg PO BID #0 tab 02/17/20 04/13/20 potassium chloride [Klor-Con M20] 20 meq PO BID #60 tab 02/17/20 04/13/20 ondansetron HCl [Zofran] 4 mg PO Q8H PRN #10 tab 03/02/20 04/13/20 glipizide 5 mg PO DAILY 03/20/20 04/13/20 metoclopramide HCl 10 mg PO TID PRN 03/20/20 04/13/20 omeprazole 20 mg PO DAILY #30 cap 03/20/20 04/13/20 Previous Rx's Medication Instructions Recorded aspirin 81 mg PO DAILY #0 tab 09/09/19 ferrous sulfate 325 mg PO BID #0 tab 09/09/19 Eliquis 5 mg PO BID #60 tab 11/11/19 metoprolol succinate 150 mg PO DAILY #45 tab 11/11/19 furosemide [Lasix] 20 mg PO QAM #4 tab 12/08/19 Slow-Mag 71.5 mg PO BID #0 tab 02/17/20 potassium chloride [Klor-Con M20] 20 meq PO BID #60 tab 02/17/20 ondansetron HCl [Zofran] 4 mg PO Q8H PRN #10 tab 03/02/20 omeprazole 20 mg PO DAILY #30 cap 03/20/20 Allergies Allergy/AdvReac Type Severity Reaction Status Date / Time No Known Allergies Allergy Verified 04/13/20 01:24 General DAYLIN: 2 Review of Systems All systems reviewed & are unremarkable except as noted in HPI and below PFSH Medical History Abnormal finding of kidney Anxiety with depression Aortic valve replaced Back pain CAD (coronary artery disease) COPD (chronic obstructive pulmonary disease) CVA (cerebral vascular accident) Diabetic neuropathy DM (diabetes mellitus) GERD (gastroesophageal reflux disease) H/O: HTN (hypertension) Hematuria HFrEF (heart failure with reduced ejection fraction) History of bloody stools HTN (hypertension) Hx of fall Hyperlipidemia Hypothyroidism Hypothyroidism (acquired) Insomnia Memory impairment Obesity IVETTE (obstructive sleep apnea) IVETTE on CPAP Pacemaker Paroxysmal atrial fibrillation Passive suicidal ideations Perforated tympanic membrane Polypharmacy Proteinuria Rash, skin Renal insufficiency Sick sinus syndrome Sinus node dysfunction Tinea cruris Surgical History Coronary Artery Bypass Gaft (CABG) Coronary Stent CABGx4 H/O carotid endarterectomy Pacemaker Replacement of aortic valve Family History Other Cancer Heart disease Social History Smoking/Tobacco Use Status: Never Smoking risk assessment performed?: Yes Alcohol Intake: former Drug use: Never Substance use type: does not use Details: Pt reports no alcohol since his heart attack 1995 Household members: none Housing: other Details: [facility] Number of Children: 2 current occupation: Lives at [facility]. Disabled since . Seatbelt use: always Do you feel safe at home: Yes (patient states he would feel safer with wheelchair) Do you feel safe in your relationship?: Yes Additional Social history: lives alone, area on aging comes in to assiste pt. Reports safety issue regarding leg giving out. Exam Narrative Exam Narrative: 1.Const: Well-nourished, Well-developed, appearing stated age 2.Eyes: PERRL, no conjunctival injection, and symmetrical lids. 3.ENT: Atraumatic external nose and ears. Moist MM. Neck: Symmetric, trachea midline, No thyromegaly. 4.CVS: +S1/S2, No murmurs or gallops. Peripheral pulses 2+ and equal in all extremities. Brisk capillary refill in all extremities. Radial pulses are equal bilaterally. 5.RESP: Unlabored respiratory effort. Clear to auscultation bilaterally. No wheezes rales or rhonchi 6.GI: Soft, Nontender/Nondistended, No hepatosplenomegaly. No guarding or rebound. 7.MSK: Normocephalic/Atraumatic, Extremities w/o deformity or ttp No cyanosis or clubbing, Normal movement of all extremities 8.Skin: Warm, Dry. No rashes or lesions. 9.Neuro: roll winder II-XII grossly intact. Sensation grossly intact, no focal neurologic deficits. 10.Psych: (AAO) x3. Appropriate mood and affect
[2020-04-13 01:35] LABS: Abs Immature Grans 0.02 10^3/uL (0.0-0.06); Absolute Basophil Count 0.07 10^3/uL (0.0-0.2); Absolute Lymphocyte Count 3.13 10^3/uL (1.2-3.4); Absolute Monocyte Count 0.73 10^3/uL (0.1-0.8); Eosinophils % 1.4; HCT 41.4 % (40.0-50.0); HGB 14.1 g/dL (13.5-17.5); Immature Grans % 0.3; Lymphocytes % 42.6; MCH 29.9 pg (27.0-33.0); MCHC 34.1 % (32.0-36.0); MCV 87.7 fL (80-95); MPV 10.3 fL (8.0-11.0); Monocytes % 9.9; Neutrophils % 44.8; Nucleated RBC 0 %; Platelet Count 266 10^3/uL (130-400); RBC 4.72 10^6/uL (4.36-5.78); RDW 13.5 % (11.8-14.1); RDW-SD 43.6 fL; WBC 7.35 10^3/uL (4.4-10.8)
[2020-04-13 01:59] LABS: Lipase 96 U/L (73-393); NT-proBNP 1424 pg/mL (<300); Troponin I < 0.05 ng/mL (<0.06)
[2020-04-13] MEDS: Pantoprazole 40 MG VIAL 80 MG IVP (02:03)
[2020-04-13 02:04] LABS: ALT 18 U/L (16-63); AST 16 U/L (15-37); Albumin 2.8 g/dL (3.4-5.0); Alkaline Phosphatase 85 U/L (46-116); BUN 21 mg/dL (7-18); Bilirubin, Total 1.7 mg/dL (0.2-1.0); CREATININE 1.5 mg/dL (0.70-1.30); Calcium 9.2 mg/dL (8.5-10.1); Chloride 97 mmol/L (98-107); Estimated GFR 46.68 (mL/min/1.73m2); Glucose 265 mg/dL (74-106); Potassium 3.6 mmol/L (3.5-5.1); Sodium 136 mmol/L (136-145); Total Protein 6.7 g/dL (6.4-8.2)
[2020-04-13 02:10] LABS: INR 1.1 (0.9-1.1); PTT Activated 23.9 sec (21.0-27.5); Prothrombin Time 10.7 sec (9.3-11.0)
[2020-04-13] MEDS: Sucralfate 1 GM TAB PO (02:10)
[2020-04-13] MEDS: FAMOTIDINE 20 MG/50 ML BAG 100 MG IVPB (02:15)
[2020-04-13] MEDS: Omnipaque 350 MG/ML 100 ML BTL IJ (02:42)
[2020-04-13] MEDS: Normal Saline - Diluent 50 ML VIAL IV (02:43)
[2020-04-13] MEDS: Normal Saline Flush 10 ML SYR IVP ×2 (02:44→05:59)
[2020-04-13] MEDS: PANTOPRAZOLE 80 MG in Normal Saline 100 ML 10 MG IV (02:51)
--- NOTE | 2020-04-13 03:09 | DI.VRAD_ITS ---
PROCEDURE INFORMATION: Exam: CT Angiography Chest With Contrast Exam date and time: 04/13/2020 1:12 AM Age: 69 years old Clinical indication: Type not specified; Abdominal pain; Prior surgery; Surgery date: 6+ months; Surgery type: Cabg, pacemaker, aortic valve replacement; Patient HX: Chest pain and epigastric pain, R/O dissection TECHNIQUE: Imaging protocol: Computed tomographic angiography of the chest with contrast. 3D rendering (Not supervised by radiologist): MIP and/or 3D reconstructed images were created by the technologist. Radiation optimization: All CT scans at this facility use at least one of these dose optimization techniques: automated exposure control; mA and/or kV adjustment per patient size (includes targeted exams where dose is matched to clinical indication); or iterative reconstruction. Contrast material: OMNIPAQUE 350; Contrast volume: 75 ml; Contrast route: INTRAVENOUS (IV); COMPARISON: CT CHEST PE CTA 11/09/2019 12:51 AM FINDINGS: Tubes, catheters and devices: Left chest wall dual lead cardiac pacemaker is in place. Pulmonary arteries: Opacification of the pulmonary arteries is suboptimal for the evaluation of embolus and bibasilar motion further limits evaluation for pulmonary embolism, segmental or subsegmental pulmonary embolism not excluded. No large central or saddle embolism. Aorta: No thoracic aortic aneurysm or dissection. Mild vascular calcifications of the thoracic aorta. Thyroid: No mass. Lungs: Mild bibasilar atelectasis. Otherwise no pulmonary consolidation or mass. Pleural spaces: Unremarkable. No pneumothorax. No pleural effusion. Heart: Redemonstrated postsurgical changes of aortic valve replacement. Postsurgical changes of prior CABG. No cardiomegaly or pericardial effusion. There are scattered coronary vascular calcifications. Mediastinal space: Mild diffuse dilation of the esophagus with mild circumferential mural thickening of the distal esophagus. There is small air debris level within the dependent esophagus. Lymph nodes: Unremarkable. No pathologically enlarged lymph nodes. Bones/joints: Unremarkable. No acute fracture. Soft tissues: No focal abnormality. IMPRESSION: 1. No thoracic aortic aneurysm or dissection. 2. Mild diffuse dilation of the esophagus with small diffuse air debris level and mild circumferential mural thickening of the distal esophagus. Correlate clinically for symptoms of esophagitis and/or reflux. PROCEDURE INFORMATION: Exam: CT Angiography Abdomen and Pelvis With Contrast Exam date and time: 04/13/2020 1:12 AM Age: 69 years old Clinical indication: Type not specified; Abdominal pain; Prior surgery; Surgery date: 6+ months; Surgery type: Cabg, pacemaker, aortic valve replacement; Patient HX: Chest pain and epigastric pain, R/O dissection TECHNIQUE: Imaging protocol: Computed tomographic angiography of the abdomen and pelvis with contrast material. 3D rendering (Not supervised by radiologist): MIP and/or 3D reconstructed images were created by the technologist. Radiation optimization: All CT scans at this facility use at least one of these dose optimization techniques: automated exposure control; mA and/or kV adjustment per patient size (includes targeted exams where dose is matched to clinical indication); or iterative reconstruction. Contrast material: OMNIPAQUE 350; Contrast volume: 75 ml; Contrast route: INTRAVENOUS (IV); COMPARISON: 1. CT CHEST PE CTA 11/09/2019 12:[address] CHEST/ABD/PEL W 03/20/2020 10:05:38 AM FINDINGS: Aorta: There are moderate scattered atherosclerotic calcifications of the abdominal aorta and its major branches, no abdominal aortic aneurysm. No dissection. Celiac trunk and mesenteric arteries: Calcified and noncalcified atheromatous plaques at the ostia of the celiac and superior mesenteric arteries with mild relative narrowing, no high-grade stenosis. No occlusion. Also noted are vascular calcifications at the ostia of the inferior mesenteric artery with mild relative narrowing, no high-grade stenosis or occlusion. Renal arteries: Mild vascular calcifications at the ostia of the bilateral renal arteries without significant stenosis or occlusion. Right iliac arteries: Mild vascular calcifications of the right common and internal iliac arteries. No significant stenosis. No occlusion. Left iliac arteries: No occlusion or significant stenosis. Liver: Diffuse hypoattenuation of the liver consistent with fatty infiltration, correlate with LFTs. No mass. Gallbladder and bile ducts: Unremarkable. No calcified stones. No ductal dilation. Pancreas: Unremarkable. No mass. No ductal dilation. Spleen: Unremarkable. No splenomegaly. Adrenal glands: Unremarkable. No mass. Kidneys and ureters: Bilateral renal cysts appear essentially stable. No hydronephrosis. Ureters are normal in course and caliber. Stomach and bowel: There is mild mural thickening of the gastric fundus near the GE junction.Mild mural thickening of underdistended loops of left hemicolon appears similar to comparison exam without significant pericolonic inflammatory stranding, favor changes of underdistention. Otherwise no focal colonic mural thickening. No bowel obstruction. Appendix: No evidence of appendicitis. Intraperitoneal space: Unremarkable. No free air. No significant fluid collection. Lymph nodes: Unremarkable. No enlarged lymph nodes. Urinary bladder: Bladder is incompletely distended mildly limiting evaluation with mild diffuse bladder wall thickening, this appears similar to comparison. No focal bladder wall thickening. Reproductive: Unremarkable as visualized. Bones/joints: No acute fracture. No dislocation. Soft tissues: There is mild fat in the right inguinal canal. Trace/small fat containing umbilical hernia. IMPRESSION: 1. No abdominal aortic aneurysm or dissection. 2. Mild mural thickening of the gastric fundus could be due to gastritis, ulcer disease, or neoplasia. Correlate clinically. 3. Redemonstrated mild diffuse bladder wall thickening of the incompletely distended bladder, not significantly changed. May represent changes of underdistention versus cystitis versus chronic bladder outlet obstruction. Correlate clinically. Dictated and Authenticated by: Ronny Vera MD. Ordering:JELENA Sarmiento MD
--- NOTE | 2020-04-13 03:43 | W.PM.HP.N ---
Date of service: 04/13/20 Time of Service: 03:43 Assessment and Plan Assessment and plan (1) Acute upper gastrointestinal bleeding: Status: Acute Assessment and plan: UGI bleed, likely esophageal or gastric in origin based on imaging. Unclear to what extent his pain and bleeding are directly related; may be an acute on chronic scenario here. In any case he is hemodynamically stable at present. Will hold DOAC -- does not require urgent reversal -- continue PPI and consult surgery for EGD. NPO and IVF in meantime. History of Present Illness History of Present Illness Chief Complaint: abdominal pain Narrative: 69 male with h/o PAF on DOAC, h/o CAD -- very poor histoian. As far as I can tell from patient he has had months of epigastric pain, or poorly localized pain, radiating up to chest; he cannot specify whether this was in any way different from usual tongiht but per EMS apparently there was a more discrete episode for which patient took SL NTG, apparently with partial relief? At any rate came to ER and proceeded to have episode of coffee ground emesis. Labs of note for Hct 41, CT chest and abdomen showing thickening distal esophagus and stomach at GE junction, with mild diffuse esophageal dilatation with some debris. EKG unchanged, with old IMI and RBBB, with negative troponin. Received IV PPI and H2 roberto, along with Carafate. Admitted for further management. Review of Systems All systems reviewed & are unremarkable except as noted in HPI and below PFSH Medical History Abnormal finding of kidney Anxiety with depression Aortic valve replaced Back pain CAD (coronary artery disease) COPD (chronic obstructive pulmonary disease) CVA (cerebral vascular accident) Diabetic neuropathy DM (diabetes mellitus) GERD (gastroesophageal reflux disease) H/O: HTN (hypertension) Hematuria HFrEF (heart failure with reduced ejection fraction) History of bloody stools HTN (hypertension) Hx of fall Hyperlipidemia Hypothyroidism Hypothyroidism (acquired) Insomnia Memory impairment Obesity IVETTE (obstructive sleep apnea) IVETTE on CPAP Pacemaker Paroxysmal atrial fibrillation Passive suicidal ideations Perforated tympanic membrane Polypharmacy Proteinuria Rash, skin Renal insufficiency Sick sinus syndrome Sinus node dysfunction Tinea cruris Surgical History Coronary Artery Bypass Gaft (CABG) Coronary Stent CABGx4 H/O carotid endarterectomy Pacemaker Replacement of aortic valve Family History Other Cancer Heart disease Social History Smoking/Tobacco Use Status: Never Smoking risk assessment performed?: Yes Alcohol Intake: former Drug use: Never Substance use type: does not use Details: Pt reports no alcohol since his heart attack 1995 Household members: none Housing: other Details: [facility] Number of Children: 2 current occupation: Lives at [facility]. Disabled since . Seatbelt use: always Do you feel safe at home: Yes (patient states he would feel safer with wheelchair) Do you feel safe in your relationship?: Yes Additional Social history: lives alone, area on aging comes in to assiste pt. Reports safety issue regarding leg giving out. Meds Home Medications and Allergies Home Medications Medication Instructions Recorded Confirmed Type atorvastatin [Lipitor] 80 mg PO HS 01/05/14 04/13/20 History ezetimibe [Zetia] 10 mg PO QAM 01/05/14 04/13/20 History isosorbide mononitrate 120 mg PO QAM 01/05/14 04/13/20 History multivitamin [Daily Multi-Vitamin] 1 tab PO QAM 01/05/14 04/13/20 History ropinirole 2 mg PO HS 01/05/14 04/13/20 History ProAir RespiClick 90 mcg INHALATION Q4H PRN PRN 07/10/17 04/13/20 History mirtazapine 15 mg tablet 15 mg PO DAILY 07/23/18 04/13/20 History gabapentin 400 mg PO HS 10/04/18 04/13/20 History ketorolac 0.4 % eye drops 1 drp OP QID 04/01/19 04/13/20 History nebulizers #1 each 04/01/19 04/13/20 History oxygen-air delivery systems #1 04/01/19 04/13/20 History fluoxetine 20 mg PO DAILY 05/29/19 04/13/20 History nitroglycerin [Nitrostat] 0.4 mg SUBLINGUAL PRN PRN 05/29/19 04/13/20 History polyethylene glycol 3350 [Miralax] 17 g PO DAILY 05/29/19 04/13/20 History tamsulosin 0.4 mg PO DAILY 07/18/19 04/13/20 History budesonide-formoterol [Symbicort] 2 puff INHALATION BID 09/02/19 04/13/20 History fluticasone propionate [Flonase 2 spray INTRANASAL DAILY 09/02/19 04/13/20 History Allergy Relief] omeprazole 40 mg PO DAILY 09/03/19 04/13/20 History aspirin 81 mg PO DAILY #0 tab 09/09/19 04/13/20 Rx ferrous sulfate 325 mg PO BID #0 tab 09/09/19 04/13/20 Rx Eliquis 5 mg PO BID #60 tab 11/11/19 04/13/20 Rx metoprolol succinate 150 mg PO DAILY #45 tab 11/11/19 04/13/20 Rx furosemide [Lasix] 20 mg PO QAM #4 tab 12/08/19 04/13/20 Rx Levemir FlexTouch U-100 Insuln 30 unit SC HS 01/31/20 04/13/20 History Trulicity 1.5 mg SUBCUT DAILY AM 01/31/20 04/13/20 History cholecalciferol (vitamin D3) 1,000 unit PO DAILY 01/31/20 04/13/20 History clotrimazole 1 applic TOPICAL DIRECTED PRN 01/31/20 04/13/20 History levothyroxine 150 mcg PO HS 01/31/20 04/13/20 History lisinopril 2.5 mg PO DAILY 01/31/20 04/13/20 History metformin 500 mg PO DAILY 01/31/20 04/13/20 History Slow-Mag 71.5 mg PO BID #0 tab 02/17/20 04/13/20 Rx potassium chloride [Klor-Con M20] 20 meq PO BID #60 tab 02/17/20 04/13/20 Rx ondansetron HCl [Zofran] 4 mg PO Q8H PRN #10 tab 03/02/20 04/13/20 Rx glipizide 5 mg PO DAILY 03/20/20 04/13/20 History metoclopramide HCl 10 mg PO TID PRN 03/20/20 04/13/20 History omeprazole 20 mg PO DAILY #30 cap 03/20/20 04/13/20 Rx Allergies Allergy/AdvReac Type Severity Reaction Status Date / Time No Known Allergies Allergy Verified 04/13/20 01:24 Exam Narrative Exam Narrative: 149/79, 82, 36.1, 16, 98% RA. HEENT atraumatic; neck supple; lungs clear; heart RRR w/o MRG; abdomen + BS, soft and NT; extremities w/o edema; neuro Ox3, moves all 4s Results Labs Result diagrams: 04/13/20 01:00 04/13/20 01:00 Labs: Laboratory Results - last 24 hr 04/13/20 04/13/20 04/13/20 01:00 01:00 01:00 WBC 7.35 RBC 4.72 Hgb 14.1 Hct 41.4 MCV 87.7 MCH 29.9 MCHC 34.1 RDW 13.5 Plt Count 266 MPV 10.3 Immature Gran % 0.3 Neutrophils % 44.8 Lymphocytes % 42.6 Monocytes % 9.9 Eosinophils % 1.4 Basophils % 1.0 Nucleated RBC % 0 Absolute Neutrophils 3.30 Absolute Lymphocytes 3.13 Absolute Monocytes 0.73 Absolute Eosinophils 0.10 Absolute Basophils 0.07 PT INR APTT Sodium 136 Potassium 3.6 Chloride 97 L Carbon Dioxide 27.0 Anion Gap 12.0 H BUN 21 H Creatinine 1.5 H Estimated GFR/1.73 m2 46.68 Glucose 265 H Calcium 9.2 Total Bilirubin 1.7 H AST 16 ALT 18 Alkaline Phosphatase 85 Troponin I < 0.05 NT-Pro-B Natriuret Pep 1424 H Total Protein 6.7 Albumin 2.8 L Lipase 96 Patient ABO/Rh Antibody Screen 04/13/20 04/13/20 01:00 01:45 WBC RBC Hgb Hct MCV MCH MCHC RDW Plt Count MPV Immature Gran % Neutrophils % Lymphocytes % Monocytes % Eosinophils % Basophils % Nucleated RBC % Absolute Neutrophils Absolute Lymphocytes Absolute Monocytes Absolute Eosinophils Absolute Basophils PT 10.7 INR 1.1 APTT 23.9 Sodium Potassium Chloride Carbon Dioxide Anion Gap BUN Creatinine Estimated GFR/1.73 m2 Glucose Calcium Total Bilirubin AST ALT Alkaline Phosphatase Troponin I NT-Pro-B Natriuret Pep Total Protein Albumin Lipase Patient ABO/Rh A Positive Antibody Screen Negative Last Vital Signs Temp 36.1 C L 04/13/20 01:04 Pulse 82 04/13/20 03:31 Resp 16 04/13/20 03:31 BP 149/79 H 04/13/20 03:31 Pulse Ox 98 04/13/20 03:31 COVID-19 Screening Have you, or household traveled for leisure in last 14 days?: No Had IN PERSON contact w/suspected or confirmed C-19 person: No
[2020-04-13 03:53] LABS: Source Nasopharynx
[2020-04-13 04:31] LABS: COVID-19 PCR Negative (Negative); Influenza A PCR Negative (Negative); Influenza B PCR Negative (Negative); RSV PCR Negative (Negative)
[2020-04-13] MEDS: Lactated Ringers 1,000 ML 150 ML IV ×2 (05:58→12:47)
[2020-04-13] MEDS: Ondansetron 4 MG/2 ML VIAL IVP (05:58)
[2020-04-13 07:29] LABS: HCT 40.6 % (40.0-50.0); HGB 13.8 g/dL (13.5-17.5)
[2020-04-13 07:35] LABS: Anion Gap 8.8 mmol/L (3-11); BUN 21 mg/dL (7-18); CO2 27.2 mmol/L (21.0-32.0); CREATININE 1.5 mg/dL (0.70-1.30); Chloride 99 mmol/L (98-107); Estimated GFR 46.68 (mL/min/1.73m2); Glucose 255 mg/dL (74-106); Potassium 3.5 mmol/L (3.5-5.1); Sodium 135 mmol/L (136-145)
--- NOTE | 2020-04-13 07:48 | W.SURGCON ---
Date of service: 04/13/20 Time of Service: 07:48 Assessment and Plan Assessment and plan (1) Acute upper gastrointestinal bleeding: Status: Acute (2) Nausea & vomiting: Status: Acute Assessment and plan: Patient's nausea and vomiting has subsided this morning. H/H was stable last night and continues to be this morning. Patient appears well hydrated and comfortable on exam today. Given his H/H is stable, feel this would be much safer performed as an out-patient following Cardiology clearance, given question of possible chest pain along with his comorbidities. He has an up coming appointment scheduled with his medical investigator already. At this point the procedural risks outweigh the potential benefits. Recommend d/c home on Protonix BID and Carafate TID. History of Present Illness History of Present Illness Chief Complaint: Nausea, vomiting Narrative: 69 y/o male presents to the ER with nausea, vomiting and hematemesis this is associated with epigastric, ?chest pain. While at home he reports that he did take his nitro with improvement in his symptoms. This morning he denies any pain, nausea or vomiting. He expresses that he had an appointment scheduled for an EGD, which he did not make secondary to being ill. He denies any changes in his bowel habits including diarrhea, constipation, bloody stools or black tarry stools. [facility] Medical History Abnormal finding of kidney Anxiety with depression Aortic valve replaced Back pain CAD (coronary artery disease) COPD (chronic obstructive pulmonary disease) CVA (cerebral vascular accident) Diabetic neuropathy DM (diabetes mellitus) GERD (gastroesophageal reflux disease) H/O: HTN (hypertension) Hematuria HFrEF (heart failure with reduced ejection fraction) History of bloody stools HTN (hypertension) Hx of fall Hyperlipidemia Hypothyroidism Hypothyroidism (acquired) Insomnia Memory impairment Obesity IVETTE (obstructive sleep apnea) IVETTE on CPAP Pacemaker Paroxysmal atrial fibrillation Passive suicidal ideations Perforated tympanic membrane Polypharmacy Proteinuria Rash, skin Renal insufficiency Sick sinus syndrome Sinus node dysfunction Tinea cruris Surgical History Coronary Artery Bypass Gaft (CABG) Coronary Stent CABGx4 H/O carotid endarterectomy Pacemaker Replacement of aortic valve Family History Other Cancer Heart disease Social History Smoking/Tobacco Use Status: Never Smoking risk assessment performed?: Yes Alcohol Intake: former Drug use: Never Substance use type: does not use Details: Pt reports no alcohol since his heart attack 1995 Household members: none Housing: other Details: [facility] Number of Children: 2 current occupation: Lives at [facility]. Disabled since . Seatbelt use: always Do you feel safe at home: Yes (patient states he would feel safer with wheelchair) Do you feel safe in your relationship?: Yes Additional Social history: lives alone, area on aging comes in to assiste pt. Reports safety issue regarding leg giving out. Exam Const General: cooperative, healthy appearing and comfortable Orientation: alert and oriented x3 Resp Effort & Inspection: normal respiratory effort, no audible wheezes and no cough GI Inspection: normal to inspection and non-distended Palpation: soft, no guarding and nontender Auscultation: normal bowel sounds Results Last Vital Signs Temp 36.0 C L 04/13/20 07:28 Pulse 87 04/13/20 07:28 Resp 18 04/13/20 07:28 BP 145/83 H 04/13/20 07:28 Pulse Ox 97 04/13/20 07:28 Labs Result diagrams: 04/13/20 06:55 04/13/20 06:55 Labs: Laboratory Results - last 24 hr 04/13/20 04/13/20 04/13/20 01:00 01:00 01:00 WBC 7.35 RBC 4.72 Hgb 14.1 Hct 41.4 MCV 87.7 MCH 29.9 MCHC 34.1 RDW 13.5 Plt Count 266 MPV 10.3 Immature Gran % 0.3 Neutrophils % 44.8 Lymphocytes % 42.6 Monocytes % 9.9 Eosinophils % 1.4 Basophils % 1.0 Nucleated RBC % 0 Absolute Neutrophils 3.30 Absolute Lymphocytes 3.13 Absolute Monocytes 0.73 Absolute Eosinophils 0.10 Absolute Basophils 0.07 PT INR APTT Sodium 136 Potassium 3.6 Chloride 97 L Carbon Dioxide 27.0 Anion Gap 12.0 H BUN 21 H Creatinine 1.5 H Estimated GFR/1.73 m2 46.68 Glucose 265 H Calcium 9.2 Total Bilirubin 1.7 H AST 16 ALT 18 Alkaline Phosphatase 85 Troponin I < 0.05 NT-Pro-B Natriuret Pep 1424 H Total Protein 6.7 Albumin 2.8 L Lipase 96 COVID-19 Source SARS-CoV-2 (PCR) Influenza Type A (PCR) Influenza Type B (PCR) RSV (PCR) Patient ABO/Rh Antibody Screen 04/13/20 04/13/20 04/13/20 01:00 01:45 03:48 WBC RBC Hgb Hct MCV MCH MCHC RDW Plt Count MPV Immature Gran % Neutrophils % Lymphocytes % Monocytes % Eosinophils % Basophils % Nucleated RBC % Absolute Neutrophils Absolute Lymphocytes Absolute Monocytes Absolute Eosinophils Absolute Basophils PT 10.7 INR 1.1 APTT 23.9 Sodium Potassium Chloride Carbon Dioxide Anion Gap BUN Creatinine Estimated GFR/1.73 m2 Glucose Calcium Total Bilirubin AST ALT Alkaline Phosphatase Troponin I NT-Pro-B Natriuret Pep Total Protein Albumin Lipase COVID-19 Source Nasopharynx SARS-CoV-2 (PCR) Negative Influenza Type A (PCR) Negative Influenza Type B (PCR) Negative RSV (PCR) Negative Patient ABO/Rh A Positive Antibody Screen Negative 04/13/20 04/13/20 04/13/20 04:09 06:55 06:55 WBC RBC Hgb 13.8 Hct 40.6 MCV MCH MCHC RDW Plt Count MPV Immature Gran % Neutrophils % Lymphocytes % Monocytes % Eosinophils % Basophils % Nucleated RBC % Absolute Neutrophils Absolute Lymphocytes Absolute Monocytes Absolute Eosinophils Absolute Basophils PT INR APTT Sodium 135 L Potassium 3.5 Chloride 99 Carbon Dioxide 27.2 Anion Gap 8.8 BUN 21 H Creatinine 1.5 H Estimated GFR/1.73 m2 46.68 Glucose 255 H Calcium 9.0 Total Bilirubin AST ALT Alkaline Phosphatase Troponin I Cancelled NT-Pro-B Natriuret Pep Total Protein Albumin Lipase COVID-19 Source SARS-CoV-2 (PCR) Influenza Type A (PCR) Influenza Type B (PCR) RSV (PCR) Patient ABO/Rh Antibody Screen
[2020-04-13 13:56] LABS: HCT 42.6 % (40.0-50.0); HGB 14.4 g/dL (13.5-17.5)
--- NOTE | 2020-04-13 15:27 | PDOC.CMDIS ---
- If Service Date Differs Date of service: 04/13/20 Time of Service: 15:27 LACE Index Scoring Tool - Questions: Length of Stay (in days): 1 Acuity (Admit via E.D.?): Yes Comorbidities: Cerebrovascular Disease, Diabetes w/o Complication, Congestive Heart Failure, Chronic Pulmonary Disease E.D. Visits: 19 - Answers: Total Score: 13 Risk of Readmission: High Risk Care Management Discharge Reason for Hospitalization: GI Bleed Discharge Plan: Sher will be discharged home with a resumption of Home Health services for nursing. He will folllow up with his community providers and discharge plan of care. Sher will transport via [facility] private diesel truck driver coordinated by CM. Patient/Family Education Needs: Discharge plan, limitations, follow up, Ask Me Three
--- NOTE | 2020-04-13 15:34 | W.PM.DS.N ---
Date of service: 04/13/20 Time of Service: 15:34 DS: Diagnosis Discharge Diagnosis (1) Acute upper gastrointestinal bleeding: Status: Suspected Asessment and Plan: H&H remained stable with no further nausea or vomiting. diet advanced. surgical consult with plan for outpatient work up after cardiology clearance. should continue increased PPI and blood thinners, return immediately for recurrent episode or new or worsening symptoms (2) Nausea & vomiting: Status: Resolved Asessment and Plan: resolved and tolerated PO. Discharge Plan Disposition Patient Disposition: HOME Condition: Stable Discharge Details Reason For Visit: UGI BLEED Admit Date/Time: 04/13/20 04:16 Admit Provider: Dameon Malagon Attending Provider: Dameon Malagon Primary Care Provider: Abdullahi Gilliland Home Meds and New Rx's Prescriptions: New sucralfate [Carafate] 100 mg/mL suspension 10 ml PO QAC Qty: 420 RF: 0 Continued mirtazapine 15 mg tablet 15 mg PO DAILY RF: 0 ProAir RespiClick 90 MCG aerosol powdr breath activated 90 mcg Inhalation Q4H PRN PRNRF: 0 ketorolac 0.4 % drops 1 drp OP QID RF: 0 (DME) nebulizers Misc See Rx Instructions .ROUTE .MEDSUPPLY Qty: 1 RF: 0 (DME) oxygen-air delivery systems Device See Rx Instructions .ROUTE .MEDSUPPLY Qty: 1 RF: 0 ezetimibe [Zetia] 10 MG tablet 10 mg PO QAM RF: 0 isosorbide mononitrate 120 MG tablet extended release 24 hr 120 mg PO QAM RF: 0 atorvastatin [Lipitor] 80 MG tablet 80 mg PO HS RF: 0 ropinirole 2 MG tablet 2 mg PO HS RF: 0 multivitamin [Daily Multi-Vitamin] 1 EACH tablet 1 tab PO QAM RF: 0 tamsulosin 0.4 mg Capsule 0.4 mg PO DAILY RF: 0 aspirin 81 mg Tablet,Delayed Release (Dr/Ec) 81 mg PO DAILY Qty: 0 RF: 0 ferrous sulfate 325 mg (65 mg iron) Tablet 325 mg PO BID Qty: 0 RF: 0 Eliquis 5 mg Tablet 5 mg PO BID Qty: 60 RF: 0 metoprolol succinate 100 MG tablet extended release 24 hr 150 mg PO DAILY Qty: 45 RF: 0 furosemide [Lasix] 20 mg tablet 20 mg PO QAM Qty: 4 RF: 0 glipizide 5 mg tablet 5 mg PO DAILY RF: 0 metoclopramide HCl 10 mg Tablet 10 mg PO TID PRNRF: 0 gabapentin 300 mg Capsule 400 mg PO HS RF: 0 polyethylene glycol 3350 [Miralax] 17 gram Powder In Packet 17 g PO DAILY RF: 0 nitroglycerin [Nitrostat] 0.4 mg Tablet, Sublingual 0.4 mg sublingual PRN PRNRF: 0 fluoxetine 20 mg Capsule 20 mg PO DAILY RF: 0 fluticasone propionate [Flonase Allergy Relief] 50 mcg/actuation [place],Suspension 2 spray INTRANASAL DAILY RF: 0 budesonide-formoterol [Symbicort] 80-4.5 mcg/actuation Hfa Aerosol Inhaler 2 puff INHALATION BID RF: 0 levothyroxine 150 mcg tablet 150 mcg PO HS RF: 0 cholecalciferol (vitamin D3) 25 mcg (1,000 unit) tablet 1,000 unit PO DAILY RF: 0 metformin 500 mg tablet extended release 24 hr 500 mg PO DAILY RF: 0 lisinopril 2.5 mg tablet 2.5 mg PO DAILY RF: 0 Trulicity 1.5 mg/0.5 mL pen injector 1.5 mg subcut QWEEK RF: 0 Levemir FlexTouch U-100 Insuln 100 unit/mL (3 mL) insulin pen 30 unit SC HS RF: 0 potassium chloride [Klor-Con M20] 20 mEq Tablet,Er Particles/Crystals 20 meq PO BID Qty: 60 RF: 0 Slow-Mag 71.5 mg Tablet,Delayed Release (Dr/Ec) 71.5 mg PO BID Qty: 0 RF: 0 Changed omeprazole 20 MG capsule,delayed release(DR/EC) 40 mg PO BID Qty: 0 RF: 0 Discharge Instructions Instructions: Gastritis (DC) Additional Instructions: advance diet as tolerated, keep bland drink at least 6-8 glasses of water daily to stay well hydrated increase omeprazole to 40 mg by mouth twice daily add carafate before meals as directed return for new or return of symptoms keep your scheduled appointment with cardiology. Referrals: Roz Drake DO [OSTEOPATHIC DOCTOR] - (pcp appointment 1 week. also f/u with cardiology for clearance for endoscopy) Samia Choe DO [OSTEOPATHIC DOCTOR] - (after cardiology clearance) Activity:: Activity as Tolerated Equipment/Supplies:: No Equipment Needed Diet:: As Tolerated Discharge Orders Discharge Orders: Discharge Order (Routine); Ordered 04/13/20 Ordered By: Elmira De Jesus DS: Summary Time Spent with Patient providing and/or coordinating discharge services: Less than 30 minutes Status at Discharge Functional status at discharge: independent ambulation Overall status at discharge: patient is back to baseline Mental Status: mental status grossly normal Speech and Movement: speech and movement normal Mood: congruent mood Affect: normal affect Exam Narrative Exam Narrative: obese male older than stated age. pink warm dry and well perfused, no acute distress head atraumatic respirations even and unlabored, breath sounds clear cv: regular rate and rhythm, no murmurs. abd: benign, no pain soft ext: baseline, moves all extremities. psyche: normal mood and affect. Psych Mental Status: mental status grossly normal Speech and Movement: speech and movement normal Mood: congruent mood Affect: normal affect DS: Data Vitals/I&O Vitals and I&O: Vital Signs Temperature 36.0 C L 04/13/20 07:28 Temperature Source Tympanic 04/13/20 07:28 Pulse 87 04/13/20 07:28 Pulse Rhythm Regular 04/13/20 09:30 Pulse 86 04/13/20 04:40 Respiratory Rate 18 04/13/20 07:28 Respiratory Effort Non-Labored 04/13/20 09:30 Respiratory Depth Normal 04/13/20 09:30 Respiratory Pattern Normal 04/13/20 09:30 Blood Pressure 145/83 H 04/13/20 07:28 Blood Pressure Mean 90 04/13/20 04:31 Blood Pressure Position Supine 04/13/20 01:04 Pulse Oximetry 97 04/13/20 07:28 Oxygen Delivery Method Room Air 04/13/20 07:28 Oxygen Flow Rate 0 04/13/20 07:28 Pain Level 0 04/13/20 07:28 Intake & Output 04/12/20 04/13/20 04/13/20 23:59 11:59 23:59 Intake Total 60.000 / 4923.062 8591.833 / 1301.833 Output Total 750 / 750 Balance -690.000 / 417.568 3955.833 / 551.833 Weight 101.2 kg Intake: IV 60.000 / 7465.225 4523.833 / 1301.833 Oral 0 / 0 Output: Urine 600 / 600 Emesis 150 / 150 Other: Urine Color Straw Urine Appearance Cloudy Urine Odor Strong Comment concentrated urine Emesis Description Coffee Grounds Blood Tinged Gastric Occult Blood Positive Voiding Methods Toilet Data Completed and Pending Labs on day of discharge: Labs from last 24 hours 04/13/20 04/13/20 04/13/20 13:45 06:55 06:55 WBC RBC Hgb 14.4 13.8 Hct 42.6 40.6 MCV MCH MCHC RDW Plt Count MPV Immature Gran % Neutrophils % Lymphocytes % Monocytes % Eosinophils % Basophils % Nucleated RBC % Absolute Neutrophils Absolute Lymphocytes Absolute Monocytes Absolute Eosinophils Absolute Basophils PT INR APTT Sodium 135 L Potassium 3.5 Chloride 99 Carbon Dioxide 27.2 Anion Gap 8.8 BUN 21 H Creatinine 1.5 H Estimated GFR/1.73 m2 46.68 Glucose 255 H Calcium 9.0 Total Bilirubin AST ALT Alkaline Phosphatase Troponin I NT-Pro-B Natriuret Pep Total Protein Albumin Lipase COVID-19 Source SARS-CoV-2 (PCR) Influenza Type A (PCR) Influenza Type B (PCR) RSV (PCR) Patient ABO/Rh Antibody Screen 04/13/20 04/13/20 04/13/20 04:09 03:48 01:45 WBC RBC Hgb Hct MCV MCH MCHC RDW Plt Count MPV Immature Gran % Neutrophils % Lymphocytes % Monocytes % Eosinophils % Basophils % Nucleated RBC % Absolute Neutrophils Absolute Lymphocytes Absolute Monocytes Absolute Eosinophils Absolute Basophils PT INR APTT Sodium Potassium Chloride Carbon Dioxide Anion Gap BUN Creatinine Estimated GFR/1.73 m2 Glucose Calcium Total Bilirubin AST ALT Alkaline Phosphatase Troponin I Cancelled NT-Pro-B Natriuret Pep Total Protein Albumin Lipase COVID-19 Source Nasopharynx SARS-CoV-2 (PCR) Negative Influenza Type A (PCR) Negative Influenza Type B (PCR) Negative RSV (PCR) Negative Patient ABO/Rh A Positive Antibody Screen Negative 04/13/20 04/13/20 04/13/20 01:00 01:00 01:00 WBC 7.35 RBC 4.72 Hgb 14.1 Hct 41.4 MCV 87.7 MCH 29.9 MCHC 34.1 RDW 13.5 Plt Count 266 MPV 10.3 Immature Gran % 0.3 Neutrophils % 44.8 Lymphocytes % 42.6 Monocytes % 9.9 Eosinophils % 1.4 Basophils % 1.0 Nucleated RBC % 0 Absolute Neutrophils 3.30 Absolute Lymphocytes 3.13 Absolute Monocytes 0.73 Absolute Eosinophils 0.10 Absolute Basophils 0.07 PT 10.7 INR 1.1 APTT 23.9 Sodium Potassium Chloride Carbon Dioxide Anion Gap BUN Creatinine Estimated GFR/1.73 m2 Glucose Calcium Total Bilirubin AST ALT Alkaline Phosphatase Troponin I < 0.05 NT-Pro-B Natriuret Pep 1424 H Total Protein Albumin Lipase 96 COVID-19 Source SARS-CoV-2 (PCR) Influenza Type A (PCR) Influenza Type B (PCR) RSV (PCR) Patient ABO/Rh Antibody Screen 04/13/20 01:00 WBC RBC Hgb Hct MCV MCH MCHC RDW Plt Count MPV Immature Gran % Neutrophils % Lymphocytes % Monocytes % Eosinophils % Basophils % Nucleated RBC % Absolute Neutrophils Absolute Lymphocytes Absolute Monocytes Absolute Eosinophils Absolute Basophils PT INR APTT Sodium 136 Potassium 3.6 Chloride 97 L Carbon Dioxide 27.0 Anion Gap 12.0 H BUN 21 H Creatinine 1.5 H Estimated GFR/1.73 m2 46.68 Glucose 265 H Calcium 9.2 Total Bilirubin 1.7 H AST 16 ALT 18 Alkaline Phosphatase 85 Troponin I NT-Pro-B Natriuret Pep Total Protein 6.7 Albumin 2.8 L Lipase COVID-19 Source SARS-CoV-2 (PCR) Influenza Type A (PCR) Influenza Type B (PCR) RSV (PCR) Patient ABO/Rh Antibody Screen [facility] Medical History Abnormal finding of kidney Anxiety with depression Aortic valve replaced Back pain CAD (coronary artery disease) COPD (chronic obstructive pulmonary disease) CVA (cerebral vascular accident) Diabetic neuropathy DM (diabetes mellitus) GERD (gastroesophageal reflux disease) H/O: HTN (hypertension) Hematuria HFrEF (heart failure with reduced ejection fraction) History of bloody stools HTN (hypertension) Hx of fall Hyperlipidemia Hypothyroidism Hypothyroidism (acquired) Insomnia Memory impairment Obesity IVETTE (obstructive sleep apnea) IVETTE on CPAP Pacemaker Paroxysmal atrial fibrillation Passive suicidal ideations Perforated tympanic membrane Polypharmacy Proteinuria Rash, skin Renal insufficiency Sick sinus syndrome Sinus node dysfunction Tinea cruris Surgical History Coronary Artery Bypass Gaft (CABG) Coronary Stent CABGx4 H/O carotid endarterectomy Pacemaker Replacement of aortic valve Family History Other Cancer Heart disease Social History Smoking/Tobacco Use Status: Never Smoking risk assessment performed?: Yes Alcohol Intake: former Drug use: Never Substance use type: does not use Details: Pt reports no alcohol since his heart attack 1995 Household members: none Housing: other Details: [facility] Number of Children: 2 current occupation: Lives at [facility]. Disabled since . Seatbelt use: always Do you feel safe at home: Yes (patient states he would feel safer with wheelchair) Do you feel safe in your relationship?: Yes Additional Social history: lives alone, [facility] in to assiste pt. Reports safety issue regarding leg giving out.
--- NOTE | 2020-04-13 15:51 | DSE_ITS ---
Date of service: 04/13/20 Time of Service: 15:51 DS: Diagnosis Discharge Diagnosis (1) Acute upper gastrointestinal bleeding: Status: Suspected (2) Nausea & vomiting: Status: Resolved Discharge Plan Disposition Patient Disposition: HOME Condition: Stable Discharge Details Reason For Visit: UGI BLEED Admit Date/Time: 04/13/20 04:16 Admit Provider: Dameon Malagon Attending Provider: Dameon Malagon Primary Care Provider: Abdullahi Gilliland Home Meds and New Rx's Prescriptions: New sucralfate [Carafate] 100 mg/mL suspension 10 ml PO QAC Qty: 420 RF: 0 Continued mirtazapine 15 mg tablet 15 mg PO DAILY RF: 0 ProAir RespiClick 90 MCG aerosol powdr breath activated 90 mcg Inhalation Q4H PRN PRNRF: 0 ketorolac 0.4 % drops 1 drp OP QID RF: 0 (DME) nebulizers Misc See Rx Instructions .ROUTE .MEDSUPPLY Qty: 1 RF: 0 (DME) oxygen-air delivery systems Device See Rx Instructions .ROUTE .MEDSUPPLY Qty: 1 RF: 0 ezetimibe [Zetia] 10 MG tablet 10 mg PO QAM RF: 0 isosorbide mononitrate 120 MG tablet extended release 24 hr 120 mg PO QAM RF: 0 atorvastatin [Lipitor] 80 MG tablet 80 mg PO HS RF: 0 ropinirole 2 MG tablet 2 mg PO HS RF: 0 multivitamin [Daily Multi-Vitamin] 1 EACH tablet 1 tab PO QAM RF: 0 tamsulosin 0.4 mg Capsule 0.4 mg PO DAILY RF: 0 aspirin 81 mg Tablet,Delayed Release (Dr/Ec) 81 mg PO DAILY Qty: 0 RF: 0 ferrous sulfate 325 mg (65 mg iron) Tablet 325 mg PO BID Qty: 0 RF: 0 Eliquis 5 mg Tablet 5 mg PO BID Qty: 60 RF: 0 metoprolol succinate 100 MG tablet extended release 24 hr 150 mg PO DAILY Qty: 45 RF: 0 furosemide [Lasix] 20 mg tablet 20 mg PO QAM Qty: 4 RF: 0 glipizide 5 mg tablet 5 mg PO DAILY RF: 0 metoclopramide HCl 10 mg Tablet 10 mg PO TID PRNRF: 0 gabapentin 300 mg Capsule 400 mg PO HS RF: 0 polyethylene glycol 3350 [Miralax] 17 gram Powder In Packet 17 g PO DAILY RF: 0 nitroglycerin [Nitrostat] 0.4 mg Tablet, Sublingual 0.4 mg sublingual PRN PRNRF: 0 fluoxetine 20 mg Capsule 20 mg PO DAILY RF: 0 fluticasone propionate [Flonase Allergy Relief] 50 mcg/actuation [place],Suspension 2 spray INTRANASAL DAILY RF: 0 budesonide-formoterol [Symbicort] 80-4.5 mcg/actuation Hfa Aerosol Inhaler 2 puff INHALATION BID RF: 0 levothyroxine 150 mcg tablet 150 mcg PO HS RF: 0 cholecalciferol (vitamin D3) 25 mcg (1,000 unit) tablet 1,000 unit PO DAILY RF: 0 metformin 500 mg tablet extended release 24 hr 500 mg PO DAILY RF: 0 lisinopril 2.5 mg tablet 2.5 mg PO DAILY RF: 0 Trulicity 1.5 mg/0.5 mL pen injector 1.5 mg subcut QWEEK RF: 0 Levemir FlexTouch U-100 Insuln 100 unit/mL (3 mL) insulin pen 30 unit SC HS RF: 0 potassium chloride [Klor-Con M20] 20 mEq Tablet,Er Particles/Crystals 20 meq PO BID Qty: 60 RF: 0 Slow-Mag 71.5 mg Tablet,Delayed Release (Dr/Ec) 71.5 mg PO BID Qty: 0 RF: 0 Changed omeprazole 20 MG capsule,delayed release(DR/EC) 40 mg PO BID Qty: 0 RF: 0 Discharge Instructions Instructions: Gastritis (DC) Additional Instructions: advance diet as tolerated, keep bland drink at least 6-8 glasses of water daily to stay well hydrated increase omeprazole to 40 mg by mouth twice daily add carafate before meals as directed return for new or return of symptoms keep your scheduled appointment with cardiology. hold metformin for 2 days as you got IV contrast with your cat scan, hold until apr Referrals: Roz Drake DO [OSTEOPATHIC DOCTOR] - (pcp appointment 1 week. also f/u with cardiology for clearance for endoscopy) Samia Choe DO [OSTEOPATHIC DOCTOR] - (after cardiology clearance) Activity:: Activity as Tolerated Equipment/Supplies:: No Equipment Needed Diet:: As Tolerated Discharge Orders Discharge Orders: Discharge Order (Routine); Ordered 04/13/20 Ordered By: Elmira De Jesus DS: Data Vitals/I&O Vitals and I&O: Vital Signs Temperature 36.6 C 04/13/20 15:45 Temperature Source Tympanic 04/13/20 15:45 Pulse 85 04/13/20 15:45 Pulse Rhythm Regular 04/13/20 09:30 Pulse 86 04/13/20 04:40 Respiratory Rate 18 04/13/20 15:45 Respiratory Effort Non-Labored 04/13/20 09:30 Respiratory Depth Normal 04/13/20 09:30 Respiratory Pattern Normal 04/13/20 09:30 Blood Pressure 111/73 04/13/20 15:45 Blood Pressure Mean 90 04/13/20 04:31 Blood Pressure Position Supine 04/13/20 01:04 Pulse Oximetry 97 04/13/20 15:45 Oxygen Delivery Method Room Air 04/13/20 15:45 Oxygen Flow Rate 0 04/13/20 15:45 Pain Level 0 04/13/20 15:45 Intake & Output 04/12/20 04/13/20 04/13/20 23:59 11:59 23:59 Intake Total 60.000 / 8863.031 2616.833 / 1301.833 Output Total 750 / 750 Balance -690.000 / 366.854 8244.833 / 551.833 Weight 101.2 kg Intake: IV 60.000 / 6624.388 4161.833 / 1301.833 Oral 0 / 0 Output: Urine 600 / 600 Emesis 150 / 150 Other: Urine Color Straw Urine Appearance Cloudy Urine Odor Strong Comment concentrated urine Emesis Description Coffee Grounds Blood Tinged Gastric Occult Blood Positive Voiding Methods Toilet Data Completed and Pending Labs on day of discharge: Labs from last 24 hours 04/13/20 04/13/20 04/13/20 13:45 06:55 06:55 WBC RBC Hgb 14.4 13.8 Hct 42.6 40.6 MCV MCH MCHC RDW Plt Count MPV Immature Gran % Neutrophils % Lymphocytes % Monocytes % Eosinophils % Basophils % Nucleated RBC % Absolute Neutrophils Absolute Lymphocytes Absolute Monocytes Absolute Eosinophils Absolute Basophils PT INR APTT Sodium 135 L Potassium 3.5 Chloride 99 Carbon Dioxide 27.2 Anion Gap 8.8 BUN 21 H Creatinine 1.5 H Estimated GFR/1.73 m2 46.68 Glucose 255 H Calcium 9.0 Total Bilirubin AST ALT Alkaline Phosphatase Troponin I NT-Pro-B Natriuret Pep Total Protein Albumin Lipase COVID-19 Source SARS-CoV-2 (PCR) Influenza Type A (PCR) Influenza Type B (PCR) RSV (PCR) Patient ABO/Rh Antibody Screen 04/13/20 04/13/20 04/13/20 04:09 03:48 01:45 WBC RBC Hgb Hct MCV MCH MCHC RDW Plt Count MPV Immature Gran % Neutrophils % Lymphocytes % Monocytes % Eosinophils % Basophils % Nucleated RBC % Absolute Neutrophils Absolute Lymphocytes Absolute Monocytes Absolute Eosinophils Absolute Basophils PT INR APTT Sodium Potassium Chloride Carbon Dioxide Anion Gap BUN Creatinine Estimated GFR/1.73 m2 Glucose Calcium Total Bilirubin AST ALT Alkaline Phosphatase Troponin I Cancelled NT-Pro-B Natriuret Pep Total Protein Albumin Lipase COVID-19 Source Nasopharynx SARS-CoV-2 (PCR) Negative Influenza Type A (PCR) Negative Influenza Type B (PCR) Negative RSV (PCR) Negative Patient ABO/Rh A Positive Antibody Screen Negative 04/13/20 04/13/20 04/13/20 01:00 01:00 01:00 WBC 7.35 RBC 4.72 Hgb 14.1 Hct 41.4 MCV 87.7 MCH 29.9 MCHC 34.1 RDW 13.5 Plt Count 266 MPV 10.3 Immature Gran % 0.3 Neutrophils % 44.8 Lymphocytes % 42.6 Monocytes % 9.9 Eosinophils % 1.4 Basophils % 1.0 Nucleated RBC % 0 Absolute Neutrophils 3.30 Absolute Lymphocytes 3.13 Absolute Monocytes 0.73 Absolute Eosinophils 0.10 Absolute Basophils 0.07 PT 10.7 INR 1.1 APTT 23.9 Sodium Potassium Chloride Carbon Dioxide Anion Gap BUN Creatinine Estimated GFR/1.73 m2 Glucose Calcium Total Bilirubin AST ALT Alkaline Phosphatase Troponin I < 0.05 NT-Pro-B Natriuret Pep 1424 H Total Protein Albumin Lipase 96 COVID-19 Source SARS-CoV-2 (PCR) Influenza Type A (PCR) Influenza Type B (PCR) RSV (PCR) Patient ABO/Rh Antibody Screen 04/13/20 01:00 WBC RBC Hgb Hct MCV MCH MCHC RDW Plt Count MPV Immature Gran % Neutrophils % Lymphocytes % Monocytes % Eosinophils % Basophils % Nucleated RBC % Absolute Neutrophils Absolute Lymphocytes Absolute Monocytes Absolute Eosinophils Absolute Basophils PT INR APTT Sodium 136 Potassium 3.6 Chloride 97 L Carbon Dioxide 27.0 Anion Gap 12.0 H BUN 21 H Creatinine 1.5 H Estimated GFR/1.73 m2 46.68 Glucose 265 H Calcium 9.2 Total Bilirubin 1.7 H AST 16 ALT 18 Alkaline Phosphatase 85 Troponin I NT-Pro-B Natriuret Pep Total Protein 6.7 Albumin 2.8 L Lipase COVID-19 Source SARS-CoV-2 (PCR) Influenza Type A (PCR) Influenza Type B (PCR) RSV (PCR) Patient ABO/Rh Antibody Screen [facility] Medical History Abnormal finding of kidney Anxiety with depression Aortic valve replaced Back pain CAD (coronary artery disease) COPD (chronic obstructive pulmonary disease) CVA (cerebral vascular accident) Diabetic neuropathy DM (diabetes mellitus) GERD (gastroesophageal reflux disease) H/O: HTN (hypertension) Hematuria HFrEF (heart failure with reduced ejection fraction) History of bloody stools HTN (hypertension) Hx of fall Hyperlipidemia Hypothyroidism Hypothyroidism (acquired) Insomnia Memory impairment Obesity IVETTE (obstructive sleep apnea) IVETTE on CPAP Pacemaker Paroxysmal atrial fibrillation Passive suicidal ideations Perforated tympanic membrane Polypharmacy Proteinuria Rash, skin Renal insufficiency Sick sinus syndrome Sinus node dysfunction Tinea cruris Surgical History Coronary Artery Bypass Gaft (CABG) Coronary Stent CABGx4 H/O carotid endarterectomy Pacemaker Replacement of aortic valve Family History Other Cancer Heart disease Social History Smoking/Tobacco Use Status: Never Smoking risk assessment performed?: Yes Alcohol Intake: former Drug use: Never Substance use type: does not use Details: Pt reports no alcohol since his heart attack 1995 Household members: none Housing: other Details: [facility] Number of Children: 2 current occupation: Lives at [facility]. Disabled since . Seatbelt use: always Do you feel safe at home: Yes (patient states he would feel safer with wheelchair) Do you feel safe in your relationship?: Yes Additional Social history: lives alone, [facility] comes in to assiste pt. Reports safety issue regarding leg giving out.
--- NOTE | 2020-04-16 17:00 | INDS_ITS ---
Date of service: 04/16/20 PT Notes Visit Reasons: UGI BLEED Physical Therapy Inpatient Discharge Summary Date: 04/16/20 Date of service: 04/16/2020 through 04/17/2020 This is a clinical summary of care provided on the duration of dates listed above. No charge was made in the completion of this documentation. Referring Doctor: Dameon Gonzalez MD PT Orders: PT CONSULT: Limited Ability Precautions: Standard. Fall. Activity as tolerated. Patient Profile/Admitting Diagnosis: Transferred to ICU on 04/18/2020. Sher is a 69-year-old male who presented to the ED on 04/16/2020 due to complaints of generalized weakness and fall. He is diagnosed with acute kidney injury superimposed on chronic kidney disease, generalized weakness, urinary tract infection, paroxysmal atrial fibrillation, and repeated falls. No I am alone here may be set for July PMHX: Medical History Abnormal finding of kidney Anxiety with depression Aortic valve replaced Back pain CAD (coronary artery disease) COPD (chronic obstructive pulmonary disease) CVA (cerebral vascular accident) Diabetic neuropathy DM (diabetes mellitus) GERD (gastroesophageal reflux disease) H/O: HTN (hypertension) Hematuria HFrEF (heart failure with reduced ejection fraction) History of bloody stools HTN (hypertension) Hx of fall Hyperlipidemia Hypothyroidism Hypothyroidism (acquired) Insomnia Memory impairment Obesity IVETTE (obstructive sleep apnea) IVETTE on CPAP Pacemaker Paroxysmal atrial fibrillation Passive suicidal ideations Perforated tympanic membrane Polypharmacy Proteinuria Rash, skin Renal insufficiency Sick sinus syndrome Sinus node dysfunction Tinea cruris Surgical History Coronary Artery Bypass Gaft (CABG) Coronary Stent CABGx4 H/O carotid endarterectomy Pacemaker Replacement of aortic valve Social History/Home Situation: Patient lives at home alone at the [facility]. He does have a walker that he utilizes at baseline. Patient states that he is on a list and has already been accepted to receive a motorized wheelchair. Today, he states that he has decided to just buy a friend's motorized wheelchair as he is not sure when he can move up in this list. Equipment Owned/DME: Front-wheeled walker Subjective: NT. See most recent POCKET AND PULLEY MACHINE OPERATOR notes. Objective: General observation: NT. See most recent POCKET AND PULLEY MACHINE OPERATOR notes. Mental Status: NT. See most recent POCKET AND PULLEY MACHINE OPERATOR notes. Pain: NT. See most recent POCKET AND PULLEY MACHINE OPERATOR notes. ROM: Right Upper Extremity: Shoulder Flexion allows up to 100 degrees only. Shoulder abduction allows up to about 90 degrees only. Elbow flexion WFL. Wrist flexion WFL. Functional opening and closing of hand WFL. Left Upper Extremity: Shoulder Flexion allows up to 100 degrees only. Shoulder abduction allows up to about 90 degrees only. Elbow flexion WFL. Wrist flexion WFL. Functional opening and closing of hand WFL. Right Lower Extremity: Hip flexion WFL. Hip abduction WFL. Knee flexion WFL. Ankle dorsiflexion WFL. Ankle plantarflexion WFL. Left Lower Extremity: Hip flexion WFL. Hip abduction WFL. Knee flexion WFL. Ankle dorsiflexion about 10 degrees above neutral. Ankle plantarflexion WFL. Strength: Right Upper Extremity: Shoulder flexors 3-/5. Shoulder abductors 3-/5. Elbow flexors 4/5. Elbow extensors 4/5. Software Deployment Engineer strong. Left Upper Extremity: Shoulder flexors 3-/5. Shoulder abductors 3-/5. Elbow flexors 4/5. Elbow extensors 4/5. Software Deployment Engineer strong. Right Lower Extremity: Hip flexors 3+/5. Hip abductors 4-/5. Knee flexors 4/5. Knee extensors 4-/5. Ankle dorsiflexors 4-/5. Ankle plantarflexors 4-/5. Left Lower Extremity: Hip flexors 3+/5. Hip abductors 4-/5. Knee flexors 4/5. Knee extensors 4-/5. Ankle dorsiflexors 3-/5. Ankle plantarflexors 4-/5. Bed Mobility/Transfers: Sit to supine standby assist Sit to stand minimal assist Stand to sit minimal assist Bed to chair minimal assist Chair to bed minimal assist Gait: Unable to test due to weakness. Was able to toelrate a short distance ambulation of up to 30 feet using front wheeled walker with full weight bearing requiring minimal assist as he feels unsteady, weak, and tired during this episode of care. Balance: Static Sitting: Normal Dynamic Sitting: Normal Static Standing: Fair Dynamic Standing: Fair ASSESSMENT: Sher needed to transfer to ICU level of care as of 04/18/2020 for close medical monitoring of hypotension and suspected GI bleeding. He will be re-evaluated as soon as another referral is received from hospitalist. Sher continues to demonstrate functional mobility pain, generalized weakness, impairment in balance, and increased risk for falls due to admitting diagnoses and co-morbidities. He will benefit from PT services in order to facilitate return to premorbid independent level and maximize ability to return and stay at home Patient continues to present with clinical signs and symptoms consistent with current/admitting diagnoses that have resulted to mobility limitations, gait instability, generalized weakness, and impairment of motor control as demonstrated by the following impairment level findings: 1. Decreased strength to B UE/LE major muscle groups 2. Impaired standing balance 3. Impaired activity tolerance 4. Limitation of joint range of motion in B shoulders Impairments are continuing to contribute to the following functional limitations: 1. Increased dependence with transfers 2. Inability to safely ambulate without assistive device and physical assistance 3. Increase completion time for mobility ADL performance 4. Increased fall risk Patient is assessed as a 51946 moderate complexity based on the following: History: 69-year-old male with impairment level findings, functional limitations, and past medical history as indicated above Examination: Demonstrable impairment in strength, balance, and mobility level with underlying impairments and functional limitations as documented above Presentation:Evolving Decision Makin moderate complexity Goals: Goals X1 week 1. Supine-Sit independent NOT MET 2. Sit-Supine independent NOT MET 3. Sit-Stand independent NOT MET 4. Stand-Sit independent NOT MET 5. Bed-Chair independent NOT MET 6. Gait supervision with the assistance of front wheel walker up to 100 feet NOT MET DISCHARGE RECOMMENDATIONS: Patient will benefit from home health PT services in order to progress mobility level using least restrictive assistive ambulatory device, assess home safety, identify additional equipment needs, and establish a functional maintenance program that will increase ability of patient to remain at home. Will benefit from the use of a motorized wheelchair for community ambulation. TREATMENT CODE/TIME: NC. Thank you for the opportunity to participate in the care of this patient. Melissa Cavazos PT, DPT, CLT [facility] [place], [place]
== END 2020-04-13 16:20 | disposition home or self-care (01) | DRG 378 ==
LOC: ER 04:34 → MS 05:00
PROVIDERS: Nurse Practitioner Acute Care; Admitting Provider General Practice; Emergency Provider Student in an Organized Health Care Education/Training Program; PCP Family Medicine; Visit Provider General Practice
DX: K92.0 Hematemesis (principal); I50.20 Unspecified systolic (congestive) heart failure; Z68.41 Body mass index [BMI] 40.0-44.9, adult; I25.2 Old myocardial infarction; I45.10 Unspecified right bundle-branch block; F41.8 Other specified anxiety disorders; Z95.2 Presence of prosthetic heart valve; I25.10 Atherosclerotic heart disease of native coronary artery without angina pectoris; M54.9 Dorsalgia, unspecified; J44.9 Chronic obstructive pulmonary disease, unspecified; E11.40 Type 2 diabetes mellitus with diabetic neuropathy, unspecified; K21.9 Gastro-esophageal reflux disease without esophagitis; I11.0 Hypertensive heart disease with heart failure; E78.5 Hyperlipidemia, unspecified; E03.9 Hypothyroidism, unspecified; E66.9 Obesity, unspecified; G47.00 Insomnia, unspecified; G47.33 Obstructive sleep apnea (adult) (pediatric); Z95.0 Presence of cardiac pacemaker; Z79.4 Long term (current) use of insulin
CPT/HCPCS: 36415; 71275; 74175; 80048; 80053; 83690; 86850; 86900; 86901; 93005; 96365; 96366; 96368; 96375; 99217; 99221; 99222; 99252; 99285; 83880; 84484; 85014; 85018; 85025; 85610; 85730; 93010; 99236; J2405; J3490

== ENCOUNTER 2020-04-16 02:35 | Inpatient (IN) | payer OTHER, MEDICAID, SELFPAY ==
[2020-04-16] VITALS (11 sets, daily range): BP systolic 100–155; BP diastolic 61–85; PULSE 59–86; RESP 15–20; TEMP 35–37; O2SAT 95–100
--- NOTE | 2020-04-16 | DI.RAD_ITS ---
EXAM: XR LUMBAR SPINE COMPLETE CLINICAL HISTORY: fall. TECHNIQUE: 2D digital imaging was performed. COMPARISON: No exams were available for comparison FINDINGS: There are 5 lumbar type vertebral bodies. No spondylolysis or spondylolisthesis is present. Degener ative changes are present throughout the lumbar spine with endplate osteophytes and facet arthropathy at multiple levels. No acute fracture or subluxation. There is atherosclerosis of the abdominal ao rta noted. IMPRESSION: No acute fracture or subluxation of the lumbar spine. DATA REPOSITORY: RADIATION DOSE DELIVERED:
--- NOTE | 2020-04-16 02:43 | ED.GENADUL_ITS ---
Discharge Plan Disposition Patient Disposition: [facility] INPATIENT Condition: Fair Discharge Details Clinical Impression: Acute kidney injury superimposed on chronic kidney disease, Generalized weakness, UTI (urinary tract infection) Primary Care Provider: Abdullahi Gilliland ED Provider: Jaylen España Amoret Meds and New Rx's Prescriptions: No Action mirtazapine 15 mg tablet 15 mg PO DAILY RF: 0 ProAir RespiClick 90 MCG aerosol powdr breath activated 90 mcg Inhalation Q4H PRN PRNRF: 0 ketorolac 0.4 % drops 1 drp OP QID RF: 0 (DME) nebulizers Misc See Rx Instructions .ROUTE .MEDSUPPLY Qty: 1 RF: 0 (DME) oxygen-air delivery systems Device See Rx Instructions .ROUTE .MEDSUPPLY Qty: 1 RF: 0 ezetimibe [Zetia] 10 MG tablet 10 mg PO QAM RF: 0 isosorbide mononitrate 120 MG tablet extended release 24 hr 120 mg PO QAM RF: 0 atorvastatin [Lipitor] 80 MG tablet 80 mg PO HS RF: 0 ropinirole 2 MG tablet 2 mg PO HS RF: 0 multivitamin [Daily Multi-Vitamin] 1 EACH tablet 1 tab PO QAM RF: 0 tamsulosin 0.4 mg Capsule 0.4 mg PO DAILY RF: 0 aspirin 81 mg Tablet,Delayed Release (Dr/Ec) 81 mg PO DAILY Qty: 0 RF: 0 ferrous sulfate 325 mg (65 mg iron) Tablet 325 mg PO BID Qty: 0 RF: 0 Eliquis 5 mg Tablet 5 mg PO BID Qty: 60 RF: 0 metoprolol succinate 100 MG tablet extended release 24 hr 150 mg PO DAILY Qty: 45 RF: 0 furosemide [Lasix] 20 mg tablet 20 mg PO QAM Qty: 4 RF: 0 glipizide 5 mg tablet 5 mg PO DAILY RF: 0 metoclopramide HCl 10 mg Tablet 10 mg PO TID PRNRF: 0 sucralfate [Carafate] 100 mg/mL suspension 10 ml PO QAC Qty: 420 RF: 0 omeprazole 20 MG capsule,delayed release(DR/EC) 40 mg PO BID Qty: 0 RF: 0 gabapentin 300 mg Capsule 400 mg PO HS RF: 0 polyethylene glycol 3350 [Miralax] 17 gram Powder In Packet 17 g PO DAILY RF: 0 nitroglycerin [Nitrostat] 0.4 mg Tablet, Sublingual 0.4 mg sublingual PRN PRNRF: 0 fluoxetine 20 mg Capsule 20 mg PO DAILY RF: 0 fluticasone propionate [Flonase Allergy Relief] 50 mcg/actuation Echo,Suspension 2 spray INTRANASAL DAILY RF: 0 budesonide-formoterol [Symbicort] 80-4.5 mcg/actuation Hfa Aerosol Inhaler 2 puff INHALATION BID RF: 0 levothyroxine 150 mcg tablet 150 mcg PO HS RF: 0 cholecalciferol (vitamin D3) 25 mcg (1,000 unit) tablet 1,000 unit PO DAILY RF: 0 metformin 500 mg tablet extended release 24 hr 500 mg PO DAILY RF: 0 lisinopril 2.5 mg tablet 2.5 mg PO DAILY RF: 0 Trulicity 1.5 mg/0.5 mL pen injector 1.5 mg subcut QWEEK RF: 0 Levemir FlexTouch U-100 Insuln 100 unit/mL (3 mL) insulin pen 30 unit SC HS RF: 0 potassium chloride [Klor-Con M20] 20 mEq Tablet,Er Particles/Crystals 20 meq PO BID Qty: 60 RF: 0 Slow-Mag 71.5 mg Tablet,Delayed Release (Dr/Ec) 71.5 mg PO BID Qty: 0 RF: 0 Medical Decision Making Patient presenting with general weakness tiredness follow-up. No head strike or loss of consciousness. No evidence of bony injury. Recently discharged for questionable upper GI bleed. Vital signs are stable here. He was able to stand and pivot. Will check EKG, labs, UA. Patient CBC remains normal with stable hemoglobin. Chemistry with a bump in his creatinine to 2.2 from 1.53 days ago. He did receive a CTA on the second so possible transient due to the dye. He is also found to have a UTI. Given his fall tonight and generalized weakness reasonable to start IV fluids dosed with IV ceftriaxone admit to observation status with plan to recheck labs and re-eval for strenght/gait stability. Discussed with patient and with hospitalist. Medical Records Medical records reviewed: Yes I reviewed the patient's medical records. Lab Data Lab results reviewed: Yes I reviewed the patient's lab results. ECG Data Attestation: I personally reviewed and interpreted this ECG (s) as follows: Interpretation: see EKG HPI General Mode of arrival: EMS . Date/Time Provider Initiated Documentation: 04/16/20 02:42 . Limitations to Documentation: no limitations . Information obtained by: patient, EMS, RN notes reviewed and old records reviewed . HPI Narrative: Patient presents to the ED by ambulance status post fall at assisted living. Patient was trying to get to the bathroom but felt like he did not have enough strength and was carrying subsequently leading him to fall backwards. He struck his in the fall but denies hitting his head or having loss of consciousness. He was just discharged from this hospital for questionable upper GI bleed. He denies any further emesis since discharge. He has had some occasional nausea. He denies abdominal pain, chest pain, shortness of breath. He denies focal weakness but has a general feeling of weakness. Initial EMS call was for lift assist but patient appeared to be weaker than usual and EMS transported him here for evaluation. Related Data Home Medications Medication Instructions Recorded Confirmed atorvastatin [Lipitor] 80 mg PO HS 01/05/14 04/13/20 ezetimibe [Zetia] 10 mg PO QAM 01/05/14 04/13/20 isosorbide mononitrate 120 mg PO QAM 01/05/14 04/13/20 multivitamin [Daily Multi-Vitamin] 1 tab PO QAM 01/05/14 04/13/20 ropinirole 2 mg PO HS 01/05/14 04/13/20 ProAir RespiClick 90 mcg INHALATION Q4H PRN PRN 07/10/17 04/13/20 mirtazapine 15 mg tablet 15 mg PO DAILY 07/23/18 04/13/20 gabapentin 400 mg PO HS 10/04/18 04/13/20 ketorolac 0.4 % eye drops 1 drp OP QID 04/01/19 04/13/20 nebulizers #1 each 04/01/19 04/13/20 oxygen-air delivery systems #1 04/01/19 04/13/20 fluoxetine 20 mg PO DAILY 05/29/19 04/13/20 nitroglycerin [Nitrostat] 0.4 mg SUBLINGUAL PRN PRN 05/29/19 04/13/20 polyethylene glycol 3350 [Miralax] 17 g PO DAILY 05/29/19 04/13/20 tamsulosin 0.4 mg PO DAILY 07/18/19 04/13/20 budesonide-formoterol [Symbicort] 2 puff INHALATION BID 09/02/19 04/13/20 fluticasone propionate [Flonase 2 spray INTRANASAL DAILY 09/02/19 04/13/20 Allergy Relief] aspirin 81 mg PO DAILY #0 tab 09/09/19 04/13/20 ferrous sulfate 325 mg PO BID #0 tab 09/09/19 04/13/20 Eliquis 5 mg PO BID #60 tab 11/11/19 04/13/20 metoprolol succinate 150 mg PO DAILY #45 tab 11/11/19 04/13/20 furosemide [Lasix] 20 mg PO QAM #4 tab 12/08/19 04/13/20 Levemir FlexTouch U-100 Insuln 30 unit SC HS 01/31/20 04/13/20 Trulicity 1.5 mg SUBCUT QWEEK 01/31/20 04/13/20 cholecalciferol (vitamin D3) 1,000 unit PO DAILY 01/31/20 04/13/20 levothyroxine 150 mcg PO HS 01/31/20 04/13/20 lisinopril 2.5 mg PO DAILY 01/31/20 04/13/20 metformin 500 mg PO DAILY 01/31/20 04/13/20 Slow-Mag 71.5 mg PO BID #0 tab 02/17/20 04/13/20 potassium chloride [Klor-Con M20] 20 meq PO BID #60 tab 02/17/20 04/13/20 glipizide 5 mg PO DAILY 03/20/20 04/13/20 metoclopramide HCl 10 mg PO TID PRN 03/20/20 04/13/20 omeprazole 40 mg PO BID #0 cap 04/13/20 04/13/20 sucralfate [Carafate] 10 ml PO QAC #420 ml 04/13/20 Previous Rx's Medication Instructions Recorded aspirin 81 mg PO DAILY #0 tab 09/09/19 ferrous sulfate 325 mg PO BID #0 tab 09/09/19 Eliquis 5 mg PO BID #60 tab 11/11/19 metoprolol succinate 150 mg PO DAILY #45 tab 11/11/19 furosemide [Lasix] 20 mg PO QAM #4 tab 12/08/19 Slow-Mag 71.5 mg PO BID #0 tab 02/17/20 potassium chloride [Klor-Con M20] 20 meq PO BID #60 tab 02/17/20 omeprazole 40 mg PO BID #0 cap 04/13/20 sucralfate [Carafate] 10 ml PO QAC #420 ml 04/13/20 Allergies Allergy/AdvReac Type Severity Reaction Status Date / Time No Known Allergies Allergy Verified 04/16/20 03:51 General Stated Complaint: GenMedical DAYLIN: 3 Review of Systems Narrative: 12/23 Review of Systems completed and is negative except as stated above in HPI (Systems reviewed: Const, Eyes, ENT, Resp, CV, GI, , MSK, Skin, Neuro) PFSH Medical History Abnormal finding of kidney Anxiety with depression Aortic valve replaced Back pain CAD (coronary artery disease) COPD (chronic obstructive pulmonary disease) CVA (cerebral vascular accident) Diabetic neuropathy DM (diabetes mellitus) GERD (gastroesophageal reflux disease) H/O: HTN (hypertension) Hematuria HFrEF (heart failure with reduced ejection fraction) History of bloody stools HTN (hypertension) Hx of fall Hyperlipidemia Hypothyroidism Hypothyroidism (acquired) Insomnia Memory impairment Obesity IVETTE (obstructive sleep apnea) IVETTE on CPAP Pacemaker Paroxysmal atrial fibrillation Passive suicidal ideations Perforated tympanic membrane Polypharmacy Proteinuria Rash, skin Renal insufficiency Sick sinus syndrome Sinus node dysfunction Tinea cruris Surgical History Coronary Artery Bypass Gaft (CABG) Coronary Stent CABGx4 H/O carotid endarterectomy Pacemaker Replacement of aortic valve Family History Other Cancer Heart disease Social History Smoking/Tobacco Use Status: Never Smoking risk assessment performed?: Yes Alcohol Intake: former Drug use: Never Substance use type: does not use Details: Pt reports no alcohol since his heart attack 1995 Household members: none Housing: other Details: [facility] Number of Children: 2 current occupation: Lives at [employer] [facility]. Disabled since . Seatbelt use: always Do you feel safe at home: Yes (patient states he would feel safer with wheelchair) Do you feel safe in your relationship?: Yes Additional Social history: lives alone, [facility] comes in to assiste pt. Reports safety issue regarding leg giving out. Exam Narrative Exam Narrative: Const: Elderly, obese male in NAD. HEENT: NC/AT. Normal facial exam. Neck: Supple. Trachea midline. Lungs: Normal respiratory effort. Lungs are clear. Cor: RRR without murmur/gallop. Good radial pulses. GI: Soft. NT/ND. No guarding or rebound. Neuro: A+O x 3. Normal speech, mentation. Cranial nerves II - XII grossly intact. No gross motor or sensory deficit. Ext: No deformity or tenderness. Skin: Warm and dry without abrasion, bruising, laceration. Course Vital Signs Vital signs: Vital Signs Temperature 98.6 F 04/16/20 02:35 Pulse 86 04/16/20 02:35 Blood Pressure 133/85 04/16/20 02:35 Pulse Oximetry 96 04/16/20 02:35 Temperature 98.6 F 04/16/20 02:35 Temperature Source Temporal Artery Scan 04/16/20 02:35 Pulse 86 04/16/20 02:35 Respiratory Rate 18 04/16/20 02:41 Respiratory Effort Non-Labored 04/16/20 02:41 Respiratory Depth Normal 04/16/20 02:41 Respiratory Pattern Normal 04/16/20 02:41 Blood Pressure 133/85 04/16/20 02:35 Blood Pressure Position Supine 04/16/20 02:35 Pulse Oximetry 96 04/16/20 02:35 Oxygen Delivery Method Room Air 04/16/20 02:35 Oxygen Flow Rate 0 04/16/20 02:35
--- NOTE | 2020-04-16 02:45 | RT.EKG_ITS ---
APPROVED REPORT Exam: Resting ECG Patient Location: E HR:83 bpm ECG Measurements Heart Rate 83 AXIS KS 177 P 33 QRSd 158 QRS 269 QT 469 T 77 QTc 550 Conclusion Sinus rhythm...normal P axis, V-rate 60- 99 Inferior infarct, old...Q >35mS, II III aVF There are no significant changes compared to prior EKG performed on 04/13/2020 at 01:21.
[2020-04-16 03:27] LABS: Abs Immature Grans 0.06 10^3/uL (0.0-0.06); Absolute Basophil Count 0.05 10^3/uL (0.0-0.2); Absolute Eosinophil Count 0.08 10^3/uL (0.0-0.7); Absolute Lymphocyte Count 1.48 10^3/uL (1.2-3.4); Absolute Monocyte Count 0.52 10^3/uL (0.1-0.8); Absolute Neutrophil Count 3.34 10^3/uL (1.2-6.7); Basophils % 0.9; Eosinophils % 1.4; HCT 41.6 % (40.0-50.0); HGB 14.1 g/dL (13.5-17.5); Immature Grans % 1.1; Lymphocytes % 26.8; MCH 29.7 pg (27.0-33.0); MCHC 33.9 % (32.0-36.0); MCV 87.6 fL (80-95); MPV 9.8 fL (8.0-11.0); Monocytes % 9.4; Neutrophils % 60.4; Nucleated RBC 0 %; Platelet Count 262 10^3/uL (130-400); RBC 4.75 10^6/uL (4.36-5.78); RDW 13.5 % (11.8-14.1); RDW-SD 43.8 fL; WBC 5.53 10^3/uL (4.4-10.8)
[2020-04-16 03:33] LABS: BUN 22 mg/dL (7-18); CO2 27.2 mmol/L (21.0-32.0); CREATININE 2.2 mg/dL (0.70-1.30); Calcium 9.3 mg/dL (8.5-10.1); Chloride 101 mmol/L (98-107); Magnesium 1.6 mg/dL (1.8-2.4); Potassium 3.3 mmol/L (3.5-5.1); Troponin I < 0.05 ng/mL (<0.06)
[2020-04-16 03:40] LABS: Anion Gap 9.8 mmol/L (3-11); Glucose 114 mg/dL (74-106); Sodium 138 mmol/L (136-145)
[2020-04-16 04:25] LABS: Bilirubin Small (Negative); Blood Small (Negative); Clarity Clear (Clear); Glucose Negative (Negative); Ketones Negative (Negative); Leukocyte Esterase Small (Negative); Nitrite Negative (Negative); Specific Gravity 1.025 (1.005-1.025); pH 5.5 (5-8)
[2020-04-16 04:36] LABS: Bacteria Few HPF (Negative); Epithelial Cells Few HPF (Negative)
[2020-04-16 04:37] LABS: C & S Indicated? Yes; Casts 5-10 Hyaline LPF (Negative); Crystals Negative HPF (Negative); Mucus Negative (Negative)
[2020-04-16] MEDS: Normal Saline 1,000 ML 125 ML IV ×3 (05:12→23:34)
--- NOTE | 2020-04-16 05:21 | W.PM.HP.N ---
Date of service: 04/16/20 Time of Service: Assessment and Plan Assessment and plan (1) Acute kidney injury superimposed on chronic kidney disease: Start date: 04/16/20 Status: Acute Assessment and plan: This is a 69-year-old gentleman who lives in an assisted living facility and recently was qualified for an electric wheelchair. His generalized weakness is worsening and patient was having falls with inability to get up at his living facility. He was found to have acute kidney injury with slight increase in creatinine from baseline. He has been placed on IV fluid resuscitation with labs to follow-up in the morning. Physical therapy needs to see the patient as well. Long-term he may need an inpatient nursing facility for care. He has progressive decline in the recent months. He is a DNR/DNI. (2) Generalized weakness: Start date: 04/16/20 Status: Acute Assessment and plan: Physical therapy will evaluate patient as we rehydrate. Patient may not be safe to live alone at this time. (3) UTI (urinary tract infection): Start date: 04/16/20 Status: Acute Assessment and plan: Possible UTI by initial urinalysis with patient placed on Rocephin. Follow-up urine culture and adjust antibiotic therapy pathogen and sensitivities. Qualifiers: Hematuria presence: without hematuria Urinary tract infection type: site unspecified Qualified Code(s): N39.0 - Urinary tract infection, site not specified (4) Paroxysmal atrial fibrillation: Status: Chronic Assessment and plan: Patient is chronically on Eliquis with recent questionable GI bleed though this medication is continuing. Monitor for safety with anticoagulation. Patient is to be cleared by cardiology for EGD in the near future. (5) Type 2 diabetes mellitus with complication, with long-term current use of insulin: Status: Chronic Assessment and plan: Hold usual medications and get mealtime and nighttime coverage with short acting insulin while hospitalized. Diet as tolerated. History of Present Illness History of Present Illness Chief Complaint: Generalized weakness with fall Narrative: This is a 69-year-old male patient just recently hospitalized for questionable upper GI bleed who was weak and unable to get up off his toilet at home falling backwards. He did not injure his head or lose consciousness. He was brought to the ED for evaluation and found to have slight worsening of his renal functions with generalized weakness worsening and a probable UTI. He was given a dose of Rocephin and started on IV hydration. He denies any recent emesis or hematemesis and has had no blood in his stool. His recheck CBC did not reveal anemia. Patient had no focal neurological complaints and no abdominal complaints but felt like his breathing was not as good as usual. He is chronically short of breath and weak. He is on Eliquis. He denies palpitations or chest discomfort. The patient was brought in for observation and IV hydration as well as initiation of treatment of UTI until pathogen was identified. Long-term he may need placement to a nursing facility rather than assisted living facility with his generalized weakness. He told me that he just got approved for an electric wheelchair but this may not solve all of his problems with inability to transfer independently. Physical therapy will be ordered in the morning. Review of Systems Narrative: 13 point review of systems otherwise unrevealing or stable. [facility] Medical History Abnormal finding of kidney Anxiety with depression Aortic valve replaced Back pain CAD (coronary artery disease) COPD (chronic obstructive pulmonary disease) CVA (cerebral vascular accident) Diabetic neuropathy DM (diabetes mellitus) GERD (gastroesophageal reflux disease) H/O: HTN (hypertension) Hematuria HFrEF (heart failure with reduced ejection fraction) History of bloody stools HTN (hypertension) Hx of fall Hyperlipidemia Hypothyroidism Hypothyroidism (acquired) Insomnia Memory impairment Obesity IVETTE (obstructive sleep apnea) IVETTE on CPAP Pacemaker Paroxysmal atrial fibrillation Passive suicidal ideations Perforated tympanic membrane Polypharmacy Proteinuria Rash, skin Renal insufficiency Sick sinus syndrome Sinus node dysfunction Tinea cruris Surgical History Coronary Artery Bypass Gaft (CABG) Coronary Stent CABGx4 H/O carotid endarterectomy Pacemaker Replacement of aortic valve Family History Other Cancer Heart disease Social History Smoking/Tobacco Use Status: Never Smoking risk assessment performed?: Yes Alcohol Intake: former Drug use: Never Substance use type: does not use Details: Pt reports no alcohol since his heart attack 1995 Household members: none Housing: other Details: [facility] Number of Children: 2 current occupation: Lives at [employer]. Disabled since . Seatbelt use: always Do you feel safe at home: Yes (patient states he would feel safer with wheelchair) Do you feel safe in your relationship?: Yes Additional Social history: lives alone, [facility] comes in to assiste pt. Reports safety issue regarding leg giving out. Meds Home Medications and Allergies Home Medications Medication Instructions Recorded Confirmed Type atorvastatin [Lipitor] 80 mg PO HS 01/05/14 04/13/20 History ezetimibe [Zetia] 10 mg PO QAM 01/05/14 04/13/20 History isosorbide mononitrate 120 mg PO QAM 01/05/14 04/13/20 History multivitamin [Daily Multi-Vitamin] 1 tab PO QAM 01/05/14 04/13/20 History ropinirole 2 mg PO HS 01/05/14 04/13/20 History ProAir RespiClick 90 mcg INHALATION Q4H PRN PRN 07/10/17 04/13/20 History mirtazapine 15 mg tablet 15 mg PO DAILY 07/23/18 04/13/20 History gabapentin 400 mg PO HS 10/04/18 04/13/20 History ketorolac 0.4 % eye drops 1 drp OP QID 04/01/19 04/13/20 History nebulizers #1 each 04/01/19 04/13/20 History oxygen-air delivery systems #1 04/01/19 04/13/20 History fluoxetine 20 mg PO DAILY 05/29/19 04/13/20 History nitroglycerin [Nitrostat] 0.4 mg SUBLINGUAL PRN PRN 05/29/19 04/13/20 History polyethylene glycol 3350 [Miralax] 17 g PO DAILY 05/29/19 04/13/20 History tamsulosin 0.4 mg PO DAILY 07/18/19 04/13/20 History budesonide-formoterol [Symbicort] 2 puff INHALATION BID 09/02/19 04/13/20 History fluticasone propionate [Flonase 2 spray INTRANASAL DAILY 09/02/19 04/13/20 History Allergy Relief] aspirin 81 mg PO DAILY #0 tab 09/09/19 04/13/20 Rx ferrous sulfate 325 mg PO BID #0 tab 09/09/19 04/13/20 Rx Eliquis 5 mg PO BID #60 tab 11/11/19 04/13/20 Rx metoprolol succinate 150 mg PO DAILY #45 tab 11/11/19 04/13/20 Rx furosemide [Lasix] 20 mg PO QAM #4 tab 12/08/19 04/13/20 Rx Levemir FlexTouch U-100 Insuln 30 unit SC HS 01/31/20 04/13/20 History Trulicity 1.5 mg SUBCUT QWEEK 01/31/20 04/13/20 History cholecalciferol (vitamin D3) 1,000 unit PO DAILY 01/31/20 04/13/20 History levothyroxine 150 mcg PO HS 01/31/20 04/13/20 History lisinopril 2.5 mg PO DAILY 01/31/20 04/13/20 History metformin 500 mg PO DAILY 01/31/20 04/13/20 History Slow-Mag 71.5 mg PO BID #0 tab 02/17/20 04/13/20 Rx potassium chloride [Klor-Con M20] 20 meq PO BID #60 tab 02/17/20 04/13/20 Rx glipizide 5 mg PO DAILY 03/20/20 04/13/20 History metoclopramide HCl 10 mg PO TID PRN 03/20/20 04/13/20 History omeprazole 40 mg PO BID #0 cap 04/13/20 04/13/20 Rx sucralfate [Carafate] 10 ml PO QAC #420 ml 04/13/20 Rx Allergies Allergy/AdvReac Type Severity Reaction Status Date / Time No Known Allergies Allergy Verified 04/16/20 03:51 Exam Narrative Exam Narrative: Exam Narrative: General: Patient appears older than stated age, obese but thinning, slow and slightly dysarthric speech which is his baseline but slightly worsened. He is alert and oriented to person and place and possibly time. He is in no acute distress. HEENT: Normocephalic with bald head, coarsened facial features and asymmetry when talking, eyes with pupils equal and reactive to light symmetrically, extraocular movement intact and sclera anicteric. Oropharynx with moist mucosa, discolored and missing teeth with poor dentition. External ears and nose normal. Neck: Supple without JVD. Lungs: Clear to auscultation and percussion with fair aeration and no focalized rales or rhonchi. Back: Stooped posture with no CVA tenderness. Heart: Regular rate and rhythm no appreciable murmurs or gallops. Abdomen: Obese contour and soft, nontender to palpation with no palpable hepatosplenomegaly. Bowel sounds positive but decreased in all quadrants. Genitalia/rectal: Exam deferred. Extremities: Without pitting edema, clubbing or cyanosis. Moderate nonpitting edema over legs. Skin: Pale, cool and dry. Slightly decreased turgor and rough texture. Neuro: Cranial nerves II to XII grossly intact, slight asymmetry in facial movement when talking. No focalizing motor deficits the patient appears generally weak. Psych: Flattened affect with slow monotonous tone to voice, good eye contact. Mood appears normal to slightly depressed and no abnormal thought processes. Remote and recent memory grossly intact. Results Imaging Imaging Studies: EXAM: CT THORAX ABDOMEN CTA CLINICAL HISTORY: epigastric pain and chest pain, r/o dissection. TECHNIQUE: Imaging Protocol: Axial CT angiography was performed with multi-slice acquisition and multi-planar and/or 3D reconstructions. CONTRAST MATERIAL: Intravenous: Omnipaque 350 Contrast volume:75 mL Oral: No COMPARISON: CT CT CHEST/ABD/PEL W from 03/20/2020 FINDINGS: CHEST: Tracheobronchial tree: Patent where visualized. Pulmonary parenchyma: No consolidation or dominant measurable mass. There are calcified granulomas scattered in the lungs. No noncalcified nodules are identified. Pulmonary Arteries: The pulmonary arteries are not adequately opacified for evaluation of pulmonary embolic disease. Mediastinum and Maryanne: No dominant adenopathy or fluid collection. There is a patulous esophagus. There does appear to be mild thickening of the wall of the distal esophagus. Visualized thyroid: Unremarkable. Pleura: No effusion or pneumothorax. Heart: The heart is not dilated. Marked coronary artery calcification and/or stents. No pericardial effusion.Pacing wires are in good position. Aorta: Thoracic aorta non-dilated. Atherosclerosis. No evidence of dissection. Proximal thoracic aortic stent. Soft Tissues: Unremarkable. Bones: Degenerative changes. ABDOMEN AND PELVIS: Abdomen: Celiac axis/mesenteric arteries: No evidence of occlusion. There is mild narrowing of the origin of the celiac artery. Atherosclerosis at the origins of both the celiac and the superior mesenteric arteries. Renal Arteries: No evidence of occlusion. Mild narrowing of the origin of the right renal artery. There is a single renal artery perfusing each kidney. Mild atherosclerosis at the origin of both renal arteries. Aorta: No evidence of occlusion or significant stenosis. No aneurysm or dissection. Pelvis: Iliac Arteries: No evidence of occlusion or significant stenosis. Atherosclerosis. Common Femoral Arteries: No evidence of occlusion or significant stenosis. Atherosclerosis. ABDOMEN: Liver: Normal density. No measurable mass. Portal, Superior Mesenteric, and Splenic Veins: Unremarkable. Gallbladder and Biliary Tract: No radiodense calculus or dilation. Pancreas: Normal density, no abnormal calcifications or inflammatory process. Spleen: Normal. Adrenals: No masses seen. Kidneys: Normal size, contour and axis. No radiodense stones or obstructive uropathy. Bilateral simple renal cysts are present. The largest is seen in the lower pole of the right kidney and measures 4.1 cm. Bowel: No obstruction or bowel wall thickening. No evidence of appendicitis. Question of mild thickening of the wall of the gastric fundus. Peritoneal Cavity: No ascites, collection or mesenteric inflammatory response. No free air. Lymph Nodes: Within normal limits. Bones: Degenerative changes are seen in the spine. There is left spondylolysis at L5. Soft Tissues: Small fat containing right inguinal hernia. PELVIS: Bladder: Symmetric distention, no gross wall thickening. Reproductive Organs: Unremarkable as visualized. Lymph Nodes: Within normal limits. Bones: Please see above. IMPRESSION: 1. No evidence of thoracic aortic dissection or aneurysm. 2. Patulous esophagus with thickening of the wall of the distal esophagus. Infectious/inflammatory esophagitis and/or reflux should be considered. Mass cannot be entirely excluded. Upper endoscopy or barium esophagram should be considered for further evaluation. 3. No evidence of abdominal aortic aneurysm or dissection. 4. Question of mild thickening of the wall of the gastric fundus. This could be due to gastritis, ulcer disease or neoplasia. Please correlate clinically. Dictated By: Jaylen Cerda M.D. 04/13/20 0902 Labs Result diagrams: 04/16/20 03:00 04/16/20 03:00 Labs: Laboratory Results - last 24 hr 04/16/20 04/16/20 04/16/20 03:00 03:00 04:25 WBC 5.53 RBC 4.75 Hgb 14.1 Hct 41.6 MCV 87.6 MCH 29.7 MCHC 33.9 RDW 13.5 Plt Count 262 MPV 9.8 Immature Gran % 1.1 Neutrophils % 60.4 Lymphocytes % 26.8 Monocytes % 9.4 Eosinophils % 1.4 Basophils % 0.9 Nucleated RBC % 0 Absolute Neutrophils 3.34 Absolute Lymphocytes 1.48 Absolute Monocytes 0.52 Absolute Eosinophils 0.08 Absolute Basophils 0.05 Sodium 138 Potassium 3.3 L Chloride 101 Carbon Dioxide 27.2 Anion Gap 9.8 BUN 22 H Creatinine 2.2 H D Estimated GFR/1.73 m2 30.00 Glucose 114 H D Calcium 9.3 Magnesium 1.6 L Troponin I < 0.05 Urine Color Yellow Urine Clarity Clear Urine pH 5.5 Ur Specific [place] 1.025 Urine Protein >=300 H Urine Ketones Negative Urine Blood Small H Urine Nitrite Negative Urine Bilirubin Small H Urine Urobilinogen 1.0 H Ur Leukocyte Esterase Small H Urine RBC 5-10 H Urine WBC 10-20 H Ur Epithelial Cells Few Urine Crystals Negative Urine Bacteria Few Urine Casts 5-10 hyaline Urine Mucus Negative Ur Culture Indicated? Yes Urine Glucose Negative Last Vital Signs Temp 37 C 04/16/20 02:35 Pulse 86 04/16/20 02:35 Resp 18 04/16/20 02:41 BP 133/85 04/16/20 02:35 Pulse Ox 96 04/16/20 02:35 COVID-19 Screening Have you, or household traveled for leisure in last 14 days?: No Had IN PERSON contact w/suspected or confirmed C-19 person: No
[2020-04-16] MEDS: cefTRIAXone 1 GM/50 ML BAG IVPB (05:34)
[2020-04-16] MEDS: FLUoxetine 20 MG CAP PO (07:52)
[2020-04-16] MEDS: Sucralfate 1 GM TAB PO ×3 (07:52→16:37)
[2020-04-16] MEDS: Magnesium Chloride 64 MG TABCR PO ×2 (07:52→19:53)
[2020-04-16] MEDS: Isosorbide Mononitrate 30 MG TABCR 120 MG PO (07:52)
[2020-04-16] MEDS: Aspirin E.C. 81 MG TABEC PO (07:52)
[2020-04-16] MEDS: Ferrous Sulfate 325 MG TAB PO ×2 (07:52→19:54)
[2020-04-16] MEDS: Lisinopril 5 MG TAB 2.5 MG PO (07:53)
[2020-04-16] MEDS: Ezetimibe 10 MG TAB PO (07:53)
[2020-04-16] MEDS: Omeprazole 20 MG CAPCR 40 MG PO ×2 (07:53→19:53)
[2020-04-16] MEDS: Metoprolol CR 100 MG TABCR 150 MG PO (07:53)
[2020-04-16] MEDS: Tamsulosin 0.4 MG CAPCR PO (07:53)
[2020-04-16] MEDS: Apixaban 5 MG TAB PO ×2 (07:53→19:54)
[2020-04-16 07:55] LABS: ALT 16 U/L (16-63); AST 19 U/L (15-37); Albumin 2.4 g/dL (3.4-5.0); Alkaline Phosphatase 85 U/L (46-116); Anion Gap 8.2 mmol/L (3-11); BUN 20 mg/dL (7-18); Bilirubin, Total 0.8 mg/dL (0.2-1.0); CO2 28.8 mmol/L (21.0-32.0); CREATININE 1.9 mg/dL (0.70-1.30); Calcium 8.6 mg/dL (8.5-10.1); Chloride 104 mmol/L (98-107); Estimated GFR 35.54 (mL/min/1.73m2); Glucose 80 mg/dL (74-106); Sodium 141 mmol/L (136-145); Total Protein 5.9 g/dL (6.4-8.2)
[2020-04-16 07:57] LABS: Potassium 2.9 mmol/L (3.5-5.1)
--- NOTE | 2020-04-16 08:56 | IN_ITS ---
Date of service: 04/16/20 Time of Service: 08:56 PT Notes Visit Reasons: ACUTE KIDNEY INJURY, GENERALIZED WEAKNESS, UTI Physical Therapy Inpatient Treatment Note Date: 04/16/20 Referring Doctor: Dameon Gonzalez MD PT Orders: PT CONSULT: Limited Ability Precautions: Standard. Fall. Activity as tolerated. Patient Profile/Admitting Diagnosis: Sher is a 69-year-old male who presented to the ED on 04/16/2020 due to complaints of generalized weakness and fall. He is diagnosed with acute kidney injury superimposed on chronic kidney disease, generalized weakness, urinary tract infection, paroxysmal atrial fibrillation, and repeated falls. PMHX: Medical History Abnormal finding of kidney Anxiety with depression Aortic valve replaced Back pain CAD (coronary artery disease) COPD (chronic obstructive pulmonary disease) CVA (cerebral vascular accident) Diabetic neuropathy DM (diabetes mellitus) GERD (gastroesophageal reflux disease) H/O: HTN (hypertension) Hematuria HFrEF (heart failure with reduced ejection fraction) History of bloody stools HTN (hypertension) Hx of fall Hyperlipidemia Hypothyroidism Hypothyroidism (acquired) Insomnia Memory impairment Obesity IVETTE (obstructive sleep apnea) IVETTE on CPAP Pacemaker Paroxysmal atrial fibrillation Passive suicidal ideations Perforated tympanic membrane Polypharmacy Proteinuria Rash, skin Renal insufficiency Sick sinus syndrome Sinus node dysfunction Tinea cruris Surgical History Coronary Artery Bypass Gaft (CABG) Coronary Stent CABGx4 H/O carotid endarterectomy Pacemaker Replacement of aortic valve Social History/Home Situation: Patient lives at home alone at the [facility]. He does have a walker that he utilizes at baseline. Patient states that he is on a list and has already been accepted to receive a motorized wheelchair. Today, he states that he has decided to just buy a friend's motorized wheelchair as he is not sure when he can move up in this list. Equipment Owned/DME: Front-wheeled walker Subjective: Indicated that he fell at home, pressed his emergency alert device and had EMS pick him and brought him to the ED. Reports weakness and fatigue. Reported R lumbar pain and lower abdominal pain after walking activity stating that he has not had a bowel movement yet. Was relieved to be able to do so after walking activity. Hopes to go home and secure his friend's motorized wheelchair which he strongly feels can benefit him. Objective: General observation: Pale lips. Obese. Seated on bedside chair. IV in R UE. Bilateral TEDS on. Skin abrasion to B knee areas. Mental Status: Alert and oriented x 4 Pain: Abdominal area and R lumbar area at 8/10. ROM: Right Upper Extremity: Shoulder Flexion allows up to 100 degrees only. Shoulder abduction allows up to about 90 degrees only. Elbow flexion WFL. Wrist flexion WFL. Functional opening and closing of hand WFL. Left Upper Extremity: Shoulder Flexion allows up to 100 degrees only. Shoulder abduction allows up to about 90 degrees only. Elbow flexion WFL. Wrist flexion WFL. Functional opening and closing of hand WFL. Right Lower Extremity: Hip flexion WFL. Hip abduction WFL. Knee flexion WFL. Ankle dorsiflexion WFL. Ankle plantarflexion WFL. Left Lower Extremity: Hip flexion WFL. Hip abduction WFL. Knee flexion WFL. Ankle dorsiflexion about 10 degrees above neutral. Ankle plantarflexion WFL. Strength: Right Upper Extremity: Shoulder flexors 3-/5. Shoulder abductors 3-/5. Elbow flexors 4/5. Elbow extensors 4/5. Lining Printer strong. Left Upper Extremity: Shoulder flexors 3-/5. Shoulder abductors 3-/5. Elbow flexors 4/5. Elbow extensors 4/5. Lining Printer strong. Right Lower Extremity: Hip flexors 3+/5. Hip abductors 4-/5. Knee flexors 4/5. Knee extensors 4-/5. Ankle dorsiflexors 4-/5. Ankle plantarflexors 4-/5. Left Lower Extremity: Hip flexors 3+/5. Hip abductors 4-/5. Knee flexors 4/5. Knee extensors 4-/5. Ankle dorsiflexors 3-/5. Ankle plantarflexors 4-/5. Bed Mobility/Transfers: Sit to supine standby assist Sit to stand minimal assist Stand to sit minimal assist Bed to chair minimal assist Chair to bed minimal assist Gait: Guided patient through short distance ambulation of up to 30 feet using front wheeled walker with full weight bearing requiring minimal assist as he feels unsteady, weak, and tired. Wheelchair follow provided by SMITA Mcneill. Juanjo nce decreased. Balance: Static Sitting: Normal Dynamic Sitting: Normal Static Standing: Fair Dynamic Standing: Fair ASSESSMENT: hSer demonstrates functional mobility pain, generalized weakness, impairment in balance, and increased risk for falls due to admitting diagnoses and co-morbidities. He will benefit from PT services in order to facilitate return to premorbid independent level and maximize ability to return and stay at home Patient presents with clinical signs and symptoms consistent with current/admitting diagnoses that have resulted to mobility limitations, gait instability, generalized weakness, and impairment of motor control as demonstrated by the following impairment level findings: 1. Decreased strength to B UE/LE major muscle groups 2. Impaired standing balance 3. Impaired activity tolerance 4. Limitation of joint range of motion in B shoulders Impairments are contributing to the following functional limitations: 1. Increased dependence with transfers 2. Inability to safely ambulate without assistive device and physical assistance 3. Increase completion time for mobility ADL performance 4. Increased fall risk Patient is assessed as a 26075 moderate complexity based on the following: History: 69-year-old male with impairment level findings, functional limitations, and past medical history as indicated above Examination: Demonstrable impairment in strength, balance, and mobility level with underlying impairments and functional limitations as documented above Presentation:Evolving Decision Makin moderate complexity Goals: Goals X1 week 1. Supine-Sit independent 2. Sit-Supine independent 3. Sit-Stand independent 4. Stand-Sit independent 5. Bed-Chair independent 6. Gait supervision with the assistance of front wheel walker up to 100 feet DISCHARGE RECOMMENDATIONS: Patient will benefit from home health PT services in order to progress mobility level using least restrictive assistive ambulatory device, assess home safety, identify additional equipment needs, and establish a functional maintenance program that will increase ability of patient to remain at home. Will benefit from the use of a motorized wheelchair for community a mbulation. TREATMENT CODE/TIME: 80551 x 32 minutes beginning at 8:56 AM. Thank you for the opportunity to participate in the care of this patient. Melissa Cavazos PT, DPT, CLT [facility] [place], [place]
[2020-04-16] MEDS: Budesonide/Formoterol 80/4.5 6.9 GM 60 PUFF INH IH ×2 (09:26→19:52)
[2020-04-16] MEDS: Potassium Chloride 20 MEQ TABCR 40 MEQ PO ×2 (09:36→16:37)
--- NOTE | 2020-04-16 10:09 | PDOC.CMIN ---
- If Service Date Differs Date of service: 04/16/20 Time of Service: 10:09 Care Management Initial Assess REASON FOR HOSPITALIZATION:: TIN superimposed on CKD PAST MEDICAL HISTORY/PAST SURGICAL HISTORY:: Medical History . Abnormal finding of kidney. Anxiety with depression. Aortic valve replaced. Back pain. CAD (coronary artery disease). COPD (chronic obstructive pulmonary disease). CVA (cerebral vascular accident). Diabetic neuropathy. DM (diabetes mellitus). GERD (gastroesophageal reflux disease). H/O: HTN (hypertension). Hematuria. HFrEF (heart failure with reduced ejection fraction). History of bloody stools. HTN (hypertension). Hx of fall. Hyperlipidemia. Hypothyroidism. Hypothyroidism (acquired). Insomnia. Memory impairment. Obesity. IVETTE (obstructive sleep apnea). IVETTE on CPAP. Pacemaker. Paroxysmal atrial fibrillation. Passive suicidal ideations. Perforated tympanic membrane. Polypharmacy. Proteinuria. Rash, skin. Renal insufficiency. Sick sinus syndrome. Sinus node dysfunction. Tinea cruris. Surgical History . Coronary Artery Bypass Gaft (CABG). Coronary Stent. CABGx4. H/O carotid endarterectomy. Pacemaker. Replacement of aortic valve PREVIOUS FUNCTIONAL STATUS/SOCIAL/FAMILY SUPPORTS:: Sher lives alone with his cat in an apartment at the [facility] in [facility]. He has two sons who reside in the [facility], a brother in [place], and a sister who lives locally and is supportive of him. 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 He ambulates with a walker and canes. Sher no longer drives. CURRENT FUNCTIONAL STATUS:: Sher was sitting up in bed when CM met with him. He was pleasant and cooperative and engaged readily with CM. Sher stated that he lost his balance when his leg gave out at home and fell. He also shared that he feels weak. He requested that referrals be sent to area SNFs for rehaab. His first choice is [facility] and second choice would br [facility]. As requested, referrals were sent to both and the [facility] has made a bed offer already. It is pending insurance prior authorization so transfer will likely not happen until Sunday ot Sunday. ADVANCE DIRECTIVES:: On file. His son Casey Hinkle is agent. Has patient been provided with info about the portal/API?: Yes Did the patient sign up for the portal?: No CODE STATUS:: DNR/DNI INSURANCE COVERAGE / FINANCIAL ISSUES:: [facility] HMO (Commercial Medicare Replacement) and Medicaid CURRENT HOME/COMMUNITY SERVICES/EQUIPMENT:: Sher has a walker, canes, and a CPAP machine. He also has an electric scooter but it is in disrepair. He has a adult protective caseworker through [place] [employer], but does not know the adult protective caseworker's name, and is also working with Franklyn Ontiveros from [facility]. He states he also has a Home Health RN who takes care of his medications. PRIMARY CARE PHYSICIAN:: Abdullahi Gilliland MD POTENTIAL DISCHARGE NEEDS:: Follow up appointment with PCP. May need short term rehab. PATIENT/FAMILY EDUCATION NEEDS:: Discharge instructions, limitations and follow up plan of care, including Ask Me Three and self management. TRANSPORTATION:: to be determined by final disposition PLAN:: Sher requested that referrals be sent to [facility] and [facility] and a bed offer has been received from [facility], pending insurance authorization. Transfer will likely take place on Sunday or Sunday if Sher is medically cleared. He will follow up with the facility provider and plan of care. will continue to support Sher and his discharge planning needs. Readmission - Within the Past 30 Days Yes or No: Y - Date of First Admission Date of 1st Admission: 04/13/20 - Date of this Admission Date of Admission: 04/16/20 This admission was: Through ED - Office Visit Since 1st Admission Have you seen your PCP in the office since discharge?: No Had an appointment Been Scheduled?: Yes Date of Scheduled Appointment: 04/20/20 - I. Interview patient and/or Family Difficulty reaching your doctor or getting an office appt?: No Have you had trouble purchasing/ or taking medication?: No Have you had trouble with getting meals at home?: No Did you feel ready for discharge when you left the last time: Yes Were services received that you thought were set up on disch: Yes - If the patient had a VNA ordered Did the patient have a VNA order?: Yes Did you call the VNA before you came?: No - Assessment for Readmission Summary of readmission circumstances, based upon interviews: Sher was hospitalized for less than 24 hours on 04/13/20. he was discharged home with a resumption of services but fell at home. he feels he would benefit from STR and referrals have been sent.
--- NOTE | 2020-04-16 12:07 | DM INPTCON_ITS ---
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 Admitted with TIN, UTI and weakness. PMH:Poorly controlled DM2, HTN, obesity, Hx of CVA with cognitive impairment. Most recent A1c: 11% in 09/03/19 indicates poorly controlled DM. Medical record indicates 20 lbs weight loss in last 8 weeks (-9%) considered significant and may be due to decrease in ADLs and living alone. Home meds include trucility 1.5 mg q week, metformin 500 mg BID, glipizide 5 mg qd, levemire 30 u HS qd. Sher ordered to check his sugars QID. A1C pending. Recommend continuous glucose monitor for when discharged as a tool for increased glycemic understanding and control. Sher will benefit from a CGM with alarms to alert him of hypo/hyperglycemia. INTERVENTION: Unable to met with Sher today, he was sleeping. PLAN: check A1C Continue CHO diet Refer to outpatient diabetes education Discharge with continuous glucose monitor script for remote management will follow when available- either as inpatient or outpatient Time Spent in Nutritional Counseling and Treatment: 0
[2020-04-16 12:33] LABS: Hemoglobin A1C 10.4 % (<5.7)
--- NOTE | 2020-04-16 14:00 | PT.INTREAT ---
Date of service: 04/16/20 Time of Service: 13:15 PT Notes Visit Reasons: ACUTE KIDNEY INJURY, GENERALIZED WEAKNESS, UTI Inpatient Physical Therapy Treatment Note [facility] Date: 04/16/2020 PRECAUTIONS:Fall SUBJECTIVE: Sher is pleasant and agreeable to participating in PT. He reports that he is feeling better this afternoon, although continues to have some back pain. He has requested a heating pad to help with the discomfort. OBJECTIVE: Assembled and educated in use of Aqua-K heating pad. PAIN: Patient reports back pain since his fall at home, but no specific c/o pain during PT session. BED MOBILITY/TRANSFERS Supine-sit: I Sit-supine: I Sit-stand: S Stand-sit: S Bed-Chair: SBA Chair-bed: SBA GAIT Assistive Device: FWW Weight bearing: Full Assist: SBA Distance: 300' Deviation: Stand rest x1 THEREX: Patient was instructed in a LE strengthening program, while seated at EOB, as per flow sheet. TOILETING: Patient toileted independently ASSESSMENT: Patient tolerated a progression in gait distance with FWW support and SBA, without complaint of increased back pain. He demonstrates independence with bed mobility at this time. PLAN: Continue with global strengthening and gait and transfer training for continued progression toward baseline level of function and reduce risk for falls. TREATMENT CODE/TIME: 35 minutes; [id number], [id number] (13:15)
[2020-04-16] MEDS: Acetaminophen 325 MG TAB 650 MG PO (16:37)
[2020-04-16] MEDS: Insulin Aspart 300 UNITS/3 ML PEN SC ×2 (16:45→21:23)
[2020-04-16] MEDS: Atorvastatin 40 MG TAB 80 MG PO (19:53)
[2020-04-16] MEDS: Mirtazapine 15 MG TAB PO (21:22)
[2020-04-16] MEDS: rOPINIRole 1 MG TAB 2 MG PO (21:22)
[2020-04-16] MEDS: Gabapentin 400 MG CAP PO (21:22)
[2020-04-16] MEDS: Levothyroxine 150 MCG TAB PO (21:29)
[2020-04-16 21:45] LABS: COVID-19 RT-PCR UVMMC Result Negative (Negative)
[2020-04-17] MEDS: cefTRIAXone 1 GM/50 ML BAG IVPB (03:57)
[2020-04-17 06:47] LABS: Abs Immature Grans 0.01 10^3/uL (0.0-0.06); Absolute Basophil Count 0.03 10^3/uL (0.0-0.2); Absolute Eosinophil Count 0.12 10^3/uL (0.0-0.7); Absolute Lymphocyte Count 1.51 10^3/uL (1.2-3.4); Absolute Monocyte Count 0.48 10^3/uL (0.1-0.8); Basophils % 0.6; Eosinophils % 2.4; HCT 32.1 % (40.0-50.0); HGB 10.7 g/dL (13.5-17.5); Immature Grans % 0.2; Lymphocytes % 30.5; MCH 29.8 pg (27.0-33.0); MCHC 33.3 % (32.0-36.0); MCV 89.4 fL (80-95); MPV 10.4 fL (8.0-11.0); Monocytes % 9.7; Neutrophils % 56.6; Nucleated RBC 0 %; Platelet Count 213 10^3/uL (130-400); RBC 3.59 10^6/uL (4.36-5.78); RDW 13.5 % (11.8-14.1); RDW-SD 44.4 fL; WBC 4.95 10^3/uL (4.4-10.8)
[2020-04-17 06:58] LABS: Anion Gap 8.3 mmol/L (3-11); BUN 18 mg/dL (7-18); CO2 23.7 mmol/L (21.0-32.0); CREATININE 1.6 mg/dL (0.70-1.30); Calcium 8.1 mg/dL (8.5-10.1); Chloride 107 mmol/L (98-107); Estimated GFR 43.33 (mL/min/1.73m2); Glucose 228 mg/dL (74-106); Magnesium 1.4 mg/dL (1.8-2.4); Potassium 4.1 mmol/L (3.5-5.1); Sodium 139 mmol/L (136-145)
[2020-04-17 07:57] VITALS: BP 128/71; PULSE 71; RESP 18; TEMP 36.5; O2SAT 100
[2020-04-17] MEDS: Budesonide/Formoterol 80/4.5 6.9 GM 60 PUFF INH IH ×2 (08:07→21:26)
[2020-04-17] MEDS: Normal Saline 1,000 ML 125 ML IV (08:46)
[2020-04-17] MEDS: MAGNESIUM SULFATE 4 GM/100 ML BAG IVPB (08:47)
[2020-04-17] MEDS: Aspirin E.C. 81 MG TABEC PO (08:53)
[2020-04-17] MEDS: Metoprolol CR 100 MG TABCR 150 MG PO (08:54)
[2020-04-17] MEDS: Sucralfate 1 GM TAB PO ×3 (08:54→16:29)
[2020-04-17] MEDS: Magnesium Chloride 64 MG TABCR PO ×2 (08:54→19:11)
[2020-04-17] MEDS: Tamsulosin 0.4 MG CAPCR PO (08:54)
[2020-04-17] MEDS: Ezetimibe 10 MG TAB PO (08:55)
[2020-04-17] MEDS: Omeprazole 20 MG CAPCR 40 MG PO ×2 (08:55→19:11)
[2020-04-17] MEDS: Isosorbide Mononitrate 30 MG TABCR 120 MG PO (08:55)
[2020-04-17] MEDS: Apixaban 5 MG TAB PO (08:56)
[2020-04-17] MEDS: FLUoxetine 20 MG CAP PO (08:56)
[2020-04-17] MEDS: Lisinopril 5 MG TAB 2.5 MG PO (08:56)
[2020-04-17] MEDS: Ferrous Sulfate 325 MG TAB PO ×2 (08:56→19:11)
[2020-04-17] MEDS: Insulin Aspart 300 UNITS/3 ML PEN SC ×4 (08:58→21:20)
--- NOTE | 2020-04-17 10:36 | PDOC.CMPRO ---
- If Service Date Differs Date of service: 04/17/20 Time of Service: 10:37 Care Management Progress Note S/O: Sher continues to meet inpatient level of care but is stabilizing. Per doctor note, his hemoglobin dropped 4 points from yesterday. A hemoccult stool test done today returned negative. IV fluids were discontinued. A basic metabolic panel and Magnesium level are ordered for the morning, as is a complete blood count. CM will continue to follow. A: Sher is a 69 year old male admitted to [facility] on 04/16/2020 for acute kidney injury, generalized weakness, and a UTI. P: Plan remains for Sher to discharge to [facility] once insurance authorization has been obtained. Transfer will likely occur on Sunday or Sunday if Sher is medically cleared by provider. He will follow up with the facility provider and plan of care as directed. CM will continue to support Sher and his discharge planning needs.
--- NOTE | 2020-04-17 11:47 | PT.INTREAT ---
PT Notes Visit Reasons: ACUTE KIDNEY INJURY, GENERALIZED WEAKNESS, UTI Inpatient Physical Therapy Treatment Note [facility] Date: 04/17/20 PRECAUTION: TIN, General weakness., UTI Supine-sit: SBA Sit-supine: SBA Sit-stand: SBA Stand-sit: SBA GAIT Assistive Device: FWW Weight bearing: full Assist: SBA Distance: 300ft THEREX: PT completed UE and LE strengthening ther ex as per flow sheet while seated. ASSESSMENT: Pt tolerated today's session well. PLAN: Cont as per PT POC. TREATMENT CODE/TIME: 11:10-11:45 (30) MARSHAL GIBSON
[2020-04-17 12:11] LABS: HGB 11.7 g/dL (13.5-17.5)
--- NOTE | 2020-04-17 13:54 | W.PM.PROGNOT ---
Date of Service Date of service: 04/17/20 Time of Service: 13:54 Assessment and Plan Assessment and plan (1) Acute kidney injury superimposed on chronic kidney disease: Start date: 04/17/20 Start time: 14:05 Status: Resolved Assessment and plan: Resolved. At baseline. IVF dcd, Will continue to monitor. Eating and drinking. (2) Generalized weakness: Start date: 04/17/20 Start time: 14:17 Status: Acute Assessment and plan: Improving, continue PT/OT. He may need higher level of care (3) UTI (urinary tract infection): Start date: 04/17/20 Start time: 14:17 Status: Acute Assessment and plan: cx with gram positive mixed chapo, he is contaminated will dc IV antibiotics he did receive 2 days ceftriaxone. Qualifiers: Hematuria presence: without hematuria Urinary tract infection type: site unspecified Qualified Code(s): N39.0 - Urinary tract infection, site not specified (4) Paroxysmal atrial fibrillation: Start date: 04/17/20 Start time: 14:20 Status: Chronic Assessment and plan: Patient had a 4 drop in hemoglobin, repeat h/h 11.7 and 35. We did hold asa and eliquis. Will monitor stool for blood and h/h. when stable will resume medication. (5) Type 2 diabetes mellitus with complication, with long-term current use of insulin: Start date: 04/17/20 Start time: 14:21 Status: Chronic Assessment and plan: Hold usual medications and get mealtime and nighttime coverage with short acting insulin while hospitalized. Diet as tolerated. above case discusssed with dr. ochoa who is in agreement. Subjective Subjective Patient reports: no new complaints Interval history since last seen: lying in bed on CPAP, he was ambulatory with PT today and a walker. Hemmoccult stool negative. He did drop in hemoglobin 4 points from yesterday. Repeat H/H 11.7/35.0. Creatinine is at baseline. He is eating and drinking, will d/c IVF. Repeat labs in am. Otherwise no knew complaints. Exam Const General: cooperative, comfortable, no acute distress, frail appearing and ill appearing chronically Nutritional Appearance: overweight Orientation: alert, awake and oriented x3 Eyes Pupils: PERRL EOM: EOM intact bilaterally Neck Thyroid: thyroid normal Lymphatic: no lymphadenopathy noted Chest Chest: normal inspection of the chest Resp Effort & Inspection: normal respiratory effort Auscultation: clear to auscultation bilaterally Cardio Jugular venous pressure: no JVD Rate: regular rate Rhythm: regular rhythm Heart Sounds: S1 normal and S2 normal GI Inspection: normal to inspection Palpation: soft and no hepatosplenomegaly Auscultation: normal bowel sounds General: deferred Back/Spine/Pelvis Back: no CVA tenderness Thoracic/Lumbar Spine: thoracic and lumbar spine normal to inspection Other: pain to right side of his back appears muscular in nature Skin General skin exam: no rashes or lesions noted Neuro General: patient alert, patient awake and patient oriented x3 Extrem General: normal to inspection, full ROM, no joint enlargement and no clubbing, cyanosis or edema Psych Appearance: disheveled Mental Status: mental status grossly normal Speech and Movement: speech and movement normal Mood: congruent mood Objective Last Vital Signs Temp 36.5 C 04/17/20 07:57 Pulse 71 04/17/20 07:57 Resp 18 04/17/20 07:57 BP 128/71 04/17/20 07:57 Pulse Ox 100 04/17/20 07:57 Laboratory Results - last 24 hr 04/16/20 04/17/20 04/17/20 06:00 06:18 06:18 WBC 4.95 RBC 3.59 L Hgb 10.7 L D Hct 32.1 L D MCV 89.4 MCH 29.8 MCHC 33.3 RDW 13.5 Plt Count 213 MPV 10.4 Immature Gran % 0.2 Neutrophils % 56.6 Lymphocytes % 30.5 Monocytes % 9.7 Eosinophils % 2.4 Basophils % 0.6 Nucleated RBC % 0 Absolute Neutrophils 2.80 Absolute Lymphocytes 1.51 Absolute Monocytes 0.48 Absolute Eosinophils 0.12 Absolute Basophils 0.03 Sodium 139 Potassium 4.1 D Chloride 107 Carbon Dioxide 23.7 Anion Gap 8.3 BUN 18 Creatinine 1.6 H Estimated GFR/1.73 m2 43.33 Glucose 228 H D Calcium 8.1 L Magnesium 1.4 L SARS-CoV-2 (PCR) Negative Nasopharyn COVID-19 PCR Not Applicable Ref Test Perform Site [facility] 04/17/20 11:59 WBC RBC Hgb 11.7 L Hct 35.0 L MCV MCH MCHC RDW Plt Count MPV Immature Gran % Neutrophils % Lymphocytes % Monocytes % Eosinophils % Basophils % Nucleated RBC % Absolute Neutrophils Absolute Lymphocytes Absolute Monocytes Absolute Eosinophils Absolute Basophils Sodium Potassium Chloride Carbon Dioxide Anion Gap BUN Creatinine Estimated GFR/1.73 m2 Glucose Calcium Magnesium SARS-CoV-2 (PCR) Nasopharyn COVID-19 PCR Ref Test Perform Site
[2020-04-17 15:39] VITALS: BP 149/84; PULSE 65; RESP 17; TEMP 35.4; O2SAT 99
[2020-04-17] MEDS: Acetaminophen 325 MG TAB 650 MG PO ×2 (16:29→21:21)
[2020-04-17] MEDS: Lidocaine 5% Patch 1 PATCH TP (19:10)
[2020-04-17] MEDS: Atorvastatin 40 MG TAB 80 MG PO (19:11)
[2020-04-17] MEDS: rOPINIRole 1 MG TAB 2 MG PO (21:21)
[2020-04-17] MEDS: Mirtazapine 15 MG TAB PO (21:21)
[2020-04-17] MEDS: Gabapentin 400 MG CAP PO (21:21)
[2020-04-17] MEDS: Levothyroxine 150 MCG TAB PO (21:21)
[2020-04-17 21:40] VITALS: BP 140/86; PULSE 68; RESP 16; TEMP 37; O2SAT 92
[2020-04-18] VITALS (27 sets, daily range): BP systolic 62–123; BP diastolic 32–89; PULSE 58–74; RESP 15–19; TEMP 35.8–37; O2SAT 93–100
[2020-04-18] MEDS: Lidocaine Patch Removal 1 EACH TP (06:34)
[2020-04-18 06:47] LABS: Abs Immature Grans 0.02 10^3/uL (0.0-0.06); Absolute Basophil Count 0.03 10^3/uL (0.0-0.2); Absolute Eosinophil Count 0.12 10^3/uL (0.0-0.7); Absolute Lymphocyte Count 1.62 10^3/uL (1.2-3.4); Absolute Neutrophil Count 3.44 10^3/uL (1.2-6.7); Basophils % 0.5; Eosinophils % 2.1; HCT 35.7 % (40.0-50.0); HGB 11.9 g/dL (13.5-17.5); Immature Grans % 0.3; Lymphocytes % 28.3; MCHC 33.3 % (32.0-36.0); MCV 89.9 fL (80-95); MPV 10.3 fL (8.0-11.0); Monocytes % 8.7; Neutrophils % 60.1; Nucleated RBC 0 %; Platelet Count 215 10^3/uL (130-400); RBC 3.97 10^6/uL (4.36-5.78); RDW 13.8 % (11.8-14.1); RDW-SD 45.6 fL; WBC 5.73 10^3/uL (4.4-10.8)
[2020-04-18 06:52] LABS: Anion Gap 7.3 mmol/L (3-11); BUN 14 mg/dL (7-18); CO2 25.7 mmol/L (21.0-32.0); CREATININE 1.2 mg/dL (0.70-1.30); Calcium 8.7 mg/dL (8.5-10.1); Chloride 106 mmol/L (98-107); Glucose 213 mg/dL (74-106); Magnesium 1.8 mg/dL (1.8-2.4); Potassium 4.2 mmol/L (3.5-5.1); Sodium 139 mmol/L (136-145)
[2020-04-18] MEDS: Budesonide/Formoterol 80/4.5 6.9 GM 60 PUFF INH IH ×2 (07:42→20:50)
[2020-04-18] MEDS: Ferrous Sulfate 325 MG TAB PO ×2 (08:11→20:50)
[2020-04-18] MEDS: Lisinopril 5 MG TAB 2.5 MG PO (08:11)
[2020-04-18] MEDS: Omeprazole 20 MG CAPCR 40 MG PO (08:12)
[2020-04-18] MEDS: Sucralfate 1 GM TAB PO ×3 (08:12→17:03)
[2020-04-18] MEDS: Isosorbide Mononitrate 30 MG TABCR 120 MG PO (08:12)
[2020-04-18] MEDS: Metoprolol CR 100 MG TABCR 150 MG PO (08:12)
[2020-04-18] MEDS: Magnesium Chloride 64 MG TABCR PO ×2 (08:12→20:51)
[2020-04-18] MEDS: Ezetimibe 10 MG TAB PO (08:12)
[2020-04-18] MEDS: Tamsulosin 0.4 MG CAPCR PO (08:13)
[2020-04-18] MEDS: Insulin Aspart 300 UNITS/3 ML PEN SC ×4 (08:13→22:14)
[2020-04-18] MEDS: FLUoxetine 20 MG CAP PO (08:13)
--- NOTE | 2020-04-18 10:29 | W.PM.PROGNOT ---
Date of Service Date of service: 04/18/20 Time of Service: 10:29 Assessment and Plan Assessment and plan (1) Generalized weakness: Start date: 04/18/20 Start time: 10:40 Status: Acute Assessment and plan: Improving, continue PT/OT. He may need higher level of care Continues to fail at home. Accepted at [facility], he can be discharged there tomorrow. (2) UTI (urinary tract infection): Start date: 04/18/20 Start time: 10:41 Status: Ruled-out Assessment and plan: cx with gram positive mixed chapo, he is contaminated will dc IV antibiotics he did receive 2 days ceftriaxone. Qualifiers: Urinary tract infection type: site unspecified Hematuria presence: without hematuria Qualified Code(s): N39.0 - Urinary tract infection, site not specified (3) Paroxysmal atrial fibrillation: Start date: 04/18/20 Start time: 10:41 Status: Chronic Assessment and plan: Likely dilutional with dehydration. Repeat H/H is stable trending up. Hemaoccult stool negative. Will resume eliquis and asa (4) Type 2 diabetes mellitus with complication, with long-term current use of insulin: Start date: 04/18/20 Start time: 10:43 Status: Chronic Assessment and plan: Hold usual medications and get mealtime and nighttime coverage with short acting insulin while hospitalized. Diet as tolerated. above case discusssed with dr. ochoa who is in agreement. Subjective Subjective Patient reports: still having pain Interval history since last seen: Still having back pain, states lidoderm patch and aqua berkley help, imaging still pending, though review of imaging by myself, is not really revealing for any major concern and assessment correlates more with muscular, will use voltaren gel QID during day to help with pain as well. He was accepted by the [facility] and will possibly be discharged there for admission tomorrow as he continues to fail at home. Exam Const General: cooperative, comfortable, no acute distress, frail appearing and ill appearing chronically Nutritional Appearance: overweight Orientation: alert, awake and oriented x3 Eyes Pupils: PERRL EOM: EOM intact bilaterally Neck Thyroid: thyroid normal Lymphatic: no lymphadenopathy noted Chest Chest: normal inspection of the chest Resp Effort & Inspection: normal respiratory effort Auscultation: clear to auscultation bilaterally Cardio Jugular venous pressure: no JVD Rate: regular rate Rhythm: regular rhythm Heart Sounds: S1 normal and S2 normal GI Inspection: normal to inspection Palpation: soft and no hepatosplenomegaly Auscultation: normal bowel sounds General: deferred Back/Spine/Pelvis Back: no CVA tenderness Thoracic/Lumbar Spine: thoracic and lumbar spine normal to inspection Other: tenderness along side of back and paraspine, muscular in nature Skin General skin exam: no rashes or lesions noted Neuro General: patient alert, patient awake and patient oriented x3 Extrem General: normal to inspection, full ROM, no joint enlargement and no clubbing, cyanosis or edema Psych Appearance: disheveled Mental Status: mental status grossly normal Speech and Movement: speech and movement normal Mood: congruent mood Objective Last Vital Signs Temp 36.5 C 04/18/20 07:53 Pulse 69 04/18/20 07:53 Resp 18 04/18/20 07:53 BP 122/73 04/18/20 07:53 Pulse Ox 99 04/18/20 07:53 Laboratory Results - last 24 hr 04/17/20 04/17/20 04/18/20 11:59 Unknown 06:28 WBC RBC Hgb 11.7 L Cancelled Hct 35.0 L Cancelled MCV MCH MCHC RDW Plt Count MPV Immature Gran % Neutrophils % Lymphocytes % Monocytes % Eosinophils % Basophils % Nucleated RBC % Absolute Neutrophils Absolute Lymphocytes Absolute Monocytes Absolute Eosinophils Absolute Basophils Sodium 139 Potassium 4.2 Chloride 106 Carbon Dioxide 25.7 Anion Gap 7.3 BUN 14 Creatinine 1.2 Estimated GFR/1.73 m2 >= 60.00 Glucose 213 H Calcium 8.7 Magnesium 1.8 04/18/20 06:28 WBC 5.73 RBC 3.97 L Hgb 11.9 L Hct 35.7 L MCV 89.9 MCH 30.0 MCHC 33.3 RDW 13.8 Plt Count 215 MPV 10.3 Immature Gran % 0.3 Neutrophils % 60.1 Lymphocytes % 28.3 Monocytes % 8.7 Eosinophils % 2.1 Basophils % 0.5 Nucleated RBC % 0 Absolute Neutrophils 3.44 Absolute Lymphocytes 1.62 Absolute Monocytes 0.50 Absolute Eosinophils 0.12 Absolute Basophils 0.03 Sodium Potassium Chloride Carbon Dioxide Anion Gap BUN Creatinine Estimated GFR/1.73 m2 Glucose Calcium Magnesium
--- NOTE | 2020-04-18 10:35 | PT.INNT ---
PT Notes Visit Reasons: ACUTE KIDNEY INJURY, GENERALIZED WEAKNESS, UTI Pt reports that he does not feel up to PT even just exercises in the chair. He refused PT today.
--- NOTE | 2020-04-18 10:42 | DI.VRAD_ITS ---
PROCEDURE INFORMATION: Exam: XR Lumbosacral Spine, 4 or 5 Views Exam date and time: 04/16/2020 3:40 PM Age: 69 years old Clinical indication: Low back pain TECHNIQUE: Imaging protocol: XR of the lumbosacral spine, 4 or 5 views. COMPARISON: CT CHEST/ABD/PEL W 03/20/2020 10:05 AM FINDINGS: Bones/joints: Endplate osteophyte formation in the lumbar spine. Degenerative arthritis in the lower lumbar facets. Soft tissues: Unremarkable. Vasculature: Vascular calcifications. 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 Dictated and Authenticated by: Dionna Rodriguez MD. Ordering:AIDAN Aviles MD
--- NOTE | 2020-04-18 10:47 | CMPROGNOTE_ITS ---
- If Service Date Differs Date of service: 04/18/20 Time of Service: 10:47 Care Management Progress Note S/O: Sher is sitting in a chair watching television when CM comes to meet with him. He reports he is feeling better but continues to have back pain. CM discusses discharge plan with him and he states he is unable to manage at home and expresses his desire to go to [facility] in [place]. The hope is that he will be able to transfer to [facility] tomorrow. CM will continue to follow. A: Sher is a 69 year old male admitted to [facility] on 04/16/2020 for acute kidney injury, generalized weakness, and a UTI. P: Plan remains for Sher to discharge to [facility] once insurance authorization has been obtained. Transfer will likely occur on Sunday or Sunday if Sher is medically cleared by provider. He will follow up with the facility provider and plan of care as directed. CM will continue to support Sher and his discharge planning needs.
[2020-04-18] MEDS: Normal Saline 250 ML IV (11:09)
[2020-04-18] MEDS: Diclofenac 1% Gel 100 GM TUBE TP (11:09)
[2020-04-18] MEDS: Acetaminophen 325 MG TAB 650 MG PO (11:10)
[2020-04-18] MEDS: Normal Saline Flush 10 ML SYR IVP ×2 (11:33→19:22)
--- NOTE | 2020-04-18 12:45 | RT.EKG_ITS ---
APPROVED REPORT Exam: Resting ECG Patient Location: I HR:72 bpm ECG Measurements Heart Rate 72 AXIS CO 181 P 100 QRSd 147 QRS -29 QT 434 T 121 QTc 475 Conclusion Sinus rhythm...normal P axis, V-rate 60- 99 Right bundle branch block...QRSd>120, terminal axis(90,270) Inferior infarct, old...Q >35mS, II III aVF
[2020-04-18] MEDS: Omnipaque 350 MG/ML 100 ML BTL IJ (13:05)
[2020-04-18] MEDS: Normal Saline - Diluent 50 ML VIAL IV (13:06)
[2020-04-18] MEDS: Normal Saline 250 ML 500 ML IV (13:10)
[2020-04-18 13:17] LABS: Lactate 1.2 mmol/L (0.6-1.4)
--- NOTE | 2020-04-18 13:30 | DI.CT_ITS ---
EXAM: CT CHEST PE CTA CLINICAL HISTORY: r/o PE, SOB. TECHNIQUE: Imaging Protocol: Axial CT angiography was performed with multi-slice acquisition and mu lti-planar and/or 3D reconstructions. CONTRAST MATERIAL: Intravenous: Omnipaque 350 Contrast volume:100 mL COMPARISON: CT CT CHEST PE CTA from 11/09/[address] THORAX ABDOMEN CTA from 04/13/2020 FINDINGS: Tracheobronchial tree: Patent where visualized. Pulmonary parenchyma: No consolidation or dominant measurable mass. No architectural distortion. Pulmonary Arteries: No evidence of filling defect to suggest pulmonary emboli. Mediastinum and Maryanne: No dominant adenopathy or fluid collection. Visualized thyroid gland: Unremarkable. Pleura: No effusion or pneumothorax. Heart: Mild cardiomegaly. Coronary artery calcifications are present. No pericardial effusion. Aorta: Thoracic aorta non-dilated. There is a stent in the ascending aorta. Atherosclerosis. No johnathan dence of dissection. Upper abdomen: Unremarkable. Tubes, Catheters, and Lines: Transvenous pacemaker is in place. Soft tissues: Unremarkable. Bones: Degenerative changes are present.Sternal wires are in place. IMPRESSION: No evidence of pulmonary embolism, thoracic aortic dissection or aneurysm. RADIATION DOSE DELIVERED: 500.69mGy.cm Total DLP DATA REPOSITORY: All CT scans at this facility are submitted to the National Radiology Data Registry (NRDR) Dose Index Registry (DIR) with the [employer] (ACR). RADIATION OPTIMIZATION: All CT scans at this facility use at least one of these dose optimization te chniques: automated exposure control; mA and/or kV adjustment per patient size (includes targeted exa ms where dose is matched to clinical indication); or iterative reconstruction.
--- NOTE | 2020-04-18 13:46 | DI.VRAD_ITS ---
PROCEDURE INFORMATION: Exam: CT Angiography Chest With Contrast Exam date and time: 04/18/2020 12:52 PM Age: 69 years old Clinical indication: Shortness of breath TECHNIQUE: Imaging protocol: Computed tomographic angiography of the chest with contrast. 3D rendering (Not supervised by radiologist): MIP and/or 3D reconstructed images were created by the technologist. Radiation optimization: All CT scans at this facility use at least one of these dose optimization techniques: automated exposure control; mA and/or kV adjustment per patient size (includes targeted exams where dose is matched to clinical indication); or iterative reconstruction. Contrast material: OMNIPAQUE 350; Contrast volume: 100 ml; Contrast route: INTRAVENOUS (IV); COMPARISON: CT THORAX ABDOMEN CTA 04/13/2020 2:31 AM FINDINGS: Tubes, catheters and devices: Pacemaker. Pulmonary arteries: Normal. No pulmonary emboli. Aorta: Unremarkable. No aortic aneurysm. No aortic dissection. Lungs: Unremarkable. No consolidation. No masses. Pleural spaces: Unremarkable. No pneumothorax. No pleural effusion. Heart: Aortic valve replacement. Mild cardiac enlargement. Lymph nodes: Unremarkable. No enlarged lymph nodes. Bones/joints: Hypertrophic changes in the thoracic spine. Sternotomy. Soft tissues: Calcified pulmonary granulomata. IMPRESSION: 1. No pulmonary embolism identified. 2. Cardiomegaly postoperative changes in the heart. Dictated and Authenticated by: Dionna Rodriguez MD. Ordering:AIDAN Aviles MD
[2020-04-18] MEDS: Normal Saline 500 ML IV (16:12)
[2020-04-18 16:21] LABS: HCT 32.1 % (40.0-50.0); HGB 10.8 g/dL (13.5-17.5)
[2020-04-18 16:36] LABS: Troponin I < 0.05 ng/mL (<0.06)
[2020-04-18] MEDS: Normal Saline 500 ML 999 ML IV (17:25)
[2020-04-18] MEDS: Lidocaine 5% Patch 1 PATCH TP (17:57)
[2020-04-18] MEDS: Normal Saline 1,000 ML 100 ML IV (17:58)
--- NOTE | 2020-04-18 18:58 | NUR.NOTE ---
Nursing Note: At 1840 on 04/18/20, this RN gave report on the pt. to DINORA Crenshaw. At 1858 on 04/18/20, pt. was transferred from Med/Surg to the ICU per MD order. RN will reassess as necessary.
[2020-04-18] MEDS: Atorvastatin 40 MG TAB 80 MG PO (20:50)
[2020-04-18] MEDS: Pantoprazole 40 MG VIAL IVP (20:51)
[2020-04-18] MEDS: Gabapentin 400 MG CAP PO (22:08)
[2020-04-18] MEDS: Mirtazapine 15 MG TAB PO (22:09)
[2020-04-18] MEDS: Levothyroxine 150 MCG TAB PO (22:09)
[2020-04-18] MEDS: rOPINIRole 1 MG TAB 2 MG PO (22:09)
[2020-04-18 22:10] LABS: HCT 33.3 % (40.0-50.0)
[2020-04-19] VITALS (86 sets, daily range): BP systolic 98–196; BP diastolic 45–99; PULSE 63–85; RESP 7–24; TEMP 36.2–37.7; O2SAT 88–100
[2020-04-19] MEDS: Normal Saline 1,000 ML 100 ML IV (04:00)
[2020-04-19] MEDS: Lidocaine Patch Removal 1 EACH TP (06:28)
[2020-04-19 07:09] LABS: Abs Immature Grans 0.06 10^3/uL (0.0-0.06); Absolute Basophil Count 0.07 10^3/uL (0.0-0.2); Absolute Lymphocyte Count 1.41 10^3/uL (1.2-3.4); Absolute Monocyte Count 1.01 10^3/uL (0.1-0.8); Basophils % 0.7; HCT 33.7 % (40.0-50.0); HGB 11.2 g/dL (13.5-17.5); Immature Grans % 0.6; Lymphocytes % 13.5; MCHC 33.2 % (32.0-36.0); MCV 90.3 fL (80-95); Monocytes % 9.7; Neutrophils % 74.5; Nucleated RBC 0 %; Platelet Count 193 10^3/uL (130-400); RBC 3.73 10^6/uL (4.36-5.78); RDW-SD 46.5 fL; WBC 10.45 10^3/uL (4.4-10.8)
[2020-04-19 07:11] LABS: Absolute Neutrophil Count 7.79 10^3/uL (1.2-6.7)
[2020-04-19 07:22] LABS: Anion Gap 10.5 mmol/L (3-11); BUN 18 mg/dL (7-18); CO2 21.5 mmol/L (21.0-32.0); CREATININE 1.3 mg/dL (0.70-1.30); Calcium 8.4 mg/dL (8.5-10.1); Chloride 106 mmol/L (98-107); Estimated GFR 55.06 (mL/min/1.73m2); Glucose 272 mg/dL (74-106); Sodium 138 mmol/L (136-145)
[2020-04-19] MEDS: Budesonide/Formoterol 80/4.5 6.9 GM 60 PUFF INH IH ×2 (08:00→22:00)
--- NOTE | 2020-04-19 08:21 | W.PM.PROGNOT ---
Date of Service Date of service: 04/19/20 Time of Service: 11:31 Assessment and Plan Assessment and plan (1) Hypotension: Status: Resolved Assessment and plan: Likely a combination of decreased blood volume due to GI bleeding as well as effect of all of the BP meds at once. Required pressors overnight, but this has resolved now. At this point, I think the patient is stable to undergo an EGD, but should be kept in the ICU. (2) Symptomatic anemia: Status: Acute Assessment and plan: The patient did drop his hemoglobin by at least 3 points and reports hematemesis at home and in the ED. Patient's sister confirms hematemesis at home. He is hemoccult positive. He was already being planned for an EGD as an outpatient, but given his presentation now, this should be done as an inpatient. General surgery is consulted, and I discussed the case with Dr Mckenzie. He is on IV PPI bid, carafate, and he is NPO. Keep in ICU. No indication for blood transfusion at this time. (3) Upper GI bleeding: Status: Acute Assessment and plan: As above (4) Epigastric pain: Status: Acute Assessment and plan: As above. For EGD hopefully today. (5) Generalized weakness: Status: Acute Assessment and plan: likely related to symptomatic anemia in addition to the rest of the chronic problems. Once he feels better, should work with PT. (6) Paroxysmal atrial fibrillation: Status: Chronic Assessment and plan: Paroxysmal. Does have a h/o of CVA, so ideally he should be anticoagulated as soon as this is safe. For now, given his anemia and reports of hematemesis, anticoagulation is on hold. He is receiving metoprolol IV. (7) UTI (urinary tract infection): Status: Ruled-out Assessment and plan: cx with gram positive mixed chapo, he is contaminated will dc IV antibiotics he did receive 2 days ceftriaxone. Qualifiers: Urinary tract infection type: site unspecified Hematuria presence: without hematuria Qualified Code(s): N39.0 - Urinary tract infection, site not specified (8) Type 2 diabetes mellitus with complication, with long-term current use of insulin: Status: Chronic Assessment and plan: SSI whlie NPO. (9) DVT prophylaxis: Status: Acute Assessment and plan: Chemical DVT ppx is contraindicated given GI bleeding. TEDs/SCDs. (10) Discharge planning issues: Status: Acute Assessment and plan: DNR/DNI Keep in ICU. Palliative care consulted. Total Critical Care Time 40 minutes. Subjective Subjective Interval history since last seen: Moved to the ICU overnight for pressors as had remained hypotensive despite IVF. Received norepi - but off of pressors since 6:30 am. Current bp 150/71. Weak. Constantly nauseated. No vomiting. States was vomiting blood for 2 days at home and that he had hematemesis in the ED. Endorses epigastric pain on exam and substernal discomfort that feels like gas or heartburn. Denies shortness of breath, dizziness. No vomiting. Heme +. UOP 1100 cc/12 hrs Room air now; Sleep with CPAP on Exam Narrative Exam Narrative: General: Pleasant elderly male, laying on his left side in bed, responsive, appears very pale and cold; he is wrapped in multiple blankets HEENT: EOMI, MMM Heart: RRR, no m/r/g Lungs: Diminished breath sounds B Abdomen: soft, tender in epigastrium, nondistended Extremities: no edema BLEs Objective Last Vital Signs Temp 36.2 C L 04/19/20 03:59 Pulse 75 04/19/20 07:30 Resp 18 04/19/20 07:30 BP 121/78 04/19/20 07:30 Pulse Ox 98 04/19/20 07:30 Laboratory Results - last 24 hr 04/18/20 04/18/20 04/18/20 13:09 16:15 16:15 WBC RBC Hgb 10.8 L Hct 32.1 L MCV MCH MCHC RDW Plt Count MPV Immature Gran % Neutrophils % Lymphocytes % Monocytes % Eosinophils % Basophils % Nucleated RBC % Absolute Neutrophils Absolute Lymphocytes Absolute Monocytes Absolute Eosinophils Absolute Basophils VBG Lactate 1.2 Sodium Potassium Chloride Carbon Dioxide Anion Gap BUN Creatinine Estimated GFR/1.73 m2 Glucose Calcium Troponin I < 0.05 04/18/20 04/19/20 04/19/20 22:05 06:20 06:20 WBC 10.45 D RBC 3.73 L Hgb 11.0 L 11.2 L Hct 33.3 L 33.7 L MCV 90.3 MCH 30.0 MCHC 33.2 RDW 14.0 Plt Count 193 MPV 11.0 Immature Gran % 0.6 Neutrophils % 74.5 Lymphocytes % 13.5 Monocytes % 9.7 Eosinophils % 1.0 Basophils % 0.7 Nucleated RBC % 0 Absolute Neutrophils 7.79 H Absolute Lymphocytes 1.41 Absolute Monocytes 1.01 H Absolute Eosinophils 0.10 Absolute Basophils 0.07 VBG Lactate Sodium 138 Potassium 4.0 Chloride 106 Carbon Dioxide 21.5 Anion Gap 10.5 BUN 18 Creatinine 1.3 Estimated GFR/1.73 m2 55.06 Glucose 272 H Calcium 8.4 L Troponin I
[2020-04-19] MEDS: Pantoprazole 40 MG VIAL IVP ×2 (08:56→22:06)
[2020-04-19] MEDS: Sucralfate 1 GM TAB PO ×2 (08:57→16:44)
[2020-04-19] MEDS: Insulin Aspart 300 UNITS/3 ML PEN SC ×4 (08:57→23:32)
[2020-04-19] MEDS: Magnesium Chloride 64 MG TABCR PO ×2 (09:10→22:00)
[2020-04-19] MEDS: Metoclopramide 10 MG TAB PO (09:11)
--- NOTE | 2020-04-19 09:58 | PDOC.CMPRO ---
- If Service Date Differs Date of service: 04/19/20 Time of Service: 09:58 Care Management Progress Note S/O: Sher was lying in bed in the ICU hugging his blankets under his chin when CM met with him. He was moved to the ICU yesterday when his blood pressures dropped to the point of requiring norepinephrine. When asked how he was feeling today, he told CM not good. He stated that his stomach hurt and that he was nauseated. Sher shared that he might be going for a test later . He was seen by Dr. Mckenzie this morning who plans to perform an EGD later today or tomorrow per nursing, to rule out an upper GI bleed. When questioned, Sher reaffirmed his desire to go to the [facility] when he is medically stable. This information was shared with Maryuri from [facility]. A tentative transfer date is set for Sunday04/21/20. A: Sher is a 69 year old male admitted to [facility] on 04/16/2020 for acute kidney injury, generalized weakness, and a UTI. P: Plan remains for Sher to discharge to [facility] once medically stable. Transfer will likely occur on Sunday, although it could be as soon as tomorrow if the EGD is done later today and if Sher is medically cleared by provider. He will follow up with the facility provider and plan of care as directed. CM will continue to support Sher and his discharge planning needs.
--- NOTE | 2020-04-19 10:18 | SCONE_ITS ---
Date of service: 04/19/20 Time of Service: 10:18 Assessment and Plan Assessment and plan (1) Esophagitis: Status: Acute Assessment and plan: He does have a microcytic hypochromic anemia and with a thickened distal esophagus esophagitis versus esophageal malignancy however the likely diagnosis. He is a DNR/DNI and if he does have malignancy I am not sure how far he be willing or able to go. We will try to get an upper GI endoscopy done on him History of Present Illness History of Present Illness Chief Complaint: Question upper GI bleed Narrative: 69-year-old gentleman was recently admitted with failure to thrive and generalized weakness. At the time he was found to be anemic with microcytic indices and a CAT scan showed thickening of the GE junction. He complained of nausea with some epigastric distress. He was discharged and planned to be scoped as an outpatient however he returned to the hospital after a fall. His stool was noted to be brown and heme positive and he is anorexic and complains of some epigastric distress. He had an episode of hypotension yesterday which was thought to be blood pressure medication related and was on norepinephrine but currently his blood pressure and pulse are normal [facility] Medical History Abnormal finding of kidney Anxiety with depression Aortic valve replaced Back pain CAD (coronary artery disease) COPD (chronic obstructive pulmonary disease) CVA (cerebral vascular accident) Diabetic neuropathy DM (diabetes mellitus) GERD (gastroesophageal reflux disease) H/O: HTN (hypertension) Hematuria HFrEF (heart failure with reduced ejection fraction) History of bloody stools HTN (hypertension) Hx of fall Hyperlipidemia Hypothyroidism Hypothyroidism (acquired) Insomnia Memory impairment Obesity IVETTE (obstructive sleep apnea) IVETTE on CPAP Pacemaker Paroxysmal atrial fibrillation Passive suicidal ideations Perforated tympanic membrane Polypharmacy Proteinuria Rash, skin Renal insufficiency Sick sinus syndrome Sinus node dysfunction Tinea cruris Surgical History Coronary Artery Bypass Gaft (CABG) Coronary Stent CABGx4 H/O carotid endarterectomy Pacemaker Replacement of aortic valve Family History Other Cancer Heart disease Social History Smoking/Tobacco Use Status: Never Smoking risk assessment performed?: Yes Alcohol Intake: former Drug use: Never Substance use type: does not use Details: Pt reports no alcohol since his heart attack 1995 Household members: none Housing: other Details: [facility] Number of Children: 2 current occupation: Lives at [employer]. Disabled since . Current gender identity: male Seatbelt use: always Do you feel safe at home: Yes (patient states he would feel safer with wheelchair) Do you feel safe in your relationship?: Yes Additional Social history: lives alone, area on [place] comes in to assiste pt. Reports safety issue regarding leg giving out. Exam Other: Abdomen is obese there is mild epigastric tenderness without guarding Results Last Vital Signs Temp 98.8 F 04/19/20 08:00 Pulse 75 04/19/20 07:30 Resp 18 04/19/20 07:30 BP 150/71 H 04/19/20 08:00 Pulse Ox 98 04/19/20 07:30 Labs Result diagrams: 04/19/20 06:20 04/19/20 06:20 Labs: Laboratory Results - last 24 hr 04/18/20 04/18/20 04/18/20 13:09 16:15 16:15 WBC RBC Hgb 10.8 L Hct 32.1 L MCV MCH MCHC RDW Plt Count MPV Immature Gran % Neutrophils % Lymphocytes % Monocytes % Eosinophils % Basophils % Nucleated RBC % Absolute Neutrophils Absolute Lymphocytes Absolute Monocytes Absolute Eosinophils Absolute Basophils VBG Lactate 1.2 Sodium Potassium Chloride Carbon Dioxide Anion Gap BUN Creatinine Estimated GFR/1.73 m2 Glucose Calcium Troponin I < 0.05 04/18/20 04/19/20 04/19/20 22:05 06:20 06:20 WBC 10.45 D RBC 3.73 L Hgb 11.0 L 11.2 L Hct 33.3 L 33.7 L MCV 90.3 MCH 30.0 MCHC 33.2 RDW 14.0 Plt Count 193 MPV 11.0 Immature Gran % 0.6 Neutrophils % 74.5 Lymphocytes % 13.5 Monocytes % 9.7 Eosinophils % 1.0 Basophils % 0.7 Nucleated RBC % 0 Absolute Neutrophils 7.79 H Absolute Lymphocytes 1.41 Absolute Monocytes 1.01 H Absolute Eosinophils 0.10 Absolute Basophils 0.07 VBG Lactate Sodium 138 Potassium 4.0 Chloride 106 Carbon Dioxide 21.5 Anion Gap 10.5 BUN 18 Creatinine 1.3 Estimated GFR/1.73 m2 55.06 Glucose 272 H Calcium 8.4 L Troponin I
[2020-04-19] MEDS: Ondansetron 4 MG/2 ML VIAL IVP (10:42)
[2020-04-19] MEDS: Metoprolol 5 MG/5 ML VIAL 2.5 MG IVP ×2 (10:42→15:55)
[2020-04-19] MEDS: Lactated Ringers 1,000 ML 30 ML IV (12:58)
--- NOTE | 2020-04-19 13:14 | STOM_PTH ---
PATIENT: JULIO VARGAS LOC: ICU U#:[id number] AGE/SX: 69/M ROOM: ICU.220 RE04/17/[address]: Dameon Gonzalez : 1950 BED: A DIS: 04/27/2020 SPEC #: [id number] RECD: 04/19/20 17:39 STATUS: RYLIE REQ #: [id number] PAWEL: 04/19/20 13:[address]: Dameon Gonzalez DEPT: Surgical Specimen RECD BY: Sadie Naqvi ENTERED: 04/19/20 17:40 SP TYPE: STOMACH OTHR DR[facility] T[facility]: 1 - STOMACH BIOPSY Procedures: GROSS AND MICRO LEVEL 4 Comments: [id number]
--- NOTE | 2020-04-19 13:20 | ENDO_ITS ---
Endoscopy Report DATE OF PROCEDURE: 04/19/20 PRE-OP DIAGNOSIS: n PROCEDURE: Upper GI endoscopy SURGEON: Zachary Mckenzie ANESTHESIA: MAC PATHOLOGY: other (Proximal stomach lesion) COMPLICATIONS: None DISPOSITION: ICU INDICATIONS: 69-year-old gentleman with heme positive stool nausea and a thickened area in his proximal stomach on CT scan FINDINGS: A 3 cm area of villous type change in the proximal esophagus inflammatory versus neoplastic biopsies pending photos taken PROCEDURE DESCRIPTION: With the patient in the left lateral decubitus position and under sedation the Olympus 9 mm flexible endoscope was introduced orally and into the esophagus. The scope was advanced all the way to the second portion of the duodenum. Second portion of the duodenum was inspected and was found to be normal. Scope was withdrawn into the first portion and the duodenal bulb was inspected no ulceration was noted. Scope was withdrawn back into the stomach the prepyloric area was normal no prepyloric inflammatory changes were noted a C -turn was performed the incisura was normal with no evidence of ulceration.. U- turn was performed the GE junction was identified and inspected from below no lesions were noted at the GE junction. In the proximal stomach along the greater curvature however there was a 3 cm area of villous-like change in the stomach mucosa. This was soft with inflammatory change. This area was biopsied. No firmness was noted in this area. The scope was then withdrawn through the GE junction. The Z-line was slightly irregular however no lesions were noted GE junction. No gross esophagitis was noted. No strictures were noted. The mid and proximal esophagus were normal. Patient taught procedure well
[2020-04-19] MEDS: Normal Saline 1,000 ML 150 ML IV ×2 (16:00→23:28)
[2020-04-19] MEDS: Metoprolol 5 MG/5 ML VIAL IVP ×3 (16:45→22:07)
[2020-04-19] MEDS: rOPINIRole 1 MG TAB 2 MG PO (21:59)
[2020-04-19] MEDS: Levothyroxine 150 MCG TAB PO (21:59)
[2020-04-19] MEDS: Gabapentin 400 MG CAP PO (22:00)
[2020-04-19] MEDS: Lidocaine 5% Patch 1 PATCH TP (22:05)
[2020-04-19] MEDS: Normal Saline Flush 10 ML SYR IVP (22:06)
[2020-04-19] MEDS: Enalapril 5 MG TAB 2.5 MG PO (23:33)
[2020-04-20] VITALS (28 sets, daily range): BP systolic 99–153; BP diastolic 53–76; PULSE 72–93; RESP 13–21; TEMP 36.6–37.6; O2SAT 96–99
--- NOTE | 2020-04-20 | DI.RAD_ITS ---
EXAM: XR CERVICAL SPINE COMP 4-5V CLINICAL HISTORY: fall at home, reports neck weakness. TECHNIQUE: 2D digital imaging was performed. COMPARISON: No exams were available for comparison FINDINGS: The odontoid is intact. The lateral masses are well aligned. There is normal alignment of the cervi hillary spine. Endplate osteophytes are seen at C4-5 through C6-C7. Neural foraminal narrowing is seen on the right at C5-C6. No acute fracture or subluxation is present. The prevertebral soft tissues a re unremarkable. IMPRESSION: No acute fracture or subluxation in the cervical spine. DATA REPOSITORY: RADIATION DOSE DELIVERED:
[2020-04-20] MEDS: Metoprolol 5 MG/5 ML VIAL IVP ×2 (05:48→12:03)
[2020-04-20] MEDS: Lidocaine Patch Removal 1 EACH TP (05:51)
[2020-04-20] MEDS: Insulin Aspart 300 UNITS/3 ML PEN SC ×4 (05:51→21:04)
[2020-04-20] MEDS: Normal Saline 1,000 ML 150 ML IV ×2 (06:18→15:22)
[2020-04-20 06:55] LABS: Abs Immature Grans 0.12 10^3/uL (0.0-0.06); Absolute Basophil Count 0.06 10^3/uL (0.0-0.2); Absolute Lymphocyte Count 1.11 10^3/uL (1.2-3.4); Basophils % 0.4; Eosinophils % 0.1; HCT 35.3 % (40.0-50.0); HGB 11.7 g/dL (13.5-17.5); Immature Grans % 0.8; Lymphocytes % 7.6; MCH 29.7 pg (27.0-33.0); MCHC 33.1 % (32.0-36.0); MCV 89.6 fL (80-95); MPV 10.2 fL (8.0-11.0); Monocytes % 8.2; Neutrophils % 82.9; Nucleated RBC 0 %; Platelet Count 223 10^3/uL (130-400); RBC 3.94 10^6/uL (4.36-5.78); RDW 13.7 % (11.8-14.1); WBC 14.67 10^3/uL (4.4-10.8)
[2020-04-20 07:00] LABS: Absolute Eosinophil Count 0.01 10^3/uL (0.0-0.7); Absolute Neutrophil Count 12.16 10^3/uL (1.2-6.7)
[2020-04-20 07:13] LABS: Anion Gap 10.8 mmol/L (3-11); BUN 11 mg/dL (7-18); CO2 21.2 mmol/L (21.0-32.0); Calcium 8.5 mg/dL (8.5-10.1); Chloride 103 mmol/L (98-107); Glucose 210 mg/dL (74-106); Magnesium 1.4 mg/dL (1.8-2.4); Potassium 3.8 mmol/L (3.5-5.1); Sodium 135 mmol/L (136-145)
[2020-04-20] MEDS: Sucralfate 1 GM TAB PO ×3 (08:01→17:17)
[2020-04-20] MEDS: Pantoprazole 40 MG VIAL IVP ×2 (08:01→19:26)
--- NOTE | 2020-04-20 08:20 | W.PM.PROGNOT ---
Date of Service Date of service: 04/20/20 Time of Service: 12:42 Assessment and Plan Assessment and plan (1) Upper GI bleeding: Status: Resolved Assessment and plan: Hematemesis at home, heme + here. S/p EGD 04/19/[address] Mckenzie: area of villous change in the proximal stomach which could have bled but was not actively bleeding at the time of the exam. Biopsies are pending. Continue PPI and carafate. Tolerating clears. Advance diet to soft bland tonight. Continue to monitor H&H. (2) Symptomatic anemia: Status: Acute Assessment and plan: As above. Not requiring transfusion. Ok to transfer out of ICU. (3) Hypotension: Status: Resolved Assessment and plan: Likely a combination of decreased blood volume due to GI bleeding as well as effect of all of the BP meds at once. Not requiring pressors at this time. Ok to transfer out of ICU. (4) Epigastric pain: Status: Resolved Assessment and plan: As above. (5) Generalized weakness: Status: Acute Assessment and plan: Check UA again as now has a leucocytosis. PT C/s. (6) Paroxysmal atrial fibrillation: Status: Chronic Assessment and plan: Paroxysmal. Does have a h/o of CVA, so ideally he should be anticoagulated as soon as this is safe. Continue to hold anticoagulation. Can resume PO metoprolol. (7) UTI (urinary tract infection): Status: Ruled-out Assessment and plan: Given new leucocytosis, repeat UA today. Qualifiers: Urinary tract infection type: site unspecified Hematuria presence: without hematuria Qualified Code(s): N39.0 - Urinary tract infection, site not specified (8) Type 2 diabetes mellitus with complication, with long-term current use of insulin: Status: Chronic Assessment and plan: Continue SSI. (9) Neck muscle weakness: Status: Acute Assessment and plan: XR c-spine. PT consult (10) DVT prophylaxis: Status: Acute Assessment and plan: Chemical DVT ppx is contraindicated given GI bleeding. TEDs/SCDs. (11) Discharge planning issues: Status: Acute Assessment and plan: DNR/DNI Transfer out of ICU. Palliative care consulted. Subjective Subjective Interval history since last seen: Mr Hinkle states he feels better today but is tired. EGD yesterday: area of villous change in the proximal stomach - soft inflammatory, friable, ?malignancy. This was not actively bleeding and was biopsied. He requests a neck brace for neck weakness - can't hold his neck up. He states he used to have to wear a brace for this before, but has lost it. His neck weakness is worse since his fall at home. On clears. No dizziness, chest pain, shortness of breath, nausea, abdominal pain. Just feels tired. Afebrile. Not requiring o2. Slept on CPAP. BP 140s now. Needed vasotec overnight. Poor IV access. ?midline. Exam Narrative Exam Narrative: General: Pleasant elderly male, sitting up in bed, looks better - pink coloration to the face HEENT: EOMI, MMM, chronic facial droop Heart: RRR, no m/r/g Lungs: Diminished breath sounds B Abdomen: soft, nontender, nondistended Extremities: no edema BLEs Objective Last Vital Signs Temp 36.6 C 04/20/20 04:25 Pulse 81 04/20/20 06:00 Resp 17 04/20/20 06:00 BP 152/76 H 04/20/20 06:00 Pulse Ox 98 04/20/20 06:00 Laboratory Results - last 24 hr 04/20/20 04/20/20 06:10 06:10 WBC 14.67 H D RBC 3.94 L Hgb 11.7 L Hct 35.3 L MCV 89.6 MCH 29.7 MCHC 33.1 RDW 13.7 Plt Count 223 MPV 10.2 Immature Gran % 0.8 Neutrophils % 82.9 Lymphocytes % 7.6 Monocytes % 8.2 Eosinophils % 0.1 Basophils % 0.4 Nucleated RBC % 0 Absolute Neutrophils 12.16 H Absolute Lymphocytes 1.11 L Absolute Monocytes 1.20 H Absolute Eosinophils 0.01 Absolute Basophils 0.06 Sodium 135 L Potassium 3.8 Chloride 103 Carbon Dioxide 21.2 Anion Gap 10.8 BUN 11 D Creatinine 1.0 Estimated GFR/1.73 m2 >= 60.00 Glucose 210 H Calcium 8.5 Magnesium 1.4 L
--- NOTE | 2020-04-20 08:47 | DI.RAD_ITS ---
EXAM: XR PORTABLE CHEST AP CLINICAL HISTORY: new leucocytosis, suspected aspiration TECHNIQUE: 2D digital imaging was performed. COMPARISON: CR,XR XR PORTABLE CHEST AP from 11/08/2019 CR XR CHEST 2V PA LATERAL from 02/18/2020 FINDINGS: MEDIASTINUM: Normal. HEART: There is again seen an aortic stent. The transvenous pacemaker is stable in position. The pa tient is status post CABG. PULMONARY VASCULATURE: Normal. LUNGS: Clear. PLEURAL SPACE: No pleural effusion or pneumothorax. BONE:Within normal limits for the patient's age. OTHER FINDINGS:Normal. IMPRESSION: No acute pulmonary findings. DATA REPOSITORY: RADIATION DOSE DELIVERED:
[2020-04-20] MEDS: Magnesium Chloride 64 MG TABCR PO ×2 (08:50→21:09)
[2020-04-20] MEDS: MAGNESIUM SULFATE 4 GM/100 ML BAG IVPB (09:23)
[2020-04-20] MEDS: Budesonide/Formoterol 80/4.5 6.9 GM 60 PUFF INH IH ×2 (10:07→21:09)
--- NOTE | 2020-04-20 10:21 | PDOC.CMPRO ---
- If Service Date Differs Date of service: 04/20/20 Time of Service: 10:21 Care Management Progress Note S/O: Sher was lying in bed dozing when CM met with him. He opened his eyes and responded to CM's greeting but stated in a very soft voice that he is not doing well at all. He could not pinpoint what was wrong except to say that he is very, very tired and just can't stay awake. CM informed him that she has been updating his sons and Sher expressed gratitude for that. He shared that he does not feel able to talk to anyone right now. Per provider, A 3 cm area of villous type change in the proximal esophagus inflammatory versus neoplastic was identified during the EGD yesterday and this was biopsied. In reviewing Sher's past hospitalizations, it appears that he has lost at least 26 Kg (58 lbs) since August,. A: Sher is a 69 year old male admitted to [facility] on 04/16/2020 for acute kidney injury, generalized weakness, and a UTI. P: Plan remains for Sher to discharge to [facility] once medically stable. Transfer will likely occur on Sunday, although it will depend on his clinical course. He will follow up with the facility provider and plan of care as directed. CM will continue to support Sher and his discharge planning needs.
--- NOTE | 2020-04-20 13:15 | W.DIABETESNO ---
Date of service: 04/20/20 Time of Service: 13:15 Diabetes Note NOTE: Attempted to meet with Sher today again, sleeping. Nursing reports very sleepy and not engaging as typically has been at previous admissions. A1c: 10.4% (04/16/20) indicating uncontrolled DM. EGD indicates possible esophageal cancer, biopsy pending. PO intake was excellent when first admitted, has been NPO x 2 days for testing. At high nutritional risk in view of significant weight loss in last 2 months, poorly controlled Dm and decreased ability to care for self prior to admission. Will continue to follow. Time Spent in Nutritional Counseling and Treatment: 0
[2020-04-20 13:22] LABS: Bilirubin Negative (Negative); Blood Moderate (Negative); Clarity Clear (Clear); Glucose 500 mg/dL (Negative); Ketones 40 mg/dL (Negative); Leukocyte Esterase Negative (Negative); Nitrite Negative (Negative); Specific Gravity >= 1.030 (1.005-1.025); Urobilinogen 0.2 EU/dL (Up TO 0.2); pH 5.5 (5-8)
[2020-04-20 13:38] LABS: Bacteria Negative HPF (Negative); C & S Indicated? No; Casts 0-2 Coarse Granular LPF (Negative); Crystals Few Amorphous HPF (Negative); Epithelial Cells Negative HPF (Negative); Mucus Trace (Negative); WBC 0-2 HPF (0-5)
--- NOTE | 2020-04-20 14:45 | PHACLINREV_ITS ---
Pharmacy Admission Review - Admission Clinical Review (Last Reviewed 04/16/20 @ 05:21 by Dameon Gonzalez) Neck muscle weakness (Acute) Symptomatic anemia (Acute) Discharge planning issues (Acute) DVT prophylaxis (Acute) Generalized weakness (Acute) Esophagitis (Acute) No Known Allergies Allergy (Verified 04/16/20 03:51) Height 5 ft 8 in Weight 108.3 kg - Renal Dosing Renal Dosing: BUN 11 mg/dL (7-18) D 04/20/20 06:10 Creatinine 1.0 mg/dL (0.70-1.30) 04/20/20 06:10 Medications needing adjustments: Reviewed (Crcl ~85.6 mL/min using adjusted body weight, current meds okay) - Anticoagulation Anticoagulation: Hgb 11.7 g/dL (13.5-17.5) L 04/20/20 06:10 Hct 35.3 % (40.0-50.0) L 04/20/20 06:10 Plt Count 223 10^3/uL (130-400) 04/20/20 06:10 Creatinine 1.0 mg/dL (0.70-1.30) 04/20/20 06:10 DVT Prohphylaxis: N/A Therapeutic Anticoagulation: Reviewed (apixaban and aspirin held due to upper GI bleed and symptomatic anemia) - Opiate Usage Evaluate Pain Scale/Pains Meds: N/A - Relevant Labs Sodium 135 mmol/L (136-145) L 04/20/20 06:10 Potassium 3.8 mmol/L (3.5-5.1) 04/20/20 06:10 Chloride 103 mmol/L (98-107) 04/20/20 06:10 Magnesium 1.4 mg/dL (1.8-2.4) L 04/20/20 06:10 Electrolytes, C-Reactive P, ESR: Reviewed (IV mag replacement given today) - DM Control DM Control: Glucose 210 mg/dL (74-106) H 04/20/20 06:10 Hemoglobin A1c 10.4 % (<5.7) H 04/16/20 03:00 Finger Stick Blood Glucose 186 Insulin Dosing: Intervened (Sliding scale aspart ordered, no long acting insulin ordered (pt is on levemir at home). Pt was NPO but now has diet ordered. I asked the provider and she is aware/monitoring.) - Heart Failure/IN Heart Failure/IN: Troponin I < 0.05 ng/mL (<0.06) 04/18/20 16:15 EF%, CITLALY's, B-Blockers, Diuretics: Reviewed - BP Control BP Control: Blood Pressure 133/67 Blood Pressure 152/76 Blood Pressure 153/68 Blood Pressure 153/68 Blood Pressure 140/66 Blood Pressure 149/72 If elevated: Reviewed (BP was elevated this morning but a little low this afternoon.) - Qtc Review If Elevated: Reviewed (QTc 475 on 04/18 pt has ondansetron ordered, provider aware/pt being monitored) - IV to PO Switch IV Medications: Reviewed - Home Meds Home Med List reviewed: Reviewed (Separate admin of sucralfate and levothyroxine from most meds. Metoclopramide may diminish the therapeutic effect of ropinirole. Multiple meds that increase bleed risk and risk of hypoglycemia. Med rec not done, verfied what I could w/external med history, called providers office for med list.) Relevent Home Meds Not ordered & why?: aspirin and apixaban (on hold), glipiz ayla, levelmir, metformin, and trulicity (has sliding scale aspart ordered for now), budesonide/formoterol, cholecalciferol, flonase, furosemide, lisinopril, multivitamin, potassium chloride, tamsulosin - Current meds Current Medication Order Review: Reviewed - Comments Comments/Follow Ups: Watch BP, BG, mag, K+, SCr, and for med changes (avoid QT prolonging meds). Review med list from providers office when fax arrives.
--- NOTE | 2020-04-20 17:07 | PT.INNT ---
Date of service: 04/20/20 Time of Service: 17:07 PT Notes Visit Reasons: ACUTE KIDNEY INJURY, GENERALIZED WEAKNESS, UTI Dr. Fleming is in agreement with holding off on PT evaluation until result of cervical spine x-ray is interpreted by radiologist. Thank you for the opportunity to participate in the care of this patient. Melissa Cavazos PT, DPT, CLT [facility] [place], [place]
[2020-04-20] MEDS: Lidocaine 5% Patch 1 PATCH TP (17:17)
[2020-04-20] MEDS: Normal Saline Flush 10 ML SYR IVP (19:26)
[2020-04-20] MEDS: Mirtazapine 15 MG TAB PO (21:06)
[2020-04-20] MEDS: Ferrous Sulfate 325 MG TAB PO (21:06)
[2020-04-20] MEDS: Levothyroxine 150 MCG TAB PO (21:06)
[2020-04-20] MEDS: Atorvastatin 40 MG TAB 80 MG PO (21:06)
[2020-04-20] MEDS: rOPINIRole 1 MG TAB 2 MG PO (21:07)
[2020-04-20] MEDS: Gabapentin 400 MG CAP PO (21:07)
[2020-04-21] VITALS (115 sets, daily range): BP systolic 51–131; BP diastolic 23–79; PULSE 62–131; RESP 10–26; TEMP 36.5–37.2; O2SAT 89–100
[2020-04-21] MEDS: Lidocaine Patch Removal 1 EACH TP (06:54)
[2020-04-21 07:16] LABS: Abs Immature Grans 0.25 10^3/uL (0.0-0.06); Absolute Basophil Count 0.06 10^3/uL (0.0-0.2); Absolute Monocyte Count 1.37 10^3/uL (0.1-0.8); Absolute Neutrophil Count 16.08 10^3/uL (1.2-6.7); Basophils % 0.3; Eosinophils % 0.4; HCT 39.3 % (40.0-50.0); HGB 13.1 g/dL (13.5-17.5); Immature Grans % 1.3; Lymphocytes % 6.3; MCH 29.9 pg (27.0-33.0); MCHC 33.3 % (32.0-36.0); MCV 89.7 fL (80-95); MPV 10.4 fL (8.0-11.0); Monocytes % 7.2; Neutrophils % 84.5; Nucleated RBC 0 %; Platelet Count 279 10^3/uL (130-400); RBC 4.38 10^6/uL (4.36-5.78); RDW 13.9 % (11.8-14.1); WBC 19.03 10^3/uL (4.4-10.8)
[2020-04-21 07:20] LABS: Absolute Eosinophil Count 0.08 10^3/uL (0.0-0.7)
[2020-04-21 07:21] LABS: Anion Gap 9.3 mmol/L (3-11); BUN 13 mg/dL (7-18); CO2 22.7 mmol/L (21.0-32.0); CREATININE 1.3 mg/dL (0.70-1.30); Chloride 102 mmol/L (98-107); Estimated GFR 55.06 (mL/min/1.73m2); Glucose 229 mg/dL (74-106); Potassium 3.7 mmol/L (3.5-5.1); Sodium 134 mmol/L (136-145)
[2020-04-21] MEDS: Budesonide/Formoterol 80/4.5 6.9 GM 60 PUFF INH IH ×2 (08:00→20:00)
--- NOTE | 2020-04-21 08:16 | W.PM.PROGNOT ---
Date of Service Date of service: 04/21/20 Time of Service: 10:29 Assessment and Plan Assessment and plan (1) SIRS (systemic inflammatory response syndrome): Status: Acute Assessment and plan: DDx: Bacteremia (has a pacer), aspiration pneumonia, sinusitis, GI process. At this time, with WBC going up to 19 from 14 yesterday, Will start empiric abx (vancomycin, zosyn). Blood cultures ordered. Repeat CXR ordered. Monitor for diarrhea. (2) Upper GI bleeding: Status: Resolved Assessment and plan: Hematemesis at home, heme + here. S/p EGD 04/19/[address] Mckenzie: area of villous change in the proximal stomach which could have bled but was not actively bleeding at the time of the exam. Biopsies are pending. Continue PPI and carafate. Prn antiemetics. Back track diet to clears given nausea (3) Symptomatic anemia: Status: Acute Assessment and plan: As above. H/H up to 13.1/39.3. No more bleeding observed. Not requiring transfusion. Ok to transfer out of ICU. (4) Hypotension: Status: Resolved Assessment and plan: Likely a combination of decreased blood volume due to GI bleeding as well as effect of all of the BP meds at once. Not requiring pressors at this time. Tolerating beta blockers wiht holding parameters. (5) Epigastric pain: Status: Resolved Assessment and plan: As above. (6) Generalized weakness: Status: Acute Assessment and plan: UA negative. However, I suspect an infectious process in the lungs. Treat suspected underlying infection. PT C/s. (7) Paroxysmal atrial fibrillation: Status: Chronic Assessment and plan: Paroxysmal. Does have a h/o of CVA, so ideally he should be anticoagulated as soon as this is safe. Continue to hold anticoagulation. Continue PO metoprolol. (8) UTI (urinary tract infection): Status: Ruled-out Assessment and plan: UA negative yesterday. Qualifiers: Urinary tract infection type: site unspecified Hematuria presence: without hematuria Qualified Code(s): N39.0 - Urinary tract infection, site not specified (9) Type 2 diabetes mellitus with complication, with long-term current use of insulin: Status: Chronic Assessment and plan: Continue SSI. Add long acting insulin (low dose - PO intake not great). (10) Neck muscle weakness: Status: Acute Assessment and plan: XR c-spine ok PT consulted. Treat suspected underlying infection. (11) DVT prophylaxis: Status: Acute Assessment and plan: Chemical DVT ppx is contraindicated given GI bleeding. TEDs/SCDs. (12) Discharge planning issues: Status: Acute Assessment and plan: DNR/DNI Continues to require hospitalization. Palliative care consulted. Subjective Subjective Interval history since last seen: Sher states that he has a headache (frontal), that his nose feels congested. He denies dizziness, chest pain, shortness of breath. He is nauseated. Denies abdominal pain. Was heard coughing today. T max 37.7 overnight.. Nursing notes that the patient looks worse today, that he is more sluggish with his responses, and has reported nausea. He did not have breakfast because of nausea. Fatigued, but A&Ox3. BPs - metoprolol had to be held at midnight. 115/40, HR 77 - 84, up to 101. NSR. 450 out in 8 hrs. FBG 332 last night. Restless with CPAP last night. Exam Narrative Exam Narrative: General: Pleasant elderly male, pale, looks worse than yesterday, slow to respond, looks fatigued HEENT: EOMI, MMM, chronic facial droop Heart: RRR, no m/r/g Lungs: Diminished breath sounds B with faint crackles in R base Abdomen: soft, dose guard abdomen on palpation in epigastrium Extremities: no edema BLEs Objective Last Vital Signs Temp 37.6 C H 04/20/20 23:59 Pulse 101 H 04/21/20 06:49 Resp 14 04/20/20 23:59 BP 115/46 L 04/21/20 06:49 Pulse Ox 98 04/20/20 20:58 Laboratory Results - last 24 hr 04/20/20 04/21/20 04/21/20 13:00 06:30 06:30 WBC 19.03 H RBC 4.38 Hgb 13.1 L Hct 39.3 L MCV 89.7 MCH 29.9 MCHC 33.3 RDW 13.9 Plt Count 279 MPV 10.4 Immature Gran % 1.3 Neutrophils % 84.5 Lymphocytes % 6.3 Monocytes % 7.2 Eosinophils % 0.4 Basophils % 0.3 Nucleated RBC % 0 Absolute Neutrophils 16.08 H Absolute Lymphocytes 1.20 Absolute Monocytes 1.37 H Absolute Eosinophils 0.08 Absolute Basophils 0.06 Sodium 134 L Potassium 3.7 Chloride 102 Carbon Dioxide 22.7 Anion Gap 9.3 BUN 13 Creatinine 1.3 Estimated GFR/1.73 m2 55.06 Glucose 229 H Calcium 9.0 Magnesium 2.0 Urine Color Yellow Urine Clarity Clear Urine pH 5.5 Ur Specific [place] >= 1.030 H Urine Protein >=300 H Urine Ketones 40 H Urine Blood Moderate H Urine Nitrite Negative Urine Bilirubin Negative Urine Urobilinogen 0.2 Ur Leukocyte Esterase Negative Urine RBC 10-20 H Urine WBC 0-2 Ur Epithelial Cells Negative Urine Crystals Few amorphous Urine Bacteria Negative Urine Casts 0-2 coarse granular Urine Mucus Trace Ur Culture Indicated? No Urine Glucose 500 H
[2020-04-21] MEDS: Ezetimibe 10 MG TAB PO (09:05)
[2020-04-21] MEDS: Metoprolol 50 MG TAB PO (09:06)
[2020-04-21] MEDS: Magnesium Chloride 64 MG TABCR PO ×2 (09:06→20:25)
[2020-04-21] MEDS: Sucralfate 1 GM TAB PO (09:06)
[2020-04-21] MEDS: Ferrous Sulfate 325 MG TAB PO ×2 (09:07→20:27)
[2020-04-21] MEDS: FLUoxetine 20 MG CAP PO (09:07)
[2020-04-21] MEDS: Pantoprazole 40 MG VIAL IVP ×2 (09:07→20:27)
[2020-04-21] MEDS: Isosorbide Mononitrate 30 MG TABCR 120 MG PO (09:09)
[2020-04-21] MEDS: Insulin Aspart 300 UNITS/3 ML PEN SC ×4 (09:35→22:35)
--- NOTE | 2020-04-21 09:42 | PDOC.CMPRO ---
- If Service Date Differs Date of service: 04/21/20 Time of Service: 09:42 Care Management Progress Note S/O: Sher was lying in bed dozing when CM met with him. He was once again made ICU status due to a sudden drop in blood pressure. Sher remains in the ICU has been restarted on pressors and antibiotics. His WBC continues to climb and is 19.03 today, up from 14.67 yesterday. A troponin done at 12:45 was 0.32. Additional test have been scheduled. Sher was not very talkative with CM today; he answered questions only with a nod or shake of his head. Sher's sons were contacted by CM to update them on the situation. A: Sher is a 69 year old male admitted to [facility] on 04/16/2020 for acute kidney injury, generalized weakness, and a UTI. P: Plan remains for Sher to discharge to [facility] once medically stable. Transfer will likely occur on Sunday, although it will depend on his clinical course. He will follow up with the facility provider and plan of care as directed. CM will continue to support Sher and his discharge planning needs.
--- NOTE | 2020-04-21 09:55 | PT.INIE ---
Date of service: 04/21/20 Time of Service: 09:55 PT Notes Visit Reasons: ACUTE KIDNEY INJURY, GENERALIZED WEAKNESS, UTI Physical Therapy Inpatient Initial Evaluation Date: 04/21/20 Referring Doctor: Dameon Gonzalez MD PT Orders: PT CONSULT: Limited Ability Precautions: Standard. Fall. Activity as tolerated. Patient Profile/Admitting Diagnosis: Sher is a 69-year-old male who presented to the ED on 04/16/2020 due to complaints of generalized weakness and fall. He is diagnosed with acute kidney injury superimposed on chronic kidney disease, generalized weakness, urinary tract infection, paroxysmal atrial fibrillation, and repeated falls. He was transferred to ICU level of care this past weekend for close monitoring of suspected GI bleeding and hypotension. PMHX: Medical History Abnormal finding of kidney Anxiety with depression Aortic valve replaced Back pain CAD (coronary artery disease) COPD (chronic obstructive pulmonary disease) CVA (cerebral vascular accident) Diabetic neuropathy DM (diabetes mellitus) GERD (gastroesophageal reflux disease) H/O: HTN (hypertension) Hematuria HFrEF (heart failure with reduced ejection fraction) History of bloody stools HTN (hypertension) Hx of fall Hyperlipidemia Hypothyroidism Hypothyroidism (acquired) Insomnia Memory impairment Obesity IVETTE (obstructive sleep apnea) IVETTE on CPAP Pacemaker Paroxysmal atrial fibrillation Passive suicidal ideations Perforated tympanic membrane Polypharmacy Proteinuria Rash, skin Renal insufficiency Sick sinus syndrome Sinus node dysfunction Tinea cruris Surgical History Coronary Artery Bypass Gaft (CABG) Coronary Stent CABGx4 H/O carotid endarterectomy Pacemaker Replacement of aortic valve Social History/Home Situation: Patient lives at home alone at the [facility]. He does have a walker that he utilizes at baseline. Patient states that he is on a list and has already been accepted to receive a motorized wheelchair. Today, he states that he has decided to just buy a friend's motorized wheelchair as he is not sure when he can move up in this list. Equipment Owned/DME: Front-wheeled walker Subjective: Complained of severe fatigue and inability to maintain standing position during assessment for orthostatic hypotension. Objective: General observation: Pale lips. Obese. Supine in bed. IV access in R UE. Oxygen supplementation at 1 L/min via NC. Bilateral TEDS on. Telemetry monitoring in place. Lethargic. Nurse Leora and student Nurse Raisa assisting for safety. Mental Status: Lethargic. Answers to name when called. Follow single step commands. Pain: None reported ROM: Right Upper Extremity: Shoulder Flexion allows up to 100 degrees only. Shoulder abduction allows up to about 90 degrees only. Elbow flexion WFL. Wrist flexion WFL. Functional opening and closing of hand WFL. Left Upper Extremity: Shoulder Flexion allows up to 100 degrees only. Shoulder abduction allows up to about 90 degrees only. Elbow flexion WFL. Wrist flexion WFL. Functional opening and closing of hand WFL. Right Lower Extremity: Hip flexion WFL. Hip abduction WFL. Knee flexion WFL. Ankle dorsiflexion WFL. Ankle plantarflexion WFL. Left Lower Extremity: Hip flexion WFL. Hip abduction WFL. Knee flexion WFL. Ankle dorsiflexion about 10 degrees above neutral. Ankle plantarflexion WFL. Strength: Right Upper Extremity: Shoulder flexors 3-/5. Shoulder abductors 3-/5. Elbow flexors 4/5. Elbow extensors 4/5. Automation Controls Specialist strong. Left Upper Extremity: Shoulder flexors 3-/5. Shoulder abductors 3-/5. Elbow flexors 4/5. Elbow extensors 4/5. Automation Controls Specialist strong. Right Lower Extremity: Hip flexors 3+/5. Hip abductors 4-/5. Knee flexors 4/5. Knee extensors 4-/5. Ankle dorsiflexors 4-/5. Ankle plantarflexors 4-/5. Left Lower Extremity: Hip flexors 3+/5. Hip abductors 4-/5. Knee flexors 4/5. Knee extensors 4-/5. Ankle dorsiflexors 3-/5. Ankle plantarflexors 4-/5. Bed Mobility/Transfers: Sit to supine standby assist with HOB at 30 degrees Sit to stand minimal assist of 2 Stand to sit minimal assist of 2 Bed to chair unable Chair to bed unable Gait: Unable Balance: Static Sitting: Good Dynamic Sitting: Fair Static Standing: Unable Dynamic Standing: Unable ASSESSMENT: Sher continues to demonstrates functional mobility pain, generalized weakness, impairment in balance, and increased risk for falls due to admitting diagnoses and co-morbidities. He will benefit from PT services in order to facilitate return to premorbid independent level and maximize ability to return and stay at home. Patient will benefit from long-term facility placement for continued skilled physical therapy services in order to progress mobility level, strength, and balance in preparation for a safe discharge to home. Patient presents with clinical signs and symptoms consistent with current/admitting diagnoses that have resulted to mobility limitations, gait instability, generalized weakness, and impairment of motor control as demonstrated by the following impairment level findings: 1. Decreased strength to B UE/LE major muscle groups 2. Impaired standing balance and tolerance 3. Impaired activity tolerance 4. Limitation of joint range of motion in B shoulders 5. Lethargy Impairments are contributing to the following functional limitations: 1. Inability to tolerate transfers 2. Inability to safely ambulate 3. Increased fall risk Patient is assessed as a 52578 high complexity based on the following: History: 69-year-old male with impairment level findings, functional limitations, and past medical history as indicated above Examination: Demonstrable impairment in strength, balance, and mobility level with underlying impairments and functional limitations as documented above Presentation:Evolving Decision Makin high complexity Goals: Goals X1 week 1. Supine-Sit standby assist 2. Sit-Supine standby assist 3. Sit-Stand standby assist 4. Stand-Sit minimal assist 5. Bed-Chair minimal assist 6. Gait supervision with the assistance of front wheel walker up to 100 feet DISCHARGE RECOMMENDATIONS: Patient will benefit from long-term facility placement for continued skilled physical therapy services in order to progress mobility level, strength, and balance in preparation for a safe discharge to home. Will benefit from the use of a motorized wheelchair for community ambulation. TREATMENT CODE/TIME: 26658 x 25 minutes beginning at 9:55 AM. Thank you for the opportunity to participate in the care of this patient. Melissa Cavazos PT, DPT, CLT [facility] [place], [place]
[2020-04-21] MEDS: Ondansetron 4 MG/2 ML VIAL IVP (10:35)
--- NOTE | 2020-04-21 10:58 | DI.RAD_ITS ---
EXAM: XR PORTABLE CHEST AP CLINICAL HISTORY: worsening leucocytosis, cough, ?aspiration TECHNIQUE: 2D digital imaging was performed. COMPARISON: CT CT CHEST PE CTA from 04/18/[address] CHEST PE CTA from 04/18/2020 CR XR PORTABLE CHEST AP from 04/20/2020 FINDINGS: LUNGS: Clear. No pleural abnormality seen. HEART: Mildly enlarged, stable. Pacemaker, sternal wires mediastinal clips related to prior CABG. P roximal aortic stent. BONES: Unremarkable. IMPRESSION: No acute pulmonary findings. DATA REPOSITORY: RADIATION DOSE DELIVERED:
[2020-04-21] MEDS: PIPERACILLIN/TAZO 3.375 GM in Normal Saline 50 ML IVPB ×3 (11:09→23:08)
[2020-04-21] MEDS: Normal Saline 500 ML 999 ML IV ×3 (12:10→13:19)
--- NOTE | 2020-04-21 12:15 | RT.EKG_ITS ---
APPROVED REPORT Exam: Resting ECG Patient Location: I HR:74 bpm ECG Measurements Heart Rate 74 AXIS OK 175 P 62 QRSd 151 QRS -27 QT 433 T 124 QTc 482 Conclusion Sinus rhythm...normal P axis, V-rate 60- 99 Right bundle branch block...QRSd>120, terminal axis(90,270) Inferior infarct, old...Q >35mS, II III aVF
[2020-04-21] MEDS: VANCOMYCIN/WATER (PEG) 1.5 GM/300 ML BAG IVPB (12:18)
[2020-04-21 12:57] LABS: Lactate 1.9 mmol/L (0.6-1.4)
[2020-04-21 13:20] LABS: Troponin I 0.32 ng/mL (<0.06)
--- NOTE | 2020-04-21 13:55 | NT_ITS ---
Date of service: 04/21/20 Time of Service: 13:55 PT Notes Visit Reasons: ACUTE KIDNEY INJURY, GENERALIZED WEAKNESS, UTI 04/21/2020 Per nursing, hold afternoon PT session, as patient is hypotensive with elevated troponin levels. Will attempt to resume PT services tomorrow morning, if paulo ent is medically appropriate.
--- NOTE | 2020-04-21 14:23 | PGE_ITS ---
Date of Service Date of service: 04/21/20 Time of Service: 14:23 Assessment and Plan Assessment and plan (1) Hypotension: Status: Acute Assessment and plan: Ddx: reaction to BP meds, ACS, rebleeding, septic shock. Initiated on pressors and antibiotics. Continue IVF. Troponin 0.36 - I cannot anticoagulate Mr Hinkle due to his recent GI bleed. EKG with RBBB (old), NSR, HR 74. Transfer back to ICU. Obtain stat echo. Trend troponins. Consider transfer to a tertiary care facility. Total Critical Care Time: 45 minutes. (2) SIRS (systemic inflammatory response syndrome): Status: Acute Assessment and plan: DDx: Bacteremia (has a pacer), aspiration pneumonia, sinusitis, GI process. At this time, with WBC going up to 19 from 14 yesterday, Will start empiric abx (vancomycin, zosyn). Blood cultures ordered. Repeat CXR ordered. Monitor for diarrhea. (3) Upper GI bleeding: Status: Resolved Assessment and plan: Hematemesis at home, heme + here. S/p EGD 04/19/[address] Mckenzie: area of villous change in the proximal stomach which could have bled but was not actively bleeding at the time of the exam. Biopsies are pending. Continue PPI and carafate. Prn antiemetics. Back track diet to clears given nausea (4) Symptomatic anemia: Status: Acute Assessment and plan: As above. H/H up to 13.1/39.3. No more bleeding observed. Not requiring transfusion. Ok to transfer out of ICU. (5) Epigastric pain: Status: Resolved Assessment and plan: As above. (6) Generalized weakness: Status: Acute Assessment and plan: UA negative. However, I suspect an infectious process in the lungs. Treat suspected underlying infection. PT C/s. (7) Paroxysmal atrial fibrillation: Status: Chronic Assessment and plan: Paroxysmal. Does have a h/o of CVA, so ideally he should be anticoagulated as soon as this is safe. Continue to hold anticoagulation. Continue PO metoprolol. (8) UTI (urinary tract infection): Status: Ruled-out Assessment and plan: UA negative yesterday. Qualifiers: Urinary tract infection type: site unspecified Hematuria presence: without hematuria Qualified Code(s): N39.0 - Urinary tract infection, site not specified (9) Type 2 diabetes mellitus with complication, with long-term current use of insulin: Status: Chronic Assessment and plan: Continue SSI. Add long acting insulin (low dose - PO intake not great). (10) Neck muscle weakness: Status: Acute Assessment and plan: XR c-spine ok PT consulted. Treat suspected underlying infection. (11) DVT prophylaxis: Status: Acute Assessment and plan: Chemical DVT ppx is contraindicated given GI bleed ing. TEDs/SCDs. (12) Discharge planning issues: Status: Acute Assessment and plan: DNR/DNI Transfer back to the ICU Palliative care consulted. Total Critical Care Time 45 minutes. Subjective Subjective Interval history since last seen: called to bedside because patient's BP became suddenly low - SBP in 50s. The patient was on CPAP - taken off, his SBP was in the 70s. This did not respond well to IVF. Mr Hinkle was initiated on levophed - MAP is now 65. The patient endorses nausea, denies chest pain, shortness of breath, dizziness. Exam Narrative Exam Narrative: General: Pleasant elderly male, arousable, but lethargic, looks differentthan just a little bit earlier today HEENT: EOMI, MMM, chronic facial droop, pale Heart: RRR, +MARCY/rub - new Lungs: Diminished breath sounds B with faint crackles in R base Abdomen: soft, dose guard abdomen on palpation in epigastrium Extremities: no edema BLEs Objective Last Vital Signs Temp 37.0 C 04/21/20 14:02 Pulse 68 04/21/20 14:05 Resp 16 04/21/20 14:05 BP 74/47 L 04/21/20 14:05 Pulse Ox 95 04/21/20 14:05 Laboratory Results - last 24 hr 04/21/20 04/21/20 04/21/20 06:30 06:30 12:35 WBC 19.03 H RBC 4.38 Hgb 13.1 L Hct 39.3 L MCV 89.7 MCH 29.9 MCHC 33.3 RDW 13.9 Plt Count 279 MPV 10.4 Immature Gran % 1.3 Neutrophils % 84.5 Lymphocytes % 6.3 Monocytes % 7.2 Eosinophils % 0.4 Basophils % 0.3 Nucleated RBC % 0 Absolute Neutrophils 16.08 H Absolute Lymphocytes 1.20 Absolute Monocytes 1.37 H Absolute Eosinophils 0.08 Absolute Basophils 0.06 VBG Lactate 1.9 H Sodium 134 L Potassium 3.7 Chloride 102 Carbon Dioxide 22.7 Anion Gap 9.3 BUN 13 Creatinine 1.3 Estimated GFR/1.73 m2 55.06 Glucose 229 H Calcium 9.0 Magnesium 2.0 Troponin I 04/21/20 12:35 WBC RBC Hgb Hct MCV MCH MCHC RDW Plt Count MPV Immature Gran % Neutrophils % Lymphocytes % Monocytes % Eosinophils % Basophils % Nucleated RBC % Absolute Neutrophils Absolute Lymphocytes Absolute Monocytes Absolute Eosinophils Absolute Basophils VBG Lactate Sodium Potassium Chloride Carbon Dioxide Anion Gap BUN Creatinine Estimated GFR/1.73 m2 Glucose Calcium Magnesium Troponin I 0.32 H*
[2020-04-21] MEDS: Normal Saline 1,000 ML 150 ML IV ×2 (14:39→21:31)
--- NOTE | 2020-04-21 15:56 | W.SPSTP ---
Date of service: 04/21/20 Time of Service: 15:57 Objective/Assessment/Plan Plan TOUR ESCORT Non-Treatment Note 04/21/20 Pt is a 69 year old male admitted to [facility] on 04/16/2020 for acute kidney injury, generalized weakness, and a UTI, referred for clinical swallow evaluation by Dr Risa Fleming. TOUR ESCORT consult received and chart reviewed. Appreciate most recent RD note from 04/20/20: EGD indicates possible esophageal cancer, biopsy pending. PO intake was excellent when first admitted, has been NPO x 2 days for testing. At high nutritional risk in view of significant weight loss in last 2 months, poorly controlled Dm and decreased ability to care for self prior to admission. Per nursing, patient is hypotensive with elevated troponin levels at this time, not appropriate for po intake currently. Discussed oral care as tolerated, potential trial of ice chips if/when patient is alert/upright and medically stable. Will plan to re-assess tomorrow once medically appropriate. Palma Marie MA CCC-TOUR ESCORT [phone]
[2020-04-21 16:42] LABS: Troponin I 0.71 ng/mL (<0.06)
[2020-04-21] MEDS: Lidocaine 5% Patch 1 PATCH TP (18:01)
[2020-04-21] MEDS: Normal Saline Flush 10 ML SYR 20 ML IVP (20:00)
[2020-04-21] MEDS: Aspirin E.C. 325 MG TABEC PO (20:22)
[2020-04-21] MEDS: Atorvastatin 40 MG TAB 80 MG PO (20:22)
[2020-04-21 21:36] LABS: Troponin I 0.98 ng/mL (<0.06)
[2020-04-21] MEDS: Insulin Glargine 300 UNITS/3 ML PEN 10 UNITS SC (22:37)
[2020-04-22] VITALS (85 sets, daily range): BP systolic 87–138; BP diastolic 39–111; PULSE 66–94; RESP 13–30; TEMP 36.3–36.5; O2SAT 86–99
--- NOTE | 2020-04-22 | DI.US_ITS ---
EXAM: US ABDOMEN CLINICAL HISTORY: concern for intraabdominal infection TECHNIQUE: Ultrasound abdomen performed using standard protocol. COMPARISON: CT CT THORAX ABDOMEN CTA from 04/13/[address] THORAX ABDOMEN CTA from 04/13/2020 FINDINGS: The exam is limited due to the patient's body habitus. The patient could not breath hold and could n ot be placed indicate UB disposition. LIVER: Normal size and echogenicity. No focal liver lesions are seen.. GALLBLADDER: Question of gallbladder sludge. No evidence of cholelithiasis. No evidence of wall thic kening. No pericholecystic fluid identified. ARTEAGA'S SIGN: Negative. BILIARY SYSTEM: No intrahepatic or extrahepatic biliary ductal dilation. KIDNEYS: Kidneys are symmetric in size. No evidence of renal calculi. No evidence of hydronephrosis. No renal mass or cyst identified. Renal cysts were seen on previous CT but not visualized on this ex am. PANCREAS: Normal where visualized. SPLEEN: Not enlarged. ABDOMINAL AORTA AND IVC: Visualized portions normal caliber. ASCITES: None seen. IMPRESSION: Limited exam. Question of gallbladder sludge. No stones or biliary dilatation. DATA REPOSITORY:
[2020-04-22] MEDS: VANCOMYCIN/WATER (PEG) 1.25 GM/250 ML BAG IV ×2 (02:00→17:32)
[2020-04-22] MEDS: PIPERACILLIN/TAZO 3.375 GM in Normal Saline 50 ML IVPB (04:05)
[2020-04-22] MEDS: Lidocaine Patch Removal 1 EACH TP (05:44)
[2020-04-22] MEDS: Normal Saline 1,000 ML 150 ML IV ×2 (05:45→13:04)
[2020-04-22 06:41] LABS: Abs Immature Grans 0.59 10^3/uL (0.0-0.06); HCT 33.7 % (40.0-50.0); MCH 29.8 pg (27.0-33.0); MCHC 32.6 % (32.0-36.0); MCV 91.3 fL (80-95); MPV 9.9 fL (8.0-11.0); Nucleated RBC 0 %; RBC 3.69 10^6/uL (4.36-5.78); RDW 14.3 % (11.8-14.1); RDW-SD 48.4 fL; WBC 19.48 10^3/uL (4.4-10.8)
[2020-04-22 07:08] LABS: Anion Gap 13.9 mmol/L (3-11); BUN 16 mg/dL (7-18); CO2 19.1 mmol/L (21.0-32.0); CREATININE 1.4 mg/dL (0.70-1.30); Calcium 8.2 mg/dL (8.5-10.1); Chloride 105 mmol/L (98-107); Estimated GFR 50.55 (mL/min/1.73m2); Glucose 199 mg/dL (74-106); Magnesium 1.8 mg/dL (1.8-2.4); Potassium 3.8 mmol/L (3.5-5.1); Sodium 138 mmol/L (136-145)
[2020-04-22 07:17] LABS: Troponin I 0.63 ng/mL (<0.06)
[2020-04-22 07:25] LABS: Procalcitonin 1.2 ng/mL
[2020-04-22 07:48] LABS: Absolute Basophil Count 0.97 10^3/uL (0.0-0.2); Absolute Eosinophil Count 0.19 10^3/uL (0.0-0.7); Absolute Lymphocyte Count 0.97 10^3/uL (1.2-3.4); Absolute Monocyte Count 1.75 10^3/uL (0.1-0.8); Absolute Neutrophil Count 16.17 10^3/uL (1.2-6.7); Bands % 1; Diff Comment Manual Differential; Platelet Count 290 10^3/uL (130-400); Polychromasia Present
[2020-04-22 07:49] LABS: Poikilocytes 2+
[2020-04-22] MEDS: Budesonide/Formoterol 80/4.5 6.9 GM 60 PUFF INH IH ×2 (08:11→20:16)
[2020-04-22 08:17] LABS: C-Reactive Protein > 25.00 mg/dL (0.0-0.3)
--- NOTE | 2020-04-22 08:29 | PGE_ITS ---
Date of Service Date of service: 04/22/20 Time of Service: 12:33 Assessment and Plan Assessment and plan (1) Septic shock: Status: Acute Assessment and plan: Transferred back to ICU; on levophed. Procalcitonin and CRP elevated. Clinically looks better, but WBC not improving. ?source. UA was completely negative on 04/20, but we are rechecking it again. CXR was negative yesterday. US abdomen without clear cholecystitis, shows gallbladder sludge. Blood cultures are negative (should they turn positive, there is a concern for infected pacemaker and/or endocarditis given his bioprosthetic valve). Will obtain CT abdomen/pelvis given patient's report of something being wrong with his kidneys. Continue vancomycin; we upgraded zosyn to meropenem. Continue IVF as long as respiratory status permits it. Wean pressors. Keep in the ICU. Continue to monitor blood cultures. (2) NSTEMI (non-ST elevated myocardial infarction): Status: Acute Assessment and plan: EKG unchanged. No arrhythmias or chest pain. Echo read still pending, but was reviewed by [facility] cardiology with me yesterday. The patient's echo was unchanged - EF around 41% with old wall motion abnormalities. The patient has severe CAD which, at this point, is non-operable. Having said this, this elevation of troponin likely represents Type 2 NSTEMI from the deman of septic shock and anemia. We were advised not to anticoagulate by cardiology, but initiate aspirin. (general surgery did clear the patient for anticoagulation). Continue cardiac monitoring. Await echo. When safe, restart BB, but would start a lower dose of imdur. (3) Upper GI bleeding: Status: Resolved Assessment and plan: Hematemesis at home, heme + here. S/p EGD 04/19/[address] Mckenzie: area of villous change in the proximal stomach which could have bled but was not actively bleeding at the time of the exam. Biopsies are pending. Continue PPI and carafate. Prn antiemetics. Can have clears by mouth. Per general surgery, may anticoagulate if needed, but we are holding off at this very point until BPs stabilize and H/H remains reliably stable. (4) Symptomatic anemia: Status: Acute Assessment and plan: As above. H/H up to 13.1/39.3. No more bleeding observed. (5) Epigastric pain: Status: Resolved Assessment and plan: As above. (6) Generalized weakness: Status: Acute Assessment and plan: May be reflective of an underlying infectious process. Appears to be improving with empiric abx. As above. (7) Paroxysmal atrial fibrillation: Status: Chronic Assessment and plan: Paroxysmal. Does have a h/o of CVA, so ideally he should be anticoagulated as soon as this is safe, but given that he is on pressors right now, I would hold off - in case he does rebleed, I want him to have a better underlying reserve. Continue to hold anticoagulation. Hold metoprolol due to shock. (8) UTI (urinary tract infection): Status: Ruled-out Assessment and plan: UA negative yesterday. We are again repeating his UA. Obtain CT abdomen/pelvis to r/o renal pathology. Qualifiers: Urinary tract infection type: site unspecified Hematuria presence: without hematuria Qualified Code(s): N39.0 - Urinary tract infection, site not specified (9) Type 2 diabetes mellitus with complication, with long-term current use of insulin: Status: Chronic Assessment and plan: Continue basal bolus insulin (10) Neck muscle weakness: Status: Acute Assessment and plan: XR c-spine ok PT consulted. Treat suspected underlying infection. (11) DVT prophylaxis: Status: Acute Assessment and plan: Chemical DVT ppx is contraindicated given GI bleeding. TEDs/SCDs. (12) Discharge planning issues: Status: Acute Assessment and plan: DNR/DNI Keep In ICU Total Critical Care Time 60 minutes. Subjective Subjective Interval history since last seen: More alert and conversant today. Feels a little better. Denies dizziness, chest pain, shortness of breath, nausea, abdominal pain. Stated that 2 weeks ago he had hematuria and that something was wrong with his kidneys. Still on pressors - 6 mcg/kg, MAP 61. Troponin up to 0.98, now down to 0.63. Crackles RLL. On O2 - up to 2L, good sats on RA when awake. Did not wear CPAP overnight. In RBBB. SR - no arrhythmias. No CP overnight. UOP 550 cc/hr. Exam Narrative Exam Narrative: General: Pleasant elderly male, much more alert today, joking/laughing, A&Ox3, mentation intact HEENT: EOMI, MMM, chronic facial droop, pale Heart: RRR, +MARCY/rub - new, less pronounced than yesterday. Lungs: Diminished breath sounds B with faint crackles in R base Abdomen: soft, nontender, nondistended. Extremities: no edema BLEs Objective Last Vital Signs Temp 36.3 C L 04/22/20 04:00 Pulse 74 04/22/20 05:45 Resp 24 04/22/20 05:45 BP 114/51 L 04/22/20 05:45 Pulse Ox 96 04/22/20 08:11 Laboratory Results - last 24 hr 04/21/20 04/21/20 04/21/20 12:35 12:35 15:55 WBC RBC Hgb Hct MCV MCH MCHC RDW Plt Count MPV Immature Gran % Neutrophils % Band Neutrophils % Lymphocytes % Monocytes % Eosinophils % Basophils % Nucleated RBC % Absolute Neutrophils Absolute Lymphocytes Absolute Monocytes Absolute Eosinophils Absolute Basophils RBC Morphology Polychromasia Poikilocytosis VBG Lactate 1.9 H Sodium Potassium Chloride Carbon Dioxide Anion Gap BUN Creatinine Estimated GFR/1.73 m2 Glucose Calcium Magnesium Troponin I 0.32 H* 0.71 H* C-Reactive Protein Procalcitonin 04/21/20 04/22/20 04/22/20 20:56 06:03 06:03 WBC 19.48 H RBC 3.69 L Hgb 11.0 L D Hct 33.7 L MCV 91.3 MCH 29.8 MCHC 32.6 RDW 14.3 H Plt Count 290 MPV 9.9 Immature Gran % 0.0 Neutrophils % 82.0 Band Neutrophils % 1 Lymphocytes % 5.0 Monocytes % 9.0 Eosinophils % 1.0 Basophils % 5.0 Nucleated RBC % 0 Absolute Neutrophils 16.17 H Absolute Lymphocytes 0.97 L Absolute Monocytes 1.75 H Absolute Eosinophils 0.19 Absolute Basophils 0.97 H RBC Morphology See below Polychromasia Present Poikilocytosis 2+ VBG Lactate Sodium 138 Potassium 3.8 Chloride 105 Carbon Dioxide 19.1 L Anion Gap 13.9 H BUN 16 Creatinine 1.4 H Estimated GFR/1.73 m2 50.55 Glucose 199 H Calcium 8.2 L Magnesium 1.8 Troponin I 0.98 H* 0.63 H* C-Reactive Protein > 25.00 H Procalcitonin 04/22/20 04/22/20 06:03 06:03 WBC RBC Hgb Hct MCV MCH MCHC RDW Plt Count MPV Immature Gran % Neutrophils % Band Neutrophils % Lymphocytes % Monocytes % Eosinophils % Basophils % Nucleated RBC % Absolute Neutrophils Absolute Lymphocytes Absolute Monocytes Absolute Eosinophils Absolute Basophils RBC Morphology Polychromasia Poikilocytosis VBG Lactate Sodium Potassium Chloride Carbon Dioxide Anion Gap BUN Creatinine Estimated GFR/1.73 m2 Glucose Calcium Magnesium Troponin I Cancelled C-Reactive Protein Procalcitonin 1.2 Echo read pending
[2020-04-22] MEDS: Sucralfate 1 GM TAB PO ×3 (09:35→17:34)
[2020-04-22] MEDS: FLUoxetine 20 MG CAP PO (09:35)
[2020-04-22] MEDS: Magnesium Chloride 64 MG TABCR PO (09:36)
[2020-04-22] MEDS: Ezetimibe 10 MG TAB PO (09:36)
[2020-04-22] MEDS: Aspirin E.C. 81 MG TABEC PO (09:36)
[2020-04-22] MEDS: Ferrous Sulfate 325 MG TAB PO (09:37)
--- NOTE | 2020-04-22 09:37 | SPP_ITS ---
Date of service: 04/22/20 Time of Service: 09:46 Objective/Assessment/Plan Plan SPEECH AND LANGUAGE ASSISTANT Non-Treatment Note 04/22/20 SPEECH AND LANGUAGE ASSISTANT consulted with ICU nursing staff this am; pt not appropriate for po intake currently per RN. Given continued NPO status and risk of increased oral bacteria growth/unknown risk of aspiration without direct evaluation, encourage frequent oral care with assist QID/as tolerated, potential trial of ice chips if/when patient is alert/upright and medically stable to reduce risk of oropharyngeal swallowing musculature atrophy. SPEECH AND LANGUAGE ASSISTANT has contacted covering SPEECH AND LANGUAGE ASSISTANT through [facility] [phone] for patient evaluation once medically appropriate. Palma Marie MA [facility]-SPEECH AND LANGUAGE ASSISTANT [phone]
--- NOTE | 2020-04-22 09:37 | W.SPSTP ---
Date of service: 04/22/20 Time of Service: 09:46 Objective/Assessment/Plan Plan CONCRETE BUCKET UNLOADER Non-Treatment Note 04/22/20 CONCRETE BUCKET UNLOADER consulted with ICU nursing staff this am; pt not appropriate for po intake currently per RN. Given continued NPO status and risk of increased oral bacteria growth/unknown risk of aspiration without direct evaluation, encourage frequent oral care with assist QID/as tolerated, potential trial of ice chips if/when patient is alert/upright and medically stable to reduce risk of oropharyngeal swallowing musculature atrophy. CONCRETE BUCKET UNLOADER has contacted covering CONCRETE BUCKET UNLOADER through [facility] [phone] for patient evaluation once medically appropriate. Palma Marie MA [facility]-CONCRETE BUCKET UNLOADER [phone]
[2020-04-22] MEDS: Insulin Aspart 300 UNITS/3 ML PEN SC ×4 (09:38→20:27)
[2020-04-22] MEDS: Normal Saline Flush 10 ML SYR 20 ML IVP ×2 (09:39→20:16)
[2020-04-22] MEDS: Pantoprazole 40 MG VIAL IVP (09:39)
[2020-04-22] MEDS: MEROPENEM 1 GM in Normal Saline 100 ML IVPB ×2 (10:00→17:11)
[2020-04-22 10:03] LABS: ALT 9 U/L (16-63); AST 17 U/L (15-37); Albumin 1.2 g/dL (3.4-5.0); Alkaline Phosphatase 116 U/L (46-116); Bilirubin, Direct 0.26 mg/dL (0.00-0.20); Bilirubin, Total 0.8 mg/dL (0.2-1.0); Lipase 41 U/L (73-393); Total Protein 5.2 g/dL (6.4-8.2)
--- NOTE | 2020-04-22 10:15 | RT.EKG_ITS ---
APPROVED REPORT Exam: Resting ECG Patient Location: I HR:78 bpm ECG Measurements Heart Rate 78 AXIS NM 166 P 77 QRSd 149 QRS -30 QT 409 T 91 QTc 465 Conclusion Sinus rhythm...normal P axis, V-rate 60- 99 Right bundle branch block...QRSd>120, terminal axis(90,270) Inferior infarct, old...Q >35mS, II III aVF
--- NOTE | 2020-04-22 10:32 | PDOC.CMPRO ---
- If Service Date Differs Date of service: 04/22/20 Time of Service: 10:32 Care Management Progress Note S/O: Sehr was sitting up in bed when CM met with him. He was wide awake and alert and oriented. He stated that he is finally feeling a bit better and acknowledged that he has been really sick for the past few days. Dr. Turner met with Sher this afternoon. They had a long discussion about goals of care and Sher informed Dr. Turner that he wished to be made Comfort Measures Only He informed her that he knows he is dying and that he is not afraid of . PAT contacted his sons Casey and Amy again and shared this information with them. Casey stated that this is consistent with what Sher has stated to them in the past and that they understand. They were informed that they may come to visit but that it would have to be the same 2 people all of the time. PAT also informed them that Sher is likely to call them tonight as he indicated this to his nurse in the ICU. A: Sher is a 69 year old male admitted to [facility] on 04/16/2020 for acute kidney injury, generalized weakness, and a UTI. P: Plan is uncertain at this time as Sher has been made comfort measures. Depending on the course of his illness he may remain at [facility] or choose to go to the [facility] for care. If transferred, Sher will follow up with the facility provider and plan of care as directed. CM will continue to support Sher, his family and his discharge planning needs. cc:
[2020-04-22] MEDS: Fluticasone NASAL SPRAY 16 GM BTL NS (11:59)
[2020-04-22 12:23] LABS: Lactate 1.4 mmol/L (0.6-1.4)
--- NOTE | 2020-04-22 14:25 | PT.INTREAT ---
Date of service: 04/22/20 Time of Service: 14:25 PT Notes Visit Reasons: ACUTE KIDNEY INJURY, GENERALIZED WEAKNESS, UTI 04/22/2020 Hold PT in both a.m. and p.m., per nursing, due to current medical status. Will attempt to resume PT services tomorrow, if medically appropriate.
--- NOTE | 2020-04-22 15:33 | NUR.NOTE ---
1430: Dr Turner in at pt's bedside for palliative care consult. Dr Turner informed this RN and student nurse, Sunitha in the presence of this patient that he would no longer like to continue any more of these IV treatments that are keeping him alive. That this patient would just like to be kept comfortable. Patient was attentive to this conversation and was nodding in agreement to what Dr Turner had stated. Patient then said to all 3 of us in the room that he feels like he is going to soon and that he is okay with this. Dr Turner asked the patient if he would like to see a towing pilot, Sher declined this offer, stating that he speaks with God himself. Sher requests to have a room with a view, to have his Limon catheter kept in place and to have someone contact his sons. Dr Turner departed the room, stating she would update Dr. Fleming. When Dr Turner left the room Sher started to attempt to get up OOB, stating he wanted to sit up his back was sore. This RNNora and student nurse, Sunitha assisted Paulto sit on the side of the bed and sip on water as he requested. After pt stood up at side of bed to stretch as he requested. Pt bed linen was straightened and we assisted pt back to bed rest supine position. Pt tolerated this well. Pt's Norepinephrine remains infusing at 0.2mcg/kg/min. 1500: Dr Fleming in at pt's bedside and asked him what his goals for treatment were particularly if he wanted any further antibiotic therapy, IV medications to maintain his blood pressure. Regarding the IV antibiotics and IV BP medication (Norepinephrine) Sher stated after these current bags are done (pt pointing at his IV's) no further medications. Pt's Norepinephrine remains infusing at 0.2mcg/kg/min. Current BP's are stable. Pt appears, pale but alert and comfortable and smiling with staff.
--- NOTE | 2020-04-22 15:58 | CHAPLAIN ---
Sher's nurse, DINORA Fortune, asked if I would check with Sher as he will likely be made CM soon. I brought him a prayer shawl, introduced myself and offered support. He asked for help in call in sister who lives in [facility], and wasn't interested in a longer visit at this point. I'll check in with him tomorrow.
--- NOTE | 2020-04-22 16:40 | PCNE_ITS ---
Date of service: 04/22/20 Time of Service: 14:40 History of Present Illness History of Present Illness Chief Complaint: NSTEMI, end-stage CAD, GOC, DM2 Narrative: I met with Sher in the ICU. I was asked to see him by Dr Fleming, hospitalist, to discuss his goals of care. He is a chronically ill man with end- stage CAD who experienced another HI on this admission. He also has a rising white count but no fever, no identified source of infection. He has been on pressors after he became hyotensive yesterday. He's being treated with broad sp ectrum antibiotics for suspected septic shock of unknown etiology. He told me he's in no pain. When I asked what was bothering him, he said I feel weak all over. and I'm very thirsty. Could I have some ice water? I asked if he realized how sick he is. He told me I am very close to dying. I asked if this troubled him, if he were frightened, and he said he was not. He said he knows he is going to . It's normal. It's natural. He explained that he has plans to be cremated. He said he knows he is never going home to [facility], where he has been living with support from Home Health. I asked if he wanted his medical care to be aimed primarily at his comfort. He said he did. He said he was tired. He said he had already told his boys he was dying. We talked about comfort measures, and moving him to the regular medical floor. He said that sounded good. I asked his nurse and a director industrial nursing to enter his room and witness him state his wishes again. He reiterated his desires to have his medical care aimed at keeping him comfortable, even if that results in his . I relayed his desires to Dr Fleming. Consults Consult date: 04/22/20 Requesting physician: Risa Fleming Assessment and Plan Assessment and plan (1) NSTEMI (non-ST elevated myocardial infarction): Status: Acute Assessment and plan: Hospitalist team has contacted cardiology at [facility]. He is not a candidate for further cardiac interventions. Nor does he want any. He is not having any chest pain or dyspnea, but recommend low dose morphine be available to him to control these sx. (2) Septic shock: Status: Acute Assessment and plan: No source identified. He is not in pain or delirious. Explained to him that if he stopped his antibiotics, he might sooner. He said he understood. (3) Generalized weakness: Status: Chronic Assessment and plan: This is Sher's biggest medical complaint. I'm so tired and so weak. I know I can't go on. I don't think he would benefit from any pharmaceutical interventions to treat this (ie ritalin or sterids) at this point in his life. (4) Hypotension: Status: Acute Assessment and plan: He is on half the dose of pressors he needed yesterday. Systolic BP was in the 120s during my visit. I think he might surprise us with his ability to tolerate coming off. (5) Physician orders for life-sustaining treatment (POLST) form indicates patient wish for [id number] status: Status: Acute Assessment and plan: Done with Dr Martin in Feb 2020. He wants minimal interventions now, just those aimed at his comfort. (6) Palliative care patient: Status: Acute (7) Poorly controlled diabetes mellitus: Status: Chronic (8) Goals of care, counseling/discussion: Status: Acute Assessment and plan: I was surprised at home calm and measured Sher was during our conversation. He had already come to the conclusion that his was near the horizon before I started speaking to him. He said he didn't expect he would ever return to his apartment. He said he made his cremation plans prior tot his admission. He wants to be kept comfortable. He doesn't want to have any more testing. (CT scan was cancelled, per report). He wanted to drink water. (9) Comfort measures only status: Status: Acute Assessment and plan: I made this recommendation based on Sher's wishes to hospitalist Dr Fleming. (10) Dying care: Status: Acute Assessment and plan: If we could allow his sons to visit, that would be in his best interest. Review of Systems Constitutional Constitutional: Reports fatigue, Reports lethargy and Reports weakness Eyes Eyes: Reports blurry vision and Reports dry eyes ENT Ears, Nose, Mouth, and Throat: Reports dry mouth Cardiovascular Cardiovascular: Reports dyspnea on exertion Respiratory Respiratory: Reports dyspnea on exertion Gastrointestinal Gastrointestinal: Reports constipation and Reports early satiety Genitourinary Genitourinary: Reports difficulty urinating Musculoskeletal Musculoskeletal: Reports muscle weakness Integumentary/Breasts Skin/Breast: Reports dry skin and Reports alopecia Neurologic Neurologic: Denies confusion and Reports weakness Psychiatric Psychiatric: Denies anxiety, Denies confusion and Denies depression Endocrine Endocrine: Reports fatigue Hematologic/Lymphatic Hematologic/Lymphatic: Reports easy bruising PFSH Medical History Abnormal finding of kidney Anxiety with depression Aortic valve replaced Back pain CAD (coronary artery disease) Comfort measures only status COPD (chronic obstructive pulmonary disease) CVA (cerebral vascular accident) Diabetic neuropathy DM (diabetes mellitus) Dying care GERD (gastroesophageal reflux disease) Goals of care, counseling/discussion H/O: HTN (hypertension) Hematuria HFrEF (heart failure with reduced ejection fraction) History of bloody stools HTN (hypertension) Hx of fall Hyperlipidemia Hypothyroidism Hypothyroidism (acquired) Insomnia Memory impairment Obesity IVETTE (obstructive sleep apnea) IVETTE on CPAP Pacemaker Paroxysmal atrial fibrillation Passive suicidal ideations Perforated tympanic membrane Polypharmacy Proteinuria Rash, skin Renal insufficiency Sick sinus syndrome Sinus node dysfunction Tinea cruris Surgical History Coronary Artery Bypass Gaft (CABG) Coronary Stent CABGx4 H/O carotid endarterectomy Pacemaker Replacement of aortic valve Family History (Updated 04/22/20 @ 17:05 by Serenity Turner MD) Son No problems noted. Son No problems noted. Other Cancer Heart disease Social History (Updated 04/22/20 @ 17:09 by Serenity Turner MD) Smoking/Tobacco Use Status: Never Smoking risk assessment performed?: Yes Alcohol Intake: former Drug use: Never Substance use type: does not use Details: Pt reports no alcohol since his heart attack 1995 Caregiver/Support person: No Household members: none Housing: other Details: [facility] Number of Children: 2 Communication Needs: Hard of Hearing and Cannot Read Education Level: middle school Do you need help understanding health information?: Always current occupation: Lives at [facility]. Disabled since . Pets and animals: No Current gender identity: male What is your relationship status?: How often do you talk on the phone with friends or family?: once per week How often do you get together with friends or relatives?: never Panel score (0-1 are the most socially isolated patients): 0 What type of physical activity do you participate in: none and sedentary lifestyle Keri/Buddhism: Mu-Ism Special keri needs: No Agree to transfusion: No Seatbelt use: always Water heater temp set <120 deg: Yes Working smoke detector in home: Yes Fire extinguisher in home: Yes Do you feel safe at home: Yes Do you feel safe in your relationship?: Yes Additional Social history: Until Apr 2020, he has lived alone in elderly independent living. He has had help from and [place] [facility]. He knows he is not going to return to [facility]. He needs people to take care of him. He states that he is dying. He says he has talked about this with his 2 sons and he wants to be cremated. Exam Narrative Exam Narrative: General: Pleasant elderly obese male, very pale HEENT: EOMI, dry MM, with chapped lips and parched tongue, chronic facial droop Heart: RRR, +MARCY Lungs: Diminished breath sounds B with faint crackles B bases, no increased work of breathing, do dyspnea with talking Abdomen: soft, nontender, nondistended. Extremities: no edema BLEs, reduced muscle mass Neuro: alert and oriented x 3, expressed insight into his condition, reports that he knows he is dying, not frightened or worried Psych: no evidence of anxiety or depression, he denies both skin: very pale, no rashes or lesions, balding : sotelo in place Results Last Vital Signs Temp 97.3 F L 04/22/20 04:00 Pulse 94 H 04/22/20 14:31 Resp 25 H 04/22/20 14:31 BP 116/88 04/22/20 14:31 Pulse Ox 94 04/22/20 14:31 Labs Result diagrams: 04/22/20 06:03 04/22/20 06:03 Labs: Laboratory Results - last 24 hr 04/21/20 04/21/20 04/22/20 15:55 20:56 06:03 WBC RBC Hgb Hct MCV MCH MCHC RDW Plt Count MPV Immature Gran % Neutrophils % Band Neutrophils % Lymphocytes % Monocytes % Eosinophils % Basophils % Nucleated RBC % Absolute Neutrophils Absolute Lymphocytes Absolute Monocytes Absolute Eosinophils Absolute Basophils RBC Morphology Polychromasia Poikilocytosis VBG Lactate Sodium 138 Potassium 3.8 Chloride 105 Carbon Dioxide 19.1 L Anion Gap 13.9 H BUN 16 Creatinine 1.4 H Estimated GFR/1.73 m2 50.55 Glucose 199 H Calcium 8.2 L Magnesium 1.8 Total Bilirubin 0.8 Conjugated Bilirubin 0.26 H AST 17 ALT 9 L Alkaline Phosphatase 116 Troponin I 0.71 H* 0.98 H* 0.63 H* C-Reactive Protein > 25.00 H Total Protein 5.2 L Albumin 1.2 L Lipase 41 Procalcitonin 04/22/20 04/22/20 04/22/20 06:03 06:03 06:03 WBC 19.48 H RBC 3.69 L Hgb 11.0 L D Hct 33.7 L MCV 91.3 MCH 29.8 MCHC 32.6 RDW 14.3 H Plt Count 290 MPV 9.9 Immature Gran % 0.0 Neutrophils % 82.0 Band Neutrophils % 1 Lymphocytes % 5.0 Monocytes % 9.0 Eosinophils % 1.0 Basophils % 5.0 Nucleated RBC % 0 Absolute Neutrophils 16.17 H Absolute Lymphocytes 0.97 L Absolute Monocytes 1.75 H Absolute Eosinophils 0.19 Absolute Basophils 0.97 H RBC Morphology See below Polychromasia Present Poikilocytosis 2+ VBG Lactate Sodium Potassium Chloride Carbon Dioxide Anion Gap BUN Creatinine Estimated GFR/1.73 m2 Glucose Calcium Magnesium Total Bilirubin Conjugated Bilirubin AST ALT Alkaline Phosphatase Troponin I Cancelled C-Reactive Protein Total Protein Albumin Lipase Procalcitonin 1.2 04/22/20 04/22/20 09:20 12:11 WBC RBC Hgb Hct MCV MCH MCHC RDW Plt Count MPV Immature Gran % Neutrophils % Band Neutrophils % Lymphocytes % Monocytes % Eosinophils % Basophils % Nucleated RBC % Absolute Neutrophils Absolute Lymphocytes Absolute Monocytes Absolute Eosinophils Absolute Basophils RBC Morphology Polychromasia Poikilocytosis VBG Lactate 1.0 1.4 Sodium Potassium Chloride Carbon Dioxide Anion Gap BUN Creatinine Estimated GFR/1.73 m2 Glucose Calcium Magnesium Total Bilirubin Conjugated Bilirubin AST ALT Alkaline Phosphatase Troponin I C-Reactive Protein Total Protein Albumin Lipase Procalcitonin
[2020-04-22] MEDS: Pantoprazole 40 MG TABCR PO (20:14)
[2020-04-22] MEDS: Lidocaine 5% Patch 1 PATCH TP (20:15)
[2020-04-22] MEDS: Mirtazapine 15 MG TAB PO (20:18)
[2020-04-22] MEDS: Levothyroxine 150 MCG TAB PO (20:18)
[2020-04-22] MEDS: Insulin Glargine 300 UNITS/3 ML PEN 10 UNITS SC (20:28)
[2020-04-23] MEDS: LORazepam 2 MG/ML VIAL IV/SC ×2 (01:04→02:01)
[2020-04-23] MEDS: Normal Saline Flush 10 ML SYR IVP ×3 (01:05→03:19)
[2020-04-23] MEDS: MORPHine 4 MG/ML SYR IV/SC (03:20)
[2020-04-23 04:00] VITALS: TEMP 37.4
[2020-04-23] MEDS: Lidocaine Patch Removal 1 EACH TP (05:44)
--- NOTE | 2020-04-23 06:47 | NUR.NOTE ---
11-7 synopsis--pt was mildly confused at 2300 and cooperative. by 0045, pt was becoming more awake, more confused and more restless. tried to clomb oob and stated I am dying and I need to go to my apartment to take care of my stuff. Pt medicated with 1mg iv lorazepam at 0104 with no relief whatsoever. another dose of lorazepam given at 0209 with pt becoming more and more restless and agitated. 0320-pt has been refusing morphine up till now but finally shook his head yes when asked if he wanted some. medicated with 2mg iv morphine. pt still very restless and trying to leave and eventually got himself in the prone position and was distressed over this but could not get himself rolled over. 2 nurses helped pt back onto his back with pt still restless and turning self side to side frequently. pt finally fell asleep about 0445 and has stayed so.
[2020-04-23] MEDS: Normal Saline Flush 10 ML SYR 20 ML IVP ×2 (08:18→21:00)
--- NOTE | 2020-04-23 09:14 | SPP_ITS ---
Date of Service April 23, 2020 Subjective Chart reviewed. Pt has been placed on comfort measures only. Spoke to nsg, who confirms this. Pt will no longer have PO restrictions per nsg. 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 Coding
[2020-04-23] MEDS: MORPHine 250 MG in Normal Saline 245 ML IV (09:27)
--- NOTE | 2020-04-23 10:01 | CMPROGNOTE_ITS ---
- If Service Date Differs Date of service: 04/23/20 Time of Service: 10:01 Care Management Progress Note S/O: Sher was placed on comfort measures last evening and this morning he was placed on a morphine drip at 1mg/hr. He was asleep each time CM met with him and was very difficult to rouse. Sher's son Casey and ex- Ling came to see him this afternoon. They asked CM for information about cremation and final arrangements and CM provided several handouts that address these issues. Casey and Ling were also having difficulty rousing Sher but with his nurse's help, Sher was able to wake up and to visit with and talk to his family and watch videos on a DVD . Casey and Amy created the DVD which contains pictures from the boy's childhood and younger years. A: Sher is a 69 year old male admitted to [facility] on 04/16/2020 for acute kidney injury, generalized weakness, and a UTI. P: Sher has been made comfort measures and is currently receiving an infusion of IV morphine. He appears very comfortable and verbalizes the same. Sher will likely remain at [facility] for end of life care. CM will continue to support Sher, his family and his discharge planning needs.
[2020-04-23] MEDS: Scopolamine 1 MG/3 DAYS PATCH TD (12:00)
--- NOTE | 2020-04-23 15:56 | W.PM.PROGNOT ---
Date of Service Date of service: 04/23/20 Time of Service: 15:56 Assessment and Plan Assessment and plan (1) Comfort measures only status: Start date: 04/23/20 Start time: 15:59 Status: Acute Assessment and plan: After discussion with Dr. 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 He did have agitation last night and was requiring ativan, with morphine. He was placed on morphine infusion today for comfort. He appeared comfortable when he was seen. He had snoring respirations. Ativan as needed. Scopalimine. Atropine, continue to monitor comfort of patient and titrate drip as needed. (2) Dying care: Start date: 04/23/20 Start time: 16:01 Status: Acute Assessment and plan: as above, he stated to Dr. Turner he knew he was dying and did not want any more treatment. above case discussed with Dr. Fleming. Subjective Subjective Patient reports: other Interval history since last seen: He appears calm and pain free. Overnight he was restless and agitated requiring ativan and morphine. He has been placed on morphine drip with titration as needed for comfort. Will continue to monitor comfort. 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 He is arousable at this time. Continues to make urine. He does not want any more treatment. Morphine drip started will continue to work on comfort. Objective Last Vital Signs Temp 37.4 C 04/23/20 04:00 Pulse 81 04/22/20 18:00 Resp 13 04/22/20 19:00 BP 108/61 04/22/20 18:00 Pulse Ox 97 04/22/20 14:45 Laboratory Results - last 24 hr 04/22/20 14:05 VBG Lactate Cancelled
--- NOTE | 2020-04-23 18:20 | INDS_ITS ---
Date of service: 04/23/20 PT Notes Visit Reasons: ACUTE KIDNEY INJURY, GENERALIZED WEAKNESS, UTI Physical Therapy Inpatient Discharge Summary Date: 04/23/20 Dates of Service: 04/21/2020 through 04/22/2020 This is a clinical summary of care provided on the duration of dates listed above. No charge was made in the completion of this documentation. Referring Doctor: Dameon Gonzalez MD PT Orders: PT CONSULT: Limited Ability Precautions: Standard. Fall. Activity as tolerated. Patient Profile/Admitting Diagnosis: Sher is a 69-year-old male who presented to the ED on 04/16/2020 due to complaints of generalized weakness and fall. He is diagnosed with acute kidney injury superimposed on chronic kidney disease, generalized weakness, urinary tract infection, paroxysmal atrial fibrillation, and repeated falls. He was transferred to ICU level of care this past weekend for close monitoring of suspected GI bleeding and hypotension. PMHX: Medical History Abnormal finding of kidney Anxiety with depression Aortic valve replaced Back pain CAD (coronary artery disease) COPD (chronic obstructive pulmonary disease) CVA (cerebral vascular accident) Diabetic neuropathy DM (diabetes mellitus) GERD (gastroesophageal reflux disease) H/O: HTN (hypertension) Hematuria HFrEF (heart failure with reduced ejection fraction) History of bloody stools HTN (hypertension) Hx of fall Hyperlipidemia Hypothyroidism Hypothyroidism (acquired) Insomnia Memory impairment Obesity IVETTE (obstructive sleep apnea) IVETTE on CPAP Pacemaker Paroxysmal atrial fibrillation Passive suicidal ideations Perforated tympanic membrane Polypharmacy Proteinuria Rash, skin Renal insufficiency Sick sinus syndrome Sinus node dysfunction Tinea cruris Surgical History Coronary Artery Bypass Gaft (CABG) Coronary Stent CABGx4 H/O carotid endarterectomy Pacemaker Replacement of aortic valve Social History/Home Situation: Patient lives at home alone at the [facility]. He does have a walker that he utilizes at baseline. Patient states that he is on a list and has already been accepted to receive a motorized wheelchair. Today, he states that he has decided to just buy a friend's motorized wheelchair as he is not sure when he can move up in this list. Equipment Owned/DME: Front-wheeled walker Subjective: None reported Objective: General observation: None reported Mental Status: None reported Pain: None reported ROM: Right Upper Extremity: Shoulder Flexion allows up to 100 degrees only. Shoulder abduction allows up to about 90 degrees only. Elbow flexion WFL. Wrist flexion WFL. Functional opening and closing of hand WFL. Left Upper Extremity: Shoulder Flexion allows up to 100 degrees only. Shoulder abduction allows up to about 90 degrees only. Elbow flexion WFL. Wrist flexion WFL. Functional opening and closing of hand WFL. Right Lower Extremity: Hip flexion WFL. Hip abduction WFL. Knee flexion WFL. Ankle dorsiflexion WFL. Ankle plantarflexion WFL. Left Lower Extremity: Hip flexion WFL. Hip abduction WFL. Knee flexion WFL. Ankle dorsiflexion about 10 degrees above neutral. Ankle plantarflexion WFL. Strength: Right Upper Extremity: Shoulder flexors 3-/5. Shoulder abductors 3-/5. Elbow flexors 4/5. Elbow extensors 4/5. Career Guidance Counselor strong. Left Upper Extremity: Shoulder flexors 3-/5. Shoulder abductors 3-/5. Elbow f lexors 4/5. Elbow extensors 4/5. Career Guidance Counselor strong. Right Lower Extremity: Hip flexors 3+/5. Hip abductors 4-/5. Knee flexors 4/5. Knee extensors 4-/5. Ankle dorsiflexors 4-/5. Ankle plantarflexors 4-/5. Left Lower Extremity: Hip flexors 3+/5. Hip abductors 4-/5. Knee flexors 4/5. Knee extensors 4-/5. Ankle dorsiflexors 3-/5. Ankle plantarflexors 4-/5. Bed Mobility/Transfers: Sit to supine standby assist with HOB at 30 degrees Sit to stand minimal assist of 2 Stand to sit minimal assist of 2 Bed to chair unable Chair to bed unable Gait: Unable Balance: Static Sitting: Good Dynamic Sitting: Fair Static Standing: Unable Dynamic Standing: Unable ASSESSMENT: Discharge to comfort measures as of 04/22/2020. Sher continues to demonstrate functional mobility pain, generalized weakness, impairment in balance, and increased risk for falls due to admitting diagnoses and co- morbidities. He will benefit from PT services in order to facilitate return to premorbid independent level and maximize ability to return and stay at home. Patient continues to present with clinical signs and symptoms consistent with current/admitting diagnoses that have resulted to mobility limitations, gait instability, generalized weakness, and impairment of motor control as demonstrated by the following impairment level findings: 1. Decreased strength to B UE/LE major muscle groups 2. Impaired standing balance and tolerance 3. Impaired activity tolerance 4. Limitation of joint range of motion in B shoulders 5. Lethargy Impairments are continuing to contribute to the following functional limitations: 1. Inability to tolerate transfers 2. Inability to safely ambulate 3. Increased fall risk Goals: Goals X1 week 1. Supine-Sit standby assist NOT MET 2. Sit-Supine standby assist NOT MET 3. Sit-Stand standby assist NOT MET 4. Stand-Sit minimal assist NOT MET 5. Bed-Chair minimal assist NOT MET 6. Gait supervision with the assistance of front wheel walker up to 100 feet NOT MET DISCHARGE RECOMMENDATIONS: Patient will benefit from shelter facility placement for continued skilled physical therapy services in order to progress mobility level, strength, and balance in preparation for a safe discharge to home. Will benefit from the use of a motorized wheelchair for community ambulation. TREATMENT CODE/TIME: [place] Thank you for the opportunity to participate in the care of this patient. Melissa Cavazos PT, DPT, CLT [facility] [place], [place]
--- NOTE | 2020-04-23 18:55 | CHAPLAIN ---
I didn't not visit with Sher today. He was sleeping when I checked in. His exwife and son spent time with him today and brought in a family video for him to watch with them. Sher is on comfort measures and is expected to remain here through the end of his life.
--- NOTE | 2020-04-24 08:48 | PDOC.CMPRO ---
Care Management Progress Note S/O: Sher remains on comfort measures last evening and on a morphine drip. He was asleep each time CM met with him and was very difficult to rouse. Sher's son Casey and ex- Ling asked for information about cremation and final arrangements and CM provided resources and will continue to follow. A: Sher is a 69 year old male admitted to [facility] on 04/16/2020 for acute kidney injury, generalized weakness, and a UTI. P: Sher has been made comfort measures and is currently receiving an infusion of IV morphine. He appears very comfortable and verbalizes the same. Sher will likely remain at [facility] for end of life care. CM will continue to support Sher, his family and his discharge planning needs.
[2020-04-24] MEDS: Normal Saline Flush 10 ML SYR 20 ML IVP (09:57)
--- NOTE | 2020-04-24 11:29 | W.PM.PROGNOT ---
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 Tuttle not to continue further medical treatment. Mr. Marquez has severe inoperative coronary artery disease along with COPD and previous strokes as well as heart failure with reduced ejection fraction and IVETTE who initially presented to the hospital after having had a series of falls at home and having hematemesis. His EGD had demonstrated 3 cm villous changes of his proximal stomach consistent with either neoplasm or an acute inflammatory process. He was also felt to have sepsis and was treated with IV antibiotics which have since been discontinued. He also sustained a non-ST elevation NE felt to be type II demand ischemia from his sepsis and his anemia. Present time he appears to be comfortable on a morphine drip at 1 mg/h. He is not required any boluses and has not required any Ativan for anxiety. He has orders for as needed atropine drops for congestion. (2) Dying care: Status: Acute Assessment and plan: As above Subjective Subjective Interval history since last seen: Patient is somnolent but does open his eyes to sternal rub but is unable to keep his eyes open or sustain any kind of attention. He is nonverbal. Sonorous respirations. Lungs are congested with rales. Exam Narrative Exam Narrative: Somnolent elderly male with sonorous respirations arousable only to tactile stimulation with deep sternal rub. Nonverbal does not follow any commands. Lungs with coarse rales. Objective Last Vital Signs Temp 37.4 C 04/23/20 04:00 Pulse 81 04/22/20 18:00 Resp 13 04/22/20 19:00 BP 108/61 04/22/20 18:00 Pulse Ox 97 04/22/20 14:45
[2020-04-25] MEDS: Normal Saline Flush 10 ML SYR 20 ML IVP ×2 (09:20→20:16)
--- NOTE | 2020-04-25 12:44 | W.PM.PROGNOT ---
Date of Service Date of service: 04/25/20 Time of Service: 12:44 Assessment and Plan Assessment and plan (1) Comfort measures only status: Status: Acute Assessment and plan: Mr. Hinkle remains on comfort focused care. He appears comfortable. Morphine drip is at 1.5 mg/hr. Nursing is encouraged to give bolus prior to repositioning. He has had increased respiratory secretions. He has a scopolamine patch ordered and PRN atropine. He has PRN medications ordered for symptom management. Continue comfort care. (2) Dying care: Status: Acute Assessment and plan: as above. Subjective Subjective Interval history since last seen: Nursing reports that Sher was showing signs of discomfort when he was turned. His MS drip has been increased to 1.5 mg/hr. Nursing is encouraged to give a bolus prior to repositioning. Mr. Hinkle is resting in bed, he briefly opens his eyes to verbal stimuli, he is unable to speak. He was given atropine for secretions. Nursing verbalizes no concerns. Exam Narrative Exam Narrative: General: resting in bed with eyes closed, opens eyes briefly to verbal stimuli. He is unable to speak. He appears pale. Appears to be comfortable, no grimacing or furrowed brows. HEENT: mucous membranes dry. Cardiovascular: it is difficult to hear heart sounds over lung sounds. Respiratory: mildly increased secretions. Respirations appear even and unlabored, lung sounds congested, he has inspiratory and expiratory wheezes. No apnea during visit. GI: +BS, abdomen soft, nondistended. Extremities: no pitting edema. No mottling of skin. Objective Last Vital Signs Temp 37.4 C 04/23/20 04:00 Pulse 81 04/22/20 18:00 Resp 13 04/22/20 19:00 BP 108/61 04/22/20 18:00 Pulse Ox 97 04/22/20 14:45
--- NOTE | 2020-04-25 13:52 | CMPROGNOTE_ITS ---
Care Management Progress Note S/O: Sher remains on comfort measures on a morphine drip. Sher's son Casey and ex- Ling asked for information about [facility] and final arrangements, CM provided resources and will continue to follow. A: Sher is a 69 year old male admitted to [facility] on 04/16/2020 for acute kidney injury, generalized weakness, and a UTI. P: Sher has been made comfort measures and is currently receiving an infusion of IV morphine. He will remain at [facility] for end of life care. CM will continue to support Sher, his family.
[2020-04-25] MEDS: LORazepam 2 MG/ML VIAL IV/SC ×2 (15:56→20:40)
[2020-04-25] MEDS: Normal Saline Flush 10 ML SYR IVP ×2 (16:00→20:40)
[2020-04-26] MEDS: Glycopyrrolate 0.2 MG/1 ML VIAL IVP ×4 (08:44→17:06)
[2020-04-26] MEDS: Normal Saline Flush 10 ML SYR 20 ML IVP (08:45)
--- NOTE | 2020-04-26 09:24 | W.PM.PROGNOT ---
Date of Service Date of service: 04/26/20 Time of Service: 09:24 Assessment and Plan Assessment and plan (1) Comfort measures only status: Status: Acute Assessment and plan: Mr. Hinkle remains on comfort focused care. He appears comfortable. Morphine drip is at 1.5 mg/hr. Nursing is encouraged to give bolus prior to repositioning. He has had increased respiratory secretions. Scopolamine patch due to be changed today. Continue PRN atropine and Glycopyrrolate. He has PRN medications ordered for symptom management. Continue comfort care. (2) Dying care: Status: Acute Assessment and plan: as above. Subjective Subjective Interval history since last seen: Mr. Hinkle's morphine drip remains at 1.5 mg/hr. Nursing is giving boluses prior to position changes. Nursing reports that Sher has increased secretions. He has received glycopyrrolate this morning and oral suctioning. His scopolamine patch is due to be changed today. Nursing advised that they can use atropine as well. No further concerns verbalized by nursing. Exam Narrative Exam Narrative: General: resting in bed with eyes closed, did not open eyes to verbal stimuli during exam today. He is unable to speak. He appears pale. Appears to be comfortable, no grimacing or furrowed brows. HEENT: mucous membranes dry. Cardiovascular: it is difficult to hear heart sounds over lung sounds. Heart sounds regular. Respiratory: increased secretions. Respirations appear even and unlabored, lung sounds congested, he has inspiratory and expiratory wheezes. No apnea during visit. GI: +BS, abdomen soft, nondistended. Extremities: no pitting edema. No mottling of skin. Objective Last Vital Signs Temp 37.4 C 04/23/20 04:00 Pulse 81 04/22/20 18:00 Resp 13 04/22/20 19:00 BP 108/61 04/22/20 18:00 Pulse Ox 97 04/22/20 14:45
[2020-04-26] MEDS: Normal Saline Flush 10 ML SYR IVP ×3 (09:46→17:07)
[2020-04-26] MEDS: Scopolamine 1 MG/3 DAYS PATCH TD (12:29)
--- NOTE | 2020-04-26 13:36 | PDOC.CMPRO ---
Care Management Progress Note S/O: Sher remains on comfort measures on a morphine drip. Sher's son Casey and ex- Ling have chosen [facility] in [place] for final arrangements, CM continues to follow. A: Sher is a 69 year old male admitted to [facility] on 04/16/2020 for acute kidney injury, generalized weakness, and a UTI. P: Sher remains on comfort measures and IV morphine. He will remain at [facility] for end of life care, the family has chosen [facility] in [place]. CM will continue to support Sher, his family.
[2020-04-26 14:20] VITALS: PULSE 87; RESP 12; O2SAT 92
[2020-04-26 17:09] VITALS: PULSE 98; RESP 28; O2SAT 91
[2020-04-26 18:42] VITALS: TEMP 37.7
[2020-04-26 19:05] VITALS: TEMP 37.7
[2020-04-26 21:00] VITALS: PULSE 91; RESP 22; TEMP 37.3; O2SAT 93
[2020-04-27] MEDS: Glycopyrrolate 0.2 MG/1 ML VIAL IVP ×2 (01:10→07:53)
[2020-04-27] MEDS: LORazepam 2 MG/ML VIAL IV/SC ×2 (01:22→07:53)
[2020-04-27] MEDS: Normal Saline Flush 10 ML SYR IVP (01:22)
[2020-04-27] MEDS: Normal Saline Flush 10 ML SYR 20 ML IVP (07:55)
--- NOTE | 2020-04-27 08:10 | PDOC.CMPRO ---
- If Service Date Differs Date of service: 04/27/20 Time of Service: 08:10 Care Management Progress Note S/O: Sher remains on comfort measures on a morphine drip. A: Sher is a 69 year old male admitted to [facility] on 04/16/2020 for acute kidney injury, generalized weakness, and a UTI. P: Sher remains on comfort measures and IV morphine. He will remain at [facility] for end of life care, the family has chosen [facility] in [place]. will continue to support Sher, his family.
--- NOTE | 2020-04-27 11:03 | W.PM.PROGNOT ---
Date of Service Date of service: 04/27/20 Time of Service: 11:03 Assessment and Plan Assessment and plan (1) Comfort measures only status: Start date: 04/27/20 Start time: 11:16 Status: Acute Assessment and plan: Mr. Hinkle remains on comfort focused care. He appears comfortable. Morphine drip is at 1.5 mg/hr. Nursing is encouraged to give bolus prior to repositioning. He has had increased respiratory secretions. Scopolamine patch due to be changed. Continue PRN atropine and Glycopyrrolate. He has PRN medications ordered for symptom management. Continue comfort care. (2) Dying care: Start date: 04/27/20 Start time: 11:17 Status: Acute Assessment and plan: as above case discussed with Dr. Seay. Subjective Subjective Patient reports: no new complaints Interval history since last seen: Patient unresponsive to verbal stimuli. Continues to produce secretions. Nursing giving glycopyroolate and oral suctioning. Scopolamine patch changed yesterday. Drip is at 1.5 mg with boluses during position changes. Nursing reports no concerns. Exam Narrative Exam Narrative: Exam Narrative: General: resting in bed with eyes closed, did not open eyes to verbal stimuli during exam today. He is unable to speak. He appears pale. Appears to be comfortable, no grimacing or furrowed brows. HEENT: mucous membranes dry. Cardiovascular: it is difficult to hear heart sounds over lung sounds. Heart sounds regular. Respiratory: increased secretions. Respirations appear even and unlabored, lung sounds congested, he has inspiratory and expiratory wheezes. No apnea during visit. GI: +BS, abdomen soft, nondistended. Extremities: no pitting edema. No mottling of skin. Objective Last Vital Signs Temp 37.3 C 04/26/20 21:00 Pulse 91 H 04/26/20 21:00 Resp 22 04/26/20 21:00 BP 108/61 04/22/20 18:00 Pulse Ox 93 04/26/20 21:00
--- NOTE | 2020-04-27 14:00 | CHAPLAIN ---
Sher was unresponsive today and not long after 1 p.m. He appeared to be comfortable this morning. Family members visited during the weekend. Sher's sister, Serenity Hairston, in a patient in Room 231. She was aware the Sher was on comfort measures and not responsive. She asked to be notified when Sher . She is on Sher's HIPPA form and ICU nurses gave me permission to let Serenity know that Sher had . She was going to let two other brothers know about Sher's . I offered a prayer for Sher before nurses began their duties in cleaning him up.
--- NOTE | 2020-04-27 15:34 | W.PM.DDS ---
Date of service: 04/27/20 Time of Service: 15:34 Discharge Sum: Prov Provider Primary care physician: Ciara Tobias Admitting clinician: Dameon Gonzalez Attending physician on admission: Traci Yanez Consults: 04/16/20 08:12 Palliative Care Consult [CONS] Routine Consultation Status:: Follow-up needed Clarification:: Manage/follow per spec. 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 Additional Data Confirmation of as documented by pronouncing clinician: no pulse, no respirations and no heart sounds Family: contacted Was code activated?: No Autopsy requested?: No Hospice patient?: No
--- NOTE | 2020-04-27 19:56 | CMPROGNOTE_ITS ---
- If Service Date Differs Date of service: 04/27/20 Time of Service: 19:56 Care Management Progress Note S/O: Sher peacefully at 1320 this afternoon. His sister Serenity was notified by Chaplain Daniel and other family members by nursing staff. P: The family has chosen [facility] in [place] for final arrangements.
== END 2020-04-27 13:22 | disposition expired | DRG 682 ==
LOC: ER 05:59 → MS 06:06 → ICU 04-18 19:04
PROVIDERS: Internal Medicine; Nurse Practitioner Family; Surgery; Admitting Provider Family Medicine; Emergency Provider Emergency Medicine; PCP Family Medicine; Visit Provider Family Medicine
PROC: 0DJ68ZZ Inspection of Stomach, Via Natural or Artificial Opening Endoscopic (ICD-10-PCS; CPT 43235; principal; 2020-04-19 12:45)
DX: N17.9 Acute kidney failure, unspecified (principal); J69.0 Pneumonitis due to inhalation of food and vomit; I21.A1 Myocardial infarction type 2; R65.21 Severe sepsis with septic shock; A41.9 Sepsis, unspecified organism; I13.0 Hypertensive heart and chronic kidney disease with heart failure and stage 1 through stage 4 chronic kidney disease, or unspecified chronic kidney disease; I50.20 Unspecified systolic (congestive) heart failure; K92.0 Hematemesis; I48.0 Paroxysmal atrial fibrillation; Z79.4 Long term (current) use of insulin; E11.22 Type 2 diabetes mellitus with diabetic chronic kidney disease; N18.9 Chronic kidney disease, unspecified; R53.1 Weakness; W18.11XA Fall from or off toilet without subsequent striking against object, initial encounter; Z79.01 Long term (current) use of anticoagulants; F41.8 Other specified anxiety disorders; Z95.2 Presence of prosthetic heart valve; I25.10 Atherosclerotic heart disease of native coronary artery without angina pectoris; J44.9 Chronic obstructive pulmonary disease, unspecified; Z86.73 Personal history of transient ischemic attack (TIA), and cerebral infarction without residual deficits; E11.40 Type 2 diabetes mellitus with diabetic neuropathy, unspecified; K21.9 Gastro-esophageal reflux disease without esophagitis; R29.6 Repeated falls; E78.5 Hyperlipidemia, unspecified; E03.9 Hypothyroidism, unspecified; G47.00 Insomnia, unspecified; E66.9 Obesity, unspecified; G47.33 Obstructive sleep apnea (adult) (pediatric); Z95.1 Presence of aortocoronary bypass graft; Z95.5 Presence of coronary angioplasty implant and graft; Z95.0 Presence of cardiac pacemaker; I95.9 Hypotension, unspecified; Z66 Do not resuscitate; D50.0 Iron deficiency anemia secondary to blood loss (chronic); M62.81 Muscle weakness (generalized); Z51.5 Encounter for palliative care; E11.65 Type 2 diabetes mellitus with hyperglycemia
CPT/HCPCS: 43239; 36410; 36415; 71275; 80048; 80053; 80076; 83690; 84145; 87040; 88305; 93005; 94640; 96361; 96365; 97110; 97162; 97163; 97530; 99220; 99221; 99231; 99232; 99233; 99239; 99255; 99285; 99291; J3490; U0003; 71045; 72050; 72110; 76700; 81003; 81015; 83036; 83605; 83735; 84484; 85014; 85018; 85025; 86140; 87086; 93010; 93306; 94660; G0378; J0696; J2001; J2060; J2270; J2405; J2543; J2704; J3475